=== PATIENT | male | born 1940 | race Caucasian/White ===

== ENCOUNTER → 2016-03-25 | Outpatient (CLI) | payer MEDICARE, OTHER ==
[~2016-03-25] MED LIST: APIX5TAB PO; ASPI-586 PO; ASPI-84 PO; CEPH500C PO; CEPH500T PO; CHOL200018 PO; CLPD75T PO; FINA5TAB6 PO; FURO40TA4 PO; GLIM2TAB PO; JANUVIA; LISI-552 PO; METO25TA PO; MULT1CAP27 PO; NIA500ERT PO; OMG1KC PO; PANT40TA3 PO; PIOG1TAB10 PO; PIOG30TA26 PO; POTA10TA36 PO; QUIN10TA PO; RIVA20TA PO; SIMV40TA2 PO; SIMV40TA4 PO; SITA100T12 PO; TAMS0.4C2 PO
--- NOTE | 2016-03-25 11:42 | Diagnostic Imaging Report ---
PROCEDURE: CT abdomen and pelvis without contrast. TECHNIQUE: Multiple contiguous axial images were obtained through the abdomen and pelvis without the use of intravenous contrast. INDICATION: Gross hematuria with lower back pain x 2 weeks. COMPARISON STUDY: CT scan dated 11/07/2013. FINDINGS: There has been development of a 2.8 cm right pleural effusion. Coronary artery calcifications are present. A cardiac pacemaker is in place. The liver, gallbladder, spleen, pancreas, and adrenal glands appear normal. The left kidney appears normal. Some stranding around the left kidney is unchanged. A 4.6 cm cyst in the upper pole of the right kidney is unchanged. Some calcifications seen in the right kidney appear to be vascular. Some stranding of the adjacent fat was seen previously. A small fat-containing umbilical hernia is present. The urinary bladder is contracted. Its wall thickening is probably secondary to the bladder being contracted. There are a few colonic diverticuli without inflammation. The bowel loops are otherwise normal. No ascites, free air, or abnormal adenopathy. Arteriosclerosis is present. 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 There is probably a stenosis at the aortic bifurcation. Degenerative changes are present in the sacroiliac joints and lumbar spine. IMPRESSION: 1. The urinary bladder is contracted with bladder wall thickening. This could be due to the bladder being contracted. 2. No renal calculus or hydronephrosis is present. 3. There is chronic stranding of the perinephric fat. 4. Diverticulosis is again identified. 5. Arteriosclerosis. 6. There has been development of a right pleural effusion. Dictated by: Dictated on workstation # [id number]
== END ==
LOC: RAD 11:12
PROVIDERS: ATTEND Urology
DX: K57.90 Diverticulosis of intestine, part unspecified, without perforation or abscess without bleeding (principal); J90 Pleural effusion, not elsewhere classified; R31.0 Gross hematuria
CPT/HCPCS: 74176

== ENCOUNTER 2016-04-07 11:23 | Inpatient (IN) | payer MEDICARE, OTHER ==
[~2016-04-07] VITALS: Ht 162.6 cm; Wt 73.5 kg
[~2016-04-07 11:23] MED LIST changes: -APIX5TAB PO; -ASPI-586 PO; -CEPH500C PO; -CEPH500T PO; -FINA5TAB6 PO; -FURO40TA4 PO; -GLIM2TAB PO; -LISI-552 PO; -PANT40TA3 PO; -PIOG30TA26 PO; -POTA10TA36 PO; -RIVA20TA PO; -SIMV40TA4 PO; -SITA100T12 PO; -TAMS0.4C2 PO
--- NOTE | 2016-04-07 11:40 | ED General ---
General Stated Complaint: FALL Source of Information: Patient Exam Limitations: No Limitations History of Present Illness Time Seen by Provider: 11:38 Initial Comments To ER per EMS from home with reports of a fall. Full occurred secondary to dizziness and it occurred 7-8 days ago he believes, however he reports that it was on Thursday that he fell and he was unaware that yesterday was Thursday.. He denies striking his head that he recalls but is not sure. He states that he's been laying on the floor for the past 7-8 days unable to obtain food or water. Today he finally was able to crawl to a telephone call his brother found him and summoned EMS. Timing/Duration: 1-2 Days Severity: Moderate Allergies and Home Medications Allergies Coded Allergies: No Known Drug Allergies (Unverified , 06/02/10) Home Medications ?MG DAILY (Reported) Aspirin 81 Mg Tablet.dr 81 MG PO DAILY (Reported) Cholecalciferol (Vitamin D3) 2,000 Unit Capsule 1,000 UNIT PO DAILY (Reported) Clopidogrel 75 Mg Tablet 1 EACH PO DAILY (Reported) Metoprolol Succinate 25 Mg Tab.sr.24h 25 MG PO DAILY (Reported) Multivitamins 1 Each Capsule 1 EACH PO DAILY (Reported) Niacin 500 Mg Tablet.sa 500 MG PO DAILY (Reported) Hemphill 3 Polyunsat Fatty Acids 1,000 Mg Cap 1,000 MG PO DAILY (Reported) Pioglitazone/Glimepiride 1 Each Tablet 1 EACH PO DAILY (Reported) Quinapril Hcl 10 Mg Tablet 10 MG PO DAILY (Reported) Simvastatin 40 Mg Tablet 40 MG PO DAILY (Reported) Constitutional: see HPI EENTM: see HPI Respiratory: no symptoms reported Cardiovascular: no symptoms reported Genitourinary: no symptoms reported Musculoskeletal: no symptoms reported Skin: no symptoms reported Psychiatric/Neurological: See HPI Other (his only complaint is of dizziness which precipitated the fall. He denies any focal) Hematologic/Lymphatic: No Symptoms Reported Immunological/Allergic: no symptoms reported Physical Exam Vital Signs Vital Sign - Last 12Hours 04/07/16 11:28 Temp 96.8 Pulse 60 Resp 20 B/P 178/77 Pulse Ox 95 O2 Delivery Room Air Capillary Refill : General Appearance: No Apparent Distress WD/WN Other (mentation is intact, he is laughing and joking with staff. GCS 15. Saturated in urine but not feces. Would question whether or not he was truly on the floor for 8 days as he states. ) Eyes: Bilateral Eye EOMI, Bilateral Eye Normal Inspection, Bilateral Eye PERRL HEENT: PERRL/EOMI TMs Normal Normal ENT Inspection Neck: Full Range of Motion Normal Inspection Respiratory: No Accessory Muscle Use No Respiratory Distress Decreased Breath Sounds Cardiovascular: Regular Rate, Rhythm Normal Peripheral Pulses Gastrointestinal: Normal Bowel Sounds Non Tender Soft Extremity: Normal Capillary Refill Normal Inspection Neurologic/Psychiatric: Alert Oriented x3 No Motor/Sensory Deficits Other ( moves all extremities) Skin: Normal Color Warm/Dry Other (small quarter sized ecchymosis to the anterior right chest, skin breakdown buttocks) Progress/Results/Core Measures Results/Orders Lab Results Laboratory Tests Test 04/07/16 11:37 04/07/16 13:24 Range/Units Alanine Aminotransferase (ALT/SGPT) 51 0-55 U/L Albumin 3.8 3.2-4.5 G/DL Alkaline Phosphatase 82 40-136 U/L Anion Gap 15 H 5-14 MMOL/L Aspartate Amino Transf (AST/SGOT) 44 H 5-34 U/L B-Type Natriuretic Peptide 761.0 H <100.0 PG/ML BUN/Creatinine Ratio 38 Band Neutrophils 1 % Basophils # (Auto) 0.0 0.0-0.1 10^3/uL Basophils % (Manual) 0 % Basophils (%) (Auto) 0 0-10 % Blood Urea Nitrogen 42 H 7-18 MG/DL Calcium Level 9.1 8.5-10.1 MG/DL Carbon Dioxide Level 19 L 21-32 MMOL/L Chloride Level 111 H 98-107 MMOL/L Creatinine 1.11 0.60-1.30 MG/DL Eosinophils # (Auto) 0.0 0.0-0.3 10^3/uL Eosinophils % (Manual) 0 % Eosinophils (%) (Auto) 0 0-10 % Estimat Glomerular Filtration Rate > 60 Glucose Level 181 H 70-105 MG/DL Hematocrit 38 L 40-54 % Hemoglobin 11.9 L 13.3-17.7 G/DL INR Comment 1.4 0.8-1.4 Lactic Acid Level 1.2 0.5-2.0 MMOL/L Lymphocytes # (Auto) 0.6 L 1.0-4.0 X 10^3 Lymphocytes % (Manual) 3 % Lymphocytes (%) (Auto) 5 L 12-44 % Mean Corpuscular Hemoglobin 28 25-34 PG Mean Corpuscular Hemoglobin Concent 32 32-36 G/DL Mean Corpuscular Volume 89 80-99 FL Mean Platelet Volume 10.0 7.4-10.4 FL Monocytes # (Auto) 0.8 0.0-1.0 X 10^3 Monocytes % (Manual) 3 % Monocytes (%) (Auto) 6 0-12 % Myoglobin 529.3 H 10.0-92.0 NG/ML Neutrophils # (Auto) 10.8 H 1.8-7.8 X 10^3 Neutrophils % (Manual) 93 % Neutrophils (%) (Auto) 89 H 42-75 % Platelet Count 248 130-400 10^3/uL Potassium Level 4.0 3.6-5.0 MMOL/L Prothrombin Time 16.6 H 12.2-14.7 SEC Red Blood Count 4.23 L 4.35-5.85 10^6/uL Red Cell Distribution Width 15.7 H 10.0-14.5 % Sodium Level 145 135-145 MMOL/L Total Bilirubin 1.7 H 0.1-1.0 MG/DL Total Creatine Kinase 361 H 30-200 U/L Total Protein 6.2 L 6.4-8.2 G/DL Troponin I < 0.30 <0.30 NG/ML White Blood Count 12.1 H 4.3-11.0 10^3/uL Urine Amorphous Sediment FEW EUGENE URATES H /LPF Urine Bacteria FEW H /HPF Urine Bilirubin NEGATIVE NEGATIVE Urine Casts NONE /LPF Urine Clarity CLEAR Urine Color YELLOW Urine Crystals PRESENT H /LPF Urine Culture Indicated YES Urine Glucose (UA) NEGATIVE NEGATIVE Urine Ketones 4+ H NEGATIVE Urine Leukocyte Esterase 1+ H NEGATIVE Urine Mucus NEGATIVE /LPF Urine Nitrite NEGATIVE NEGATIVE Urine Other FEW SPERM H /HPF Urine Protein 3+ H NEGATIVE Urine RBC 50-100 H /HPF Urine RBC (Auto) 5+ H NEGATIVE Urine Specific [place] 1.020 1.016-1.022 Urine Urobilinogen 4 H NORMAL MG/DL Urine WBC 10-25 H /HPF Urine pH 6 5-9 My Orders Orders-ARIANNA SAUER APRN Cbc With Automated Diff (04/07/16 11:36) Saline Lock/Iv-Start (04/07/16 11:36) Ekg Tracing (04/07/16 11:36) Troponin I (04/07/16 11:36) Comprehensive Metabolic Panel (04/07/16 11:36) Creatine Kinase (04/07/16 11:36) Myoglobin Serum (04/07/16 11:36) Protime With Inr (04/07/16 11:36) Blood Culture (04/07/16 11:36) Lactic Acid Analyzer (04/07/16 11:36) Ct Head/Cervical Spine Wo (04/07/16 11:36) Chest 1 View, Ap/Pa Only (04/07/16 11:36) Pelvis (04/07/16 11:36) Ns Iv 1000 Ml (Sodium Chloride 0.9%) (04/07/16 11:45) Manual Differential (04/07/16 11:37) Ua Culture If Indicated (04/07/16 12:19) Albuterol/Ipra Inhalation Soln (Duoneb I (04/07/16 13:30) Svn Sm Volume Nebulizer Rt-Rfs (04/07/16 13:27) BNP (04/07/16 13:27) Chest 1 View, Ap/Pa Only (04/07/16 13:27) Albuterol/Ipra Inhalation Soln (Duoneb I (04/07/16 13:21) Urine Culture (04/07/16 13:24) Furosemide Injection (Lasix Injection) (04/07/16 14:15) Medications Given in ED Current Medications Medications Dose Ordered Sig/Logan Route Start Time Stop Time Status Last Admin Dose Admin Albuterol/ Ipratropium 3 ml STK-MED ONCE .ROUTE 04/07/16 13:21 04/07/16 13:30 DC 04/07/16 13:34 3 ML Furosemide 40 mg ONCE ONCE IVP 04/07/16 14:15 04/07/16 14:17 DC 04/07/16 14:27 40 MG Vital Signs/I&O Vital Sign - Last 12Hours 04/07/16 04/07/16 11:28 13:36 Temp 96.8 Pulse 60 Resp 20 B/P 178/77 Pulse Ox 95 95 O2 Delivery Room Air Room Air Progress Note : Progress Note 1252-she now reports that he fell yesterday. Diagnostic Imaging Diagonstic Imaging: Xray, CT Comments NAME: KIRSTIN LEE [facility] REC#: [id number] PT STATUS: REG ER : 1940 PHYSICIAN: ARIANNA SAUER APRN ADMIT DATE: 04/07/16/ER Draft Date of Exam:04/07/16 CT HEAD/CERVICAL SPINE WO CLINICAL INDICATION: Patient woke up this morning and could not move left side of body. EXAM: Head CT without IV contrast. Axial CT scan of the cervical spine with sagittal and coronal reformations. COMPARISON: Head CT without IV contrast dated 06/02/2010. FINDINGS: Head CT: There is no evidence of acute cerebral infarct, intracranial hemorrhage, or gross mass effect. There are focal and patchy areas of low-attenuation white matter changes throughout both cerebral hemispheres, likely representing chronic small vessel ischemic disease. There is normal plata-white matter distinction. The brain parenchymal volume appears appropriate for patient's age. There is no significant midline shift or herniation. There is no evidence of hydrocephalus. The basal cisterns are unremarkable. The skull, extracranial soft tissue, and orbits are unremarkable. There is a small air-fluid level in the right maxillary sinus and sphenoid sinus. There is mild mucosal thickening involving the ethmoid sinus, right maxillary sinus, and sphenoid sinus region. Cervical spine: There is no evidence of acute cervical spine fracture or dislocation. There are mild to moderately hypertrophic disc spurs seen throughout the cervical spine. There is qpwfggbb-lq-zobfux loss of intervertebral disc height at the C3-C4 level with small uncinate spurs. There is associated bvqwjtqu-qx-qjvmoh C3-C4 bilateral neuroforamen narrowing (right side more than the left). There is mild C3-C4 bilateral facet arthropathy. There is suggestion of C2-C3 posterior disc herniation with ligamentum flavum buckling which cause at least moderate central canal narrowing. There is at least moderate central canal narrowing at the C3-C4, C4-C5 levels due to posterior disc osteophyte complexes and facet arthropathy. IMPRESSION: 1: Age-related brain parenchymal changes with no evidence of acute intracranial process. If there is continued concern for acute cerebral infarct, then MRI of the brain would better evaluate. 2: There is multilevel cervical spine degenerative disc disease with no evidence of acute fracture or dislocation. Dictated on workstation # [id number] Dict: 04/07/16 1209 Trans: 04/07/16 1228 [id number] [id number] Interpreted by: REGIS ROSALES MD Electronically signed by: NAME: KIRSTIN LEE [facility] REC#: [id number] PT STATUS: REG ER : 1940 PHYSICIAN: ARIANNA SAUER APRN ADMIT DATE: 04/07/16/ER Draft Date of Exam:04/07/16 CHEST 1 VIEW, AP/PA ONLY CLINICAL INDICATION: Patient status post fall and has been on wood floor at home for 7-10 days. Portable chest x-ray exam. COMPARISON: Chest x-ray dated 07/11/2010. FINDINGS: Patient is slightly rotated on this exam. There is interval elevation of the right hemidiaphragm. There is mild diffuse bilateral lung opacities which may represent atelectasis, but infiltrates cannot be completely excluded. There is no pleural effusion or pneumothorax. There is cardiomegaly with no significant pulmonary vascular congestion. Again seen cardiac pacemaker with two leads projecting over the heart which appear intact. There are degenerative spurs seen throughout the spine. IMPRESSION: 1: Patient is rotated on exam. 2: There is mild diffuse bilateral lung atelectasis or infiltrates. 3: Cardiomegaly with no significant pulmonary vascular congestion. 4: Interval elevation of the right hemidiaphragm. Dictated on workstation # [id number] Dict: 04/07/16 1247 Trans: 04/07/16 1255 SARA [id number] Interpreted by: REGIS ROSALES MD Electronically signed by: Departure Communication Time/Spoke to Admitting Phy: 14:21 Communication I discussed with Dr. Clemente. We will admit the patient, cardiology consult, IV antibiotics for urinary tract infection Time/Spoke to Consulting Physi: 14:30 Communication/Consulting I did notify Dr. Ruiz of the cardiology consult. Dr. Barrientos will be back in town tomorrow morning and will see the patient then. Dr. Ruiz will be available for any emergencies in the meantime Progress Notes Due to the increasing wet sounding cough throughout his ER stay after 1 L of fluids a chest x-ray was repeated while in the emergency room. BNP is elevated at 781. 1 single dose of Lasix 40 mg IV was given. Impression Impression: Primary Impression: Fall at home Qualified Code: W19.XXXA - Unspecified fall, initial encounter Additional Impressions: Urinary tract infection Qualified Code: N30.01 - Acute cystitis with hematuria General weakness Disposition: ADMITTED INPATIENT Condition: Stable Decision to Admit Reason: Admit from ER (General) Decision to Admit/Date: Apr 07, 2016 Time/Decision to Admit Time: 13:46 Departure-Patient Inst. Referrals: GLADYS CLEMENTE DO (PCP/Family) Primary Care Physician ARIANNA SAUER APRN Apr 07, 2016 11:40
[2016-04-07] MEDS ORDERED: NS IV 1000 ML 1,000 ML IV SCH (11:45)
[2016-04-07 11:48] LABS: BASOPHILS % (AUTO) 0 % (0-10); EOSINOPHILS % (AUTO) 0 % (0-10); LYMPHOCYTES # (AUTO) 0.6 X 10^3 (1.0-4.0); LYMPHOCYTES % (AUTO) 5 % (12-44); MEAN CORPUSCULAR HEMOGLOBIN 28 PG (25-34); MEAN CORPUSCULAR HGB CONC 32 G/DL (32-36); MEAN CORPUSCULAR VOLUME 89 FL (80-99); MONOCYTES # (AUTO) 0.8 X 10^3 (0.0-1.0); MONOCYTES % (AUTO) 6 % (0-12); NEUTROPHILS # (AUTO) 10.8 X 10^3 (1.8-7.8); NEUTROPHILS % (AUTO) 89 % (42-75); PLATELET COUNT 248 10^3/uL (130-400); RED BLOOD COUNT 4.23 10^6/uL (4.35-5.85); RED CELL DISTRIBUTION WIDTH 15.7 % (10.0-14.5); WHITE BLOOD COUNT 12.1 10^3/uL (4.3-11.0)
[2016-04-07 12:00] LABS: INR 1.4 (0.8-1.4); PROTHROMBIN TIME PATIENT 16.6 SEC (12.2-14.7)
[2016-04-07 12:11] LABS: ALANINE AMINOTRANSFERASE 51 U/L (0-55); ALBUMIN 3.8 G/DL (3.2-4.5); ANION GAP 15 MMOL/L (5-14); ASPARTATE AMINO TRANSFERASE 44 U/L (5-34); BILIRUBIN,TOTAL 1.7 MG/DL (0.1-1.0); BLOOD UREA NITROGEN 42 MG/DL (7-18); BUN/CREATININE RATIO 38; CALCIUM 9.1 MG/DL (8.5-10.1); CARBON DIOXIDE 19 MMOL/L (21-32); CHLORIDE 111 MMOL/L (98-107); CREATINE KINASE 361 U/L (30-200); CREATININE SERUM 1.11 MG/DL (0.60-1.30); GFR ESTIMATED > 60; GLUCOSE 181 MG/DL (70-105); SODIUM 145 MMOL/L (135-145); TOTAL PROTEIN 6.2 G/DL (6.4-8.2)
[2016-04-07 12:18] LABS: MYOGLOBIN SERUM 529.3 NG/ML (10.0-92.0); TROPONIN I < 0.30 NG/ML (<0.30)
--- NOTE | 2016-04-07 12:28 | Diagnostic Imaging Report ---
CLINICAL INDICATION: Patient woke up this morning and could not move left side of body. EXAM: Head CT without IV contrast. Axial CT scan of the cervical spine with sagittal and coronal reformations. COMPARISON: Head CT without IV contrast dated 06/02/2010. FINDINGS: Head CT: There is no evidence of acute cerebral infarct, intracranial hemorrhage, or gross mass effect. There are focal and patchy areas of low-attenuation white matter changes throughout both cerebral hemispheres, likely representing chronic small vessel ischemic disease. There is normal plata-white matter distinction. The brain parenchymal volume appears appropriate for patient's age. There is no significant midline shift or herniation. There is no evidence of hydrocephalus. The basal cisterns are unremarkable. The skull, extracranial soft tissue, and orbits are unremarkable. There is a small air-fluid level in the right maxillary sinus and sphenoid sinus. There is mild mucosal thickening involving the ethmoid sinus, right maxillary sinus, and sphenoid sinus region. Cervical spine: There is no evidence of acute cervical spine fracture or dislocation. There are mild to moderately hypertrophic disc spurs seen throughout the cervical spine. There is zwbrwnok-xw-lycifo loss of intervertebral disc height at the C3-C4 level with small uncinate spurs. There is associated kraackwy-da-gnoehl C3-C4 bilateral neuroforamen narrowing (right side more than the left). There is mild C3-C4 bilateral facet arthropathy. There is suggestion of C2-C3 posterior disc herniation with ligamentum flavum buckling which cause at least moderate central canal narrowing. There is at least moderate central canal narrowing at the C3-C4, C4-C5 levels due to posterior disc osteophyte complexes and facet arthropathy. IMPRESSION: 1: Age-related brain parenchymal changes with no evidence of acute intracranial process. If there is continued concern for acute cerebral infarct, then MRI of the brain would better evaluate. 2: There is multilevel cervical spine degenerative disc disease with no evidence of acute fracture or dislocation. Dictated by: Dictated on workstation # [id number]
[2016-04-07 12:31] LABS: BAND NEUTROPHILS 1 %; BASOPHILS % (MANUAL) 0 %; EOSINOPHILS % (MANUAL) 0 %; LYMPHOCYTES % (MANUAL) 3 %; NEUTROPHILS % (MANUAL) 93 %
--- NOTE | 2016-04-07 12:55 | Diagnostic Imaging Report ---
CLINICAL INDICATION: Patient status post fall and has been on wood floor at home for 7-10 days. Portable chest x-ray exam. COMPARISON: Chest x-ray dated 07/11/2010. FINDINGS: Patient is slightly rotated on this exam. There is interval elevation of the right hemidiaphragm. There is mild diffuse bilateral lung opacities which may represent atelectasis, but infiltrates cannot be completely excluded. There is no pleural effusion or pneumothorax. There is cardiomegaly with no significant pulmonary vascular congestion. Again seen cardiac pacemaker with two leads projecting over the heart which appear intact. There are degenerative spurs seen throughout the spine. IMPRESSION: 1: Patient is rotated on exam. 2: There is mild diffuse bilateral lung atelectasis or infiltrates. 3: Cardiomegaly with no significant pulmonary vascular congestion. 4: Interval elevation of the right hemidiaphragm. Dictated by: Dictated on workstation # [id number]
--- NOTE | 2016-04-07 13:00 | Diagnostic Imaging Report ---
Pelvis at 12:38 p.m. INDICATION: Fell. Single AP view of the pelvis is obtained. FINDINGS: There is no fracture, dislocation, or acute bony abnormality evident. There is at least moderate degenerative disease involving the hip joints. There is also moderate degenerative disease of the sacroiliac joints. The degenerative changes are no different than noted on the recent CT abdomen/pelvis exam of 03/25/2016. The soft tissues are unremarkable. IMPRESSION: There is no evidence for an acute bony abnormality. Dictated by: Dictated on workstation # [id number]
[2016-04-07] MEDS ORDERED: RT-ALBUTEROL/IPRATROPIUM 3 ML (DUONEB) VIAL ONE (13:21)
[2016-04-07] MEDS ORDERED: RT-ALBUTEROL/IPRATROPIUM 3 ML (DUONEB) VIAL INH ONE (13:30)
[2016-04-07 13:31] LABS: BILIRUBIN,URINE NEGATIVE (NEGATIVE); KETONES,URINE 4+ (NEGATIVE); LEUKOCYTE ESTERASE ,URINE 1+ (NEGATIVE); NITRITE,URINE NEGATIVE (NEGATIVE); PH,URINE 6 (5-9); PROTEIN,URINE 3+ (NEGATIVE); UROBILINOGEN,URINE 4 MG/DL (NORMAL)
[2016-04-07] MEDS ORDERED: FUROSEMIDE 40 MG/4 ML INJ (LASIX) IVP ONE (14:15)
--- NOTE | 2016-04-07 14:42 | Diagnostic Imaging Report ---
Portable erect AP chest at 1:30 PM. INDICATION: Respiratory distress. The cardiomegaly and left-sided pacemaker seen on the exam performed earlier today are again evident and no different. In the interval since the previous study, however, a vague area of increased density has developed in the right lung base; and the right hemidiaphragm is now obscured. Most likely this finding due to atelectasis/infiltrate. There could be some fluid in this area as well. The right upper lung and left lung remain generally clear. The central pulmonary vascularity is somewhat prominent but not significantly changed when compared to the prior study. The mediastinum is not widened. The osseous structures are intact. IMPRESSION: The appearance of the chest has worsened since the prior study as an area of abnormal density has developed in the right lower lobe and the right hemidiaphragm is now obscured. Most likely these findings are secondary to atelectasis/pneumonia and fluid. A followup exam should be considered for further study. Dictated by: Dictated on workstation # [id number]
[2016-04-07] MEDS ORDERED: CEFEPIME INJECTION 2,000 MG in NORMAL SALINE (BAXTER MINI) 50 ML IV ONE (16:00)
--- NOTE | 2016-04-07 17:06 | History & Physicial ---
History of Present Illness History of Present Illness Reason for visit/HPI This is a 76 year old male who was brought to the emergency room after a fall. According to the patient he has not been feeling well the past week and fell yesterday at some point. He was finally able to make it to a phone today to call his brother. He was brought to the emergency room by EMS where he was found to have an acute UTI with pulmonary edema. He was very weak with some confusion as well. CT scan of the head showed no evidence of acute stroke. He will be admitted and started on rocephin and urine cultured. He was given lasix in the emergency room. Date of Admission Apr 07, 2016 at 15:13 I consulted on this patient on 04/07/16 16:59 Attending Physician Pricila Clemente DO Admitting Physician Pricila Clemente DO Consult Allergies and Home Medications Allergies Coded Allergies: No Known Drug Allergies (Unverified , 06/02/10) Home Medications ?MG DAILY (Reported) Aspirin 81 Mg Tablet.dr 81 MG PO DAILY (Reported) Cholecalciferol (Vitamin D3) 2,000 Unit Capsule 1,000 UNIT PO DAILY (Reported) Clopidogrel 75 Mg Tablet 1 EACH PO DAILY (Reported) Metoprolol Succinate 25 Mg Tab.sr.24h 25 MG PO DAILY (Reported) Multivitamins 1 Each Capsule 1 EACH PO DAILY (Reported) Niacin 500 Mg Tablet.sa 500 MG PO DAILY (Reported) [place] 3 Polyunsat Fatty Acids 1,000 Mg Cap 1,000 MG PO DAILY (Reported) Pioglitazone/Glimepiride 1 Each Tablet 1 EACH PO DAILY (Reported) Quinapril Hcl 10 Mg Tablet 10 MG PO DAILY (Reported) Simvastatin 40 Mg Tablet 40 MG PO DAILY (Reported) Past Qtvmfpe-Dslkrb-Tevigk Hx Patient Social History Alcohol Use: Denies Use Recreational Drug Use: No Smoking Status: Current Everyday Smoker Type Used: Cigarettes Physical Abuse Screen: No Sexual Abuse: No Recent Foreign Travel: No Contact w/other who traveled: No Recent Hopitalizations: No Recent Infectious Disease Expo: No Surgeries HX Surgeries: No Cardiovascular Hx Cardiovascular Disorders: Yes (PACEMAKER) Cardiac Disorders: Atrial Fibrillation Neurological Hx Neurological Disorders: No Genitourinary Hx Genitourinary Disorders: No Gastrointestinal Hx Gastrointestinal Disorders: No Musculoskeletal Hx Musculoskeletal Disorders: No Endocrine Hx Endocrine Disorders: No HEENT HX ENT Disorders: No Cancer Hx Cancer: No Psychosocial Hx Psychiatric Problems: No Blood Transfusions Hx Blood Disorders: No Constitutional: weakness EENTM: No blurred vision, No dental problems, No double vision, No ear discharge, No ear pain, No epistaxis, No eye pain, No hearing loss, No hoarseness, No mouth pain, No mouth swelling, No no symptoms reported, No nose congestion, No nose pain, No other, No see HPI, No tearing, No throat pain, No throat swelling, No vision loss Respiratory: short of breath Cardiovascular: No no symptoms reported, No see HPI, No chest pain, No edema, No Hx of Intervention, No palpitations, No syncope, No vascular heart diseas, No other Gastrointestinal: No RUQ, No LUQ, No RLQ, No LLQ, No no symptoms reported, No see HPI, No abdominal pain, No constipation, No diarrhea, No dysphagia, No hematemesis, No heartburn, No jaundice, No loss of appetite, No melena, No nausea, No vomiting, No other Genitourinary: incontinence Musculoskeletal: muscle weakness Skin: No no symptoms reported, No see HPI, No change in color, No change in hair/nails, No dryness, No hx of skin cancer, No lesions, No lumps, No pruritus , No rash, No other Psychiatric/Neurological: Numbness Weakness Physical Exam Vital Signs Vital Sign - Last 12Hours 04/07/16 11:28 Temp 96.8 Pulse 60 Resp 20 B/P 178/77 Pulse Ox 95 O2 Delivery Room Air Capillary Refill : Less Than 3 Seconds General Appearance: Mild Distress HEENT: Normal ENT Inspection Neck: Supple Respiratory: Crackles Decreased Breath Sounds Cardiovascular: Regular Rate, Rhythm Systolic Murmur Gallop/S3 Gastrointestinal: Normal Bowel Sounds Soft Tenderness (suprapubic) Rectal: Deferred Back: No CVA Tenderness Extremity: Non Tender No Calf Tenderness No Pedal Edema Neurologic/Psychiatric: Alert Motor Weakness (generalized) Comments Laboratory Tests 04/07/16 11:37: Alanine Aminotransferase (ALT/SGPT) 51, Albumin 3.8, Alkaline Phosphatase 82, Anion Gap 15H, Aspartate Amino Transf (AST/SGOT) 44H, B-Type Natriuretic Peptide 761.0H, BUN/Creatinine Ratio 38, Band Neutrophils 1, Basophils # (Auto) 0.0, Basophils % (Manual) 0, Basophils (%) (Auto) 0, Blood Urea Nitrogen 42H, Calcium Level 9.1, Carbon Dioxide Level 19L, Chloride Level 111H, Creatinine 1.11, Eosinophils # (Auto) 0.0, Eosinophils % (Manual) 0, Eosinophils (%) (Auto ) 0, Estimat Glomerular Filtration Rate > 60, Glucose Level 181H, Hematocrit 38L , Hemoglobin 11.9L, INR Comment 1.4, Lactic Acid Level 1.2, Lymphocytes # (Auto ) 0.6L, Lymphocytes % (Manual) 3, Lymphocytes (%) (Auto) 5L, Mean Corpuscular Hemoglobin 28, Mean Corpuscular Hemoglobin Concent 32, Mean Corpuscular Volume 89, Mean Platelet Volume 10.0, Monocytes # (Auto) 0.8, Monocytes % (Manual) 3, Monocytes (%) (Auto) 6, Myoglobin 529.3H, Neutrophils # (Auto) 10.8H, Neutrophils % (Manual) 93, Neutrophils (%) (Auto) 89H, Platelet Count 248, Potassium Level 4.0, Prothrombin Time 16.6H, Red Blood Count 4.23L, Red Cell Distribution Width 15.7H, Sodium Level 145, Total Bilirubin 1.7H, Total Creatine Kinase 361H, Total Protein 6.2L, Troponin I < 0.30, White Blood Count 12.1H 04/07/16 13:24: Urine Amorphous Sediment FEW EUGENE URATESH, Urine Bacteria FEWH, Urine Bilirubin NEGATIVE, Urine Casts NONE, Urine Clarity CLEAR, Urine Color YELLOW, Urine Crystals PRESENTH, Urine Culture Indicated YES, Urine Glucose (UA) NEGATIVE, Urine Ketones 4+H, Urine Leukocyte Esterase 1+H, Urine Mucus NEGATIVE, Urine Nitrite NEGATIVE, Urine Other FEW SPERMH, Urine Protein 3+H, Urine RBC 50-100H, Urine RBC (Auto) 5+H, Urine Specific [place] 1.020, Urine Urobilinogen 4H, Urine WBC 10-25H, Urine pH 6 Assessment/Plan Assessment and Plan 1. Acute UTI--admit and start Rocephin 2. Fall--likely due to UTI 3. Weakness--treat UTI and restart home meds 4. Pulmonary Edema--Acute Combined Diastolic and Systolic CHF--lasix and update ECHO 5. Diabetes mellitus II--start SSI 6. Hypertension--resume home medications 7. History of CAD and PAD--consult cardiology PRICILA CLEMENTE DO Apr 07, 2016 17:06
[2016-04-07] MEDS ORDERED: CATHETER FLUSH 10 ML SYR IV PRN (17:15)
[2016-04-07] MEDS ORDERED: FLU TRIvalent (5 YOA+) 2016-17 (AFLURIA) 0.5 ML IM ONE (18:15)
[2016-04-07] MEDS: LEVOFLOXACIN 750 MG/D5W 150 ML PRE-MIX IV SCH (19:27)
[2016-04-07 20:00] VITALS: BP 162/63
[2016-04-07] MEDS ORDERED: CEFEPIME 2 GM/NS 50 ML IVPB IV SCH ×2 (20:00)
[2016-04-07] MEDS ORDERED: RT-ALBUTEROL/IPRATROPIUM 3 ML (DUONEB) VIAL INH PRN (21:45)
[2016-04-07] MEDS: CATHETER FLUSH 10 ML SYR IV SCH (22:18)
[2016-04-07] MEDS: inSUlin (REGULAR) HUMAN 1 UNIT/0.01 ML (CHARGE PER UNIT) SC SCH (22:19)
[2016-04-08] VITALS (7 sets, daily range): BP systolic 118–168; BP diastolic 56–72
[2016-04-08] MEDS: inSUlin (REGULAR) HUMAN 1 UNIT/0.01 ML (CHARGE PER UNIT) SC SCH ×4 (06:00→21:00)
[2016-04-08] MEDS: CATHETER FLUSH 10 ML SYR IV SCH ×3 (06:55→22:06)
--- NOTE | 2016-04-08 08:43 | Consultation-Cardiology ---
HPI-Cardiology Cardiology Consultation: Date of Consultation 04/08/16 Date of Admission 04-07-16 Attending Physician Pricila Clemente DO Admitting Physician Pricila Clemente DO Consulting Physician Ni Barrientos MD HPI: Chief Complaint: Non-syncopal fall Mr. Lee is a 76 year old male admitted to [facility] from the ED with a non-syncopal fall. He states he was becoming increasingly weak at home. He states he had a non-syncopal fall approx 7 days prior to his admission. He states he believes he was on the floor at home for 7 days. He states he was too weak to get up. He states he finally called his brother and then his brother called EMS. He states he did not eat or drink anything that he can recall or take his medications for 7 days either. He does not report any loss of consciousness. No loss of bowel or bladder control. He does not report any chest pain, palpitations, shortness of breath or LE edema. He states he feels better today. He reports he has been having blood in his urine for which he is following with Dr. Daniel. Review of Systems-Cardiology Review of Systems Constitutional: As described under HPI Eyes: No blurred vision, No drainage, No pain, No vision change Ears/Nose/Throat: No ear discharge, No ear pain, No nasal drainage, No ulcerations Respiratory: As described under HPI Cardiovascular: As described under HPI Gastrointestinal: No constipation, No diarrhea, No nausea, No vomiting, No stool coloration changes Genitourinary: No dysuria, No discharge, No frequency, hematuriaNo urgency Skin: No rash, No skin related problems, No ulcerations Psychiatric/Neurological: No anxiety, No depression, No focal weakness, No seizure, No syncope Hematologic: No bleeding abnormalities JKB-Grceem-Xjgqxg Hx Patient Social History Alcohol Use: Occasionally Uses Recreational Drug Use: No Smoking Status: Current Everyday Smoker Type Used: Cigarettes Recent Foreign Travel: No Recent Infectious Disease Expo: No Hospitalization with Isolation: Denies Physical Abuse Screen: No Sexual Abuse: No Past Medical History PMH As described under Assessment. Family Medical History Family Medical History: He reports his mother had hypertension and a stroke. He also reports his sister had a stroke. Allergies and Home Medications Allergies Coded Allergies: No Known Drug Allergies (Unverified , 06/02/10) Home Medications Apixaban 5 Mg Tablet 5 MG PO BID (Reported) Aspirin 81 Mg Tablet.dr 81 MG PO DAILY (Reported) Finasteride 5 Mg Tablet 5 MG PO DAILY (Reported) Furosemide 40 Mg Tablet 40 MG PO Q48H PRN PRN SWELLING (Reported) Glimepiride 2 Mg Tablet 4 MG PO DAILY (Reported) TAKES 2 (2MG) TABLETS Glimepiride 2 Mg Tablet 2 MG PO HS (Reported) Lisinopril 20 Mg Tablet 20 MG PO HS (Reported) Metoprolol Succinate 25 Mg Tab.sr.24h 25 MG PO HS (Reported) LAST FILLED #30 02-18-16 Pioglitazone HCl 30 Mg Tablet 30 MG PO DAILY (Reported) Potassium Chloride 10 Meq Tab.er.prt 10 MEQ PO Q48H PRN PRN WHEN TAKING FUROSEMIDE (Reported) Simvastatin 40 Mg Tablet 40 MG PO HS (Reported) Sitagliptin Phosphate 100 Mg Tablet 100 MG PO DAILY (Reported) Tamsulosin HCl 0.4 Mg Cap.er.24h 0.4 MG PO HS (Reported) Physical Exam-Cardiology Physical Exam Vital Signs/I&O Vital Sign - Last 12Hours 04/08/16 04/08/16 04/08/16 04/08/16 03:45 07:00 07:29 08:00 Temp 98.3 96.9 Pulse 60 60 60 Resp 18 20 B/P 167/72 168/61 Pulse Ox 93 91 93 O2 Delivery Room Air Room Air 04/08/16 04/08/16 04/08/16 09:00 12:00 13:09 Temp 98.9 Pulse 60 Resp 20 B/P 152/62 Pulse Ox 93 91 90 O2 Delivery Room Air Room Air Intake and Output 04/08/16 00:00 Intake Total 370 ml Output Total 235 ml Balance 135 ml Capillary Refill : Less Than 3 Seconds Constitutional: appears stated ageNo apparent distress, well-developed well- nourished HEENT: PERRLNo discharge, hearing is well preserved oral hygience is goodNo ulceration, No xanthelasmas are seen Neck: No carotid bruit, carotid pulses are 2 + bilaterally Gastrointestinal: No spleenomegaly Extremities: No clubbing, No cyanosis, No significant edema Neurologic/Psychiatric: alert oriented x 3 power is 5/5 both on sides Skin: No rash, No ulcerations Data Review Labs Laboratory Tests 04/07/16 17:13: Glucometer 165H 04/07/16 20:43: Glucometer 258H 04/08/16 05:52: Glucometer 136H 04/08/16 11:05: Anion Gap 10, BUN/Creatinine Ratio 30, Blood Urea Nitrogen 37H, Calcium Level 8.4L, Carbon Dioxide Level 22, Chloride Level 108H, Creatinine 1.22, Estimat Glomerular Filtration Rate 58, Glucose Level 301H, Potassium Level 3.8, Sodium Level 140 04/08/16 11:11: Glucometer 290H Microbiology 04/07/16 Urine Culture - Preliminary, Resulted NO GROWTH Radiology NAME: [facility]IRSTIN [facility] REC#: [id number] PT STATUS: ADM IN : 1940 PHYSICIAN: ARIANNA SAUER APRN ADMIT DATE: 04/07/16 Signed Date of Exam: 04/07/16 CT HEAD/CERVICAL SPINE WO CLINICAL INDICATION: Patient woke up this morning and could not move left side of body. EXAM: Head CT without IV contrast. Axial CT scan of the cervical spine with sagittal and coronal reformations. COMPARISON: Head CT without IV contrast dated 06/02/2010. FINDINGS: Head CT: There is no evidence of acute cerebral infarct, intracranial hemorrhage, or gross mass effect. There are focal and patchy areas of low-attenuation white matter changes throughout both cerebral hemispheres, likely representing chronic small vessel ischemic disease. There is normal plata-white matter distinction. The brain parenchymal volume appears appropriate for patient's age. There is no significant midline shift or herniation. There is no evidence of hydrocephalus. The basal cisterns are unremarkable. The skull, extracranial soft tissue, and orbits are unremarkable. There is a small air-fluid level in the right maxillary sinus and sphenoid sinus. There is mild mucosal thickening involving the ethmoid sinus, right maxillary sinus, and sphenoid sinus region. Cervical spine: There is no evidence of acute cervical spine fracture or dislocation. There are mild to moderately hypertrophic disc spurs seen throughout the cervical spine. There is yeemwgjl-rt-pjeorh loss of intervertebral disc height at the C3-C4 level with small uncinate spurs. There is associated ecgjajit-aa-paglit C3-C4 bilateral neuroforamen narrowing (right side more than the left). There is mild C3-C4 bilateral facet arthropathy. There is suggestion of C2-C3 posterior disc herniation with ligamentum flavum buckling which cause at least moderate central canal narrowing. There is at least moderate central canal narrowing at the C3-C4, C4-C5 levels due to posterior disc osteophyte complexes and facet arthropathy. IMPRESSION: 1: Age-related brain parenchymal changes with no evidence of acute intracranial process. If there is continued concern for acute cerebral infarct, then MRI of the brain would better evaluate. 2: There is multilevel cervical spine degenerative disc disease with no evidence of acute fracture or dislocation. Dictated by: Dictated on workstation # [id number] Dict: 04/07/16 1209 Trans: 04/07/16 1733 [id number] Interpreted by: REGIS ROSALES MD Electronically signed by:REGIS ROSALES MD 04/07/16 1735 NAME: KIRSTIN LEE [facility] REC#: [id number] PT STATUS: ADM IN : 1940 PHYSICIAN: ARIANNA SAUER APRN ADMIT DATE: 04/07/16 Signed Date of Exam: 04/07/16 CHEST 1 VIEW, AP/PA ONLY Portable erect AP chest at 1:30 PM. INDICATION: Respiratory distress. The cardiomegaly and left-sided pacemaker seen on the exam performed earlier today are again evident and no different. In the interval since the previous study, however, a vague area of increased density has developed in the right lung base; and the right hemidiaphragm is now obscured. Most likely this finding due to atelectasis/infiltrate. There could be some fluid in this area as well. The right upper lung and left lung remain generally clear. The central pulmonary vascularity is somewhat prominent but not significantly changed when compared to the prior study. The mediastinum is not widened. The osseous structures are intact. IMPRESSION: The appearance of the chest has worsened since the prior study as an area of abnormal density has developed in the right lower lobe and the right hemidiaphragm is now obscured. Most likely these findings are secondary to atelectasis/pneumonia and fluid. A followup exam should be considered for further study. Dictated by: Dictated on workstation # [id number] Dict: 04/07/16 1435 Trans: 04/07/162034 [id number] Interpreted by: PAT CARBONE MD Electronically signed by:PAT CARBONE MD 04/07/162037 ECG Impression ECG Initial ECG Impression: Atrial Fibrillation A/P-Cardiology Assessment/Admission Diagnosis UTI - medical services managing Non-syncopal fall with generalized weakness PAF, as documented on pacemaker interrogation of 02/27/16, currently in a-fib per EKG/tele- rate controlled H/O Syncope due to intermittent advanced AV block, corrected with dual-chamber pacemaker implantation on 06/02/2010. The pacemaker is working normally per interrogation carried out on 02/27/16 Vertebrobasilar insufficiency, which has been followed by his Neurologist, Dr. Aguirre. H/O possible postural hypotension due to the patient's medication. This seemed to have resolved following adjustment of beta kvng and NADEGE inhibitor therapy. Coronary artery disease primary consisting of a chronically occluded and collateralized right coronary artery and moderate mid-vessel disease of the left anterior descending artery, unchanged on his most recent cardiac catheterization of 09/20/2008. MPI of January 2015 showed no evidence of significant myocardial ischemia or infarction. Inferior/diaphragmatic wall perfusion is fixed and appears to be due diaphragmatic attenuation. Normal regional wall motion. LVEF 73% Aorta u/s showed no aneurysm involving the mid or distal abdominal aorta on ([facility], [place], [place]) Symptoms of intermittent hematuria. This has been diagnosed to be prostate hypertrophy and is being followed by his urologist, Dr Daniel Hypertension, controlled. Hyperlipidemia being treated with simvastatin, being followed by Dr Clemente. Maturity onset diabetes mellitus. Tobaccoism from which he has been advised to refrain. Moderate right internal carotid arterial disease with a diameter stenosis of approximately 40%. Moderate disease of the left common carotid with a diameter stenosis of approximately 49%. Mild left internal carotid artery disease with a diameter stenosis of 1-40% per carotid ultrasound of 07-30-2012. U/S from 08-11 showed mild to mod mixed bilat plaque involving both common and internal carotid arteries, without evidence of hemodynamic significance Chronic right bundle branch block. History of pulmonary nodule, which has previously been followed by Dr. Giang at [facility], we have referred him to Dr. Mulligan. This has been followed by Dr Mulligan and Dr Orender Chronic exertional dyspnea, clinically stable. Bilateral leg claudication which currently appears well controlled. History of right common angioplasty and right common iliac artery stenting with a 9 x 25 mm iliac artery stent followed by femoral-femoral crossover bypass grafting with a 7 mm straight EPTFE graft by Dr. Giang in March 2006. A Doppler study of February 2011 indicated bilateral aorto-femoral bypass grafting with patency of the visualized distal aspect of the graft at femoral anastomosis. There was considerable distal disease reported. He does report chronic 1-2 block leg claudication symptoms, but this unchanged Discussion and Recomendations Non-syncopal fall with increasing generalized weakness. UTI being managed by medical services. He is unclear on his medications. We are awaiting pharmacy to clarify. Blood pressure is not well controlled. Restart BB and NADEGE for BP control. Restart OAC for stroke prophylaxis. Ortho v/s. Echocardiogram to evaluate cardiac and valvular status. Monitor lab. Advise PT eval for strengthening. Further recommendations will be based on his hospital course. We would like to thank Dr. Clemente for this consult. This consult is being scribed by Tianna Joshi APRN on behalf of Dr. Barrientos after discussion regarding plan of care. Clinical Quality Measures DVT/VTE Risk/Contraindication: Risk Factor Score Per Nursin RFS Level Per Nursing on Admit: 4+=Very High Physician Assessment Physician Assessment Lungs: good bilat air entry Cor: irreg A&R * As documented in our note above * Management complex due to multiple comorbidities * Suspect septicemia from systemic infection (pneumonia and UTI) as the cause of confusion and weakness * I spoke with him in detail and answered questions CRIS JOSHI Apr 08, 2016 08:43 NI BARRIENTOS MD FACP [facility] Apr 08, 2016 15:07
[2016-04-08] MEDS ORDERED: APIXABAN 5 MG (ELIQUIS) TABLET PO NR (10:00)
[2016-04-08] MEDS ORDERED: lisINopril 10 MG (PRINIVIL) TAB PO NR (10:00)
[2016-04-08] MEDS ORDERED: SIMV40TA4 PO (11:19)
[2016-04-08] MEDS ORDERED: FINA5TAB6 PO (11:19)
[2016-04-08] MEDS ORDERED: PIOG30TA26 PO (11:19)
[2016-04-08] MEDS ORDERED: RIVA20TA PO (11:19)
[2016-04-08] MEDS ORDERED: TAMS0.4C2 PO (11:19)
[2016-04-08] MEDS ORDERED: FURO40TA4 PO (11:35)
[2016-04-08] MEDS ORDERED: POTA10TA36 PO (11:35)
[2016-04-08] MEDS ORDERED: LISI-552 PO (11:35)
[2016-04-08] MEDS ORDERED: APIX5TAB PO (11:35)
[2016-04-08] MEDS ORDERED: SITA100T12 PO (11:35)
[2016-04-08] MEDS ORDERED: GLIM2TAB PO ×2 (11:35)
[2016-04-08] MEDS ORDERED: FUROSEMIDE 40 MG (LASIX) TAB PO NR (12:30)
[2016-04-08] MEDS ORDERED: KCL 20 MEQ TAB (K-DUR) PO NR (12:30)
[2016-04-08 12:41] LABS: CALCIUM 8.4 MG/DL (8.5-10.1); CREATININE SERUM 1.22 MG/DL (0.60-1.30); POTASSIUM 3.8 MMOL/L (3.6-5.0)
--- NOTE | 2016-04-08 12:51 | Progress Note (SOAP) ---
Subjective Subjective/Events-last exam Fwup UTI, pneumonia, Acute Combined Systolic/Diastolic CHF, weakness with fall , Diabetes mellitus II, Hypertension. Very weak. Objective Exam Vital Signs Date Time Temp Pulse Resp B/P Pulse Ox O2 Delivery O2 Flow Rate FiO2 04/08/16 12:00 98.9 60 20 152/62 91 Room Air 04/08/16 08:00 96.9 60 20 168/61 93 Room Air 04/08/16 07:29 91 04/08/16 03:45 98.3 60 18 167/72 93 Room Air 04/08/16 01:00 59 04/08/16 00:30 99.0 60 18 144/65 92 Room Air 04/07/16 21:50 96 04/07/16 21:18 95 04/07/16 20:00 97.1 58 20 162/63 96 Room Air 04/07/16 19:00 59 04/07/16 18:00 Room Air 04/07/16 17:41 60 04/07/16 16:30 60 18 95 Room Air 04/07/16 13:36 95 Room Air I & O 04/08/16 07:00 Intake Total 570 ml Output Total 435 ml Balance 135 ml Capillary Refill : Less Than 3 Seconds General Appearance: No Apparent Distress Neck: Supple Respiratory: Crackles (bibasilar) Decreased Breath Sounds Cardiovascular: Regular Rate, Rhythm Systolic Murmur Gallop/S3 Gastrointestinal: normal bowel sounds non tender soft Extremity: Non Tender No Calf Tenderness No Pedal Edema Neurologic/Psychiatric: Alert Oriented x3 Results Lab Laboratory Tests 04/07/16 13:24: Urine Amorphous Sediment FEW EUGENE URATESH, Urine Bacteria FEWH, Urine Bilirubin NEGATIVE, Urine Casts NONE, Urine Clarity CLEAR, Urine Color YELLOW, Urine Crystals PRESENTH, Urine Culture Indicated YES, Urine Glucose (UA) NEGATIVE, Urine Ketones 4+H, Urine Leukocyte Esterase 1+H, Urine Mucus NEGATIVE, Urine Nitrite NEGATIVE, Urine Other FEW SPERMH, Urine Protein 3+H, Urine RBC 50-100H, Urine RBC (Auto) 5+H, Urine Specific [place] 1.020, Urine Urobilinogen 4H, Urine WBC 10-25H, Urine pH 6 04/07/16 17:13: Glucometer 165H 04/07/16 20:43: Glucometer 258H 04/08/16 05:52: Glucometer 136H 04/08/16 11:05: Anion Gap 10, BUN/Creatinine Ratio 30, Blood Urea Nitrogen 37H, Calcium Level 8.4L, Carbon Dioxide Level 22, Chloride Level 108H, Creatinine 1.22, Estimat Glomerular Filtration Rate 58, Glucose Level 301H, Potassium Level 3.8, Sodium Level 140 04/08/16 11:11: Glucometer 290H Microbiology 04/07/16 Urine Culture - Preliminary, Resulted NO GROWTH Assessment/Plan Assessment/Plan Assess & Plan/Chief Complaint 1. Acute Pneumonia--on cefepime and Levaquin, start IS and SVN with duoneb 2. UTI--on Levaquin 3. Acute Combined Systolic and Diastolic CHF--start oral lasix 4. Weakness with falls--start PT 5. Diabetes mellitus II--home meds restarted and on accuchecks with SSI 6. Hypertension--resume home meds Diagnosis/Problems: Clinical Quality Measures DVT/VTE Risk/Contraindication: Risk Factor Score Per Nursin RFS Level Per Nursing on Admit: 4+=Very High GLADYS ORONA DO Apr 08, 2016 12:51
[2016-04-08] MEDS: sitaGLIPtin 50 MG (JANUVIA) TAB PO SCH (12:57)
[2016-04-08] MEDS ORDERED: RT-ALBUTEROL/IPRATROPIUM 3 ML (DUONEB) VIAL INH SCH (14:00)
--- NOTE | 2016-04-08 15:02 | ECHOCARDIOGRAPHY REPORT ---
PROCEDURE PHYSICIAN: BENITA ZUÑIGA DATE OF PROCEDURE: 04/08/2016 TWO DIMENSIONAL ECHOCARDIOGRAM REPORT PRIMARY PHYSICIAN: OTHER PHYSICIAN: Dr. Barrientos, Dr. Clemente REFERRING PHYSICIAN: ORDERING PHYSICIAN: INDICATION FOR THE PROCEDURE: Shortness of breath, urosepsis MEASUREMENTS DERIVED VALUES LV DIAMETER (LAX) NORMALS NORMALS Diastolic 4.3 (3.6-5.2) Eject. Fract. 0.65 60%+/-6%) Systolic 2.7 (2.3-3.9) Diastolic Vol. % Shortening (0.22-0.42) Systolic Vol. Aortic Root IVS THICKNESS Diastolic 1.1 (0.6-1.1) LVPW THICKNESS Diastolic 1.1 (0.6-1.1) LA DIAMETER Systolic 4.2 (2.1-3.7) COMMENTS AND RECOMMENDATIONS: 1. Technically difficult study. 2. Biventricular systolic function appears to be within normal limits with an estimated left ventricular ejection fraction of 65%. No segmental wall motion abnormalities were identified. 3. Moderate mitral annular calcification is present, without evidence for mitral stenosis. Mild mitral insufficiency is present. 4. Mild aortic sclerosis is present, without evidence for aortic stenosis. Neither pulmonic valve or tricuspid valves were well visualized. Tricuspid insufficiency is identified on continuous wave Doppler interrogation. RV systolic pressure is moderately elevated, estimated at 45 to 50 mmHg. The inferior vena cava is dilated and collapses less than 50% on inspiration, indicative of increased right atrial pressure. 5. Mild biatrial chamber dilatation is present. LV and RV chamber dimensions are within normal limits. 6. 2-D viewing does suggest significant diastolic dysfunction. The patient was in ventricularly paced rhythm with no evidence for P wave activity. There is a questionable small posterior pericardial effusion. There is no evidence for intracardiac shunting on suboptimal viewing. ASSESSMENT: Biventricular systolic function is normal with an estimated left ventricular ejection fraction 65%. 2-D viewing does suggest underlying significant diastolic left ventricular dysfunction. Mild biatrial chamber dilatation is present. Tricuspid insufficiency is present. On this technically difficult study severity is difficult to surmise. RV systolic pressure is moderately elevated, estimated at 45 to 50 mmHg. The inferior vena cava was dilated and collapsed less than 50% on inspiration, indicative of increased right atrial pressure. Job ID: [id number] Dictated Date: 04/08/2016 12:24:00 Manager Heart Date: 04/08/2016 13:53:58 / usha MTDD
[2016-04-08] MEDS: CEFEPIME 2 GM/NS 50 ML IVPB IV SCH ×2 (16:59)
[2016-04-08] MEDS: LEVOFLOXACIN 750 MG/D5W 150 ML PRE-MIX IV SCH (17:39)
[2016-04-08] MEDS: SIMvastatin 40 MG (ZOCOR) TAB PO SCH (20:37)
[2016-04-08] MEDS: APIXABAN 5 MG (ELIQUIS) TABLET PO SCH (20:38)
[2016-04-08] MEDS: ALFUZOSIN HCL 10 MG TAB (UROXATRAL) PO SCH (20:38)
[2016-04-08] MEDS: lisINopril 20 MG (ZESTRIL) TAB PO SCH (20:38)
[2016-04-08] MEDS ORDERED: APIXABAN 5 MG (ELIQUIS) TABLET PO SCH (21:00)
[2016-04-08] MEDS: RT-ALBUTEROL/IPRATROPIUM 3 ML (DUONEB) VIAL INH SCH (23:45)
[2016-04-09 03:56] VITALS: BP 132/63
[2016-04-09 05:21] LABS: BASOPHILS % (AUTO) 0 % (0-10); EOSINOPHILS # (AUTO) 0.1 10^3/uL (0.0-0.3); EOSINOPHILS % (AUTO) 2 % (0-10); LYMPHOCYTES # (AUTO) 0.8 X 10^3 (1.0-4.0); LYMPHOCYTES % (AUTO) 11 % (12-44); MEAN CORPUSCULAR HEMOGLOBIN 28 PG (25-34); MEAN CORPUSCULAR HGB CONC 32 G/DL (32-36); MEAN CORPUSCULAR VOLUME 87 FL (80-99); MEAN PLATELET VOLUME 10.2 FL (7.4-10.4); MONOCYTES # (AUTO) 0.8 X 10^3 (0.0-1.0); MONOCYTES % (AUTO) 10 % (0-12); NEUTROPHILS % (AUTO) 78 % (42-75); PLATELET COUNT 210 10^3/uL (130-400); RED BLOOD COUNT 3.83 10^6/uL (4.35-5.85); RED CELL DISTRIBUTION WIDTH 15.6 % (10.0-14.5); WHITE BLOOD COUNT 7.8 10^3/uL (4.3-11.0)
[2016-04-09 05:48] LABS: ALANINE AMINOTRANSFERASE 39 U/L (0-55); ANION GAP 9 MMOL/L (5-14); ASPARTATE AMINO TRANSFERASE 24 U/L (5-34); BLOOD UREA NITROGEN 38 MG/DL (7-18); BUN/CREATININE RATIO 37; CALCIUM 8.3 MG/DL (8.5-10.1); CARBON DIOXIDE 23 MMOL/L (21-32); CHLORIDE 108 MMOL/L (98-107); CREATININE SERUM 1.03 MG/DL (0.60-1.30); GFR ESTIMATED > 60; GLUCOSE 190 MG/DL (70-105); MAGNESIUM 1.6 MG/DL (1.8-2.4); POTASSIUM 3.7 MMOL/L (3.6-5.0); SODIUM 140 MMOL/L (135-145); TOTAL PROTEIN 4.8 G/DL (6.4-8.2)
[2016-04-09] MEDS: inSUlin (REGULAR) HUMAN 1 UNIT/0.01 ML (CHARGE PER UNIT) SC SCH ×4 (05:58→21:18)
[2016-04-09] MEDS: CATHETER FLUSH 10 ML SYR IV SCH ×3 (06:02→21:27)
[2016-04-09] MEDS: KCL 20 MEQ TAB (K-DUR) PO SCH (06:02)
[2016-04-09] MEDS: RT-ALBUTEROL/IPRATROPIUM 3 ML (DUONEB) VIAL INH SCH ×3 (06:45→22:01)
[2016-04-09 08:00] VITALS: BP 117/41
[2016-04-09] MEDS: FINASTERIDE (PROSCAR) 5 MG TAB PO SCH (08:43)
[2016-04-09] MEDS: PIOGLITAZONE 30MG (ACTOS) TAB PO SCH (08:43)
[2016-04-09] MEDS: FUROSEMIDE 40 MG (LASIX) TAB PO SCH (08:43)
[2016-04-09] MEDS: sitaGLIPtin 50 MG (JANUVIA) TAB PO SCH (08:43)
[2016-04-09] MEDS: APIXABAN 5 MG (ELIQUIS) TABLET PO SCH ×2 (08:44→20:33)
[2016-04-09] MEDS: ACETAMINOPHEN 325 MG TABLET/CAPLET (TYLENOL) PO PRN ×2 (08:44→16:39)
[2016-04-09] MEDS: ASPIRIN E.C. 81 MG (ECOTRIN) TAB PO SCH (08:44)
[2016-04-09] MEDS ORDERED: lisINopril 10 MG (PRINIVIL) TAB PO SCH (09:00)
[2016-04-09] MEDS: MENTHOL/ZINC OXIDE (CALMOSEPTINE) 113 GM TUBE TOP SCH ×2 (09:00→20:34)
--- NOTE | 2016-04-09 09:08 | Diagnostic Imaging Report ---
INDICATION: Pneumonia and bladder infection PA and lateral views of the chest are obtained. Comparison is made to study of 04/07/2016. There is slight improvement in aeration of right lung base, however, there is residual infiltrate and probable small amount of right pleural fluid. Pulmonary vascularity is at the upper limits of normal. There is no pneumothorax. Left anterior chest wall dual-chamber cardiac pacemaker is in stable position. IMPRESSION: Mild residual infiltrate in the right base with probable associated pleural fluid has shown some improvement when compared to previous exam. Dictated by: Dictated on workstation # [id number]
--- NOTE | 2016-04-09 09:41 | Progress Note-Cardiology ---
Cardiology SOAP Progress Note Subjective: Sitting up in bed. States he feels better today. No c/o CP, palpitations, dyspnea, syncope or near syncope. Objective: I&O/Vital Signs Vital Sign - Last 12Hours 04/09/16 04/09/16 04/09/16 04/09/16 06:46 07:05 08:00 09:00 Temp 96.2 Pulse 59 60 Resp 20 B/P 117/41 Pulse Ox 92 97 93 O2 Delivery Room Air Room Air 04/09/16 04/09/16 04/09/16 11:40 14:55 16:05 Temp 97.5 97.7 Pulse 60 60 Resp 18 18 B/P 109/49 112/53 Pulse Ox 96 96 94 O2 Delivery Room Air Room Air Intake and Output 04/09/16 00:00 Intake Total 1090 ml Output Total 625 ml Balance 465 ml Weight (Pounds): 162 Weight (Ounces): 0.0 Weight (Calculated Kilograms): 73.099883 Constitutional: appears stated ageNo apparent distress, well-developed well- nourished Respiratory: No accessory muscle use, No respiratory distress, lungs clear to auscultation Cardiovascular: irregularly irregularNo JVD, S1 and S2 Gastrointestional: No tender, soft roundNo spleenomegaly Extremities: No clubbing, No cyanosis, No significant edema Neurologic/Psychiatric: alert oriented x 3 power is 5/5 both on sides Skin: No rash, No ulcerations Results/Procedures: Labs Laboratory Tests 04/08/16 21:03: Glucometer 200H 04/09/16 05:00: Alanine Aminotransferase (ALT/SGPT) 39, Albumin 3.0L, Alkaline Phosphatase 67, Anion Gap 9, Aspartate Amino Transf (AST/SGOT) 24, BUN/Creatinine Ratio 37, Basophils # (Auto) 0.0, Basophils (%) (Auto) 0, Blood Urea Nitrogen 38H, Calcium Level 8.3L, Carbon Dioxide Level 23, Chloride Level 108H, Creatinine 1.03, Eosinophils # (Auto) 0.1, Eosinophils (%) (Auto) 2, Estimat Glomerular Filtration Rate > 60, Glucose Level 190H, Hematocrit 33L, Hemoglobin 10.6L, Lymphocytes # (Auto) 0.8L, Lymphocytes (%) (Auto) 11L, Magnesium Level 1.6L, Mean Corpuscular Hemoglobin 28, Mean Corpuscular Hemoglobin Concent 32, Mean Corpuscular Volume 87, Mean Platelet Volume 10.2, Monocytes # (Auto) 0.8, Monocytes (%) (Auto) 10, Neutrophils # (Auto) 6.0, Neutrophils (%) (Auto) 78H, Platelet Count 210, Potassium Level 3.7, Red Blood Count 3.83L, Red Cell Distribution Width 15.6H, Sodium Level 140, Total Bilirubin 1.0, Total Protein 4.8L, White Blood Count 7.8 04/09/16 10:57: Glucometer 284H 04/09/16 16:09: Glucometer 231H Microbiology 04/07/16 Blood Culture - Preliminary, Resulted No growth 04/07/16 Urine Culture - Final, Complete NO GROWTH A/P: Assessment: UTI - medical services managing Pneumonia - medical services managing Non-syncopal fall with generalized weakness PAF, as documented on pacemaker interrogation of 02/27/16, currently in a-fib per EKG/tele- rate controlled H/O Syncope due to intermittent advanced AV block, corrected with dual-chamber pacemaker implantation on 06/02/2010. The pacemaker is working normally per interrogation carried out on 02/27/16 Vertebrobasilar insufficiency, which has been followed by his Neurologist, Dr. Aguirre. H/O possible postural hypotension due to the patient's medication. This seemed to have resolved following adjustment of beta kvng and NADEGE inhibitor therapy. Biventricular systolic function is normal with an estimated left ventricular ejection fraction 65%. 2-D viewing does suggest underlying significant diastolic left ventricular dysfunction. Mild biatrial chamber dilatation is present. Tricuspid insufficiency is present. On this technically difficult study severity is difficult to surmise. RV systolic pressure is moderately elevated, estimated at 45 to 50 mmHg. The inferior vena cava was dilated and collapsed less than 50% on inspiration, indicative of increased right atrial pressure. Per echocardiogram of 04-08-[address] Blue Coronary artery disease primary consisting of a chronically occluded and collateralized right coronary artery and moderate mid-vessel disease of the left anterior descending artery, unchanged on his most recent cardiac catheterization of 09/20/2008. MPI of January 2015 showed no evidence of significant myocardial ischemia or infarction. Inferior/diaphragmatic wall perfusion is fixed and appears to be due diaphragmatic attenuation. Normal regional wall motion. LVEF 73% Aorta u/s showed no aneurysm involving the mid or distal abdominal aorta on ([facility], [place], [place]) Symptoms of intermittent hematuria. This has been diagnosed to be prostate hypertrophy and is being followed by his urologist, Dr Daniel Hypertension, controlled. Hyperlipidemia being treated with simvastatin, being followed by Dr Clemente. Maturity onset diabetes mellitus. Tobaccoism from which he has been advised to refrain. Moderate right internal carotid arterial disease with a diameter stenosis of approximately 40%. Moderate disease of the left common carotid with a diameter stenosis of approximately 49%. Mild left internal carotid artery disease with a diameter stenosis of 1-40% per carotid ultrasound of 07-30-2012. U/S from 08-11 showed mild to mod mixed bilat plaque involving both common and internal carotid arteries, without evidence of hemodynamic significance Chronic right bundle branch block. History of pulmonary nodule, which has previously been followed by Dr. Giang at [facility], we have referred him to Dr. Mulligan. This has been followed by Dr Mulligan and Dr Clemente Chronic exertional dyspnea, clinically stable. Bilateral leg claudication which currently appears well controlled. History of right common angioplasty and right common iliac artery stenting with a 9 x 25 mm iliac artery stent followed by femoral-femoral crossover bypass grafting with a 7 mm straight EPTFE graft by Dr. Giang in March 2006. A Doppler study of February 2011 indicated bilateral aorto-femoral bypass grafting with patency of the visualized distal aspect of the graft at femoral anastomosis. There was considerable distal disease reported. He does report chronic 1-2 block leg claudication symptoms, but this unchanged Plan: Non-syncopal fall with increasing generalized weakness - improving UTI being managed by medical services. Pneumonia being managed by medical services Blood pressure improved PT to evaluate today Continue current regimen Monitor lab Physician Assessment Physician Assessment Lungs: good bilat air entry, but diminished at the bases Cor: reg A&R * As documented in our note above CRIS MCKEON Apr 09, 2016 09:41 VELASQUEZ HANNON MD FACP FAC CCDS Apr 09, 2016 18:19 Monitor lab CRIS MCKEON Apr 09, 2016 09:41
--- NOTE | 2016-04-09 10:09 | Physical Therapy Evaluation ---
PT Evaluation-General Medical Diagnosis Admission Date Apr 07, 2016 at 15:13 Medical Diagnosis: fall and weakness Onset Date: Apr 07, 2016 Therapy Diagnosis Therapy Diagnosis: impaired mobility, endurance, balance Height/Weight Height (Feet): 5 Height (Inches): 4.00 Weight (Pounds): 162 Weight (Ounces): 0.0 Precautions Precautions/Isolations: Standard Precautions Referral Physician: Cristiane Clemente DO Reason for Referral: Evaluation/Treatment Medical History Pertinent Medical History: Atrial Fib, CAD, DM, HTN, Smoking Additional Medical History pacemaker, PAD Current History fell at home, was able to get to phone to call his brother, brought to ER by ambulance Reviewed History: Yes Social History Home: Single Level Current Living Status: Alone Entry Into Home: Stairs With Railing Prior/Core FIM Prior Level of Function Functional [place] Measure 0=Not Assessed/NA 4=Minimal Assistance 1=Total Assistance 5=Supervision or Setup 2=Maximal Assistance 6=Modified [place] 3=Moderate Assistance 7=Complete [place] Bed Mobility: 7 Transfers (B,C,W/C) (FIM): 7 Gait: 7 Patient states he did not use an assistive device and would walk his dog at least a block. PT Evaluation-Current Subjective Patient in bed pre tx, agrees to PT, pleasant and cooperative. States he has some pain in his left hip and low back but will not rate pain, says it is "some " pain. Pt/Family Goals "to go home" Objective Patient Orientation: Person, Place, Situation ROM/Strength ROM Lower Extremities WNL Strenght Lower Extremities gross strength 4+/5 right leg, 5/5 left leg Integumentary/Posture Bowel Incontinence: No Bladder Incontinence: No Neuromuscular (Tone, Coordination, Reflexes) Patient has intact light touch sensation in both lower extremities, no tongue deviation, even smile, no facial numbness, good tracking and peripheral vision Sensory Hearing: Impaired Sensation Right Lower Extremit: Intact Sensation Left Lower Extremity: Intact Transfers Functional [place] Measure 0=Not Assessed/NA 4=Minimal Assistance 1=Total Assistance 5=Supervision or Setup 2=Maximal Assistance 6=Modified [place] 3=Moderate Assistance 7=Complete [place] Transfers (B, C, W/C) (FIM): 4 Scootin Rollin Supine to/from Sit: 4 Sit to/from Stand: 4 patient needs assist with his legs getting into and out of bed, min assist to stand and is unsteady upon standing Gait Mode of Locomotion: Walk Anticipated Mode of Locomotion: Walk Gait (FIM): 4 Distance: 150' Gait Level of Assist: 4 Gait Persons Needed: 1 Gait Assistive Device: FWW Comments/Gait Description patient is fairly unsteady with walking, needs min assist to maintain balance even with using a walker Balance Sitting Static: Fair Sitting Dynamic: Fair Standing Static: Poor Standing Dynamic: Poor Assessment/Needs Patient has general impaired mobility and poor balance, he even needs assist with balance when using a rolling walker. Slightly weak in the right leg. Rehab Potential: Fair PT Clinical Services Professional Goals Clinical Services Professional Goals PT [facility] Goals Time Frame: Apr 16, 2016 Transfers (B,C,W/C) (FIM): 5 Gait (FIM): 4 Distance: 200' Gait Level of Assist: 4 (CGA) Gait Assistive Device: FWW PT Plan Problem List Problem List: Activity Tolerance, Functional Strength, Safety, Balance, Gait, Transfer, Bed Mobility Treatment/Plan Treatment Plan: Continue Plan of Care Treatment Plan: Bed Mobility, Education, Functional Activity Kevan, Functional Strength, Gait, Safety, Therapeutic Exercise, Transfers Treatment Duration: Apr 16, 2016 # of days/week 5-6 Visits Per Week: 5-6 Minutes/Day (M-F): 15-30 Minutes/Day (Sat/Siddiqui): 15-30 Pt/Family Agrees w/Plan: Yes Safety Risks/Education Patient Education: Gait Training, Transfer Techniques, Safety Issues Teaching Recipient: Patient Teaching Methods: Demonstration, Discussion Response to Teaching: Reinforcement Needed Discharge Recommendations Plan Patient will perform bed mobility and transfer training, balance and endurance training, functional strengthening, stair training, gait training, education, to improve functional mobility and independence at home. Time/GCodes Time In: 945 Time Out: 1005 Total Billed Treatment Time: 20 Total Billed Treatment 1 visit EVL 20 min ROSA M HORN PT Apr 09, 2016 10:09
[2016-04-09 11:40] VITALS: BP 109/49
--- NOTE | 2016-04-09 12:54 | Progress Note (SOAP) ---
Subjective Subjective/Events-last exam Fwup UTI, pneumonia, Acute Combined Systolic/Diastolic CHF, weakness with fall , Diabetes mellitus II, Hypertension. Still very weak. Objective Exam Vital Signs Date Time Temp Pulse Resp B/P Pulse Ox O2 Delivery O2 Flow Rate FiO2 04/09/16 11:40 97.5 60 18 109/49 96 Room Air 04/09/16 09:00 93 Room Air 04/09/16 08:00 96.2 60 20 117/41 97 Room Air 04/09/16 07:05 59 04/09/16 06:46 92 04/09/16 03:56 97.4 60 20 132/63 93 Room Air 04/09/16 01:00 59 04/08/16 23:45 92 04/08/16 23:39 97.6 60 20 118/57 92 Room Air 04/08/16 20:45 Room Air 04/08/16 20:04 98.8 60 20 148/67 96 Room Air 04/08/16 19:00 59 04/08/16 15:35 96.4 60 20 122/56 95 Room Air 04/08/16 13:09 90 04/08/16 13:00 59 I & O 04/09/16 06:59 Intake Total 1390 ml Output Total 625 ml Balance 765 ml Capillary Refill : Less Than 3 Seconds General Appearance: Mild Distress Neck: Supple Respiratory: Lungs Clear Cardiovascular: Regular Rate, Rhythm Systolic Murmur Gallop/S3 Gastrointestinal: normal bowel sounds non tender soft Extremity: Non Tender No Calf Tenderness No Pedal Edema Neurologic/Psychiatric: Alert Oriented x3 Results Lab Laboratory Tests 04/08/16 16:14: Glucometer 209H 04/08/16 21:03: Glucometer 200H 04/09/16 05:00: Alanine Aminotransferase (ALT/SGPT) 39, Albumin 3.0L, Alkaline Phosphatase 67, Anion Gap 9, Aspartate Amino Transf (AST/SGOT) 24, BUN/Creatinine Ratio 37, Basophils # (Auto) 0.0, Basophils (%) (Auto) 0, Blood Urea Nitrogen 38H, Calcium Level 8.3L, Carbon Dioxide Level 23, Chloride Level 108H, Creatinine 1.03, Eosinophils # (Auto) 0.1, Eosinophils (%) (Auto) 2, Estimat Glomerular Filtration Rate > 60, Glucose Level 190H, Hematocrit 33L, Hemoglobin 10.6L, Lymphocytes # (Auto) 0.8L, Lymphocytes (%) (Auto) 11L, Magnesium Level 1.6L, Mean Corpuscular Hemoglobin 28, Mean Corpuscular Hemoglobin Concent 32, Mean Corpuscular Volume 87, Mean Platelet Volume 10.2, Monocytes # (Auto) 0.8, Monocytes (%) (Auto) 10, Neutrophils # (Auto) 6.0, Neutrophils (%) (Auto) 78H, Platelet Count 210, Potassium Level 3.7, Red Blood Count 3.83L, Red Cell Distribution Width 15.6H, Sodium Level 140, Total Bilirubin 1.0, Total Protein 4.8L, White Blood Count 7.8 04/09/16 10:57: Glucometer 284H Microbiology 04/07/16 Urine Culture - Final, Complete NO GROWTH Assessment/Plan Assessment/Plan Assess & Plan/Chief Complaint 1. Acute Pneumonia--on cefepime and Levaquin, repeat CXR 2. UTI--on Levaquin but culture negative 3. Acute Combined Systolic and Diastolic CHF--on oral lasix 4. Weakness with falls--start PT, will likely need SWING 5. Diabetes mellitus II--home meds restarted and on accuchecks with SSI 6. Hypertension--back on home meds but BP low this AM so will hold lisinopril Diagnosis/Problems: Clinical Quality Measures DVT/VTE Risk/Contraindication: Risk Factor Score Per Nursin RFS Level Per Nursing on Admit: 4+=Very High GLADYS ORONA DO Apr 09, 2016 12:54 pm
[2016-04-09 16:05] VITALS: BP 112/53
[2016-04-09] MEDS: CEFEPIME 2 GM/NS 50 ML IVPB IV SCH ×2 (16:39)
[2016-04-09] MEDS: LEVOFLOXACIN 750 MG/D5W 150 ML PRE-MIX IV SCH (18:13)
[2016-04-09 19:40] VITALS: BP 115/47
[2016-04-09] MEDS: ALFUZOSIN HCL 10 MG TAB (UROXATRAL) PO SCH (20:33)
[2016-04-09] MEDS: SIMvastatin 40 MG (ZOCOR) TAB PO SCH (20:33)
[2016-04-09] MEDS: lisINopril 20 MG (ZESTRIL) TAB PO SCH (20:33)
[2016-04-10] VITALS (7 sets, daily range): BP systolic 110–163; BP diastolic 54–62
[2016-04-10] MEDS: inSUlin (REGULAR) HUMAN 1 UNIT/0.01 ML (CHARGE PER UNIT) SC SCH ×4 (06:00→20:14)
[2016-04-10] MEDS: CATHETER FLUSH 10 ML SYR IV SCH ×3 (06:11→21:41)
[2016-04-10] MEDS: KCL 20 MEQ TAB (K-DUR) PO SCH (06:11)
[2016-04-10] MEDS: RT-ALBUTEROL/IPRATROPIUM 3 ML (DUONEB) VIAL INH SCH ×3 (07:02→22:35)
[2016-04-10] MEDS: PIOGLITAZONE 30MG (ACTOS) TAB PO SCH (09:00)
[2016-04-10] MEDS: FUROSEMIDE 40 MG (LASIX) TAB PO SCH (09:00)
[2016-04-10] MEDS: sitaGLIPtin 50 MG (JANUVIA) TAB PO SCH (09:00)
[2016-04-10] MEDS: ASPIRIN E.C. 81 MG (ECOTRIN) TAB PO SCH (09:00)
[2016-04-10] MEDS: APIXABAN 5 MG (ELIQUIS) TABLET PO SCH ×2 (09:00→20:14)
[2016-04-10] MEDS: FINASTERIDE (PROSCAR) 5 MG TAB PO SCH (09:00)
[2016-04-10] MEDS: MENTHOL/ZINC OXIDE (CALMOSEPTINE) 113 GM TUBE TOP SCH ×2 (09:03→20:14)
--- NOTE | 2016-04-10 10:08 | Progress Note-Cardiology ---
Cardiology SOAP Progress Note Subjective: No new c/o. Continues to feel weak. No c/o CP, palpitations, syncope or near syncope. Objective: I&O/Vital Signs Vital Sign - Last 12Hours 04/10/16 04/10/16 04/10/16 04/10/16 01:00 04:00 07:00 07:03 Temp 98.3 Pulse 60 60 59 Resp 18 B/P 152/62 Pulse Ox 95 94 O2 Delivery Room Air 04/10/16 08:00 Temp 97.0 Pulse 59 Resp 18 B/P 130/58 Pulse Ox 97 O2 Delivery Room Air Intake and Output 04/10/16 00:00 Intake Total 1380 ml Output Total 300 ml Balance 1080 ml Weight (Pounds): 162 Weight (Ounces): 0.0 Weight (Calculated Kilograms): 73.588955 Constitutional: appears stated ageNo apparent distress, well-developed well- nourished Respiratory: No accessory muscle use, No respiratory distress, lungs clear to auscultation Cardiovascular: irregularly irregularNo JVD, S1 and S2 Gastrointestional: No tender, soft roundNo spleenomegaly Extremities: No clubbing, No cyanosis, No significant edema Neurologic/Psychiatric: alert oriented x 3 power is 5/5 both on sides Skin: No rash, No ulcerations Results/Procedures: Labs Laboratory Tests 04/09/16 16:09: Glucometer 231H 04/09/16 20:42: Glucometer 241H 04/10/16 05:50: Glucometer 188H 04/10/16 11:16: Glucometer 349H Microbiology 04/07/16 Blood Culture - Preliminary, Resulted No growth 04/07/16 Urine Culture - Final, Complete NO GROWTH A/P: Assessment: UTI - medical services managing Pneumonia - medical services managing Non-syncopal fall with generalized weakness PAF, as documented on pacemaker interrogation of 02/27/16, currently in a-fib per EKG/tele- rate controlled H/O Syncope due to intermittent advanced AV block, corrected with dual-chamber pacemaker implantation on 06/02/2010. The pacemaker is working normally per interrogation carried out on 02/27/16 Vertebrobasilar insufficiency, which has been followed by his Neurologist, Dr. Aguirre. H/O possible postural hypotension due to the patient's medication. This seemed to have resolved following adjustment of beta kvng and NADEGE inhibitor therapy. Biventricular systolic function is normal with an estimated left ventricular ejection fraction 65%. 2-D viewing does suggest underlying significant diastolic left ventricular dysfunction. Mild biatrial chamber dilatation is present. Tricuspid insufficiency is present. On this technically difficult study severity is difficult to surmise. RV systolic pressure is moderately elevated, estimated at 45 to 50 mmHg. The inferior vena cava was dilated and collapsed less than 50% on inspiration, indicative of increased right atrial pressure. Per echocardiogram of 04-08-[address] Blue Coronary artery disease primary consisting of a chronically occluded and collateralized right coronary artery and moderate mid-vessel disease of the left anterior descending artery, unchanged on his most recent cardiac catheterization of 09/20/2008. MPI of January 2015 showed no evidence of significant myocardial ischemia or infarction. Inferior/diaphragmatic wall perfusion is fixed and appears to be due diaphragmatic attenuation. Normal regional wall motion. LVEF 73% Aorta u/s showed no aneurysm involving the mid or distal abdominal aorta on ([facility], [place], [place]) Symptoms of intermittent hematuria. This has been diagnosed to be prostate hypertrophy and is being followed by his urologist, Dr Daniel Hypertension, controlled. Hyperlipidemia being treated with simvastatin, being followed by Dr Clemente. Maturity onset diabetes mellitus. Tobaccoism from which he has been advised to refrain. Moderate right internal carotid arterial disease with a diameter stenosis of approximately 40%. Moderate disease of the left common carotid with a diameter stenosis of approximately 49%. Mild left internal carotid artery disease with a diameter stenosis of 1-40% per carotid ultrasound of 07-30-2012. U/S from 08-11 showed mild to mod mixed bilat plaque involving both common and internal carotid arteries, without evidence of hemodynamic significance Chronic right bundle branch block. History of pulmonary nodule, which has previously been followed by Dr. Giang at [facility], we have referred him to Dr. Mulligan. This has been followed by Dr Mulligan and Dr Clemente Chronic exertional dyspnea, clinically stable. Bilateral leg claudication which currently appears well controlled. History of right common angioplasty and right common iliac artery stenting with a 9 x 25 mm iliac artery stent followed by femoral-femoral crossover bypass grafting with a 7 mm straight EPTFE graft by Dr. Giang in March 2006. A Doppler study of February 2011 indicated bilateral aorto-femoral bypass grafting with patency of the visualized distal aspect of the graft at femoral anastomosis. There was considerable distal disease reported. He does report chronic 1-2 block leg claudication symptoms, but this unchanged Plan: Non-syncopal fall with increasing generalized weakness - improving UTI being managed by medical services. Pneumonia being managed by medical services BP meds held last evening d/t BP of 110 systolic - we will reduce Lisinopril to 10mg daily Monitor v/s adjust medications as indicated Replace magnesium Monitor lab Physician Assessment Physician Assessment Lungs: good bilat air entry Cor: irreg (rate controlled) A&P * As documented in our note above CRIS MCKEON Apr 10, 2016 10:08 VELASQUEZ HANNON MD FACP FAC CCDS Apr 10, 2016 12:54
[2016-04-10] MEDS ORDERED: MAGNESIUM 1 GM/100 ML IVPB 100 ML IV NR (10:21)
--- NOTE | 2016-04-10 10:25 | Physical Therapy Daily Note ---
PT Daily Note-Current Subjective Patient is up in recliner and agrees to PT. Pain Location: No Pain Reported Mental Status Patient Orientation: Normal For Age Transfers Functional [place] Measure 0=Not Assessed/NA 4=Minimal Assistance 1=Total Assistance 5=Supervision or Setup 2=Maximal Assistance 6=Modified [place] 3=Moderate Assistance 7=Complete IndependenceIRFPAI Quality Coding Scale 6 Independent with activity with or without an assistive device 5 Patient requires set up or clean up by helper. Patient completes activity by themselves 4 Supervision or touching assist (CGA). [place] provide cues , steadying assist 3 The helper provides less than half the effort to complete the activity 2 The helper provides more than half the effort to complete the activity 1 Dependent. The helper does all the effort to complete an activity 7 Patient refused to complete or attempt activity 9 The patient did not perform the activity before the current illness or injury 88 Not attempted due to Medical conditions or safety concerns Transfers (B, C, W/C) (FIM): 4 Scootin Sit to/from Stand: 4 Patient is demonstrating right lean with all mobility. Gait Training Gait (FIM): 4 Distance (FIM): 3=150 ft Distance: 300' x 1; 150' x 1 Gait Level of Assist: 4 Gait Persons Needed: 1 Gait Assistive Device: FWW noted decrease proprioception with gait training with FWW. Patient has slight lean to right with self correction. Patient states he ambulates better with his walking shoes on. Exercises Seated Therapy Exercises: Ankle pumps, Long arc quads, Hip flexion Seated Reps: 15 Assessment Patient tolerated treatment and remains up in recliner with needs met. PT educated patient on safety concerns with balance, however, patient is adamant he will return to home from this hospital stay. PT Group Home Goals Sugar Sampler Goals PT Group Home Goals Time Frame: Apr 16, 2016 Transfers (B,C,W/C) (FIM): 5 Gait (FIM): 4 Distance: 200' Gait Level of Assist: 4 (CGA) Gait Assistive Device: FWW PT Plan Treatment/Plan Treatment Plan: Continue Plan of Care Treatment Plan: Bed Mobility, Education, Functional Activity Kevan, Functional Strength, Gait, Safety, Therapeutic Exercise, Transfers Treatment Duration: Apr 16, 2016 Visits Per Week: 5-6 Minutes/Day (M-F): 15-30 Minutes/Day (Sat/Siddiqui): 15-30 Safety Risks/Education Patient Education: Gait Training, Safety Issues Teaching Recipient: Patient Teaching Methods: Demonstration, Discussion Response to Teaching: Verbalize Understanding, Return Demonstration Discharge Recommendations Therapy D/C Recommendations: Physical Therapy Home Care, Jail (TCU/ NH) Time/GCodes Time In: 931 Time Out: 954 Total Billed Treatment Time: 23 Total Billed Treatment 1 visit GT 15 min EX 8 min SRI ABDI PT Apr 10, 2016 10:24
[2016-04-10] MEDS ORDERED: LEVOFLOXACIN 750 MG TAB (LEVAQUIN) PO SCH (11:00)
[2016-04-10] MEDS ORDERED: lisINopril 10 MG (PRINIVIL) TAB PO NR (11:26)
[2016-04-10] MEDS: CEFEPIME 2 GM/NS 50 ML IVPB IV SCH ×2 (16:51)
--- NOTE | 2016-04-10 19:56 | Progress Note (SOAP) ---
Subjective Subjective/Events-last exam Fwup UTI, pneumonia, Acute Combined Systolic/Diastolic CHF, weakness with fall , Diabetes mellitus II, Hypertension. Still weak. Objective Exam Vital Signs Date Time Temp Pulse Resp B/P Pulse Ox O2 Delivery O2 Flow Rate FiO2 04/10/16 17:00 97.0 60 20 163/62 97 Room Air 04/10/16 13:27 96 04/10/16 13:00 59 04/10/16 12:00 96.1 58 20 119/54 100 Room Air 04/10/16 09:00 Room Air 04/10/16 08:00 97.0 59 18 130/58 97 Room Air 04/10/16 07:03 94 04/10/16 07:00 59 04/10/16 04:00 98.3 60 18 152/62 95 Room Air 04/10/16 01:00 60 04/10/16 00:00 96.8 60 18 110/55 96 Room Air 04/09/16 22:01 92 04/09/16 20:34 Room Air I & O 04/10/16 07:00 Intake Total 1430 ml Output Total 750 ml Balance 680 ml Capillary Refill : Less Than 3 Seconds General Appearance: No Apparent Distress Neck: Supple Respiratory: Lungs Clear Cardiovascular: Regular Rate, Rhythm Systolic Murmur Gallop/S3 Gastrointestinal: normal bowel sounds non tender soft Extremity: Non Tender No Calf Tenderness No Pedal Edema Results Lab Laboratory Tests 04/09/16 20:42: Glucometer 241H 04/10/16 05:50: Glucometer 188H 04/10/16 11:16: Glucometer 349H 04/10/16 16:35: Glucometer 179H Microbiology 04/07/16 Blood Culture - Preliminary, Resulted No growth 04/07/16 Urine Culture - Final, Complete NO GROWTH Assessment/Plan Assessment/Plan Assess & Plan/Chief Complaint 1. Acute Pneumonia--on cefepime and Levaquin, repeat CXR shows improvement 2. UTI--on Levaquin but culture negative 3. Acute Combined Systolic and Diastolic CHF--on oral lasix 4. Weakness with falls--start PT, will likely need SWING or rehab 5. Diabetes mellitus II--home meds restarted and on accuchecks with SSI 6. Hypertension--back on home meds--had to be held last night due to low BP Diagnosis/Problems: Clinical Quality Measures DVT/VTE Risk/Contraindication: Risk Factor Score Per Nursin RFS Level Per Nursing on Admit: 4+=Very High GLADYS ORONA DO Apr 10, 2016 7:56 pm
[2016-04-10] MEDS: ALFUZOSIN HCL 10 MG TAB (UROXATRAL) PO SCH (20:14)
[2016-04-10] MEDS: SIMvastatin 40 MG (ZOCOR) TAB PO SCH (20:14)
[2016-04-10] MEDS: ACETAMINOPHEN 325 MG TABLET/CAPLET (TYLENOL) PO PRN (20:16)
[2016-04-11] VITALS: BP 107/65
[2016-04-11 04:00] VITALS: BP 110/64
[2016-04-11] MEDS: KCL 20 MEQ TAB (K-DUR) PO SCH (06:03)
[2016-04-11] MEDS: CATHETER FLUSH 10 ML SYR IV SCH (06:04)
[2016-04-11] MEDS: inSUlin (REGULAR) HUMAN 1 UNIT/0.01 ML (CHARGE PER UNIT) SC SCH ×2 (06:26→11:50)
[2016-04-11] MEDS: RT-ALBUTEROL/IPRATROPIUM 3 ML (DUONEB) VIAL INH SCH (06:52)
[2016-04-11 07:14] LABS: CALCIUM 8.8 MG/DL (8.5-10.1); CREATININE SERUM 1.23 MG/DL (0.60-1.30); MAGNESIUM 1.9 MG/DL (1.8-2.4); POTASSIUM 4.6 MMOL/L (3.6-5.0)
[2016-04-11 08:15] VITALS: BP 121/69
[2016-04-11] MEDS: ASPIRIN E.C. 81 MG (ECOTRIN) TAB PO SCH (08:45)
[2016-04-11] MEDS: sitaGLIPtin 50 MG (JANUVIA) TAB PO SCH (08:45)
[2016-04-11] MEDS: FINASTERIDE (PROSCAR) 5 MG TAB PO SCH (08:45)
[2016-04-11] MEDS: PIOGLITAZONE 30MG (ACTOS) TAB PO SCH (08:45)
[2016-04-11] MEDS: APIXABAN 5 MG (ELIQUIS) TABLET PO SCH (08:45)
[2016-04-11] MEDS: FUROSEMIDE 40 MG (LASIX) TAB PO SCH (08:45)
[2016-04-11] MEDS: ACETAMINOPHEN 325 MG TABLET/CAPLET (TYLENOL) PO PRN (08:46)
[2016-04-11] MEDS ORDERED: lisINopril 10 MG (PRINIVIL) TAB PO SCH (09:00)
[2016-04-11] MEDS: MENTHOL/ZINC OXIDE (CALMOSEPTINE) 113 GM TUBE TOP SCH (10:02)
[2016-04-11] MEDS ORDERED: LEVOFLOXACIN 750 MG TAB (LEVAQUIN) PO SCH (11:00)
--- NOTE | 2016-04-11 12:37 | Progress Note-Cardiology ---
Cardiology SOAP Progress Note Subjective: Notes a little better strength level Denies cp or palp or syncope Objective: I&O/Vital Signs Vital Sign - Last 12Hours 04/11/16 04/11/16 04/11/16 04/11/16 01:03 04:00 06:52 07:10 Temp 97.8 Pulse 59 60 60 Resp 20 B/P 110/64 Pulse Ox 94 94 O2 Delivery Room Air 04/11/16 08:15 Temp 96.0 Pulse 60 Resp 24 B/P 121/69 Pulse Ox 96 O2 Delivery Room Air Intake and Output 04/11/16 00:00 Intake Total 950 ml Output Total 600 ml Balance 350 ml Weight (Pounds): 162 Weight (Ounces): 0.0 Weight (Calculated Kilograms): 73.039759 Constitutional: appears stated ageNo apparent distress, well-developed well- nourished Respiratory: No accessory muscle use, No respiratory distress, other ( diminished bs at bases, more on the R) Cardiovascular: irregularly irregularNo JVD, S1 and S2 Gastrointestional: No tender, soft roundNo spleenomegaly Extremities: No clubbing, No cyanosis, No significant edema Neurologic/Psychiatric: alert oriented x 3 power is 5/5 both on sides Skin: No rash, No ulcerations Results/Procedures: Labs Laboratory Tests 04/10/16 16:35: Glucometer 179H 04/10/16 20:07: Glucometer 218H 04/11/16 06:20: Glucometer 205H 04/11/16 06:21: Anion Gap 9, BUN/Creatinine Ratio 36, Blood Urea Nitrogen 44H, Calcium Level 8.8 , Carbon Dioxide Level 23, Chloride Level 103, Creatinine 1.23, Estimat Glomerular Filtration Rate 57, Glucose Level 220H, Magnesium Level 1.9, Potassium Level 4.6, Sodium Level 135 04/11/16 11:39: Glucometer 207H Microbiology 04/07/16 Blood Culture - Preliminary, Resulted No growth 04/07/16 Urine Culture - Final, Complete NO GROWTH Laboratory Tests 04/11/16 06:21 A/P: Assessment: UTI - medical services managing Pneumonia - medical services managing Non-syncopal fall with generalized weakness PAF, as documented on pacemaker interrogation of 02/27/16, currently in a-fib per EKG/tele- rate controlled 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 The pacemaker is working normally per interrogation carried out on 02/27/16 Vertebrobasilar insufficiency, which has been followed by his Neurologist, Dr. Aguirre. H/O possible postural hypotension due to the patient's medication. This seemed to have resolved following adjustment of beta kvng and NADEGE inhibitor therapy. Echo of 04/08/[address] Blue: Biventricular systolic function is normal with an estimated left ventricular ejection fraction 65%. 2-D viewing does suggest underlying significant diastolic left ventricular dysfunction. Mild biatrial chamber dilatation is present. Tricuspid insufficiency is present. On this technically difficult study severity is difficult to surmise. RV systolic pressure is moderately elevated, estimated at 45 to 50 mmHg. The inferior vena cava was dilated and collapsed less than 50% on inspiration, indicative of increased right atrial pressure. Coronary artery disease primary consisting of a chronically occluded and collateralized right coronary artery and moderate mid-vessel disease of the left anterior descending artery, unchanged on his most recent cardiac catheterization of 09/20/2008. MPI of January 2015 showed no evidence of significant myocardial ischemia or infarction. Inferior/diaphragmatic wall perfusion is fixed and appears to be due diaphragmatic attenuation. Normal regional wall motion. LVEF 73% Aorta u/s showed no aneurysm involving the mid or distal abdominal aorta on ([facility], [place], [place]) Symptoms of intermittent hematuria. This has been diagnosed to be prostate hypertrophy and is being followed by his urologist, Dr Daniel Hypertension, controlled. Hyperlipidemia being treated with simvastatin, being followed by Dr Clemente. Maturity onset diabetes mellitus. Tobaccoism from which he has been advised to refrain. Moderate right internal carotid arterial disease with a diameter stenosis of approximately 40%. Moderate disease of the left common carotid with a diameter stenosis of approximately 49%. Mild left internal carotid artery disease with a diameter stenosis of 1-40% per carotid ultrasound of 07-30-2012. U/S from 08-11 showed mild to mod mixed bilat plaque involving both common and internal carotid arteries, without evidence of hemodynamic significance Chronic right bundle branch block. History of pulmonary nodule, which has previously been followed by Dr. Giang at [facility], we have referred him to Dr. Mulligan. This has been followed by Dr Mulligan and Dr Clemente Chronic exertional dyspnea, clinically stable. Bilateral leg claudication which currently appears well controlled. History of right common angioplasty and right common iliac artery stenting with a 9 x 25 mm iliac artery stent followed by femoral-femoral crossover bypass grafting with a 7 mm straight EPTFE graft by Dr. Giang in March 2006. A Doppler study of February 2011 indicated bilateral aorto-femoral bypass grafting with patency of the visualized distal aspect of the graft at femoral anastomosis. There was considerable distal disease reported. He does report chronic 1-2 block leg claudication symptoms, but this unchanged Plan: Slow clinical improvement Monitor labs VELASQUEZ HANNON MD [facility] Apr 11, 2016 12:37 Replace magnesium Monitor lab VELASQUEZ HANNON MD [facility] Apr 11, 2016 12:37
--- NOTE | 2016-04-30 13:07 | Discharge Summary ---
Diagnosis/Chief Complaint Date of Admission Apr 07, 2016 at 15:13 Date of Discharge Apr 11, 2016 at 12:49 Discharge Date: Apr 11, 2016 Admission Diagnosis Admission Diagnosis 1. Acute UTI--admit and start Rocephin 2. Fall--likely due to UTI 3. Weakness--treat UTI and restart home meds 4. Pulmonary Edema--Acute Combined Diastolic and Systolic CHF--lasix and update ECHO 5. Diabetes mellitus II--start SSI 6. Hypertension--resume home medications 7. History of CAD and PAD--consult cardiology Discharge Diagnosis 1. Acute UTI--improved 2. Fall--due to weakness 3. Weakness--improved 4. Pulmonary Edema--Acute Combined Diastolic and Systolic CHF 5. Diabetes mellitus II 6. Hypertension 7. History of CAD and PAD 8. Pneumonia--improved, atelectesis in right lower lobe 9. COPD--stable 10. Chronic Atrial Fibrillation 11. BPH with urinary retention Reason Hospital Visit This is a 76 year old male who was brought to the emergency room after a fall. According to the patient he has not been feeling well the past week and fell yesterday at some point. He was finally able to make it to a phone today to call his brother. He was brought to the emergency room by EMS where he was found to have an acute UTI with pulmonary edema. He was very weak with some confusion as well. CT scan of the head showed no evidence of acute stroke. He will be admitted and started on rocephin and urine cultured. He was given lasix in the emergency room. Discharge Summary Hospital Course Hospital Course This is a 76 year old male who was brought to the emergency room after a fall. According to the patient he had not been feeling well the week prior to his admission and fell the day prior to his admission at some point. He was finally able to make it to a phone on the day of admission to call his brother. He was brought to the emergency room by EMS where he was found to have an acute UTI with pulmonary edema. He was very weak with some confusion as well. CT scan of the head showed no evidence of acute stroke. He was admitted and started on rocephin and urine cultured. He was given lasix in the emergency room. After further review of his CXR, he was treated for a right lower lobe pneumonia as well. His urine culture was negative but he was having ongoing urinary frequency and incontinence so Dr. Daniel was consulted and felt he was having urinary retention due to his BPH. He did discuss possible prostate procedures with the patient but at this time the patient does not wish to pursue any of these options. He was started on PT and OT and his strength improved. He was continued on lasix and his pulmonary edema improved. Cardiology was consulted and they did adjust some of his medications during his hospital stay. It was decided her would need longer time for antibiotics and strengthening so he was transferred to SWING bed. Procedures None. Consultations Dr. Floyd Daniel Discharge Physical Examination Allergies: Coded Allergies: No Known Drug Allergies (Unverified , 06/02/10) General Appearance: Alert, Oriented X3, Cooperative, No Acute Distress Respiratory: Clear to Auscultation Cardiovascular: Other (irregular) Abdominal: Normal Bowel Sounds, Soft, No Tenderness Extremities: No Clubbing, No Cyanosis, No Edema Neuro: Other (using walker) Psych/Mental Status: Mental Status NL, Mood NL Discharge Home Medications Reviewed and agree with Discharge Medication list on patient's Discharge Instruction sheet Instructions to Patient/Family Please see electonic discharge instructions given to patient. Clinical Quality Measures DVT/VTE Risk/Contraindication: Risk Factor Score Per Nursin RFS Level Per Nursing on Admit: 4+=Very High GLADYS ORONA DO Apr 30, 2016 13:07
== END 2016-04-11 12:49 | disposition swing bed (61) | DRG 193 ==
LOC: EDUNIT# 11:23 → ER 11:25 → 4TH 15:13
PROVIDERS: ADMIT Family Medicine; ATTEND Family Medicine
DX: J18.9 Pneumonia, unspecified organism (principal); N39.0 Urinary tract infection, site not specified; I11.0 Hypertensive heart disease with heart failure; I50.41 Acute combined systolic (congestive) and diastolic (congestive) heart failure; I48.0 Paroxysmal atrial fibrillation; E11.51 Type 2 diabetes mellitus with diabetic peripheral angiopathy without gangrene; I25.10 Atherosclerotic heart disease of native coronary artery without angina pectoris; N40.1 Benign prostatic hyperplasia with lower urinary tract symptoms; R31.9 Hematuria, unspecified; E78.5 Hyperlipidemia, unspecified; F17.210 Nicotine dependence, cigarettes, uncomplicated; I70.213 Atherosclerosis of native arteries of extremities with intermittent claudication, bilateral legs; R53.1 Weakness; Z95.0 Presence of cardiac pacemaker; Z95.820 Peripheral vascular angioplasty status with implants and grafts; Z91.81 History of falling
CPT/HCPCS: 36415; 70450; 71010; 71020; 72125; 72170; 80048; 80053; 81000; 82550; 82962; 83605; 83735; 83874; 83880; 84484; 85007; 85025; 85027; 85610; 87040; 87088; 93005; 93306; 94640; 94664; 94760; 96365; 96367

== ENCOUNTER 2016-04-11 12:49 | Inpatient (IN) | payer MEDICARE, OTHER ==
[~2016-04-11] VITALS: Ht 162.6 cm; Wt 74.8 kg
[~2016-04-11 12:49] MED LIST changes: +APIX5TAB PO; +FINA5TAB6 PO; +FURO40TA4 PO; +GLIM2TAB PO; +LISI-552 PO; +PIOG30TA26 PO; +POTA10TA36 PO; +RIVA20TA PO; +SIMV40TA4 PO; +SITA100T12 PO; +TAMS0.4C2 PO
[2016-04-11] MEDS ORDERED: CEFEPIME INJECTION 2,000 MG in NORMAL SALINE (BAXTER MINI) 50 ML IV SCH (13:00)
[2016-04-11] MEDS ORDERED: LEVOFLOXACIN 750 MG TAB (LEVAQUIN) PO SCH (13:00)
--- OUTSIDE RECORDS SUMMARY | 2016-04-11 13:08 | XMS REPORT | Continuity of Care Document ---
Author Author [facility] Organization [facility] Address Unknown Phone Unavailable Care Team Providers Care Service Line Bus Cleaner Name Role Phone GLADYS ORONA DO PCP Insurance Providers Payer Name Policy Number Subscriber Name Relationship s Medicare [id number] Jn Lee 18 Self / Same As Patient Advance Directives Directive Response Recorded Date/Time Advance Directives No 04/07/16 5:31pm Organ Donor No 04/07/16 5:31pm Resuscitation Status Full Code 04/07/16 5:31pm Chief Complaint and Reason for Visit Chief Complaint URINARY TRACT INFECTION,GENERALIZED WEAKNESS,CHF Reason for Visit Fall at home General weakness Urinary tract infection Problems Active Problems Medical Problem Onset Date Status Fall at home Unknown Acute General weakness Unknown Acute Urinary tract infection Unknown Acute Medications Current Home Medications Medication Dose Units Route Directions Days/Qty Instructions Start Date Metoprolol Succinate 25 Mg 25 Mg Oral Bedtime LAST FILLED #30 12-5-16 06/02/10 Aspirin 81 Mg 81 Mg Oral Daily 06/02/10 Pioglitazone Hcl 30 Mg 30 Mg Oral Daily 04/08/16 Simvastatin 40 Mg 40 Mg Oral Bedtime 04/08/16 Finasteride 5 Mg 5 Mg Oral Daily 04/08/16 Tamsulosin Hcl 0.4 Mg 0.4 Mg Oral Bedtime 04/08/16 Sitagliptin Phosphate 100 Mg 100 Mg Oral Daily 04/08/16 Apixaban 5 Mg 5 Mg Oral Twice A Day 04/08/16 Glimepiride 2 Mg 4 Mg Oral Daily TAKES 2 (2MG) TABLETS 04/08/16 Glimepiride 2 Mg 2 Mg Oral Bedtime 04/08/16 Furosemide 40 Mg 40 Mg Oral Every 48 Hours as needed for Swelling Potassium Chloride 10 Meq 10 Meq Oral Every 48 Hours as needed for When Taking Furosemide 04/08/16 Lisinopril 20 Mg 20 Mg Oral Bedtime 04/08/16 Past Home Medications Medication Directions Ordered Status [Collin] , ?Mg Daily 06/02/10 Discontinued Quinapril Hcl 10 Mg Tablet, 10 Mg Oral Daily 06/02/10 Discontinued Clopidogrel Bisulfate 75 Mg Tablet, 1 Each Oral Daily 06/02/10 Discontinued Simvastatin 40 Mg Tablet, 40 Mg Oral Daily 06/02/10 Discontinued Fish Oil 1,000 Mg Cap, 1000 Mg Oral Daily 06/02/10 Discontinued Niacin 500 Mg Tablet.sa, 500 Mg Oral Daily 06/02/10 Discontinued Multivitamins 1 Each Capsule, 1 Each Oral Daily 04/30/11 Discontinued Cholecalciferol (Vitamin D3) 2,000 Unit Capsule, 1000 Unit Oral Daily Discontinued Pioglitazone/Glimepiride 1 Each Tablet, 1 Each Oral Daily 05/01/11 Discontinued Rivaroxaban 20 Mg Tablet, 20 Mg Oral Daily 04/08/16 Discontinued Social History Social History Problem Response Recorded Date/Time Alcohol Use Occasionally Uses 04/07/2016 5:33pm Recreational Drug Use No 04/07/2016 5:33pm Recent Foreign Travel No 04/07/2016 5:40pm Recent Infectious Disease Exposure No 04/07/2016 5:40pm Hospitalization with Isolation Denies 04/11/2016 12:49pm Smoking Status Current Everyday Smoker 04/07/2016 5:37pm Type Used Cigarettes 04/07/2016 5:37pm Recent Hopitalizations No 04/07/2016 5:33pm Hospitalization with Isolation Denies 04/11/2016 12:49pm Query Response Start Date Stop Date Smoking Status Current Everyday Smoker Hospital Discharge Instructions No hospital discharge instructions. Plan of Care Discharge Date 04/11/16 12:49pm Disposition 61 MEDICARE SWING BED Instructions/Education Provided Community-Acquired Pneumonia, Adult (DC) Prescriptions See Medication Section Functional Status Query Response Date Recorded Patient Orientation Normal For Age April 10, 2016 10:24am Patient Orientation Person Place Time Situation April 11, 2016 12:49pm Comprehension Ability Understands Concepts April 10, 2016 9:00pm Allergies, Adverse Reactions, Alerts No known allergies. Immunizations Name Given Type FLU TRIvalent 5 years - Adult 04/07/16 Administered Vital Signs Acute Vital Signs Vital Response Date/Time Temperature (Fahrenheit) 96.0 degrees F (97.6 - 99.5) 04/11/2016 8:15am Temperature (Calculated Celsius) 35.22316 degrees C (36.4 - 37.5) 04/11/2016 8:15am Temperature Source Tympanic 04/11/2016 8:15am Pulse Rate (adult) 60 bpm (60 - 90) 04/11/2016 8:15am Respiratory Rate 24 bpm (12 - 24) 04/11/2016 8:15am O2 Sat by Pulse Oximetry 96 % (88 - 100) 04/11/2016 8:15am Blood Pressure 121/69 mm Hg 04/11/2016 8:15am Blood Pressure Mean 86 mm Hg 04/11/2016 8:15am Pain Numeric Pain Scale 4 04/11/2016 9:30am Height (Feet) 5 feet 04/07/2016 5:40pm Height (Inches) 4.00 inches 04/07/2016 5:40pm Height (Calculated Centimeters) 162.500103 cm 04/07/2016 5:40pm Weight (Pounds) 162 pounds 04/07/2016 5:40pm Weight (Ounces) 0.0 oz 04/07/2016 5:40pm Weight (Calculated Grams) 53616.97 gm 04/07/2016 5:40pm Weight (Calculated Kilograms) 73.870500 kilograms 04/07/2016 5:40pm Calculated BMI 27.8 04/07/2016 5:40pm Capillary Refill Capillary Refill Less Than 3 Seconds 04/11/2016 9:00am Results Pending Laboratory Results Test Name Collection Date/Time Pending Microbiology Results Procedure Source Collection Date/Time Procedures Procedure Status Date Provider(s) Tracing only of electrocardiogram Completed 04/07/16 ARIANNA SAUER APRN Color Doppler echocardiography Active 04/08/16 CRIS MCKEON Encounters Encounter Location Arrival/Admit Date Discharge/Depart Date Attending Provider Discharged Inpatient [facility] 04/07/16 3:13pm 12:49pm GLADYS ORONA DO Registered Clinic [facility] 03/25/16 11:12am JESSIE SY MD Recent Diagnosis Fall at home General weakness Urinary tract infection
[2016-04-11] MEDS ORDERED: RT-ALBUTEROL/IPRATROPIUM 3 ML (DUONEB) VIAL INH PRN (13:15)
[2016-04-11] MEDS ORDERED: CATHETER FLUSH 10 ML SYR IV PRN (13:15)
[2016-04-11] MEDS ORDERED: FLU TRIvalent (5 YOA+) 2016-17 (AFLURIA) 0.5 ML IM ONE (13:15)
--- NOTE | 2016-04-11 14:09 | Physical Therapy Evaluation ---
PT Evaluation-General Medical Diagnosis Admission Date Apr 11, 2016 at 12:49 Medical Diagnosis: fall, weakness Onset Date: Apr 07, 2016 Therapy Diagnosis Therapy Diagnosis: impaired mobility, endurance, balance Height/Weight Height (Feet): 5 Height (Inches): 4.00 Weight (Pounds): 162 Weight (Ounces): 0.0 Referral Physician: Cristiane Clemente DO Reason for Referral: Evaluation/Treatment Medical History Pertinent Medical History: Atrial Fib, CAD, DM, HTN, Smoking Additional Medical History pacemaker, PAD Current History fell at home, was able to get to phone to call his brother, brought to ER by ambulance Reviewed History: Yes Social History Home: Single Level Current Living Status: Alone Entry Into Home: Stairs With Railing Prior/Core FIM Prior Level of Function Functional [place] Measure 0=Not Assessed/NA 4=Minimal Assistance 1=Total Assistance 5=Supervision or Setup 2=Maximal Assistance 6=Modified [place] 3=Moderate Assistance 7=Complete [place] Bed Mobility: 7 Transfers (B,C,W/C) (FIM): 7 Gait: 7 PT Evaluation-Current Subjective Patient in bed pre tx, agrees to PT, pleasant and cooperative, no complaints. Pain Numeric Pain Scale: 6 Location: Left Location Body Site: Hip Pt/Family Goals "to get better and go home" Objective Patient Orientation: Person, Place, Situation ROM/Strength ROM Lower Extremities WNL Strenght Lower Extremities gross strength 4+/5 right leg, 5/5 left leg Integumentary/Posture Bowel Incontinence: No Bladder Incontinence: No Neuromuscular (Tone, Coordination, Reflexes) decreased coordination bilateral lower extremities tested with orr slide Sensory Vision: Functional Hearing: Impaired Sensation Right Lower Extremit: Intact Sensation Left Lower Extremity: Intact Transfers Functional [place] Measure 0=Not Assessed/NA 4=Minimal Assistance 1=Total Assistance 5=Supervision or Setup 2=Maximal Assistance 6=Modified [place] 3=Moderate Assistance 7=Complete [place] Transfers (B, C, W/C) (FIM): 4 Scootin Rollin Supine to/from Sit: 5 Sit to/from Stand: 4 Sit to Lying (QC): 4 Lying to Sitting/Side of Bed(Q: 4 Sit to Stand (QC): 4 Patient performs bed mobility with SBA, he just needs extra time. CGA/min assist for transfers, cues for safety and hand placement. Gait Does the Patient Walk?: Yes Mode of Locomotion: Walk Anticipated Mode of Locomotion: Walk Gait (FIM): 4 Distance: 300'x2 Walk 50 ft with 2 Turns(QC): 3 Walk 150 ft (QC): 3 Gait Level of Assist: 4 Gait Persons Needed: 1 Gait Assistive Device: FWW Comments/Gait Description Patient needs min assist to ambulate due to occasional balance assist, can go 10 ' over an uneven surface with min assist and can go at least 50' with at least 2 turns of 90 degrees. Wheelchair Training Does the Pt Use a Wheelchair?: No Balance Sitting Static: Normal Sitting Dynamic: Normal Standing Static: Poor Standing Dynamic: Poor Treatment Exercises in parallel bars x 20 (heel raises, mini-squats, marching) Assessment/Needs Patient has impaired general mobility, decreased endurance, and poor balance. Rehab Potential: Fair PT Intermediate Goals Aromatherapist Goals PT Aromatherapist Goals Time Frame: Apr 18, 2016 Transfers (B,C,W/C) (FIM): 5 Sit to Lying (QC): 6 Lying-Sitting on Side/Bed(QC): 6 Sit to Stand (QC): 4 Rollin Gait (FIM): 4 Distance: 300' Walk 50ft with 2 Turns (QC): 4 Walk 150 ft (QC): 4 Gait Level of Assist: 4 (CGA) Gait Assistive Device: FWW PT Plan Problem List Problem List: Activity Tolerance, Functional Strength, Safety, Balance, Gait, Transfer, Bed Mobility Treatment/Plan Treatment Plan: Continue Plan of Care Treatment Plan: Bed Mobility, Education, Functional Activity Kevan, Functional Strength, Gait, Safety, Therapeutic Exercise, Transfers Treatment Duration: Apr 18, 2016 # of days/week 5-6 Visits Per Week: 5-6 Minutes/Day (M-F): 15-30 Minutes/Day (Sat/Siddiqui): 15-30 Pt/Family Agrees w/Plan: Yes Safety Risks/Education Patient Education: Gait Training, Transfer Techniques, Correct Positioning, Safety Issues Teaching Recipient: Patient Teaching Methods: Demonstration, Discussion Response to Teaching: Reinforcement Needed Discharge Recommendations Plan Patient will perform bed mobility and transfer training, balance and endurance training, functional strengthening, stair training, gait training, education, to improve functional mobility and independence at home. Time/GCodes Time In: 1335 Time Out: 1405 Total Billed Treatment Time: 30 Total Billed Treatment 1 visit EVL15 min GT 15 min ROSA M HORN PT Apr 11, 2016 14:09
[2016-04-11] MEDS: RT-ALBUTEROL/IPRATROPIUM 3 ML (DUONEB) VIAL INH SCH ×3 (15:10→21:49)
--- NOTE | 2016-04-11 15:20 | Occupational Therapy Eval ---
OT Evaluation-General/PLF Medical Diagnosis Admission Date Apr 11, 2016 at 12:49 Medical Diagnosis: fall, weakness Onset Date: Apr 07, 2016 Therapy Diagnosis Therapy Diagnosis: decreased self care skills Height/Weight Height (Feet): 5 Height (Inches): 4.00 Weight (Pounds): 162 Weight (Ounces): 0.0 Referral Physician: Cristiane Clemente DO Medical History Pertinent Medical History: Atrial Fib, CAD, DM, HTN, Smoking Reviewed History: Yes Social History Home: Single Level Current Living Status: Alone Entry Into Home: Stairs With Railing Steps Into Home: 2 ADL-Prior Level of Function ADL PLOF Comments Pt reports being independent with self care and mobility prior to admission. DME/Equipment: Grab Bars, Tub/Shower Drive Self: No OT Current Status Subjective Pt in bed, agrees to therapy. Pt has 4/10 low back and left hip pain. Mental Status/Objective Patient Orientation: Person, Place Current Glasses/Contacts: Yes Hearing Aids: No Dentures/Partials: Yes Hand Dominance: Right Upper Extremity ROM Grossly WFL Upper Extremity Strength Grossly 4/5 ADL-Treatment ADL-Current Pt supine to sit with SBA. Pt participated in UE assessment while seated EOB. Pt demonstrated ability to doff/don socks with increased time. Pt requires CGA for balance during task. Sit to stand with CGA. Gait to restroom with FWW. Pt demonstrated ability to perform toilet transfer with minimal assistance. Return to bed with FWW. Sit to supine with supervision and increased time. Pt in bed with needs met after session. Functional [place] Measure 0=Not Assessed/NA 4=Minimal Assistance 1=Total Assistance 5=Supervision or Setup 2=Maximal Assistance 6=Modified [place] 3=Moderate Assistance 7=Complete IndependenceIRFPAI Quality Coding Scale 6 Independent with activity with or without an assistive device 5 Patient requires set up or clean up by helper. Patient completes activity by themselves 4 Supervision or touching assist (CGA). [place] provide cues , steadying assist 3 The helper provides less than half the effort to complete the activity 2 The helper provides more than half the effort to complete the activity 1 Dependent. The helper does all the effort to complete an activity 7 Patient refused to complete or attempt activity 9 The patient did not perform the activity before the current illness or injury 88 Not attempted due to Medical conditions or safety concerns Eating (FIM): 5 (pt reports assist to open) Lower Body Dressing (FIM): 4 (CGA to doff/don socks) Toilet/Commode Transfer (FIM): 4 Toilet Transfer (QC): 4 Education OT Patient Education: Rehab process Teaching Recipient: Patient Teaching Methods: Discussion Response to Teaching: Verbalize Understanding OT Short Term Goals Short Term Goals 1=Demonstrate adherence to instructed precautions during ADL tasks. 2=Patient will verbalize/demonstrate understanding of assistive devices/ modifications for ADL. 3=Patient will improve strength/tolerance for activity to enable patient to perform ADL's. OT Health Care Law Specialist Goals [facility] Goals Time Frame: Apr 25, 2016 Eating (FIM): 6 Eating (QC): 6 Oral Hygiene (QC): 6 Grooming(FIM): 6 Toileting Hygiene (QC): 5 Bathing(FIM): 5 Upper Body Dressing(FIM): 5 Lower Body Dressing(FIM): 5 Toileting(FIM): 5 Toilet/Commode Transfer(FIM): 5 Toilet/Commode Transfer (QC): 5 Additional Goals: 1-Demonstrate ADL Tasks, 2-Verbalize Understanding, 3- ImproveStrength/[place]ev[place] 1=Demonstrate adherence to instructed precautions during ADL tasks. 2=Patient will verbalize/demonstrate understanding of assistive devices/ modifications for ADL. 3=Patient will improve strength/tolerance for activity to enable patient to perform ADL's. OT Education/Plan Problem List/Assessment Assessment: Decreased Activ Tolerance, Decreased UE Strength, Dependent Transfers, Impaired Self-Care Skills Pt to benefit from skilled OT intervention for ADL training, transfers, strengthening, and home safety education to maximize level of function and allow safe discharge. Discharge Recommendations Plan/Recommendations: Continue POC Treatment Plan/Plan of Care Treatment,Training & Education: Yes Patient would benefit from OT for education, treatment and training to promote independence in ADL's, mobility, safety and/or upper extremity function for ADL' s. Plan of Care: ADL Retraining, Functional Mobility, UE Funct Exercise/Act Treatment Duration: Apr 25, 2016 # of days/week 5 Visits Per Week: 5 Agreement: Yes Rehab Potential: Fair Time/GCodes Start Time: 14:23 Stop Time: 14:46 Total Time Billed (hr/min): 23 Billed Treatment Time 1 visit, EVL(8minutes), ADL(15minutes) JUNG,BETHANY L OT Apr 11, 2016 15:20
[2016-04-11] MEDS: CEFEPIME INJECTION 2,000 MG in NORMAL SALINE (BAXTER MINI) 50 ML IV SCH (15:38)
[2016-04-11] MEDS: CATHETER FLUSH 10 ML SYR IV SCH ×2 (15:39→20:38)
[2016-04-11] MEDS: ACETAMINOPHEN 325 MG TABLET/CAPLET (TYLENOL) PO PRN (15:39)
[2016-04-11] MEDS: inSUlin (REGULAR) HUMAN 1 UNIT/0.01 ML (CHARGE PER UNIT) SC SCH ×2 (16:00→20:37)
[2016-04-11 17:14] VITALS: BP 122/81
[2016-04-11 19:00] VITALS: BP 130/60
[2016-04-11] MEDS: SIMvastatin 40 MG (ZOCOR) TAB PO SCH (20:37)
[2016-04-11] MEDS: ALFUZOSIN HCL 10 MG TAB (UROXATRAL) PO SCH (20:37)
[2016-04-11] MEDS: APIXABAN 5 MG (ELIQUIS) TABLET PO SCH (20:37)
[2016-04-12] VITALS: BP 110/46
[2016-04-12 04:00] VITALS: BP 137/68
[2016-04-12] MEDS: inSUlin (REGULAR) HUMAN 1 UNIT/0.01 ML (CHARGE PER UNIT) SC SCH ×4 (06:00→21:10)
[2016-04-12] MEDS: KCL 20 MEQ TAB (K-DUR) PO SCH (06:08)
[2016-04-12] MEDS: CATHETER FLUSH 10 ML SYR IV SCH ×3 (06:09→21:10)
[2016-04-12] MEDS: RT-ALBUTEROL/IPRATROPIUM 3 ML (DUONEB) VIAL INH SCH ×3 (07:39→21:23)
--- NOTE | 2016-04-12 07:53 | Progress Note (SOAP) ---
Subjective Subjective/Events-last exam patient feeling better today. Patient not in any pain. Objective Exam Vital Signs Date Time Temp Pulse Resp B/P Pulse Ox O2 Delivery O2 Flow Rate FiO2 04/12/16 07:39 93 04/12/16 04:00 98.8 59 20 137/68 98 04/12/16 01:00 59 04/12/16 00:00 96.5 60 18 110/46 96 04/11/16 21:49 94 04/11/16 21:05 95 Room Air 04/11/16 19:00 59 04/11/16 19:00 61 130/60 04/11/16 17:14 96.7 60 19 122/81 99 04/11/16 17:14 96.7 60 19 122/81 99 04/11/16 13:00 60 I & O 04/12/16 07:00 Intake Total 1292 ml Output Total 1000 ml Balance 292 ml Capillary Refill : General Appearance: No Apparent Distress WD/WN HEENT: Normal ENT Inspection Neck: Normal Inspection Respiratory: No Accessory Muscle Use No Respiratory Distress Cardiovascular: Regular Rate, Rhythm Results Lab Laboratory Tests 04/11/16 16:55: Glucometer 150H 04/11/16 20:18: Glucometer 168H 04/12/16 05:36: Glucometer 189H Assessment/Plan Assessment/Plan Assess & Plan/Chief Complaint UTI. Generalized weakness. Congestive heart failure Diagnosis/Problems: VERONICA ESPINAL DO Apr 12, 2016 07:53
[2016-04-12 08:38] VITALS: BP 121/65
[2016-04-12] MEDS: ASPIRIN E.C. 81 MG (ECOTRIN) TAB PO SCH (08:49)
[2016-04-12] MEDS: PIOGLITAZONE 30MG (ACTOS) TAB PO SCH (08:49)
[2016-04-12] MEDS: FUROSEMIDE 40 MG (LASIX) TAB PO SCH (08:49)
[2016-04-12] MEDS: APIXABAN 5 MG (ELIQUIS) TABLET PO SCH ×2 (08:49→21:10)
[2016-04-12] MEDS: FINASTERIDE (PROSCAR) 5 MG TAB PO SCH (08:49)
[2016-04-12] MEDS: sitaGLIPtin 50 MG (JANUVIA) TAB PO SCH (08:50)
[2016-04-12] MEDS: lisINopril 10 MG (PRINIVIL) TAB PO SCH (08:50)
[2016-04-12] MEDS: ACETAMINOPHEN 325 MG TABLET/CAPLET (TYLENOL) PO PRN (08:50)
--- NOTE | 2016-04-12 11:00 | Physical Therapy Daily Note ---
PT Daily Note-Current Subjective Pt agreeable. Pt sitting in chair and requests to wear tennis shoes. Pt denies pain. Mental Status Patient Orientation: Person, Place, Situation Transfers Functional [place] Measure 0=Not Assessed/NA 4=Minimal Assistance 1=Total Assistance 5=Supervision or Setup 2=Maximal Assistance 6=Modified [place] 3=Moderate Assistance 7=Complete IndependenceIRFPAI Quality Coding Scale 6 Independent with activity with or without an assistive device 5 Patient requires set up or clean up by helper. Patient completes activity by themselves 4 Supervision or touching assist (CGA). [place] provide cues , steadying assist 3 The helper provides less than half the effort to complete the activity 2 The helper provides more than half the effort to complete the activity 1 Dependent. The helper does all the effort to complete an activity 7 Patient refused to complete or attempt activity 9 The patient did not perform the activity before the current illness or injury 88 Not attempted due to Medical conditions or safety concerns Sit to stand mod (I). Gait Training Gait Assistive Device: FWW PT amb with FWW and CGA x 300ft. Pt wearing tennis shoes. Good speed, some unsteadiness at times but all self righted. Treatments Pt seen for gait training in hallway and standing therex/balance exercises. Pt performed standing heel/toe raise x 10, standing march with light touch for support on FWW x 10, alternating hip ext x 10, ham curl x 10, minin squat x 10. Pt resting between bouts as needed. Practiced single leg stance 10x each leg using FWW for support as needed. Assessment Current Status: Good Progress Pt in chair with call light and all needs met post therapy. Nurse present. Pt rubi well with good performance. Balance unsteady at times but overall improved per pt. Recommend FWW for home use as needed. Pt reports he does not have FWW. PT Halfway Goals Oil Recovery Operator Goals PT Halfway Goals Time Frame: Apr 18, 2016 Transfers (B,C,W/C) (FIM): 5 Sit to Lying (QC): 6 Lying-Sitting on Side/Bed(QC): 6 Sit to Stand (QC): 4 Rollin Gait (FIM): 4 Distance: 300' Walk 50ft with 2 Turns (QC): 4 Walk 150 ft (QC): 4 Gait Level of Assist: 4 (CGA) Gait Assistive Device: FWW PT Plan Treatment/Plan Treatment Plan: Continue Plan of Care Treatment Plan: Bed Mobility, Education, Functional Activity [place]ev[place], Functional Strength, Gait, Safety, Therapeutic Exercise, Transfers Treatment Duration: Apr 18, 2016 Visits Per Week: 5-6 Minutes/Day (M-F): 15-30 Minutes/Day (Sat/Siddiqui): 15-30 Time/GCodes Time In: 825 Time Out: 850 Total Billed Treatment Time: 25 Total Billed Treatment 1, gait 10min, ther ex 15min MARIO SOTO CPTA Apr 12, 2016 11:00
[2016-04-12 12:00] VITALS: BP 105/60
--- NOTE | 2016-04-12 13:54 | Progress Note-Cardiology ---
Cardiology SOAP Progress Note Subjective: Notes slow improvement of gen malaise and weakness. Denies cp or palp or syncope Objective: I&O/Vital Signs Vital Sign - Last 12Hours 04/12/16 04/12/16 04/12/16 04/12/16 04:00 07:05 07:39 08:38 Temp 98.8 96.3 Pulse 59 59 60 Resp 20 24 B/P 137/68 121/65 Pulse Ox 98 93 97 O2 Delivery Room Air 04/12/16 04/12/16 09:00 12:00 Temp 96.0 Pulse 60 Resp 20 B/P 105/60 Pulse Ox 95 95 O2 Delivery Room Air Room Air Intake and Output 04/12/16 00:00 Intake Total 1292 ml Output Total 450 ml Balance 842 ml Weight (Pounds): 162 Weight (Ounces): 0.0 Weight (Calculated Kilograms): 73.644312 Constitutional: AAO x 3 well-developed well-nourished Respiratory: No accessory muscle use, other (good bilat air entry, diminshed at the bases) Gastrointestional: No tender, softNo guarding, No rebound, audible bowel sounds Extremities: No clubbing, No cyanosis, No significant edema Neurologic/Psychiatric: oriented x 3 grossly intact power is 5/5 both on sides Skin: No rash on exposed areas, No ulcerations on exposed areas Results/Procedures: Labs Laboratory Tests 04/11/16 16:55: Glucometer 150H 04/11/16 20:18: Glucometer 168H 04/12/16 05:36: Glucometer 189H 04/12/16 10:33: Glucometer 279H A/P: Assessment: UTI - medical services managing Pneumonia - medical services managing Non-syncopal fall with generalized weakness PAF, as documented on pacemaker interrogation of 02/27/16, currently in a-fib per EKG/tele- rate controlled 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 The pacemaker is working normally per interrogation carried out on 02/27/16 Vertebrobasilar insufficiency, which has been followed by his Neurologist, Dr. Aguirre. H/O possible postural hypotension due to the patient's medication. This seemed to have resolved following adjustment of beta kvgn and NADEGE inhibitor therapy. Echo of 04/08/[address] Blue: Biventricular systolic function is normal with an estimated left ventricular ejection fraction 65%. 2-D viewing does suggest underlying significant diastolic left ventricular dysfunction. Mild biatrial chamber dilatation is present. Tricuspid insufficiency is present. On this technically difficult study severity is difficult to surmise. RV systolic pressure is moderately elevated, estimated at 45 to 50 mmHg. The inferior vena cava was dilated and collapsed less than 50% on inspiration, indicative of increased right atrial pressure. Coronary artery disease primary consisting of a chronically occluded and collateralized right coronary artery and moderate mid-vessel disease of the left anterior descending artery, unchanged on his most recent cardiac catheterization of 09/20/2008. MPI of January 2015 showed no evidence of significant myocardial ischemia or infarction. Inferior/diaphragmatic wall perfusion is fixed and appears to be due diaphragmatic attenuation. Normal regional wall motion. LVEF 73% Aorta u/s showed no aneurysm involving the mid or distal abdominal aorta on ([place], [place]) Symptoms of intermittent hematuria. This has been diagnosed to be prostate hypertrophy and is being followed by his urologist, Dr Daniel Hypertension, controlled. Hyperlipidemia being treated with simvastatin, being followed by Dr Clemente. Maturity onset diabetes mellitus. Tobaccoism from which he has been advised to refrain. Moderate right internal carotid arterial disease with a diameter stenosis of approximately 40%. Moderate disease of the left common carotid with a diameter stenosis of approximately 49%. Mild left internal carotid artery disease with a diameter stenosis of 1-40% per carotid ultrasound of 07-30-2012. U/S from 08-11 showed mild to mod mixed bilat plaque involving both common and internal carotid arteries, without evidence of hemodynamic significance Chronic right bundle branch block. History of pulmonary nodule, which has previously been followed by Dr. Giang at [facility], we have referred him to Dr. Mulligan. This has been followed by Dr Mulligan and Dr Clemente Chronic exertional dyspnea, clinically stable. Bilateral leg claudication which currently appears well controlled. History of right common angioplasty and right common iliac artery stenting with a 9 x 25 mm iliac artery stent followed by femoral-femoral crossover bypass grafting with a 7 mm straight EPTFE graft by Dr. Giang in March 2006. A Doppler study of February 2011 indicated bilateral aorto-femoral bypass grafting with patency of the visualized distal aspect of the graft at femoral anastomosis. There was considerable distal disease reported. He does report chronic 1-2 block leg claudication symptoms, but this unchanged Plan: Plan: * Continue current regiment * Repeat labs and EKG VELASQUEZ HANNON MD FACP [facility] CCDS Apr 12, 2016 13:54
[2016-04-12] MEDS: CEFEPIME INJECTION 2,000 MG in NORMAL SALINE (BAXTER MINI) 50 ML IV SCH (16:22)
[2016-04-12 16:28] VITALS: BP 120/55
[2016-04-12 19:35] VITALS: BP 106/49
[2016-04-12] MEDS: ALFUZOSIN HCL 10 MG TAB (UROXATRAL) PO SCH (21:10)
[2016-04-12] MEDS: SIMvastatin 40 MG (ZOCOR) TAB PO SCH (21:10)
[2016-04-13] VITALS: BP 95/59
[2016-04-13 04:00] VITALS: BP 127/55
[2016-04-13 05:05] LABS: BASOPHILS % (AUTO) 0 % (0-10); EOSINOPHILS # (AUTO) 0.2 10^3/uL (0.0-0.3); EOSINOPHILS % (AUTO) 3 % (0-10); LYMPHOCYTES # (AUTO) 0.9 X 10^3 (1.0-4.0); LYMPHOCYTES % (AUTO) 14 % (12-44); MEAN CORPUSCULAR HEMOGLOBIN 28 PG (25-34); MEAN CORPUSCULAR HGB CONC 32 G/DL (32-36); MEAN CORPUSCULAR VOLUME 87 FL (80-99); MEAN PLATELET VOLUME 10.9 FL (7.4-10.4); MONOCYTES # (AUTO) 0.7 X 10^3 (0.0-1.0); MONOCYTES % (AUTO) 10 % (0-12); NEUTROPHILS # (AUTO) 4.9 X 10^3 (1.8-7.8); NEUTROPHILS % (AUTO) 74 % (42-75); PLATELET COUNT 185 10^3/uL (130-400); RED BLOOD COUNT 3.48 10^6/uL (4.35-5.85); RED CELL DISTRIBUTION WIDTH 16.3 % (10.0-14.5); WHITE BLOOD COUNT 6.7 10^3/uL (4.3-11.0)
[2016-04-13 05:28] LABS: CALCIUM 8.8 MG/DL (8.5-10.1); CREATININE SERUM 1.63 MG/DL (0.60-1.30); MAGNESIUM 1.9 MG/DL (1.8-2.4); POTASSIUM 4.8 MMOL/L (3.6-5.0)
[2016-04-13] MEDS: inSUlin (REGULAR) HUMAN 1 UNIT/0.01 ML (CHARGE PER UNIT) SC SCH ×4 (06:00→20:43)
[2016-04-13] MEDS: KCL 20 MEQ TAB (K-DUR) PO SCH (06:15)
[2016-04-13] MEDS: CATHETER FLUSH 10 ML SYR IV SCH ×3 (06:15→20:52)
[2016-04-13] MEDS: RT-ALBUTEROL/IPRATROPIUM 3 ML (DUONEB) VIAL INH SCH ×3 (07:06→21:42)
[2016-04-13] MEDS: sitaGLIPtin 50 MG (JANUVIA) TAB PO SCH (07:49)
[2016-04-13] MEDS: FUROSEMIDE 40 MG (LASIX) TAB PO SCH (07:49)
[2016-04-13] MEDS: FINASTERIDE (PROSCAR) 5 MG TAB PO SCH (07:49)
[2016-04-13] MEDS: APIXABAN 5 MG (ELIQUIS) TABLET PO SCH ×2 (07:49→20:52)
[2016-04-13] MEDS: lisINopril 10 MG (PRINIVIL) TAB PO SCH (07:49)
[2016-04-13] MEDS: PIOGLITAZONE 30MG (ACTOS) TAB PO SCH (07:50)
[2016-04-13] MEDS: ASPIRIN E.C. 81 MG (ECOTRIN) TAB PO SCH (07:50)
--- NOTE | 2016-04-13 08:07 | Progress Note (SOAP) ---
Subjective Subjective/Events-last exam patient feels solid 70 percent better than when first came in. Patient has no chest pain. Patient able to walk around with a walker and doing much better. Patient had pneumonia and UTI Objective Exam Vital Signs Date Time Temp Pulse Resp B/P Pulse Ox O2 Delivery O2 Flow Rate FiO2 04/13/16 07:09 95 04/13/16 04:00 96.1 73 20 127/55 95 Room Air 04/13/16 01:00 60 04/13/16 00:00 98.1 59 18 95/59 96 Room Air 04/12/16 21:23 94 04/12/16 20:00 Room Air 04/12/16 19:35 96.8 61 16 106/49 96 Room Air 04/12/16 19:00 60 04/12/16 16:28 96.0 60 20 120/55 98 Room Air 04/12/16 15:44 96 04/12/16 12:00 96.0 60 20 105/60 95 Room Air 04/12/16 09:00 95 Room Air 04/12/16 08:38 96.3 60 24 121/65 97 Room Air I & O 04/13/16 07:00 Intake Total 1650 ml Output Total 300 ml Balance 1350 ml Capillary Refill : General Appearance: No Apparent Distress WD/WN Results Lab Laboratory Tests 04/13/16 04:35 Laboratory Tests 04/12/16 10:33: Glucometer 279H 04/12/16 15:55: Glucometer 118H 04/12/16 20:43: Glucometer 258H 04/13/16 04:35: Anion Gap 8, BUN/Creatinine Ratio 37, Basophils # (Auto) 0.0, Basophils (%) ( Auto) 0, Blood Urea Nitrogen 60H, Calcium Level 8.8, Carbon Dioxide Level 22, Chloride Level 104, Creatinine 1.63H, Eosinophils # (Auto) 0.2, Eosinophils (%) (Auto) 3, Estimat Glomerular Filtration Rate 41, Glucose Level 140H, Hematocrit 30L, Hemoglobin 9.7L, Lymphocytes # (Auto) 0.9L, Lymphocytes (%) (Auto) 14, Magnesium Level 1.9, Mean Corpuscular Hemoglobin 28, Mean Corpuscular Hemoglobin Concent 32, Mean Corpuscular Volume 87, Mean Platelet Volume 10.9H, Monocytes # (Auto) 0.7, Monocytes (%) (Auto) 10, Neutrophils # (Auto) 4.9, Neutrophils (%) (Auto) 74, Platelet Count 185, Potassium Level 4.8, Red Blood Count 3.48L, Red Cell Distribution Width 16.3H, Sodium Level 134L, White Blood Count 6.7 04/13/16 05:15: Glucometer 146H Assessment/Plan Assessment/Plan Assess & Plan/Chief Complaint UTI. Generalized weakness. Congestive heart failure. . 04/13/16. UTI. Generalized weakness. Pneumonia. Congestive heart failure. Patient feels he is improving Diagnosis/Problems: VERONICA ESPINAL DO Apr 13, 2016 08:07
[2016-04-13 08:15] VITALS: BP 109/52
[2016-04-13 09:46] LABS: BILIRUBIN,URINE NEGATIVE (NEGATIVE); KETONES,URINE NEGATIVE (NEGATIVE); LEUKOCYTE ESTERASE ,URINE 1+ (NEGATIVE); NITRITE,URINE NEGATIVE (NEGATIVE); PH,URINE 5 (5-9); PROTEIN,URINE 1+ (NEGATIVE); UROBILINOGEN,URINE NORMAL (NORMAL)
--- NOTE | 2016-04-13 09:47 | Diagnostic Imaging Report ---
INDICATION: Urinary tract infections. FINDINGS: There is a right pleural effusion and subjacent lower lobe infiltrate unchanged from prior. Left lung is clear. There is no pneumothorax. Pacemaker device is stable. IMPRESSION: Right basilar pleural parenchymal opacity unchanged. Dictated by: Dictated on workstation # [id number]
[2016-04-13] MEDS ORDERED: LEVOFLOXACIN 750 MG TAB (LEVAQUIN) PO SCH (11:00)
[2016-04-13 12:00] VITALS: BP 101/49
[2016-04-13] MEDS: ACETAMINOPHEN 325 MG TABLET/CAPLET (TYLENOL) PO PRN (13:37)
--- NOTE | 2016-04-13 14:56 | Progress Note-Cardiology ---
Cardiology SOAP Progress Note Subjective: He does not report cp or palp or syncope Notes more ankle swelling Has been spending most part of the day sitting in recliner with legs down Objective: I&O/Vital Signs Vital Sign - Last 12Hours 04/13/16 04/13/16 04/13/16 04/13/16 04:00 07:00 07:09 08:00 Temp 96.1 Pulse 73 60 Resp 20 B/P 127/55 Pulse Ox 95 95 O2 Delivery Room Air Room Air 04/13/16 04/13/16 04/13/16 08:15 12:00 14:20 Temp 96.6 95.0 Pulse 60 60 Resp 20 22 B/P 109/52 101/49 Pulse Ox 99 96 96 O2 Delivery Room Air Room Air Intake and Output 04/13/16 00:00 Intake Total 1350 ml Output Total 300 ml Balance 1050 ml Weight (Pounds): 162 Weight (Ounces): 0.0 Weight (Calculated Kilograms): 73.856986 Constitutional: AAO x 3 well-developed well-nourished Respiratory: No accessory muscle use, other (good bilat air entry, diminshed at the bases) Gastrointestional: No tender, softNo guarding, No rebound, audible bowel sounds Extremities: No clubbing, No cyanosis, significant edema (2-3+ bilateral leg edema) Neurologic/Psychiatric: oriented x 3 grossly intact power is 5/5 both on sides Skin: No rash on exposed areas, No ulcerations on exposed areas Results/Procedures: Labs Laboratory Tests 04/12/16 15:55: Glucometer 118H 04/12/16 20:43: Glucometer 258H 04/13/16 04:35: Anion Gap 8, BUN/Creatinine Ratio 37, Basophils # (Auto) 0.0, Basophils (%) ( Auto) 0, Blood Urea Nitrogen 60H, Calcium Level 8.8, Carbon Dioxide Level 22, Chloride Level 104, Creatinine 1.63H, Eosinophils # (Auto) 0.2, Eosinophils (%) (Auto) 3, Estimat Glomerular Filtration Rate 41, Glucose Level 140H, Hematocrit 30L, Hemoglobin 9.7L, Lymphocytes # (Auto) 0.9L, Lymphocytes (%) (Auto) 14, Magnesium Level 1.9, Mean Corpuscular Hemoglobin 28, Mean Corpuscular Hemoglobin Concent 32, Mean Corpuscular Volume 87, Mean Platelet Volume 10.9H, Monocytes # (Auto) 0.7, Monocytes (%) (Auto) 10, Neutrophils # (Auto) 4.9, Neutrophils (%) (Auto) 74, Platelet Count 185, Potassium Level 4.8, Red Blood Count 3.48L, Red Cell Distribution Width 16.3H, Sodium Level 134L, White Blood Count 6.7 04/13/16 05:15: Glucometer 146H 04/13/16 09:40: Urine Bacteria NEGATIVE, Urine Bilirubin NEGATIVE, Urine Casts NONE, Urine Clarity CLEAR, Urine Color YELLOW, Urine Crystals NONE, Urine Culture Indicated NO, Urine Glucose (UA) NEGATIVE, Urine Ketones NEGATIVE, Urine Leukocyte Esterase 1+H, Urine Mucus NEGATIVE, Urine Nitrite NEGATIVE, Urine Protein 1+H, Urine RBC 25-50H, Urine RBC (Auto) 5+H, Urine Specific [place] 1.020, Urine Squamous Epithelial Cells 2-5, Urine Urobilinogen NORMAL, Urine WBC 2-5, Urine pH 5 04/13/16 11:07: Glucometer 239H A/P: Assessment: Leg edema due to venous insufficiency UTI - medical services managing Pneumonia - medical services managing Non-syncopal fall with generalized weakness PAF, as documented on pacemaker interrogation of 02/27/16, currently in a-fib with a paced ventricular rhythm 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 The pacemaker is working normally per interrogation carried out on 02/27/16 Vertebrobasilar insufficiency, which has been followed by his Neurologist, Dr. Aguirre. H/o possible postural hypotension due to the patient's medication. This seemed to have resolved following adjustment of beta kvng and NADEGE inhibitor therapy. H/o chronic diastolic CHF Echo of 04/08/[address] Blue: Biventricular systolic function is normal with an estimated left ventricular ejection fraction 65%. 2-D viewing does suggest underlying significant diastolic left ventricular dysfunction. Mild biatrial chamber dilatation is present. Tricuspid insufficiency is present. On this technically difficult study severity is difficult to surmise. RV systolic pressure is moderately elevated, estimated at 45 to 50 mmHg. The inferior vena cava was dilated and collapsed less than 50% on inspiration, indicative of increased right atrial pressure. Coronary artery disease primary consisting of a chronically occluded and collateralized right coronary artery and moderate mid-vessel disease of the left anterior descending artery, unchanged on his most recent cardiac catheterization of 09/20/2008. MPI of January 2015 showed no evidence of significant myocardial ischemia or infarction. Inferior/diaphragmatic wall perfusion is fixed and appears to be due diaphragmatic attenuation. Normal regional wall motion. LVEF 73% Aorta u/s showed no aneurysm involving the mid or distal abdominal aorta on ([facility], [place], [place]) Symptoms of intermittent hematuria. This has been diagnosed to be prostate hypertrophy and is being followed by his urologist, Dr Daniel Hypertension, controlled. Hyperlipidemia being treated with simvastatin, being followed by Dr Clemente. Maturity onset diabetes mellitus. Tobaccoism from which he has been advised to refrain. Moderate right internal carotid arterial disease with a diameter stenosis of approximately 40%. Moderate disease of the left common carotid with a diameter stenosis of approximately 49%. Mild left internal carotid artery disease with a diameter stenosis of 1-40% per carotid ultrasound of 07-30-2012. U/S from 08-11 showed mild to mod mixed bilat plaque involving both common and internal carotid arteries, without evidence of hemodynamic significance Chronic right bundle branch block. History of pulmonary nodule, which has previously been followed by Dr. Giang at [facility], we have referred him to Dr. Mulligan. This has been followed by Dr Mulligan and Dr Clemente Chronic exertional dyspnea, clinically stable. Bilateral leg claudication which currently appears well controlled. History of right common angioplasty and right common iliac artery stenting with a 9 x 25 mm iliac artery stent followed by femoral-femoral crossover bypass grafting with a 7 mm straight EPTFE graft by Dr. Giang in March 2006. A Doppler study of February 2011 indicated bilateral aorto-femoral bypass grafting with patency of the visualized distal aspect of the graft at femoral anastomosis. There was considerable distal disease reported. He does report chronic 1-2 block leg claudication symptoms, but this unchanged Plan: * Keep legs elevated when seated * iv furosemide today to relieve leg swelling * Monitor labs VELASQUEZ HANNON MD FACP [facility] CCDS Apr 13, 2016 14:56
[2016-04-13] MEDS ORDERED: FUROSEMIDE 40 MG/4 ML INJ (LASIX) IVP NR (15:00)
[2016-04-13 16:00] VITALS: BP 102/62
[2016-04-13] MEDS: CEFEPIME INJECTION 2,000 MG in NORMAL SALINE (BAXTER MINI) 50 ML IV SCH (16:32)
[2016-04-13 20:00] VITALS: BP 96/52
[2016-04-13] MEDS: ALFUZOSIN HCL 10 MG TAB (UROXATRAL) PO SCH (20:52)
[2016-04-13] MEDS: SIMvastatin 40 MG (ZOCOR) TAB PO SCH (20:52)
[2016-04-14] VITALS: BP 100/53
[2016-04-14] MEDS: inSUlin (REGULAR) HUMAN 1 UNIT/0.01 ML (CHARGE PER UNIT) SC SCH ×4 (05:09→21:00)
[2016-04-14 05:38] LABS: BASOPHILS % (AUTO) 0 % (0-10); EOSINOPHILS # (AUTO) 0.2 10^3/uL (0.0-0.3); EOSINOPHILS % (AUTO) 2 % (0-10); LYMPHOCYTES # (AUTO) 0.9 X 10^3 (1.0-4.0); LYMPHOCYTES % (AUTO) 13 % (12-44); MEAN CORPUSCULAR HEMOGLOBIN 28 PG (25-34); MEAN CORPUSCULAR HGB CONC 32 G/DL (32-36); MEAN CORPUSCULAR VOLUME 86 FL (80-99); MEAN PLATELET VOLUME 11.3 FL (7.4-10.4); MONOCYTES # (AUTO) 0.7 X 10^3 (0.0-1.0); MONOCYTES % (AUTO) 10 % (0-12); NEUTROPHILS # (AUTO) 5.3 X 10^3 (1.8-7.8); NEUTROPHILS % (AUTO) 75 % (42-75); PLATELET COUNT 172 10^3/uL (130-400); RED BLOOD COUNT 3.39 10^6/uL (4.35-5.85); RED CELL DISTRIBUTION WIDTH 16.4 % (10.0-14.5); WHITE BLOOD COUNT 7.1 10^3/uL (4.3-11.0)
[2016-04-14] MEDS: KCL 20 MEQ TAB (K-DUR) PO SCH (05:58)
[2016-04-14] MEDS: CATHETER FLUSH 10 ML SYR IV SCH ×3 (05:58→22:00)
[2016-04-14 06:01] LABS: CALCIUM 8.7 MG/DL (8.5-10.1); CREATININE SERUM 1.86 MG/DL (0.60-1.30); MAGNESIUM 1.9 MG/DL (1.8-2.4); POTASSIUM 4.8 MMOL/L (3.6-5.0)
[2016-04-14] MEDS: RT-ALBUTEROL/IPRATROPIUM 3 ML (DUONEB) VIAL INH SCH ×3 (07:25→23:50)
[2016-04-14] MEDS: ASPIRIN E.C. 81 MG (ECOTRIN) TAB PO SCH (08:04)
[2016-04-14] MEDS: PIOGLITAZONE 30MG (ACTOS) TAB PO SCH (08:04)
[2016-04-14] MEDS: sitaGLIPtin 50 MG (JANUVIA) TAB PO SCH (08:04)
[2016-04-14] MEDS: FINASTERIDE (PROSCAR) 5 MG TAB PO SCH (08:04)
[2016-04-14] MEDS: APIXABAN 5 MG (ELIQUIS) TABLET PO SCH ×2 (08:04→20:02)
[2016-04-14] MEDS: FUROSEMIDE 40 MG (LASIX) TAB PO SCH (08:04)
[2016-04-14] MEDS: lisINopril 10 MG (PRINIVIL) TAB PO SCH (08:04)
[2016-04-14 08:10] VITALS: BP 99/46
--- NOTE | 2016-04-14 08:50 | Progress Note-Cardiology ---
Cardiology SOAP Progress Note Subjective: Sitting up in a chair at the bedside. C/O LE edema. No c/o CP or dyspnea. No c/o palpitations. Objective: I&O/Vital Signs Vital Sign - Last 12Hours 04/13/16 04/14/16 04/14/16 04/14/16 21:42 00:00 01:00 04:00 Temp 98.7 Pulse 60 59 Resp 18 18 B/P 100/53 Pulse Ox 98 96 O2 Delivery Room Air 04/14/16 04/14/16 07:00 07:25 Pulse 60 Pulse Ox 98 Intake and Output 04/14/16 00:00 Intake Total 1560 ml Output Total 1000 ml Balance 560 ml Weight (Pounds): 162 Weight (Ounces): 0.0 Weight (Calculated Kilograms): 73.559001 Constitutional: AAO x 3 well-developed well-nourished Respiratory: No accessory muscle use, other (good bilat air entry, diminshed at the bases) Gastrointestional: No tender, softNo guarding, No rebound, audible bowel sounds Extremities: No clubbing, No cyanosis, significant edema (2-3+ bilateral leg edema) Neurologic/Psychiatric: oriented x 3 grossly intact power is 5/5 both on sides Skin: No rash on exposed areas, No ulcerations on exposed areas Results/Procedures: Labs Laboratory Tests 04/13/16 09:40: Urine Bacteria NEGATIVE, Urine Bilirubin NEGATIVE, Urine Casts NONE, Urine Clarity CLEAR, Urine Color YELLOW, Urine Crystals NONE, Urine Culture Indicated NO, Urine Glucose (UA) NEGATIVE, Urine Ketones NEGATIVE, Urine Leukocyte Esterase 1+H, Urine Mucus NEGATIVE, Urine Nitrite NEGATIVE, Urine Protein 1+H, Urine RBC 25-50H, Urine RBC (Auto) 5+H, Urine Specific [place] 1.020, Urine Squamous Epithelial Cells 2-5, Urine Urobilinogen NORMAL, Urine WBC 2-5, Urine pH 5 04/13/16 11:07: Glucometer 239H 04/13/16 15:52: Glucometer 205H 04/13/16 20:42: Glucometer 143H 04/14/16 04:47: Glucometer 168H 04/14/16 04:55: Anion Gap 9, BUN/Creatinine Ratio 38, Basophils # (Auto) 0.0, Basophils (%) ( Auto) 0, Blood Urea Nitrogen 71H, Calcium Level 8.7, Carbon Dioxide Level 22, Chloride Level 102, Creatinine 1.86H, Eosinophils # (Auto) 0.2, Eosinophils (%) (Auto) 2, Estimat Glomerular Filtration Rate 36, Glucose Level 163H, Hematocrit 29L, Hemoglobin 9.4L, Lymphocytes # (Auto) 0.9L, Lymphocytes (%) (Auto) 13, Magnesium Level 1.9, Mean Corpuscular Hemoglobin 28, Mean Corpuscular Hemoglobin Concent 32, Mean Corpuscular Volume 86, Mean Platelet Volume 11.3H, Monocytes # (Auto) 0.7, Monocytes (%) (Auto) 10, Neutrophils # (Auto) 5.3, Neutrophils (%) (Auto) 75, Platelet Count 172, Potassium Level 4.8, Red Blood Count 3.39L, Red Cell Distribution Width 16.4H, Sodium Level 133L, White Blood Count 7.1 A/P: Assessment: Acute on chronic diastolic CHF Leg edema in part due to venous insufficiency UTI - medical services managing Pneumonia - medical services managing Non-syncopal fall with generalized weakness PAF, as documented on pacemaker interrogation of 02/27/16, currently in a-fib with a paced ventricular rhythm 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 The pacemaker is working normally per interrogation carried out on 02/27/16 Vertebrobasilar insufficiency, which has been followed by his Neurologist, Dr. Aguirre. H/o possible postural hypotension due to the patient's medication Echo of 04/08/[address] Blue: Biventricular systolic function is normal with an estimated left ventricular ejection fraction 65%. 2-D viewing does suggest underlying significant diastolic left ventricular dysfunction. Mild biatrial chamber dilatation is present. Tricuspid insufficiency is present. On this technically difficult study severity is difficult to surmise. RV systolic pressure is moderately elevated, estimated at 45 to 50 mmHg. The inferior vena cava was dilated and collapsed less than 50% on inspiration, indicative of increased right atrial pressure. Coronary artery disease primary consisting of a chronically occluded and collateralized right coronary artery and moderate mid-vessel disease of the left anterior descending artery, unchanged on his most recent cardiac catheterization of 09/20/2008. MPI of January 2015 showed no evidence of significant myocardial ischemia or infarction. Inferior/diaphragmatic wall perfusion is fixed and appears to be due diaphragmatic attenuation. Normal regional wall motion. LVEF 73% Aorta u/s showed no aneurysm involving the mid or distal abdominal aorta on ([facility], [place], [place]) Symptoms of intermittent hematuria. This has been diagnosed to be prostate hypertrophy and is being followed by his urologist, Dr Daniel Hypertension, controlled. Hyperlipidemia being treated with simvastatin, being followed by Dr Clemente. Maturity onset diabetes mellitus. Tobaccoism from which he has been advised to refrain. Moderate right internal carotid arterial disease with a diameter stenosis of approximately 40%. Moderate disease of the left common carotid with a diameter stenosis of approximately 49%. Mild left internal carotid artery disease with a diameter stenosis of 1-40% per carotid ultrasound of 07-30-2012. U/S from 08-11 showed mild to mod mixed bilat plaque involving both common and internal carotid arteries, without evidence of hemodynamic significance Chronic right bundle branch block. History of pulmonary nodule, which has previously been followed by Dr. Giang at [facility], we have referred him to Dr. Mulligan. This has been followed by Dr Mulligan and Dr Clemente Chronic exertional dyspnea, clinically stable. Bilateral leg claudication which currently appears well controlled. History of right common angioplasty and right common iliac artery stenting with a 9 x 25 mm iliac artery stent followed by femoral-femoral crossover bypass grafting with a 7 mm straight EPTFE graft by Dr. Giang in March 2006. A Doppler study of February 2011 indicated bilateral aorto-femoral bypass grafting with patency of the visualized distal aspect of the graft at femoral anastomosis. There was considerable distal disease reported. He does report chronic 1-2 block leg claudication symptoms, but this unchanged Plan: * Give additional lasix iv today d/t acute on chronic diastolic CHF * Give additional potassium today * D/t somewhat low BP with normal LVEF and increasing Cr will stop NADEGE (-) * Monitor labs Physician Assessment Physician Assessment Lungs: good air entry, but diminished at the bases Cor: reg A&R * As documented in our note above * Complex management due to multiple comorbidities * Additional iv furosemide today * Follow labs closely because of considerably impaired renal function * I spoke with him in detail and answered questions CRIS MCKEON Apr 14, 2016 08:50 VELASQUEZ HANNON MD [facility] Apr 14, 2016 09:09
[2016-04-14] MEDS ORDERED: FUROSEMIDE 40 MG/4 ML INJ (LASIX) IVP NR (09:00)
[2016-04-14] MEDS ORDERED: KCL 20 MEQ TAB (K-DUR) PO NR (09:00)
--- NOTE | 2016-04-14 09:19 | Physical Therapy Daily Note ---
PT Daily Note-Current Subjective Patient is agreeable to participate with PT. Patient voices concern with bilateral LE edema. RN notified. Pain Numeric Pain Scale: 5-Moderate Pain Location: Lower Location Body Site: Back Pain Description: Ache Mental Status Patient Orientation: Normal For Age Transfers Functional [place] Measure 0=Not Assessed/NA 4=Minimal Assistance 1=Total Assistance 5=Supervision or Setup 2=Maximal Assistance 6=Modified [place] 3=Moderate Assistance 7=Complete IndependenceIRFPAI Quality Coding Scale 6 Independent with activity with or without an assistive device 5 Patient requires set up or clean up by helper. Patient completes activity by themselves 4 Supervision or touching assist (CGA). [place] provide cues , steadying assist 3 The helper provides less than half the effort to complete the activity 2 The helper provides more than half the effort to complete the activity 1 Dependent. The helper does all the effort to complete an activity 7 Patient refused to complete or attempt activity 9 The patient did not perform the activity before the current illness or injury 88 Not attempted due to Medical conditions or safety concerns Transfers (B, C, W/C) (FIM): 5 Scootin Sit to/from Stand: 5 Sit to Stand (QC): 5 SBA with all mobility Gait Training Does the Patient Walk?: Yes Gait (FIM): 5 Distance (FIM): 3=150 ft Distance: 400' Gait Level of Assist: 5 Gait Assistive Device: FWW noted diminished coordination and proprioception with ambulation with left LE displaying uncoordinated gait sequence Exercises Supine Ex: Ankle pumps, Quad Set Supine Reps: 15 (in recliner) Seated Therapy Exercises: Ankle pumps, Long arc quads Seated Reps: 15 Standing: Heel/toe raises, 3 way Ex=Flex, Abd, Ext Standing Reps: 15 exercises to improve functional strength to improve functional mobility Assessment Patient presents with diminished coordination with all mobility. Patient does fatigue quickly with minimal activity. PT Chcf Goals Clin Nurse Goals PT Clin Nurse Goals Time Frame: Apr 18, 2016 Transfers (B,C,W/C) (FIM): 5 Sit to Lying (QC): 6 Lying-Sitting on Side/Bed(QC): 6 Sit to Stand (QC): 4 Rollin Gait (FIM): 4 Distance: 300' Walk 50ft with 2 Turns (QC): 4 Walk 150 ft (QC): 4 Gait Level of Assist: 4 (CGA) Gait Assistive Device: FWW PT Plan Treatment/Plan Treatment Plan: Continue Plan of Care Treatment Plan: Bed Mobility, Education, Functional Activity Kevan, Functional Strength, Gait, Safety, Therapeutic Exercise, Transfers Treatment Duration: Apr 18, 2016 Visits Per Week: 5-6 Minutes/Day (M-F): 15-30 Minutes/Day (Sat/Siddiqui): 15-30 Time/GCodes Time In: 845 Time Out: 915 Total Billed Treatment Time: 30 Total Billed Treatment 1 visit GT 15 min EX 15 min SRI ABDI PT Apr 14, 2016 09:19
[2016-04-14] MEDS: LACTATED RINGERS 1,000 ML IV SCH ×3 (10:08→23:06)
[2016-04-14] MEDS: MENTHOL/ZINC OXIDE (CALMOSEPTINE) 113 GM TUBE TOP SCH ×3 (10:32→10:35)
[2016-04-14 12:00] VITALS: BP 131/64
--- NOTE | 2016-04-14 12:00 | Occupational Ther Daily Note ---
OT Current Status-Daily Note Subjective Pt sitting in chair, agrees to treatment. Pt reports no pain at rest, but 7/10 pain in left hip and back with movement. Mental Status/Objective Functional [place] Measure 0=Not Assessed/NA 4=Minimal Assistance 1=Total Assistance 5=Supervision or Setup 2=Maximal Assistance 6=Modified [place] 3=Moderate Assistance 7=Complete [place] ADL-Treatment Functional [place] Measure 0=Not Assessed/NA 4=Minimal Assistance 1=Total Assistance 5=Supervision or Setup 2=Maximal Assistance 6=Modified [place] 3=Moderate Assistance 7=Complete IndependenceIRFPAI Quality Coding Scale 6 Independent with activity with or without an assistive device 5 Patient requires set up or clean up by helper. Patient completes activity by themselves 4 Supervision or touching assist (CGA). [place] provide cues , steadying assist 3 The helper provides less than half the effort to complete the activity 2 The helper provides more than half the effort to complete the activity 1 Dependent. The helper does all the effort to complete an activity 7 Patient refused to complete or attempt activity 9 The patient did not perform the activity before the current illness or injury 88 Not attempted due to Medical conditions or safety concerns Other Treatment Pt has just finished showering with assist from nursing. Pt agrees to UE exercises while seated. Pt performed bilateral UE exercises to promote increased strength needed for ADLs and transfers. Pt completed shoulder flexion , abduction, biceps curls, and triceps extension exercises x15 reps with mild resistance (yellow) theraband. Pt unable to complete all elbow exercises on left secondary to placement of IV. Pt has good participation in exercises. Sitting in chair with needs met after session. Education OT Patient Education: Exercise program Teaching Recipient: Patient Teaching Methods: Demonstration Response to Teaching: Return Demonstration OT Short Term Goals Short Term Goals 1=Demonstrate adherence to instructed precautions during ADL tasks. 2=Patient will verbalize/demonstrate understanding of assistive devices/ modifications for ADL. 3=Patient will improve strength/tolerance for activity to enable patient to perform ADL's. OT Group Home Goals Supervisor Beater Room Goals Time Frame: Apr 25, 2016 Eating (FIM): 6 Eating (QC): 6 Oral Hygiene (QC): 6 Grooming(FIM): 6 Toileting Hygiene (QC): 5 Bathing(FIM): 5 Upper Body Dressing(FIM): 5 Lower Body Dressing(FIM): 5 Toileting(FIM): 5 Toilet/Commode Transfer(FIM): 5 Toilet/Commode Transfer (QC): 5 Additional Goals: 1-Demonstrate ADL Tasks, 2-Verbalize Understanding, 3- ImproveStrength/Kevan 1=Demonstrate adherence to instructed precautions during ADL tasks. 2=Patient will verbalize/demonstrate understanding of assistive devices/ modifications for ADL. 3=Patient will improve strength/tolerance for activity to enable patient to perform ADL's. OT Education/Plan Problem List/Assessment Pt to benefit from skilled OT intervention for ADL training, transfers, strengthening, and home safety education to maximize level of function and allow safe discharge. Discharge Recommendations Plan/Recommendations: Continue POC Treatment Plan/Plan of Care Patient would benefit from OT for education, treatment and training to promote independence in ADL's, mobility, safety and/or upper extremity function for ADL' s. Plan of Care: ADL Retraining, Functional Mobility, UE Funct Exercise/Act Treatment Duration: Apr 25, 2016 Visits Per Week: 5 Agreement: Yes Rehab Potential: Fair Time/GCodes Start Time: 11:07 Stop Time: 11:23 Total Time Billed (hr/min): 16 Billed Treatment Time 1 visit, EX(16minutes) BETHANY FENG OT Apr 14, 2016 12:00
--- NOTE | 2016-04-14 13:48 | Physical Therapy Daily Note ---
PT Daily Note-Current Subjective Patient is very agreeable to participate with PT. No c/o at this time. Pain Numeric Pain Scale: 0-No Pain Location: No Pain Reported Mental Status Patient Orientation: Normal For Age Attachments: IV Transfers Functional [place] Measure 0=Not Assessed/NA 4=Minimal Assistance 1=Total Assistance 5=Supervision or Setup 2=Maximal Assistance 6=Modified [place] 3=Moderate Assistance 7=Complete IndependenceIRFPAI Quality Coding Scale 6 Independent with activity with or without an assistive device 5 Patient requires set up or clean up by helper. Patient completes activity by themselves 4 Supervision or touching assist (CGA). [place] provide cues , steadying assist 3 The helper provides less than half the effort to complete the activity 2 The helper provides more than half the effort to complete the activity 1 Dependent. The helper does all the effort to complete an activity 7 Patient refused to complete or attempt activity 9 The patient did not perform the activity before the current illness or injury 88 Not attempted due to Medical conditions or safety concerns Transfers (B, C, W/C) (FIM): 5 Scootin Sit to/from Stand: 5 Sit to Stand (QC): 5 Gait Training Does the Patient Walk?: Yes Gait (FIM): 5 Distance (FIM): 3=150 ft Distance: 225' x 1; 125' x 1 Walk 50 ft with 2 Turns(QC): 5 Walk 150 ft (QC): 5 Gait Level of Assist: 5 Gait Assistive Device: FWW safe and functional Exercises Seated Therapy Exercises: Ankle pumps, Long arc quads, Hip flexion Seated Reps: 25 Assessment Patient tolerated treatment well and was educated on importance of using his FWW at home and community to prevent injury due to possibility of LOB. Patient is improving with treatment and will require a FWW upon dismissal from hospital for home use. PT Pest Management Supervisor Goals Longterm Goals PT Pest Management Supervisor Goals Time Frame: Apr 18, 2016 Transfers (B,C,W/C) (FIM): 5 Sit to Lying (QC): 6 Lying-Sitting on Side/Bed(QC): 6 Sit to Stand (QC): 4 Rollin Gait (FIM): 4 Distance: 300' Walk 50ft with 2 Turns (QC): 4 Walk 150 ft (QC): 4 Gait Level of Assist: 4 (CGA) Gait Assistive Device: FWW PT Plan Treatment/Plan Treatment Plan: Continue Plan of Care Treatment Plan: Bed Mobility, Education, Functional Activity Kevan, Functional Strength, Gait, Safety, Therapeutic Exercise, Transfers Treatment Duration: Apr 18, 2016 Visits Per Week: 5-6 Minutes/Day (M-F): 15-30 Minutes/Day (Sat/Siddiqui): 15-30 Safety Risks/Education Patient Education: Safety Issues Teaching Recipient: Patient Teaching Methods: Discussion Response to Teaching: Verbalize Understanding Time/GCodes Time In: 1320 Time Out: 1343 Total Billed Treatment Time: 23 Total Billed Treatment 1 visit EX 10 min GT 13 min SRI ABDI PT Apr 14, 2016 13:48
[2016-04-14 16:15] VITALS: BP 106/45
--- NOTE | 2016-04-14 19:20 | Progress Note (SOAP) ---
Subjective Subjective/Events-last exam Fwup Pneumonia, UTI, weakness with falls, urinary retention, Hypertension, DM II. Getting stronger. Wants to know when gets to go home. Got extra lasix last night due to edema in his legs. Objective Exam Vital Signs Date Time Temp Pulse Resp B/P Pulse Ox O2 Delivery O2 Flow Rate FiO2 04/14/16 19:00 60 04/14/16 16:15 97.8 60 20 106/45 90 Room Air 04/14/16 15:26 98 04/14/16 13:00 59 04/14/16 12:00 94.9 60 20 131/64 95 Room Air 04/14/16 08:10 96.0 57 20 99/46 98 Room Air 04/14/16 08:00 Room Air 04/14/16 07:25 98 04/14/16 07:00 60 04/14/16 04:00 18 04/14/16 01:00 59 04/14/16 00:00 98.7 60 18 100/53 96 Room Air 04/13/16 21:42 98 04/13/16 20:00 96.2 59 18 96/52 98 Room Air 04/13/16 20:00 Room Air I & O 04/14/16 07:00 Intake Total 1710 ml Output Total 1300 ml Balance 410 ml Capillary Refill : General Appearance: No Apparent Distress Neck: Supple Respiratory: Lungs Clear Cardiovascular: Systolic Murmur Gallop/S3 Irregularly Irregular Gastrointestinal: normal bowel sounds non tender soft Extremity: Non Tender No Calf Tenderness Pedal Edema (2 plus) Neurologic/Psychiatric: Alert Oriented x3 Results Lab Laboratory Tests 04/13/16 20:42: Glucometer 143H 04/14/16 04:47: Glucometer 168H 04/14/16 04:55: Anion Gap 9, BUN/Creatinine Ratio 38, Basophils # (Auto) 0.0, Basophils (%) ( Auto) 0, Blood Urea Nitrogen 71H, Calcium Level 8.7, Carbon Dioxide Level 22, Chloride Level 102, Creatinine 1.86H, Eosinophils # (Auto) 0.2, Eosinophils (%) (Auto) 2, Estimat Glomerular Filtration Rate 36, Glucose Level 163H, Hematocrit 29L, Hemoglobin 9.4L, Lymphocytes # (Auto) 0.9L, Lymphocytes (%) (Auto) 13, Magnesium Level 1.9, Mean Corpuscular Hemoglobin 28, Mean Corpuscular Hemoglobin Concent 32, Mean Corpuscular Volume 86, Mean Platelet Volume 11.3H, Monocytes # (Auto) 0.7, Monocytes (%) (Auto) 10, Neutrophils # (Auto) 5.3, Neutrophils (%) (Auto) 75, Platelet Count 172, Potassium Level 4.8, Red Blood Count 3.39L, Red Cell Distribution Width 16.4H, Sodium Level 133L, White Blood Count 7.1 04/14/16 11:03: Glucometer 256H 04/14/16 16:16: Glucometer 226H Assessment/Plan Assessment/Plan Assess & Plan/Chief Complaint 1. Pneumonia--improved, DC abx 2. UTI--resolved 3. Edema--appears dependant so will add GEOVANNI hose and elevate LEs 4. Acute Renal Insufficiency--likely dehydration so will give gentle IV rehydration and repeat Chem 7 in AM 5. Hypertension--stable 6. DMII--continue SSI 7. Weakness--improving 8. BPH/Urinary Retention--discussed TURP at later date Diagnosis/Problems: GLADYS ORONA DO Apr 14, 2016 7:20 pm
[2016-04-14 19:45] VITALS: BP 127/69
[2016-04-14] MEDS: ALFUZOSIN HCL 10 MG TAB (UROXATRAL) PO SCH (20:02)
[2016-04-14] MEDS: SIMvastatin 40 MG (ZOCOR) TAB PO SCH (20:02)
[2016-04-15] VITALS: BP 105/65
[2016-04-15 04:00] VITALS: BP 123/53
[2016-04-15 05:26] LABS: BASOPHILS % (AUTO) 0 % (0-10); EOSINOPHILS % (AUTO) 1 % (0-10); LYMPHOCYTES # (AUTO) 0.6 X 10^3 (1.0-4.0); LYMPHOCYTES % (AUTO) 13 % (12-44); MEAN CORPUSCULAR HEMOGLOBIN 28 PG (25-34); MEAN CORPUSCULAR HGB CONC 32 G/DL (32-36); MEAN CORPUSCULAR VOLUME 86 FL (80-99); MEAN PLATELET VOLUME 11.5 FL (7.4-10.4); MONOCYTES # (AUTO) 0.7 X 10^3 (0.0-1.0); MONOCYTES % (AUTO) 14 % (0-12); NEUTROPHILS # (AUTO) 3.2 X 10^3 (1.8-7.8); NEUTROPHILS % (AUTO) 71 % (42-75); PLATELET COUNT 162 10^3/uL (130-400); RED BLOOD COUNT 3.46 10^6/uL (4.35-5.85); RED CELL DISTRIBUTION WIDTH 16.5 % (10.0-14.5); WHITE BLOOD COUNT 4.5 10^3/uL (4.3-11.0)
[2016-04-15 05:44] LABS: CREATININE SERUM 1.7 MG/DL (0.60-1.30); MAGNESIUM 2.1 MG/DL (1.8-2.4); POTASSIUM 4.8 MMOL/L (3.6-5.0)
[2016-04-15] MEDS: CATHETER FLUSH 10 ML SYR IV SCH ×3 (06:00→22:00)
[2016-04-15] MEDS: inSUlin (REGULAR) HUMAN 1 UNIT/0.01 ML (CHARGE PER UNIT) SC SCH ×4 (06:00→21:00)
[2016-04-15] MEDS: KCL 20 MEQ TAB (K-DUR) PO SCH (06:42)
[2016-04-15] MEDS: RT-ALBUTEROL/IPRATROPIUM 3 ML (DUONEB) VIAL INH SCH ×3 (07:32→22:20)
[2016-04-15 08:00] VITALS: BP 109/62
--- NOTE | 2016-04-15 08:54 | Progress Note-Cardiology ---
Cardiology SOAP Progress Note Subjective: Sitting up in a chair at the bedside. No c/o CP, SOB, palpitations, syncope or near syncope. Feels LE edema has improved. Objective: I&O/Vital Signs Vital Sign - Last 12Hours 04/15/16 04/15/16 04/15/16 04/15/16 00:59 04:00 07:00 07:32 Temp 97.0 Pulse 59 60 59 Resp 18 B/P 123/53 Pulse Ox 95 95 O2 Delivery Room Air 04/15/16 08:00 Temp 97.4 Pulse 60 Resp 20 B/P 109/62 Pulse Ox 99 O2 Delivery Room Air Intake and Output 04/15/16 00:00 Intake Total 2280 ml Output Total 725 ml Balance 1555 ml Weight (Pounds): 162 Weight (Ounces): 0.0 Weight (Calculated Kilograms): 73.417103 Constitutional: AAO x 3 well-developed well-nourished Respiratory: No accessory muscle use, other (good bilat air entry, diminshed at the bases) Cardiovascular: regular rate-rhythmNo JVD, S1 and S2 Gastrointestional: No tender, softNo guarding, No rebound, audible bowel sounds Extremities: No clubbing, No cyanosis, significant edema (2+ bilateral leg edema) Neurologic/Psychiatric: oriented x 3 grossly intact power is 5/5 both on sides Skin: No rash on exposed areas, No ulcerations on exposed areas Results/Procedures: Labs Laboratory Tests 04/14/16 16:16: Glucometer 226H 04/14/16 21:02: Glucometer 177H 04/15/16 04:47: Anion Gap 11, BUN/Creatinine Ratio 36, Basophils # (Auto) 0.0, Basophils (%) ( Auto) 0, Blood Urea Nitrogen 61H, Calcium Level 9.0, Carbon Dioxide Level 21, Chloride Level 103, Creatinine 1.70H, Eosinophils # (Auto) 0.0, Eosinophils (%) (Auto) 1, Estimat Glomerular Filtration Rate 39, Glucose Level 129H, Hematocrit 30L, Hemoglobin 9.6L, Lymphocytes # (Auto) 0.6L, Lymphocytes (%) (Auto) 13, Magnesium Level 2.1, Mean Corpuscular Hemoglobin 28, Mean Corpuscular Hemoglobin Concent 32, Mean Corpuscular Volume 86, Mean Platelet Volume 11.5H, Monocytes # (Auto) 0.7, Monocytes (%) (Auto) 14H, Neutrophils # (Auto) 3.2, Neutrophils (%) (Auto) 71, Platelet Count 162, Potassium Level 4.8, Red Blood Count 3.46L, Red Cell Distribution Width 16.5H, Sodium Level 135, White Blood Count 4.5 A/P: Assessment: Acute on chronic diastolic CHF - clinically improving Leg edema in part due to venous insufficiency UTI - medical services managing Pneumonia - medical services managing Non-syncopal fall with generalized weakness PAF, as documented on pacemaker interrogation of 02/27/16, currently in a-fib with a paced ventricular rhythm 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 The pacemaker is working normally per interrogation carried out on 02/27/16 Vertebrobasilar insufficiency, which has been followed by his Neurologist, Dr. Aguirre. H/o possible postural hypotension due to the patient's medication Echo of 04/08/[address] Blue: Biventricular systolic function is normal with an estimated left ventricular ejection fraction 65%. 2-D viewing does suggest underlying significant diastolic left ventricular dysfunction. Mild biatrial chamber dilatation is present. Tricuspid insufficiency is present. On this technically difficult study severity is difficult to surmise. RV systolic pressure is moderately elevated, estimated at 45 to 50 mmHg. The inferior vena cava was dilated and collapsed less than 50% on inspiration, indicative of increased right atrial pressure. Coronary artery disease primary consisting of a chronically occluded and collateralized right coronary artery and moderate mid-vessel disease of the left anterior descending artery, unchanged on his most recent cardiac catheterization of 09/20/2008. MPI of January 2015 showed no evidence of significant myocardial ischemia or infarction. Inferior/diaphragmatic wall perfusion is fixed and appears to be due diaphragmatic attenuation. Normal regional wall motion. LVEF 73% Aorta u/s showed no aneurysm involving the mid or distal abdominal aorta on ([facility], [place], [place]) Symptoms of intermittent hematuria. This has been diagnosed to be prostate hypertrophy and is being followed by his urologist, Dr Daniel Hypertension, controlled. Hyperlipidemia being treated with simvastatin, being followed by Dr Clemente. Maturity onset diabetes mellitus. Tobaccoism from which he has been advised to refrain. Moderate right internal carotid arterial disease with a diameter stenosis of approximately 40%. Moderate disease of the left common carotid with a diameter stenosis of approximately 49%. Mild left internal carotid artery disease with a diameter stenosis of 1-40% per carotid ultrasound of 07-30-2012. U/S from 08-11 showed mild to mod mixed bilat plaque involving both common and internal carotid arteries, without evidence of hemodynamic significance Chronic right bundle branch block. History of pulmonary nodule, which has previously been followed by Dr. Giang at [facility], we have referred him to Dr. Mulligan. This has been followed by Dr Mulligan and Dr Clemente Chronic exertional dyspnea, clinically stable. Bilateral leg claudication which currently appears well controlled. History of right common angioplasty and right common iliac artery stenting with a 9 x 25 mm iliac artery stent followed by femoral-femoral crossover bypass grafting with a 7 mm straight EPTFE graft by Dr. Giang in March 2006. A Doppler study of February 2011 indicated bilateral aorto-femoral bypass grafting with patency of the visualized distal aspect of the graft at femoral anastomosis. There was considerable distal disease reported. He does report chronic 1-2 block leg claudication symptoms, but this unchanged Plan: * Give additional Lasix iv today d/t acute on chronic diastolic CHF * Cr improving * Blood pressure improved * Monitor labs Physician Assessment Physician Assessment Lungs: diminished air entry at the bases Cor: reg A&R * As documented in our note above CRIS MCKEON Apr 15, 2016 08:54 VELASQUEZ HANNON MD FACP FAC CCDS Apr 15, 2016 12:33
[2016-04-15] MEDS ORDERED: KCL 20 MEQ TAB (K-DUR) PO NR (09:00)
[2016-04-15] MEDS ORDERED: FUROSEMIDE 40 MG/4 ML INJ (LASIX) IVP NR (09:00)
--- NOTE | 2016-04-15 09:31 | Physical Therapy Daily Note ---
PT Daily Note-Current Subjective Patient is very agreeable to participate with PT. Pain Numeric Pain Scale: 0-No Pain Location: No Pain Reported Mental Status Patient Orientation: Normal For Age Attachments: IV Transfers Functional [place] Measure 0=Not Assessed/NA 4=Minimal Assistance 1=Total Assistance 5=Supervision or Setup 2=Maximal Assistance 6=Modified [place] 3=Moderate Assistance 7=Complete IndependenceIRFPAI Quality Coding Scale 6 Independent with activity with or without an assistive device 5 Patient requires set up or clean up by helper. Patient completes activity by themselves 4 Supervision or touching assist (CGA). [place] provide cues , steadying assist 3 The helper provides less than half the effort to complete the activity 2 The helper provides more than half the effort to complete the activity 1 Dependent. The helper does all the effort to complete an activity 7 Patient refused to complete or attempt activity 9 The patient did not perform the activity before the current illness or injury 88 Not attempted due to Medical conditions or safety concerns Transfers (B, C, W/C) (FIM): 6 Sit to/from Stand: 6 Sit to Stand (QC): 5 Patient is much improved with gross motor skills Gait Training Does the Patient Walk?: Yes Gait (FIM): 5 Distance (FIM): 3=150 ft Distance: 250' x 2 Walk 50 ft with 2 Turns(QC): 5 Walk 150 ft (QC): 5 Gait Level of Assist: 5 Gait Assistive Device: FWW 10% skilled verbal instruction for body placement in FWW Exercises Seated Therapy Exercises: Ankle pumps, Long arc quads, Hip flexion Seated Reps: 15 Standing: Heel/toe raises, 3 way Ex=Flex, Abd, Ext Standing Reps: 15 bilateral LE exercises to improve functional strength to safely return to home at a modified independent [facility]. Assessment Patient tolerated treatment well and is up in recliner with needs met. Plan dismissal 04/16/16 to home with home health intervention. PT Fashion Supervisor Goals Fashion Supervisor Goals PT Senior Living Goals Time Frame: Apr 18, 2016 Transfers (B,C,W/C) (FIM): 5 Sit to Lying (QC): 6 Lying-Sitting on Side/Bed(QC): 6 Sit to Stand (QC): 4 Rollin Gait (FIM): 4 Distance: 300' Walk 50ft with 2 Turns (QC): 4 Walk 150 ft (QC): 4 Gait Level of Assist: 4 (CGA) Gait Assistive Device: FWW PT Plan Treatment/Plan Treatment Plan: Continue Plan of Care Treatment Plan: Bed Mobility, Education, Functional Activity Kevan, Functional Strength, Gait, Safety, Therapeutic Exercise, Transfers Treatment Duration: Apr 18, 2016 Visits Per Week: 5-6 Minutes/Day (M-F): 15-30 Minutes/Day (Sat/Siddiqui): 15-30 Safety Risks/Education Patient Education: Transfer Techniques, Safety Issues Teaching Recipient: Patient Teaching Methods: Discussion Response to Teaching: Verbalize Understanding Discharge Recommendations Therapy D/C Recommendations: Physical Therapy Home Care Time/GCodes Time In: 906 Time Out: 929 Total Billed Treatment Time: 23 Total Billed Treatment 1 visit GT 15 min EX 8 min SRI ABDI PT Apr 15, 2016 09:31
[2016-04-15] MEDS: sitaGLIPtin 50 MG (JANUVIA) TAB PO SCH (10:36)
[2016-04-15] MEDS: MENTHOL/ZINC OXIDE (CALMOSEPTINE) 113 GM TUBE TOP SCH ×2 (10:36→21:01)
[2016-04-15] MEDS: ASPIRIN E.C. 81 MG (ECOTRIN) TAB PO SCH (10:36)
[2016-04-15] MEDS: FINASTERIDE (PROSCAR) 5 MG TAB PO SCH (10:37)
[2016-04-15] MEDS: APIXABAN 5 MG (ELIQUIS) TABLET PO SCH ×2 (10:37→21:01)
[2016-04-15] MEDS: PIOGLITAZONE 30MG (ACTOS) TAB PO SCH (10:37)
[2016-04-15] MEDS: FUROSEMIDE 40 MG (LASIX) TAB PO SCH (10:37)
[2016-04-15] MEDS: LACTATED RINGERS 1,000 ML IV SCH (10:38)
[2016-04-15] MEDS: ACETAMINOPHEN 325 MG TABLET/CAPLET (TYLENOL) PO PRN (10:45)
[2016-04-15 12:00] VITALS: BP 136/70
--- NOTE | 2016-04-15 12:52 | Progress Note (SOAP) ---
Subjective Subjective/Events-last exam Fwup Pneumonia, UTI, weakness with falls, urinary retention, Hypertension, DM II. Getting stronger. GEOVANNI hose on with legs elevated in chair. Objective Exam Vital Signs Date Time Temp Pulse Resp B/P Pulse Ox O2 Delivery O2 Flow Rate FiO2 04/15/16 08:00 97.4 60 20 109/62 99 Room Air 04/15/16 07:32 95 04/15/16 07:00 59 04/15/16 04:00 97.0 60 18 123/53 95 Room Air 04/15/16 00:59 59 04/15/16 00:00 98.0 60 18 105/65 97 Room Air 04/14/16 20:00 Room Air 04/14/16 19:45 97.3 60 18 127/69 98 Room Air 04/14/16 19:00 60 04/14/16 16:15 97.8 60 20 106/45 90 Room Air 04/14/16 15:26 98 04/14/16 13:00 59 I & O 04/15/16 07:00 Intake Total 2380 ml Output Total 1550 ml Balance 830 ml Capillary Refill : General Appearance: No Apparent Distress Neck: Supple Respiratory: Lungs Clear Cardiovascular: Regular Rate, Rhythm Systolic Murmur Gallop/S3 Gastrointestinal: normal bowel sounds non tender soft Extremity: Non Tender No Calf Tenderness Pedal Edema (2 plus) Neurologic/Psychiatric: Alert Oriented x3 Results Lab Laboratory Tests 04/14/16 16:16: Glucometer 226H 04/14/16 21:02: Glucometer 177H 04/15/16 04:47: Anion Gap 11, BUN/Creatinine Ratio 36, Basophils # (Auto) 0.0, Basophils (%) ( Auto) 0, Blood Urea Nitrogen 61H, Calcium Level 9.0, Carbon Dioxide Level 21, Chloride Level 103, Creatinine 1.70H, Eosinophils # (Auto) 0.0, Eosinophils (%) (Auto) 1, Estimat Glomerular Filtration Rate 39, Glucose Level 129H, Hematocrit 30L, Hemoglobin 9.6L, Lymphocytes # (Auto) 0.6L, Lymphocytes (%) (Auto) 13, Magnesium Level 2.1, Mean Corpuscular Hemoglobin 28, Mean Corpuscular Hemoglobin Concent 32, Mean Corpuscular Volume 86, Mean Platelet Volume 11.5H, Monocytes # (Auto) 0.7, Monocytes (%) (Auto) 14H, Neutrophils # (Auto) 3.2, Neutrophils (%) (Auto) 71, Platelet Count 162, Potassium Level 4.8, Red Blood Count 3.46L, Red Cell Distribution Width 16.5H, Sodium Level 135, White Blood Count 4.5 Assessment/Plan Assessment/Plan Assess & Plan/Chief Complaint 1. Pneumonia--improved, Off abx 2. UTI--resolved 3. Edema--appears dependant so continue GEOVANNI hose and elevate LEs 4. Acute Renal Insufficiency--appears to be dehydration as gentle IV rehydration has improved Cr so will decrease IVF rate and recheck in AM 5. Hypertension--stable 6. DMII--continue SSI 7. Weakness--improving 8. BPH/Urinary Retention--discussed TURP at later date Diagnosis/Problems: GLADYS ORONA DO Apr 15, 2016 12:52 pm
--- NOTE | 2016-04-15 13:59 | Occupational Ther Daily Note ---
OT Current Status-Daily Note Subjective Pt seen in room, on BSC, BM everywhere. No pain reported. Appearance Alert, cooperative Mental Status/Objective Functional [place] Measure 0=Not Assessed/NA 4=Minimal Assistance 1=Total Assistance 5=Supervision or Setup 2=Maximal Assistance 6=Modified [place] 3=Moderate Assistance 7=Complete [place] ADL-Treatment Pt needed CGA to stand, balance on FWW, while he was cleaned up after BM which was on floor, BSC, and on pt. GEOVANNI hose and slipper socks removed due to being soiled. Pt walked SBA, FWW to bed and was incontinent of stool again. He reported that he doesn't need any help feeding himself or brushing his teeth ( setup). One person help with hygiene (he used urinal), CGA toilet transfer. Pt left up in bed, all needs met, to elevate his legs for reapplication of GEOVANNI hose by nursing. Functional [place] Measure 0=Not Assessed/NA 4=Minimal Assistance 1=Total Assistance 5=Supervision or Setup 2=Maximal Assistance 6=Modified [place] 3=Moderate Assistance 7=Complete IndependenceIRFPAI Quality Coding Scale 6 Independent with activity with or without an assistive device 5 Patient requires set up or clean up by helper. Patient completes activity by themselves 4 Supervision or touching assist (CGA). [place] provide cues , steadying assist 3 The helper provides less than half the effort to complete the activity 2 The helper provides more than half the effort to complete the activity 1 Dependent. The helper does all the effort to complete an activity 7 Patient refused to complete or attempt activity 9 The patient did not perform the activity before the current illness or injury 88 Not attempted due to Medical conditions or safety concerns Eating (FIM): 6 Eating (QC): 6 Grooming (FIM): 5 (setup) Oral Hygiene (QC): 5 Toileting Hygiene (QC): 3 Toileting (FIM): 3 (Hygiene) Toilet/Commode Transfer (FIM): 4 (CGA) Toilet Transfer (QC): 4 (CGA) Education OT Patient Education: Modified ADL techniques, Transfer techniques Teaching Recipient: Patient Teaching Methods: Demonstration Response to Teaching: Return Demonstration OT Short Term Goals Short Term Goals 1=Demonstrate adherence to instructed precautions during ADL tasks. 2=Patient will verbalize/demonstrate understanding of assistive devices/ modifications for ADL. 3=Patient will improve strength/tolerance for activity to enable patient to perform ADL's. OT Lace Burn Out Tender Goals Long-Term Goals Time Frame: Apr 25, 2016 Eating (FIM): 6 Eating (QC): 6 Oral Hygiene (QC): 6 Grooming(FIM): 6 Toileting Hygiene (QC): 5 Bathing(FIM): 5 Upper Body Dressing(FIM): 5 Lower Body Dressing(FIM): 5 Toileting(FIM): 5 Toilet/Commode Transfer(FIM): 5 Toilet/Commode Transfer (QC): 5 Additional Goals: 1-Demonstrate ADL Tasks, 2-Verbalize Understanding, 3- ImproveStrength/Kevan 1=Demonstrate adherence to instructed precautions during ADL tasks. 2=Patient will verbalize/demonstrate understanding of assistive devices/ modifications for ADL. 3=Patient will improve strength/tolerance for activity to enable patient to perform ADL's. OT Education/Plan Problem List/Assessment Pt to benefit from skilled OT intervention for ADL training, transfers, strengthening, and home safety education to maximize level of function and allow safe discharge. Discharge Recommendations Plan/Recommendations: Continue POC Treatment Plan/Plan of Care Patient would benefit from OT for education, treatment and training to promote independence in ADL's, mobility, safety and/or upper extremity function for ADL' s. Plan of Care: ADL Retraining, Functional Mobility, UE Funct Exercise/Act Treatment Duration: Apr 25, 2016 Visits Per Week: 5 Agreement: Yes Rehab Potential: Fair Time/GCodes Start Time: 13:30 Stop Time: 13:50 Total Time Billed (hr/min): 20 Billed Treatment Time visit, 20 minutes ADL CHUCK LENZ OT Apr 15, 2016 13:59
--- NOTE | 2016-04-15 14:31 | Physical Therapy Progress Note ---
Therapy Progress Note Patient declined p.m. treatment due to multiple incontinence of BM. PT to resume in a.m. 1 ref SRI ABDI PT Apr 15, 2016 14:31
[2016-04-15 16:06] VITALS: BP 114/53
[2016-04-15 20:00] VITALS: BP 108/56
[2016-04-15] MEDS: SIMvastatin 40 MG (ZOCOR) TAB PO SCH (21:00)
[2016-04-15] MEDS: ALFUZOSIN HCL 10 MG TAB (UROXATRAL) PO SCH (21:00)
[2016-04-16] VITALS: BP 142/63
[2016-04-16 04:00] VITALS: BP 107/66
[2016-04-16] MEDS: LACTATED RINGERS 1,000 ML IV SCH (05:21)
[2016-04-16] MEDS: CATHETER FLUSH 10 ML SYR IV SCH (05:22)
[2016-04-16] MEDS: KCL 20 MEQ TAB (K-DUR) PO SCH (05:22)
[2016-04-16 05:27] LABS: CALCIUM 8.6 MG/DL (8.5-10.1); CREATININE SERUM 1.72 MG/DL (0.60-1.30); MAGNESIUM 1.9 MG/DL (1.8-2.4); POTASSIUM 4.8 MMOL/L (3.6-5.0)
[2016-04-16] MEDS: inSUlin (REGULAR) HUMAN 1 UNIT/0.01 ML (CHARGE PER UNIT) SC SCH (05:41)
[2016-04-16] MEDS: PIOGLITAZONE 30MG (ACTOS) TAB PO SCH (07:23)
[2016-04-16] MEDS: FINASTERIDE (PROSCAR) 5 MG TAB PO SCH (07:23)
[2016-04-16] MEDS: sitaGLIPtin 50 MG (JANUVIA) TAB PO SCH (07:23)
[2016-04-16] MEDS: APIXABAN 5 MG (ELIQUIS) TABLET PO SCH (07:23)
[2016-04-16] MEDS: ASPIRIN E.C. 81 MG (ECOTRIN) TAB PO SCH (07:23)
[2016-04-16] MEDS: MENTHOL/ZINC OXIDE (CALMOSEPTINE) 113 GM TUBE TOP SCH (07:24)
[2016-04-16] MEDS: FUROSEMIDE 40 MG (LASIX) TAB PO SCH (07:24)
[2016-04-16] MEDS: RT-ALBUTEROL/IPRATROPIUM 3 ML (DUONEB) VIAL INH SCH (07:33)
--- NOTE | 2016-04-16 09:14 | Progress Note-Cardiology ---
Cardiology SOAP Progress Note Subjective: Sitting up in a chair at the bedside. States he feels better today. Wants to go home. No c/o CP, palpitations, syncope, dyspnea or near syncope. Feels swelling in legs is resolved. Objective: I&O/Vital Signs Vital Sign - Last 12Hours 04/16/16 04:00 Temp 98.0 Pulse 63 Resp 18 B/P 107/66 Pulse Ox 96 O2 Delivery Room Air Intake and Output 04/16/16 00:00 Intake Total 1580 ml Output Total 2250 ml Balance -670 ml Weight (Pounds): 166 Weight (Ounces): 0.0 Weight (Calculated Kilograms): 75.379236 Constitutional: AAO x 3 well-developed well-nourished Respiratory: No accessory muscle use, other (good bilat air entry, diminished RLL) Cardiovascular: regular rate-rhythmNo JVD, S1 and S2 Gastrointestional: No tender, softNo guarding, No rebound, audible bowel sounds Extremities: No clubbing, No cyanosis, No significant edema Neurologic/Psychiatric: oriented x 3 grossly intact power is 5/5 both on sides Skin: No rash on exposed areas, No ulcerations on exposed areas Results/Procedures: Labs Laboratory Tests 04/15/16 15:51: Glucometer 218H 04/15/16 20:43: Glucometer 183H 04/16/16 04:45: Anion Gap 9, BUN/Creatinine Ratio 32, Blood Urea Nitrogen 55H, Calcium Level 8.6 , Carbon Dioxide Level 23, Chloride Level 103, Creatinine 1.72H, Estimat Glomerular Filtration Rate 39, Glucose Level 195H, Magnesium Level 1.9, Potassium Level 4.8, Sodium Level 135 04/16/16 11:17: Glucometer 230H A/P: Assessment: Acute on chronic diastolic CHF - clinically improving Leg edema in part due to venous insufficiency UTI - medical services managing Pneumonia - medical services managing Non-syncopal fall with generalized weakness PAF, as documented on pacemaker interrogation of 02/27/16, currently in a-fib with a paced ventricular rhythm 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 The pacemaker is working normally per interrogation carried out on 02/27/16 Vertebrobasilar insufficiency, which has been followed by his Neurologist, Dr. Aguirre. H/o possible postural hypotension due to the patient's medication Echo of 04/08/[address] Blue: Biventricular systolic function is normal with an estimated left ventricular ejection fraction 65%. 2-D viewing does suggest underlying significant diastolic left ventricular dysfunction. Mild biatrial chamber dilatation is present. Tricuspid insufficiency is present. On this technically difficult study severity is difficult to surmise. RV systolic pressure is moderately elevated, estimated at 45 to 50 mmHg. The inferior vena cava was dilated and collapsed less than 50% on inspiration, indicative of increased right atrial pressure. Coronary artery disease primary consisting of a chronically occluded and collateralized right coronary artery and moderate mid-vessel disease of the left anterior descending artery, unchanged on his most recent cardiac catheterization of 09/20/2008. MPI of January 2015 showed no evidence of significant myocardial ischemia or infarction. Inferior/diaphragmatic wall perfusion is fixed and appears to be due diaphragmatic attenuation. Normal regional wall motion. LVEF 73% Aorta u/s showed no aneurysm involving the mid or distal abdominal aorta on ([place], [place]) Symptoms of intermittent hematuria. This has been diagnosed to be prostate hypertrophy and is being followed by his urologist, Dr Daniel Hypertension, controlled. Hyperlipidemia being treated with simvastatin, being followed by Dr Clemente. Maturity onset diabetes mellitus. Tobaccoism from which he has been advised to refrain. Moderate right internal carotid arterial disease with a diameter stenosis of approximately 40%. Moderate disease of the left common carotid with a diameter stenosis of approximately 49%. Mild left internal carotid artery disease with a diameter stenosis of 1-40% per carotid ultrasound of 07-30-2012. U/S from 08-11 showed mild to mod mixed bilat plaque involving both common and internal carotid arteries, without evidence of hemodynamic significance Chronic right bundle branch block. History of pulmonary nodule, which has previously been followed by Dr. Giang at [facility], we have referred him to Dr. Mulligan. This has been followed by Dr Mulligan and Dr Clemente. CT of showed 4mm RML nodule Chronic exertional dyspnea, clinically stable. Bilateral leg claudication which currently appears well controlled. History of right common angioplasty and right common iliac artery stenting with a 9 x 25 mm iliac artery stent followed by femoral-femoral crossover bypass grafting with a 7 mm straight EPTFE graft by Dr. Giang in March 2006. A Doppler study of February 2011 indicated bilateral aorto-femoral bypass grafting with patency of the visualized distal aspect of the graft at femoral anastomosis. There was considerable distal disease reported. He does report chronic 1-2 block leg claudication symptoms, but this unchanged Plan: * LE edema resolved * Blood pressure improved * Monitor labs as outpatient * Continue current medication regimen * Out pt f/u in 2 weeks * OK to discharge home from cardiac stand point * RLL decreased air entry with h/o RML pulmonary nodule seen on CT of the chest in 2012. Dr. Barrientos has spoken with Dr. Clemente. Physician Assessment Physician Assessment Lungs: dec bs at R base, and dullness to percussion Cor: reg A&R * As documented in our note above * I called Dr Clemente and discussed with her Mr aBr's R pulm lesion CRIS MCKEON NAIL MAKING MACHINE SETTER Apr 16, 2016 09:14 VELASQUEZ BARRIENTOS MD FACP FAC CCDS Apr 16, 2016 14:34
--- NOTE | 2016-04-16 10:23 | Diagnostic Imaging Report ---
PROCEDURE: CT chest without contrast. TECHNIQUE: Multiple contiguous axial images were obtained through the chest without the use of intravenous contrast. INDICATION: Cough. Right-sided chest pain. Suspect pneumonia. History of pulmonary nodule. COMPARISON: 11/16/2012 FINDINGS: Evaluation of lung watkins demonstrates small bilateral effusions, right larger than left. There is associated consolidative airspace disease within the lower margins of the right lower lobe and base of the right middle lobe. There is also asymmetric elevation of the right hemidiaphragm. Left lung is otherwise relatively clear. There is however, subpleural micronodule within the anterolateral margins of the left upper lobe measuring approximately 4 mm (image 22, series 2). This is stable compared to 11/16/2012. 4 mm subpleural micronodule is also noted within the lateral margins of the right midlung adjacent to the minor fissure (image 30, series 2). This too is stable. Evaluation of lung watkins is suboptimal secondary to motion artifact, but no other new pulmonary nodules or masses are seen. Cardiomediastinal structures show normal heart size. There is a small pericardial effusion. There is calcified aortic and coronary atherosclerosis. No pathologically enlarged or morphologically abnormal adenopathy is seen within the mediastinum, vivi, nor axilla. Left-sided pacemaker is noted. Bony structures show age-related degenerative changes. No acute abnormalities are seen. Included portions of the upper abdomen are unremarkable. IMPRESSION: 1. Small bilateral effusions, right greater than left. 2. Asymmetric airspace disease within the right middle and lower lobes. Findings are felt to most likely represent atelectasis given the asymmetry of effusion and asymmetric elevation of the right hemidiaphragm. Some underlying infiltrate, however, is not entirely excluded. Patient may be a candidate for thoracentesis. 3. Bilateral small pulmonary micronodules as described above. Again, these are stable compared to 11/16/2012. Dictated by: Dictated on workstation # [id number]
--- NOTE | 2016-04-16 11:55 | Physical Therapy Daily Note ---
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 Pt reports feeling good and ready to go home. PT helps pt with a couple of questions with Financial application. Pt also given pt education on discharge and knowing limits as well as staying healthy with regular Dr visits, eating healthy and Ex. Pain Numeric Pain Scale: 0-No Pain Location: No Pain Reported Mental Status Patient Orientation: Person, Place, Time, Situation Transfers Functional [place] Measure 0=Not Assessed/NA 4=Minimal Assistance 1=Total Assistance 5=Supervision or Setup 2=Maximal Assistance 6=Modified [place] 3=Moderate Assistance 7=Complete IndependenceIRFPAI Quality Coding Scale 6 Independent with activity with or without an assistive device 5 Patient requires set up or clean up by helper. Patient completes activity by themselves 4 Supervision or touching assist (CGA). [place] provide cues , steadying assist 3 The helper provides less than half the effort to complete the activity 2 The helper provides more than half the effort to complete the activity 1 Dependent. The helper does all the effort to complete an activity 7 Patient refused to complete or attempt activity 9 The patient did not perform the activity before the current illness or injury 88 Not attempted due to Medical conditions or safety concerns Weight Bearing Weight Bearing Restriction: Full Weight Bearing Location Restriction: LE Bilateral Treatments Pt receives pt education as stated above about getting self healthy and injury free. Pt was left with all needs met at end of tx. Assessment Current Status: Good Progress Pt is ready to return home and get back to living normal. PT Care Home Goals Tag Clerk Goals PT Tag Clerk Goals Time Frame: Apr 18, 2016 Transfers (B,C,W/C) (FIM): 5 Sit to Lying (QC): 6 Lying-Sitting on Side/Bed(QC): 6 Sit to Stand (QC): 4 Rollin Gait (FIM): 4 Distance: 300' Walk 50ft with 2 Turns (QC): 4 Walk 150 ft (QC): 4 Gait Level of Assist: 4 (CGA) Gait Assistive Device: FWW PT Plan Treatment/Plan Treatment Plan: Continue Plan of Care Treatment Plan: Bed Mobility, Education, Functional Activity Kevan, Functional Strength, Gait, Safety, Therapeutic Exercise, Transfers Treatment Duration: Apr 18, 2016 Visits Per Week: 5-6 Minutes/Day (M-F): 15-30 Minutes/Day (Sat/Siddiqui): 15-30 Safety Risks/Education Patient Education: Gait Training, Transfer Techniques, Correct Positioning, Disease Process, Safety Issues Teaching Recipient: Patient Teaching Methods: Discussion Response to Teaching: Verbalize Understanding Time/GCodes Time In: 830 Time Out: 838 Total Billed Treatment Time: 8 Total Billed Treatment visit, FA (8m) BRANDON BLACK PTA Apr 16, 2016 11:55
--- NOTE | 2016-04-16 11:56 | Discharge Inst-Simple/Standard ---
Discharge Inst-Standard Discharge Medications New, Converted or Re-Newed RX: Other Patient Instructions/Follow Up Plan of Care/Instructions/FU: Fwup with me in 1 week Activity as Tolerated: Yes Discharge Diet: ADA Diet, Cardiac Diet GLADYS ORONA DO Apr 16, 2016 11:56
[2016-04-16 13:00] VITALS: BP 108/66
--- NOTE | 2016-04-16 15:20 | Therapy Team Discharge Summary ---
Therapy Discharge Summary Discharge Recommendations Date of Discharge Therapy D/C Recommendations: Physical Therapy Home Care Occupational Therapy Pt admitted to [facility] following acute hospitalization for fall and weakness. On admission pt required minimal assistance for lower body dressing and transfers. Skilled OT treatment focused on ADL training, transfers, and strengthening. At discharge pt is completing transfers with CGA, toileting with moderate assistance, feeding with modified independence, and grooming with set up. Pt met goals for feeding, but did not meet other goals. Pt discharged home. Will D/C SWB OT at this time. PT Residential Goals Convenience Store Manager Goals PT Residential Goals Time Frame: Apr 18, 2016 Transfers (B,C,W/C) (FIM): 5 Sit to Lying (QC): 6 Lying-Sitting on Side/Bed(QC): 6 Sit to Stand (QC): 4 Rollin Gait (FIM): 4 Distance: 300' Walk 50ft with 2 Turns (QC): 4 Walk 150 ft (QC): 4 Gait Level of Assist: 4 (CGA) Gait Assistive Device: FWW OT Residential Goals Residential Goals Time Frame: Apr 25, 2016 Eating (FIM): 6 Eating (QC): 6 Oral Hygiene (QC): 6 Grooming(FIM): 6 Toileting Hygiene (QC): 5 Bathing(FIM): 5 Upper Body Dressing(FIM): 5 Lower Body Dressing(FIM): 5 Toileting(FIM): 5 Toilet/Commode Transfer(FIM): 5 Toilet/Commode Transfer (QC): 5 Additional Goals: 1-Demonstrate ADL Tasks, 2-Verbalize Understanding, 3- ImproveStrength/Kevan 1=Demonstrate adherence to instructed precautions during ADL tasks. 2=Patient will verbalize/demonstrate understanding of assistive devices/ modifications for ADL. 3=Patient will improve strength/tolerance for activity to enable patient to perform ADL's. BETHANY FENG OT Apr 16, 2016 15:20
--- NOTE | 2016-04-21 09:17 | Therapy Team Discharge Summary ---
Therapy Discharge Summary Discharge Recommendations Date of Discharge Apr 16, 2016 at 13:00 Therapy D/C Recommendations: Physical Therapy Home Care Physical Therapy This patient has been seen by skilled PT services post fall at home to work on functional strength and mobility. Upon admit, he required assist with gait and transfers and at discharge, he was mod indep with transfers and SBA with gait for 250ft with FWW. He has made significant gains and met goals set at evaluation. Treatment consisted of functional strength, gait, transfers and safety education. Will dc at this time with plan to discharge home. PT [facility] Goals Systems Consultant Goals PT [facility] Goals Time Frame: Apr 18, 2016 Transfers (B,C,W/C) (FIM): 5 (exceeded; scored 6) Sit to Lying (QC): 6 (met scored 6) Lying-Sitting on Side/Bed(QC): 6 (met scored 6) Sit to Stand (QC): 4 (met, scored 6) Rollin (met, scored 6) Gait (FIM): 4 (met, scored 5) Distance: 300' Walk 50ft with 2 Turns (QC): 4 (met, scored 5) Walk 150 ft (QC): 4 (met, scored 5) Gait Level of Assist: 4 (CGA) Gait Assistive Device: FWW OT [facility] Goals Systems Consultant Goals Time Frame: Apr 25, 2016 Eating (FIM): 6 Eating (QC): 6 Oral Hygiene (QC): 6 Grooming(FIM): 6 Toileting Hygiene (QC): 5 Bathing(FIM): 5 Upper Body Dressing(FIM): 5 Lower Body Dressing(FIM): 5 Toileting(FIM): 5 Toilet/Commode Transfer(FIM): 5 Toilet/Commode Transfer (QC): 5 Additional Goals: 1-Demonstrate ADL Tasks, 2-Verbalize Understanding, 3- ImproveStrength/Kevan 1=Demonstrate adherence to instructed precautions during ADL tasks. 2=Patient will verbalize/demonstrate understanding of assistive devices/ modifications for ADL. 3=Patient will improve strength/tolerance for activity to enable patient to perform ADL's. HANNAH DUARTE PT Apr 21, 2016 09:17
--- NOTE | 2016-04-30 17:57 | Discharge Summary ---
Diagnosis/Chief Complaint Date of Admission Apr 11, 2016 at 12:49 Date of Discharge Apr 16, 2016 at 13:00 Discharge Date: Apr 16, 2016 Admission Diagnosis Admission Diagnosis 1. Acute UTI--improved 2. Fall--due to weakness 3. Weakness--improved 4. Pulmonary Edema--Acute Combined Diastolic and Systolic CHF 5. Diabetes mellitus II 6. Hypertension 7. History of CAD and PAD 8. Pneumonia--improved, atelectesis in right lower lobe 9. COPD--stable 10. Chronic Atrial Fibrillation 11. BPH with urinary retention Discharge Diagnosis 1. Acute UTI--improved 2. Fall--due to weakness 3. Weakness--improved 4. Pulmonary Edema--Acute Combined Diastolic and Systolic CHF 5. Diabetes mellitus II 6. Hypertension 7. History of CAD and PAD 8. Pneumonia--improved, atelectesis in right lower lobe 9. COPD--stable 10. Chronic Atrial Fibrillation 11. BPH with urinary retention Discharge Summary Hospital Course Hospital Course This is a 76 year old male who was initially admitted to acute care after a fall. He was treated for a UTI as well as pneumonia. He was transferred to SWING bed to continue IV antibiotics for his UTI and pneumonia and for further strengthening with PT and OT. He was continued on Levaquin and cefepime. His urine culture came back negative. His CXR continued to show RLL infiltrate vs atelectesis so a CT scan of the chest was performed which verified atelectesis. He had been started on incentive spirometry during his acute care stay and this was continued on SWING bed. He worked with PT and OT and was up ambulating with a walker prior to discharge and felt much stronger. It was decided he could be discharged home with home health for nursing and PT. Procedures None. Consultations Dr. Barrientos Discharge Physical Examination Allergies: Coded Allergies: No Known Drug Allergies (Unverified , 06/02/10) General Appearance: Alert, Oriented X3, Cooperative, No Acute Distress Respiratory: Clear to Auscultation Cardiovascular: Other (irregular) Abdominal: Normal Bowel Sounds, Soft, No Tenderness Extremities: No Clubbing, No Cyanosis, No Edema Neuro: Other (using walker) Psych/Mental Status: Mental Status NL, Mood NL Discharge Home Medications Reviewed and agree with Discharge Medication list on patient's Discharge Instruction sheet Instructions to Patient/Family Please see electonic discharge instructions given to patient. GLADYS ORONA DO Apr 30, 2016 17:57
== END 2016-04-16 13:00 | disposition home or self-care (01) | DRG 193 ==
LOC: 4TH 12:49
PROVIDERS: ADMIT Family Medicine; ATTEND Family Medicine
DX: J18.9 Pneumonia, unspecified organism (principal); N39.0 Urinary tract infection, site not specified; I11.0 Hypertensive heart disease with heart failure; I50.41 Acute combined systolic (congestive) and diastolic (congestive) heart failure; I48.0 Paroxysmal atrial fibrillation; E11.51 Type 2 diabetes mellitus with diabetic peripheral angiopathy without gangrene; I25.10 Atherosclerotic heart disease of native coronary artery without angina pectoris; N40.1 Benign prostatic hyperplasia with lower urinary tract symptoms; R33.8 Other retention of urine; R31.9 Hematuria, unspecified; E78.5 Hyperlipidemia, unspecified; F17.210 Nicotine dependence, cigarettes, uncomplicated; I70.213 Atherosclerosis of native arteries of extremities with intermittent claudication, bilateral legs; R53.1 Weakness; E86.0 Dehydration; R60.0 Localized edema; Z95.0 Presence of cardiac pacemaker; Z95.820 Peripheral vascular angioplasty status with implants and grafts; Z91.81 History of falling
CPT/HCPCS: 36415; 71020; 71250; 80048; 81000; 82962; 83735; 85025; 93005; 94640; 94664; 94760

== ENCOUNTER 2016-04-19 17:14 | Emergency (ER) | payer MEDICARE ==
[~2016-04-19] VITALS: Ht 162.6 cm; Wt 72.6 kg
[~2016-04-19 17:14] MED LIST changes: +DEXTROSE 50% 50 ML (IMS) SYR ONE
--- OUTSIDE RECORDS SUMMARY | 2016-04-19 17:18 | XMS REPORT | Continuity of Care Document ---
Author Author [facility] Organization [facility] Address Unknown Phone Unavailable Care Team Providers Care Sausage Linker Name Role Phone GLADYS ROONA DO PCP Insurance Providers Payer Name Policy Number Subscriber Name Relationship s Medicare [id number] Jn Lee 19 Self / Same As [...] - 99.5) 04/11/2016 8:15am Temperature (Calculated Celsius) 35.75397 degrees C (36.4 - 37.5) 04/11/2016 8:15am [...] 4.00 inches 04/07/2016 5:40pm Height (Calculated Centimeters) 162.125778 cm 04/07/2016 5:40pm Weight (Pounds) 162 pounds 04/07/2016 5:40pm Weight (Ounces) 0.0 oz 04/07/2016 5:40pm Weight (Calculated Grams) 96225.97 gm 04/07/2016 5:40pm Weight (Calculated Kilograms) 73.855864 kilograms 04/07/2016 5:40pm Calculated BMI 27.8 04/07/2016 [...] Discharge/Depart Date Attending Provider Discharged Inpatient [facility] 04/07/16 3:13pm 12:49pm GLADYS ORONA DO Registered Clinic [facility] 03/25/16 11:12am JESSIE SY MD Recent Diagnosis Fall at home General weakness Urinary tract infection
--- NOTE | 2016-04-19 17:46 | ED General ---
General Chief Complaint: Glucose Problems Stated Complaint: UNRESPONSIVE Source of Information: Patient, EMS Exam Limitations: No Limitations (BENITA MAJANO MD) History of Present Illness Time Seen by Provider: 17:44 Initial Comments This 76-year-old white male presents after having been found unresponsive by EMS shortly prior to presentation to the emergency department. The patient's glucose was low enough that it did not register on the glucometer. The patient roused with D50 in route and is now awake and alert. The patient relates that the reason he had his episode is that he has not eaten today. The patient's diabetes is controlled with oral agents. He is under the care of Dr. Clemente. The patient denies associated fever, chills, headache, stiff neck, cough, vomiting, or diarrhea. Upon arrival in the emergency department patient's glucose was 130. (BENITA MAJANO MD) Allergies and Home Medications Allergies Coded Allergies: No Known Drug Allergies (Unverified , 06/02/10) Home Medications Apixaban 5 Mg Tablet 5 MG PO BID (Reported) Aspirin 81 Mg Tablet.dr 81 MG PO DAILY (Reported) Cephalexin 500 Mg Tablet #14 500 MG PO BID Prescribed by: DEBI VELEZ on 04/19/161999 Finasteride 5 Mg Tablet 5 MG PO DAILY (Reported) Furosemide 40 Mg Tablet 40 MG PO Q48H PRN PRN SWELLING (Reported) Glimepiride 2 Mg Tablet 4 MG PO DAILY (Reported) TAKES 2 (2MG) TABLETS Glimepiride 2 Mg Tablet 2 MG PO HS (Reported) Metoprolol Succinate 25 Mg Tab.sr.24h 25 MG PO HS (Reported) LAST FILLED #30 12-5-16 Pioglitazone HCl 30 Mg Tablet 30 MG PO DAILY (Reported) Potassium Chloride 10 Meq Tab.er.prt 10 MEQ PO Q48H PRN PRN WHEN TAKING FUROSEMIDE (Reported) Simvastatin 40 Mg Tablet 40 MG PO HS (Reported) Sitagliptin Phosphate 100 Mg Tablet 100 MG PO DAILY (Reported) Tamsulosin HCl 0.4 Mg Cap.er.24h 0.4 MG PO HS (Reported) Constitutional: No chills, No fever EENTM: No ear pain Respiratory: No cough Cardiovascular: No chest pain Gastrointestinal: No abdominal pain, No diarrhea, No nausea, No vomiting Genitourinary: No dysuria, No frequency Musculoskeletal: No back pain Skin: No rash Psychiatric/Neurological: No Symptoms Reported Hematologic/Lymphatic: No Symptoms Reported (BENITA MAJANO MD) Past Qjnilrt-Rhshgd-Mzxcmb Hx Patient Social History Type Used: Cigarettes Recent Hopitalizations: No (BENITA MAJANO MD) Seasonal Allergies Seasonal Allergies: No (BENITA MAJANO MD) Surgeries HX Surgeries: No (BENITA MAJANO MD) Cardiovascular Hx Cardiac Disorders: Yes (PACEMAKER) Cardiac Disorders: Atrial Fibrillation (BENITA MAJANO MD) Neurological Hx Neurological Disorders: No (BENITA MAJANO MD) Genitourinary Hx Genitourinary Disorders: No Genitourinary Disorders: Prostate Problems (BENITA MAJANO MD) Gastrointestinal Hx Gastrointestinal Disorders: No (BENITA MAJANO MD) Musculoskeletal Hx Musculoskeletal Disorders: No Musculoskeletal Disorders: Degenerate Disk Disease (BENITA MAJANO MD) Endocrine Hx Endocrine Disorders: No (BENITA MAJANO MD) HEENT HX ENT Disorders: No Hearing Impairment: Hard of Hearing (BENITA MAJANO MD) Cancer Hx Cancer: No (BENITA MAJANO MD) Psychosocial Hx Psychiatric Problems: No (BENITA MAJANO MD) Blood Transfusions Hx Blood Disorders: No (BENITA MAJANO MD) Reviewed Nursing Assessment Reviewed/Agree w Nursing PMH: Yes (BENITA MAJANO MD) Physical Exam Vital Signs Vital Sign - Last 12Hours 04/19/16 17:51 Temp 98.1 Pulse 68 Resp 18 B/P 149/63 Pulse Ox 97 (DEBI VELEZ MD) Vital Signs Capillary Refill : (BENITA MAJANO MD) General Appearance: No Apparent Distress Chronically ill Eyes: Bilateral Eye Normal Inspection, Bilateral Eye PERRL HEENT: Normal ENT Inspection Neck: Normal Inspection Respiratory: Lungs Clear Cardiovascular: Regular Rate, Rhythm Gastrointestinal: Normal Bowel Sounds No Organomegaly No Pulsatile Mass Back: Normal Inspection Extremity: Normal Capillary Refill Normal Inspection Normal Range of Motion Non Tender Neurologic/Psychiatric: Alert Oriented x3 No Motor/Sensory Deficits Normal Mood/Affect (BENITA MAJANO MD) Progress/Results/Core Measures Results/Orders Lab Results Laboratory Tests Test 04/19/16 17:23 04/19/16 18:16 04/19/16 18:30 04/19/16 19:01 Range/Units Glucometer 129 H 83 70-110 MG/DL Alanine Aminotransferase (ALT/SGPT) 35 0-55 U/L Albumin 3.7 3.2-4.5 G/DL Alkaline Phosphatase 114 40-136 U/L Anion Gap 12 5-14 MMOL/L Aspartate Amino Transf (AST/SGOT) 30 5-34 U/L BUN/Creatinine Ratio 35 Basophils # (Auto) 0.0 0.0-0.1 10^3/uL Basophils (%) (Auto) 0 0-10 % Blood Urea Nitrogen 37 H 7-18 MG/DL Calcium Level 8.7 8.5-10.1 MG/DL Carbon Dioxide Level 23 21-32 MMOL/L Chloride Level 101 98-107 MMOL/L Creatinine 1.07 0.60-1.30 MG/DL Eosinophils # (Auto) 0.0 0.0-0.3 10^3/uL Eosinophils (%) (Auto) 0 0-10 % Estimat Glomerular Filtration Rate > 60 Glucose Level 70 70-105 MG/DL Hematocrit 28 L 40-54 % Hemoglobin 8.8 L 13.3-17.7 G/DL Hemoglobin A1c 6.0 4.5-6.2 % Lymphocytes # (Auto) 0.7 L 1.0-4.0 X 10^3 Lymphocytes (%) (Auto) 12 12-44 % Mean Corpuscular Hemoglobin 28 25-34 PG Mean Corpuscular Hemoglobin Concent 32 32-36 G/DL Mean Corpuscular Volume 87 80-99 FL Mean Platelet Volume 10.9 H 7.4-10.4 FL Monocytes # (Auto) 0.6 0.0-1.0 X 10^3 Monocytes (%) (Auto) 10 0-12 % Neutrophils # (Auto) 4.6 1.8-7.8 X 10^3 Neutrophils (%) (Auto) 77 H 42-75 % Platelet Count 182 130-400 10^3/uL Potassium Level 3.5 L 3.6-5.0 MMOL/L Red Blood Count 3.17 L 4.35-5.85 10^6/uL Red Cell Distribution Width 17.5 H 10.0-14.5 % Sodium Level 136 135-145 MMOL/L Total Bilirubin 0.9 0.1-1.0 MG/DL Total Protein 6.2 L 6.4-8.2 G/DL White Blood Count 6.0 4.3-11.0 10^3/uL Urine Bacteria TRACE /HPF Urine Bilirubin NEGATIVE NEGATIVE Urine Casts NONE /LPF Urine Clarity CLEAR Urine Color YELLOW Urine Crystals NONE /LPF Urine Culture Indicated YES Urine Glucose (UA) 2+ H NEGATIVE Urine Ketones 1+ H NEGATIVE Urine Leukocyte Esterase 1+ H NEGATIVE Urine Mucus NEGATIVE /LPF Urine Nitrite NEGATIVE NEGATIVE Urine Protein 3+ H NEGATIVE Urine RBC 50-100 H /HPF Urine RBC (Auto) 5+ H NEGATIVE Urine Specific [place] 1.015 L 1.016-1.022 Urine Squamous Epithelial Cells 2-5 /HPF Urine Urobilinogen NORMAL NORMAL MG/DL Urine WBC 10-25 H /HPF Urine pH 5 5-9 (DEBI VELEZ MD) Micro Results Microbiology 04/19/16 Urine Culture - Preliminary, Resulted (BENITA MAJANO MD) My Orders Orders-DEBI VELEZ MD Cephalexin Capsule (Keflex Capsule) (04/19/16 19:29) (DEBI VELEZ MD) Vital Signs/I&O Vital Sign - Last 12Hours 04/19/16 17:51 Temp 98.1 Pulse 68 Resp 18 B/P 149/63 Pulse Ox 97 (DEBI VELEZ MD) Progress Note : Time: 17:47 Progress Note Patient was awake and alert upon arrival in emergency department. Appropriate laboratory evaluation is undertaken. The patient had a meal ordered. (BENITA MAJANO MD) Progress Note : Progress Note 1800: The same care of the patient from Dr. Majano pending labs and UA. Patient did have medial ordered and is overall doing much better now. 1945: UTI noted. He did have this on previous hospitalization but culture was negative. With symptoms today, I believe it is reasonable to treat this as urinary tract infection. Keflex 500 mg by mouth given. We will continue his outpatient. Discharged home with return precautions. Patient verbalize understanding instructions and agreement with plan. Blood sugars are improved and are 85 currently. He tolerated meal well. Brother at bedside and he agrees with plan as well. (DEBI VELEZ MD) Departure Impression Impression: Primary Impression: Hypoglycemia associated with diabetes Additional Impression: Urinary tract infection Qualified Code: N30.00 - Acute cystitis without hematuria Disposition: HOME, SELF-CARE Condition: Improved Departure-Patient Inst. Decision time for Depature: 19:57 (DEBI VELEZ MD) Referrals: GLADYS CLEMENTE DO (PCP/Family) Primary Care Physician Patient Instructions: HYPOGLYCEMIA, Urinary Tract Infection, Adult (DC) Add. Discharge Instructions: All discharge instructions reviewed with patient and/or family. Voiced understanding. Eat regular diet and take a snack prior to bedtime. Take medications as directed. Follow-up with Dr. Clemente on Thursday. Drink plenty of fluids. Return for worse pain, fever, breathing problems, weakness or other concerns as needed. Scripts Cephalexin 500 Mg [id number] Mg PO BID #14 TAB Ref 0 Prov:DEBI VELEZ MD 04/19/16 Copy Copies To 1: GLADYS CLEMENTE MARK S MD Apr 19, 2016 17:46 DEBI VELEZ MD Apr 19, 2016 20:00
[2016-04-19 18:24] LABS: BASOPHILS % (AUTO) 0 % (0-10); EOSINOPHILS % (AUTO) 0 % (0-10); LYMPHOCYTES # (AUTO) 0.7 X 10^3 (1.0-4.0); LYMPHOCYTES % (AUTO) 12 % (12-44); MEAN CORPUSCULAR HEMOGLOBIN 28 PG (25-34); MEAN CORPUSCULAR HGB CONC 32 G/DL (32-36); MEAN CORPUSCULAR VOLUME 87 FL (80-99); MEAN PLATELET VOLUME 10.9 FL (7.4-10.4); MONOCYTES # (AUTO) 0.6 X 10^3 (0.0-1.0); MONOCYTES % (AUTO) 10 % (0-12); NEUTROPHILS # (AUTO) 4.6 X 10^3 (1.8-7.8); NEUTROPHILS % (AUTO) 77 % (42-75); PLATELET COUNT 182 10^3/uL (130-400); RED BLOOD COUNT 3.17 10^6/uL (4.35-5.85); RED CELL DISTRIBUTION WIDTH 17.5 % (10.0-14.5)
[2016-04-19 18:42] LABS: ALANINE AMINOTRANSFERASE 35 U/L (0-55); ALBUMIN 3.7 G/DL (3.2-4.5); ANION GAP 12 MMOL/L (5-14); ASPARTATE AMINO TRANSFERASE 30 U/L (5-34); BILIRUBIN,TOTAL 0.9 MG/DL (0.1-1.0); BLOOD UREA NITROGEN 37 MG/DL (7-18); BUN/CREATININE RATIO 35; CALCIUM 8.7 MG/DL (8.5-10.1); CARBON DIOXIDE 23 MMOL/L (21-32); CHLORIDE 101 MMOL/L (98-107); CREATININE SERUM 1.07 MG/DL (0.60-1.30); GFR ESTIMATED > 60; GLUCOSE 70 MG/DL (70-105); POTASSIUM 3.5 MMOL/L (3.6-5.0); SODIUM 136 MMOL/L (135-145); TOTAL PROTEIN 6.2 G/DL (6.4-8.2)
[2016-04-19 18:43] LABS: BILIRUBIN,URINE NEGATIVE (NEGATIVE); KETONES,URINE 1+ (NEGATIVE); LEUKOCYTE ESTERASE ,URINE 1+ (NEGATIVE); NITRITE,URINE NEGATIVE (NEGATIVE); PH,URINE 5 (5-9); PROTEIN,URINE 3+ (NEGATIVE); UROBILINOGEN,URINE NORMAL (NORMAL)
[2016-04-19] MEDS ORDERED: CEPHALEXIN 250 MG (KEFLEX) CAP PO STA (19:29)
[2016-04-19] MEDS ORDERED: CEPH500T PO (20:00)
[2016-04-19 20:13] VITALS: BP 131/48
[2016-04-28] MEDS ORDERED: FURO40TA4 PO (21:41)
[2016-04-28] MEDS ORDERED: POTA10TA36 PO (21:41)
[2016-04-28] MEDS ORDERED: PANT40TA3 PO (21:41)
== END 2016-04-19 20:13 | disposition home or self-care (01) ==
LOC: EDUNIT# 17:14 → ER 17:15
DX: E11.649 Type 2 diabetes mellitus with hypoglycemia without coma (principal); N39.0 Urinary tract infection, site not specified; I48.2 Chronic atrial fibrillation; Z79.84 Long term (current) use of oral hypoglycemic drugs; Z79.82 Long term (current) use of aspirin; Z79.899 Other long term (current) drug therapy; Z95.0 Presence of cardiac pacemaker
CPT/HCPCS: 36415; 80053; 81000; 82962; 83036; 85025; 87088

== ENCOUNTER 2016-04-21 10:37 | Inpatient (IN) | payer MEDICARE ==
[~2016-04-21] VITALS: Ht 162.6 cm; Wt 77.6 kg
[2016-04-21] VITALS (7 sets, daily range): BP systolic 126–171; BP diastolic 43–74
[~2016-04-21 10:37] MED LIST changes: +CEPH500T PO; -DEXTROSE 50% 50 ML (IMS) SYR ONE
--- OUTSIDE RECORDS SUMMARY | 2016-04-21 10:42 | XMS REPORT | Continuity of Care Document ---
Author Author [facility] Organization [facility] Address Unknown Phone Unavailable Care Team Providers Care Associate Professor Of Library Media Name Role Phone GLADYS ORONA DO PCP Insurance Providers Payer Name Policy Number Subscriber Name Relationship s Medicare [id number] Jn Lee 18 Self / Same As [...] - 99.5) 04/11/2016 8:15am Temperature (Calculated Celsius) 35.76289 degrees C (36.4 - 37.5) 04/11/2016 8:15am [...] 4.00 inches 04/07/2016 5:40pm Height (Calculated Centimeters) 162.042677 cm 04/07/2016 5:40pm Weight (Pounds) 162 pounds 04/07/2016 5:40pm Weight (Ounces) 0.0 oz 04/07/2016 5:40pm Weight (Calculated Grams) 73711.97 gm 04/07/2016 5:40pm Weight (Calculated Kilograms) 73.977377 kilograms 04/07/2016 5:40pm Calculated BMI 27.8 04/07/2016 [...] Discharge/Depart Date Attending Provider Discharged Inpatient [facility] 04/07/16 3:13pm 12:49pm GLADYS ORONA DO Registered Clinic [facility] 03/25/16 11:12am JESSIE SY MD Recent Diagnosis Fall at home General weakness Urinary tract infection
--- NOTE | 2016-04-21 10:55 | Diagnostic Imaging Report ---
Indication: Weakness, fall CT head without contrast The ventricles are normal in size, shape and position. There are no masses or hemorrhages. There are no extra-axial fluid collections. There is mild atrophy. There is some decreased density in the periventricular white matter both cerebral hemispheres. 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 There is no CT evidence for an acute infarct. Dictated by: Dictated on workstation # [id number]
--- NOTE | 2016-04-21 10:57 | Diagnostic Imaging Report ---
INDICATION: Fall. Possible stroke. Portable chest 10:48 AM. There is a dual-chamber pacemaker. There is a small right pleural effusion. There may be some right basilar infiltrate and/or atelectasis. IMPRESSION: Right basilar infiltrate and/or atelectasis with small right pleural effusion. This appears similar to exam dated 04/13/2016. Dictated by: Dictated on workstation # [id number]
[2016-04-21 11:04] LABS: BASOPHILS % (AUTO) 0 % (0-10); EOSINOPHILS % (AUTO) 0 % (0-10); LYMPHOCYTES # (AUTO) 0.8 X 10^3 (1.0-4.0); LYMPHOCYTES % (AUTO) 6 % (12-44); MEAN CORPUSCULAR HEMOGLOBIN 28 PG (25-34); MEAN CORPUSCULAR HGB CONC 32 G/DL (32-36); MEAN CORPUSCULAR VOLUME 89 FL (80-99); MEAN PLATELET VOLUME 10.4 FL (7.4-10.4); MONOCYTES # (AUTO) 0.5 X 10^3 (0.0-1.0); MONOCYTES % (AUTO) 4 % (0-12); NEUTROPHILS # (AUTO) 11.3 X 10^3 (1.8-7.8); NEUTROPHILS % (AUTO) 90 % (42-75); PLATELET COUNT 234 10^3/uL (130-400); RED BLOOD COUNT 2.85 10^6/uL (4.35-5.85); WHITE BLOOD COUNT 12.6 10^3/uL (4.3-11.0)
[2016-04-21] MEDS ORDERED: RT-ALBUTEROL/IPRATROPIUM 3 ML (DUONEB) VIAL INH ONE (11:15)
[2016-04-21 11:17] LABS: INR 1.4 (0.8-1.4); PROTHROMBIN TIME PATIENT 16.6 SEC (12.2-14.7)
[2016-04-21 11:20] LABS: ANISOCYTOSIS MARKED; BAND NEUTROPHILS 0 %; BASOPHILS % (MANUAL) 0 %; EOSINOPHILS % (MANUAL) 0 %; HYPOCHROMASIA SLIGHT; LYMPHOCYTES % (MANUAL) 10 %; NEUTROPHILS % (MANUAL) 89 %
[2016-04-21 11:26] LABS: ALANINE AMINOTRANSFERASE 32 U/L (0-55); ALBUMIN 3.5 G/DL (3.2-4.5); ANION GAP 15 MMOL/L (5-14); ASPARTATE AMINO TRANSFERASE 30 U/L (5-34); BILIRUBIN,TOTAL 1.1 MG/DL (0.1-1.0); BLOOD UREA NITROGEN 35 MG/DL (7-18); BUN/CREATININE RATIO 34; CALCIUM 8.4 MG/DL (8.5-10.1); CARBON DIOXIDE 18 MMOL/L (21-32); CHLORIDE 104 MMOL/L (98-107); CREATININE SERUM 1.02 MG/DL (0.60-1.30); GFR ESTIMATED > 60; GLUCOSE 74 MG/DL (70-105); POTASSIUM 3.9 MMOL/L (3.6-5.0); SODIUM 137 MMOL/L (135-145); TOTAL PROTEIN 5.9 G/DL (6.4-8.2)
[2016-04-21 11:36] LABS: TROPONIN I < 0.30 NG/ML (<0.30)
--- NOTE | 2016-04-21 11:50 | ED Neurological Problem ---
General Chief Complaint: Neuro-Stroke Like Symptoms Stated Complaint: FALL Nursing Triage Note: TO ROOM PER W/C ACCOMPIED BY FRIEND. WAS FOUND ON FLOOR THIS AM [facility]. MICHELLE REPORTS SLID OUT OF CHAIR. Nursing Sepsis Screen: No Definite Risk Source: patient, EMS, old records, caregiver Exam Limitations: no limitations History of Present Illness Time seen by provider: 10:38 Initial Comments This 76-year-old gentleman presents to the emergency room from home via EMS after being found on the floor in his home by a home physical therapist. He reportedly was incontinent of urine, had slurred speech, and was leaning to the right. Last known well time was sometime yesterday. He was seen in the emergency room on Thursday for hypoglycemia. He was felt to have urinary tract infection at that time as well and was started on Keflex. Report initially came from the nurse at [facility]. She reports his vital signs were stable. However his breathing seemed labored. The home health nurse stated he had recently been treated for pneumonia and urinary tract infection. Patient is fully alert and oriented on arrival with an NIH stroke score of zero. Stroke activation was paged because of concern for possible intracranial bleed and description of neurologic deficits by the home health nurse. Patient is on anticoagulation but states he has held the last 2 doses due to concern for possible GI bleed as he observed dark stools. Fingerstick blood sugar was 81. He has had frequent falls recently. Allergies and Home Medications Allergies Coded Allergies: No Known Drug Allergies (Unverified , 06/02/10) Home Medications Apixaban 5 Mg Tablet 5 MG PO BID (Reported) Aspirin 81 Mg Tablet.dr 81 MG PO DAILY (Reported) Cephalexin 500 Mg Capsule 7Days 500 MG PO BID (Reported) FILLED 04/19/16 #14 FOR A 7 DAY THERAPY Finasteride 5 Mg Tablet 5 MG PO DAILY (Reported) Furosemide 40 Mg Tablet 40 MG PO Q48H PRN PRN SWELLING (Reported) Glimepiride 2 Mg Tablet 4 MG PO DAILY (Reported) TAKES 2 (2MG) TABLETS Glimepiride 2 Mg Tablet 2 MG PO HS (Reported) Metoprolol Succinate 25 Mg Tab.sr.24h 25 MG PO HS (Reported) LAST FILLED #30 02-18-16 Pioglitazone HCl 30 Mg Tablet 30 MG PO DAILY (Reported) Potassium Chloride 10 Meq Tab.er.prt 10 MEQ PO Q48H PRN PRN WHEN TAKING FUROSEMIDE (Reported) Simvastatin 40 Mg Tablet 40 MG PO HS (Reported) Sitagliptin Phosphate 100 Mg Tablet 100 MG PO DAILY (Reported) Tamsulosin HCl 0.4 Mg Cap.er.24h 0.4 MG PO HS (Reported) Constitutional: see HPI weakness Eyes: No Symptoms Reported Ears, Nose, Mouth, Throat: no symptoms reported Respiratory: see HPI Cardiovascular: no symptoms reported Gastrointestinal: no symptoms reported Genitourinary: see HPI Musculoskeletal: no symptoms reported Skin: no symptoms reported Psychiatric/Neurological: See HPI Endocrine: No Symptoms Reported Hematologic/Lymphatic: No Symptoms Reported Past Xdyyqcr-Rwugno-Brwfad Hx Patient Social History Alcohol Use: Denies Use Recreational Drug Use: No Smoking Status: Former Smoker Type Used: Cigarettes Recent Foreign Travel: No Contact w/Someone Who Travel: No Recent Infectious Disease Expo: No Recent Hopitalizations: Yes Seasonal Allergies Seasonal Allergies: No Surgeries HX Surgeries: Yes Surgeries: Pacemaker Respiratory Hx Respiratory Disorders: Yes Respiratory Disorders: Pneumonia Cardiovascular Hx Cardiac Disorders: Yes (PACEMAKER, congestive heart failure) Cardiac Disorders: Atrial Fibrillation, Coronary Artery Disease, High Cholesterol, Hypertension Neurological Hx Neurological Disorders: No Reproductive System Hx Reproductive Disorders: No Genitourinary Hx Genitourinary Disorders: Yes Genitourinary Disorders: Prostate Problems Gastrointestinal Hx Gastrointestinal Disorders: No Musculoskeletal Hx Musculoskeletal Disorders: Yes Musculoskeletal Disorders: Degenerate Disk Disease Endocrine Hx Endocrine Disorders: Yes Endocrine Disorders: Diabetes, Non-Insulin dep HEENT HX ENT Disorders: Yes Hearing Impairment: Hard of Hearing Cancer Hx Cancer: No Psychosocial Hx Psychiatric Problems: No Integumentary HX Skin/Integumentary Disorder: No Blood Transfusions Hx Blood Disorders: Yes (anticoagulated for A. fib) Physical Exam Vital Signs Vital Sign - Last 12Hours 04/21/16 10:41 Temp 96.8 Pulse 60 Resp 18 B/P 126/47 Pulse Ox 97 O2 Delivery Room Air Capillary Refill : Less Than 3 Seconds General Appearance: WD/WN no apparent distress HEENT: PERRL/EOMI pharynx normal other (no teeth. Swelling of the eyelids) Neck: normal inspection Respiratory: lungs clear normal breath sounds accessory muscle use other ( forced expiration with accessory muscle use) Cardiovascular: no edema no murmur irregularly irregular Gastrointestinal: normal bowel sounds non tender soft Extremities: normal inspection no pedal edema Neurologic/Psychiatric: clinical fellow II-XII nml as tested no motor/sensory deficits alert normal mood/affect oriented x 3 Crainal Nerves: normal hearing normal speech PERRL Coordination/Gait: normal finger to nose Motor/Sensory: no motor deficit no sensory deficit no pronator drift Skin: normal color warm/dry ecchymosis (right lower chest reportedly from a fall 2 weeks ago) Stroke NIH Stroke Scale Assessment Level of Consciousness: 0=Alert Level of Consciousness-Questio: 0=Answers both month/age LOC Commands: 0=Performs both tasks Gaze: 0=Normal Visual Zamora: 0=No visual loss Facial Movement (Facial Paresi: 0=Normal symmetrical mnt Motor Function-Arms Right: 0=No drift Motor Function-Arms Left: 0=No drift Motor Function-Legs Right: 0=No drift Motor Function-Legs Left: 0=No drift Limb Ataxia: 0=Absent Sensory: 0=Normal:no loss Best Language: 0=No aphasia Dysarthria: 0=Normal Extinction & Inattention: 0=No abnormality NIH Stroke Scale Score: 0 Progress/Results/Core Measures Results/Orders Lab Results Laboratory Tests Test 04/21/16 10:44 04/21/16 10:58 04/21/16 12:03 04/21/16 13:14 Range/Units Glucometer 81 70-110 MG/DL Activated Partial Thromboplast Time 31 24-35 SEC Alanine Aminotransferase (ALT/SGPT) 32 0-55 U/L Albumin 3.5 3.2-4.5 G/DL Alkaline Phosphatase 106 40-136 U/L Anion Gap 15 H 5-14 MMOL/L Anisocytosis MARKED Aspartate Amino Transf (AST/SGOT) 30 5-34 U/L BUN/Creatinine Ratio 34 Band Neutrophils 0 % Basophils # (Auto) 0.0 0.0-0.1 10^3/uL Basophils % (Manual) 0 % Basophils (%) (Auto) 0 0-10 % Blood Urea Nitrogen 35 H 7-18 MG/DL Calcium Level 8.4 L 8.5-10.1 MG/DL Carbon Dioxide Level 18 L 21-32 MMOL/L Chloride Level 104 98-107 MMOL/L Creatinine 1.02 0.60-1.30 MG/DL D-Dimer 0.79 H 0.00-0.49 UG/ML Eosinophils # (Auto) 0.0 0.0-0.3 10^3/uL Eosinophils % (Manual) 0 % Eosinophils (%) (Auto) 0 0-10 % Estimat Glomerular Filtration Rate > 60 Glucose Level 74 70-105 MG/DL Hematocrit 25 L 40-54 % Hemoglobin 8.0 L 13.3-17.7 G/DL Hypochromasia SLIGHT INR Comment 1.4 0.8-1.4 Lymphocytes # (Auto) 0.8 L 1.0-4.0 X 10^3 Lymphocytes % (Manual) 10 % Lymphocytes (%) (Auto) 6 L 12-44 % Mean Corpuscular Hemoglobin 28 25-34 PG Mean Corpuscular Hemoglobin Concent 32 32-36 G/DL Mean Corpuscular Volume 89 80-99 FL Mean Platelet Volume 10.4 7.4-10.4 FL Monocytes # (Auto) 0.5 0.0-1.0 X 10^3 Monocytes % (Manual) 1 % Monocytes (%) (Auto) 4 0-12 % Neutrophils # (Auto) 11.3 H 1.8-7.8 X 10^3 Neutrophils % (Manual) 89 % Neutrophils (%) (Auto) 90 H 42-75 % Platelet Count 234 130-400 10^3/uL Potassium Level 3.9 3.6-5.0 MMOL/L Prothrombin Time 16.6 H 12.2-14.7 SEC Red Blood Count 2.85 L 4.35-5.85 10^6/uL Red Cell Distribution Width 18.0 H 10.0-14.5 % Sodium Level 137 135-145 MMOL/L Total Bilirubin 1.1 H 0.1-1.0 MG/DL Total Protein 5.9 L 6.4-8.2 G/DL Troponin I < 0.30 <0.30 NG/ML White Blood Count 12.6 H 4.3-11.0 10^3/uL B-Type Natriuretic Peptide 363.6 H <100.0 PG/ML C-Reactive Protein High Sensitivity 0.42 0.00-0.50 MG/DL Lactic Acid Level 3.5 *H 0.5-2.0 MMOL/L Total Creatine Kinase 198 30-200 U/L Urine Bacteria NEGATIVE /HPF Urine Bilirubin NEGATIVE NEGATIVE Urine Casts PRESENT /LPF Urine Clarity SLIGHTLY CLOUDY Urine Color YELLOW Urine Crystals NONE /LPF Urine Culture Indicated YES Urine Glucose (UA) NEGATIVE NEGATIVE Urine Hyaline Casts 5-10 H /LPF Urine Ketones NEGATIVE NEGATIVE Urine Leukocyte Esterase 2+ H NEGATIVE Urine Mucus NEGATIVE /LPF Urine Nitrite NEGATIVE NEGATIVE Urine Protein 3+ H NEGATIVE Urine RBC 5-10 H /HPF Urine RBC (Auto) 3+ H NEGATIVE Urine Specific [place] 1.020 1.016-1.022 Urine Squamous Epithelial Cells 2-5 /HPF Urine Urobilinogen NORMAL NORMAL MG/DL Urine WBC 10-25 H /HPF Urine pH 5 5-9 Test 04/21/16 13:52 Range/Units Lactic Acid Level 2.0 0.5-2.0 MMOL/L My Orders Orders-ZENOBIA MOORE MD Cbc With Automated Diff (04/21/16 10:38) Protime With Inr (04/21/16 10:38) Partial Thromboplastin Time (04/21/16 10:38) Comprehensive Metabolic Panel (04/21/16 10:38) Fibrin Degradation Products (04/21/16 10:38) Troponin I (04/21/16 10:38) Ua Culture If Indicated (04/21/16 10:38) Chest 1 View, Ap/Pa Only (04/21/16 10:38) Ekg Tracing (04/21/16 10:38) Nothing By Mouth (04/21/16 Dinner) Accucheck Stat ONCE (04/21/16 10:38) Saline Lock/Iv-Start (04/21/16 10:38) Saline Lock/Iv-Start (04/21/16 10:38) Vital Signs-Stroke Q1H (04/21/16 10:38) Ct Head Wo-R/O Stroke (04/21/16 10:38) O2 (04/21/16 10:38) Intake & Output 06,14,22 (04/21/16 10:38) Monitor-Rhythm Ecg Trace Only (04/21/16 10:38) Dysphagia Screening Tool (04/21/16 10:38) Manual Differential (04/21/16 10:58) Hs C Reactive Protein (04/21/16 11:07) Lactic Acid Analyzer (04/21/16 11:07) Blood Culture (04/21/16 11:07) Albuterol/Ipra Inhalation Soln (Duoneb I (04/21/16 11:15) Svn Sm Volume Nebulizer Rt-Rfs (04/21/16 11:07) BNP (04/21/16 11:18) Creatine Kinase (04/21/16 11:18) Red Cells Leukocytes Reduced (04/21/16 12:07) Type And Screen (04/21/16 12:07) Ns Iv 500 Ml (Sodium Chloride 0.9%) (04/21/16 12:16) Cefepime Injection (Maxipime Injection) (04/21/16 12:45) Urine Culture (04/21/16 13:14) Medications Given in ED Vital Signs/I&O Vital Sign - Last 12Hours 04/21/16 04/21/16 04/21/16 04/21/16 10:41 11:33 11:54 14:10 Temp 96.8 Pulse 60 62 60 Resp 18 18 18 B/P 126/47 129/43 126/47 Pulse Ox 97 95 94 95 O2 Delivery Room Air Intake and Output 04/22/16 00:00 Intake Total 500 ml Balance 500 ml Blood Pressure Mean: 73 Point of Care Testing Finger Stick Blood Glucose: 81 Blood Glucose Action Taken: dr notified Progress Note #1: Time: 12:39 Progress Note When lab trends were reviewed, patient demonstrates a steadily declining hemoglobin. A type and cross of 2 units packed red blood cells was ordered. There was questionable infiltrate on the chest x-ray, although it seems stable from prior. This could represent pneumonia. Lactic acid returned elevated. Cefepime was ordered as initial treatment. Patient has still to produce a satisfactory urine sample. 500 mL of normal saline is infusing. Patient was not a TPA candidate due to no evidence of stroke, greater than 3 hours from onset of symptoms, NIH score of zero, and recent use of anticoagulation. Progress Note #2: Time: 14:16 Progress Note Case was reviewed with Dr. CLEMENTE. She is not convinced the patient has urinary tract infection or pneumonia, especially since there is no fever and no elevation in CRP. She is aware that an empiric dose of cefepime was given in the ER but requests that no further antibiotics be administered until she can assess the patient. 2 units of blood have been crossmatched to hold for possible transfusion. Serial H&H measurements will be obtained every [address] Clemnete requests Protonix be administered. 40 mg twice a day was ordered on the bridging orders. Patient will be kept nothing by mouth for the time being until a trend on hemoglobin is noted and a determination on necessity of endoscopy is made. Home medications will be held until assessment by Dr. CLEMENTE. ECG Initial ECG Impression Date: Apr 21, 2016 Initial ECG Impression Time: 11:02 Initial ECG Rate: 60 Initial ECG Rhythm: A Fib/Flutter Comment Atrial fibrillation without ST elevation or depression. Pacer spikes noted. Diagnostic Imaging Diagonstic Imaging: CT Plain Films/CT/US/NM/MRI: head Comments CT head viewed by me and report reviewed. No acute abnormalities appreciated. See report below: NAME: KIRSTIN LEE [facility] REC#: [id number] PT STATUS: REG ER : 1940 PHYSICIAN: ZENOBIA MOORE MD ADMIT DATE: 04/21/16/ER Signed Date of Exam: 04/21/16 CT HEAD WO-R/O STROKE Indication: Weakness, fall CT head without contrast The ventricles are normal in size, shape and position. There are no masses or hemorrhages. There are no extra-axial fluid collections. There is mild atrophy. There is some decreased density in the periventricular white matter both cerebral hemispheres. 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 There is no CT evidence for an acute infarct. Dictated by: Dictated on workstation # [id number] Dict: 04/21/16 1051 Trans: 04/21/16 1052 [id number] Interpreted by: DEBI AMBROSE Electronically signed by:DEBI AMBROSE 04/21/16 1055 Diagonstic Imaging: Xray Plain Films/CT/US/NM/MRI: chest Comments Chest x-ray viewed by me and report reviewed. See report below: NAME: KIRSTIN LEE [facility] REC#: [id number] PT STATUS: REG ER : 1940 PHYSICIAN: ZENOBIA MOORE MD ADMIT DATE: 04/21/16/ER Signed Date of Exam: 04/21/16 CHEST 1 VIEW, AP/PA ONLY INDICATION: Fall. Possible stroke. Portable chest 10:48 AM. There is a dual-chamber pacemaker. There is a small right pleural effusion. There may be some right basilar infiltrate and/or atelectasis. IMPRESSION: Right basilar infiltrate and/or atelectasis with small right pleural effusion. This appears similar to exam dated 04/13/2016. Dictated by: Dictated on workstation # [id number] Dict: 04/21/16 1054 Trans: 04/21/16 1207 SARA [id number] Interpreted by: DEBI AMBROSE Electronically signed by:DEBI AMBROSE 04/21/16 1209 Departure Impression Impression: Primary Impression: GI bleed Qualified Code: K92.1 - Melena Additional Impressions: Generalized weakness Anemia Qualified Code: D64.9 - Anemia, unspecified Debility Disposition: 09 ADMITTED INPATIENT Condition: Stable Decision to Admit/Date: Apr 21, 2016 Time/Decision to Admit Time: 14:00 Departure-Patient Inst. Referrals: GLADYS CLEMENTE DO (PCP/Family) Primary Care Physician ZENOBIA MOORE MD Apr 21, 2016 11:50 Debility Disposition: 09 ADMITTED INPATIENT Condition: Stable Decision to Admit/Date: Apr 21, 2016 Time/Decision to Admit Time: 14:00 Departure-Patient Inst. Referrals: GLADYS CLEMENTE DO (PCP/Family) Primary Care Physician ZENOBIA MOORE MD Apr 21, 2016 11:50
[2016-04-21] MEDS ORDERED: NS IV 500 ML 500 ML IV ONE (12:16)
[2016-04-21 12:34] LABS: hs C REACTIVE PROTEIN 0.42 MG/DL (0.00-0.50)
[2016-04-21] MEDS ORDERED: CEFEPIME INJECTION 2,000 MG in NS (IVPB) 50 ML IV ONE (12:45)
[2016-04-21 13:22] LABS: BILIRUBIN,URINE NEGATIVE (NEGATIVE); KETONES,URINE NEGATIVE (NEGATIVE); LEUKOCYTE ESTERASE ,URINE 2+ (NEGATIVE); NITRITE,URINE NEGATIVE (NEGATIVE); PH,URINE 5 (5-9); PROTEIN,URINE 3+ (NEGATIVE); UROBILINOGEN,URINE NORMAL (NORMAL)
[2016-04-21] MEDS ORDERED: CEPH500C PO (16:40)
[2016-04-21] MEDS ORDERED: FLU TRIvalent (5 YOA+) 2016-17 (AFLURIA) 0.5 ML IM ONE (20:00)
[2016-04-21] MEDS ORDERED: 1/2 NS IV SOLUTION 1,000 ML IV SCH (20:15)
[2016-04-21] MEDS ORDERED: CATHETER FLUSH 10 ML SYR IV PRN (20:30)
--- NOTE | 2016-04-21 20:34 | History & Physicial ---
History of Present Illness History of Present Illness Reason for visit/HPI This is a 76 year old male who was just discharged from the hospital after being treated for weakness with falls and for pneumonia and a UTI. He was doing much better prior to discharge and had been doing well until this weekend when he stated his appetite decreased and he started feeling weak again. He noticed that his stools were looking black so he was afraid he may be having bleeding from his blood thinners. He held his blood thinners for 2 days but then was so weak that he slid out of a chair and was found by home health. He was brought to the emergency room and his hemoglobin was found to be 8.0. It was decided to admit him for acute gastrointestinal hemorrhage with acute anemia , monitor serial hemoglobin and hematocrits and transfuse as needed, and consult surgery for endoscopies. Date of Admission Apr 21, 2016 at 2:30 pm I consulted on this patient on 04/21/16 20:16 Attending Physician Pricila Clemente DO Admitting Physician Pricila Clemente DO Consult Allergies and Home Medications Allergies Coded Allergies: No Known Drug Allergies (Unverified , 06/02/10) Home Medications Apixaban 5 Mg Tablet 5 MG PO BID (Reported) Aspirin 81 Mg Tablet.dr 81 MG PO DAILY (Reported) Cephalexin 500 Mg Capsule 7Days 500 MG PO BID (Reported) FILLED 04/19/16 #14 FOR A 7 DAY THERAPY Finasteride 5 Mg Tablet 5 MG PO DAILY (Reported) Furosemide 40 Mg Tablet 40 MG PO Q48H PRN PRN SWELLING (Reported) Glimepiride 2 Mg Tablet 4 MG PO DAILY (Reported) TAKES 2 (2MG) TABLETS Glimepiride 2 Mg Tablet 2 MG PO HS (Reported) Metoprolol Succinate 25 Mg Tab.sr.24h 25 MG PO HS (Reported) LAST FILLED #30 02-18-16 Pioglitazone HCl 30 Mg Tablet 30 MG PO DAILY (Reported) Potassium Chloride 10 Meq Tab.er.prt 10 MEQ PO Q48H PRN PRN WHEN TAKING FUROSEMIDE (Reported) Simvastatin 40 Mg Tablet 40 MG PO HS (Reported) Sitagliptin Phosphate 100 Mg Tablet 100 MG PO DAILY (Reported) Tamsulosin HCl 0.4 Mg Cap.er.24h 0.4 MG PO HS (Reported) Past Rqcuqjv-Kxfcki-Dlxpxw Hx Patient Social History Alcohol Use: Denies Use Recreational Drug Use: No Smoking Status: Current Everyday Smoker Type Used: Cigarettes Physical Abuse Screen: No Sexual Abuse: No Recent Foreign Travel: No Contact w/other who traveled: No Recent Hopitalizations: Yes Recent Infectious Disease Expo: No Seasonal Allergies Seasonal Allergies: No Surgeries HX Surgeries: Yes Surgeries: Pacemaker Respiratory Hx Respiratory Disorders: Yes Cardiovascular Hx Cardiovascular Disorders: Yes (PACEMAKER, congestive heart failure) Cardiac Disorders: Atrial Fibrillation, Coronary Artery Disease, High Cholesterol, Hypertension Neurological Hx Neurological Disorders: No Reproductive System Hx Reproductive Disorders: No Genitourinary Hx Genitourinary Disorders: Yes Genitourinary Disorders: Prostate Problems, UTI-Chronic Gastrointestinal Hx Gastrointestinal Disorders: No Gastrointestinal Disorders: Gastroesophageal Reflux Musculoskeletal Hx Musculoskeletal Disorders: Yes Musculoskeletal Disorders: Degenerate Disk Disease, Arthritis, Back Injury Endocrine Hx Endocrine Disorders: Yes Endocrine Disorders: Diabetes, Non-Insulin dep HEENT HX ENT Disorders: Yes HEENT Disorders: Cataract Hearing Impairment: Hard of Hearing Cancer Hx Cancer: No Psychosocial Hx Psychiatric Problems: No Integumentary HX Skin/Integumentary Disorder: No Blood Transfusions Hx Blood Disorders: Yes (anticoagulated for A. fib) Constitutional: weakness EENTM: No blurred vision, No dental problems, No double vision, No ear discharge, No ear pain, No epistaxis, No eye pain, No hearing loss, No hoarseness, No mouth pain, No mouth swelling, No no symptoms reported, No nose congestion, No nose pain, No other, No see HPI, No tearing, No throat pain, No throat swelling, No vision loss Respiratory: No no symptoms reported, No see HPI, No cough, No dyspnea on exertion, No hemoptysis, No orthopnea, No phlegm, No short of breath, No stridor , No wheezing, No other Cardiovascular: No no symptoms reported, No see HPI, No chest pain, No edema, No Hx of Intervention, No palpitations, No syncope, No vascular heart diseas, No other Gastrointestinal: loss of appetite melena Genitourinary: frequency hesitancy incontinence Musculoskeletal: No no symptoms reported, No see HPI, No back pain, No gout, No joint pain, No joint swelling, No muscle pain, No muscle stiffness, No muscle cramps, No muscle twitching, No muscle weakness, No neck pain, No other Skin: No no symptoms reported, No see HPI, No change in color, No change in hair/nails, No dryness, No hx of skin cancer, No lesions, No lumps, No pruritus , No rash, No other Psychiatric/Neurological: Numbness (of feet) Weakness Physical Exam Vital Signs Vital Sign - Last 12Hours 04/21/16 10:41 Temp 96.8 Pulse 60 Resp 18 B/P 126/47 Pulse Ox 97 O2 Delivery Room Air Capillary Refill : Less Than 3 Seconds General Appearance: No Apparent Distress HEENT: Normal ENT Inspection Neck: Supple Respiratory: Lungs Clear Cardiovascular: Systolic Murmur Gallop/S3 Irregularly Irregular Gastrointestinal: Normal Bowel Sounds Non Tender Soft Rectal: Deferred Back: No CVA Tenderness Extremity: Non Tender No Calf Tenderness No Pedal Edema Neurologic/Psychiatric: Alert Oriented x3 Motor Weakness (diffuse) Skin: Ecchymosis (left lower lip) Other (abrasion right forehead) Comments Laboratory Tests 04/21/16 10:44: Glucometer 81 04/21/16 10:58: Activated Partial Thromboplast Time 31, Alanine Aminotransferase (ALT/SGPT) 32, Albumin 3.5, Alkaline Phosphatase 106, Anion Gap 15H, Anisocytosis MARKED, Aspartate Amino Transf (AST/SGOT) 30, BUN/Creatinine Ratio 34, Band Neutrophils 0, Basophils # (Auto) 0.0, Basophils % (Manual) 0, Basophils (%) (Auto) 0, Blood Urea Nitrogen 35H, Calcium Level 8.4L, Carbon Dioxide Level 18L, Chloride Level 104, Creatinine 1.02, D-Dimer 0.79H, Eosinophils # (Auto) 0.0, Eosinophils % (Manual) 0, Eosinophils (%) (Auto) 0, Estimat Glomerular Filtration Rate > 60, Glucose Level 74, Hematocrit 25L, Hemoglobin 8.0L, Hypochromasia SLIGHT, INR Comment 1.4, Lymphocytes # (Auto) 0.8L, Lymphocytes % (Manual) 10, Lymphocytes (%) (Auto) 6L, Mean Corpuscular Hemoglobin 28, Mean Corpuscular Hemoglobin Concent 32, Mean Corpuscular Volume 89, Mean Platelet Volume 10.4, Monocytes # (Auto) 0.5, Monocytes % (Manual) 1, Monocytes (%) (Auto ) 4, Neutrophils # (Auto) 11.3H, Neutrophils % (Manual) 89, Neutrophils (%) ( Auto) 90H, Platelet Count 234, Potassium Level 3.9, Prothrombin Time 16.6H, Red Blood Count 2.85L, Red Cell Distribution Width 18.0H, Sodium Level 137, Total Bilirubin 1.1H, Total Protein 5.9L, Troponin I < 0.30, White Blood Count 12.6H 04/21/16 12:03: B-Type Natriuretic Peptide 363.6H, C-Reactive Protein High Sensitivity 0.42, Lactic Acid Level 3.5*H, Total Creatine Kinase 198 04/21/16 13:14: Urine Bacteria NEGATIVE, Urine Bilirubin NEGATIVE, Urine Casts PRESENT, Urine Clarity SLIGHTLY CLOUDY, Urine Color YELLOW, Urine Crystals NONE, Urine Culture Indicated YES, Urine Glucose (UA) NEGATIVE, Urine Hyaline Casts 5-10H, Urine Ketones NEGATIVE, Urine Leukocyte Esterase 2+H, Urine Mucus NEGATIVE, Urine Nitrite NEGATIVE, Urine Protein 3+H, Urine RBC 5-10H, Urine RBC (Auto) 3+H, Urine Specific [place] 1.020, Urine Squamous Epithelial Cells 2-5, Urine Urobilinogen NORMAL, Urine WBC 10-25H, Urine pH 5 04/21/16 13:52: Lactic Acid Level 2.0 Assessment/Plan Assessment and Plan 1. Acute GI Hemorrhage--admit and hold eliquis, start IV protonix, monitor H and H and transfuse as needed, consult surgery for endoscopy 2. Weakness with Fall due to #1 3. Chronic Atrial Fibrillation--rate currently controlled 4. Diabetes mellitus II--start accuchecks with SSI 5. BPH with urinary retention--resume medications Clinical Quality Measures DVT/VTE Risk/Contraindication: Risk Factor Score Per Nursin RFS Level Per Nursing on Admit: 2=Moderate Stroke: Date of last known well: Apr 20, 2016 PRICILA CLEMENTE DO Apr 21, 2016 8:34 pm
[2016-04-21] MEDS ORDERED: TAMSULOSIN 0.4 MG (FLOMAX) CAP PO SCH (21:00)
[2016-04-21] MEDS: PANTOPRAZOLE 40 MG/10 ML (PROTONIX) VIAL IV SCH (21:46)
[2016-04-21] MEDS ORDERED: DEXTROSE 50% 50 ML (IMS) SYR ONE (22:14)
[2016-04-21] MEDS ORDERED: DEXTROSE 50% 50 ML (IMS) SYR IV ONE (22:30)
[2016-04-22] VITALS (12 sets, daily range): BP systolic 126–180; BP diastolic 58–77
[2016-04-22] MEDS ORDERED: FUROSEMIDE 40 MG/4 ML INJ (LASIX) IVP ONE ×2 (00:45→05:45)
[2016-04-22] MEDS ORDERED: [UNRECOGNIZED DRUG - OTHER] IV ONE (00:46)
[2016-04-22] MEDS ORDERED: POTASSIUM CHLORIDE IV ONE (00:46)
[2016-04-22] MEDS ORDERED: DEXTROSE IV ONE (00:46)
[2016-04-22] MEDS: D5 1/2 NS 1000 ML IV SOLUTION 1,000 ML IV SCH ×2 (00:52→21:08)
[2016-04-22] MEDS ORDERED: FUROSEMIDE 40 MG/4 ML INJ (LASIX) ONE (08:26)
[2016-04-22] MEDS: PANTOPRAZOLE 40 MG/10 ML (PROTONIX) VIAL IV SCH ×2 (08:31→21:07)
[2016-04-22] MEDS: FINASTERIDE (PROSCAR) 5 MG TAB PO SCH (08:31)
[2016-04-22] MEDS ORDERED: NON-FORMULARY MEDICATION 1 EA EA (Finasteride 5 MG) PO SCH (09:00)
--- NOTE | 2016-04-22 09:42 | Consultation ---
History of Present Illness History of Present Illness Patient Consulted On(danielle/time) 04/22/16 09:37 Date of Admission History of Present Illness Surgery asked to consult regarding melena and weakness. This is a 76 year old male who was just discharged from the hospital after being treated for weakness with falls and for pneumonia and a UTI. He was doing much better prior to discharge and had been doing well until this weekend when he stated his appetite decreased and he started feeling weak again. He noticed that his stools were looking black (whicha according to him started 5 days after he started Eliquis) so he was afraid he may be having bleeding from his blood thinners. He held his blood thinners for 2 days but then was so weak that he slid out of a chair and was found by home health. He was brought to the emergency room and his hemoglobin was found to be 8.0. Dr. Clemente decided to admit him for acute gastrointestinal hemorrhage with acute anemia, monitor serial hemoglobin and hematocrits and transfuse as needed , and consult surgery for endoscopies. Allergies and Home Medications Allergies Coded Allergies: No Known Drug Allergies (Unverified , 06/02/10) Home Medications Apixaban 5 Mg Tablet 5 MG PO BID (Reported) Aspirin 81 Mg Tablet.dr 81 MG PO DAILY (Reported) Cephalexin 500 Mg Capsule 7Days 500 MG PO BID (Reported) FILLED 04/19/16 #14 FOR A 7 DAY THERAPY Finasteride 5 Mg Tablet 5 MG PO DAILY (Reported) Furosemide 40 Mg Tablet 40 MG PO Q48H PRN PRN SWELLING (Reported) Glimepiride 2 Mg Tablet 4 MG PO DAILY (Reported) TAKES 2 (2MG) TABLETS Glimepiride 2 Mg Tablet 2 MG PO HS (Reported) Metoprolol Succinate 25 Mg Tab.sr.24h 25 MG PO HS (Reported) LAST FILLED #30 --16 Pioglitazone HCl 30 Mg Tablet 30 MG PO DAILY (Reported) Potassium Chloride 10 Meq Tab.er.prt 10 MEQ PO Q48H PRN PRN WHEN TAKING FUROSEMIDE (Reported) Simvastatin 40 Mg Tablet 40 MG PO HS (Reported) Sitagliptin Phosphate 100 Mg Tablet 100 MG PO DAILY (Reported) Tamsulosin HCl 0.4 Mg Cap.er.24h 0.4 MG PO HS (Reported) Past Hliwhyw-Jbiamq-Ffopdc Hx Patient Social History Alcohol Use: Denies Use Recreational Drug Use: No Smoking Status: Current Everyday Smoker Type Used: Cigarettes Recent Foreign Travel: No Contact w/Someone Who Travel: No Recent Infectious Disease Expo: No Recent Hopitalizations: Yes Physical Abuse Screen: No Sexual Abuse: No Seasonal Allergies Seasonal Allergies: No Surgeries HX Surgeries: Yes Surgeries: Pacemaker Respiratory Hx Respiratory Disorders: Yes Respiratory Disorders: Pneumonia, COPD Cardiovascular Hx Cardiac Disorders: Yes (PACEMAKER, congestive heart failure) Cardiac Disorders: Atrial Fibrillation, Coronary Artery Disease, High Cholesterol, Hypertension Neurological Hx Neurological Disorders: No Reproductive System Hx Reproductive Disorders: No Genitourinary Hx Genitourinary Disorders: Yes Genitourinary Disorders: Prostate Problems, UTI-Chronic Gastrointestinal Hx Gastrointestinal Disorders: No Gastrointestinal Disorders: Gastroesophageal Reflux Musculoskeletal Hx Musculoskeletal Disorders: Yes Musculoskeletal Disorders: Degenerate Disk Disease, Arthritis, Back Injury Endocrine Hx Endocrine Disorders: Yes Endocrine Disorders: Diabetes, Non-Insulin dep HEENT HX ENT Disorders: Yes HEENT Disorders: Cataract Hearing Impairment: Hard of Hearing Cancer Hx Cancer: No Psychosocial Hx Psychiatric Problems: No Integumentary HX Skin/Integumentary Disorder: No Blood Transfusions Hx Blood Disorders: Yes (anticoagulated for A. fib) Family Medical History Significant Family History: Cancer (Father had bladder cancer), Hypertension, Stroke (Mother) Review of Systems-General Constitutional: No chills, No diaphoresis, malaise weakness EENTM: blurred vision hearing loss vision lossNo epistaxis, No mouth pain, No throat swelling Respiratory: cough dyspnea on exertionNo hemoptysis Cardiovascular: No chest pain, No edema, vascular heart diseas Gastrointestinal: No abdominal pain, No constipation, melena Genitourinary: frequency hematuria (saw some blood after started "blood thinners" and consulted with Dr. Daniel) hesitancy Musculoskeletal: joint pain muscle stiffness Skin: drynessNo rash Psychiatric/Neurological: Denies Anxiety, Denies Depressed, Denies Headache, Denies Seizure Physical Exam-General Problems Physical Exam Vital Signs Vital Sign - Last 12Hours 04/21/16 10:41 Temp 96.8 Pulse 60 Resp 18 B/P 126/47 Pulse Ox 97 O2 Delivery Room Air Capillary Refill : Less Than 3 SecondsLess Than 3 Seconds General Appearance: WD/WN no apparent distress Eyes: Bilateral Eye EOMI, Bilateral Eye PERRL HEENT: pharynx normalNo scleral icterus (R), No scleral icterus (L), other ( mouth is dry) Neck: supple normal inspection Respiratory: lungs clear no respiratory distress no accessory muscle use Cardiovascular: regular rate, rhythm no murmur Gastrointestinal: normal bowel sounds non tender soft no organomegaly Rectal: deferred Back: no CVA tenderness no vertebral tenderness Extremities: non-tender no pedal edema no calf tenderness 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 nml as tested no motor/sensory deficits alert normal mood/affect oriented x 3 Skin: normal color warm/dry Lymphatic: no adenopathy (cervical or supraclavicular) Data Review Labs Laboratory Tests 04/21/16 10:44: Glucometer 81 04/21/16 10:58: Activated Partial Thromboplast Time 31, Alanine Aminotransferase (ALT/SGPT) 32, Albumin 3.5, Alkaline Phosphatase 106, Anion Gap 15H, Anisocytosis MARKED, Aspartate Amino Transf (AST/SGOT) 30, BUN/Creatinine Ratio 34, Band Neutrophils 0, Basophils # (Auto) 0.0, Basophils % (Manual) 0, Basophils (%) (Auto) 0, Blood Urea Nitrogen 35H, Calcium Level 8.4L, Carbon Dioxide Level 18L, Chloride Level 104, Creatinine 1.02, D-Dimer 0.79H, Eosinophils # (Auto) 0.0, Eosinophils % (Manual) 0, Eosinophils (%) (Auto) 0, Estimat Glomerular Filtration Rate > 60, Glucose Level 74, Hematocrit 25L, Hemoglobin 8.0L, Hypochromasia SLIGHT, INR Comment 1.4, Lymphocytes # (Auto) 0.8L, Lymphocytes % (Manual) 10, Lymphocytes (%) (Auto) 6L, Mean Corpuscular Hemoglobin 28, Mean Corpuscular Hemoglobin Concent 32, Mean Corpuscular Volume 89, Mean Platelet Volume 10.4, Monocytes # (Auto) 0.5, Monocytes % (Manual) 1, Monocytes (%) (Auto ) 4, Neutrophils # (Auto) 11.3H, Neutrophils % (Manual) 89, Neutrophils (%) ( Auto) 90H, Platelet Count 234, Potassium Level 3.9, Prothrombin Time 16.6H, Red Blood Count 2.85L, Red Cell Distribution Width 18.0H, Sodium Level 137, Total Bilirubin 1.1H, Total Protein 5.9L, Troponin I < 0.30, White Blood Count 12.6H 04/21/16 12:03: B-Type Natriuretic Peptide 363.6H, C-Reactive Protein High Sensitivity 0.42, Lactic Acid Level 3.5*H, Total Creatine Kinase 198 04/21/16 13:14: Urine Bacteria NEGATIVE, Urine Bilirubin NEGATIVE, Urine Casts PRESENT, Urine Clarity SLIGHTLY CLOUDY, Urine Color YELLOW, Urine Crystals NONE, Urine Culture Indicated YES, Urine Glucose (UA) NEGATIVE, Urine Hyaline Casts 5-10H, Urine Ketones NEGATIVE, Urine Leukocyte Esterase 2+H, Urine Mucus NEGATIVE, Urine Nitrite NEGATIVE, Urine Protein 3+H, Urine RBC 5-10H, Urine RBC (Auto) 3+H, Urine Specific [place] 1.020, Urine Squamous Epithelial Cells 2-5, Urine Urobilinogen NORMAL, Urine WBC 10-25H, Urine pH 5 04/21/16 13:52: Lactic Acid Level 2.0 04/21/16 21:44: Hematocrit 22L, Hemoglobin 7.0L 04/21/16 22:28: Glucometer 100 04/21/16 23:03: Glucometer 70 04/21/16 23:38: Glucometer 62L 04/22/16 00:16: Glucometer 103 04/22/16 01:31: Glucometer 72 04/22/16 05:15: Stool Occult Blood Immunoassay POSITIVEH 04/22/16 05:20: Hematocrit 26L, Hemoglobin 8.3L 04/22/16 05:48: Glucometer 73 Microbiology 04/21/16 Urine Culture - Preliminary, Resulted NO GROWTH Assessment/Plan Assessment/Plan Assessment/Plan Melena - unknown source, will do EGD today and if nothing is found will plan for colonoscopy tomorrow. Discussed risks and complications with pt of EGD; including but not limited to pain, bleeding, possible esophageal rupture. All questions answered to his satisfaction. He was told he could have some clear liquids now and then ice chips. EGD planned for 2pm. Anemia - unknown source HX of COPD, Pneumonia, possible UTI maximum medical management. Hx of Afib and pacemaker implantation Clinical Quality Measures DVT/VTE Risk/Contraindication: Risk Factor Score Per Nursin RFS Level Per Nursing on Admit: 2=Moderate Stroke: Date of last known well: Apr 20, 2016 CHRISTEL GARCIA DO Apr 22, 2016 09:42
--- NOTE | 2016-04-22 12:54 | Progress Note (SOAP) ---
Subjective Subjective/Events-last exam Fwup acute GI Hemorrhage, acute anemia due to blood loss, chronic atrial fibrillation, HTN, diabetes mellitus. Required transfusion last night as hemoglobin dropped to 7. Also had hypoglycemia last night. Objective Exam Vital Signs Date Time Temp Pulse Resp B/P Pulse Ox O2 Delivery O2 Flow Rate FiO2 04/22/16 08:19 98.0 60 20 164/72 94 Room Air 04/22/16 07:00 59 04/22/16 05:54 98.2 60 20 159/68 04/22/16 05:39 98.8 60 20 167/67 96 04/22/16 05:15 98.3 60 20 171/76 95 04/22/16 03:30 98.7 60 20 159/67 94 Room Air 04/22/16 02:15 99.2 60 20 140/62 95 04/22/16 02:02 99.3 60 20 150/63 95 04/22/16 01:00 60 04/22/16 00:20 99.4 60 20 126/58 95 Room Air 04/21/16 22:06 99.1 60 18 158/71 94 Room Air 04/21/16 20:00 99.1 60 18 158/71 94 Room Air 04/21/16 19:00 62 04/21/16 17:39 60 18 156/68 95 04/21/16 16:49 60 04/21/16 16:40 96 Room Air 04/21/16 16:39 60 18 158/66 95 04/21/16 15:30 60 18 96 04/21/16 14:39 61 18 171/74 98 04/21/16 14:10 60 18 126/47 95 I & O 04/22/16 07:00 Intake Total 530 ml Output Total 50 ml Balance 480 ml Capillary Refill : Less Than 3 SecondsLess Than 3 Seconds General Appearance: No Apparent Distress Neck: Supple Respiratory: Lungs Clear Cardiovascular: Systolic Murmur Gallop/S3 Irregularly Irregular Gastrointestinal: normal bowel sounds non tender soft Extremity: Non Tender No Calf Tenderness No Pedal Edema Neurologic/Psychiatric: Alert Oriented x3 Results Lab Laboratory Tests 04/21/16 13:14: Urine Bacteria NEGATIVE, Urine Bilirubin NEGATIVE, Urine Casts PRESENT, Urine Clarity SLIGHTLY CLOUDY, Urine Color YELLOW, Urine Crystals NONE, Urine Culture Indicated YES, Urine Glucose (UA) NEGATIVE, Urine Hyaline Casts 5-10H, Urine Ketones NEGATIVE, Urine Leukocyte Esterase 2+H, Urine Mucus NEGATIVE, Urine Nitrite NEGATIVE, Urine Protein 3+H, Urine RBC 5-10H, Urine RBC (Auto) 3+H, Urine Specific [place] 1.020, Urine Squamous Epithelial Cells 2-5, Urine Urobilinogen NORMAL, Urine WBC 10-25H, Urine pH 5 04/21/16 13:52: Lactic Acid Level 2.0 04/21/16 21:44: Hematocrit 22L, Hemoglobin 7.0L 04/21/16 22:28: Glucometer 100 04/21/16 23:03: Glucometer 70 04/21/16 23:38: Glucometer 62L 04/22/16 00:16: Glucometer 103 04/22/16 01:31: Glucometer 72 04/22/16 05:15: Stool Occult Blood Immunoassay POSITIVEH 04/22/16 05:20: Hematocrit 26L, Hemoglobin 8.3L 04/22/16 05:48: Glucometer 73 04/22/16 10:47: Glucometer 121H Microbiology 04/21/16 Urine Culture - Preliminary, Resulted NO GROWTH Assessment/Plan Assessment/Plan Assess & Plan/Chief Complaint 1. Acute GI Hemorrhage--continue protonix, EGD today 2. Acute Anemia due to Acute Blood Loss--S/P transfusion, monitor H/H 3. Hypertension--resume metoprolol 4. Diabetes mellitus II with hypoglycemia--on accuchecks with SSI and changed to D51/2NS last night 5. Weakness--resume PT once endoscopies complete and H/H stable Diagnosis/Problems: Clinical Quality Measures DVT/VTE Risk/Contraindication: Risk Factor Score Per Nursin RFS Level Per Nursing on Admit: 2=Moderate Stroke: Date of last known well: Apr 20, 2016 GLADYS ORONA DO Apr 22, 2016 12:54 pm
[2016-04-22] MEDS ORDERED: NS IV 500 ML 500 ML IV PRN ×2 (14:05→14:25)
[2016-04-22] MEDS ORDERED: proPOfol 200 MG/20 ML (DIPRIVAN) VIAL IV ONE (14:20)
[2016-04-22] MEDS: HURRICAINE EXT TUBE (BENZOCAINE) XX PRN ×2 (14:20→15:21)
[2016-04-22] MEDS ORDERED: NS IV 500 ML 500 ML ONE (14:21)
[2016-04-22] MEDS: ALFUZOSIN HCL 10 MG TAB (UROXATRAL) PO SCH (17:37)
[2016-04-22] MEDS ORDERED: POLYETHYLENE GLYCOL 17 GM (MIRALAX) PACK PO NR (19:30)
[2016-04-22] MEDS ORDERED: MAGNESIUM CITRATE 300 ML BTL PO NR (21:30)
[2016-04-23] VITALS: BP 135/65
[2016-04-23 04:00] VITALS: BP 144/66
[2016-04-23] MEDS ORDERED: POLYETHYLENE GLYCOL 17 GM (MIRALAX) PACK PO NR (06:00)
[2016-04-23 08:00] VITALS: BP 134/51
[2016-04-23] MEDS: FINASTERIDE (PROSCAR) 5 MG TAB PO SCH (09:00)
[2016-04-23] MEDS: PANTOPRAZOLE 40 MG/10 ML (PROTONIX) VIAL IV SCH ×2 (09:51→21:39)
[2016-04-23] MEDS ORDERED: NS IV 500 ML 500 ML ONE (12:01)
--- NOTE | 2016-04-23 12:24 | Progress Note-Post Operative ---
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
[2016-04-23] MEDS ORDERED: proPOfol 200 MG/20 ML (DIPRIVAN) VIAL IV ONE (12:35)
--- NOTE | 2016-04-23 14:11 | Progress Note-Post Operative ---
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
--- NOTE | 2016-04-23 14:18 | Progress Note ---
Subjective Subjective/Events-last exam Pt was seen and examined just prior to his Colonoscopy at 11:59, this is a late entry note. He had no abominal pain, still complained of being a little weak. He took all of his prep and thought it was coming out "light brown". Denied SOB and no fever or chills. Stated he was hungry. Review of Systems General: No Chills, No Night Sweats, Fatigue Pulmonary: No Dyspnea, No Cough Cardiovascular: No: Chest Pain, Palpitations Gastrointestinal: No: Abdominal Pain, Nausea, Vomiting Genitourinary: No Dysuria, No Hematuria Objective Exam Vital Signs Date Time Temp Pulse Resp B/P Pulse Ox O2 Delivery O2 Flow Rate FiO2 04/23/16 08:00 98.4 80 20 134/51 99 Room Air 04/23/16 04:00 98.3 59 18 144/66 99 Room Air 04/23/16 01:00 64 04/23/16 00:00 98.5 62 18 135/65 98 Room Air 04/22/16 21:00 95 Room Air 04/22/16 20:44 98.6 63 18 133/64 96 Room Air 04/22/16 19:00 59 04/22/16 16:59 98.4 62 18 180/74 95 Room Air I & O 04/23/16 07:00 Intake Total 3080 ml Output Total 300 ml Balance 2780 ml Capillary Refill : Less Than 3 SecondsLess Than 3 Seconds General Appearance: No Apparent Distress Anxious HEENT: Pharynx NormalNo Pale Conjunctivae (L), No Pale Conjunctivae (R) Neck: Non Tender Supple Respiratory: Lungs Clear No Accessory Muscle Use No Respiratory Distress Cardiovascular: Systolic Murmur Gallop/S3 Irregularly Irregular Gastrointestinal: normal bowel sounds non tender soft Extremity: Non Tender No Calf Tenderness No Pedal Edema Neurologic/Psychiatric: Alert Oriented x3 Skin: Ecchymosis (left lower lip) Other (abrasion right forehead) Results Lab Laboratory Tests 04/22/16 15:55: Glucometer 122H 04/22/16 20:48: Glucometer 289H 04/22/16 22:38: Hematocrit 30L, Hemoglobin 10.1L 04/23/16 05:15: Glucometer 200H 04/23/16 05:40: Hematocrit 29L, Hemoglobin 9.6L Microbiology 04/21/16 Blood Culture - Preliminary, Resulted No growth 04/21/16 Urine Culture - Preliminary, Resulted NO GROWTH Assessment/Plan Assessment/Plan Assessment/Plan 1. Acute GI Hemorrhage--continue protonix, EGD showed very mild duodenitis and Hiatal Hernia 2. Acute Anemia due to Acute Blood Loss--S/P transfusion, monitor H/H 3. Hypertension--resume metoprolol 4. Diabetes mellitus II with hypoglycemia--on accuchecks with SSI and changed to D51/2NS last night 5. Weakness--resume PT once H/H stable Colonoscopy with possible biopsy, possible injection planned. Discussed risks and complications with pt; including but not limited to pain, bleeding, infection and worst case scenario intestinal perforation. All questions answered to pt's satisfaction. Clinical Quality Measures DVT/VTE Risk/Contraindication: Risk Factor Score Per Nursin RFS Level Per Nursing on Admit: 2=Moderate Stroke: Date of last known well: Apr 20, 2016 CHRISTEL GARCIA DO Apr 23, 2016 14:17
[2016-04-23 16:00] VITALS: BP 137/62
--- NOTE | 2016-04-23 18:07 | Progress Note (SOAP) ---
Subjective Subjective/Events-last exam Fwup acute GI Hemorrhage, acute anemia due to blood loss, chronic atrial fibrillation, HTN, diabetes mellitus. EGD showed no active bleeding. Colonoscopy showed polyps, diverticulosis and internal hemorrhoids. Objective Exam Vital Signs Date Time Temp Pulse Resp B/P Pulse Ox O2 Delivery O2 Flow Rate FiO2 04/23/16 16:00 98.1 61 20 137/62 99 Room Air 04/23/16 08:00 98.4 80 20 134/51 99 Room Air 04/23/16 04:00 98.3 59 18 144/66 99 Room Air 04/23/16 01:00 64 04/23/16 00:00 98.5 62 18 135/65 98 Room Air 04/22/16 21:00 95 Room Air 04/22/16 20:44 98.6 63 18 133/64 96 Room Air 04/22/16 19:00 59 I & O 04/23/16 07:00 Intake Total 3080 ml Output Total 300 ml Balance 2780 ml Capillary Refill : Less Than 3 SecondsLess Than 3 Seconds General Appearance: No Apparent Distress Neck: Supple Respiratory: Lungs Clear Cardiovascular: Systolic Murmur Gallop/S3 Irregularly Irregular Gastrointestinal: normal bowel sounds non tender soft Extremity: Non Tender No Calf Tenderness No Pedal Edema Neurologic/Psychiatric: Alert Oriented x3 Results Lab Laboratory Tests 04/22/16 20:48: Glucometer 289H 04/22/16 22:38: Hematocrit 30L, Hemoglobin 10.1L 04/23/16 05:15: Glucometer 200H 04/23/16 05:40: Hematocrit 29L, Hemoglobin 9.6L 04/23/16 14:10: Hematocrit 32L, Hemoglobin 10.5L 04/23/16 14:32: Lab Scanned Report Transfusion Reaction Form 04/23/16 16:26: Glucometer 260H Microbiology 04/21/16 Blood Culture - Preliminary, Resulted No growth 04/21/16 Urine Culture - Final, Complete NO GROWTH Assessment/Plan Assessment/Plan Assess & Plan/Chief Complaint 1. Acute GI Hemorrhage--continue protonix, EGD showed no active bleeding, colonoscopy showed polyps/diverticulosis/internal hemorrhoids 2. Acute Anemia due to Acute Blood Loss--S/P transfusion, H/H stable 3. Hypertension--back on metoprolol 4. Diabetes mellitus II with hypoglycemia--on accuchecks with SSI 5. Weakness--resume PT in AM 6. Atrial Fibrillation--rate controlled, blood thinners on hold due to GI Bleed Diagnosis/Problems: Clinical Quality Measures DVT/VTE Risk/Contraindication: Risk Factor Score Per Nursin RFS Level Per Nursing on Admit: 2=Moderate Stroke: Date of last known well: Apr 20, 2016 GLADYS ORONA DO Apr 23, 2016 6:07 pm
[2016-04-23] MEDS: ALFUZOSIN HCL 10 MG TAB (UROXATRAL) PO SCH (19:04)
[2016-04-23 20:00] VITALS: BP 128/67
[2016-04-23] MEDS: inSUlin (REGULAR) HUMAN 1 UNIT/0.01 ML (CHARGE PER UNIT) SC SCH (21:39)
[2016-04-24] VITALS (7 sets, daily range): BP systolic 124–150; BP diastolic 55–69
[2016-04-24] MEDS: inSUlin (REGULAR) HUMAN 1 UNIT/0.01 ML (CHARGE PER UNIT) SC SCH ×4 (05:31→21:00)
[2016-04-24 07:17] LABS: BASOPHILS % (AUTO) 0 % (0-10); EOSINOPHILS # (AUTO) 0.1 10^3/uL (0.0-0.3); EOSINOPHILS % (AUTO) 2 % (0-10); LYMPHOCYTES # (AUTO) 0.9 X 10^3 (1.0-4.0); LYMPHOCYTES % (AUTO) 15 % (12-44); MEAN CORPUSCULAR HEMOGLOBIN 28 PG (25-34); MEAN CORPUSCULAR HGB CONC 32 G/DL (32-36); MEAN CORPUSCULAR VOLUME 88 FL (80-99); MEAN PLATELET VOLUME 10.8 FL (7.4-10.4); MONOCYTES # (AUTO) 0.4 X 10^3 (0.0-1.0); MONOCYTES % (AUTO) 6 % (0-12); NEUTROPHILS # (AUTO) 4.8 X 10^3 (1.8-7.8); NEUTROPHILS % (AUTO) 77 % (42-75); PLATELET COUNT 206 10^3/uL (130-400); RED BLOOD COUNT 3.34 10^6/uL (4.35-5.85); RED CELL DISTRIBUTION WIDTH 17.9 % (10.0-14.5); WHITE BLOOD COUNT 6.3 10^3/uL (4.3-11.0)
[2016-04-24 07:42] LABS: ALANINE AMINOTRANSFERASE 25 U/L (0-55); ALBUMIN 3.1 G/DL (3.2-4.5); ANION GAP 7 MMOL/L (5-14); ASPARTATE AMINO TRANSFERASE 17 U/L (5-34); BILIRUBIN,TOTAL 1.1 MG/DL (0.1-1.0); BLOOD UREA NITROGEN 18 MG/DL (7-18); BUN/CREATININE RATIO 21; CARBON DIOXIDE 23 MMOL/L (21-32); CHLORIDE 108 MMOL/L (98-107); CREATININE SERUM 0.87 MG/DL (0.60-1.30); GFR ESTIMATED > 60; GLUCOSE 100 MG/DL (70-105); POTASSIUM 3.6 MMOL/L (3.6-5.0); SODIUM 138 MMOL/L (135-145); TOTAL PROTEIN 5.2 G/DL (6.4-8.2)
[2016-04-24] MEDS: ASPIRIN E.C. 81 MG (ECOTRIN) TAB PO SCH (09:55)
[2016-04-24] MEDS: PANTOPRAZOLE 40 MG/10 ML (PROTONIX) VIAL IV SCH ×2 (09:55→20:15)
[2016-04-24] MEDS: FINASTERIDE (PROSCAR) 5 MG TAB PO SCH (09:55)
--- NOTE | 2016-04-24 10:52 | Progress Note ---
Subjective Subjective/Events-last exam Pt seen and examined, denies any abdominal pain. States he feels about the same ; slightly weak. Denies fever or chills. States this is the first day his stool was brown. He is tolerating diet. Review of Systems General: No Chills, No Night Sweats HEENT: No Head Aches, No Dysphasia Pulmonary: No Dyspnea, No Cough Cardiovascular: No: Chest Pain, Palpitations Gastrointestinal: No: Abdominal Pain, Nausea, Vomiting Genitourinary: No Dysuria, No Hematuria Neurological: : WeaknessNo: Confusion Objective Exam Vital Signs Date Time Temp Pulse Resp B/P Pulse Ox O2 Delivery O2 Flow Rate FiO2 04/24/16 08:00 98.9 67 28 149/67 94 Room Air 04/24/16 07:00 60 04/24/16 04:00 99.1 60 18 132/63 96 Room Air 04/24/16 01:00 59 04/24/16 00:00 98.7 60 18 124/55 97 Room Air 04/23/16 21:00 Room Air 04/23/16 20:00 98.2 61 20 128/67 96 Room Air 04/23/16 19:00 60 04/23/16 16:00 98.1 61 20 137/62 99 Room Air 04/23/16 13:36 59 I & O 04/24/16 07:00 Intake Total 2730 ml Output Total 800 ml Balance 1930 ml Capillary Refill : Less Than 3 SecondsLess Than 3 Seconds General Appearance: No Apparent Distress WD/WN HEENT: PERRL/EOMI Pharynx NormalNo Pale Conjunctivae (L), No Pale Conjunctivae (R) Neck: Supple Respiratory: Lungs Clear No Accessory Muscle Use Cardiovascular: Systolic Murmur Gallop/S3 Irregularly Irregular Gastrointestinal: normal bowel sounds non tender soft Extremity: Non Tender No Calf Tenderness No Pedal Edema Neurologic/Psychiatric: Alert Oriented x3 Skin: Ecchymosis (left lower lip) Other (abrasion right forehead) Results Lab Laboratory Tests 04/23/16 14:10: Hematocrit 32L, Hemoglobin 10.5L 04/23/16 14:32: Lab Scanned Report Transfusion Reaction Form 04/23/16 16:26: Glucometer 260H 04/23/16 21:22: Glucometer 283H 04/24/16 05:30: Glucometer 113H 04/24/16 06:12: Alanine Aminotransferase (ALT/SGPT) 25, Albumin 3.1L, Alkaline Phosphatase 88, Anion Gap 7, Aspartate Amino Transf (AST/SGOT) 17, BUN/Creatinine Ratio 21, Basophils # (Auto) 0.0, Basophils (%) (Auto) 0, Blood Urea Nitrogen 18, Calcium Level 8.0L, Carbon Dioxide Level 23, Chloride Level 108H, Creatinine 0.87, Eosinophils # (Auto) 0.1, Eosinophils (%) (Auto) 2, Estimat Glomerular Filtration Rate > 60, Glucose Level 100, Hematocrit 29L, Hemoglobin 9.4L, Lymphocytes # (Auto) 0.9L, Lymphocytes (%) (Auto) 15, Mean Corpuscular Hemoglobin 28, Mean Corpuscular Hemoglobin Concent 32, Mean Corpuscular Volume 88, Mean Platelet Volume 10.8H, Monocytes # (Auto) 0.4, Monocytes (%) (Auto) 6, Neutrophils # (Auto) 4.8, Neutrophils (%) (Auto) 77H, Platelet Count 206, Potassium Level 3.6, Red Blood Count 3.34L, Red Cell Distribution Width 17.9H, Sodium Level 138, Total Bilirubin 1.1H, Total Protein 5.2L, White Blood Count 6.3 Microbiology 04/21/16 Blood Culture - Preliminary, Resulted No growth 04/21/16 Urine Culture - Final, Complete NO GROWTH Assessment/Plan Assessment/Plan Assessment/Plan 1. GI Hemorrhage--H/H stable now. Continue protonix, EGD showed no active bleeding, colonoscopy showed polyps/diverticulosis/internal hemorrhoids 2. Acute Anemia due to Acute Blood Loss--S/P transfusion, H/H stable 3. Hypertension--back on metoprolol 4. Diabetes mellitus II with hypoglycemia--on accuchecks with SSI 5. Weakness--resume PT in AM 6. Atrial Fibrillation--rate controlled, blood thinners on hold due to GI Bleed I discussed with the pt and Dr Clemente, possible next steps. A capsule endoscopy could be done, however waiting to see if he drops hemoglobin again and sending pt home is also a reasonable course of action. Pt wants to stop his blood thinners (he will have to talk to his Drum Stenciler about this) and this may stop his slow blood loss. If he drops again, he can always get a capsule endoscopy as an outpt. Thank you for this consult; I would be happy to see pt in my office as needed. Clinical Quality Measures DVT/VTE Risk/Contraindication: Risk Factor Score Per Nursin RFS Level Per Nursing on Admit: 2=Moderate Stroke: Date of last known well: Apr 20, 2016 CHRISTEL GARCIA DO Apr 24, 2016 10:52
--- NOTE | 2016-04-24 11:12 | Physical Therapy Evaluation ---
PT Evaluation-General Medical Diagnosis Admission Date Apr 21, 2016 at 14:30 Medical Diagnosis: GI bleed Onset Date: Apr 21, 2016 Therapy Diagnosis Therapy Diagnosis: debility Height/Weight Height (Feet): 5 Height (Inches): 4.00 Weight (Pounds): 164 Weight (Ounces): 0.3 Precautions Precautions/Isolations: Fall Prevention, Standard Precautions Referral Physician: Chyna Reason for Referral: Evaluation/Treatment Medical History Pertinent Medical History: Atrial Fib, CAD, DM, GERD, HTN, Smoking Additional Medical History weakness/falls/UTI Current History acute GI Hemorrhage Reviewed History: Yes Social History Home: Single Level Current Living Status: Alone Prior/Core FIM Prior Level of Function Functional Tiller Measure 0=Not Assessed/NA 4=Minimal Assistance 1=Total Assistance 5=Supervision or Setup 2=Maximal Assistance 6=Modified Tiller 3=Moderate Assistance 7=Complete Tiller Bed Mobility: 6 Transfers (B,C,W/C) (FIM): 6 Gait: 6 had been receiving home health prior to admit PT Evaluation-Current Subjective Patient is very agreeable to participate with PT. Pain Numeric Pain Scale: 0-No Pain Location: No Pain Reported Objective Patient Orientation: Normal For Age Problem Solving: Good ROM/Strength ROM Lower Extremities bilateral LE WFL Strenght Lower Extremities bilateral LE WFL Integumentary/Posture Integumentary refer to nursing notes Bowel Incontinence: No Bladder Incontinence: No Posture WNL Neuromuscular (Tone, Coordination, Reflexes) grossly intact Sensory Vision: Functional Sensation Right Lower Extremit: Impaired Sensation Left Lower Extremity: Impaired Transfers Functional Tiller Measure 0=Not Assessed/NA 4=Minimal Assistance 1=Total Assistance 5=Supervision or Setup 2=Maximal Assistance 6=Modified [place] 3=Moderate Assistance 7=Complete [place] Transfers (B, C, W/C) (FIM): 6 Scootin Rollin Supine to/from Sit: 6 Sit to/from Stand: 6 Gait Mode of Locomotion: Walk Anticipated Mode of Locomotion: Walk Gait (FIM): 5 Distance (FIM): 3=150 ft Distance: 400' Gait Level of Assist: 5 Gait Assistive Device: FWW Comments/Gait Description safe and functional with FWW Balance Sitting Static: Normal Sitting Dynamic: Normal Standing Static: Normal Standing Dynamic: Normal Assessment/Needs 76 y.o. male, will benefit from short term skilled PT to address functional strength and mobility to safely return to home with home health intervention. Rehab Potential: Good PT Short Term Goals Short Term Goals Time Frame: Apr 29, 2016 Transfers (B,C,W/C) (FIM): 6 Gait (FIM): 6 Distance (FIM): 3=150 ft Gait Distance Comment: 400' Gait Level of Assist: 6 Gait Assistive Device: FWW PT Plan Problem List Problem List: Activity Tolerance, Functional Strength Treatment/Plan Treatment Plan: Continue Plan of Care Treatment Plan: Education, Functional Activity Kevan, Functional Strength, Gait , Safety, Therapeutic Exercise, Transfers Treatment Duration: Apr 29, 2016 # of days/week 5-6 Visits Per Week: 5-6 Pt/Family Agrees w/Plan: Yes Safety Risks/Education Patient Education: Safety Issues Teaching Recipient: Patient Teaching Methods: Discussion Response to Teaching: Verbalize Understanding Discharge Recommendations Therapy D/C Recommendations: Physical Therapy Home Care Time/GCodes Time In: 920 Time Out: 940 Total Billed Treatment Time: 20 Total Billed Treatment 1 visit EVLowC 20 min SRI ABDI PT Apr 24, 2016 11:12
[2016-04-24] MEDS: ALFUZOSIN HCL 10 MG TAB (UROXATRAL) PO SCH (17:40)
--- NOTE | 2016-04-24 19:13 | Progress Note (SOAP) ---
Subjective Subjective/Events-last exam Fwup acute GI Hemorrhage, acute anemia due to blood loss, chronic atrial fibrillation, HTN, diabetes mellitus. Patient complains of weak. Does not want to go back on eliquis due to the bleeding. Does agree to retry aspirin. Objective Exam Vital Signs Date Time Temp Pulse Resp B/P Pulse Ox O2 Delivery O2 Flow Rate FiO2 04/24/16 16:00 96.6 59 20 150/69 98 Room Air 04/24/16 13:00 59 04/24/16 12:36 59 04/24/16 12:00 97.6 60 20 149/64 98 Room Air 04/24/16 08:00 98.9 67 28 149/67 94 Room Air 04/24/16 07:00 60 04/24/16 04:00 99.1 60 18 132/63 96 Room Air 04/24/16 01:00 59 04/24/16 00:00 98.7 60 18 124/55 97 Room Air 04/23/16 21:00 Room Air 04/23/16 20:00 98.2 61 20 128/67 96 Room Air I & O 04/24/16 07:00 Intake Total 2730 ml Output Total 800 ml Balance 1930 ml Capillary Refill : Less Than 3 SecondsLess Than 3 Seconds General Appearance: No Apparent Distress Neck: Supple Respiratory: Lungs Clear Cardiovascular: Regular Rate, Rhythm Systolic Murmur Gallop/S3 Irregularly Irregular Gastrointestinal: normal bowel sounds non tender soft Extremity: Non Tender No Calf Tenderness No Pedal Edema Neurologic/Psychiatric: Alert Oriented x3 Results Lab Laboratory Tests 04/23/16 21:22: Glucometer 283H 04/24/16 05:30: Glucometer 113H 04/24/16 06:12: Alanine Aminotransferase (ALT/SGPT) 25, Albumin 3.1L, Alkaline Phosphatase 88, Anion Gap 7, Aspartate Amino Transf (AST/SGOT) 17, BUN/Creatinine Ratio 21, Basophils # (Auto) 0.0, Basophils (%) (Auto) 0, Blood Urea Nitrogen 18, Calcium Level 8.0L, Carbon Dioxide Level 23, Chloride Level 108H, Creatinine 0.87, Eosinophils # (Auto) 0.1, Eosinophils (%) (Auto) 2, Estimat Glomerular Filtration Rate > 60, Glucose Level 100, Hematocrit 29L, Hemoglobin 9.4L, Lymphocytes # (Auto) 0.9L, Lymphocytes (%) (Auto) 15, Mean Corpuscular Hemoglobin 28, Mean Corpuscular Hemoglobin Concent 32, Mean Corpuscular Volume 88, Mean Platelet Volume 10.8H, Monocytes # (Auto) 0.4, Monocytes (%) (Auto) 6, Neutrophils # (Auto) 4.8, Neutrophils (%) (Auto) 77H, Platelet Count 206, Potassium Level 3.6, Red Blood Count 3.34L, Red Cell Distribution Width 17.9H, Sodium Level 138, Total Bilirubin 1.1H, Total Protein 5.2L, White Blood Count 6.3 04/24/16 11:23: Glucometer 221H 04/24/16 16:06: Glucometer 119H Microbiology 04/21/16 Blood Culture - Preliminary, Resulted No growth 04/21/16 Urine Culture - Final, Complete NO GROWTH Assessment/Plan Assessment/Plan Assess & Plan/Chief Complaint 1. Acute GI Hemorrhage--continue protonix, EGD showed no active bleeding, colonoscopy showed polyps/diverticulosis/internal hemorrhoids, H/H is stable so will restart low dose aspirin and see how does--if H/H drop or return of melena then will need to consider capsule endoscopy 2. Acute Anemia due to Acute Blood Loss--S/P transfusion, H/H stable 3. Hypertension--back on metoprolol 4. Diabetes mellitus II--continue accuchecks with SSI 5. Weakness--resume PT 6. Atrial Fibrillation--rate controlled, blood thinners on hold due to GI Bleed and patient refuses to restart eliquis despite being told of his stroke risk Diagnosis/Problems: Clinical Quality Measures DVT/VTE Risk/Contraindication: Risk Factor Score Per Nursin RFS Level Per Nursing on Admit: 2=Moderate Stroke: Date of last known well: Apr 20, 2016 GLADYS ORONA DO Apr 24, 2016 7:13 pm
[2016-04-25 04:00] VITALS: BP 145/62
[2016-04-25] MEDS: inSUlin (REGULAR) HUMAN 1 UNIT/0.01 ML (CHARGE PER UNIT) SC SCH ×4 (05:15→21:00)
--- NOTE | 2016-04-25 05:43 | Progress Note (SOAP) ---
Subjective Subjective/Events-last exam Fwup acute GI Hemorrhage, acute anemia due to blood loss, chronic atrial fibrillation, HTN, diabetes mellitus. Appetite good. States stools are back to brown and not black anymore. Objective Exam Vital Signs Date Time Temp Pulse Resp B/P Pulse Ox O2 Delivery O2 Flow Rate FiO2 04/25/16 04:00 97.6 60 18 145/62 95 Room Air 04/25/16 01:00 59 04/24/16 23:55 97.6 61 16 150/67 96 Room Air 04/24/16 20:40 97.3 55 18 141/56 95 Room Air 04/24/16 19:00 59 04/24/16 16:00 96.6 59 20 150/69 98 Room Air 04/24/16 13:00 59 04/24/16 12:36 59 04/24/16 12:00 97.6 60 20 149/64 98 Room Air 04/24/16 08:00 98.9 67 28 149/67 94 Room Air 04/24/16 07:00 60 I & O 04/25/16 07:00 Intake Total 2285 ml Output Total 875 ml Balance 1410 ml Capillary Refill : Less Than 3 SecondsLess Than 3 Seconds General Appearance: No Apparent Distress Neck: Supple Respiratory: Lungs Clear Cardiovascular: Systolic Murmur Gallop/S3 Irregularly Irregular Gastrointestinal: normal bowel sounds non tender soft Extremity: Non Tender No Calf Tenderness No Pedal Edema Neurologic/Psychiatric: Alert Oriented x3 Results Lab Laboratory Tests 04/24/16 06:12: Alanine Aminotransferase (ALT/SGPT) 25, Albumin 3.1L, Alkaline Phosphatase 88, Anion Gap 7, Aspartate Amino Transf (AST/SGOT) 17, BUN/Creatinine Ratio 21, Basophils # (Auto) 0.0, Basophils (%) (Auto) 0, Blood Urea Nitrogen 18, Calcium Level 8.0L, Carbon Dioxide Level 23, Chloride Level 108H, Creatinine 0.87, Eosinophils # (Auto) 0.1, Eosinophils (%) (Auto) 2, Estimat Glomerular Filtration Rate > 60, Glucose Level 100, Hematocrit 29L, Hemoglobin 9.4L, Lymphocytes # (Auto) 0.9L, Lymphocytes (%) (Auto) 15, Mean Corpuscular Hemoglobin 28, Mean Corpuscular Hemoglobin Concent 32, Mean Corpuscular Volume 88, Mean Platelet Volume 10.8H, Monocytes # (Auto) 0.4, Monocytes (%) (Auto) 6, Neutrophils # (Auto) 4.8, Neutrophils (%) (Auto) 77H, Platelet Count 206, Potassium Level 3.6, Red Blood Count 3.34L, Red Cell Distribution Width 17.9H, Sodium Level 138, Total Bilirubin 1.1H, Total Protein 5.2L, White Blood Count 6.3 04/24/16 11:23: Glucometer 221H 04/24/16 16:06: Glucometer 119H 04/24/16 20:51: Glucometer 177H 04/25/16 05:13: Glucometer 139H Microbiology 04/21/16 Blood Culture - Preliminary, Resulted No growth 04/21/16 Urine Culture - Final, Complete NO GROWTH Assessment/Plan Assessment/Plan Assess & Plan/Chief Complaint 1. Acute GI Hemorrhage--continue protonix, EGD showed no active bleeding, colonoscopy showed polyps/diverticulosis/internal hemorrhoids, H/H is stable so will restart low dose aspirin and see how does--if H/H drop or return of melena then will need to consider capsule endoscopy 2. Acute Anemia due to Acute Blood Loss--S/P transfusion, H/H stable 3. Hypertension--back on metoprolol 4. Diabetes mellitus II--continue accuchecks with SSI 5. Weakness--resume PT, Rehab evaluation 6. Atrial Fibrillation--rate controlled, blood thinners on hold due to GI Bleed and patient refuses to restart eliquis or any other blood thinners despite being told of his stroke risk Diagnosis/Problems: Clinical Quality Measures DVT/VTE Risk/Contraindication: Risk Factor Score Per Nursin RFS Level Per Nursing on Admit: 2=Moderate Stroke: Date of last known well: Apr 20, 2016 GLADYS ORONA DO Apr 25, 2016 5:43 am
[2016-04-25] MEDS: ASPIRIN E.C. 81 MG (ECOTRIN) TAB PO SCH (08:43)
[2016-04-25] MEDS: PANTOPRAZOLE 40 MG/10 ML (PROTONIX) VIAL IV SCH ×2 (08:43→22:31)
[2016-04-25] MEDS: FINASTERIDE (PROSCAR) 5 MG TAB PO SCH (08:43)
[2016-04-25 08:57] VITALS: BP 135/63
--- NOTE | 2016-04-25 09:29 | Physical Therapy Daily Note ---
PT Daily Note-Current Subjective Patient is in bed and agrees to PT. Patient states he is feeling much better today. Pain Numeric Pain Scale: 0-No Pain Location: No Pain Reported Mental Status Patient Orientation: Normal For Age Transfers Functional Bent Measure 0=Not Assessed/NA 4=Minimal Assistance 1=Total Assistance 5=Supervision or Setup 2=Maximal Assistance 6=Modified Bent 3=Moderate Assistance 7=Complete IndependenceIRFPAI Quality Coding Scale 6 Independent with activity with or without an assistive device 5 Patient requires set up or clean up by helper. Patient completes activity by themselves 4 Supervision or touching assist (CGA). [place] provide cues , steadying assist 3 The helper provides less than half the effort to complete the activity 2 The helper provides more than half the effort to complete the activity 1 Dependent. The helper does all the effort to complete an activity 7 Patient refused to complete or attempt activity 9 The patient did not perform the activity before the current illness or injury 88 Not attempted due to Medical conditions or safety concerns Transfers (B, C, W/C) (FIM): 6 Scootin Rollin Supine to/from Sit: 6 Sit to/from Stand: 6 Gait Training Gait (FIM): 6 Distance (FIM): 3=150 ft Distance: 550' Gait Level of Assist: 6 Gait Assistive Device: FWW safe and functional with FWW Exercises Supine Ex: Ankle pumps, Quad Set, Heel Slides, Straight leg raise Supine Reps: 25 Seated Therapy Exercises: Ankle pumps, Long arc quads Seated Reps: 25 Assessment Patient feeling better and performing gross motor skills increasing better. Patient is currently at [facility] with gross motor skills. PT will continue to ensure safe return to home with home health intervention. PT Short Term Goals Short Term Goals Time Frame: Apr 29, 2016 Transfers (B,C,W/C) (FIM): 6 (met 04/25/16) Gait (FIM): 6 (met 04/25/16) Distance (FIM): 3=150 ft Gait Distance Comment: 400' Gait Level of Assist: 6 (met 04/25/16) Gait Assistive Device: FWW PT Plan Treatment/Plan Treatment Plan: Continue Plan of Care Treatment Plan: Education, Functional Activity Kevan, Functional Strength, Gait , Safety, Therapeutic Exercise, Transfers Treatment Duration: Apr 29, 2016 Visits Per Week: 5-6 Discharge Recommendations Therapy D/C Recommendations: Physical Therapy Home Care Time/GCodes Time In: 902 Time Out: 925 Total Billed Treatment Time: 23 Total Billed Treatment 1 visit FA 13 min EX 10 min SRI ABDI PT Apr 25, 2016 09:28
[2016-04-25 12:50] VITALS: BP 143/66
[2016-04-25 16:00] VITALS: BP 158/65
[2016-04-25] MEDS: ALFUZOSIN HCL 10 MG TAB (UROXATRAL) PO SCH (17:10)
[2016-04-25 20:00] VITALS: BP 141/66
[2016-04-26] VITALS: BP 139/63
[2016-04-26 04:00] VITALS: BP 140/62
[2016-04-26 05:23] LABS: BASOPHILS % (AUTO) 0 % (0-10); EOSINOPHILS # (AUTO) 0.1 10^3/uL (0.0-0.3); EOSINOPHILS % (AUTO) 3 % (0-10); LYMPHOCYTES # (AUTO) 0.9 X 10^3 (1.0-4.0); LYMPHOCYTES % (AUTO) 21 % (12-44); MEAN CORPUSCULAR HEMOGLOBIN 28 PG (25-34); MEAN CORPUSCULAR HGB CONC 32 G/DL (32-36); MEAN CORPUSCULAR VOLUME 88 FL (80-99); MEAN PLATELET VOLUME 10.1 FL (7.4-10.4); MONOCYTES # (AUTO) 0.4 X 10^3 (0.0-1.0); MONOCYTES % (AUTO) 10 % (0-12); NEUTROPHILS # (AUTO) 2.9 X 10^3 (1.8-7.8); NEUTROPHILS % (AUTO) 66 % (42-75); PLATELET COUNT 205 10^3/uL (130-400); RED BLOOD COUNT 3.29 10^6/uL (4.35-5.85); RED CELL DISTRIBUTION WIDTH 17.3 % (10.0-14.5); WHITE BLOOD COUNT 4.4 10^3/uL (4.3-11.0)
[2016-04-26] MEDS: inSUlin (REGULAR) HUMAN 1 UNIT/0.01 ML (CHARGE PER UNIT) SC SCH ×4 (06:00→21:00)
[2016-04-26 08:00] VITALS: BP 132/66
--- NOTE | 2016-04-26 09:55 | Progress Note (SOAP) ---
Subjective Subjective/Events-last exam 76 yo M with gi bleed- no new bleeding episodes. FOBT was positive. Pt family wants him to go to rehab- Rehab assessment reports pt does not qualify because he is at his previous functioning level. Pt reports he is not ready to go home and keeps getting send home too early. Pt not interested in SNF as he need care for his pets. Denies emesis, chest pain. Review of Systems General: No Night Sweats HEENT: No Head Aches, No Visual Changes Pulmonary: No Dyspnea, Cough Cardiovascular: No: Chest Pain, Palpitations Gastrointestinal: : Abdominal PainNo: Nausea, Vomiting Genitourinary: No Dysuria, No Frequency Musculoskeletal: No: shoulder pain Neurological: : Weakness Objective Exam Vital Signs Date Time Temp Pulse Resp B/P Pulse Ox O2 Delivery O2 Flow Rate FiO2 04/26/16 08:00 98.6 66 18 132/66 96 Room Air 04/26/16 04:00 98.4 62 18 140/62 98 Room Air 04/26/16 01:16 59 04/26/16 00:00 98.7 60 18 139/63 95 Room Air 04/25/16 20:00 96.1 60 18 141/66 97 Room Air 04/25/16 19:00 60 04/25/16 16:00 97.5 60 16 158/65 100 Room Air 04/25/16 13:12 59 04/25/16 12:50 97.4 54 18 143/66 97 Room Air I & O 04/26/16 07:00 Intake Total 1400 ml Output Total 525 ml Balance 875 ml Capillary Refill : Less Than 3 SecondsLess Than 3 Seconds General Appearance: No Apparent Distress WD/WN HEENT: PERRL/EOMI Neck: Non Tender Supple Respiratory: Chest Non Tender No Accessory Muscle Use No Respiratory Distress Cardiovascular: Regular Rate, Rhythm Gastrointestinal: non tender soft Extremity: Pedal Edema Neurologic/Psychiatric: Alert Oriented x3 Skin: Warm/Dry Results Lab Laboratory Tests 04/25/16 10:50: Glucometer 205H 04/25/16 16:07: Glucometer 125H 04/25/16 18:30: Stool Occult Blood Immunoassay POSITIVEH 04/25/16 21:45: Glucometer 165H 04/26/16 04:40: Basophils # (Auto) 0.0, Basophils (%) (Auto) 0, Eosinophils # (Auto) 0.1, Eosinophils (%) (Auto) 3, Hematocrit 29L, Hemoglobin 9.3L, Lymphocytes # (Auto) 0.9L, Lymphocytes (%) (Auto) 21, Mean Corpuscular Hemoglobin 28, Mean Corpuscular Hemoglobin Concent 32, Mean Corpuscular Volume 88, Mean Platelet Volume 10.1, Monocytes # (Auto) 0.4, Monocytes (%) (Auto) 10, Neutrophils # ( Auto) 2.9, Neutrophils (%) (Auto) 66, Platelet Count 205, Red Blood Count 3.29L , Red Cell Distribution Width 17.3H, White Blood Count 4.4 04/26/16 05:54: Glucometer 137H Microbiology 04/21/16 Blood Culture - Preliminary, Resulted No growth 04/21/16 Urine Culture - Final, Complete NO GROWTH Assessment/Plan Assessment/Plan Assess & Plan/Chief Complaint 76 yo M acute GI bleed- continue protonix PO BID, EGD no active bleed, colonoscopy with polyps/diverticula/hemorrhoids. H/H stable. Dr. Low was consulted at admission. Capsule endoscopy? acute blood loss anemia- hgb stable s/p 2units pRBC transfusion 04/22/16 HTN- metoprolol atrial fibrillation- asa, was on eliquis- currently held- pt does not want to restart it debility/weakness- PT, rehab to evaluate pt did not qualify- [facility] is ready to resume care when he is discharged. Diabetes mellitus II- SSI Dispo: will recheck H/H in AM- Dr. Moon to see pt as outpt- will determine at that time to do a capsule endoscopy study. Pt to resume [facility] PT on discharge. [facility] is aware. Diagnosis/Problems: Clinical Quality Measures DVT/VTE Risk/Contraindication: Risk Factor Score Per Nursin RFS Level Per Nursing on Admit: 2=Moderate Stroke: Date of last known well: Apr 20, 2016 BELIA ZHANG MD Apr 26, 2016 09:55
--- NOTE | 2016-04-26 10:06 | Physical Therapy Daily Note ---
PT Daily Note-Current Subjective Pt sitting up in bed upon arrival. Pt reports feeling pretty good. Pt agreed to walk for PT. Pain Numeric Pain Scale: 0-No Pain Location: No Pain Reported Mental Status Patient Orientation: Person, Place, Time, Situation Transfers Functional [place] Measure 0=Not Assessed/NA 4=Minimal Assistance 1=Total Assistance 5=Supervision or Setup 2=Maximal Assistance 6=Modified [place] 3=Moderate Assistance 7=Complete IndependenceIRFPAI Quality Coding Scale 6 Independent with activity with or without an assistive device 5 Patient requires set up or clean up by helper. Patient completes activity by themselves 4 Supervision or touching assist (CGA). [place] provide cues , steadying assist 3 The helper provides less than half the effort to complete the activity 2 The helper provides more than half the effort to complete the activity 1 Dependent. The helper does all the effort to complete an activity 7 Patient refused to complete or attempt activity 9 The patient did not perform the activity before the current illness or injury 88 Not attempted due to Medical conditions or safety concerns Transfers (B, C, W/C) (FIM): 6 Scootin Rollin Supine to/from Sit: 6 Sit to/from Stand: 6 Weight Bearing Weight Bearing Restriction: Full Weight Bearing Location Restriction: LE Bilateral Gait Training Distance (FIM): 3=150 ft Distance: 250' Gait Level of Assist: 6 Gait Persons Needed: 1 Gait Assistive Device: FWW Pt walks with normalized gait pattern but becomes fatigued and returns to room to rest. Treatments Pt transferred from bed to standing at Mod I using FWW. Pt ambulates in hallway using FWW at Mod I until fatigues. Pt returns to room at EOB at Mod I Pt then decides he needs to use restroom. Pt returns to supine in bed after using restroom. Pt is left with all needs met at end of tx. Assessment Current Status: Good Progress Pt performs transfers and gait safely and at Mod I. PT Short Term Goals Short Term Goals Time Frame: Apr 29, 2016 Transfers (B,C,W/C) (FIM): 6 Gait (FIM): 6 Distance (FIM): 3=150 ft Gait Distance Comment: 400' Gait Level of Assist: 6 Gait Assistive Device: FWW PT Plan Problem List Problem List: Activity Tolerance Treatment/Plan Treatment Plan: Continue Plan of Care Treatment Plan: Education, Functional Activity Kevan, Functional Strength, Gait , Safety, Therapeutic Exercise, Transfers Treatment Duration: Apr 29, 2016 Visits Per Week: 5-6 Safety Risks/Education Patient Education: Gait Training, Transfer Techniques, Correct Positioning, Safety Issues Teaching Recipient: Patient Teaching Methods: Discussion Response to Teaching: Verbalize Understanding Time/GCodes Time In: 915 Time Out: 940 Total Billed Treatment Time: 25 Total Billed Treatment visit, GT (15m) & FA (10m) BRANDON BLACK PTA Apr 26, 2016 10:06
[2016-04-26] MEDS: ASPIRIN E.C. 81 MG (ECOTRIN) TAB PO SCH (10:23)
[2016-04-26] MEDS: FINASTERIDE (PROSCAR) 5 MG TAB PO SCH (10:24)
[2016-04-26] MEDS: PANTOPRAZOLE 40 MG/10 ML (PROTONIX) VIAL IV SCH (10:24)
[2016-04-26 12:00] VITALS: BP 170/72
[2016-04-26 16:00] VITALS: BP 142/67
[2016-04-26] MEDS: ALFUZOSIN HCL 10 MG TAB (UROXATRAL) PO SCH (17:20)
[2016-04-26 19:55] VITALS: BP 137/66
[2016-04-26] MEDS: PANTOPRAZOLE 40 MG (PROTONIX) TAB PO SCH (21:40)
[2016-04-27] VITALS (7 sets, daily range): BP systolic 138–178; BP diastolic 60–73
[2016-04-27] MEDS: inSUlin (REGULAR) HUMAN 1 UNIT/0.01 ML (CHARGE PER UNIT) SC SCH ×4 (06:00→20:47)
[2016-04-27 06:22] LABS: BASOPHILS % (AUTO) 0 % (0-10); EOSINOPHILS # (AUTO) 0.1 10^3/uL (0.0-0.3); EOSINOPHILS % (AUTO) 3 % (0-10); LYMPHOCYTES # (AUTO) 0.9 X 10^3 (1.0-4.0); LYMPHOCYTES % (AUTO) 20 % (12-44); MEAN CORPUSCULAR HEMOGLOBIN 28 PG (25-34); MEAN CORPUSCULAR HGB CONC 32 G/DL (32-36); MEAN CORPUSCULAR VOLUME 89 FL (80-99); MEAN PLATELET VOLUME 10.5 FL (7.4-10.4); MONOCYTES # (AUTO) 0.5 X 10^3 (0.0-1.0); MONOCYTES % (AUTO) 11 % (0-12); NEUTROPHILS # (AUTO) 2.9 X 10^3 (1.8-7.8); NEUTROPHILS % (AUTO) 66 % (42-75); PLATELET COUNT 202 10^3/uL (130-400); RED BLOOD COUNT 3.33 10^6/uL (4.35-5.85); RED CELL DISTRIBUTION WIDTH 17.3 % (10.0-14.5); WHITE BLOOD COUNT 4.4 10^3/uL (4.3-11.0)
[2016-04-27] MEDS: ASPIRIN E.C. 81 MG (ECOTRIN) TAB PO SCH (08:13)
[2016-04-27] MEDS: FINASTERIDE (PROSCAR) 5 MG TAB PO SCH (08:13)
[2016-04-27] MEDS: PANTOPRAZOLE 40 MG (PROTONIX) TAB PO SCH ×2 (08:13→21:28)
--- NOTE | 2016-04-27 08:39 | OPERATIVE REPORT ---
PROCEDURE PHYSICIAN: CHRISTEL LOW DATE OF PROCEDURE: 04/22/2016 PREOPERATIVE DIAGNOSIS: GI bleed. POSTOPERATIVE DIAGNOSIS: Duodenitis, small hiatal hernia. PROCEDURE: Esophagogastroduodenoscopy with duodenal biopsy. SURGEON: Dr. Low STAMP REDEMPTION CLERK: None. ANESTHESIA: IV sedation by DRAW OPERATOR. BLOOD LOSS: Scant. SPECIMEN: Duodenal biopsy. FLUIDS: Per anesthesia. POSTOPERATIVE CONDITION: Stable. INDICATION FOR THE PROCEDURE: The patient is a 76-year-old male who came in with some anemia, melena and needed a work-up and elected to start with an EGD. FINDINGS: The patient had some mild inflammation in the duodenum and he had a small hiatal hernia. No other obvious pathology seen. PROCEDURE NOTE: After informed consent was obtained patient brought to the endoscopy suite, placed in the left lateral decubitus position. The scope was then inserted through the mouth down the oropharynx, into the esophagus and down into the stomach, past into the antrum, through into the small intestine. The first portion of the duodenum had a little bit of inflammation some mild redness. Biopsies were done, took pictures and then pulled back - took picture of the antrum. There was not really much redness in the stomach, distended it with air to look around. Did not see any obvious pathology. Retroflexed, saw small hiatal hernia and then slowly withdrew the scope through the stomach, through the GE junction. The Z-line looked fine and then up the esophagus and out. The patient tolerated the procedure and he was transferred to recovery room in stable condition. Job ID: [id number] Dictated Date: 04/25/2016 10:37:26 Hood Fitter Date: 04/27/2016 08:31:51 / usha
--- NOTE | 2016-04-27 08:49 | OPERATIVE REPORT ---
PROCEDURE PHYSICIAN: CHRISTEL LOW DATE OF PROCEDURE: 04/23/2016 PREOPERATIVE DIAGNOSIS: GI bleed, anemia. POSTOPERATIVE DIAGNOSIS: 1. Colon polyps in the transverse and rectum. 2. Diverticula. 3. Internal hemorrhoids. PROCEDURE: Colonoscopy snare polypectomy. SURGEON: Dr. Low PLASTERER ROUGH: None. ANESTHESIA: IV sedation by RAILROAD CAR CLEANER. BLOOD LOSS: Scant. SPECIMEN: One polyp from transverse colon and one rectal polyp. INDICATION FOR THE PROCEDURE: The patient is a 76-year-old male who is admitted to hospital with weakness, found to have melena and anemia. He needed a work-up. Had an EGD previously which did not show any obvious reasons for his anemia and melena. FINDINGS: The patient had 2 colon polyps, one in the transverse colon and one in the rectum. He also had diverticula, multiple small ones to the sigmoid and descending colon, but no large masses. Very small internal hemorrhoids, possibly grade 1 or 2 but not really reason for his anemia. PROCEDURE NOTE: After informed consent was obtained the patient was brought to the endoscopy suite, placed in the left lateral position. He was administered IV sedation. RAILROAD CAR CLEANER monitored his vitals. The scope was inserted. On the way in noted some diverticula. Took pictures of this. Pushed all the way to 150 centimeters, able to get to the cecum, took pictures of the appendiceal orifice and of the ileocecal valve and slowly withdrew the scope insufflating, looked at circumferential lopez and the cecum. Up the ascending colon to the hepatic flexure and then down the transverse colon. In the transverse colon saw a small, flat, sessile polyp. Elected to do a snare polypectomy of this. Able to get this and one piece and then continued down the colon to the splenic flexure and then down the descending colon into the sigmoid and finally into the rectum. In the rectum saw another polyp did a snare polypectomy of this as well. Retroflexed in the rectal vault saw some internal hemorrhoids. Took a picture and then removed the scope. The patient tolerated the procedure and transferred to recovery room in stable condition. Job ID: [id number] Dictated Date: 04/25/2016 10:40:06 Clinical Applications Manager Date: 04/27/2016 08:38:34 / usha
--- NOTE | 2016-04-27 13:33 | Progress Note (SOAP) ---
Subjective Subjective/Events-last exam GI bleed- no signs of blood- last few BM were normal color- Hgb stable, low 9. Pt family tell him he cant go home- he needs rehab. Rehab said he did not quality- Pt was refusing SNU but today he is willing to go to Rehab or SNU. Tolerating diet. He also unsure of if he wants to resume his anticoagulant. Review of Systems General: No Chills, No Night Sweats HEENT: No Head Aches Pulmonary: No Cough Cardiovascular: No: Chest Pain, Palpitations Gastrointestinal: No: Abdominal Pain, Constipation, Nausea, Vomiting Genitourinary: No Dysuria, No Frequency Musculoskeletal: No: shoulder pain Neurological: : Weakness Objective Exam Vital Signs Date Time Temp Pulse Resp B/P Pulse Ox O2 Delivery O2 Flow Rate FiO2 04/27/16 12:37 97.0 70 18 152/68 98 Room Air 04/27/16 08:10 97.9 72 20 168/72 98 Room Air 04/27/16 07:00 60 04/27/16 04:00 98.4 74 19 178/73 98 Room Air 04/27/16 01:00 60 04/27/16 00:00 97.2 60 16 150/69 91 Room Air 04/26/16 19:55 97.8 62 18 137/66 97 Room Air 04/26/16 19:00 60 04/26/16 16:00 97.6 60 18 142/67 96 Room Air I & O 04/27/16 07:00 Intake Total 2320 ml Output Total 490 ml Balance 1830 ml Capillary Refill : Less Than 3 SecondsLess Than 3 Seconds General Appearance: No Apparent Distress HEENT: PERRL/EOMI Neck: Non Tender Supple Respiratory: Chest Non Tender Lungs Clear Cardiovascular: Regular Rate, Rhythm Gastrointestinal: non tender soft Extremity: Non Tender Pedal Edema Neurologic/Psychiatric: Alert Oriented x3 Skin: Warm/Dry Results Lab Laboratory Tests 04/26/16 15:53: Glucometer 291H 04/26/16 21:39: Glucometer 97 04/27/16 05:50: Basophils # (Auto) 0.0, Basophils (%) (Auto) 0, Eosinophils # (Auto) 0.1, Eosinophils (%) (Auto) 3, Hematocrit 30L, Hemoglobin 9.3L, Lymphocytes # (Auto) 0.9L, Lymphocytes (%) (Auto) 20, Mean Corpuscular Hemoglobin 28, Mean Corpuscular Hemoglobin Concent 32, Mean Corpuscular Volume 89, Mean Platelet Volume 10.5H, Monocytes # (Auto) 0.5, Monocytes (%) (Auto) 11, Neutrophils # ( Auto) 2.9, Neutrophils (%) (Auto) 66, Platelet Count 202, Red Blood Count 3.33L , Red Cell Distribution Width 17.3H, White Blood Count 4.4 04/27/16 06:13: Glucometer 128H 04/27/16 11:30: Glucometer 197H Microbiology 04/21/16 Blood Culture - Final, Complete No growth 04/21/16 Urine Culture - Final, Complete NO GROWTH Assessment/Plan Assessment/Plan Assess & Plan/Chief Complaint 76 yo M acute GI bleed- continue protonix PO BID, EGD no active bleed, colonoscopy with polyps/diverticula/hemorrhoids. H/H stable. Dr. Low was consulted at admission. Capsule endoscopy? acute blood loss anemia- hgb stable s/p 2units pRBC transfusion 04/22/16 HTN- metoprolol atrial fibrillation- asa, was on eliquis- currently held- pt does not know what to do - he is back and forth in regards to restarting it. debility/weakness- PT, rehab - pt did not qualify- [facility] is ready to resume care when he is discharged. Diabetes mellitus II- SSI Dispo: Dr. Moon to see pt as outpt- will determine at that time to do a capsule endoscopy study. Pt now says he wants to go Rehab or SNU- previously he was refusing to go to SNU because of his dog at home but he will board it he said. Pt is flip flopping on issues. He plans to discuss it tomorrow with Dr. Clemente. Pt should be able to go to SNU for PT/OT. Diagnosis/Problems: Clinical Quality Measures DVT/VTE Risk/Contraindication: Risk Factor Score Per Nursin RFS Level Per Nursing on Admit: 2=Moderate Stroke: Date of last known well: Apr 20, 2016 BELIA ZHANG MD Apr 27, 2016 13:32
[2016-04-27] MEDS: ALFUZOSIN HCL 10 MG TAB (UROXATRAL) PO SCH (17:06)
[2016-04-28] VITALS (7 sets, daily range): BP systolic 116–152; BP diastolic 52–70
[2016-04-28] MEDS: inSUlin (REGULAR) HUMAN 1 UNIT/0.01 ML (CHARGE PER UNIT) SC SCH ×4 (06:00→21:00)
[2016-04-28] MEDS: PANTOPRAZOLE 40 MG (PROTONIX) TAB PO SCH ×2 (08:26→21:39)
[2016-04-28] MEDS: ASPIRIN E.C. 81 MG (ECOTRIN) TAB PO SCH (08:26)
[2016-04-28] MEDS: FINASTERIDE (PROSCAR) 5 MG TAB PO SCH (08:26)
--- NOTE | 2016-04-28 14:51 | Physical Therapy Daily Note ---
PT Daily Note-Current Subjective Pt supine in bed with head raised upon arrival. Pt agrees to walk with PT for tx. Pain Numeric Pain Scale: 0-No Pain Location: No Pain Reported Mental Status Patient Orientation: Person, Place, Time, Situation Transfers Functional [place] Measure 0=Not Assessed/NA 4=Minimal Assistance 1=Total Assistance 5=Supervision or Setup 2=Maximal Assistance 6=Modified [place] 3=Moderate Assistance 7=Complete IndependenceIRFPAI Quality Coding Scale 6 Independent with activity with or without an assistive device 5 Patient requires set up or clean up by helper. Patient completes activity by themselves 4 Supervision or touching assist (CGA). [place] provide cues , steadying assist 3 The helper provides less than half the effort to complete the activity 2 The helper provides more than half the effort to complete the activity 1 Dependent. The helper does all the effort to complete an activity 7 Patient refused to complete or attempt activity 9 The patient did not perform the activity before the current illness or injury 88 Not attempted due to Medical conditions or safety concerns Transfers (B, C, W/C) (FIM): 6 Scootin Rollin Supine to/from Sit: 6 Sit to/from Stand: 6 Weight Bearing Weight Bearing Restriction: Full Weight Bearing Location Restriction: LE Bilateral Gait Training Gait (FIM): 5 Distance (FIM): 3=150 ft Distance: 350' Gait Level of Assist: 6 Gait Persons Needed: 1 Gait Assistive Device: FWW Pt walks with normalized gait pattern and no LOB. Pt fatigues and needs to return to room. Treatments Pt transfers from supine to EOB to standing at Mod I using FWW. Pt ambulates to restroom before walking. After finished, pt ambulated in hallway using FWW at SBA. Pt returned to room to rest at EOB due to fatigue. Pt transferred back to supine at Mod I. Pt left with all needs met at end of tx. Assessment Current Status: Good Progress Pt is Mod I with all transfers and SBA with mobility. Pt reports discharging to [facility] tomorrow. PT Short Term Goals Short Term Goals Time Frame: Apr 29, 2016 Transfers (B,C,W/C) (FIM): 6 Gait (FIM): 6 Distance (FIM): 3=150 ft Gait Distance Comment: 400' Gait Level of Assist: 6 Gait Assistive Device: FWW PT Plan Problem List Problem List: Activity Tolerance, Functional Strength Treatment/Plan Treatment Plan: Continue Plan of Care Treatment Plan: Education, Functional Activity [place], Functional Strength, Gait , Safety, Therapeutic Exercise, Transfers Treatment Duration: Apr 29, 2016 Visits Per Week: 5-6 Safety Risks/Education Patient Education: Gait Training, Correct Positioning, Safety Issues Teaching Recipient: Patient Teaching Methods: Discussion Response to Teaching: Verbalize Understanding Time/GCodes Time In: 1425 Time Out: 1440 Total Billed Treatment Time: 15 Total Billed Treatment visit, GT (15m) BRANDON BLACK PTA Apr 28, 2016 14:51
[2016-04-28] MEDS: ALFUZOSIN HCL 10 MG TAB (UROXATRAL) PO SCH (17:22)
--- NOTE | 2016-04-28 21:34 | Progress Note (SOAP) ---
Subjective Subjective/Events-last exam Fwup acute GI Hemorrhage, acute anemia due to blood loss, chronic atrial fibrillation, HTN, diabetes mellitus. Patient agreeable to SNF for strengthening. Still does not want to go back on eliquis or xarelto. States would consider plavix as he never had issues with it. Objective Exam Vital Signs Date Time Temp Pulse Resp B/P Pulse Ox O2 Delivery O2 Flow Rate FiO2 04/28/16 20:00 97.6 77 20 116/56 98 Room Air 04/28/16 19:00 60 04/28/16 16:17 96.3 60 20 140/65 98 Room Air 04/28/16 13:00 60 04/28/16 12:02 96.1 04/28/16 11:00 97.0 60 18 152/70 97 Room Air 04/28/16 08:00 96.1 60 20 124/52 96 Room Air 04/28/16 07:00 66 04/28/16 04:20 98.8 60 18 148/60 92 Room Air 04/28/16 01:00 59 04/28/16 00:05 98.2 60 18 137/56 94 Room Air I & O 04/28/16 07:00 Intake Total 1080 ml Output Total 1300 ml Balance -220 ml Capillary Refill : Less Than 3 SecondsLess Than 3 Seconds General Appearance: No Apparent Distress Neck: Supple Respiratory: Lungs Clear Cardiovascular: Systolic Murmur Gallop/S3 Irregularly Irregular Extremity: Non Tender No Calf Tenderness No Pedal Edema Neurologic/Psychiatric: Alert Oriented x3 Results Lab Laboratory Tests 04/28/16 06:09: Glucometer 130H 04/28/16 11:39: Glucometer 227H 04/28/16 15:45: Glucometer 225H 04/28/16 21:08: Glucometer 145H Microbiology 04/21/16 Blood Culture - Final, Complete No growth 04/21/16 Urine Culture - Final, Complete NO GROWTH Assessment/Plan Assessment/Plan Assess & Plan/Chief Complaint 1. Acute GI Hemorrhage--continue protonix, EGD showed no active bleeding, colonoscopy showed polyps/diverticulosis/internal hemorrhoids, H/H is stable so with restart of low dose aspirin 2. Acute Anemia due to Acute Blood Loss--S/P transfusion, H/H stable 3. Hypertension--back on metoprolol 4. Diabetes mellitus II--continue accuchecks with SSI 5. Weakness--resume PT, agreeable to SNF 6. Atrial Fibrillation--rate controlled, blood thinners on hold due to GI Bleed and patient refuses to restart eliquis or any other blood thinners despite being told of his stroke risk, he states he never had problem with plavix but I explained to him that plavix does not have indication for A fib stroke prophylaxis Diagnosis/Problems: Clinical Quality Measures DVT/VTE Risk/Contraindication: Risk Factor Score Per Nursin RFS Level Per Nursing on Admit: 2=Moderate Stroke: Date of last known well: Apr 20, 2016 GLADYS ORONA DO Apr 28, 2016 9:33 pm
[2016-04-28] MEDS ORDERED: FURO40TA4 PO (21:41)
[2016-04-28] MEDS ORDERED: POTA10TA36 PO (21:41)
[2016-04-28] MEDS ORDERED: PANT40TA3 PO (21:41)
--- NOTE | 2016-04-28 21:43 | Discharge Inst-Skilled Nursing ---
Discharge Inst-Skilled NF Patient Instructions Goal: Return to home Consult/Follow Up/Orders Follow Up Appt.: 2 weeks Skilled NF Admit to: [facility] Certification (SNF) I certify that SNF services are required to be given on an inpatient basis because of the above named patient's need for assisted care on a continuing basis for the conditions(s) for which he/she was receiving inpatient hospital services prior to his/her transfer to the SNF. [facility] Facility Order: Mud Logger-Evaluate & Treat, Physical Therapy-Evaluate & Treat Discharge Diet: ADA Diet, Cardiac Diet Daily Activity as Tolerated: Yes New & Resume Previous Orders Other Instructions Accuchecks daily CBC in 1 week Pricila Clemente Apr 28, 2016 21:42 Pneu Vac Indicated: Yes PRICILA CLEMENTE DO Apr 28, 2016 9:43 pm
[2016-04-29] VITALS (7 sets, daily range): BP systolic 132–171; BP diastolic 62–67
[2016-04-29] MEDS: inSUlin (REGULAR) HUMAN 1 UNIT/0.01 ML (CHARGE PER UNIT) SC SCH ×4 (05:40→20:58)
[2016-04-29 07:15] LABS: MEAN PLATELET VOLUME 10.3 FL (7.4-10.4); RED BLOOD COUNT 3.45 10^6/uL (4.35-5.85); RED CELL DISTRIBUTION WIDTH 17.1 % (10.0-14.5); WHITE BLOOD COUNT 4.2 10^3/uL (4.3-11.0)
[2016-04-29] MEDS: PANTOPRAZOLE 40 MG (PROTONIX) TAB PO SCH ×2 (09:04→20:25)
[2016-04-29] MEDS: FINASTERIDE (PROSCAR) 5 MG TAB PO SCH (09:04)
[2016-04-29] MEDS: ASPIRIN E.C. 81 MG (ECOTRIN) TAB PO SCH (09:05)
--- NOTE | 2016-04-29 10:40 | Consultation-Cardiology ---
HPI-Cardiology Cardiology Consultation: Date of Consultation 04/29/16 Date of Admission 04-21-16 Attending Physician Gladys Clemente DO Admitting Physician Gladys Clemente DO Consulting Physician Ni Barrientos MD HPI: Chief Complaint: A-fib OAC GI bleed Mr. Lee is a 76 year old male admitted from home d/t GI bleed. He reports increasing weakness at home and dark, tarry bowel movements. He states he fell at home d/t considerable weakness he was unable to get himself up. He had home health and the home health staff found him on the floor at home. He reports no syncope or near syncope. He reports no c/o CP, palpitations. He reports no dyspnea that he can recall. No c/o LE edema. Review of Systems-Cardiology Review of Systems Constitutional: As described under HPI Eyes: No blurred vision, No drainage, No pain, No vision change Ears/Nose/Throat: No ear discharge, No ear pain, No nasal drainage, No ulcerations Respiratory: As described under HPI Cardiovascular: As described under HPI Gastrointestinal: No constipation, No diarrhea, No nausea, No vomiting, stool coloration changes (dark, tarry bowel movements) Genitourinary: No dysuria, No discharge, No frequency, No hematuria, No urgency Skin: No rash, No skin related problems, No ulcerations Psychiatric/Neurological: No anxiety, No depression, No focal weakness, No seizure, No syncope Hematologic: No bleeding abnormalities ULA-Pqtkle-Ngdfyq Hx Patient Social History Alcohol Use: Denies Use Recreational Drug Use: No Smoking Status: Current Everyday Smoker Type Used: Cigarettes Recent Foreign Travel: No Recent Infectious Disease Expo: No Hospitalization with Isolation: Denies Physical Abuse Screen: No Sexual Abuse: No Past Medical History PMH As described under Assessment. Family Medical History Family Medical History: He reports his mother had hypertension and a stroke. He also reports his sister had a stroke. Allergies and Home Medications Allergies Coded Allergies: No Known Drug Allergies (Unverified , 06/02/10) Home Medications Aspirin 81 Mg Tablet.dr #30 81 MG PO Q48H Prescribed by: CRIS JOSHI on 04/29/16 1056 Finasteride 5 Mg Tablet 5 MG PO DAILY (Reported) Furosemide 40 Mg Tablet #30 40 MG PO Q48H Prescribed by: GLADYS CLEMENTE on 04/28/162140 Glimepiride 2 Mg Tablet 4 MG PO DAILY (Reported) TAKES 2 (2MG) TABLETS Glimepiride 2 Mg Tablet 2 MG PO HS (Reported) Metoprolol Succinate 25 Mg Tab.sr.24h 25 MG PO HS (Reported) LAST FILLED #30 02-18-16 Pantoprazole Sodium 40 Mg Tablet. #60 40 MG PO BID Prescribed by: GLADYS CLEMENTE on 04/28/162140 Pioglitazone HCl 30 Mg Tablet 30 MG PO DAILY (Reported) Potassium Chloride 10 Meq Tab.er.prt #30 10 MEQ PO Q48H Prescribed by: GLADYS CLEMENTE on 04/28/162140 Simvastatin 40 Mg Tablet 40 MG PO HS (Reported) Sitagliptin Phosphate 100 Mg Tablet 100 MG PO DAILY (Reported) Tamsulosin HCl 0.4 Mg Cap.er.24h 0.4 MG PO HS (Reported) Physical Exam-Cardiology Physical Exam Vital Signs/I&O Vital Sign - Last 12Hours 04/29/16 04/29/16 04/29/16 04/29/16 07:00 08:12 12:10 13:00 Temp 98.6 97.0 Pulse 59 60 60 67 Resp 16 20 B/P 132/64 171/66 Pulse Ox 93 96 O2 Delivery Room Air Room Air Intake and Output 04/29/16 00:00 Intake Total 720 ml Output Total 1100 ml Balance -380 ml Capillary Refill : Less Than 3 SecondsLess Than 3 Seconds Constitutional: appears stated ageNo apparent distress, well-developed well- nourished HEENT: PERRLNo discharge, hearing is well preserved oral hygience is goodNo ulceration, No xanthelasmas are seen Neck: No carotid bruit, carotid pulses are 2 + bilaterally Cardiovascular: regular rate-rhythm (a-flutter with ventricular pacing)No JVD , S1 and S2 systolic murmur Gastrointestinal: No tender, soft roundNo spleenomegaly Rectal: deferred Extremities: No clubbing, No cyanosis, No significant edema Neurologic/Psychiatric: alert oriented x 3 power is 5/5 both on sides Skin: No rash, No ulcerations Lymphatic: no adenopathy (cervical or supraclavicular) Data Review Labs Laboratory Tests 04/28/16 21:08: Glucometer 145H 04/29/16 05:39: Glucometer 133H 04/29/16 06:45: Hematocrit 30L, Hemoglobin 9.4L, Mean Corpuscular Hemoglobin 27, Mean Corpuscular Hemoglobin Concent 31L, Mean Corpuscular Volume 88, Mean Platelet Volume 10.3, Platelet Count 208, Red Blood Count 3.45L, Red Cell Distribution Width 17.1H, White Blood Count 4.2L 04/29/16 10:35: Glucometer 226H 04/29/16 15:42: Glucometer 182H Microbiology 04/21/16 Blood Culture - Final, Complete No growth 04/21/16 Urine Culture - Final, Complete NO GROWTH Radiology NAME: KIRSTIN LEE [facility] REC#: [id number] PT STATUS: REG ER : 1940 PHYSICIAN: ZENOBIA MOORE MD ADMIT DATE: 04/21/16/ER Signed Date of Exam: 04/21/16 CT HEAD WO-R/O STROKE Indication: Weakness, fall CT head without contrast The ventricles are normal in size, shape and position. There are no masses or hemorrhages. There are no extra-axial fluid collections. There is mild atrophy. There is some decreased density in the periventricular white matter both cerebral hemispheres. 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 There is no CT evidence for an acute infarct. Dictated by: Dictated on workstation # [id number] Dict: 04/21/16 1051 Trans: 04/21/16 1052 [id number] Interpreted by: DEBI AMBROSE Electronically signed by:DEBI AMBROSE 04/21/16 1055 ECG Impression ECG Comment a-fib/flutter with ventricular pacing A/P-Cardiology Assessment/Admission Diagnosis Acute anemia of unknown source with melena likely d/t GI bleed, however upper and lower endoscopy did not show any active bleeding - being managed by medical/ surgical services (received 2 units PRBC) EGD by Dr. Low showed duodenitis with small hiatal hernia Colonoscopy of 04-23-[address] 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 The pacemaker is working normally per interrogation carried out on 02/27/16 Vertebrobasilar insufficiency, which has been followed by his Neurologist, Dr. Aguirre. H/o possible postural hypotension due to the patient's medication Echo of 04/08/[address] Blue: Biventricular systolic function is normal with an estimated left ventricular ejection fraction 65%. 2-D viewing does suggest underlying significant diastolic left ventricular dysfunction. Mild biatrial chamber dilatation is present. Tricuspid insufficiency is present. On this technically difficult study severity is difficult to surmise. RV systolic pressure is moderately elevated, estimated at 45 to 50 mmHg. The inferior vena cava was dilated and collapsed less than 50% on inspiration, indicative of increased right atrial pressure. Coronary artery disease primary consisting of a chronically occluded and collateralized right coronary artery and moderate mid-vessel disease of the left anterior descending artery, unchanged on his most recent cardiac catheterization of 09/20/2008. MPI of January 2015 showed no evidence of significant myocardial ischemia or infarction. Inferior/diaphragmatic wall perfusion is fixed and appears to be due diaphragmatic attenuation. Normal regional wall motion. LVEF 73% Aorta u/s showed no aneurysm involving the mid or distal abdominal aorta on ([facility], [place], [place]) Symptoms of intermittent hematuria. This has been diagnosed to be prostate hypertrophy and is being followed by his urologist, Dr Daniel Hypertension, controlled. Hyperlipidemia being treated with simvastatin, being followed by Dr Clemente. Maturity onset diabetes mellitus. Tobaccoism from which he has been advised to refrain. Moderate right internal carotid arterial disease with a diameter stenosis of approximately 40%. Moderate disease of the left common carotid with a diameter stenosis of approximately 49%. Mild left internal carotid artery disease with a diameter stenosis of 1-40% per carotid ultrasound of 07-30-2012. U/S from 08-11 showed mild to mod mixed bilat plaque involving both common and internal carotid arteries, without evidence of hemodynamic significance Chronic right bundle branch block. History of pulmonary nodule, which has previously been followed by Dr. Giang at [facility], we have referred him to Dr. Mulligan. This has been followed by Dr Mulligan and Dr Clemente. CT of showed 4mm RML nodule Chronic exertional dyspnea, clinically stable. Bilateral leg claudication which currently appears well controlled. History of right common angioplasty and right common iliac artery stenting with a 9 x 25 mm iliac artery stent followed by femoral-femoral crossover bypass grafting with a 7 mm straight EPTFE graft by Dr. Giang in March 2006. A Doppler study of February 2011 indicated bilateral aorto-femoral bypass grafting with patency of the visualized distal aspect of the graft at femoral anastomosis. There was considerable distal disease reported. He does report chronic 1-2 block leg claudication symptoms, but this unchanged Discussion and Recomendations Complex management issue. He has chronic a-fib which places him at risk for strokes. He was on OAC with Eliquis. However, he has now presented with acute bleeding of unknown source. He has undergone upper and lower endoscopy by Dr. Low, no obvious signs of bleeding were seen. He has received transfusions. H/H has improved he has had no further melena since OAC has been stopped. Consideration of capsule endoscopy is being considered per pt. At this time he is not a suitable candidate for OAC d/t GI bleed until source has been determined and treated. Patient does not wish to be on OAC at this time anyway. He is agreeable to ASA daily. This will not provide him as good coverage against stroke as other agents. We have discussed this with him in detail. We will cautiously start low dose ASA every other day. We advise close monitoring of blood counts as outpat. We will continue all other medications at this time. He is to transfer to SNF at [facility] later today. We will see him as an outpt. We would like to thank Dr. Clemente for this consult. This consult is being scribed by Tianna Joshi APRN on behalf of Dr. Barrientos after discussion regarding plan of care. Clinical Quality Measures DVT/VTE Risk/Contraindication: Risk Factor Score Per Nursin RFS Level Per Nursing on Admit: 2=Moderate Stroke: Date of last known well: Apr 20, 2016 Physician Assessment Physician Assessment Lungs: good air entry Cor: reg A&R * Complex management, as discussed in our note above * I spoke with him in detail and answered questions * ASA qod for now, monitor labs, then advance therapy if no bleeding and if approved by his other physicians CRIS JOSHI Apr 29, 2016 10:40 NI BARRIENTOS MD FACP FAC CCDS Apr 29, 2016 16:19 DVT/VTE Risk/Contraindication: Risk Factor Score Per Nursin RFS Level Per Nursing on Admit: 2=Moderate Stroke: Date of last known well: Apr 20, 2016 CRIS JOSHI Apr 29, 2016 10:40 CRIS JOSHI Apr 29, 2016 10:40
[2016-04-29] MEDS ORDERED: ASPI-586 PO (10:56)
[2016-04-29] MEDS: ALFUZOSIN HCL 10 MG TAB (UROXATRAL) PO SCH (17:35)
--- NOTE | 2016-04-29 19:25 | Progress Note (SOAP) ---
Subjective Subjective/Events-last exam Fwup acute GI Hemorrhage, acute anemia due to blood loss, chronic atrial fibrillation, HTN, diabetes mellitus. Plan is for [facility] SN[facility] today. Normal BMs. Objective Exam Vital Signs Date Time Temp Pulse Resp B/P Pulse Ox O2 Delivery O2 Flow Rate FiO2 04/29/16 16:00 96.8 60 16 153/65 96 Room Air 04/29/16 13:00 67 04/29/16 12:10 97.0 60 20 171/66 96 Room Air 04/29/16 08:12 98.6 60 16 132/64 93 Room Air 04/29/16 07:00 59 04/29/16 04:15 97.6 61 20 149/67 96 Room Air 04/29/16 01:00 59 04/29/16 00:00 97.9 64 18 135/63 95 Room Air 04/28/16 21:31 62 130/60 04/28/16 20:00 97.6 77 20 116/56 98 Room Air I & O 04/29/16 07:00 Intake Total 920 ml Output Total 1400 ml Balance -480 ml Capillary Refill : Less Than 3 SecondsLess Than 3 Seconds General Appearance: No Apparent Distress Neck: Supple Respiratory: Lungs Clear Cardiovascular: Systolic Murmur Gallop/S4 Irregularly Irregular Gastrointestinal: normal bowel sounds non tender soft Neurologic/Psychiatric: Alert Oriented x3 Results Lab Laboratory Tests 04/28/16 21:08: Glucometer 145H 04/29/16 05:39: Glucometer 133H 04/29/16 06:45: Hematocrit 30L, Hemoglobin 9.4L, Mean Corpuscular Hemoglobin 27, Mean Corpuscular Hemoglobin Concent 31L, Mean Corpuscular Volume 88, Mean Platelet Volume 10.3, Platelet Count 208, Red Blood Count 3.45L, Red Cell Distribution Width 17.1H, White Blood Count 4.2L 04/29/16 10:35: Glucometer 226H 04/29/16 15:42: Glucometer 182H Microbiology 04/21/16 Blood Culture - Final, Complete No growth 04/21/16 Urine Culture - Final, Complete NO GROWTH Assessment/Plan Assessment/Plan Assess & Plan/Chief Complaint 1. Acute GI Hemorrhage--continue protonix, EGD showed no active bleeding, colonoscopy showed polyps/diverticulosis/internal hemorrhoids, H/H is stable with restart of low dose aspirin 2. Acute Anemia due to Acute Blood Loss--S/P transfusion, H/H stable 3. Hypertension--back on metoprolol 4. Diabetes mellitus II--continue accuchecks with SSI 5. Weakness--resume PT, agreeable to SNF--transfer to [facility] today 6. Atrial Fibrillation--rate controlled, blood thinners on hold due to GI Bleed and patient refuses to restart eliquis or any other blood thinners despite being told of his stroke risk so will have cardiology discuss with patient Diagnosis/Problems: Clinical Quality Measures DVT/VTE Risk/Contraindication: Risk Factor Score Per Nursin RFS Level Per Nursing on Admit: 2=Moderate Stroke: Date of last known well: Apr 20, 2016 GLADYS ORONA DO Apr 29, 2016 7:25 pm
[2016-04-30] VITALS: BP 147/67
[2016-04-30 04:00] VITALS: BP 142/64
[2016-04-30] MEDS: inSUlin (REGULAR) HUMAN 1 UNIT/0.01 ML (CHARGE PER UNIT) SC SCH (05:25)
[2016-04-30 08:00] VITALS: BP 133/61
[2016-04-30] MEDS: FINASTERIDE (PROSCAR) 5 MG TAB PO SCH (08:03)
[2016-04-30] MEDS: PANTOPRAZOLE 40 MG (PROTONIX) TAB PO SCH (08:03)
[2016-04-30 09:35] VITALS: BP 133/61
--- NOTE | 2016-04-30 13:27 | Progress Note-Cardiology ---
Cardiology SOAP Progress Note Subjective: Does not report new symptoms. Denies cp or palp or syncope Objective: I&O/Vital Signs Vital Sign - Last 12Hours 04/30/16 04/30/16 04/30/16 04/30/16 04:00 06:53 08:00 09:35 Temp 97.7 97.9 Pulse 60 69 60 60 Resp 16 20 20 B/P 142/64 133/61 133/61 Pulse Ox 93 95 95 O2 Delivery Room Air Room Air Intake and Output 04/30/16 00:00 Intake Total 1890 ml Output Total 850 ml Balance 1040 ml Weight (Pounds): 171 Weight (Ounces): 0.0 Weight (Calculated Kilograms): 77.492401 Constitutional: appears stated ageNo apparent distress, well-developed well- nourished Cardiovascular: regular rate-rhythm (a-flutter with ventricular pacing)No JVD , S1 and S2 systolic murmur Gastrointestional: No tender, soft roundNo spleenomegaly Extremities: No clubbing, No cyanosis, No significant edema Neurologic/Psychiatric: alert oriented x 3 power is 5/5 both on sides Skin: No rash, No ulcerations Results/Procedures: Labs Laboratory Tests 04/29/16 15:42: Glucometer 182H 04/29/16 20:56: Glucometer 193H 04/30/16 05:22: Glucometer 157H Microbiology 04/21/16 Blood Culture - Final, Complete No growth 04/21/16 Urine Culture - Final, Complete NO GROWTH A/P: Assessment: Acute anemia of unknown source with melena likely d/t GI bleed, however upper and lower endoscopy did not show any active bleeding - being managed by medical/ surgical services (received 2 units PRBC) EGD by Dr. Low showed duodenitis with small hiatal hernia Colonoscopy of 04-23-[address] 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 The pacemaker is working normally per interrogation carried out on 02/27/16 Vertebrobasilar insufficiency, which has been followed by his Neurologist, Dr. Aguirre. H/o possible postural hypotension due to the patient's medication Echo of 04/08/[address] Blue: Biventricular systolic function is normal with an estimated left ventricular ejection fraction 65%. 2-D viewing does suggest underlying significant diastolic left ventricular dysfunction. Mild biatrial chamber dilatation is present. Tricuspid insufficiency is present. On this technically difficult study severity is difficult to surmise. RV systolic pressure is moderately elevated, estimated at 45 to 50 mmHg. The inferior vena cava was dilated and collapsed less than 50% on inspiration, indicative of increased right atrial pressure. Coronary artery disease primary consisting of a chronically occluded and collateralized right coronary artery and moderate mid-vessel disease of the left anterior descending artery, unchanged on his most recent cardiac catheterization of 09/20/2008. MPI of January 2015 showed no evidence of significant myocardial ischemia or infarction. Inferior/diaphragmatic wall perfusion is fixed and appears to be due diaphragmatic attenuation. Normal regional wall motion. LVEF 73% Aorta u/s showed no aneurysm involving the mid or distal abdominal aorta on ([facility], [place], [place]) Symptoms of intermittent hematuria. This has been diagnosed to be prostate hypertrophy and is being followed by his urologist, Dr Daniel Hypertension, controlled. Hyperlipidemia being treated with simvastatin, being followed by Dr Clemente. Maturity onset diabetes mellitus. Tobaccoism from which he has been advised to refrain. Moderate right internal carotid arterial disease with a diameter stenosis of approximately 40%. Moderate disease of the left common carotid with a diameter stenosis of approximately 49%. Mild left internal carotid artery disease with a diameter stenosis of 1-40% per carotid ultrasound of 07-30-2012. U/S from 08-11 showed mild to mod mixed bilat plaque involving both common and internal carotid arteries, without evidence of hemodynamic significance Chronic right bundle branch block. History of pulmonary nodule, which has previously been followed by Dr. Giang at [facility], we have referred him to Dr. Mulligan. This has been followed by Dr Mulligan and Dr Clemente. CT of showed 4mm RML nodule Chronic exertional dyspnea, clinically stable. Bilateral leg claudication which currently appears well controlled. History of right common angioplasty and right common iliac artery stenting with a 9 x 25 mm iliac artery stent followed by femoral-femoral crossover bypass grafting with a 7 mm straight EPTFE graft by Dr. Giang in March 2006. A Doppler study of February 2011 indicated bilateral aorto-femoral bypass grafting with patency of the visualized distal aspect of the graft at femoral anastomosis. There was considerable distal disease reported. He does report chronic 1-2 block leg claudication symptoms, but this unchanged Plan: * Complex management, as discussed in our note above * I spoke with him in detail and answered questions * ASA qod for now, monitor labs, then advance therapy if no bleeding and if approved by his other physicians * Close outpatient f/u advised Clinical Quality Measures Stroke: Date of last known well: Apr 20, 2016 VELASQUEZ HANNON MD FACP [facility] Apr 30, 2016 13:27
--- NOTE | 2016-04-30 18:03 | Discharge Summary ---
Diagnosis/Chief Complaint Date of Admission Apr 21, 2016 at 14:30 Date of Discharge Apr 30, 2016 at 09:35 Discharge Date: Apr 30, 2016 Admission Diagnosis Admission Diagnosis 1. Acute GI Hemorrhage--admit and hold eliquis, start IV protonix, monitor H and H and transfuse as needed, consult surgery for endoscopy 2. Weakness with Fall due to #1 3. Chronic Atrial Fibrillation--rate currently controlled 4. Diabetes mellitus II--start accuchecks with SSI 5. BPH with urinary retention--resume medications Discharge Diagnosis 1. Acute GI Hemorrhage--with no active bleeding on EGD or colonoscopy but H/H stable and no further melena with holding of blood thinners 2. Weakness with Fall due to #1 3. Chronic Atrial Fibrillation--rate currently controlled 4. Diabetes mellitus II--stable 5. BPH with urinary retention--stable 6. COPD--stable 7. Hypertension--stable 8. Chronic Diastolic/Systolic CHF--stable Reason Hospital Visit This is a 76 year old male who was just discharged from the hospital after being treated for weakness with falls and for pneumonia and a UTI. He was doing much better prior to discharge and had been doing well until this weekend when he stated his appetite decreased and he started feeling weak again. He noticed that his stools were looking black so he was afraid he may be having bleeding from his blood thinners. He held his blood thinners for 2 days but then was so weak that he slid out of a chair and was found by [facility]. He was brought to the emergency room and his hemoglobin was found to be 8.0. It was decided to admit him for acute gastrointestinal hemorrhage with acute anemia , monitor serial hemoglobin and hematocrits and transfuse as needed, and consult surgery for endoscopies. Discharge Summary Hospital Course Hospital Course This is a 76 year old male who was just discharged from the hospital after being treated for weakness with falls and for pneumonia and a UTI. He was doing much better prior to discharge and had been doing well until the weekend prior to admission when he stated his appetite decreased and he started feeling weak again. He noticed that his stools were looking black so he was afraid he may be having bleeding from his blood thinners. He held his blood thinners for 2 days but then was so weak that he slid out of a chair and was found by [facility]. He was brought to the emergency room and his hemoglobin was found to be 8.0. It was decided to admit him for acute gastrointestinal hemorrhage with acute anemia, monitor serial hemoglobin and hematocrits and transfuse as needed , and consult surgery for endoscopies. He did require 2 units of blood on after his hemoglobin dropped to 7.0, and following his transfusion his hemoglobin stabilized. His eliquis and aspirin were held and he was started on IV protonix. Dr. Low was consulted and the patient underwent EGD on 04/22/16 which showed no active bleeding and colonoscopy on 04/23/16 which showed polyps, diverticulosis and internal hemorrhoids but no active bleeding. Once his hemoglobin was stabilized, low dose aspirin was restarted but the patient refused to go back on eliquis or any other NOACs for his atrial fibrillation despite being told of his stroke risk. His stools returned to a normal brown color and he had a good appetite with no abdominal pain. He was started with PT and OT for strengthening and it was decided that he would need time in a SNF for further strengthening. Dr. Barrientos did see the patient prior to discharge to discuss his blood thinners as well and at this time the patient will just continue on low dose aspirin. He is discharged to [facility]. Labs Laboratory Tests 04/27/16 20:41: Glucometer 167H 04/28/16 06:09: Glucometer 130H 04/28/16 11:39: Glucometer 227H 04/28/16 15:45: Glucometer 225H 04/28/16 21:08: Glucometer 145H 04/29/16 05:39: Glucometer 133H 04/29/16 06:45: Hematocrit 30L, Hemoglobin 9.4L, Mean Corpuscular Hemoglobin Concent 31L, Red Blood Count 3.45L, Red Cell Distribution Width 17.1H, White Blood Count 4.2L 04/29/16 10:35: Glucometer 226H 04/29/16 15:42: Glucometer 182H 04/29/16 20:56: Glucometer 193H 04/30/16 05:22: Glucometer 157H Procedures EGD and Colonoscopy Consultations Dr. Devante Barrientos Discharge Physical Examination Allergies: Coded Allergies: No Known Drug Allergies (Unverified , 06/02/10) Vitals & I&Os Vital Signs Date Time Temp Pulse Resp B/P Pulse Ox O2 Delivery O2 Flow Rate FiO2 04/30/16 09:35 60 20 133/61 95 04/30/16 08:00 97.9 Room Air General Appearance: Alert, Oriented X3, Cooperative, No Acute Distress Respiratory: Clear to Auscultation Cardiovascular: Other (irregular) Abdominal: Normal Bowel Sounds, Soft, No Tenderness Extremities: No Clubbing, No Cyanosis, No Edema Psych/Mental Status: Mental Status NL, Mood NL Discharge Home Medications Reviewed and agree with Discharge Medication list on patient's Discharge Instruction sheet Instructions to Patient/Family Please see electonic discharge instructions given to patient. Clinical Quality Measures DVT/VTE Risk/Contraindication: Risk Factor Score Per Nursin RFS Level Per Nursing on Admit: 2=Moderate Stroke: Date of last known well: Apr 20, 2016 GLADYS ORONA DO Apr 30, 2016 18:03
[2016-05-01] MEDS ORDERED: ASPIRIN E.C. 81 MG (ECOTRIN) TAB PO SCH (09:00)
== END 2016-04-30 09:35 | DRG 378 ==
LOC: EDUNIT# 10:37 → ER 10:38 → 4TH 14:30
PROVIDERS: ADMIT Family Medicine; ATTEND Family Medicine
PROC: 0DB98ZZ Excision of Duodenum, Via Natural or Artificial Opening Endoscopic (ICD-10-PCS; principal; 2016-04-22 14:20)
PROC: 0DBL8ZZ Excision of Transverse Colon, Via Natural or Artificial Opening Endoscopic (ICD-10-PCS; 2016-04-23)
PROC: 0DBP8ZZ Excision of Rectum, Via Natural or Artificial Opening Endoscopic (ICD-10-PCS; 2016-04-23)
DX: K92.2 Gastrointestinal hemorrhage, unspecified (principal); D62 Acute posthemorrhagic anemia; I11.0 Hypertensive heart disease with heart failure; I50.42 Chronic combined systolic (congestive) and diastolic (congestive) heart failure; I48.2 Chronic atrial fibrillation; F17.210 Nicotine dependence, cigarettes, uncomplicated; I25.10 Atherosclerotic heart disease of native coronary artery without angina pectoris; E11.649 Type 2 diabetes mellitus with hypoglycemia without coma; J44.9 Chronic obstructive pulmonary disease, unspecified; E78.00 Pure hypercholesterolemia, unspecified; N40.1 Benign prostatic hyperplasia with lower urinary tract symptoms; R33.8 Other retention of urine; R39.11 Hesitancy of micturition; Z95.0 Presence of cardiac pacemaker; R35.0 Frequency of micturition; R31.9 Hematuria, unspecified; K21.9 Gastro-esophageal reflux disease without esophagitis; Z79.01 Long term (current) use of anticoagulants; Z91.81 History of falling; K29.80 Duodenitis without bleeding; K44.9 Diaphragmatic hernia without obstruction or gangrene; K63.5 Polyp of colon; K62.1 Rectal polyp; K64.8 Other hemorrhoids; K57.30 Diverticulosis of large intestine without perforation or abscess without bleeding
CPT/HCPCS: 36415; 70450; 71010; 80053; 81000; 82274; 82550; 82962; 83036; 83605; 83880; 84484; 85007; 85014; 85018; 85025; 85027; 85379; 85610; 85730; 86141; 86850; 86900; 86901; 86920; 87040; 87088; 88305; 93005; 93041; 94640; 94664; 96361; 96365

== ENCOUNTER → 2017-05-07 | Outpatient (CLI) | payer MEDICARE ==
[~2017-05-07] MED LIST changes: +ASPI-586 PO; +CEPH500C PO; +PANT40TA3 PO
--- NOTE | 2017-05-07 12:25 | Diagnostic Imaging Report ---
PROCEDURE: CT abdomen and pelvis without contrast. TECHNIQUE: Multiple contiguous axial images were obtained through the abdomen and pelvis without the use of intravenous contrast. INDICATION: Hematuria. COMPARISON: Comparison made with prior examination from 03/25/2016. FINDINGS: Heart size is normal. There is a pacemaker in place. The lung bases are clear. The liver is normal in size and without focal lesions. The gallbladder is unremarkable. There is no biliary ductal dilatation. The spleen is normal. The pancreas and adrenal glands are unremarkable. There is a 4.6 cm right renal cyst. There is atherosclerotic calcification of the right renal artery. There is some enlargement and inflammatory change about the left kidney. This is nonspecific, however possibility of polynephritis cannot be excluded. There is a curvilinear calcification in the base of the bladder which does not have the appearance of a stone. This may be calcification in the bladder wall. There is diverticular disease of the colon without evidence of diverticulitis. There is mild atherosclerotic calcification of the aorta which is nonaneurysmal. Bowel gas pattern is nonspecific. There is no free air. There is no ascites. There is a fem-fem bypass graft, however it is uncertain if this is left to right or right to left. There is some moderately severe degenerative disc disease at L4-L5 and L5-S1. Osseous structures are otherwise unremarkable. IMPRESSION: 1. Enlargement of the left kidney with surrounding inflammatory change. This may reflect recent stone passage or possibly pyelonephritis. Recommend clinical correlation. 2. Nonspecific curvilinear calcification in the base of the bladder on the right. This does not have the appearance of a stone. This may reflect some minimal calcification in the bladder wall. Recommend clinical correlation. 3. Right renal cyst. 4. Diverticular disease without evidence of diverticulitis. 5. Lower lumbar degenerative disc disease. Dictated by: Dictated on workstation # [id number]
== END ==
LOC: RAD 11:38
PROVIDERS: ATTEND Urology
DX: N28.81 Hypertrophy of kidney (principal); N32.89 Other specified disorders of bladder; K57.30 Diverticulosis of large intestine without perforation or abscess without bleeding; M51.36 Other intervertebral disc degeneration, lumbar region
CPT/HCPCS: 74176

== ENCOUNTER → 2017-08-05 | Outpatient (CLI) | payer MEDICARE, OTHER ==
--- NOTE | 2017-08-05 13:36 | Diagnostic Imaging Report ---
INDICATION: Hematuria. PROCEDURE: US Renal Bilateral. TECHNIQUE: Multiple real-time grayscale images were obtained over the kidneys in various projections bilaterally. The right kidney measures 11.3 x 6.2 x 5.3 cm, and the left kidney measures 10.6 x 6.0 x 5.6 cm. The cortical thickness and echogenicity is normal bilaterally. No calculi or hydronephrosis is seen. There is a simple appearing cyst upper pole right kidney measuring 4.3 x 3.4 x 4.5 cm. The bladder is decompressed. IMPRESSION: Right renal cyst. No other significant abnormality is detected. Dictated by: Dictated on workstation # [id number]
--- NOTE | 2017-08-05 16:18 | Diagnostic Imaging Report ---
INDICATION: Hematuria and back pain. TIME OF EXAM: 01:16 p.m. FINDINGS: Three views of the lumbar spine demonstrate normal curvature. Minimal anterolisthesis of L4 on L5 is seen. Vertebral body heights are maintained. No acute compression fracture is detected. Generalized lumbar spondylosis with variable disc space narrowing and marginal spurring is seen. There is multilevel facet arthropathy. Aorta is calcified. There appears to be a right iliac stent. IMPRESSION: Lumbar spondylosis. No acute bony abnormality is detected. Dictated by: Dictated on workstation # [id number]
== END ==
LOC: RAD 11:39
PROVIDERS: ATTEND Nurse Practitioner Family
DX: N28.1 Cyst of kidney, acquired (principal); M47.816 Spondylosis without myelopathy or radiculopathy, lumbar region
CPT/HCPCS: 72100; 76770

== ENCOUNTER → 2017-09-01 | Outpatient (CLI) | payer MEDICARE ==
[~2017-09-01] MED LIST changes: +CATHETER FLUSH 10 ML SYR IV PRN; +REGADENOSON 0.4 MG/5 ML SYR (LEXISCAN) IV ONE
[2017-09-01 12:32] VITALS: BP 162/71
[2017-09-01 12:36] VITALS: BP 147/57
--- NOTE | 2017-09-03 13:05 | STRESS TEST ---
DATE OF SERVICE: 09/01/2017 RESTING AND POST REGADENOSON TECHNETIUM 99M TETROFOSMIN SPECT CT IMAGING ORDERING PHYSICIAN: Dr. Barrientos. PRIMARY CARE PHYSICIAN: Dr. Clemente. CLINICAL DIAGNOSIS: Coronary artery disease. Baseline images were carried out after injection of 10.63 mCi technetium-99m tetrofosmin. This was followed by 0.4 mg regadenoson and 30.3 mCi of technetium-99m tetrofosmin for stress imaging. The electrocardiogram showed a paced rhythm throughout the study. The electrocardiogram did not change significantly with regadenoson infusion. The patient noted some shortness of breath following regadenoson infusion, which resolved in a few minutes. Review of images at rest and following stress indicates an inferior perfusion defect which is predominantly fixed. Gated images show well-preserved global left ventricular systolic function. There is basal inferior hypokinesis. Left ventricular ejection fraction is calculated to be 63%. Left ventricular end-diastolic volume is 38 mL. TID is absent (1). CONCLUSIONS: 1. This study is indicative of an inferior infarction with minimal amount of monica-infarct ischemia. 2. Basal inferior hypokinesis. 3. Well-preserved global left ventricular systolic function with a calculated ejection fraction of 63%. 4. Normal left ventricular cavity size. Job ID: [id number] DocumentID: [id number] Dictated Date: 09/03/2017 09:57:58 Mechanical Reliability Engineer Date: 09/03/2017 13:03:55 Dictated By: VELASQUEZ BARRIENTOS MD, MA, FACP, FACC,
== END ==
LOC: CARD 10:47
PROVIDERS: ATTEND Internal Medicine Cardiovascular Disease
DX: I25.10 Atherosclerotic heart disease of native coronary artery without angina pectoris (principal); I73.9 Peripheral vascular disease, unspecified; I10 Essential (primary) hypertension; E78.5 Hyperlipidemia, unspecified; I48.0 Paroxysmal atrial fibrillation; I08.1 Rheumatic disorders of both mitral and tricuspid valves; Z72.0 Tobacco use; Z95.0 Presence of cardiac pacemaker
CPT/HCPCS: 78452; 93017; 93306

== ENCOUNTER → 2018-06-03 | Outpatient (CLI) | payer MEDICARE ==
[~2018-06-03] MED LIST changes: -CATHETER FLUSH 10 ML SYR IV PRN; -PIOG30TA26 PO; +PIOG30TA71 PO; -REGADENOSON 0.4 MG/5 ML SYR (LEXISCAN) IV ONE
--- NOTE | 2018-06-03 13:10 | Diagnostic Imaging Report ---
PROCEDURE: CT abdomen and pelvis without contrast. TECHNIQUE: Multiple contiguous axial images were obtained through the abdomen and pelvis without the use of intravenous contrast. Auto Exposure Controls were utilized during the CT exam to meet ALARA standards for radiation dose reduction. INDICATION: Hematuria. COMPARISON: Comparison made with prior examination from 05/07/2017. FINDINGS: The heart size is normal. The lung bases are clear. The liver is normal in size and without focal lesions. The gallbladder is unremarkable. There is no biliary ductal dilatation. Spleen is normal. The pancreas and adrenal glands are unremarkable. There is a right renal cyst. There are some vascular calcifications in the right kidney. There is no hydronephrosis. There is no evidence of ureteral stone or obstructive uropathy. There is some atherosclerotic calcification of the aorta which is nonaneurysmal. Bowel gas pattern is nonspecific. There is a moderate amount of retained fecal material in the right colon, which may reflect some degree of constipation. There is no free air. There is no ascites. There are no focal inflammatory changes. There is some diverticular disease without evidence of diverticulitis. There is prominence of the prostate. Bladder is grossly unremarkable. There is no pelvic mass or adenopathy. There is a compression fracture of the L1 vertebral body. This appears somewhat sclerotic and is likely chronic. There are vacuum discs at L4-5 and L5-S1. IMPRESSION: 1. Right renal cyst and some vascular calcifications in the right kidney. There is, however, no evidence of nephrolithiasis or obstructive uropathy. 2. Diverticular disease without evidence of diverticulitis. 3. Prominence of the prostate. 4. Degenerative changes in the spine as well as an L1 compression fracture, likely chronic. Recommend clinical correlation. Dictated by: Dictated on workstation # [id number]
== END ==
LOC: RAD 12:16
PROVIDERS: ATTEND Urology
DX: N28.1 Cyst of kidney, acquired (principal); S32.010A Wedge compression fracture of first lumbar vertebra, initial encounter for closed fracture; N42.89 Other specified disorders of prostate; M47.816 Spondylosis without myelopathy or radiculopathy, lumbar region; K57.90 Diverticulosis of intestine, part unspecified, without perforation or abscess without bleeding
CPT/HCPCS: 74176

== ENCOUNTER → 2018-07-23 | Outpatient (CLI) | payer MEDICARE ==
[~2018-07-23] MED LIST changes: -RIVA20TA PO; +RIVA20TA2 PO
--- NOTE | 2018-07-23 09:38 | Diagnostic Imaging Report ---
INDICATION: Sudden loss in vision. TIME OF EXAM: 9:09 AM Comparison is made with prior chest from 04/21/2016. FINDINGS: The heart size is normal. Cardiac pacemaker remains in place. Lungs are clear. No infiltrate or failure is seen. No effusion or pneumothorax is seen. IMPRESSION: No acute cardiopulmonary process is detected. Dictated by: Dictated on workstation # [id number]
== END ==
LOC: RAD 09:01
PROVIDERS: ATTEND Family Medicine
DX: H54.7 Unspecified visual loss (principal); R06.00 Dyspnea, unspecified; R63.4 Abnormal weight loss; Z95.0 Presence of cardiac pacemaker
CPT/HCPCS: 71046

== ENCOUNTER → 2018-07-28 | Outpatient (CLI) | payer MEDICARE ==
--- NOTE | 2018-07-28 09:01 | Diagnostic Imaging Report ---
PROCEDURE: CT head without contrast. TECHNIQUE: Multiple contiguous axial images were obtained through the brain without the use of intravenous contrast. Auto Exposure Controls were utilized during the CT exam to meet ALARA standards for radiation dose reduction. INDICATION: Left optic nerve swelling. Correlation is made with prior CT brain from 04/21/2016. Ventricles and sulci are within normal limits. No sulcal effacement or midline shift is seen. No acute intra-axial or extra-axial hemorrhage is seen. Imaging of the orbits is unremarkable. Optic nerves appears to be symmetric bilaterally. IMPRESSION: No acute intra-cranial process is detected. Dictated by: Dictated on workstation # [id number]
== END ==
LOC: RAD 08:15
PROVIDERS: ATTEND Family Medicine
DX: H47.10 Unspecified papilledema (principal)
CPT/HCPCS: 36415; 70450; 85652; 86141

== ENCOUNTER 2019-05-08 18:49 | Inpatient (IN) | payer MEDICARE ==
[2019-05-08] VITALS (8 sets, daily range): BP systolic 165–180; BP diastolic 69–81
[~2019-05-08] VITALS: Ht 162 cm; Wt 63.0 kg
[~2019-05-08 18:49] MED LIST changes: -GLIM2TAB PO; +GLIM2TAB4 PO; +SIMV40TA25 PO; -SIMV40TA4 PO
[2019-05-08] MEDS ORDERED: D5 NS 1000 ML IV SOLUTION 1,000 ML IV ONE (18:58)
[2019-05-08] MEDS ORDERED: NS IV 1000 ML 1,000 ML IV SCH (18:58)
[2019-05-08] MEDS ORDERED: RT-ALBUTEROL/IPRATROPIUM 3 ML (DUONEB) VIAL ONE (18:58)
[2019-05-08] MEDS ORDERED: RT-ALBUTEROL/IPRATROPIUM 3 ML (DUONEB) VIAL INH ONE (19:00)
[2019-05-08] MEDS ORDERED: CEFEPIME INJECTION 1,000 MG in WATER (STERILE) FOR INJECTION 10 ML IV ONE (19:00)
[2019-05-08] MEDS ORDERED: VANCOMYCIN INJECTION 750 MG in NS (IVPB) 100 ML IV ONE (19:00)
--- NOTE | 2019-05-08 19:09 | ED Neurological Problem ---
General Stated Complaint: LOW BLOOD SUGAR Source: patient Exam Limitations: no limitations History of Present Illness Date Seen by Provider: May 08, 2019 Time Seen by Provider: 18:50 Initial Comments Patient present ER by EMS from home with chief complaint that family had not heard from him since Thursday, 8 days ago so they gave a call and he did not answer so they called EMS. Patient's presenting blood sugar was 25 to gave him 250 cc@10% extra dose and get his blood sugar up about 330 when he was slow to arouse. He is not having any lateralizing symptoms. He was trying to talk so they tried giving him some oral mucosa which he spit out. Is not complaining of any pain anywhere but he has some mild shortness of breath nasal congestion. He denies being sick lately. He is not really remember what happened over the past week. He does smoke cigarettes. EMS says no fever upon arrival. 12-lead did not demonstrate any ST changes were EMS. Allergies and Home Medications Allergies Coded Allergies: No Known Drug Allergies (Unverified , 06/02/10) Home Medications Aspirin 81 Mg Tablet., 81 MG PO Q48H Prescribed by: CRIS MCKEON on 04/29/16 1056 Finasteride 5 Mg Tablet, 5 MG PO DAILY, (Reported) Furosemide 40 Mg Tablet, 40 MG PO Q48H Prescribed by: GLADYS ORONA on 04/28/162140 Glimepiride 2 Mg Tablet, 4 MG PO DAILY, (Reported) TAKES 2 (2MG) TABLETS Glimepiride 2 Mg Tablet, 2 MG PO HS, (Reported) Metoprolol Succinate 25 Mg Tab.sr.24h, 25 MG PO HS, (Reported) LAST FILLED #30 16 Pantoprazole Sodium 40 Mg Tablet.dr, 40 MG PO BID Prescribed by: GLADYS ORONA on 04/28/162140 Pioglitazone HCl 30 Mg Tablet, 30 MG PO DAILY, (Reported) Potassium Chloride 10 Meq Tab.er.prt, 10 MEQ PO Q48H Prescribed by: GLADYS ORONA on 04/28/162140 Simvastatin 40 Mg Tablet, 40 MG PO HS, (Reported) Sitagliptin Phosphate 100 Mg Tablet, 100 MG PO DAILY, (Reported) Tamsulosin HCl 0.4 Mg Cap.er.24h, 0.4 MG PO HS, (Reported) Patient Home Medication List Home Medication List Reviewed: Yes Review of Systems Review of Systems Constitutional: see HPI (review of systems per patient and the patient is a poor historian at this time.); No chills, No diaphoresis Eyes: Denies Blindness, Denies Drainage Ears, Nose, Mouth, Throat: denies ear pain, denies ear discharge Respiratory: No cough, No short of breath Cardiovascular: No chest pain, No Hx of Intervention Gastrointestinal: No abdominal pain, No nausea Genitourinary: No discharge, No dysuria Musculoskeletal: No back pain, No joint pain Skin: No pruritus, No rash Psychiatric/Neurological: Denies Anxiety, Denies Depressed, Denies Headache, Denies Numbness All Other Systems Reviewed Negative Unless Noted: Yes Past Zdwtncw-Rfkmdw-Ggikxd Hx Patient Social History Alcohol Use: Occasionally Uses Alcohol Beverage of Choice: Beer Recreational Drug Use: No Smoking Status: Current Everyday Smoker Type Used: Cigarettes Recent Foreign Travel: No Contact w/Someone Who Travel: No Recent Hopitalizations: Yes Seasonal Allergies Seasonal Allergies: No Past Medical History Surgeries: Yes Pacemaker Respiratory: Yes Pneumonia, COPD Currently Using CPAP: No Currently Using BIPAP: No Cardiac: Yes (PACEMAKER, congestive heart failure) Atrial Fibrillation, Coronary Artery Disease, High Cholesterol, Hypertension Neurological: No Reproductive Disorders: No Genitourinary: Yes Prostate Problems, UTI-Chronic Gastrointestinal: No Gastroesophageal Reflux Musculoskeletal: Yes Degenerate Disk Disease, Arthritis, Back Injury Endocrine: Yes Diabetes, Non-Insulin dep HEENT: Yes Cataract Hearing Impairment: Hard of Hearing Cancer: No Psychosocial: No Integumentary: No Blood Disorders: Yes (anticoagulated for A. fib) Family Medical History Cancer, Hypertension, Stroke Physical Exam Vital Signs Vital Signs - First Documented 05/08/19 19:19 Pulse Ox 96 O2 Delivery Room Air Capillary Refill : Height, Weight, BMI Height: 5'4.00" Weight: 171lbs. 0.0oz. 77.890372iu; 28.2 BMI Method:Stated General Appearance: moderate distress, other (disheveled with strong malodorous urine smell) HEENT: PERRL/EOMI, normal ENT inspection, TMs normal; No pharynx normal (oropharynx is dry) Neck: full range of motion, supple, normal inspection Respiratory: no accessory muscle use, respiratory distress (mild), rhonchi (bilateral), wheezing (bilateral) Cardiovascular: normal peripheral pulses, regular rate, rhythm, no edema, other (paced spikes noted) Peripheral Pulses: 2+ Dorsalis Pedis (R), 2+ Left Dors-Pedis (L), 2+ Radial Pulses (R), 2+ Radial Pulses (L) Gastrointestinal: normal bowel sounds, non tender, soft Extremities: normal range of motion, non-tender, normal inspection Neurologic/Psychiatric: alert, normal mood/affect, oriented x 3 Crainal Nerves: normal hearing, normal speech, PERRL Motor/Sensory: no motor deficit, no sensory deficit, no pronator drift Skin: normal color, warm/dry Stroke Onset of Symptoms Date of Onset of Symptoms: Apr 30, 2019 NIH Stroke Scale Assessment Select: Initial Level of Consciousness: 0=Alert (0), Level of Consciousness- Questions: 0=Answers both month/age (0), LOC Commands: 0=Performs both tasks (0), Gaze: Normal (0), Visual Zamora: 0=No visual loss (0), Facial Movement (Facial Paresis): 0=Normal symmetrical mnt (0), Motor Function-Arms Right: 0=No drift (0), Motor Function-Arms Left: 0=No drift (0), Motor Function-Legs Right: 0=No drift (0), Motor Function-Legs Left: 0=No drift (0), Limb Ataxia: 0=Absent (0), Sensory: 0=Normal:no loss (0), Best Language: 0=No aphasia (0), Dysarthria: 0=Normal (0), Extinction & Inattention: 0=No abnormality (0), Total: 0 Stroke Thrombolytic Exclusion Age 18 or Over: Yes IV - TPa Received IV - TPa Procedure Performed?: No Focused Exam Lactate Level 05/08/19 19:00: Lactic Acid Level 1.81 Lactic Acid Level Laboratory Tests Test 05/08/19 19:00 Lactic Acid Level 1.81 MMOL/L (0.50-2.00) Progress/Results/Core Measures Results/Orders Lab Results Laboratory Tests Test 05/08/19 18:51 05/08/19 19:00 05/08/19 19:05 05/08/19 19:10 Range/Units White Blood Count 8.7 4.3-11.0 10^3/uL Red Blood Count 4.26 L 4.35-5.85 10^6/uL Hemoglobin 12.6 L 13.3-17.7 G/DL Hematocrit 39 L 40-54 % Mean Corpuscular Volume 91 80-99 FL Mean Corpuscular Hemoglobin 30 25-34 PG Mean Corpuscular Hemoglobin Concent 33 32-36 G/DL Red Cell Distribution Width 15.0 H 10.0-14.5 % Platelet Count 271 130-400 10^3/uL Mean Platelet Volume 10.7 H 7.4-10.4 FL Neutrophils (%) (Auto) 88 H 42-75 % Lymphocytes (%) (Auto) 6 L 12-44 % Monocytes (%) (Auto) 6 0-12 % Eosinophils (%) (Auto) 0 0-10 % Basophils (%) (Auto) 0 0-10 % Neutrophils # (Auto) 7.7 1.8-7.8 X 10^3 Lymphocytes # (Auto) 0.5 L 1.0-4.0 X 10^3 Monocytes # (Auto) 0.5 0.0-1.0 X 10^3 Eosinophils # (Auto) 0.0 0.0-0.3 10^3/uL Basophils # (Auto) 0.0 0.0-0.1 10^3/uL Neutrophils % (Manual) 83 % Lymphocytes % (Manual) 7 % Monocytes % (Manual) 6 % Band Neutrophils 4 % Prothrombin Time 16.2 H 12.2-14.7 SEC INR Comment 1.3 0.8-1.4 Activated Partial Thromboplast Time 30 24-35 SEC Sodium Level 138 135-145 MMOL/L Potassium Level 3.5 L 3.6-5.0 MMOL/L Chloride Level 104 98-107 MMOL/L Carbon Dioxide Level 23 21-32 MMOL/L Anion Gap 11 5-14 MMOL/L Blood Urea Nitrogen 11 7-18 MG/DL Creatinine 0.91 0.60-1.30 MG/DL Estimat Glomerular Filtration Rate > 60 BUN/Creatinine Ratio 12 Glucose Level 120 H 70-105 MG/DL Calcium Level 8.7 8.5-10.1 MG/DL Corrected Calcium 8.6 8.5-10.1 MG/DL Magnesium Level 1.6 1.6-2.4 MG/DL Total Bilirubin 0.8 0.1-1.0 MG/DL Aspartate Amino Transf (AST/SGOT) 17 5-34 U/L Alanine Aminotransferase (ALT/SGPT) 14 0-55 U/L Alkaline Phosphatase 70 40-136 U/L Total Creatine Kinase 178 30-200 U/L Troponin I 0.043 H <0.028 NG/ML Total Protein 7.1 6.4-8.2 GM/DL Albumin 4.1 3.2-4.5 GM/DL Serum Alcohol < 10 <10 MG/DL Lactic Acid Level 1.81 0.50-2.00 MMOL/L Urine Color YELLOW Urine Clarity CLEAR Urine pH 7.0 5-9 Urine Specific Mcbain 1.025 H 1.016-1.022 Urine Protein 3+ H NEGATIVE Urine Glucose (UA) NEGATIVE NEGATIVE Urine Ketones 1+ H NEGATIVE Urine Nitrite NEGATIVE NEGATIVE Urine Bilirubin NEGATIVE NEGATIVE Urine Urobilinogen 0.2 < = 1.0 MG/DL Urine Leukocyte Esterase NEGATIVE NEGATIVE Urine RBC (Auto) 2+ H NEGATIVE Urine RBC 5-10 H /HPF Urine WBC 2-5 /HPF Urine Squamous Epithelial Cells NONE /HPF Urine Crystals NONE /LPF Urine Bacteria TRACE /HPF Urine Casts NONE /LPF Urine Mucus NEGATIVE /LPF Urine Culture Indicated NO Urine Opiates Screen NEGATIVE NEGATIVE Urine Oxycodone Screen NEGATIVE NEGATIVE Urine Methadone Screen NEGATIVE NEGATIVE Urine Propoxyphene Screen NEGATIVE NEGATIVE Urine Barbiturates Screen NEGATIVE NEGATIVE Ur Tricyclic Antidepressants Screen NEGATIVE NEGATIVE Urine Phencyclidine Screen NEGATIVE NEGATIVE Urine Amphetamines Screen NEGATIVE NEGATIVE Urine Methamphetamines Screen NEGATIVE NEGATIVE Urine Benzodiazepines Screen NEGATIVE NEGATIVE Urine Cocaine Screen NEGATIVE NEGATIVE Urine Cannabinoids Screen NEGATIVE NEGATIVE Blood Gas Puncture Site RIGHT RADIAL Blood Gas Patient Temperature 36.9 Arterial Blood pH 7.44 H 7.37-7.43 Arterial Blood Partial Pressure CO2 32 L 35-45 MMHG Arterial Blood Partial Pressure O2 80 79-93 MMHG Arterial Blood HCO3 22 L 23-27 MMOL/L Arterial Blood Total CO2 22.5 21.0-31.0 MMOL/L Arterial Blood Oxygen Saturation 96 94-100 % Arterial Blood Base Excess -2.0 -2.5-2.5 MMOL/L Maicol Test POSITIVE Blood Gas Ventilator Setting NO Blood Gas Inspired Oxygen N/A Micro Results Microbiology 05/08/19 Influenza Types A,B Antigen (JUICE) - Final, Complete My Orders Orders - STEPHEN CHICAS Albuterol/Ipra Inhalation Soln (Duoneb I (05/08/19 19:00) Ed Iv/Invasive Line Start (05/08/19 18:58) D5 Ns 1000 Ml Iv Solution (Dextrose 5%/0 (05/08/19 18:58) Ns Iv 1000 Ml (Sodium Chloride 0.9%) (05/08/19 18:58) Ct Head Wo (05/08/19 18:58) Svn Small Volume Nebulizer (05/08/19 18:58) Cbc With Automated Diff (05/08/19 18:58) Comprehensive Metabolic Panel (05/08/19 18:58) Blood Culture (05/08/19 18:58) Sputum Culture (05/08/19 18:58) Urinalysis (05/08/19 18:58) Urine Culture (05/08/19 18:58) Protime With Inr (05/08/19 18:58) Partial Thromboplastin Time (05/08/19 18:58) Chest 1 View, Ap/Pa Only (05/08/19 18:58) Ed Iv/Invasive Line Start (05/08/19 18:58) Ed Iv/Invasive Line Start (05/08/19 18:58) Ekg Tracing (05/08/19 18:58) Troponin I (05/08/19 18:58) Vital Signs Adult Sepsis Patie Q15M (05/08/19 18:58) O2 (05/08/19 18:58) Remove Rings In Anticipation O (05/08/19 18:58) Lactic Acid Analyzer (05/08/19 18:58) Influenza A And B Antigens (05/08/19 18:58) Cefepime Injection (Maxipime Injection) (05/08/19 19:00) Vancomycin Injection (Vancomycin Injecti (05/08/19 19:00) Vancomycin Injection (Vancomycin Injecti (05/08/19 20:00) Catheter(Urinary) Insert & Ass 03,15 (05/08/19 18:58) Arterial Blood Gas (05/08/19 18:58) Magnesium (05/08/19 18:58) Albuterol/Ipra Inhalation Soln (Duoneb I (05/08/19 18:58) Drug Screen Stat (Urine) (05/08/19 19:09) Alcohol (05/08/19 19:09) Creatine Kinase (05/08/19 19:17) Manual Differential (05/08/19 18:51) Accucheck Stat ONCE (05/08/19 19:54) Arterial Blood Draw (05/08/19 19:10) Medications Given in ED Current Medications Medications Dose Ordered Sig/Logan Route Start Time Stop Time Status Last Admin Dose Admin Albuterol/ Ipratropium 3 ml ONCE ONCE INH 05/08/19 19:00 05/08/19 19:05 DC 05/08/19 19:18 3 ML Cefepime HCl 1000 mg/Sterile Water 10 ml @ 200 mls/hr ONCE ONCE IV 05/08/19 19:00 05/08/19 19:05 DC 05/08/19 20:18 200 MLS/HR Dextrose/Sodium Chloride 1,000 ml @ 0 mls/hr Q0M ONCE IV 05/08/19 18:58 05/08/19 19:05 DC 05/08/19 19:24 0 MLS/HR Vital Signs/I&O 05/08/19 19:19 Pulse Ox 96 O2 Delivery Room Air Diagnostic Imaging Diagonstic Imaging: CT Plain Films/CT/US/NM/MRI: head Comments NAME: KIRSTIN LEE [facility] REC#: [id number] PT STATUS: REG ER : 1940 PHYSICIAN: STEPHEN CHICAS MD ADMIT DATE: 05/08/19/ER Draft Date of Exam:05/08/19 CT HEAD WO PROCEDURE: CT head without contrast. TECHNIQUE: Multiple contiguous axial images were obtained through the brain without the use of intravenous contrast. Auto Exposure Controls were utilized during the CT exam to meet ALARA standards for radiation dose reduction. INDICATION: Hypoglycemia and headache. Comparison is made with prior examination from 07/28/2018. FINDINGS: There is prominence of the ventricles and sulci. There is no hydrocephalus or cerebral edema. There is no midline shift or mass-effect. There is no intracranial mass, hemorrhage, or extra-axial fluid collection. There is some diffuse decreased attenuation of the periventricular white matter which is nonspecific. The visualized paranasal sinuses and mastoid air cells are clear. There are no regional areas of decreased attenuation appreciated to suggest an acute CVA. IMPRESSION: 1. No acute intracranial process. 2. Age-appropriate atrophy. 3. Decreased attenuation of the periventricular white matter which is nonspecific, however, likely reflects senescent change and/or chronic small vessel ischemic disease. Dictated on workstation # [id number] Dict: 05/08/191956 Trans: 05/08/192000 [place] [id number] Interpreted by: TANISHA VILLAREAL MD Electronically signed by: Reviewed: Reviewed by Me Departure Communication (Admissions) Time/Spoke to Admitting Phy: 20:35 Discussed the case with Dr. Bell and he agrees to observe the patient and trend troponins. Impression Primary Impression: Hypoglycemia associated with diabetes Additional Impression: Elevated troponin I level Disposition: ADMITTED INPATIENT Condition: Stable Admissions Decision to Admit Reason: Admit from ER (General) Decision to Admit/Date: May 08, 2019 Time/Decision to Admit Time: 20:00 Departure-Patient Inst. Referrals: GLADYS ORONA DO (PCP/Family) Primary Care Physician STEPHEN CHICAS May 08, 2019 19:09
[2019-05-08 19:14] LABS: BASOPHILS % (AUTO) 0 % (0-10); EOSINOPHILS % (AUTO) 0 % (0-10); HEMATOCRIT 39 % (40-54); HEMOGLOBIN 12.6 G/DL (13.3-17.7); LYMPHOCYTES # (AUTO) 0.5 X 10^3 (1.0-4.0); LYMPHOCYTES % (AUTO) 6 % (12-44); MEAN CORPUSCULAR HEMOGLOBIN 30 PG (25-34); MEAN CORPUSCULAR HGB CONC 33 G/DL (32-36); MEAN CORPUSCULAR VOLUME 91 FL (80-99); MEAN PLATELET VOLUME 10.7 FL (7.4-10.4); MONOCYTES # (AUTO) 0.5 X 10^3 (0.0-1.0); MONOCYTES % (AUTO) 6 % (0-12); NEUTROPHILS # (AUTO) 7.7 X 10^3 (1.8-7.8); NEUTROPHILS % (AUTO) 88 % (42-75); PLATELET COUNT 271 10^3/uL (130-400); WHITE BLOOD COUNT 8.7 10^3/uL (4.3-11.0)
[2019-05-08 19:15] LABS: BILIRUBIN,URINE NEGATIVE (NEGATIVE); CLARITY,URINE CLEAR; COLOR,URINE YELLOW; GLUCOSE, URINE (UA) NEGATIVE (NEGATIVE); KETONES,URINE 1+ (NEGATIVE); LEUKOCYTE ESTERASE ,URINE NEGATIVE (NEGATIVE); NITRITE,URINE NEGATIVE (NEGATIVE); PROTEIN,URINE 3+ (NEGATIVE)
[2019-05-08 19:18] LABS: ABG OXYGEN SATURATION 96 % (94-100); ABG PCO2 32 MMHG (35-45); ABG PH 7.44 (7.37-7.43); ABG PO2 80 MMHG (79-93); ABG TCO2 22.5 MMOL/L (21.0-31.0); ALLENS TEST POSITIVE; PATIENT TEMP 36.9; VENTILATOR NO
[2019-05-08 19:28] LABS: ALANINE AMINOTRANSFERASE 14 U/L (0-55); ALBUMIN 4.1 GM/DL (3.2-4.5); ALKALINE PHOSPHATASE 70 U/L (40-136); BILIRUBIN,TOTAL 0.8 MG/DL (0.1-1.0); BUN/CREATININE RATIO 12; CALCIUM 8.7 MG/DL (8.5-10.1); CARBON DIOXIDE 23 MMOL/L (21-32); CHLORIDE 104 MMOL/L (98-107); CREATININE SERUM 0.91 MG/DL (0.60-1.30); GFR ESTIMATED > 60; GLUCOSE 120 MG/DL (70-105); MAGNESIUM 1.6 MG/DL (1.6-2.4); POTASSIUM 3.5 MMOL/L (3.6-5.0); SODIUM 138 MMOL/L (135-145); TOTAL PROTEIN 7.1 GM/DL (6.4-8.2)
[2019-05-08 19:30] LABS: AMPHETAMINE SCREEN, URINE NEGATIVE (NEGATIVE); BARBITURATE SCREEN URINE NEGATIVE (NEGATIVE); BENZODIAZEPINES SCREEN URINE NEGATIVE (NEGATIVE); CANNABINOID SCREEN, URINE NEGATIVE (NEGATIVE); COCAINE SCREEN URINE NEGATIVE (NEGATIVE); METHADONE STAT NEGATIVE (NEGATIVE); METHAMPHETAMINE SCREEN URINE S NEGATIVE (NEGATIVE); OPIATE SCREEN URINE NEGATIVE (NEGATIVE); OXYCODONE STAT NEGATIVE (NEGATIVE); PROPOXYPHENE STAT NEGATIVE (NEGATIVE); TRICYCLIC ANTIDEPRESSANTS SCRE NEGATIVE (NEGATIVE)
[2019-05-08 19:33] LABS: CREATINE KINASE 178 U/L (30-200)
[2019-05-08 19:35] LABS: BACTERIA,URINE TRACE /HPF
[2019-05-08 19:46] LABS: BAND NEUTROPHILS 4 %; LYMPHOCYTES % (MANUAL) 7 %; MONOCYTES % (MANUAL) 6 %; NEUTROPHILS % (MANUAL) 83 %
[2019-05-08] MEDS ORDERED: VANCOMYCIN INJECTION 500 MG in NS (IVPB) 100 ML IV ONE (20:00)
--- NOTE | 2019-05-08 20:01 | Diagnostic Imaging Report ---
PROCEDURE: CT head without contrast. TECHNIQUE: Multiple contiguous axial images were obtained through the brain without the use of intravenous contrast. Auto Exposure Controls were utilized during the CT exam to meet ALARA standards for radiation dose reduction. INDICATION: Hypoglycemia and headache. Comparison is made with prior examination from 07/28/2018. FINDINGS: There is prominence of the ventricles and sulci. There is no hydrocephalus or cerebral edema. There is no midline shift or mass-effect. There is no intracranial mass, hemorrhage, or extra-axial fluid collection. There is some diffuse decreased attenuation of the periventricular white matter which is nonspecific. The visualized paranasal sinuses and mastoid air cells are clear. There are no regional areas of decreased attenuation appreciated to suggest an acute CVA. IMPRESSION: 1. No acute intracranial process. 2. Age-appropriate atrophy. 3. Decreased attenuation of the periventricular white matter which is nonspecific, however, likely reflects senescent change and/or chronic small vessel ischemic disease. Dictated by: Dictated on workstation # [id number]
--- NOTE | 2019-05-08 20:05 | Diagnostic Imaging Report ---
INDICATION: Hypoglycemia. COMPARISON: Prior examination from 07/23/2018. EXAMINATION: Single view of the chest was obtained. FINDINGS: There is cardiomegaly. There is some venous congestion. There are patchy bibasilar infiltrates. No pleural effusion or pneumothorax. Mediastinum is unremarkable. Pacemaker overlies the left hemithorax. IMPRESSION: 1. Patchy bibasilar infiltrates. 2. Cardiomegaly and some central pulmonary venous congestion. Dictated by: Dictated on workstation # [id number]
[2019-05-08 20:07] LABS: INR 1.3 (0.8-1.4); PROTHROMBIN TIME PATIENT 16.2 SEC (12.2-14.7)
[2019-05-08] MEDS ORDERED: 1/2 NS W/KCL 20 MEQ/L 1,000 ML IV ONE (21:22)
--- NOTE | 2019-05-08 21:28 | NUR ---
KIRSTIN LEE admitted to room CU2-1, with an admitting diagnosis of Hypoglycemia, Elevated Troponin , Physical Debility, on 05/08/19 from ED via stretcher, accompanied by Hospital Staff. KIRSTIN LEE introduced to surroundings, call light, bed controls, phone, TV, temperature control, lights, meal times, smoking policy, visitor policy, side rail policy, bathrooms and showers. Patient Rights given to patient in the handbook.KIRSTIN LEE verbalizes understanding that [facility] is not responsible for the loss or damage to any personal effects or valuables that are kept in the patients possession during their hospitalization.
[2019-05-08] MEDS ORDERED: ONDANSETRON 4 MG/2 ML (SDV) Z0FRAN IV PRN (21:30)
[2019-05-08] MEDS ORDERED: NITROGLYCERIN 0.4 MG SL TABS BTL 25'S SL PRN (21:45)
[2019-05-08] MEDS: 1/2 NS W/KCL 20 MEQ/L 1,000 ML IV SCH (21:45)
[2019-05-08] MEDS ORDERED: ACETAMINOPHEN 500 MG TAB (TYLENOL) PO PRN (21:45)
[2019-05-08] MEDS ORDERED: morphine INJ 4 MG/ML 1 ML (VIAL/SYRINGE) IV PRN (21:45)
[2019-05-09] VITALS (10 sets, daily range): BP systolic 121–178; BP diastolic 54–80
--- NOTE | 2019-05-09 | NUR ---
Pt blood sugar down to 85, this RN gave patient cup of orange juice with sugar packet, peanut butter and pudding. Will continue to monitor.
[2019-05-09] MEDS: inSUlin ASPART (NovoLOG) 1 UNIT/0.01 ML (CHARGE PER UNIT) SC SCH ×5 (00:21→20:56)
[2019-05-09 03:55] LABS: BASOPHILS % (AUTO) 0 % (0-10); EOSINOPHILS # (AUTO) 0.1 10^3/uL (0.0-0.3); EOSINOPHILS % (AUTO) 1 % (0-10); HEMATOCRIT 34 % (40-54); LYMPHOCYTES # (AUTO) 1.2 X 10^3 (1.0-4.0); LYMPHOCYTES % (AUTO) 14 % (12-44); MEAN CORPUSCULAR HEMOGLOBIN 29 PG (25-34); MEAN CORPUSCULAR HGB CONC 32 G/DL (32-36); MEAN CORPUSCULAR VOLUME 91 FL (80-99); MONOCYTES # (AUTO) 1.1 X 10^3 (0.0-1.0); MONOCYTES % (AUTO) 13 % (0-12); NEUTROPHILS # (AUTO) 6.5 X 10^3 (1.8-7.8); NEUTROPHILS % (AUTO) 73 % (42-75); PLATELET COUNT 247 10^3/uL (130-400); RED CELL DISTRIBUTION WIDTH 15.1 % (10.0-14.5); WHITE BLOOD COUNT 8.9 10^3/uL (4.3-11.0)
--- NOTE | 2019-05-09 04:00 | NUR ---
Pt's glucose 93 on morning labs. This RN gave cup of apple juice with sugar packet and some peanut butter. Will continue to monitor.
[2019-05-09] MEDS: 1/2 NS W/KCL 20 MEQ/L 1,000 ML IV SCH ×2 (04:01→18:42)
[2019-05-09 04:21] LABS: ALANINE AMINOTRANSFERASE 13 U/L (0-55); ALBUMIN 3.3 GM/DL (3.2-4.5); ALKALINE PHOSPHATASE 56 U/L (40-136); BILIRUBIN,TOTAL 0.7 MG/DL (0.1-1.0); BUN/CREATININE RATIO 12; CALCIUM 8.1 MG/DL (8.5-10.1); CARBON DIOXIDE 21 MMOL/L (21-32); CHLORIDE 107 MMOL/L (98-107); CHOLESTEROL 88 MG/DL (< 200); CREATININE SERUM 0.82 MG/DL (0.60-1.30); GFR ESTIMATED > 60; GLUCOSE 93 MG/DL (70-105); HDL CHOLESTEROL 38 MG/DL (40-60); POTASSIUM 3.4 MMOL/L (3.6-5.0); SODIUM 137 MMOL/L (135-145); TOTAL PROTEIN 5.7 GM/DL (6.4-8.2); TRIGLYCERIDES 60 MG/DL (<150); VLDL CHOLESTEROL 12 MG/DL (5-40)
--- NOTE | 2019-05-09 05:17 | Pulmonary Consultation ---
History of Present Illness History of Present Illness Date Seen by Provider: May 09, 2019 Time Seen by Provider: 05:12 Date of Admission History of Present Illness Patient present ER by EMS from home with chief complaint that family had not heard from him since Thursday, 8 days ago so they gave a call and he did not answer so they called EMS. Patient's presenting blood sugar was 25 to gave him 250 cc@10% extra dose and get his blood sugar up about 330 when he was slow to arouse. He is not having any lateralizing symptoms. He was trying to talk so they tried giving him some oral mucosa which he spit out. Is not complaining of any pain anywhere but he has some mild shortness of breath nasal congestion. He denies being sick lately. He is not really remember what happened over the past week. He does smoke cigarettes. EMS says no fever upon arrival. 12-lead did not demonstrate any ST changes were EMS. Allergies and Home Medications Allergies Coded Allergies: No Known Drug Allergies (Unverified , 06/02/10) Home Medications Aspirin 81 Mg Tablet.dr, 81 MG PO DAILY, (Reported) Finasteride 5 Mg Tablet, 5 MG PO DAILY, (Reported) Glimepiride 4 Mg Tablet, 4 MG PO DAILY, (Reported) Glimepiride 4 Mg Tablet, 2 MG PO HS, (Reported) Metformin HCl 500 Mg Tab.er.24h, 500 MG PO BID, (Reported) Metoprolol Succinate 25 Mg Tab.er.24h, 25 MG PO DAILY, (Reported) Simvastatin 40 Mg Tablet, 40 MG PO HS, (Reported) Sitagliptin Phosphate 100 Mg Tablet, 100 MG PO DAILY, (Reported) Tamsulosin HCl 0.4 Mg Cap, 0.4 MG PO BID, (Reported) Past Qqsirsx-Mwxrlp-Frnhew Hx Patient Social History Alcohol Use: Occasionally Uses Number of Drinks Today: AA Alcohol Beverage of Choice: Beer Recreational Drug Use: No Smoking Status: Current Everyday Smoker Type Used: Cigarettes 2nd Hand Smoke Exposure: Yes Recent Foreign Travel: No Contact w/Someone Who Travel: No Recent Infectious Disease Expo: No Recent Hopitalizations: Yes Immunizations Up To Date Tetanus Booster (TDap): Unknown Seasonal Allergies Seasonal Allergies: No Past Medical History Surgeries: Yes Pacemaker Respiratory: Yes Pneumonia, COPD Currently Using CPAP: No Currently Using BIPAP: No Cardiac: Yes (PACEMAKER, congestive heart failure) Atrial Fibrillation, Coronary Artery Disease, High Cholesterol, Hypertension Neurological: No Reproductive Disorders: No Genitourinary: Yes Prostate Problems, UTI-Chronic Gastrointestinal: No Gastroesophageal Reflux Musculoskeletal: Yes Degenerate Disk Disease, Arthritis, Back Injury Endocrine: Yes Diabetes, Non-Insulin dep HEENT: Yes Cataract Hearing Impairment: Hard of Hearing Cancer: No Psychosocial: No Integumentary: No Blood Disorders: Yes (anticoagulated for A. fib) Family Medical History Cancer, Hypertension, Stroke Sepsis Event Evaluation Height, Weight, BMI Height: 5'4.00" Weight: 171lbs. 0.0oz. 77.674156rs; 23.81 BMI Method:Stated Exam Exam Vital Signs Date Time Temp Pulse Resp B/P (MAP) Pulse Ox O2 Delivery O2 Flow Rate FiO2 05/09/19 04:00 95 Room Air 05/09/19 03:57 36.7 67 18 145/78 (100) 92 Room Air 05/09/19 02:00 80 16 159/72 (101) 94 Room Air 05/09/19 01:00 68 16 144/68 (93) 94 Room Air 05/09/19 00:45 80 05/09/19 00:08 37.0 05/09/19 00:00 80 16 160/80 (106) 95 Room Air 05/08/19 23:30 65 16 175/69 (104) 94 Room Air 05/08/19 23:00 80 16 177/80 (112) 94 Room Air 05/08/19 22:30 80 16 172/79 (110) 94 Room Air 05/08/19 22:15 82 16 171/78 (109) 96 Room Air 05/08/19 22:00 81 16 180/81 (114) 93 Room Air 05/08/19 22:00 36.7 81 165/71 Room Air 05/08/19 21:53 60 05/08/19 21:45 79 16 175/81 (112) 92 Room Air 05/08/19 21:30 Room Air 05/08/19 21:30 66 16 180/70 (106) 92 Room Air 05/08/19 21:21 36.7 80 16 181/81 (102) 95 Room Air 05/08/19 21:15 66 16 165/71 (102) 93 Room Air 05/08/19 21:15 36.7 2/23/20 19:19 96 Room Air 05/08/19 18:49 36.9 86 20 195/83 (120) 95 Room Air I & O 05/09/19 07:00 Intake Total 3000 ml Balance 3000 ml Height & Weight Height: 5'4.00" Weight: 171lbs. 0.0oz. 77.726993bv; 23.81 BMI Method:Stated Capillary Refill: Less Than 3 Seconds Peripheral Pulses: 2+ Dorsalis Pedis (R), 2+ Left Dors-Pedis (L), 2+ Radial Pulses (R), 2+ Radial Pulses (L) Gastrointestinal: normal bowel sounds, non tender, soft Results Lab Laboratory Tests 05/08/19 18:51 05/09/19 03:00 Assessment/Plan Assessment/Plan persistent Hypoglycemia - suspect oral hypoglycemic OD -Have family bring in meds for pill count -Start D51/2 NS -Accu checks Q 2 x 4 then Q 4 metabolic encephalopathy secondary to hypoglycemia - suspect chronic dementia -Monitor -UDS is negative -CT negative NSTEMI -Consult cardiology KEKE BRUCE DO May 09, 2019 05:16
[2019-05-09 05:35] LABS: MAGNESIUM 1.5 MG/DL (1.6-2.4); PHOSPHORUS 2.3 MG/DL (2.3-4.7)
[2019-05-09] MEDS: D5 1/2 NS W/KCL 20 MEQ/L 1,000 ML IV SCH ×2 (06:46→12:15)
[2019-05-09] MEDS: POTASSIUM CL 10MEQ/50ML IVPB 50 ML IV SCH ×4 (06:46→11:44)
[2019-05-09] MEDS: ENOXAPARIN 40 MG/0.4 ML (LOVENOX) SYR SC SCH (06:47)
[2019-05-09] MEDS ORDERED: FLU QUADRIvalent (5+ YOA) 2019-2020 (AFLURIA) 0.5 ML IM ONE (07:00)
--- NOTE | 2019-05-09 07:24 | Diagnostic Imaging Report ---
INDICATION: Cardiac pacemaker, shortness of breath. COMPARISON: 05/08/2019. FINDINGS: Single view of the chest demonstrates cardiac enlargement with stable central vascular congestion. No large effusion seen. There is no pneumothorax. Pacemaker is stable. IMPRESSION: Cardiac enlargement with unchanged central vascular congestion. Dictated by: Dictated on workstation # [id number]
[2019-05-09] MEDS: RT-ALBUTEROL/IPRATROPIUM 3 ML (DUONEB) VIAL INH SCH ×4 (07:39→18:41)
--- NOTE | 2019-05-09 07:59 | Consultation-Cardiology ---
HPI-Cardiology Cardiology Consultation: Date of Consultation 05/09/19 Time Seen by a Provider: 08:15 Date of Admission 05-08-2019 Attending Physician Fabian Gomes MD Admitting Physician Pricila Clemente DO Consulting Physician Ni Barrientos MD HPI: Chief Complaint: Elevated troponin Mr. Lee is a 79 year old male admitted to ICU 2 from the ED. He is currently eating breakfast. He reports he is unaware of what brought him to the hospital, but thinks it was because of his diabetes. No c/o CP, palpitations, dyspnea, syncope or near syncope. No c/o fever or chills. No c/o n/v/d. No c/o LE swelling. Review of Systems-Cardiology Review of Systems Constitutional: No chills, No fever Eyes: No vision change Ears/Nose/Throat: No epistaxis, No recent hearing loss Respiratory: As described under HPI Cardiovascular: As described under HPI Gastrointestinal: No constipation, No diarrhea, No nausea, No vomiting Genitourinary: No hematuria Musculoskeletal: no symptoms reported Skin: No rash on exposed areas, No ulcerations on exposed areas Psychiatric/Neurological: No seizure, No focal weakness, No syncope Hematologic: No bleeding abnormalities All Other Systems Reviewed Negative Unless Noted: Yes DMW-Dsntyu-Jsqeoe Hx Patient Social History Alcohol Use: Occasionally Uses Recreational Drug Use: No Smoking Status: Current Everyday Smoker Type Used: Cigarettes 2nd Hand Smoke Exposure: Yes Recent Foreign Travel: No Recent Infectious Disease Expo: No Hospitalization with Isolation: Denies Immunizations Up To Date Tetanus Booster (TDap): Unknown Past Medical History PMH As described under Assessment. Family Medical History Family Medical History: He reports his mother had hypertension and a stroke. He also reports his sister had a stroke. Allergies and Home Medications Allergies Coded Allergies: No Known Drug Allergies (Unverified , 06/02/10) Home Medications Aspirin 81 Mg Tablet.dr, 81 MG PO DAILY, (Reported) Finasteride 5 Mg Tablet, 5 MG PO DAILY, (Reported) Glimepiride 4 Mg Tablet, 4 MG PO DAILY, (Reported) Glimepiride 4 Mg Tablet, 2 MG PO HS, (Reported) Metformin HCl 500 Mg Tab.er.24h, 500 MG PO BID, (Reported) Metoprolol Succinate 25 Mg Tab.er.24h, 25 MG PO DAILY, (Reported) Simvastatin 40 Mg Tablet, 40 MG PO HS, (Reported) Sitagliptin Phosphate 100 Mg Tablet, 100 MG PO DAILY, (Reported) Tamsulosin HCl 0.4 Mg Cap, 0.4 MG PO BID, (Reported) Physical Exam-Cardiology Physical Exam Vital Signs/I&O 05/10/19 05/10/19 05/10/19 05/10/19 00:00 01:22 03:50 07:00 Temp 36.3 36.6 Pulse 68 60 68 60 Resp 16 18 B/P (MAP) 184/83 (116) 172/79 (110) Pulse Ox 97 96 O2 Delivery Room Air Room Air 05/10/19 05/10/19 08:00 09:00 Temp 36.1 Pulse 65 Resp 18 B/P (MAP) 180/85 (116) Pulse Ox 94 94 O2 Delivery Room Air Room Air 05/10/19 00:00 Intake Total 1840 ml Output Total 1575 ml Balance 265 ml Capillary Refill : Less Than 3 Seconds Constitutional: AAO x 3, well-developed, well-nourished HEENT: PERRL, hearing is well preserved Neck: No carotid bruit; carotid pulses are 2 + bilaterally Respiratory: No accessory muscle use, No respiratory distress; chest expansion is symmetric, chest is bilaterally symmetric, lungs clear to auscultation Cardiovascular: regular rate-rhythm; No JVD; S1 and S2 Gastrointestinal: No tender; audible bowel sounds Extremities: no lower extremity edema bilateral Neurologic/Psychiatric: grossly intact (moves all extremities) Skin: No rash on exposed areas, No ulcerations on exposed areas Data Review Labs Laboratory Tests 05/09/19 12:06: Glucometer 302H 05/09/19 15:47: Glucometer 161H 05/09/19 20:48: Glucometer 125H 05/10/19 05:28: Glucometer 102, White Blood Count 7.3, Red Blood Count 4.04L, Hemoglobin 11.9L, Hematocrit 37L, Mean Corpuscular Volume 91, Mean Corpuscular Hemoglobin 30, Mean Corpuscular Hemoglobin Concent 32, Red Cell Distribution Width 15.0H, Platelet Count 225, Mean Platelet Volume 10.7H, Neutrophils (%) (Auto) 75, Lymphocytes (%) (Auto) 11L, Monocytes (%) (Auto) 11, Eosinophils (%) (Auto) 3, Basophils (%) (Auto) 0, Neutrophils # (Auto) 5.5, Lymphocytes # (Auto) 0.8L, Monocytes # (Auto) 0.8, Eosinophils # (Auto) 0.2, Basophils # (Auto) 0.0, Sodium Level 138, Potassium Level 4.0, Chloride Level 109H, Carbon Dioxide Level 21, Anion Gap 8, Blood Urea Nitrogen 10, Creatinine 0.82, Estimat Glomerular Filtration Rate > 60, BUN/Creatinine Ratio 12, Glucose Level 108H, Calcium Level 8.2L Microbiology 05/08/19 Influenza Types A,B Antigen (JUICE) - Final, Complete 05/08/19 Blood Culture - Preliminary, Resulted No growth 05/08/19 Urine Culture - Preliminary, Resulted Strep Species, Alpha Hemolytic Radiology NAME: KIRSTIN LEE [facility] REC#: [id number] PT STATUS: ADM Darby : 1940 PHYSICIAN: FABIAN GOMES MD ADMIT DATE: 05/08/19/ICU Draft Date of Exam:05/09/19 CHEST 1 VIEW, AP/PA ONLY INDICATION: Cardiac pacemaker, shortness of breath. COMPARISON: 05/08/2019. FINDINGS: Single view of the chest demonstrates cardiac enlargement with stable central vascular congestion. No large effusion seen. There is no pneumothorax. Pacemaker is stable. IMPRESSION: Cardiac enlargement with unchanged central vascular congestion. Dictated on workstation # [id number] Dict: 05/09/19721 Trans: 05/09/19 0723 [id number] Interpreted by: LOUISE GARCIA Electronically signed by: ECG Impression ECG Comment V-paced A/P-Cardiology Assessment/Admission Diagnosis Mildly elevated troponin Acute on chronic diastolic CHF Hypoglycemia - management per medical services Electrolyte abnormalities PAF, as documented on pacemaker interrogation of 02/27/16 Pt refuses to take OAC because of a h/o GI and urinary bleeds Syncope due to intermittent advanced AV block, corrected with dual-chamber pacemaker implantation on 06/02/2010. The pacemaker is working normally per interrogation carried out on 09/01/18 Vertebrobasilar insufficiency, which has been followed by his Neurologist, Dr. Aguirre Coronary artery disease primary consisting of a chronically occluded and collateralized right coronary artery and moderate mid-vessel disease of the left anterior descending artery, unchanged on his most recent cardiac catheterization of 09/20/2008. MPI of 08/26/17 showed inferior infarction with minimal monica- infarct ischemia, basal inf hypokinesis, LVEF 63% Echo of 09/01/17: LVEF 60-65%, grade 2 perez dysfunction, mod MAC, mild MR, AoV sclerosis w/o stenosis, PASP 35-40 mmHg No aneurysm involving the mid or distal abdominal aorta u/s on 01/02/15 ([place], [place]) Symptoms of intermittent hematuria. This has been diagnosed to be prostate hypertrophy and is being followed by his urologist, Dr Daniel Hypertension, controlled. Hyperlipidemia being treated with simvastatin, being followed by Dr Clemente. Maturity onset diabetes mellitus. Tobaccoism from which he has been advised to refrain. Moderate right internal carotid arterial disease with a diameter stenosis of approximately 40%. Moderate disease of the left common carotid with a diameter stenosis of approximately 49%. Mild left internal carotid artery disease with a diameter stenosis of 1-40% per carotid ulstrasound of 07-30-2012. Carotid u/s 08-11-14 showed mild to mod mixed bilat plaque involving both common and internal carotid arteries, without evidence of hemodynamic significance. Carotid u/s of 08/25/17: moderate bilat carotid plaque w/o evidence of hemodynamic signficance Chronic right bundle branch block. History of pulmonary nodule, which has previously been followed by Dr. Giang at [facility], we have referred him to Dr. Mulligan. This has been followed by Dr Mulligan and Dr Clemente Chronic exertional dyspnea, clinically stable. Bilateral leg claudication which currently appears well controlled. History of right common angioplasty and right common iliac artery stenting with a 9 x 25 mm iliac artery stent followed by femoral-femoral crossover bypass grafting with a 7 mm straight EPTFE graft by Dr. Giang in March 2006. A Doppler study of February 2011 indicated bilateral aorto-femoral bypass grafting with patency of the visualized distal aspect of the graft at femoral anastomosis. There was considerable distal disease reported. He does report chronic 1-2 block leg claudication symptoms, but this unchanged Discussion and Recomendations Mildly elevated troponin likely secondary to hypoglyce Acute on chronic diastolic CHF - treat with diuretics Electrolyte abnormalities - replace Resume home medications including ASA d/t known h/o CAD Refuses OAC other than ASA as noted above Continue Lovenox Monitor lab closely Further recs will be based on hospital course We would like to thank medical services for this consult Clinical Quality Measures DVT/VTE Risk/Contraindication: Risk Factor Score Per Nursin RFS Level Per Nursing on Admit: 4+=Very High Stroke: Date of last known well: Apr 30, 2019 CRIS MCKEON May 09, 2019 07:58
[2019-05-09] MEDS ORDERED: FUROSEMIDE 40 MG/4 ML INJ (LASIX) IVP ONE (08:45)
[2019-05-09] MEDS ORDERED: ASPIRIN E.C. 81 MG (ECOTRIN) TAB PO SCH (09:00)
[2019-05-09] MEDS: MAGNESIUM 1 GM/100 ML IVPB 100 ML IV SCH ×2 (10:16→12:14)
[2019-05-09] MEDS: meTOproloL SUCCINATE 50 MG (TOPROL XL) TAB PO SCH (10:18)
[2019-05-09] MEDS ORDERED: METF500T19 PO (10:33)
[2019-05-09] MEDS ORDERED: MTP25TSR PO (10:33)
--- NOTE | 2019-05-09 10:33 | Physical Therapy Evaluation ---
PT Evaluation-General Medical Diagnosis Admission Date May 08, 2019 at 20:45 Medical Diagnosis: hypoglycemia Onset Date: May 08, 2019 Therapy Diagnosis Therapy Diagnosis: weakness; abn gait Height/Weight Height (Feet): 5 Height (Inches): 4.00 Weight (Pounds): 171 Weight (Ounces): 0.0 Precautions Precautions/Isolations: Fall Prevention, Standard Precautions Weight Bear Status Right Lower Extremity: Right Weight Bearing/Tolerated Left Lower Extremity: Left Weight Bearing/Tolerated Referral Physician: Stephanie Reason for Referral: Evaluation/Treatment Medical History Pertinent Medical History: Atrial Fib, CAD, DM, GERD, HTN, Smoking Current History Pt admitted via EMS due to low blood sugar. Admitted to ICU for medical care. Reviewed History: Yes Social History Home: Single Level Current Living Status: Alone Entry Into Home: Stairs With Railing Prior Prior Level of Function SCALE: Activities may be completed with or without assistive devices. 0-Yhzlpkgnzn-ylpxwdi completes the activity by him/herself with no assistance from a helper. 5-Set-up or Clean-up Assistance-helper sets up or cleans up; patient completes activity. [place] assists only prior to or following the activity. 4-Supervision or Touching Assistance-helper provides verbal cues and/or touching/steadying and/or contact guard assistance as patient completes activity. Assistance may be provided throughout the activity or intermittently. 3-Partial/Moderate Assistance-helper does LESS THAN HALF the effort. [place] lifts, holds or supports trunk or limbs, but provides less than half the effort. 2-Substantial/Maximal Assistance-helper does MORE THAN HALF the effort. [place] lifts or holds trunk or limbs and provides more than half the effort. 2-Lhgqrfmbw-qepxxi does ALL the effort. Patient does none of the effort to complete the activity. Or, the assistance of 2 or more helpers is required for the patient to complete the activity. If activity was not attempted, code reason: 7-Patient Refused. 9-Not Applicable-not attempted and the patient did not perform the activity before the current illness, exacerbation or injury. 10-Not Attempted due to Environmental Limitations-(lack of equipment, weather restraints, etc.). 88-Not Attempted due to Medical Conditions or Safety Concerns. Bed Mobility: 6 Transfers (B,C,W/C): 6 Gait: 6 (occas use of a walker) Stairs: 6 Indoor Mobility (Ambulation): Independent Stairs: Independent Prior Devices Use: Walker Pt denies any help in his home; reports he has assist going to the grocery store. PT Evaluation-Current Subjective Agrees to PT. Reports he is feeling well. Objective Patient Orientation: Person, Place, Time ROM/Strength ROM Lower Extremities WNL Strength Lower Extremities grossly 4-5 Integumentary/Posture Integumentary refer to nursing notes. Bowel Incontinence: No Bladder Incontinence: Rasmussen Cath Neuromuscular (Tone, Coordination, Reflexes) rounded shoulders and head forward. Sensory Vision: Functional Hearing: Functional Hand Dominance: Right Sensation Right Lower Extremit: Intact Sensation Left Lower Extremity: Intact Transfers Roll Left to Right (QC): 5 Sit to Lying (QC): 5 Lying to Sitting/Side of Bed(Q: 5 Sit to Stand (QC): 4 Chair/Jco-in-Vcuwk Xfer(QC): 4 Pt took 5-6 steps with FWW to transfer to the chair; with CGA and assist to manage the lines. Balance Sitting Static: Good Sitting Dynamic: Good Standing Static: Fair Standing Dynamic: Fair Treatment Pt up in chair post treatment with OT; OT to follow with placment of chair alarm. Assessment/Needs Pt is Supervision to SBA with transfers and CGA with gait. Pt will benefit from short term PT to address functional mobility and strength to allow him to return home as before. Rehab Potential: Good PT Halfway Goals Travel Assistant Goals PT Halfway Goals Time Frame: May 16, 2019 Roll Left & Right (QC): 6 Sit to Lying (QC): 6 Lying-Sitting on Side/Bed(QC): 6 Sit to Stand (QC): 6 Chair/Ibz-dv-Fmslj Xfer(QC): 6 Walk 150 ft (QC): 6 PT Plan Problem List Problem List: Activity Tolerance, Functional Strength, Safety, Balance, Gait, Transfer Treatment/Plan Treatment Plan: Continue Plan of Care Treatment Plan: Bed Mobility, Education, Functional Activity Kevan, Functional Strength, Gait, Safety, Therapeutic Exercise, Transfers Treatment Duration: May 16, 2019 Frequency: 5 times per week Estimated Hrs Per Day: .25 hour per day Safety Risks/Education Patient Education: Transfer Techniques, Safety Issues Teaching Recipient: Patient Teaching Methods: Demonstration, Discussion Response to Teaching: Reinforcement Needed Time/GCodes Time In: 955 Time Out: 1011 Total Billed Treatment Time: 16 Total Billed Treatment visit EVM 16 HANNAH DUARTE PT May 09, 2019 10:33
--- NOTE | 2019-05-09 11:07 | Occupational Therapy Eval ---
OT Evaluation-General/PLF Medical Diagnosis Admission Date May 08, 2019 at 20:45 Medical Diagnosis: hypoglycemia Onset Date: May 08, 2019 Therapy Diagnosis Therapy Diagnosis: impaired ADLs/functional mobility. Height/Weight Height (Feet): 5 Height (Inches): 4.00 Weight (Pounds): 171 Weight (Ounces): 0.0 Precautions Precautions/Isolations: Fall Prevention, Standard Precautions Referral Physician: Stephanie Referral Reason: Evaluation/Treatment Medical History Pertinent Medical History: Atrial Fib, Arthritis, CAD, DM, GERD, HTN, Smoking Additional Medical History pacemaker (2010), high cholesterol, chronic UTI Current History Pt admitted via EMS due to low blood sugar. Admitted to ICU for medical care. Social History Home: Single Level Current Living Status: Alone Entry Into Home: Stairs With Railing ADL-Prior Level of Function SCALE: Activities may be completed with or without assistive devices. 9-Tkhbpbuttc-zitacjy completes the activity by him/herself with no assistance from a helper. 5-Set-up or Clean-up Assistance-helper sets up or cleans up; patient completes activity. [place] assists only prior to or following the activity. 4-Supervision or Touching Assistance-helper provides verbal cues and/or touching/steadying and/or contact guard assistance as patient completes activity. Assistance may be provided throughout the activity or intermittently. 3-Partial/Moderate Assistance-helper does LESS THAN HALF the effort. [place] lifts, holds or supports trunk or limbs, but provides less than half the effort. 2-Substantial/Maximal Assistance-helper does MORE THAN HALF the effort. [place] lifts or holds trunk or limbs and provides more than half the effort. 8-Coxfaghkj-oaypgw does ALL the effort. Patient does none of the effort to complete the activity. Or, the assistance of 2 or more helpers is required for the patient to complete the activity. If activity was not attempted, code reason: 7-Patient Refused. 9-Not Applicable-not attempted and the patient did not perform the activity before the current illness, exacerbation or injury. 10-Not Attempted due to Environmental Limitations-(lack of equipment, weather restraints, etc.). 88-Not Attempted due to Medical Conditions or Safety Concerns. ADL PLOF Comments Pt reports he lived alone and he was able to complete all aspects of self care prior to hospitalization. He used a walker as he needed to, and he reports using a cart at [facility] if he was tired. Self Care: Independent Functional Cognition: Independent OT Current Status Subjective Pt sitting upright in chair post PT session. He agreed to OT evaluation on this date and did not report any pain during session. Mental Status/Objective Patient Orientation: Confused Pt able to state he was in the hospital but reported he was unsure why he was her. He recalled his name but when asked about his birthday he reported it was November 06, 1939. When reoriented to his birthday being in January, pt reports "oh yes, I don't know why I keep thinking October." Attachments: Rasmussen Catheter, IV, Telemetry Current Glasses/Contacts: No Hearing Aids: No Dentures/Partials: Yes Hand Dominance: Right Upper Extremity ROM WFL Upper Extremity Coordination WFL Upper Extremity Sensation pt denies tingling/numbness Upper Extremity Strength grossly 3/5 MMT Other Treatments Pt seated in recliner, pt provided information on home set up and PLOF. He then completed stand at [facility] with CGA while chair alarm was placed underneath him. Pt participated in ROM screening, OT educated pt on the purpose and benefits of OT and instructed him on BUE exercises including shoulder flexion & elbow flexion. Pt verbalized understanding, and demo'd x5 reps each. OT educated pt on the importance of using the call light when he needs something, and to not get up on his own, he verbalized understanding. Post OT session, pt seated upright in recliner, chair alarm on, call light in reach and all needs met with nursing present. Education OT Patient Education: Correct positioning, Energy conservation, Modified ADL techniques, Progress toward Goal/Update tx plan, Purpose of tx/functional activities, Transfer techniques Teaching Recipient: Patient Teaching Methods: Discussion Response to Teaching: Verbalize Understanding, Reinforcement Needed OT Snf Goals Prospecting Driller Helper Goals Time Frame: May 20, 2019 Eating (QC): 6 Oral Hygiene (QC): 6 Toileting Hygiene (QC): 6 Shower/Bathe Self (QC): 6 Upper Body Dressing (QC): 6 Lower Body Dressing (QC): 6 On/Off Footwear (QC): 6 1=Demonstrate adherence to instructed precautions during ADL tasks. 2=Patient will verbalize/demonstrate understanding of assistive devices/modifications for ADL. 3=Patient will improve strength/tolerance for activity to enable patient to perform ADL's. OT Education/Plan Problem List/Assessment Assessment: Decreased Activ Tolerance, Decreased UE Strength, Impaired I ADL's, Impaired Self-Care Skills Discharge Recommendations Plan/Recommendations: Continue POC Treatment Plan/Plan of Care Treatment,Training & Education: Yes Patient would benefit from OT for education, treatment and training to promote independence in ADL's, mobility, safety and/or upper extremity function for ADL's. Plan of Care: ADL Retraining, Functional Mobility, UE Funct Exercise/Act Treatment Duration: May 20, 2019 Frequency: 5 times per week Estimated Hrs Per Day: .25 hour per day Agreement: Yes Rehab Potential: Good Time/GCodes Start Time: 10:11 Stop Time: 10:21 Total Time Billed (hr/min): 10 Billed Treatment Time 1, ANGE GARCIA OT May 09, 2019 11:07
[2019-05-09] MEDS ORDERED: GLIM4TAB5 PO ×2 (11:46)
[2019-05-09] MEDS ORDERED: ASPI-983 PO (11:47)
[2019-05-09] MEDS ORDERED: FINA5TAB6 PO (11:48)
[2019-05-09] MEDS ORDERED: TMSL.4C PO (11:48)
--- NOTE | 2019-05-09 11:49 | NUR ---
SPOKE WITH PT, WENT THRU THE EXT MED HISTORY, CALLED DR. ORONA'S OFFICE AND GOT A CURRENT FILL LIST SENT FROM [facility] TO COMPLETE THE MED REC. PT WAS UNSURE OF MEDS HE WAS TAKING AND SEEMED CONFUSED WHEN I ASKED ABOUT THEM. I REACHED OUT TO HIS PCP TO GET A CURRENT MED LIST AND ALSO HAD [facility] FAX ME WHAT THEY HAVE FILLED RECENTLY (I WILL ATTACH A COPY TO THE PATIENTS FILE) 02-05-2019 GLIMEPIRIDE 4MG #135/90DS - THIS DID NOT SHOW ON THE EXT MED HISTORY. OTC MEDS: ASPIRIN 81MG
[2019-05-09] MEDS ORDERED: MAGNESIUM 1 GM/100 ML IVPB 100 ML IV ONE (12:07)
--- NOTE | 2019-05-09 12:38 | Consultation-Cardiology ---
HPI-Cardiology Cardiology Consultation: Date of Consultation 05/09/19 Time Seen by a Provider: 09:10 Date of Admission Attending Physician Mary Bell MD Admitting Physician Pricila Clemente DO Consulting Physician VELASQUEZ HANNON MD, MA, FACP, FACC, FSCAI, CCDS HPI: Chief Complaint: Reason for consultation: Elevated troponin HPI Mr. Bar is a 79 year old male admitted to ICU 2 from the ED. He is currently eating breakfast. He reports he is unaware of what brought him to the hospital, but thinks it was because of his diabetes. He is reported to have been out of touch with his family who sent EMS to check on him. He was found confused, hyporesponsive, and hypoglycemid. No c/o CP, palpitations, dyspnea, syncope or near syncope. No c/o fever or chills. No c/o n/v/d. No c/o LE swelling. Review of Systems-Cardiology Review of Systems Constitutional: No chills, No fever Eyes: No vision change Ears/Nose/Throat: No epistaxis, No recent hearing loss Respiratory: As described under HPI Cardiovascular: As described under HPI Gastrointestinal: No constipation, No diarrhea, No nausea, No vomiting Genitourinary: No hematuria Musculoskeletal: no symptoms reported Skin: No rash on exposed areas, No ulcerations on exposed areas Psychiatric/Neurological: No seizure, No focal weakness, No syncope Hematologic: No bleeding abnormalities All Other Systems Reviewed Negative Unless Noted: Yes ISA-Lypjem-Eutray Hx Patient Social History Alcohol Use: Occasionally Uses Recreational Drug Use: No Smoking Status: Current Everyday Smoker Type Used: Cigarettes 2nd Hand Smoke Exposure: Yes Recent Foreign Travel: No Recent Infectious Disease Expo: No Hospitalization with Isolation: Denies Immunizations Up To Date Tetanus Booster (TDap): Unknown Past Medical History PMH As described under Assessment. Family Medical History Family Medical History: He reports his mother had hypertension and a stroke. He also reports his sister had a stroke. Allergies and Home Medications Allergies Coded Allergies: No Known Drug Allergies (Unverified , 06/02/10) Home Medications Aspirin 81 Mg Tablet.dr, 81 MG PO DAILY, (Reported) Finasteride 5 Mg Tablet, 5 MG PO DAILY, (Reported) Glimepiride 4 Mg Tablet, 4 MG PO DAILY, (Reported) Glimepiride 4 Mg Tablet, 2 MG PO HS, (Reported) Metformin HCl 500 Mg Tab.er.24h, 500 MG PO BID, (Reported) Metoprolol Succinate 25 Mg Tab.er.24h, 25 MG PO DAILY, (Reported) Simvastatin 40 Mg Tablet, 40 MG PO HS, (Reported) Sitagliptin Phosphate 100 Mg Tablet, 100 MG PO DAILY, (Reported) Tamsulosin HCl 0.4 Mg Cap, 0.4 MG PO BID, (Reported) Patient Home Medication List Home Medication List Reviewed: Yes Physical Exam-Cardiology Physical Exam Vital Signs/I&O 05/09/19 05/09/19 05/09/19 05/09/19 00:45 01:00 02:00 03:57 Temp 36.7 Pulse 80 68 80 67 Resp 16 16 18 B/P (MAP) 144/68 (93) 159/72 (101) 145/78 (100) Pulse Ox 94 94 92 O2 Delivery Room Air Room Air Room Air 05/09/19 05/09/19 05/09/19 05/09/19 04:00 05:00 06:00 07:36 Pulse 66 61 63 Resp 16 16 B/P (MAP) 157/71 (99) 144/60 (88) Pulse Ox 95 92 93 O2 Delivery Room Air Room Air Room Air 05/09/19 05/09/19 05/09/19 05/09/19 07:39 08:00 08:00 11:17 Temp 36.9 B/P (MAP) 152/68 (96) Pulse Ox 94 96 O2 Delivery Room Air Room Air Room Air 05/09/19 12:00 B/P (MAP) 159/70 (99) O2 Delivery Room Air Capillary Refill : Less Than 3 Seconds Constitutional: AAO x 3, well-developed, well-nourished HEENT: PERRL, hearing is well preserved Neck: No carotid bruit; carotid pulses are 2 + bilaterally Respiratory: No accessory muscle use, No respiratory distress; chest expansion is symmetric, chest is bilaterally symmetric, lungs clear to auscultation Cardiovascular: regular rate-rhythm; No JVD; S1 and S2 Gastrointestinal: No tender; audible bowel sounds Extremities: no lower extremity edema bilateral Neurologic/Psychiatric: grossly intact (moves all extremities) Skin: No rash on exposed areas, No ulcerations on exposed areas Data Review Labs Laboratory Tests 05/08/19 18:51: White Blood Count 8.7, Red Blood Count 4.26L, Hemoglobin 12.6L, Hematocrit 39L, Mean Corpuscular Volume 91, Mean Corpuscular Hemoglobin 30, Mean Corpuscular Hemoglobin Concent 33, Red Cell Distribution Width 15.0H, Platelet Count 271, Mean Platelet Volume 10.7H, Neutrophils (%) (Auto) 88H, Lymphocytes (%) (Auto) 6L, Monocytes (%) (Auto) 6, Eosinophils (%) (Auto) 0, Basophils (%) (Auto) 0, Neutrophils # (Auto) 7.7, Lymphocytes # (Auto) 0.5L, Monocytes # (Auto) 0.5, Eosinophils # (Auto) 0.0, Basophils # (Auto) 0.0, Neutrophils % (Manual) 83, Lymphocytes % (Manual) 7, Monocytes % (Manual) 6, Band Neutrophils 4, Prothrombin Time 16.2H, INR Comment 1.3, Activated Partial Thromboplast Time 30, Sodium Level 138, Potassium Level 3.5L, Chloride Level 104, Carbon Dioxide Level 23, Anion Gap 11, Blood Urea Nitrogen 11, Creatinine 0.91, Estimat Glomerular Filtration Rate > 60, BUN/Creatinine Ratio 12, Glucose Level 120H, Calcium Level 8.7, Corrected Calcium 8.6, Magnesium Level 1.6, Total Bilirubin 0.8, Aspartate Amino Transf (AST/SGOT) 17, Alanine Aminotransferase (ALT/SGPT) 14, Alkaline Phosphatase 70, Total Creatine Kinase 178, Troponin I 0.043H, Total Protein 7.1, Albumin 4.1, Serum Alcohol < 10 05/08/19 19:00: Lactic Acid Level 1.81 05/08/19 19:05: Urine Color YELLOW, Urine Clarity CLEAR, Urine pH 7.0, Urine Specific [place] 1.025H, Urine Protein 3+H, Urine Glucose (UA) NEGATIVE, Urine Ketones 1+H, Urine Nitrite NEGATIVE, Urine Bilirubin NEGATIVE, Urine Urobilinogen 0.2, Urine Leukocyte Esterase NEGATIVE, Urine RBC (Auto) 2+H, Urine RBC 5-10H, Urine WBC 2- 5, Urine Squamous Epithelial Cells NONE, Urine Crystals NONE, Urine Bacteria TRACE, Urine Casts NONE, Urine Mucus NEGATIVE, Urine Culture Indicated NO, Urine Opiates Screen NEGATIVE, Urine Oxycodone Screen NEGATIVE, Urine Methadone Screen NEGATIVE, Urine Propoxyphene Screen NEGATIVE, Urine Barbiturates Screen NEGATIVE, Ur Tricyclic Antidepressants Screen NEGATIVE, Urine Phencyclidine Screen NEGATIVE, Urine Amphetamines Screen NEGATIVE, Urine Methamphetamines Screen NEGATIVE, Urine Benzodiazepines Screen NEGATIVE, Urine Cocaine Screen NEGATIVE, Urine Cannabinoids Screen NEGATIVE 05/08/19 19:10: Blood Gas Puncture Site RIGHT RADIAL, Blood Gas Patient Temperature 36.9, Arterial Blood pH 7.44H, Arterial Blood Partial Pressure CO2 32L, Arterial Blood Partial Pressure O2 80, Arterial Blood HCO3 22L, Arterial Blood Total CO2 22.5, Arterial Blood Oxygen Saturation 96, Arterial Blood Base Excess -2.0, Maicol Test POSITIVE, Blood Gas Ventilator Setting NO, Blood Gas Inspired Oxygen N/A 05/09/19 01:01: Troponin I 0.047H 05/09/19 03:00: White Blood Count 8.9, Red Blood Count 3.76L, Hemoglobin 11.0L, Hematocrit 34L, Mean Corpuscular Volume 91, Mean Corpuscular Hemoglobin 29, Mean Corpuscular Hemoglobin Concent 32, Red Cell Distribution Width 15.1H, Platelet Count 247, Mean Platelet Volume 11.0H, Neutrophils (%) (Auto) 73, Lymphocytes (%) (Auto) 14, Monocytes (%) (Auto) 13H, Eosinophils (%) (Auto) 1, Basophils (%) (Auto) 0, Neutrophils # (Auto) 6.5, Lymphocytes # (Auto) 1.2, Monocytes # (Auto) 1.1H, Eosinophils # (Auto) 0.1, Basophils # (Auto) 0.0, Sodium Level 137, Potassium Level 3.4L, Chloride Level 107, Carbon Dioxide Level 21, Anion Gap 9, Blood Urea Nitrogen 10, Creatinine 0.82, Estimat Glomerular Filtration Rate > 60, BUN/Creatinine Ratio 12, Glucose Level 93, Calcium Level 8.1L, Corrected Calcium 8.7, Phosphorus Level 2.3, Magnesium Level 1.5L, Total Bilirubin 0.7, Aspartate Amino Transf (AST/SGOT) 14, Alanine Aminotransferase (ALT/SGPT) 13, Alkaline Phosphatase 56, B-Type Natriuretic Peptide 448.2H, Total Protein 5.7L, Albumin 3.3, Triglycerides Level 60, Cholesterol Level 88, LDL Cholesterol Direct 32, VLDL Cholesterol 12, HDL Cholesterol 38L 05/09/19 07:00: Troponin I 0.046H Microbiology 05/08/19 Influenza Types A,B Antigen (JUICE) - Final, Complete A/P-Cardiology Assessment/Admission Diagnosis Minimally elevated troponin, likely type 2 MD, likely due to hypoxia during his episode of hyporesponsiveness and hypoglycemia Acute on chronic diastolic CHF Hypoglycemia - management per medical services Electrolyte abnormalities PAF, as documented on pacemaker interrogation of 02/27/16 Pt refuses to take OAC because of a h/o GI and urinary bleeds Syncope due to intermittent advanced AV block, corrected with dual-chamber pacemaker implantation on 06/02/2010. The pacemaker is working normally per interrogation carried out on 09/01/18 Vertebrobasilar insufficiency, which has been followed by his Neurologist, Dr. Aguirre Coronary artery disease primary consisting of a chronically occluded and collateralized right coronary artery and moderate mid-vessel disease of the left anterior descending artery, unchanged on his most recent cardiac catheterization of 09/20/2008. MPI of 08/26/17 showed inferior infarction with minimal monica- infarct ischemia, basal inf hypokinesis, LVEF 63% Echo of 09/01/17: LVEF 60-65%, grade 2 perez dysfunction, mod MAC, mild MR, AoV sclerosis w/o stenosis, PASP 35-40 mmHg No aneurysm involving the mid or distal abdominal aorta u/s on 01/02/15 ([facility], [place], [place]) Symptoms of intermittent hematuria. This has been diagnosed to be prostate hypertrophy and is being followed by his urologist, Dr Daniel Hypertension, controlled. Hyperlipidemia being treated with simvastatin, being followed by Dr Clemente. Maturity onset diabetes mellitus. Tobaccoism from which he has been advised to refrain. Moderate right internal carotid arterial disease with a diameter stenosis of approximately 40%. Moderate disease of the left common carotid with a diameter stenosis of approximately 49%. Mild left internal carotid artery disease with a diameter stenosis of 1-40% per carotid ulstrasound of 07-30-2012. Carotid u/s 08-11-14 showed mild to mod mixed bilat plaque involving both common and internal carotid arteries, without evidence of hemodynamic significance. Carotid u/s of 08/25/17: moderate bilat carotid plaque w/o evidence of hemodynamic signficance Chronic right bundle branch block. History of pulmonary nodule, which has previously been followed by Dr. Giang at [facility], we have referred him to Dr. Mulligan. This has been followed by Dr Mulligan and Dr Clemente Chronic exertional dyspnea, clinically stable. Bilateral leg claudication which currently appears well controlled. History of right common angioplasty and right common iliac artery stenting with a 9 x 25 mm iliac artery stent followed by femoral-femoral crossover bypass grafting with a 7 mm straight EPTFE graft by Dr. Giang in March 2006. A Doppler study of February 2011 indicated bilateral aorto-femoral bypass grafting with patency of the visualized distal aspect of the graft at femoral anastomosis. There was considerable distal disease reported. He does report chronic 1-2 block leg claudication symptoms, but this is unchanged Discussion and Recomendations Diuretics as needed and as tolerated Electrolyte abnormalities - replace Resume home medications including ASA d/t known h/o CAD Refuses OAC other than ASA as noted above Continue Lovenox Monitor lab closely Further recs will be based on hospital course We would like to thank Medical services for this consult Clinical Quality Measures DVT/VTE Risk/Contraindication: Risk Factor Score Per Nursin RFS Level Per Nursing on Admit: 4+=Very High Stroke: Date of last known well: Apr 30, 2019 VELASQUEZ HANNON MD FACP FACC CCDS May 09, 2019 12:38
--- NOTE | 2019-05-09 17:40 | NUR ---
PT ARRIVED TO FLOOR FROM ICU, CALL LIGHT IN REACH, CHAIR ALARM IN PLACE. WILL CONTINUE TO MONITOR
--- NOTE | 2019-05-09 17:46 | NUR ---
REPORT GIVEN TO YOUSIF GILMORE AT 1720. PT TRANSFERRED TO ROOM 427 AT 1730 VIA WHEEL CHAIR WITH BELONGINGS
[2019-05-09] MEDS ORDERED: ONDANSETRON 4 MG/2 ML (SDV) Z0FRAN IVP PRN (18:15)
[2019-05-09] MEDS ORDERED: ACETAMINOPHEN 500 MG TAB (TYLENOL) PO PRN (18:15)
[2019-05-09] MEDS ORDERED: NITROGLYCERIN 0.4 MG SL TABS BTL 25'S SL PRN (18:30)
[2019-05-09] MEDS ORDERED: morphine INJ 4 MG/ML 1 ML (VIAL/SYRINGE) IVP PRN (18:30)
[2019-05-09] MEDS ORDERED: CATHETER FLUSH 10 ML SYR IV PRN (18:30)
--- NOTE | 2019-05-09 18:44 | History & Physical ---
History of Present Illness History of Present Illness Reason for visit/HPI This is a 79 year old male who was found by EMS at his home hyporesponsive and confused with a blood sugar of 25. EMS was called after his family had not heard from him for several days and then they tried to contact him and could not reach him. The patient was given IV Dextrose by EMS and brought to the emergency room. Once aroused, the patient could not recall any events of what had happened the previous week. He was found to have an elevated troponin but denied chest pain. He has been seeing an pain management specialist in for the past several months for a retinal hemorrhage and states they have been giving him shots in his eyes. I have not seen him in my office for a routine followup in at least 9months as he stated he could not come in due to his eyes. The patient is unsure what medications he has been taking and does not test his blood sugars routinely. His HbA1C generally runs high but he has not had this check in at least a year. He is currently awake and alert with some mild confusion. Date of Admission May 08, 2019 at 20:45 Date Seen by a Provider: May 09, 2019 Time Seen by a Provider: 12:20 I consulted on this patient on 05/09/19 18:39 Attending Physician Mary Bell MD Admitting Physician Gladys Orona DO Consult Allergies and Home Medications Allergies Coded Allergies: No Known Drug Allergies (Unverified , 06/02/10) Home Medications Aspirin 81 Mg Tablet.dr, 81 MG PO DAILY, (Reported) Finasteride 5 Mg Tablet, 5 MG PO DAILY, (Reported) Glimepiride 4 Mg Tablet, 4 MG PO DAILY, (Reported) Glimepiride 4 Mg Tablet, 2 MG PO HS, (Reported) Metformin HCl 500 Mg Tab.er.24h, 500 MG PO BID, (Reported) Metoprolol Succinate 25 Mg Tab.er.24h, 25 MG PO DAILY, (Reported) Simvastatin 40 Mg Tablet, 40 MG PO HS, (Reported) Sitagliptin Phosphate 100 Mg Tablet, 100 MG PO DAILY, (Reported) Tamsulosin HCl 0.4 Mg Cap, 0.4 MG PO BID, (Reported) Patient Home Medication List Home Medication List Reviewed: Yes Past Mqeeagg-Kqfnph-Orwger Hx Past Med/Social Hx: Reviewed Nursing Past Med/Soc Hx Patient Social History Employed/Student: retired Alcohol Use: Occasionally Uses Number of Drinks Today: AA Alcohol Beverage of Choice: Beer Recreational Drug Use: No Smoking Status: Current Everyday Smoker Type Used: Cigarettes 2nd Hand Smoke Exposure: Yes Recent Foreign Travel: No Contact w/other who traveled: No Recent Hopitalizations: Yes Recent Infectious Disease Expo: No Immunizations Up To Date Tetanus Booster (TDap): Unknown Seasonal Allergies Seasonal Allergies: No Past Medical History Surgeries: Pacemaker Currently Using CPAP: No Currently Using BIPAP: No Cardiac: Atrial Fibrillation, Coronary Artery Disease, High Cholesterol, Hypertension Reproductive: No Genitourinary: Prostate Problems, UTI-Chronic Gastrointestinal: Gastroesophageal Reflux Musculoskeletal: Degenerate Disk Disease, Arthritis, Back Injury Endocrine: Diabetes, Non-Insulin dep HEENT: Cataract Hearing Impairment: Hard of Hearing History of Blood Disorders: Yes (anticoagulated for A. fib) Family History Cancer, Hypertension, Stroke Review of Systems Constitutional: weakness EENTM: No see HPI, No no symptoms reported, No ear discharge, No hearing loss, No ear pain, No blurred vision, No double vision, No eye pain, No tearing, No vision loss, No dental problems, No hoarseness, No mouth pain, No mouth swelling, No epistaxis, No nose congestion, No nose pain, No throat pain, No throat swelling, No other Respiratory: No no symptoms reported, No see HPI, No cough, No dyspnea on exertion, No hemoptysis, No orthopnea, No phlegm, No short of breath, No stridor, No wheezing, No other Cardiovascular: No no symptoms reported, No see HPI, No chest pain, No edema, No Hx of Intervention, No palpitations, No syncope, No vascular heart diseas, No other Gastrointestinal: No RUQ, No LUQ, No RLQ, No LLQ, No no symptoms reported, No see HPI, No abdominal pain, No constipation, No diarrhea, No dysphagia, No hematemesis, No heartburn, No jaundice, No loss of appetite, No melena, No nausea, No vomiting, No other Genitourinary: No no symptoms reported, No see HPI, No decreased output, No discharge, No dysuria, No frequency, No hematuria, No hesitancy, No incontinence, No nocturia, No pain, No other Musculoskeletal: muscle weakness Skin: No no symptoms reported, No see HPI, No change in color, No change in hair/nails, No dryness, No hx of skin cancer, No lesions, No lumps, No pruritus, No rash, No other Psychiatric/Neurological: Weakness Physical Exam Vital Signs Vital Signs - First Documented 05/08/19 18:49 Temp 36.9 Pulse 86 Resp 20 B/P (MAP) 195/83 (120) Pulse Ox 95 O2 Delivery Room Air Capillary Refill : Less Than 3 Seconds Height, Weight, BMI Height: 5'4.00" Weight: 171lbs. 0.0oz. [id number]; 23.81 BMI Method:Stated General Appearance: No Apparent Distress HEENT: Normal ENT Inspection Neck: Supple Respiratory: Lungs Clear Cardiovascular: Regular Rate, Rhythm, Systolic Murmur, Gallop/S4 Gastrointestinal: Normal Bowel Sounds, Non Tender, Soft Back: No CVA Tenderness Extremity: Non Tender, No Calf Tenderness, No Pedal Edema Neurologic/Psychiatric: Alert, Oriented x3 Skin: Warm/Dry Comments Laboratory Tests 05/08/19 19:00: Lactic Acid Level 1.81 05/08/19 19:05: Urine Color YELLOW, Urine Clarity CLEAR, Urine pH 7.0, Urine Specific [place] 1.025H, Urine Protein 3+H, Urine Glucose (UA) NEGATIVE, Urine Ketones 1+H, Urine Nitrite NEGATIVE, Urine Bilirubin NEGATIVE, Urine Urobilinogen 0.2, Urine Leukocyte Esterase NEGATIVE, Urine RBC (Auto) 2+H, Urine RBC 5-10H, Urine WBC 2- 5, Urine Squamous Epithelial Cells NONE, Urine Crystals NONE, Urine Bacteria TRACE, Urine Casts NONE, Urine Mucus NEGATIVE, Urine Culture Indicated NO, Urine Opiates Screen NEGATIVE, Urine Oxycodone Screen NEGATIVE, Urine Methadone Screen NEGATIVE, Urine Propoxyphene Screen NEGATIVE, Urine Barbiturates Screen NEGATIVE, Ur Tricyclic Antidepressants Screen NEGATIVE, Urine Phencyclidine Screen NEGATIVE, Urine Amphetamines Screen NEGATIVE, Urine Methamphetamines Screen NEGATIVE, Urine Benzodiazepines Screen NEGATIVE, Urine Cocaine Screen NEGATIVE, Urine Cannabinoids Screen NEGATIVE 05/08/19 19:10: Blood Gas Puncture Site RIGHT RADIAL, Blood Gas Patient Temperature 36.9, Arterial Blood pH 7.44H, Arterial Blood Partial Pressure CO2 32L, Arterial Blood Partial Pressure O2 80, Arterial Blood HCO3 22L, Arterial Blood Total CO2 22.5, Arterial Blood Oxygen Saturation 96, Arterial Blood Base Excess -2.0, Maicol Test POSITIVE, Blood Gas Ventilator Setting NO, Blood Gas Inspired Oxygen N/A 05/08/19 20:42: Glucometer 191H 05/08/19 21:33: Glucometer 158H 05/08/19 23:51: Glucometer 85 05/09/19 01:01: Troponin I 0.047H 05/09/19 03:00: White Blood Count 8.9, Red Blood Count 3.76L, Hemoglobin 11.0L, Hematocrit 34L, Mean Corpuscular Volume 91, Mean Corpuscular Hemoglobin 29, Mean Corpuscular Hemoglobin Concent 32, Red Cell Distribution Width 15.1H, Platelet Count 247, Mean Platelet Volume 11.0H, Neutrophils (%) (Auto) 73, Lymphocytes (%) (Auto) 14, Monocytes (%) (Auto) 13H, Eosinophils (%) (Auto) 1, Basophils (%) (Auto) 0, Neutrophils # (Auto) 6.5, Lymphocytes # (Auto) 1.2, Monocytes # (Auto) 1.1H, Eosinophils # (Auto) 0.1, Basophils # (Auto) 0.0, Sodium Level 137, Potassium Level 3.4L, Chloride Level 107, Carbon Dioxide Level 21, Anion Gap 9, Blood Urea Nitrogen 10, Creatinine 0.82, Estimat Glomerular Filtration Rate > 60, BUN/Creatinine Ratio 12, Glucose Level 93, Calcium Level 8.1L, Corrected Calcium 8.7, Phosphorus Level 2.3, Magnesium Level 1.5L, Total Bilirubin 0.7, Aspartate Amino Transf (AST/SGOT) 14, Alanine Aminotransferase (ALT/SGPT) 13, Alkaline Phosphatase 56, B-Type Natriuretic Peptide 448.2H, Total Protein 5.7L, Albumin 3.3, Triglycerides Level 60, Cholesterol Level 88, LDL Cholesterol Direct 32, VLDL Cholesterol 12, HDL Cholesterol 38L 05/09/19 06:55: Glucometer 106 05/09/19 07:00: Troponin I 0.046H 05/09/19 09:26: Glucometer 211H 05/09/19 12:06: Glucometer 302H 05/09/19 15:47: Glucometer 161H Microbiology 05/08/19 Influenza Types A,B Antigen (JUICE) - Final, Complete 05/08/19 Urine Culture - Preliminary, Resulted Strep Species, Alpha Hemolytic Assessment/Plan Assessment and Plan 1. Acute Hypoglycemia--improved with IV dextrose and fluids with D5 and diet, monitor accuchecks 2. Elevated Troponin I--likely Type II OK due to hypoglycemia/hypoxia with episode 3. History of Atrial Fibrillation--has refused anticoagulation in past due to history of GI bleed 4. History of TIA--resume aspirin 5. COPD with ongoing tobacco abuse--start SVNS with duoneb prn 6. Hypertension--metoprolol started 7. Weakness/Fall Risk--start PT/OT Admission Diagnosis Admission Status: Inpatient Order (span 2 midnights) Reason for Inpatient Admission: Will need IV dextrose and monitoring of BS as well as further workup of elevated troponin Clinical Quality Measures DVT/VTE Risk/Contraindication: Risk Factor Score Per Nursin RFS Level Per Nursing on Admit: 4+=Very High Stroke: Date of last known well: Apr 30, 2019 GLADYS ORONA DO May 09, 2019 18:44
[2019-05-10] VITALS (7 sets, daily range): BP systolic 138–184; BP diastolic 63–85
[2019-05-10] MEDS: 1/2 NS W/KCL 20 MEQ/L 1,000 ML IV SCH ×3 (01:25→14:49)
[2019-05-10 05:40] LABS: BASOPHILS % (AUTO) 0 % (0-10); EOSINOPHILS # (AUTO) 0.2 10^3/uL (0.0-0.3); EOSINOPHILS % (AUTO) 3 % (0-10); HEMATOCRIT 37 % (40-54); HEMOGLOBIN 11.9 G/DL (13.3-17.7); LYMPHOCYTES # (AUTO) 0.8 X 10^3 (1.0-4.0); LYMPHOCYTES % (AUTO) 11 % (12-44); MEAN CORPUSCULAR HEMOGLOBIN 30 PG (25-34); MEAN CORPUSCULAR HGB CONC 32 G/DL (32-36); MEAN CORPUSCULAR VOLUME 91 FL (80-99); MEAN PLATELET VOLUME 10.7 FL (7.4-10.4); MONOCYTES # (AUTO) 0.8 X 10^3 (0.0-1.0); MONOCYTES % (AUTO) 11 % (0-12); NEUTROPHILS # (AUTO) 5.5 X 10^3 (1.8-7.8); NEUTROPHILS % (AUTO) 75 % (42-75); PLATELET COUNT 225 10^3/uL (130-400); WHITE BLOOD COUNT 7.3 10^3/uL (4.3-11.0)
[2019-05-10] MEDS: inSUlin ASPART (NovoLOG) 1 UNIT/0.01 ML (CHARGE PER UNIT) SC SCH ×4 (05:47→21:50)
[2019-05-10] MEDS: ENOXAPARIN 40 MG/0.4 ML (LOVENOX) SYR SC SCH (05:49)
[2019-05-10 05:57] LABS: BUN/CREATININE RATIO 12; CALCIUM 8.2 MG/DL (8.5-10.1); CARBON DIOXIDE 21 MMOL/L (21-32); CHLORIDE 109 MMOL/L (98-107); CREATININE SERUM 0.82 MG/DL (0.60-1.30); GFR ESTIMATED > 60; GLUCOSE 108 MG/DL (70-105); SODIUM 138 MMOL/L (135-145)
[2019-05-10] MEDS: RT-ALBUTEROL/IPRATROPIUM 3 ML (DUONEB) VIAL INH SCH ×4 (07:35→19:18)
[2019-05-10] MEDS ORDERED: FLU QUADRIvalent (5+ YOA) 2019-2020 (AFLURIA) 0.5 ML IM ONE (07:46)
[2019-05-10] MEDS: ASPIRIN E.C. 81 MG (ECOTRIN) TAB PO SCH (08:04)
[2019-05-10] MEDS: meTOproloL SUCCINATE 50 MG (TOPROL XL) TAB PO SCH (08:04)
--- NOTE | 2019-05-10 09:36 | Occupational Ther Daily Note ---
OT Current Status-Daily Note Subjective Pt seated upright in recliner, agreeable to OT tx with focus on ADLs. He denied having any pain today. Mental Status/Objective Attachments: Rasmussen Catheter, IV ADL-Treatment Therapy Code Descriptions/Definitions Functional [place] Measure: 0=Not Assessed/NA 4=Minimal Assistance 1=Total Assistance 5=Supervision or Setup 2=Maximal Assistance 6=Modified [place] 3=Moderate Assistance 7=Complete IndependenceSCALE: Activities may be completed with or without assistive devices. 9-Mljyiwnvkq-hqjjhfj completes the activity by him/herself with no assistance from a helper. 5-Set-up or Clean-up Assistance-helper sets up or cleans up; patient completes activity. [place] assists only prior to or following the activity. 4-Supervision or Touching Assistance-helper provides verbal cues and/or touc olga/steadying and/or contact guard assistance as patient completes activity. Assistance may be provided throughout the activity or intermittently. 3-Partial/Moderate Assistance-helper does LESS THAN HALF the effort. [place] lifts, holds or supports trunk or limbs, but provides less than half the effort. 2-Substantial/Maximal Assistance-helper does MORE THAN HALF the effort. [place] lifts or holds trunk or limbs and provides more than half the effort. 1-Znziprjvt-jgendg does ALL the effort. Patient does none of the effort to complete the activity. Or, the assistance of 2 or more helpers is required for the patient to complete the activity. If activity was not attempted, code reason: 7-Patient Refused. 9-Not Applicable-not attempted and the patient did not perform the activity before the current illness, exacerbation or injury. 10-Not Attempted due to Environmental Limitations-(lack of equipment, weather restraints, etc.). 88-Not Attempted due to Medical Conditions or Safety Concerns. Oral Hygiene (QC): 5 (Pt able to complete toilet hygine with set up on tray table. He required set up and clean up assist with task.) Other Treatment Pt seated upright in recliner, OT set up for oral hygiene at tray table, pt completed task (see note above). Pt then washed his face with set up assist of wash cloth. Post OT session, pt seated in recliner, call light in reach and all needs met. He states he feels better after cleaning up a little bit. Education OT Patient Education: Correct positioning, Energy conservation, Modified ADL techniques, Progress toward Goal/Update tx plan, Purpose of tx/functional activities Teaching Recipient: Patient Teaching Methods: Discussion Response to Teaching: Verbalize Understanding OT Lean Engineer Goals Senior Living Goals Time Frame: May 20, 2019 Eating (QC): 6 Oral Hygiene (QC): 6 Toileting Hygiene (QC): 6 Shower/Bathe Self (QC): 6 Upper Body Dressing (QC): 6 Lower Body Dressing (QC): 6 On/Off Footwear (QC): 6 1=Demonstrate adherence to instructed precautions during ADL tasks. 2=Patient will verbalize/demonstrate understanding of assistive devices/modifications for ADL. 3=Patient will improve strength/tolerance for activity to enable patient to perform ADL's. OT Education/Plan Problem List/Assessment Assessment: Decreased Activ Tolerance, Decreased UE Strength, Impaired I ADL's, Impaired Self-Care Skills Discharge Recommendations Plan/Recommendations: Continue POC Treatment Plan/Plan of Care Patient would benefit from OT for education, treatment and training to promote independence in ADL's, mobility, safety and/or upper extremity function for ADL's. Plan of Care: ADL Retraining, Functional Mobility, UE Funct Exercise/Act Treatment Duration: May 20, 2019 Frequency: 5 times per week Estimated Hrs Per Day: .25 hour per day Agreement: Yes Rehab Potential: Good Time/GCodes Start Time: 09:10 Stop Time: 09:24 Total Time Billed (hr/min): 14 Billed Treatment Time 1, ADL ANGE CHRISTOPHER OT May 10, 2019 09:36
--- NOTE | 2019-05-10 09:55 | Progress Note - Cardiology ---
Cardiology SOAP Progress Note Subjective: Sitting up in a recliner at the bedside. States he feels "about the same as yesterday". No c/o CP, dyspnea or palpitations. Objective: I&O/Vital Signs 05/10/19 05/11/19 05/11/19 05/11/19 23:17 01:00 04:00 07:00 Temp 36.9 36.9 Pulse 59 68 63 72 Resp 18 18 B/P (MAP) 138/63 (88) 141/60 (87) Pulse Ox 96 92 O2 Delivery Room Air Room Air 05/11/19 05/11/19 08:00 08:54 Temp 36.2 Pulse 62 Resp 18 B/P (MAP) 172/73 (106) Pulse Ox 97 96 O2 Delivery Room Air Room Air 05/11/19 00:00 Intake Total 2020 ml Output Total 975 ml Balance 1045 ml Weight (Pounds): 171 Weight (Ounces): 0.0 Weight (Calculated Kilograms): 77.598198 Constitutional: AAO x 3, well-developed, well-nourished Respiratory: No accessory muscle use, No respiratory distress; chest expansion is symmetric, chest is bilaterally symmetric, lungs clear to auscultation Cardiovascular: regular rate-rhythm; No JVD; S1 and S2 Gastrointestional: No tender; audible bowel sounds Extremities: no lower extremity edema bilateral Neurologic/Psychiatric: grossly intact (moves all extremities) Skin: No rash on exposed areas, No ulcerations on exposed areas Results/Procedures: Labs Laboratory Tests 05/10/19 10:49: Glucometer 201H 05/10/19 16:38: Glucometer 234H 05/10/19 20:44: Glucometer 250H 05/11/19 04:14: Glucometer 97 05/11/19 05:03: White Blood Count 6.2, Red Blood Count 3.94L, Hemoglobin 11.3L, Hematocrit 36L, Mean Corpuscular Volume 90, Mean Corpuscular Hemoglobin 29, Mean Corpuscular Hemoglobin Concent 32, Red Cell Distribution Width 15.0H, Platelet Count 227, Mean Platelet Volume 10.9H, Neutrophils (%) (Auto) 67, Lymphocytes (%) (Auto) 19, Monocytes (%) (Auto) 11, Eosinophils (%) (Auto) 3, Basophils (%) (Auto) 0, Neutrophils # (Auto) 4.1, Lymphocytes # (Auto) 1.2, Monocytes # (Auto) 0.7, Eosinophils # (Auto) 0.2, Basophils # (Auto) 0.0, Sodium Level 138, Potassium Level 3.8, Chloride Level 108H, Carbon Dioxide Level 21, Anion Gap 9, Blood Urea Nitrogen 16, Creatinine 0.80, Estimat Glomerular Filtration Rate > 60, BUN/Creatinine Ratio 20, Glucose Level 99, Calcium Level 8.4L Microbiology 05/08/19 Influenza Types A,B Antigen (JUICE) - Final, Complete 05/08/19 Blood Culture - Preliminary, Resulted No growth 05/08/19 Urine Culture - Final, Complete Streptococcus mitis group Procedures NAME: KIRSTIN LEE [facility] REC#: [id number] PT STATUS: ADM Darby : 1940 PHYSICIAN: FABIAN GOMES MD ADMIT DATE: 05/08/19/ICU Signed Date of Exam:05/09/19 CHEST 1 VIEW, AP/PA ONLY INDICATION: Cardiac pacemaker, shortness of breath. COMPARISON: 05/08/2019. FINDINGS: Single view of the chest demonstrates cardiac enlargement with stable central vascular congestion. No large effusion seen. There is no pneumothorax. Pacemaker is stable. IMPRESSION: Cardiac enlargement with unchanged central vascular congestion. Dictated by: Dictated on workstation # [id number] Dict: 05/09/19 0722 Trans: 05/09/19 0956 [id number] Interpreted by: LOUISE GARCIA Electronically signed by: LOUISE GARCIA 05/09/19 0956 A/P: Assessment: Minimally elevated troponin, likely type 2 DE, likely due to hypoxia during his episode of hyporesponsiveness and hypoglycemia Acute on chronic diastolic CHF Hypoglycemia - management per medical services Electrolyte abnormalities PAF, as documented on pacemaker interrogation of 02/27/16 Pt refuses to take OAC because of a h/o GI and urinary bleeds Syncope due to intermittent advanced AV block, corrected with dual-chamber pacemaker implantation on 06/02/2010. The pacemaker is working normally per interrogation carried out on 09/01/18 Vertebrobasilar insufficiency, which has been followed by his Neurologist, Dr. Aguirre Coronary artery disease primary consisting of a chronically occluded and collateralized right coronary artery and moderate mid-vessel disease of the left anterior descending artery, unchanged on his most recent cardiac catheterization of 09/20/2008. MPI of 08/26/17 showed inferior infarction with minimal monica- infarct ischemia, basal inf hypokinesis, LVEF 63% Echo of 09/01/17: LVEF 60-65%, grade 2 perez dysfunction, mod MAC, mild MR, AoV sclerosis w/o stenosis, PASP 35-40 mmHg No aneurysm involving the mid or distal abdominal aorta u/s on 01/02/15 ([place], [place]) Symptoms of intermittent hematuria. This has been diagnosed to be prostate hypertrophy and is being followed by his urologist, Dr Daniel Hypertension, controlled. Hyperlipidemia being treated with simvastatin, being followed by Dr Clemente. Maturity onset diabetes mellitus. Tobaccoism from which he has been advised to refrain. Moderate right internal carotid arterial disease with a diameter stenosis of approximately 40%. Moderate disease of the left common carotid with a diameter stenosis of approximately 49%. Mild left internal carotid artery disease with a diameter stenosis of 1-40% per carotid ulstrasound of 07-30-2012. Carotid u/s 08-11-14 showed mild to mod mixed bilat plaque involving both common and internal carotid arteries, without evidence of hemodynamic significance. Carotid u/s of 08/25/17: moderate bilat carotid plaque w/o evidence of hemodynamic signficance Chronic right bundle branch block. History of pulmonary nodule, which has previously been followed by Dr. Giang at [facility], we have referred him to Dr. Mulligan. This has been followed by Dr Mulligan and Dr Clemente Chronic exertional dyspnea, clinically stable. Bilateral leg claudication which currently appears well controlled. History of right common angioplasty and right common iliac artery stenting with a 9 x 25 mm iliac artery stent followed by femoral-femoral crossover bypass grafting with a 7 mm straight EPTFE graft by Dr. Giang in March 2006. A Doppler study of February 2011 indicated bilateral aorto-femoral bypass grafting with patency of the visualized distal aspect of the graft at femoral anastomosis. There was considerable distal disease reported. He does report chronic 1-2 block leg claudication symptoms, but this is unchanged Plan: Diuretics as needed and as tolerated BP not well controlled - add Norvasc to regimen Refuses OAC other than ASA as noted above Continue Lovenox Monitor lab closely Clinical Quality Measures Stroke: Date of last known well: Apr 30, 2019 CRIS MCKEON May 10, 2019 09:55
[2019-05-10] MEDS ORDERED: amLODIPine 10 MG (NORVASC) TAB PO ONE (10:00)
--- NOTE | 2019-05-10 10:51 | Physical Therapy Daily Note ---
PT Daily Note-Current Subjective Agreeable. No complaints. Transfers SCALE: Activities may be completed with or without assistive devices. 2-Zplblahftv-vhtclfn completes the activity by him/herself with no assistance from a helper. 5-Set-up or Clean-up Assistance-helper sets up or cleans up; patient completes activity. [place] assists only prior to or following the activity. 4-Supervision or Touching Assistance-helper provides verbal cues and/or touching/steadying and/or contact guard assistance as patient completes activity. Assistance may be provided throughout the activity or intermittently. 3-Partial/Moderate Assistance-helper does LESS THAN HALF the effort. [place] lifts, holds or supports trunk or limbs, but provides less than half the effort. 2-Substantial/Maximal Assistance-helper does MORE THAN HALF the effort. [place] lifts or holds trunk or limbs and provides more than half the effort. 0-Ycipbnajc-vkrvfv does ALL the effort. Patient does none of the effort to complete the activity. Or, the assistance of 2 or more helpers is required for the patient to complete the activity. If activity was not attempted, code reason: 7-Patient Refused. 9-Not Applicable-not attempted and the patient did not perform the activity before the current illness, exacerbation or injury. 10-Not Attempted due to Environmental Limitations-(lack of equipment, weather restraints, etc.). 88-Not Attempted due to Medical Conditions or Safety Concerns. Weight Bearing Right Lower Extremity: Right Weight Bearing/Tolerated Left Lower Extremity: Left Weight Bearing/Tolerated Treatments Sit to stand with SBA. Pt ambulated x 250 ft with FWW with SBA with intermittent cues for safety. Assessment Current Status: Good Progress Improved transfer and gait tolerance this date. Pt progressing well. PT Halfway Goals Job Development Specialist Goals PT Job Development Specialist Goals Time Frame: May 16, 2019 Roll Left & Right (QC): 6 Sit to Lying (QC): 6 Lying-Sitting on Side/Bed(QC): 6 Sit to Stand (QC): 6 Chair/Nlt-sz-Rklan Xfer(QC): 6 Walk 150 ft (QC): 6 PT Plan Problem List Problem List: Activity Tolerance, Functional Strength, Safety Treatment/Plan Treatment Plan: Continue Plan of Care Treatment Plan: Bed Mobility, Education, Functional Activity K[place], Functional Strength, Gait, Safety, Therapeutic Exercise, Transfers Treatment Duration: May 16, 2019 Frequency: 5 times per week Estimated Hrs Per Day: .25 hour per day Safety Risks/Education Patient Education: Safety Issues Teaching Recipient: Patient Teaching Methods: Discussion Response to Teaching: Reinforcement Needed Discharge Recommendations Therapy Discharge Recommendati: Post Acute PT Time/GCodes Time In: 1010 Time Out: 1024 Total Billed Treatment Time: 14 Total Billed Treatment visit GT 14 HANNAH DUARTE PT May 10, 2019 10:51
--- NOTE | 2019-05-10 14:29 | NUR ---
CM/SS visited with the patient for social service consult. CM/SS will send a referral for skilled placement to [facility]. Medical equipment: The patient has 2 walkers and a cane. it is unknown who the medical equipment company is due to the patient not being able to remember. Summary: The patient was visiting with his brother Jonathon. The patient has a tray of food sitting in front of him but he didn't have much of an appetite. He states that he does like drinking the Ensure and plans to continue drinking them to help keep his blood sugars up. The patient feels that he is doing alright at home but has thought about getting extra assistance. Upon further discussion the patient opened up about being willing to go skilled to a facility. The patients brother Jonathon wanted to talk to this SS outside of the room and stated the patients home is very dirty and unkept. He has to help his brother with most things since he cannot drive. CM/SS gave the patient a Patient Preference Form and he stated he would like this SS to send a referral over.
--- NOTE | 2019-05-10 17:01 | Progress Note - Cardiology ---
Cardiology SOAP Progress Note Subjective: He does not report cp or palp or syncope or shortness of breath Has some weakness and malaise Denies n/v/d Objective: I&O/Vital Signs 05/10/19 05/10/19 05/10/19 05/10/19 07:00 08:00 09:00 11:31 Temp 36.1 Pulse 60 65 Resp 18 B/P (MAP) 180/85 (116) Pulse Ox 94 94 95 O2 Delivery Room Air Room Air Room Air 05/10/19 05/10/19 05/10/19 12:00 13:00 16:11 Temp 36.2 Pulse 65 66 Resp 18 B/P (MAP) 182/72 (108) Pulse Ox 98 94 O2 Delivery Room Air Room Air 05/10/19 00:00 Intake Total 1840 ml Output Total 1575 ml Balance 265 ml Weight (Pounds): 171 Weight (Ounces): 0.0 Weight (Calculated Kilograms): 77.538296 Constitutional: AAO x 3 (appears mildly confused at times), well-developed, well-nourished Respiratory: No accessory muscle use, No respiratory distress; chest expansion is symmetric, chest is bilaterally symmetric, lungs clear to auscultation Cardiovascular: regular rate-rhythm; No JVD; S1 and S2 Gastrointestional: No tender; audible bowel sounds Extremities: no lower extremity edema bilateral Neurologic/Psychiatric: other (moves all limbs equally) Skin: No rash on exposed areas, No ulcerations on exposed areas Results/Procedures: Labs Laboratory Tests 05/09/19 20:48: Glucometer 125H 05/10/19 05:28: Glucometer 102, White Blood Count 7.3, Red Blood Count 4.04L, Hemoglobin 11.9L, Hematocrit 37L, Mean Corpuscular Volume 91, Mean Corpuscular Hemoglobin 30, Mean Corpuscular Hemoglobin Concent 32, Red Cell Distribution Width 15.0H, Platelet Count 225, Mean Platelet Volume 10.7H, Neutrophils (%) (Auto) 75, Lymphocytes (%) (Auto) 11L, Monocytes (%) (Auto) 11, Eosinophils (%) (Auto) 3, Basophils (%) (Auto) 0, Neutrophils # (Auto) 5.5, Lymphocytes # (Auto) 0.8L, Monocytes # (Auto) 0.8, Eosinophils # (Auto) 0.2, Basophils # (Auto) 0.0, Sodium Level 138, Potassium Level 4.0, Chloride Level 109H, Carbon Dioxide Level 21, Anion Gap 8, Blood Urea Nitrogen 10, Creatinine 0.82, Estimat Glomerular Filtration Rate > 60, BUN/Creatinine Ratio 12, Glucose Level 108H, Calcium Level 8.2L 05/10/19 10:49: Glucometer 201H 05/10/19 16:38: Glucometer 234H Microbiology 05/08/19 Influenza Types A,B Antigen (JUICE) - Final, Complete 05/08/19 Blood Culture - Preliminary, Resulted No growth 05/08/19 Urine Culture - Final, Complete Streptococcus mitis group Laboratory Tests 05/08/19 18:51 05/09/19 03:00 05/10/19 05:28 A/P: Assessment: Poorly controlled hypertension Minimally elevated troponin, likely type 2 DC, likely due to hypoxia during his episode of hyporesponsiveness and hypoglycemia Acute on chronic diastolic CHF Hypoglycemia - management per medical services PAF, as documented on pacemaker interrogation of 02/27/16. Pt refuses to take OAC because of a h/o GI and urinary bleeds Syncope due to intermittent advanced AV block, corrected with dual-chamber pacemaker implantation on 06/02/2010. The pacemaker is working normally per interrogation carried out on 09/01/18 Vertebrobasilar insufficiency, which has been followed by his neurologist Coronary artery disease primary consisting of a chronically occluded and co llateralized right coronary artery and moderate mid-vessel disease of the left anterior descending artery, unchanged on his most recent cardiac catheterization of 09/20/2008. MPI of 08/26/17 showed inferior infarction with minimal monica- infarct ischemia, basal inf hypokinesis, LVEF 63% Echo of 09/01/17: LVEF 60-65%, grade 2 perez dysfunction, mod MAC, mild MR, AoV sclerosis w/o stenosis, PASP 35-40 mmHg No aneurysm involving the mid or distal abdominal aorta u/s on 01/02/15 ([facility], [place], [place]) Symptoms of intermittent hematuria. This has been diagnosed to be prostate hypertrophy and is being followed by his urologist, Dr Daniel Hyperlipidemia being treated with simvastatin, being followed by Dr Clemente. Maturity onset diabetes mellitus. Tobaccoism from which he has been advised to refrain. Carotid u/s of 08/25/17: moderate bilat carotid plaque w/o evidence of hemodynamic signficance Chronic right bundle branch block. History of pulmonary nodule. This has been followed by Dr Mulligan and Dr Clemente Bilateral leg claudication which currently appears well controlled. History of right common angioplasty and right common iliac artery stenting with a 9 x 25 mm iliac artery stent followed by femoral-femoral crossover bypass grafting with a 7 mm straight EPTFE graft by Dr. Giang in March 2006. A Doppler study of February 2011 indicated bilateral aorto-femoral bypass grafting with patency of the visualized distal aspect of the graft at femoral anastomosis. There was considerable distal disease reported. He does report chronic 1-2 block leg claudication symptoms, but this is unchanged Plan: Diuretics as needed and as tolerated BP not well controlled - add Norvasc to regimen Refuses OAC other than ASA as noted above Continue Lovenox Monitor lab closely Clinical Quality Measures Stroke: Date of last known well: Apr 30, 2019 VELASQUEZ HANNON MD FACP FACC CCDS May 10, 2019 17:01
[2019-05-10] MEDS: TAMSULOSIN 0.4 MG (FLOMAX) CAP PO SCH (17:28)
--- NOTE | 2019-05-10 18:50 | Progress Note ---
Subjective Date Seen by a Provider: May 10, 2019 Time Seen by a Provider: 12:20 Subjective/Events-last exam Fwup hypoglycemia, Type II SC, COPD, weakness, worsening debility. Patient more alert but still confused today. Focused Exam Lactate Level 05/08/19 19:00: Lactic Acid Level 1.81 Objective Exam Vital Signs Date Time Temp Pulse Resp B/P (MAP) Pulse Ox O2 Delivery O2 Flow Rate FiO2 05/10/19 16:11 94 Room Air 05/10/19 15:33 36.9 60 18 152/70 (97) 98 Room Air 05/10/19 13:00 66 05/10/19 12:00 36.2 65 18 182/72 (108) 98 Room Air 05/10/19 11:31 95 Room Air 05/10/19 09:00 94 Room Air 05/10/19 08:00 36.1 65 18 180/85 (116) 94 Room Air 05/10/19 07:00 60 05/10/19 03:50 36.6 68 18 172/79 (110) 96 Room Air 05/10/19 01:22 60 05/10/19 00:00 36.3 68 16 184/83 (116) 97 Room Air 05/09/19 20:30 Room Air 05/09/19 20:00 Room Air 05/09/19 19:05 36.8 61 20 178/78 (111) 98 Room Air 05/09/19 18:49 60 05/09/19 18:41 97 Room Air I & O 05/10/19 07:00 Intake Total 2390 ml Output Total 1925 ml Balance 465 ml Capillary Refill : Less Than 3 SecondsLess Than 3 Seconds General Appearance: No Apparent Distress Neck: Supple Respiratory: Lungs Clear, Decreased Breath Sounds Gastrointestinal: normal bowel sounds, non tender, soft Extremity: Non Tender, No Calf Tenderness, No Pedal Edema Neurologic/Psychiatric: Alert, Oriented x3 Skin: Warm/Dry Results Lab Laboratory Tests 05/09/19 20:48: Glucometer 125H 05/10/19 05:28: Glucometer 102, White Blood Count 7.3, Red Blood Count 4.04L, Hemoglobin 11.9L, Hematocrit 37L, Mean Corpuscular Volume 91, Mean Corpuscular Hemoglobin 30, Mean Corpuscular Hemoglobin Concent 32, Red Cell Distribution Width 15.0H, Platelet Count 225, Mean Platelet Volume 10.7H, Neutrophils (%) (Auto) 75, Lymphocytes (%) (Auto) 11L, Monocytes (%) (Auto) 11, Eosinophils (%) (Auto) 3, Basophils (%) (Auto) 0, Neutrophils # (Auto) 5.5, Lymphocytes # (Auto) 0.8L, Monocytes # (Auto) 0.8, Eosinophils # (Auto) 0.2, Basophils # (Auto) 0.0, Sodium Level 138, Potassium Level 4.0, Chloride Level 109H, Carbon Dioxide Level 21, Anion Gap 8, Blood Urea Nitrogen 10, Creatinine 0.82, Estimat Glomerular Filtration Rate > 60, BUN/Creatinine Ratio 12, Glucose Level 108H, Calcium Level 8.2L 05/10/19 10:49: Glucometer 201H 05/10/19 16:38: Glucometer 234H Microbiology 05/08/19 Influenza Types A,B Antigen (JUICE) - Final, Complete 05/08/19 Blood Culture - Preliminary, Resulted No growth 05/08/19 Urine Culture - Final, Complete Streptococcus mitis group Assessment/Plan Assessment/Plan Assess & Plan/Chief Complaint 1. Hypoglycemia--resolved, decrease IVF rate and continue to monitor BS 2. Type II SC--medical management 3. COPD--Stable 4. Weakness/Falls/Worsening Debility--will need SNF for discharge Clinical Quality Measures Admission Status Admission Dx 1. Acute Hypoglycemia--improved with IV dextrose and fluids with D5 and diet, monitor accuchecks 2. Elevated Troponin I--likely Type II SC due to hypoglycemia/hypoxia with episode 3. History of Atrial Fibrillation--has refused anticoagulation in past due to history of GI bleed 4. History of TIA--resume aspirin 5. COPD with ongoing tobacco abuse--start SVNS with duoneb prn 6. Hypertension--metoprolol started 7. Weakness/Fall Risk--start PT/OT DVT/VTE Risk/Contraindication: Risk Factor Score Per Nursin RFS Level Per Nursing on Admit: 4+=Very High Stroke: Date of last known well: Apr 30, 2019 GLADYS ORONA DO May 10, 2019 18:50
[2019-05-11 04:00] VITALS: BP 141/60
[2019-05-11] MEDS: inSUlin ASPART (NovoLOG) 1 UNIT/0.01 ML (CHARGE PER UNIT) SC SCH ×4 (05:01→20:15)
[2019-05-11] MEDS: ENOXAPARIN 40 MG/0.4 ML (LOVENOX) SYR SC SCH (05:14)
[2019-05-11 05:41] LABS: BASOPHILS % (AUTO) 0 % (0-10); EOSINOPHILS # (AUTO) 0.2 10^3/uL (0.0-0.3); EOSINOPHILS % (AUTO) 3 % (0-10); HEMATOCRIT 36 % (40-54); HEMOGLOBIN 11.3 G/DL (13.3-17.7); LYMPHOCYTES # (AUTO) 1.2 X 10^3 (1.0-4.0); LYMPHOCYTES % (AUTO) 19 % (12-44); MEAN CORPUSCULAR HEMOGLOBIN 29 PG (25-34); MEAN CORPUSCULAR HGB CONC 32 G/DL (32-36); MEAN CORPUSCULAR VOLUME 90 FL (80-99); MEAN PLATELET VOLUME 10.9 FL (7.4-10.4); MONOCYTES # (AUTO) 0.7 X 10^3 (0.0-1.0); MONOCYTES % (AUTO) 11 % (0-12); NEUTROPHILS # (AUTO) 4.1 X 10^3 (1.8-7.8); NEUTROPHILS % (AUTO) 67 % (42-75); PLATELET COUNT 227 10^3/uL (130-400); WHITE BLOOD COUNT 6.2 10^3/uL (4.3-11.0)
[2019-05-11 05:55] LABS: BUN/CREATININE RATIO 20; CALCIUM 8.4 MG/DL (8.5-10.1); CARBON DIOXIDE 21 MMOL/L (21-32); CHLORIDE 108 MMOL/L (98-107); GFR ESTIMATED > 60; GLUCOSE 99 MG/DL (70-105); POTASSIUM 3.8 MMOL/L (3.6-5.0); SODIUM 138 MMOL/L (135-145)
[2019-05-11] MEDS: 1/2 NS W/KCL 20 MEQ/L 1,000 ML IV SCH ×3 (06:44→17:40)
[2019-05-11] MEDS: ASPIRIN E.C. 81 MG (ECOTRIN) TAB PO SCH (07:43)
[2019-05-11] MEDS: meTOproloL SUCCINATE 50 MG (TOPROL XL) TAB PO SCH (07:43)
[2019-05-11] MEDS: amLODIPine 10 MG (NORVASC) TAB PO SCH (07:43)
[2019-05-11 08:00] VITALS: BP 172/73
[2019-05-11] MEDS: RT-ALBUTEROL/IPRATROPIUM 3 ML (DUONEB) VIAL INH SCH ×3 (08:52→15:48)
--- NOTE | 2019-05-11 09:36 | Physical Therapy Daily Note ---
PT Daily Note-Current Subjective Pt up in chair upon arrival. Pt denies pain, says "I think I am doing okay today." Pt agreeable to treatment. Mental Status Patient Orientation: Person, Place, Situation Transfers SCALE: Activities may be completed with or without assistive devices. 0-Efbuvgibwq-ivqrker completes the activity by him/herself with no assistance from a helper. 5-Set-up or Clean-up Assistance-helper sets up or cleans up; patient completes activity. [place] assists only prior to or following the activity. 4-Supervision or Touching Assistance-helper provides verbal cues and/or touching/steadying and/or contact guard assistance as patient completes activity. Assistance may be provided throughout the activity or intermittently. 3-Partial/Moderate Assistance-helper does LESS THAN HALF the effort. [place] lifts, holds or supports trunk or limbs, but provides less than half the effort. 2-Substantial/Maximal Assistance-helper does MORE THAN HALF the effort. [place] lifts or holds trunk or limbs and provides more than half the effort. 7-Mzmowovjg-vjbzmi does ALL the effort. Patient does none of the effort to complete the activity. Or, the assistance of 2 or more helpers is required for the patient to complete the activity. If activity was not attempted, code reason: 7-Patient Refused. 9-Not Applicable-not attempted and the patient did not perform the activity before the current illness, exacerbation or injury. 10-Not Attempted due to Environmental Limitations-(lack of equipment, weather restraints, etc.). 88-Not Attempted due to Medical Conditions or Safety Concerns. Weight Bearing Right Lower Extremity: Right Weight Bearing/Tolerated Left Lower Extremity: Left Weight Bearing/Tolerated Exercises Seated Reps: 15 Treatments Pt in chair upon arrival. Pt performed seated toe tap, march and LAQ x 15 each. Pt transfers from chair sit-stand SBA. Pt amb with FWW and F/u of IV pole, SBA x 500(+)ft at slow steady speed. Pt back to chair with ambu alarm activated. Respiratory therapist present, O2 sat 96%. Assessment Current Status: Good Progress Pt rubi well, no complaint of discomfort or fatigue. Pt showed good balance with FWW, good endurance. Pt in care of RT post therapy. Pt in chair with ambu alarm activated and call light in reach. PT Longterm Goals Longterm Goals PT Longterm Goals Time Frame: May 16, 2019 Roll Left & Right (QC): 6 Sit to Lying (QC): 6 Lying-Sitting on Side/Bed(QC): 6 Sit to Stand (QC): 6 Chair/Okj-pk-Mnvkj Xfer(QC): 6 Walk 150 ft (QC): 6 PT Plan Treatment/Plan Treatment Plan: Continue Plan of Care Treatment Plan: Bed Mobility, Education, Functional Activity K[place], Functional Strength, Gait, Safety, Therapeutic Exercise, Transfers Treatment Duration: May 16, 2019 Frequency: 5 times per week Estimated Hrs Per Day: .25 hour per day Time/GCodes Time In: 830 Time Out: 855 Total Billed Treatment Time: 25 Total Billed Treatment 1, ther ex 10', gait 15' [facility] May 11, 2019 09:36
--- NOTE | 2019-05-11 09:41 | Progress Note - Cardiology ---
Cardiology SOAP Progress Note Subjective: Sitting up in recliner at the bedside. States he feels good this morning. No c/o CP, palpitations, dyspnea, syncope or near syncope Objective: I&O/Vital Signs 05/11/19 05/11/19 05/12/19 05/12/19 19:45 20:23 00:10 04:15 Temp 36.7 37.4 37.5 Pulse 60 64 70 Resp 17 20 18 B/P (MAP) 160/72 (101) 143/65 (91) 128/66 (86) Pulse Ox 98 94 97 O2 Delivery Room Air Room Air Room Air Room Air 05/12/19 05/12/19 05:00 07:00 Pulse 79 77 05/12/19 00:00 Intake Total 1430 ml Balance 1430 ml Weight (Pounds): 171 Weight (Ounces): 0.0 Weight (Calculated Kilograms): 77.058055 Constitutional: AAO x 3 (appears mildly confused at times), well-developed, well-nourished Respiratory: No accessory muscle use, No respiratory distress; chest expansion is symmetric, chest is bilaterally symmetric, lungs clear to auscultation Cardiovascular: regular rate-rhythm; No JVD; S1 and S2 Gastrointestional: No tender; audible bowel sounds Extremities: no lower extremity edema bilateral Neurologic/Psychiatric: other (moves all limbs equally) Skin: No rash on exposed areas, No ulcerations on exposed areas Results/Procedures: Labs Laboratory Tests 05/11/19 10:36: Glucometer 318H 05/11/19 16:00: Glucometer 137H 05/11/19 20:03: Glucometer 254H 05/12/19 04:43: White Blood Count 6.9, Red Blood Count 3.80L, Hemoglobin 11.2L, Hematocrit 35L, Mean Corpuscular Volume 91, Mean Corpuscular Hemoglobin 30, Mean Corpuscular Hemoglobin Concent 33, Red Cell Distribution Width 15.0H, Platelet Count 229, Mean Platelet Volume 11.0H, Neutrophils (%) (Auto) 73, Lymphocytes (%) (Auto) 15, Monocytes (%) (Auto) 10, Eosinophils (%) (Auto) 2, Basophils (%) (Auto) 0, Neutrophils # (Auto) 5.0, Lymphocytes # (Auto) 1.0, Monocytes # (Auto) 0.7, Eosinophils # (Auto) 0.2, Basophils # (Auto) 0.0, Sodium Level 136, Potassium Level 4.4, Chloride Level 106, Carbon Dioxide Level 22, Anion Gap 8, Blood Urea Nitrogen 24H, Creatinine 0.98, Estimat Glomerular Filtration Rate > 60, BUN/Creatinine Ratio 24, Glucose Level 109H, Calcium Level 8.4L 05/12/19 05:27: Glucometer 115H Microbiology 05/08/19 Influenza Types A,B Antigen (JUICE) - Final, Complete 05/08/19 Blood Culture - Preliminary, Resulted No growth 05/08/19 Urine Culture - Final, Complete Streptococcus mitis group A/P: Assessment: Poorly controlled hypertension Minimally elevated troponin, likely type 2 OR, likely due to hypoxia during his episode of hyporesponsiveness and hypoglycemia Acute on chronic diastolic CHF Hypoglycemia - management per medical services PAF, as documented on pacemaker interrogation of 02/27/16. Pt refuses to take OAC because of a h/o GI and urinary bleeds Syncope due to intermittent advanced AV block, corrected with dual-chamber pacemaker implantation on 06/02/2010. The pacemaker is working normally per interrogation carried out on 09/01/18 Vertebrobasilar insufficiency, which has been followed by his neurologist Coronary artery disease primary consisting of a chronically occluded and collateralized right coronary artery and moderate mid-vessel disease of the left anterior descending artery, unchanged on his most recent cardiac catheterization of 09/20/2008. MPI of 08/26/17 showed inferior infarction with minimal monica- infarct ischemia, basal inf hypokinesis, LVEF 63% Echo of 09/01/17: LVEF 60-65%, grade 2 perez dysfunction, mod MAC, mild MR, AoV sclerosis w/o stenosis, PASP 35-40 mmHg No aneurysm involving the mid or distal abdominal aorta u/s on 01/02/15 ([facility], [place], [place]) Symptoms of intermittent hematuria. This has been diagnosed to be prostate hypertrophy and is being followed by his urologist, Dr Daniel Hyperlipidemia being treated with simvastatin, being followed by Dr Clemente. Maturity onset diabetes mellitus. Tobaccoism from which he has been advised to refrain. Carotid u/s of 08/25/17: moderate bilat carotid plaque w/o evidence of hemodynamic signficance Chronic right bundle branch block. History of pulmonary nodule. This has been followed by Dr Mulligan and Dr Clemente Bilateral leg claudication which currently appears well controlled. History of right common angioplasty and right common iliac artery stenting with a 9 x 25 mm iliac artery stent followed by femoral-femoral crossover bypass grafting with a 7 mm straight EPTFE graft by Dr. Giang in March 2006. A Doppler study of February 2011 indicated bilateral aorto-femoral bypass grafting with patency of the visualized distal aspect of the graft at femoral anastomosis. There was considerable distal disease reported. He does report chronic 1-2 block leg claudication symptoms, but this is unchanged Plan: BP not well controlled - will augment antihypertensive regimen Refuses OAC other than ASA as noted above Monitor lab Replace electrolytes as indicated Clinical Quality Measures Stroke: Date of last known well: Apr 30, 2019 CRIS MCKEON May 11, 2019 09:41
[2019-05-11] MEDS ORDERED: lisINopril 10 MG (PRINIVIL) TABLET PO NR (09:45)
[2019-05-11] MEDS ORDERED: hydrALAZINE (APRESOLINE) 25 MG TAB PO PRN (10:15)
--- NOTE | 2019-05-11 11:28 | Occupational Ther Daily Note ---
OT Current Status-Daily Note Subjective Pt agreeable to OT tx this AM with focus on UE exercises. He did not report any pain, saying he feels pretty good today. Mental Status/Objective Attachments: IV ADL-Treatment Therapy Code Descriptions/Definitions Functional [place] Measure: 0=Not Assessed/NA 4=Minimal Assistance 1=Total Assistance 5=Supervision or Setup 2=Maximal Assistance 6=Modified [place] 3=Moderate Assistance 7=Complete IndependenceSCALE: Activities may be completed with or without assistive devices. 6-Oepgqqmtng-rnmabhu completes the activity by him/herself with no assistance from a helper. 5-Set-up or Clean-up Assistance-helper sets up or cleans up; patient completes activity. [place] assists only prior to or following the activity. 4-Supervision or Touching Assistance-helper provides verbal cues and/or to uching/steadying and/or contact guard assistance as patient completes activity. Assistance may be provided throughout the activity or intermittently. 3-Partial/Moderate Assistance-helper does LESS THAN HALF the effort. [place] lifts, holds or supports trunk or limbs, but provides less than half the effort. 2-Substantial/Maximal Assistance-helper does MORE THAN HALF the effort. [place] lifts or holds trunk or limbs and provides more than half the effort. 4-Tsnpuhahf-sgfbxu does ALL the effort. Patient does none of the effort to complete the activity. Or, the assistance of 2 or more helpers is required for the patient to complete the activity. If activity was not attempted, code reason: 7-Patient Refused. 9-Not Applicable-not attempted and the patient did not perform the activity before the current illness, exacerbation or injury. 10-Not Attempted due to Environmental Limitations-(lack of equipment, weather restraints, etc.). 88-Not Attempted due to Medical Conditions or Safety Concerns. Other Treatment Pt seated upright in recliner at start of session. He completed x15 reps each of the following BUE exercises: wrist flexion/extension, elbow flexion/extension, and shoulder flexion/extension. OT educated pt on the purpose and benefits of completing exercises multiple times throughout the day, he verbalized understanding. OT reminded pt to use the call light if he needed anything and to not get up by himself. Pt indicated he thought he should be able to get up alone. OT educated pt on increased risk for falls, pt verbalized understanding and agreed to using the call light and not getting up by himself. Post OT session, pt seated in recliner, call light in reach and all needs met with chair alarm on. Education OT Patient Education: Correct positioning, Energy conservation, Exercise program, Progress toward Goal/Update tx plan, Purpose of tx/functional activities Teaching Recipient: Patient Teaching Methods: Demonstration, Discussion Response to Teaching: Verbalize Understanding, Return Demonstration, Reinforcement Needed OT Halfway Goals Restaurant Area Manager Goals Time Frame: May 20, 2019 Eating (QC): 6 Oral Hygiene (QC): 6 Toileting Hygiene (QC): 6 Shower/Bathe Self (QC): 6 Upper Body Dressing (QC): 6 Lower Body Dressing (QC): 6 On/Off Footwear (QC): 6 1=Demonstrate adherence to instructed precautions during ADL tasks. 2=Patient will verbalize/demonstrate understanding of assistive devices/modifications for ADL. 3=Patient will improve strength/tolerance for activity to enable patient to perform ADL's. OT Education/Plan Problem List/Assessment Assessment: Decreased Activ Tolerance, Decreased UE Strength, Impaired I ADL's, Impaired Self-Care Skills Discharge Recommendations Plan/Recommendations: Continue POC Treatment Plan/Plan of Care Patient would benefit from OT for education, treatment and training to promote independence in ADL's, mobility, safety and/or upper extremity function for ADL's. Plan of Care: ADL Retraining, Functional Mobility, UE Funct Exercise/Act Treatment Duration: May 20, 2019 Frequency: 5 times per week Estimated Hrs Per Day: .25 hour per day Agreement: Yes Rehab Potential: Good Time/GCodes Start Time: 11:00 Stop Time: 11:09 Total Time Billed (hr/min): 9 Billed Treatment Time 1, EX ANGE CHRISTOPHER OT May 11, 2019 11:27
--- NOTE | 2019-05-11 11:41 | NUR ---
CM/SS follow up for discharge plan. A referral was sent to [facility] yesterday 02/07. CM/SS called [facility] today and Veronica stated she wouldn't have a bed open until possibly next week. CM/SS informed the client and had a lengthily discussion in regards to the benefits of long-term home vs. going home with limited help. The patient verbalized understanding and stated he agreed with plan and does "want to get stronger". The patient is still willing to go to a facility but is deciding if he wants it to be closer to [place] for his brother or stay in [place] close to home. His brother is anticipated to visit around 12-1 p.m. today 05/11. CM/SS told the patient that this SS will be back to make a plan with both of them present.
[2019-05-11 12:00] VITALS: BP 156/70
--- NOTE | 2019-05-11 13:07 | Progress Note - Cardiology ---
Cardiology SOAP Progress Note Subjective: No cp or palp or syncope Gen malaise and weakness and tiredness still present No n/v/d Objective: I&O/Vital Signs 05/11/19 05/11/19 05/11/19 05/11/19 04:00 07:00 08:00 08:54 Temp 36.9 36.2 Pulse 63 72 62 Resp 18 18 B/P (MAP) 141/60 (87) 172/73 (106) Pulse Ox 92 97 96 O2 Delivery Room Air Room Air Room Air 05/11/19 05/11/19 05/11/19 05/11/19 09:00 11:50 12:00 12:17 Temp 36.2 Pulse 62 61 Resp 18 B/P (MAP) 156/70 (98) Pulse Ox 96 95 98 O2 Delivery Room Air Room Air Room Air 05/10/19 23:59 Intake Total 2020 ml Output Total 975 ml Balance 1045 ml Weight (Pounds): 171 Weight (Ounces): 0.0 Weight (Calculated Kilograms): 77.748421 Constitutional: AAO x 3 (appears mildly confused at times), well-developed, well-nourished Respiratory: No accessory muscle use, No respiratory distress; chest expansion is symmetric, chest is bilaterally symmetric, lungs clear to auscultation Cardiovascular: regular rate-rhythm; No JVD; S1 and S2 Gastrointestional: No tender; audible bowel sounds Extremities: no lower extremity edema bilateral Neurologic/Psychiatric: other (moves all limbs equally) Skin: No rash on exposed areas, No ulcerations on exposed areas Results/Procedures: Labs Laboratory Tests 05/10/19 16:38: Glucometer 234H 05/10/19 20:44: Glucometer 250H 05/11/19 04:14: Glucometer 97 05/11/19 05:03: White Blood Count 6.2, Red Blood Count 3.94L, Hemoglobin 11.3L, Hematocrit 36L, Mean Corpuscular Volume 90, Mean Corpuscular Hemoglobin 29, Mean Corpuscular Hemoglobin Concent 32, Red Cell Distribution Width 15.0H, Platelet Count 227, Mean Platelet Volume 10.9H, Neutrophils (%) (Auto) 67, Lymphocytes (%) (Auto) 19, Monocytes (%) (Auto) 11, Eosinophils (%) (Auto) 3, Basophils (%) (Auto) 0, Neutrophils # (Auto) 4.1, Lymphocytes # (Auto) 1.2, Monocytes # (Auto) 0.7, Eosinophils # (Auto) 0.2, Basophils # (Auto) 0.0, Sodium Level 138, Potassium Level 3.8, Chloride Level 108H, Carbon Dioxide Level 21, Anion Gap 9, Blood Urea Nitrogen 16, Creatinine 0.80, Estimat Glomerular Filtration Rate > 60, BUN/Creatinine Ratio 20, Glucose Level 99, Calcium Level 8.4L 05/11/19 10:36: Glucometer 318H Microbiology 05/08/19 Influenza Types A,B Antigen (JUICE) - Final, Complete 05/08/19 Blood Culture - Preliminary, Resulted No growth 05/08/19 Urine Culture - Final, Complete Streptococcus mitis group Laboratory Tests 05/10/19 05:28 05/11/19 05:03 A/P: Assessment: Poorly controlled hypertension Minimally elevated troponin, likely type 2 NV, likely due to hypoxia during his episode of hyporesponsiveness and hypoglycemia Acute on chronic diastolic CHF Hypoglycemia - management per medical services PAF, as documented on pacemaker interrogation of 02/27/16. Pt refuses to take OAC because of a h/o GI and urinary bleeds Syncope due to intermittent advanced AV block, corrected with dual-chamber pacemaker implantation on 06/02/2010. The pacemaker is working normally per interrogation carried out on 09/01/18 Vertebrobasilar insufficiency, which has been followed by his neurologist Coronary artery disease primary consisting of a chronically occluded and collateralized right coronary artery and moderate mid-vessel disease of the left anterior descending artery, unchanged on his most recent cardiac catheterization of 09/20/2008. MPI of 08/26/17 showed inferior infarction with minimal monica- infarct ischemia, basal inf hypokinesis, LVEF 63% Echo of 09/01/17: LVEF 60-65%, grade 2 perez dysfunction, mod MAC, mild MR, AoV sclerosis w/o stenosis, PASP 35-40 mmHg No aneurysm involving the mid or distal abdominal aorta u/s on 01/02/15 ([facility], [place], [place]) Symptoms of intermittent hematuria. This has been diagnosed to be prostate hypertrophy and is being followed by his urologist, Dr Daniel Hyperlipidemia being treated with simvastatin, being followed by Dr Clemente. Maturity onset diabetes mellitus. Tobaccoism from which he has been advised to refrain. Carotid u/s of 08/25/17: moderate bilat carotid plaque w/o evidence of hemodynamic signficance Chronic right bundle branch block. History of pulmonary nodule. This has been followed by Dr Mulligan and Dr Clemente Bilateral leg claudication which currently appears well controlled. History of right common angioplasty and right common iliac artery stenting with a 9 x 25 mm iliac artery stent followed by femoral-femoral crossover bypass grafting with a 7 mm straight EPTFE graft by Dr. Giang in March 2006. A Doppler study of February 2011 indicated bilateral aorto-femoral bypass grafting with patency of the visualized distal aspect of the graft at femoral anastomosis. There was considerable distal disease reported. He does report chronic 1-2 block leg claudication symptoms, but this is unchanged Plan: BP not well controlled - will augment antihypertensive regimen Refuses OAC other than ASA as noted above Monitor lab Replace electrolytes as indicated I spoke with him and answered CV-related questions Clinical Quality Measures Stroke: Date of last known well: Apr 30, 2019 VELASQUEZ HANNON MD FACP FAC CCDS May 11, 2019 13:07
--- NOTE | 2019-05-11 15:16 | NUR ---
TIM/SS visited with patient and his brother. CM/SS spoke to the patients brother Jonathon on the phone prior to him arriving at the hospital to inform his of what the plan is. He verbalized understanding. The patient and his brother were provided the Patient Preference Form. The patient and his brother visited and discussed if he wanted to be in [place] or [place]. They decided on [place]. CM/SS called and spoke with Julita from [facility] and she verbalized they have beens available. Cm/SS faxed a referral over to the facility for skilled placement.
[2019-05-11 16:00] VITALS: BP 151/66
[2019-05-11] MEDS: TAMSULOSIN 0.4 MG (FLOMAX) CAP PO SCH (17:35)
[2019-05-11] MEDS: metFORMIN XR 500 MG (GLUCOPHAGE XR) TAB PO SCH (17:35)
--- NOTE | 2019-05-11 19:12 | Progress Note ---
Subjective Date Seen by a Provider: May 11, 2019 Time Seen by a Provider: 12:55 Subjective/Events-last exam Fwup hypoglycemia, Type II HI, COPD, weakness, worsening debility. BS coming up with improved appetite. Patient is agreeable to SNF. Objective Exam Vital Signs Date Time Temp Pulse Resp B/P (MAP) Pulse Ox O2 Delivery O2 Flow Rate FiO2 05/11/19 16:00 36.8 60 18 151/66 (94) 100 Room Air 05/11/19 15:48 96 Room Air 05/11/19 12:17 61 05/11/19 12:00 36.2 62 18 156/70 (98) 98 Room Air 05/11/19 11:50 95 Room Air 05/11/19 09:00 96 Room Air 05/11/19 08:54 96 Room Air 05/11/19 08:00 36.2 62 18 172/73 (106) 97 Room Air 05/11/19 07:00 72 05/11/19 04:00 36.9 63 18 141/60 (87) 92 Room Air 05/11/19 01:00 68 05/10/19 23:17 36.9 59 18 138/63 (88) 96 Room Air 05/10/19 20:08 36.9 76 13 145/70 (95) 93 Room Air 05/10/19 19:45 Room Air 05/10/19 19:17 93 Room Air I & O 05/11/19 07:00 Intake Total 2220 ml Output Total 975 ml Balance 1245 ml Capillary Refill : Less Than 3 SecondsLess Than 3 Seconds General Appearance: No Apparent Distress Neck: Supple Respiratory: Lungs Clear Cardiovascular: Regular Rate, Rhythm Gastrointestinal: normal bowel sounds, non tender, soft Extremity: Non Tender, No Calf Tenderness, No Pedal Edema Neurologic/Psychiatric: Alert, Oriented x3 Results Lab Laboratory Tests 05/10/19 20:44: Glucometer 250H 05/11/19 04:14: Glucometer 97 05/11/19 05:03: White Blood Count 6.2, Red Blood Count 3.94L, Hemoglobin 11.3L, Hematocrit 36L, Mean Corpuscular Volume 90, Mean Corpuscular Hemoglobin 29, Mean Corpuscular Hemoglobin Concent 32, Red Cell Distribution Width 15.0H, Platelet Count 227, Mean Platelet Volume 10.9H, Neutrophils (%) (Auto) 67, Lymphocytes (%) (Auto) 19, Monocytes (%) (Auto) 11, Eosinophils (%) (Auto) 3, Basophils (%) (Auto) 0, Neutrophils # (Auto) 4.1, Lymphocytes # (Auto) 1.2, Monocytes # (Auto) 0.7, E osinophils # (Auto) 0.2, Basophils # (Auto) 0.0, Sodium Level 138, Potassium Level 3.8, Chloride Level 108H, Carbon Dioxide Level 21, Anion Gap 9, Blood Urea Nitrogen 16, Creatinine 0.80, Estimat Glomerular Filtration Rate > 60, BUN/Cr eatinine Ratio 20, Glucose Level 99, Calcium Level 8.4L 05/11/19 10:36: Glucometer 318H 05/11/19 16:00: Glucometer 137H Microbiology 05/08/19 Influenza Types A,B Antigen (JUICE) - Final, Complete 05/08/19 Blood Culture - Preliminary, Resulted No growth 05/08/19 Urine Culture - Final, Complete Streptococcus mitis group Assessment/Plan Assessment/Plan Assess & Plan/Chief Complaint 1. Hypoglycemia--resolved, decrease IVF rate and start metformin and continue accuchecks AC and HS 2. Type II HI--medical management 3. COPD--Stable 4. Weakness/Falls/Worsening Debility--will need SNF for discharge Clinical Quality Measures Admission Status Admission Dx 1. Acute Hypoglycemia--improved with IV dextrose and fluids with D5 and diet, monitor accuchecks 2. Elevated Troponin I--likely Type II HI due to hypoglycemia/hypoxia with episode 3. History of Atrial Fibrillation--has refused anticoagulation in past due to history of GI bleed 4. History of TIA--resume aspirin 5. COPD with ongoing tobacco abuse--start SVNS with duoneb prn 6. Hypertension--metoprolol started 7. Weakness/Fall Risk--start PT/OT DVT/VTE Risk/Contraindication: Risk Factor Score Per Nursin RFS Level Per Nursing on Admit: 4+=Very High Stroke: Date of last known well: Apr 30, 2019 GLADYS ORONA DO May 11, 2019 19:12
[2019-05-11 19:45] VITALS: BP 160/72
[2019-05-12] VITALS (7 sets, daily range): BP systolic 104–184; BP diastolic 62–68
[2019-05-12] MEDS: RT-ALBUTEROL/IPRATROPIUM 3 ML (DUONEB) VIAL INH SCH ×5 (03:02→22:04)
[2019-05-12 05:05] LABS: BASOPHILS % (AUTO) 0 % (0-10); EOSINOPHILS # (AUTO) 0.2 10^3/uL (0.0-0.3); EOSINOPHILS % (AUTO) 2 % (0-10); HEMATOCRIT 35 % (40-54); HEMOGLOBIN 11.2 G/DL (13.3-17.7); LYMPHOCYTES % (AUTO) 15 % (12-44); MEAN CORPUSCULAR HEMOGLOBIN 30 PG (25-34); MEAN CORPUSCULAR HGB CONC 33 G/DL (32-36); MEAN CORPUSCULAR VOLUME 91 FL (80-99); MONOCYTES # (AUTO) 0.7 X 10^3 (0.0-1.0); MONOCYTES % (AUTO) 10 % (0-12); NEUTROPHILS % (AUTO) 73 % (42-75); PLATELET COUNT 229 10^3/uL (130-400); WHITE BLOOD COUNT 6.9 10^3/uL (4.3-11.0)
[2019-05-12 05:24] LABS: BUN/CREATININE RATIO 24; CALCIUM 8.4 MG/DL (8.5-10.1); CARBON DIOXIDE 22 MMOL/L (21-32); CHLORIDE 106 MMOL/L (98-107); CREATININE SERUM 0.98 MG/DL (0.60-1.30); GFR ESTIMATED > 60; GLUCOSE 109 MG/DL (70-105); POTASSIUM 4.4 MMOL/L (3.6-5.0); SODIUM 136 MMOL/L (135-145)
[2019-05-12] MEDS: inSUlin ASPART (NovoLOG) 1 UNIT/0.01 ML (CHARGE PER UNIT) SC SCH ×4 (05:42→20:38)
[2019-05-12] MEDS: metFORMIN XR 500 MG (GLUCOPHAGE XR) TAB PO SCH ×2 (05:42→17:24)
[2019-05-12] MEDS: ENOXAPARIN 40 MG/0.4 ML (LOVENOX) SYR SC SCH (05:44)
--- NOTE | 2019-05-12 09:16 | Physical Therapy Daily Note ---
PT Daily Note-Current Subjective Agreeable. No complaints. Thinks he may discharge tomorrow. Pain Numeric Pain Scale: 0-No Pain Mental Status Patient Orientation: Person, Place, Time, Situation Attachments: IV Transfers SCALE: Activities may be completed with or without assistive devices. 6-Cqspsckthf-isadxiq completes the activity by him/herself with no assistance from a helper. 5-Set-up or Clean-up Assistance-helper sets up or cleans up; patient completes activity. [place] assists only prior to or following the activity. 4-Supervision or Touching Assistance-helper provides verbal cues and/or touching/steadying and/or contact guard assistance as patient completes activity. Assistance may be provided throughout the activity or intermittently. 3-Partial/Moderate Assistance-helper does LESS THAN HALF the effort. [place] lifts, holds or supports trunk or limbs, but provides less than half the effort. 2-Substantial/Maximal Assistance-helper does MORE THAN HALF the effort. [place] lifts or holds trunk or limbs and provides more than half the effort. 9-Mrrwkrhmn-kyijjx does ALL the effort. Patient does none of the effort to complete the activity. Or, the assistance of 2 or more helpers is required for the patient to complete the activity. If activity was not attempted, code reason: 7-Patient Refused. 9-Not Applicable-not attempted and the patient did not perform the activity before the current illness, exacerbation or injury. 10-Not Attempted due to Environmental Limitations-(lack of equipment, weather restraints, etc.). 88-Not Attempted due to Medical Conditions or Safety Concerns. Lying to Sitting/Side of Bed(Q: 4 (SBA for safety) Sit to Stand (QC): 4 (CGA for safety; skilled cues for hand placement. ) Weight Bearing Right Lower Extremity: Right Weight Bearing/Tolerated Left Lower Extremity: Left Weight Bearing/Tolerated Gait Training Distance: 200 ft Walk 150 ft (QC): 4 (CGA) Gait Assistive Device: FWW forward flexed at hips; slightly unsteady at times. Treatments Functional mobility in room and giat. Assessment Current Status: Good Progress Transfers and gait are progressing. PT Senior Living Goals Car Sweeper Goals PT Car Sweeper Goals Time Frame: May 16, 2019 Roll Left & Right (QC): 6 Sit to Lying (QC): 6 Lying-Sitting on Side/Bed(QC): 6 Sit to Stand (QC): 6 Chair/Yqk-nv-Vnsdf Xfer(QC): 6 Walk 150 ft (QC): 6 PT Plan Problem List Problem List: Activity Tolerance, Functional Strength, Safety Treatment/Plan Treatment Plan: Continue Plan of Care Treatment Plan: Bed Mobility, Education, Functional Activity Kevan, Functional Strength, Gait, Safety, Therapeutic Exercise, Transfers Treatment Duration: May 16, 2019 Frequency: 5 times per week Estimated Hrs Per Day: .25 hour per day Safety Risks/Education Patient Education: Transfer Techniques Teaching Recipient: Patient Teaching Methods: Discussion Response to Teaching: Reinforcement Needed Discharge Recommendations Therapy Discharge Recommendati: Post Acute PT Time/GCodes Time In: 830 Time Out: 850 Total Billed Treatment Time: 20 Total Billed Treatment visit GT 20 HANNAH DUARTE PT May 12, 2019 09:16
[2019-05-12] MEDS: amLODIPine 10 MG (NORVASC) TAB PO SCH (09:33)
[2019-05-12] MEDS: lisINopril 10 MG (PRINIVIL) TABLET PO SCH (09:33)
[2019-05-12] MEDS: meTOproloL SUCCINATE 50 MG (TOPROL XL) TAB PO SCH (09:33)
[2019-05-12] MEDS: ASPIRIN E.C. 81 MG (ECOTRIN) TAB PO SCH (09:33)
--- NOTE | 2019-05-12 09:54 | Progress Note - Cardiology ---
Cardiology SOAP Progress Note Subjective: Sitting up in recliner at the bedside. States he feels well today. No c/o CP, palpitations, syncope, near syncope or dyspnea. Objective: I&O/Vital Signs 05/12/19 05/12/19 05/12/19 05/12/19 05:00 07:00 08:00 08:49 Temp 37.5 Pulse 79 77 70 Resp 18 B/P (MAP) 128/66 (86) Pulse Ox 97 94 O2 Delivery Room Air Room Air 05/12/19 05/12/19 05/12/19 05/12/19 09:47 11:29 12:00 12:09 Temp 36.8 Pulse 75 64 Resp 20 B/P (MAP) 184/68 (106) Pulse Ox 94 96 99 O2 Delivery Room Air Room Air Room Air 05/12/19 16:00 Temp 36.6 Pulse 66 Resp 18 B/P (MAP) 104/68 (80) Pulse Ox 97 O2 Delivery Room Air 05/12/19 00:00 Intake Total 1430 ml Balance 1430 ml Weight (Pounds): 171 Weight (Ounces): 0.0 Weight (Calculated Kilograms): 77.947447 Constitutional: AAO x 3 (appears mildly confused at times), well-developed, well-nourished Respiratory: No accessory muscle use, No respiratory distress; chest expansion is symmetric, chest is bilaterally symmetric, lungs clear to auscultation Cardiovascular: regular rate-rhythm; No JVD; S1 and S2 Gastrointestional: No tender; audible bowel sounds Extremities: no lower extremity edema bilateral Neurologic/Psychiatric: other (moves all limbs equally) Skin: No rash on exposed areas, No ulcerations on exposed areas Results/Procedures: Labs Laboratory Tests 05/11/19 20:03: Glucometer 254H 05/12/19 04:43: White Blood Count 6.9, Red Blood Count 3.80L, Hemoglobin 11.2L, Hematocrit 35L, Mean Corpuscular Volume 91, Mean Corpuscular Hemoglobin 30, Mean Corpuscular Hemoglobin Concent 33, Red Cell Distribution Width 15.0H, Platelet Count 229, Mean Platelet Volume 11.0H, Neutrophils (%) (Auto) 73, Lymphocytes (%) (Auto) 15, Monocytes (%) (Auto) 10, Eosinophils (%) (Auto) 2, Basophils (%) (Auto) 0, Neutrophils # (Auto) 5.0, Lymphocytes # (Auto) 1.0, Monocytes # (Auto) 0.7, Eosinophils # (Auto) 0.2, Basophils # (Auto) 0.0, Sodium Level 136, Potassium Level 4.4, Chloride Level 106, Carbon Dioxide Level 22, Anion Gap 8, Blood Urea Nitrogen 24H, Creatinine 0.98, Estimat Glomerular Filtration Rate > 60, BUN/Creatinine Ratio 24, Glucose Level 109H, Calcium Level 8.4L 05/12/19 05:27: Glucometer 115H 05/12/19 11:17: Glucometer 195H 05/12/19 15:36: Glucometer 323H Microbiology 05/08/19 Influenza Types A,B Antigen (JUICE) - Final, Complete 05/08/19 Blood Culture - Preliminary, Resulted No growth 05/08/19 Urine Culture - Final, Complete Streptococcus mitis group A/P: Assessment: Poorly controlled hypertension Minimally elevated troponin, likely type 2 OK, likely due to hypoxia during his episode of hyporesponsiveness and hypoglycemia Acute on chronic diastolic CHF Hypoglycemia - management per medical services PAF, as documented on pacemaker interrogation of 02/27/16. Pt refuses to take OAC because of a h/o GI and urinary bleeds Syncope due to intermittent advanced AV block, corrected with dual-chamber pacemaker implantation on 06/02/2010. The pacemaker is working normally per interrogation carried out on 09/01/18 Vertebrobasilar insufficiency, which has been followed by his neurologist Coronary artery disease primary consisting of a chronically occluded and collateralized right coronary artery and moderate mid-vessel disease of the left anterior descending artery, unchanged on his most recent cardiac catheterization of 09/20/2008. MPI of 08/26/17 showed inferior infarction with minimal monica- infarct ischemia, basal inf hypokinesis, LVEF 63% Echo of 09/01/17: LVEF 60-65%, grade 2 perez dysfunction, mod MAC, mild MR, AoV sclerosis w/o stenosis, PASP 35-40 mmHg No aneurysm involving the mid or distal abdominal aorta u/s on 01/02/15 ([place], [place]) Symptoms of intermittent hematuria. This has been diagnosed to be prostate hypertrophy and is being followed by his urologist, Dr Daniel Hyperlipidemia being treated with simvastatin, being followed by Dr Clemente. Maturity onset diabetes mellitus. Tobaccoism from which he has been advised to refrain. Carotid u/s of 08/25/17: moderate bilat carotid plaque w/o evidence of hemodynamic signficance Chronic right bundle branch block. History of pulmonary nodule. This has been followed by Dr Mulligan and Dr Clemente Bilateral leg claudication which currently appears well controlled. History of right common angioplasty and right common iliac artery stenting with a 9 x 25 mm iliac artery stent followed by femoral-femoral crossover bypass grafting with a 7 mm straight EPTFE graft by Dr. Giang in March 2006. A Doppler study of February 2011 indicated bilateral aorto-femoral bypass grafting with patency of the visualized distal aspect of the graft at femoral anastomosis. There was considerable distal disease reported. He does report chronic 1-2 block leg claudication symptoms, but this is unchanged Plan: BP improved Refuses OAC other than ASA as noted above Monitor lab Replace electrolytes as indicated I spoke with him and answered CV-related questions OK to discharge home from cardiac stand point with out pt f/u Clinical Quality Measures Stroke: Date of last known well: Apr 30, 2019 CRIS MCKEON May 12, 2019 09:54
[2019-05-12] MEDS ORDERED: AMLO10TA7 PO (09:56)
[2019-05-12] MEDS ORDERED: LISI10TA2 PO (09:56)
[2019-05-12] MEDS ORDERED: METO50TA7 PO (09:56)
--- NOTE | 2019-05-12 13:02 | Progress Note ---
Subjective Date Seen by a Provider: May 12, 2019 Time Seen by a Provider: 13:00 Subjective/Events-last exam Fwup hypoglycemia, Type II MN, COPD, weakness, worsening debility, metabolic encephalopathy. Plan is for DC to SNF tomorrow in [facility]--patient states his brother lives in [facility]. Objective Exam Vital Signs Date Time Temp Pulse Resp B/P (MAP) Pulse Ox O2 Delivery O2 Flow Rate FiO2 05/12/19 12:09 64 05/12/19 11:29 96 Room Air 05/12/19 09:47 94 Room Air 05/12/19 08:49 94 Room Air 05/12/19 08:00 37.5 70 18 128/66 (86) 97 Room Air 05/12/19 07:00 77 05/12/19 05:00 79 05/12/19 04:15 37.5 70 18 128/66 (86) 97 Room Air 05/12/19 00:10 37.4 64 20 143/65 (91) 94 Room Air 05/11/19 20:23 Room Air 05/11/19 19:45 36.7 60 17 160/72 (101) 98 Room Air 05/11/19 16:00 36.8 60 18 151/66 (94) 100 Room Air 05/11/19 15:48 96 Room Air I & O 05/12/19 07:00 Intake Total 1480 ml Balance 1480 ml Capillary Refill : Less Than 3 SecondsLess Than 3 Seconds General Appearance: No Apparent Distress Neck: Supple Respiratory: Lungs Clear Cardiovascular: Regular Rate, Rhythm Gastrointestinal: normal bowel sounds, non tender, soft Extremity: Non Tender, No Calf Tenderness, No Pedal Edema Neurologic/Psychiatric: Alert, Oriented x3 Results Lab Laboratory Tests 05/11/19 16:00: Glucometer 137H 05/11/19 20:03: Glucometer 254H 05/12/19 04:43: White Blood Count 6.9, Red Blood Count 3.80L, Hemoglobin 11.2L, Hematocrit 35L, Mean Corpuscular Volume 91, Mean Corpuscular Hemoglobin 30, Mean Corpuscular Hemoglobin Concent 33, Red Cell Distribution Width 15.0H, Platelet Count 229, Mean Platelet Volume 11.0H, Neutrophils (%) (Auto) 73, Lymphocytes (%) (Auto) 15, Monocytes (%) (Auto) 10, Eosinophils (%) (Auto) 2, Basophils (%) (Auto) 0, Neutrophils # (Auto) 5.0, Lymphocytes # (Auto) 1.0, Monocytes # (Auto) 0.7, Eosinophils # (Auto) 0.2, Basophils # (Auto) 0.0, Sodium Level 136, Potassium Level 4.4, Chloride Level 106, Carbon Dioxide Level 22, Anion Gap 8, Blood Urea Nitrogen 24H, Creatinine 0.98, Estimat Glomerular Filtration Rate > 60, BUN/Creatinine Ratio 24, Glucose Level 109H, Calcium Level 8.4L 05/12/19 05:27: Glucometer 115H 05/12/19 11:17: Glucometer 195H Microbiology 05/08/19 Influenza Types A,B Antigen (JUICE) - Final, Complete 05/08/19 Blood Culture - Preliminary, Resulted No growth 05/08/19 Urine Culture - Final, Complete Streptococcus mitis group Assessment/Plan Assessment/Plan Assess & Plan/Chief Complaint 1. Hypoglycemia--resolved, decrease IVFs and continue metformin and continue accuchecks AC and HS 2. Type II MN--medical management 3. COPD--Stable 4. Weakness/Falls/Worsening Debility--to SNF tomorrow 5. Metabolic Encephalopathy with Underlying Dementia--improved but still with some difficulty gathering his thoughts at times Clinical Quality Measures Admission Status Admission Dx 1. Acute Hypoglycemia--improved with IV dextrose and fluids with D5 and diet, monitor accuchecks 2. Elevated Troponin I--likely Type II MN due to hypoglycemia/hypoxia with episode 3. History of Atrial Fibrillation--has refused anticoagulation in past due to history of GI bleed 4. History of TIA--resume aspirin 5. COPD with ongoing tobacco abuse--start SVNS with duoneb prn 6. Hypertension--metoprolol started 7. Weakness/Fall Risk--start PT/OT DVT/VTE Risk/Contraindication: Risk Factor Score Per Nursin RFS Level Per Nursing on Admit: 4+=Very High Stroke: Date of last known well: Apr 30, 2019 GLADYS ORONA DO May 12, 2019 13:02
--- NOTE | 2019-05-12 13:42 | Progress Note - Cardiology ---
Cardiology SOAP Progress Note Subjective: Gen malaise is improving No cp or palp or syncope No shortness of breath Stamina is low No focal weakness No n/v/d Objective: I&O/Vital Signs 05/12/19 05/12/19 05/12/19 05/12/19 04:15 05:00 07:00 08:00 Temp 37.5 37.5 Pulse 70 79 77 70 Resp 18 18 B/P (MAP) 128/66 (86) 128/66 (86) Pulse Ox 97 97 O2 Delivery Room Air Room Air 05/12/19 05/12/19 05/12/19 05/12/19 08:49 09:47 11:29 12:00 Temp 36.8 Pulse 75 Resp 20 B/P (MAP) 184/68 (106) Pulse Ox 94 94 96 99 O2 Delivery Room Air Room Air Room Air Room Air 05/12/19 12:09 Pulse 64 05/12/19 00:00 Intake Total 1430 ml Balance 1430 ml Weight (Pounds): 171 Weight (Ounces): 0.0 Weight (Calculated Kilograms): 77.031794 Constitutional: AAO x 3 (appears mildly confused at times), well-developed, well-nourished Respiratory: No accessory muscle use, No respiratory distress; chest expansion is symmetric, chest is bilaterally symmetric, lungs clear to auscultation Cardiovascular: regular rate-rhythm; No JVD; S1 and S2 Gastrointestional: No tender; audible bowel sounds Extremities: no lower extremity edema bilateral Neurologic/Psychiatric: other (moves all limbs equally) Skin: No rash on exposed areas, No ulcerations on exposed areas Results/Procedures: Labs Laboratory Tests 05/11/19 16:00: Glucometer 137H 05/11/19 20:03: Glucometer 254H 05/12/19 04:43: White Blood Count 6.9, Red Blood Count 3.80L, Hemoglobin 11.2L, Hematocrit 35L, Mean Corpuscular Volume 91, Mean Corpuscular Hemoglobin 30, Mean Corpuscular Hemoglobin Concent 33, Red Cell Distribution Width 15.0H, Platelet Count 229, Mean Platelet Volume 11.0H, Neutrophils (%) (Auto) 73, Lymphocytes (%) (Auto) 15, Monocytes (%) (Auto) 10, Eosinophils (%) (Auto) 2, Basophils (%) (Auto) 0, Neutrophils # (Auto) 5.0, Lymphocytes # (Auto) 1.0, Monocytes # (Auto) 0.7, Eosinophils # (Auto) 0.2, Basophils # (Auto) 0.0, Sodium Level 136, Potassium Level 4.4, Chloride Level 106, Carbon Dioxide Level 22, Anion Gap 8, Blood Urea Nitrogen 24H, Creatinine 0.98, Estimat Glomerular Filtration Rate > 60, BUN/Creatinine Ratio 24, Glucose Level 109H, Calcium Level 8.4L 05/12/19 05:27: Glucometer 115H 05/12/19 11:17: Glucometer 195H Microbiology 05/08/19 Influenza Types A,B Antigen (JUICE) - Final, Complete 05/08/19 Blood Culture - Preliminary, Resulted No growth 05/08/19 Urine Culture - Final, Complete Streptococcus mitis group Laboratory Tests 05/11/19 05:03 05/12/19 04:43 A/P: Assessment: Poorly controlled hypertension, improving with adjustment of meds Minimally elevated troponin, likely type 2 ID, likely due to hypoxia during his episode of hyporesponsiveness and hypoglycemia Acute on chronic diastolic CHF Hypoglycemia - management per medical services PAF, as documented on pacemaker interrogation of 02/27/16. Pt refuses to take OAC because of a h/o GI and urinary bleeds Syncope due to intermittent advanced AV block, corrected with dual-chamber pace maker implantation on 06/02/2010. The pacemaker is working normally per interrogation carried out on 09/01/18 Vertebrobasilar insufficiency, which has been followed by his neurologist Coronary artery disease primary consisting of a chronically occluded and collateralized right coronary artery and moderate mid-vessel disease of the left anterior descending artery, unchanged on his most recent cardiac catheterization of 09/20/2008. MPI of 08/26/17 showed inferior infarction with minimal monica- infarct ischemia, basal inf hypokinesis, LVEF 63% Echo of 09/01/17: LVEF 60-65%, grade 2 perez dysfunction, mod MAC, mild MR, AoV sclerosis w/o stenosis, PASP 35-40 mmHg No aneurysm involving the mid or distal abdominal aorta u/s on 01/02/15 ([facility], [place], [place]) Symptoms of intermittent hematuria. This has been diagnosed to be prostate hypertrophy and is being followed by his urologist, Dr Daniel Hyperlipidemia being treated with simvastatin, being followed by Dr Clemente. Maturity onset diabetes mellitus. Tobaccoism from which he has been advised to refrain. Carotid u/s of 08/25/17: moderate bilat carotid plaque w/o evidence of hemodynamic signficance Chronic right bundle branch block. History of pulmonary nodule. This has been followed by Dr Mulligan and Dr Clemente Bilateral leg claudication which currently appears well controlled. History of right common angioplasty and right common iliac artery stenting with a 9 x 25 mm iliac artery stent followed by femoral-femoral crossover bypass grafting with a 7 mm straight EPTFE graft by Dr. Giang in March 2006. A Doppler study of February 2011 indicated bilateral aorto-femoral bypass grafting with patency of the visualized distal aspect of the graft at femoral anastomosis. There was considerable distal disease reported. He does report chronic 1-2 block leg claudication symptoms, but this is unchanged Plan: BP improved Refuses OAC other than ASA as noted above Monitor lab Replace electrolytes as indicated I spoke with him and answered CV-related questions OK to discharge home, from cardiac stand point, with out pt f/u Clinical Quality Measures Stroke: Date of last known well: Apr 30, 2019 VELASQUEZ HANNON MD FACP FAC CCDS May 12, 2019 13:42
--- NOTE | 2019-05-12 13:50 | NUR ---
CM/SS follow up on discharge plan. Plan: The patient will discharge tomorrow 05/13 to [facility]. CM/SS will send finalized discharge when available. Will also complete care assessment tomorrow. [facility] called this SS and stated since the patient has a managed care plan he would owe $20 dollar per day to the facility. CM/SS discussed this with the patient and he stated "I can manage that". This information was also given the Jonathon the patients brother. The patients brother is also dropping off his regular medicare card to [facility] so they will have a copy. No other needs at this time.
--- NOTE | 2019-05-12 14:42 | Occupational Ther Daily Note ---
OT Current Status-Daily Note Subjective Pt seated in recliner at start of session, stating he felt good today. He said he is hopefully leaving tomorrow to go to [facility]. ADL-Treatment Therapy Code Descriptions/Definitions Functional [place] Measure: 0=Not Assessed/NA 4=Minimal Assistance 1=Total Assistance 5=Supervision or Setup 2=Maximal Assistance 6=Modified [place] 3=Moderate Assistance 7=Complete IndependenceSCALE: Activities may be completed with or without assistive devices. 8-Wijpynduxs-towvekz completes the activity by him/herself with no assistance from a helper. 5-Set-up or Clean-up Assistance-helper sets up or cleans up; patient completes activity. [place] assists only prior to or following the activity. 4-Supervision or Touching Assistance-helper provides verbal cues and/or touching/steadying and/or contact guard assistance as patient completes activity. Assistance may be provided throughout the activity or intermittently. 3-Partial/Moderate Assistance-helper does LESS THAN HALF the effort. [place] lifts, holds or supports trunk or limbs, but provides less than half the effort. 2-Substantial/Maximal Assistance-helper does MORE THAN HALF the effort. [place] lifts or holds trunk or limbs and provides more than half the effort. 9-Dnhyudxfr-bmzsrj does ALL the effort. Patient does none of the effort to complete the activity. Or, the assistance of 2 or more helpers is required for the patient to complete the activity. If activity was not attempted, code reason: 7-Patient Refused. 9-Not Applicable-not attempted and the patient did not perform the activity before the current illness, exacerbation or injury. 10-Not Attempted due to Environmental Limitations-(lack of equipment, weather restraints, etc.). 88-Not Attempted due to Medical Conditions or Safety Concerns. Other Treatment Pt seated upright in recliner. He reported doing exercises he was taught yesterday. When asked to demo exercises, pt was able to recall shoulder flexion /extension and wrist flexion/extension. OT educated pt on also doing elbow exercises. Pt then completed oral hygiene with set up/clean up assist at tray table. Pt then performed x15 reps each BUE of the exercises previously demo'd. OT educated pt on completing exercises throughout the day, he verbalized understanding. Post OT session, pt seated upright in recliner, call light in re ach and all needs met. Education OT Patient Education: Correct positioning, Energy conservation, Exercise program, Modified ADL techniques, Progress toward Goal/Update tx plan, Purpose of tx/functional activities Teaching Recipient: Patient Teaching Methods: Demonstration, Discussion Response to Teaching: Verbalize Understanding, Return Demonstration, Reinforcement Needed OT Penitentiary Goals Penitentiary Goals Time Frame: May 20, 2019 Eating (QC): 6 Oral Hygiene (QC): 6 Toileting Hygiene (QC): 6 Shower/Bathe Self (QC): 6 Upper Body Dressing (QC): 6 Lower Body Dressing (QC): 6 On/Off Footwear (QC): 6 1=Demonstrate adherence to instructed precautions during ADL tasks. 2=Patient will verbalize/demonstrate understanding of assistive devices/modifications for ADL. 3=Patient will improve strength/tolerance for activity to enable patient to perform ADL's. OT Education/Plan Problem List/Assessment Assessment: Decreased Activ Tolerance, Decreased UE Strength, Impaired I ADL's, Impaired Self-Care Skills Discharge Recommendations Plan/Recommendations: Continue POC Treatment Plan/Plan of Care Patient would benefit from OT for education, treatment and training to promote independence in ADL's, mobility, safety and/or upper extremity function for ADL's. Plan of Care: ADL Retraining, Functional Mobility, UE Funct Exercise/Act Treatment Duration: May 20, 2019 Frequency: 5 times per week Estimated Hrs Per Day: .25 hour per day Agreement: Yes Rehab Potential: Good Time/GCodes Start Time: 13:30 Stop Time: 13:43 Total Time Billed (hr/min): 13 Billed Treatment Time 1, ANGE VILLEGAS OT May 12, 2019 14:42
[2019-05-12] MEDS: TAMSULOSIN 0.4 MG (FLOMAX) CAP PO SCH (17:24)
[2019-05-13 04:00] VITALS: BP 162/72
[2019-05-13 06:00] LABS: BASOPHILS % (AUTO) 1 % (0-10); EOSINOPHILS # (AUTO) 0.2 10^3/uL (0.0-0.3); EOSINOPHILS % (AUTO) 4 % (0-10); HEMATOCRIT 36 % (40-54); HEMOGLOBIN 11.5 G/DL (13.3-17.7); LYMPHOCYTES # (AUTO) 1.1 X 10^3 (1.0-4.0); LYMPHOCYTES % (AUTO) 17 % (12-44); MEAN CORPUSCULAR HEMOGLOBIN 29 PG (25-34); MEAN CORPUSCULAR HGB CONC 32 G/DL (32-36); MEAN CORPUSCULAR VOLUME 90 FL (80-99); MEAN PLATELET VOLUME 10.8 FL (7.4-10.4); MONOCYTES # (AUTO) 0.6 X 10^3 (0.0-1.0); MONOCYTES % (AUTO) 9 % (0-12); NEUTROPHILS # (AUTO) 4.5 X 10^3 (1.8-7.8); NEUTROPHILS % (AUTO) 70 % (42-75); PLATELET COUNT 254 10^3/uL (130-400); RED CELL DISTRIBUTION WIDTH 15.3 % (10.0-14.5); WHITE BLOOD COUNT 6.5 10^3/uL (4.3-11.0)
[2019-05-13] MEDS: ENOXAPARIN 40 MG/0.4 ML (LOVENOX) SYR SC SCH (06:04)
[2019-05-13] MEDS: metFORMIN XR 500 MG (GLUCOPHAGE XR) TAB PO SCH (06:04)
[2019-05-13] MEDS: inSUlin ASPART (NovoLOG) 1 UNIT/0.01 ML (CHARGE PER UNIT) SC SCH ×3 (06:04→16:12)
[2019-05-13 06:26] LABS: BUN/CREATININE RATIO 28; CALCIUM 8.9 MG/DL (8.5-10.1); CARBON DIOXIDE 23 MMOL/L (21-32); CHLORIDE 105 MMOL/L (98-107); CREATININE SERUM 0.92 MG/DL (0.60-1.30); GFR ESTIMATED > 60; GLUCOSE 142 MG/DL (70-105); POTASSIUM 3.7 MMOL/L (3.6-5.0); SODIUM 138 MMOL/L (135-145)
[2019-05-13 08:00] VITALS: BP 155/72
[2019-05-13] MEDS: RT-ALBUTEROL/IPRATROPIUM 3 ML (DUONEB) VIAL INH SCH ×3 (08:23→15:24)
[2019-05-13] MEDS: ASPIRIN E.C. 81 MG (ECOTRIN) TAB PO SCH (09:13)
[2019-05-13] MEDS: lisINopril 10 MG (PRINIVIL) TABLET PO SCH (09:13)
[2019-05-13] MEDS: amLODIPine 10 MG (NORVASC) TAB PO SCH (09:13)
[2019-05-13] MEDS: meTOproloL SUCCINATE 50 MG (TOPROL XL) TAB PO SCH (09:13)
--- NOTE | 2019-05-13 09:57 | Physical Therapy Daily Note ---
PT Daily Note-Current Subjective Agrees to PT. Reports he is unsure if he is leaving today. Mental Status Patient Orientation: Person, Place, Time, Situation Transfers SCALE: Activities may be completed with or without assistive devices. 8-Eewhdrmpgt-thoshic completes the activity by him/herself with no assistance from a helper. 5-Set-up or Clean-up Assistance-helper sets up or cleans up; patient completes activity. [place] assists only prior to or following the activity. 4-Supervision or Touching Assistance-helper provides verbal cues and/or touching/steadying and/or contact guard assistance as patient completes activity. Assistance may be provided throughout the activity or intermittently. 3-Partial/Moderate Assistance-helper does LESS THAN HALF the effort. [place] lifts, holds or supports trunk or limbs, but provides less than half the effort. 2-Substantial/Maximal Assistance-helper does MORE THAN HALF the effort. [place] lifts or holds trunk or limbs and provides more than half the effort. 9-Mthmlvcwk-djzrjk does ALL the effort. Patient does none of the effort to complete the activity. Or, the assistance of 2 or more helpers is required for the patient to complete the activity. If activity was not attempted, code reason: 7-Patient Refused. 9-Not Applicable-not attempted and the patient did not perform the activity before the current illness, exacerbation or injury. 10-Not Attempted due to Environmental Limitations-(lack of equipment, weather restraints, etc.). 88-Not Attempted due to Medical Conditions or Safety Concerns. Sit to Stand (QC): 4 (SBA for safety) Weight Bearing Right Lower Extremity: Right Weight Bearing/Tolerated Left Lower Extremity: Left Weight Bearing/Tolerated Gait Training Does the Patient Walk?: Yes Distance: 250 ft Walk 150 ft (QC): 4 (SBA ; narrow YANELIS and tends to keep walker too far ahead. no layne LOB noted. ) Gait Assistive Device: FWW Treatments Functional gait training; chair alarm on post treatment. Assessment Current Status: Good Progress Good functional progress. Continues to requires SBA for safety. PT Usp Goals Floor Steward/Stewardess Goals PT Floor Steward/Stewardess Goals Time Frame: May 16, 2019 Roll Left & Right (QC): 6 Sit to Lying (QC): 6 Lying-Sitting on Side/Bed(QC): 6 Sit to Stand (QC): 6 Chair/Nkd-ms-Gxqsa Xfer(QC): 6 Walk 150 ft (): 6 PT Plan Problem List Problem List: Activity Tolerance, Functional Strength, Safety Treatment/Plan Treatment Plan: Continue Plan of Care Treatment Plan: Bed Mobility, Education, Functional Activity Kevan, Functional Strength, Gait, Safety, Therapeutic Exercise, Transfers Treatment Duration: May 16, 2019 Frequency: 5 times per week Estimated Hrs Per Day: .25 hour per day Time/GCodes Time In: 935 Time Out: 953 Total Billed Treatment Time: 18 Total Billed Treatment visit GT 18 HANNAH DUARTE PT May 13, 2019 09:57
[2019-05-13] MEDS ORDERED: METO50TA7 PO (10:19)
[2019-05-13] MEDS ORDERED: AMLO10TA7 PO (10:19)
[2019-05-13] MEDS ORDERED: TMSL.4C PO (10:20)
--- NOTE | 2019-05-13 10:25 | Discharge Inst-Skilled Nursing ---
Discharge Inst-Skilled NF Reconcile Patient Problems Problems Reviewed?: Yes Patient Instructions Patient Problems: Hypertension COPD Weakness/Debility Dementia Diabetes mellitus II with recent hypoglycemia Consult/Follow Up/Orders Follow Up Appt.: Fwup with Dr. Clemente in 2 weeks Skilled NF Admit to: Certification (SNF) I certify that SNF services are required to be given on an inpatient basis because of the above named patient's need for retirement care on a continuing basis for the conditions(s) for which he/she was receiving inpatient hospital services prior to his/her transfer to the SNF. [facility] Facility Order: Cane Weigher-Evaluate & Treat, Physical Therapy-Evaluate & Treat, Speech Language-Evaluate & Treat Oxygen Delivery Method: Room Air Discharge Diet: Cardiac Diet Daily Activity as Tolerated: Yes Resuscitation Status: Full Code New & Resume Previous Orders Other Instructions Accuchecks daily Blood pressure pulse checks twice a week CBC, CMP, HbA1C every 91 days Lipids every 6mos Pricila Clemente May 13, 2019 10:22 Pneu Vac Indicated: Yes PRICILA CLEMENTE DO May 13, 2019 10:25
[2019-05-13] MEDS ORDERED: IPRA3AMP31 INH (10:26)
--- NOTE | 2019-05-13 10:48 | NUR ---
CM/SS talked to facility this a.m. Julita from [facility] call this SS and stated that she realized they did not run prior authorization for insurance even though they had received faxed medical records on the 05/11. Julita stated she will submit to insurance this morning and will contact this SS with a new supervisor picking crew time. CM/SS informed the nurse, physician, and patient of this.
--- NOTE | 2019-05-13 11:16 | Occupational Ther Daily Note ---
OT Current Status-Daily Note Subjective Pt up in recliner with soiled pants. Pt willing to participate in OT services this date, however was anxious regarding his insurance situation. Pain Numeric Pain Scale: 0-No Pain ADL-Treatment Therapy Code Descriptions/Definitions Functional [place] Measure: 0=Not Assessed/NA 4=Minimal Assistance 1=Total Assistance 5=Supervision or Setup 2=Maximal Assistance 6=Modified [place] 3=Moderate Assistance 7=Complete IndependenceSCALE: Activities may be completed with or without assistive devices. 4-Iedfvvffzt-hwbonla completes the activity by him/herself with no assistance from a helper. 5-Set-up or Clean-up Assistance-helper sets up or cleans up; patient completes activity. [place] assists only prior to or following the activity. 4-Supervision or Touching Assistance-helper provides verbal cues and/or touching/steadying and/or contact guard assistance as patient completes activity. Assistance may be provided throughout the activity or intermittently. 3-Partial/Moderate Assistance-helper does LESS THAN HALF the effort. [place] lifts, holds or supports trunk or limbs, but provides less than half the effort. 2-Substantial/Maximal Assistance-helper does MORE THAN HALF the effort. [place] lifts or holds trunk or limbs and provides more than half the effort. 5-Ienaajlhg-zevmwa does ALL the effort. Patient does none of the effort to complete the activity. Or, the assistance of 2 or more helpers is required for the patient to complete the activity. If activity was not attempted, code reason: 7-Patient Refused. 9-Not Applicable-not attempted and the patient did not perform the activity before the current illness, exacerbation or injury. 10-Not Attempted due to Environmental Limitations-(lack of equipment, weather restraints, etc.). 88-Not Attempted due to Medical Conditions or Safety Concerns. Shower/Bathe Self (QC): 4 (CGA while sponge bathing buttocks and perineal region. ) Lower Body Dressing (QC): 4 (CGA ) On/Off Footwear: 5 (Setup) Other Treatment Pt performed multiple sit to stand transfers during ADL tasks, and required CGA with verbal cues for postural control, and importance for use of FWW. Pt's call light in place, and chair alarm turned on prior to leaving pt's room. Education OT Patient Education: Modified ADL techniques, Purpose of tx/functional activities, Reviewed precautions, Safety issues, Transfer techniques Teaching Recipient: Patient Teaching Methods: Discussion Response to Teaching: Verbalize Understanding, Return Demonstration OT Wellness Assistant Goals Penitentiary Goals Time Frame: May 20, 2019 Eating (QC): 6 Oral Hygiene (QC): 6 Toileting Hygiene (QC): 6 Shower/Bathe Self (QC): 6 Upper Body Dressing (QC): 6 Lower Body Dressing (QC): 6 On/Off Footwear (QC): 6 1=Demonstrate adherence to instructed precautions during ADL tasks. 2=Patient will verbalize/demonstrate understanding of assistive devices/modifications for ADL. 3=Patient will improve strength/tolerance for activity to enable patient to perform ADL's. OT Education/Plan Discharge Recommendations Plan/Recommendations: Continue POC Treatment Plan/Plan of Care Patient would benefit from OT for education, treatment and training to promote independence in ADL's, mobility, safety and/or upper extremity function for ADL's. Plan of Care: ADL Retraining, Functional Mobility, UE Funct Exercise/Act Treatment Duration: May 20, 2019 Frequency: 5 times per week Estimated Hrs Per Day: .25 hour per day Agreement: Yes Rehab Potential: Good Time/GCodes Start Time: 10:35 Stop Time: 11:15 Total Time Billed (hr/min): 40 Billed Treatment Time 1, ADL3 HARSHA WEST OT May 13, 2019 11:16
[2019-05-13 12:00] VITALS: BP 175/62
--- NOTE | 2019-05-13 12:17 | Progress Note - Cardiology ---
Cardiology SOAP Progress Note Subjective: No cp or palp or syncope or shortness of breath rest Malaise and weakness slowly improving No n/v/d Objective: I&O/Vital Signs 05/13/19 05/13/19 05/13/19 05/13/19 01:00 04:00 07:00 08:00 Temp 36.9 36.8 Pulse 64 63 60 62 Resp 17 20 B/P (MAP) 162/72 (102) 155/72 (99) Pulse Ox 91 94 O2 Delivery Room Air Room Air 05/13/19 05/13/19 08:23 12:03 Pulse Ox 95 95 O2 Delivery Room Air Room Air 05/13/19 00:00 Intake Total 1297 ml Balance 1297 ml Weight (Pounds): 171 Weight (Ounces): 0.0 Weight (Calculated Kilograms): 77.556255 Constitutional: AAO x 3 (appears mildly confused at times), well-developed, well-nourished Respiratory: No accessory muscle use, No respiratory distress; chest expansion is symmetric, chest is bilaterally symmetric, lungs clear to auscultation Cardiovascular: regular rate-rhythm; No JVD; S1 and S2 Gastrointestional: No tender; audible bowel sounds Extremities: no lower extremity edema bilateral Neurologic/Psychiatric: other (moves all limbs equally) Skin: No rash on exposed areas, No ulcerations on exposed areas Results/Procedures: Labs Laboratory Tests 05/12/19 15:36: Glucometer 323H 05/12/19 20:35: Glucometer 94 05/13/19 04:58: Glucometer 138H 05/13/19 05:35: White Blood Count 6.5, Red Blood Count 4.00L, Hemoglobin 11.5L, Hematocrit 36L, Mean Corpuscular Volume 90, Mean Corpuscular Hemoglobin 29, Mean Corpuscular Hemoglobin Concent 32, Red Cell Distribution Width 15.3H, Platelet Count 254, Mean Platelet Volume 10.8H, Neutrophils (%) (Auto) 70, Lymphocytes (%) (Auto) 17, Monocytes (%) (Auto) 9, Eosinophils (%) (Auto) 4, Basophils (%) (Auto) 1, Neutrophils # (Auto) 4.5, Lymphocytes # (Auto) 1.1, Monocytes # (Auto) 0.6, E osinophils # (Auto) 0.2, Basophils # (Auto) 0.0, Sodium Level 138, Potassium Level 3.7, Chloride Level 105, Carbon Dioxide Level 23, Anion Gap 10, Blood Urea Nitrogen 26H, Creatinine 0.92, Estimat Glomerular Filtration Rate > 60, BUN/Creatinine Ratio 28, Glucose Level 142H, Calcium Level 8.9 05/13/19 10:44: Glucometer 289H Microbiology 05/08/19 Influenza Types A,B Antigen (JUICE) - Final, Complete 05/08/19 Blood Culture - Preliminary, Resulted No growth 05/08/19 Urine Culture - Final, Complete Streptococcus mitis group Laboratory Tests 05/12/19 04:43 05/13/19 05:35 A/P: Assessment: Hypertension, improving with adjustment of meds Minimally elevated troponin, likely type 2 OR, likely due to hypoxia during his episode of hyporesponsiveness and hypoglycemia Acute on chronic diastolic CHF, clinically compensated Hypoglycemia - management per medical services PAF, as documented on pacemaker interrogation of 02/27/16. Pt refuses to take OAC because of a h/o GI and urinary bleeds Syncope due to intermittent advanced AV block, corrected with dual-chamber pacemaker implantation on 06/02/2010. The pacemaker is working normally per interrogation carried out on 09/01/18 Vertebrobasilar insufficiency, which has been followed by his neurologist Coronary artery disease primary consisting of a chronically occluded and collateralized right coronary artery and moderate mid-vessel disease of the left anterior descending artery, unchanged on his most recent cardiac catheterization of 09/20/2008. MPI of 08/26/17 showed inferior infarction with minimal monica- infarct ischemia, basal inf hypokinesis, LVEF 63% Echo of 09/01/17: LVEF 60-65%, grade 2 perez dysfunction, mod MAC, mild MR, AoV sclerosis w/o stenosis, PASP 35-40 mmHg No aneurysm involving the mid or distal abdominal aorta u/s on 01/02/15 ([facility], [place], [place]) Symptoms of intermittent hematuria. This has been diagnosed to be prostate hypertrophy and is being followed by his urologist, Dr Daniel Hyperlipidemia being treated with simvastatin, being followed by Dr Clemente. Maturity onset diabetes mellitus. Tobaccoism from which he has been advised to refrain. Carotid u/s of 08/25/17: moderate bilat carotid plaque w/o evidence of hemodynamic signficance Chronic right bundle branch block. History of pulmonary nodule. This has been followed by Dr Mulligan and Dr Clemente Bilateral leg claudication which currently appears well controlled. History of right common angioplasty and right common iliac artery stenting with a 9 x 25 mm iliac artery stent followed by femoral-femoral crossover bypass grafting with a 7 mm straight EPTFE graft by Dr. Giang in March 2006. A Doppler study of February 2011 indicated bilateral aorto-femoral bypass grafting with patency of the visualized distal aspect of the graft at femoral anastomosis. There was considerable distal disease reported. He does report chronic 1-2 block leg claudication symptoms, but this is unchanged Plan: BP improved Refuses OAC other than ASA as noted above Monitor lab Replace electrolytes as indicated OK to discharge home, from cardiac stand point, with out pt f/u Dr Ruiz covering our service for the weekend Clinical Quality Measures Stroke: Date of last known well: Apr 30, 2019 VELASQUEZ HANNON MD FACP FAC CCDS May 13, 2019 12:17
[2019-05-13 16:00] VITALS: BP 154/70
--- NOTE | 2019-05-13 16:37 | NUR ---
CM/SS finalize discharge plan. Plan: [facility] is going to [facility] today. Julita is on her way to cloth picker patient. The nurse is notified. Finalized orders have been sent. Care assessment: The patient and this worker completed a care assessment. [facility]. No other needs.
[2019-05-13 16:45] VITALS: BP 154/70
--- OUTSIDE RECORDS SUMMARY | 2019-05-15 10:11 | XMS REPORT | Clinical Summary ---
Author Author [facility] Organization [facility] Address Unknown Phone Unavailable Care Team Providers Care Machinery Repair Maintenance Supervisor Name Role Phone Pricila Clemente MD PCP Source Comments Some departments are not documenting in the electronic medical record. If you d o not see the information that you expected, contact Release of Information in [facility] [place] Information Management department at [phone] for further assistan ce in locating additional records.[facility] Allergies No Known Allergies Medications End Date Status Medication Sig Dispensed Refills Start Date Active metFORMIN-XR(+) 0 (GLUCOPHAGE XR) 500 mg 9 extended release tablet Active simvastatin (ZOCOR) 40 mg 0 tablet 9 Active JANUVIA 100 mg tab tablet 0 9 Active tamsulosin (FLOMAX) 0.4 0 mg capsule 9 Active glimepiride (AMARYL) 4 mg 0 tablet 9 Active trimethoprim/sulfamethoxa 99 zole (BACTRIM SS) 80/400 9 mg tablet Active finasteride (PROSCAR) 5 0 mg tablet 9 Active atropine (ATROPISOL) 1 % INSTILL 1 1 07/23 ophthalmic solution DROP IN OU Q 9 12 H FOR 7 DAYS Active amoxicillin (AMOXIL) 500 0 mg capsule 9 Active prednisolone acetate Apply one 10 mL 1 01/24 (PRED FORTE) 1 % drop to left 9 ophthalmic suspension eye as directed four times daily. 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 I recommended he discuss sleep study wi th his PCP. Entropion of both lower eyelids 01/24/2019 Trichiasis of eyelid of both eyes 01/24/2019 Last Assessment & Plan: Has had epilation in the last Patient waking up with symptoms of tear ing and watering, with FB sensation Discussed findings, option for referral to oculoplastics At this time, he elects to monitor and will let me know if it starts to bother him more. There is no corneal a brasion or erosion today. 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 Bar . There is trace macular edema in the left eye and his VA remains 20/30. He has not noticed any blurriness or distortion. We discussed the option s for treatment, including observation and steroid treatment, yvonne nina he responded to nicely 6 months ago. Since his VA is preserved and he is asymptomatic, he defers intravitreal injection. We discussed t he potential (albeit limited) role of topical steroids, which he tried in the past prior to seeing me. We discussed a trial of topical steroids w ith predniosolone, which he as at home, QID OS until I see him again afte r the holidays. He will return for worsening vision or distoriton. Posterior uveitis, bilateral 07/30/2018 Last Assessment & Plan: OCT OD no edema or SRF OS recurrent worsening edema Ozurdex OS, RTC 6wk The findings were reviewed with the virgilio welch. We have discussed the options for treatment, including intravitreal i njection therapy and observation. I have recommended intravitreal injecti on with a dexamethasone implant (Ozurdex). We have discussed the bene fits and alternatives, as well as the risks which include: bleeding, infe ction, retinal tear or detachment, the need for additional surgery, and lo ss of vision or loss of the eye. We have mutually agreed to proceed with in travitreal injection. The patient is instructed to call or return immedia tely for any worsening vision, pain, redness, flashes, floaters, shadow or c urtain. Procedure Note Procedure: Intravitreal Injection of Oz urdex (Dexamethasone Implant) Diagnosis: Posterior uveitis Surgeon: Marylou Samayoa MD Anesthesia: Topical proparicaine, Subco njunctival lidocaine Eye: LEFT The operative eye was verified and karina ed. A time out was performed to verify the patient, procedure, and namrata ect site. The eye was anesthetized with two drops of topical proparicaine and approximately 0.1 ml of subconjunctival lidocaine. The eye was then prepped with 5% betadine solution. A lid speculum was inserted. Ozurdex was injected through the pars plana. The Ozurdex was verified t o be in the vitreous cavity with indirect ophthalmoscopy. The eye was v erified to be at physiologic pressure. The patient tolerated the pr ocedure well. Drusen of both optic discs 07/30/2018 Overview: Contributes to the appearance of edema, confirmed on FAF L ast Assessment & Plan: Discussed finding - more obvious on fun dus autofluorescence no treatment indicated Encounters Care Team Description Date Type Specialty [place], Marylou Brooke MD Posterior uveitis, bilateral 03/29/2019 Office Visit Ophthalmology from Last 3 Months Social History Date Tobacco Use Types Packs/Day Years Used Current Every Day Smoker Smokeless Tobacco: Never Used Sex Assigned at Date Recorded Not on file Industry Job Start Date Occupation Not on file Not on file Not on file Travel End Travel History Travel Start No recent travel history available. Last Filed Vital Signs Reading Time Taken Comments Vital Sign - - Blood Pressure - - Pulse - - Temperature - - Respiratory Rate - - Oxygen Saturation - - Inhaled Oxygen Concentration 62.6 kg (138 lb) 08/06/2018 10:52 AM CDT Weight 162.6 cm (5' 4") 08/06/2018 10:52 AM CDT Height 23.69 08/06/2018 10:52 AM CDT Body Mass Index Plan of Treatment Health Maintenance Due Date Last Done Comments MEDICARE ANNUAL WELLNESS 1940 VISIT DTAP/TDAP VACCINES (1 - 02/07/1952 Tdap) PHYSICAL (COMPREHENSIVE) 1959 EXAM SHINGLES RECOMBINANT 1991 VACCINE (1 of 2) PNEUMONIA (PCV13/PPSV23) 2006 VACCINES (1 of 2 - PCV13) INFLUENZA VACCINE 10/14/2018 Results Not on filefrom Last 3 Months Insurance Type Payer Benefit Subscriber ID Effective Phone Address Plan / Dates Group Medicare AETNA MEDICARE AETNA xxxxxxxxxxxx [id number] MEDICARE resent PPO Advance Directives Patient [place] [employer] Explanation Type Date Recorded Advance Directive/DPOA
--- OUTSIDE RECORDS SUMMARY | 2019-05-15 10:11 | XMS REPORT | Encounter Summary ---
Author Author [facility] Organization [facility] Address Unknown Phone Unavailable Care Team Providers Care Aircraft Skin Burnisher Name Role Phone Pricila Clemente MD PCP Reason for Visit * Reason Comments Eye Exam 2 month FUV; Drusen optic d isks OU hx poterior uveitis OU Vision Change Pt presents with "slight" w orsening va OS Spots and/or Floaters Pt denies any new flashes o r floaters OU Encounter Details Care Team Description Date Type Department Marylou Samayoa MD [address] [place] [address] Posterior uveitis, bilateral 03/29/2019 Office Visit [facility] [address] [place] [address] Social History Date Tobacco Use Types Packs/Day Years Used Current Every Day Smoker Smokeless Tobacco: Never Used Sex Assigned at Date Recorded Not on file Industry Job Start Date Occupation Not on file Not on file Not on file Travel End Travel History Travel Start No recent travel history available. documented as of this encounter Progress Notes * Marylou Samayoa MD - 03/29/2019 10:45 AM REHABILITATION THERAPY AIDE Assessment and Plan: Problem Posterior Uveitis, Bilateral Posterior uveitis, bilateral OCT OD no edema or SRF OS recurrent worsening edema Ozurdex OS, RTC 6wk The findings were reviewed with the patient. We have discussed the options for treatment, including intravitreal injection therapy and observation. I have re commended intravitreal injection with a dexamethasone implant (Ozurdex). We rader ve discussed the benefits and alternatives, as well as the risks which include: bleeding, infection, retinal tear or detachment, the need for additional surgery , and loss of vision or loss of the eye. We have mutually agreed to proceed wit h intravitreal injection. The patient is instructed to call or return immediate ly for any worsening vision, pain, redness, flashes, floaters, shadow or curtain . Procedure Note Procedure: Intravitreal Injection of Ozurdex (Dexamethasone Implant) Diagnosis: Posterior uveitis Surgeon: Marylou Samayoa MD Anesthesia: Topical proparicaine, Subconjunctival lidocaine Eye: LEFT The operative eye was verified and marked. A time out was performed to verify t he patient, procedure, and correct site. The eye was anesthetized with two drops of topical proparicaine and approximately 0.1 ml of subconjunctival lidocaine. The eye was then prepped with 5% betadine solution. A lid speculum was inserte d. Ozurdex was injected through the pars plana. The Ozurdex was verified to be in the vitreous cavity with indirect ophthalmoscopy. The eye was verified to be at physiologic pressure. The patient tolerated the procedure well. HPI: Exam: Base Eye Exam Visual Acuity (Snellen - Linear) Right Left Dist sc 20/25 +1 20/30 -2 Tonometry (Tonopen, 10:34 AM) Right Left Pressure 18 18 Pupils Dark APD Right 3 0 Left 3 0 Visual Zamora Left Right Full Full Neuro/Psych Oriented x3: Yes Mood/Affect: Normal Dilation Both eyes: 1.0% Tropicamide, 2.5% Phenylephrine @ 10:37 AM BILITATION THERAPY AIDE documented in this encounter Plan of Treatment Order Schedule Name Type Priority Associated Diag noses Ordered: 03/29/2019 MN INTRAVITREAL NJX MN Charge Routine Posterior uveitis, PHARMACOLOGIC AGT SPX bilateral Ordered: 03/29/2019 SCAN COMP OPHTHAL DIAG Ophthalmology Routine Posteri or uveitis, IMG, ANT SEG & MACULA bilateral documented as of this encounter Visit Diagnoses Diagnosis Posterior uveitis, bilateral Chorioretinitis, unspecified * Assessment & Plan Note - Marylou Samayoa MD - 03/29/2019 11:06 AM REHABILITATION THERAPY AIDE Associated Problem(s): Posterior uveitis, bilateral OCT OD no edema or SRF OS recurrent worsening edema Ozurdex OS, RTC 6wk The findings were reviewed with the patient. We have discussed the options for treatment, including intravitreal injection therapy and observation. I have re commended intravitreal injection with a dexamethasone implant (Ozurdex). We raedr ve discussed the benefits and alternatives, as well as the risks which include: bleeding, infection, retinal tear or detachment, the need for additional surgery , and loss of vision or loss of the eye. We have mutually agreed to proceed wit h intravitreal injection. The patient is instructed to call or return immediate ly for any worsening vision, pain, redness, flashes, floaters, shadow or curtain . Procedure Note Procedure: Intravitreal Injection of Ozurdex (Dexamethasone Implant) Diagnosis: Posterior uveitis Surgeon: Marylou Samayoa MD Anesthesia: Topical proparicaine, Subconjunctival lidocaine Eye: LEFT The operative eye was verified and marked. A time out was performed to verify t he patient, procedure, and correct site. The eye was anesthetized with two drops of topical proparicaine and approximately 0.1 ml of subconjunctival lidocaine. The eye was then prepped with 5% betadine solution. A lid speculum was inserte d. Ozurdex was injected through the pars plana. The Ozurdex was verified to be in the vitreous cavity with indirect ophthalmoscopy. The eye was verified to be at physiologic pressure. The patient tolerated the procedure well. BILITATION THERAPY AIDE documented in this encounter Administered Medications Action Date Dose Rate Site Medication Order MAR Action 03/29/2019 11:19 AM REHABILITATION THERAPY AIDE 0.7 mg Eye, Lef t dexamethasone(+) (OZURDEX) intravitreal Given implant 0.7 mg 0.7 mg, Left Eye, ONCE, 1 dose, 03/29/19 at 1215 documented in this encounter
--- OUTSIDE RECORDS SUMMARY | 2019-05-15 10:11 | XMS REPORT | Encounter Summary ---
Author Author [facility] Organization [facility] Address Unknown Phone Unavailable Care Team Providers Care Wall Mirror Department Supervisor Name Role Phone Pricila Clemente MD PCP Reason for Visit * Reason Comments Eye Exam 2 month FUV; Posterior Uvei tis OU Vision Change Pt states va has been stabl e OU. Pt c/o watering "of a morning" OU Spots and/or Floaters Pt denies any new flashes o r floaters OU * Consult, Test & Treat (Routine) Referred By Contact Referred To Contact Status Reason Specialty Diagnoses / Procedures Marylou Samayoa MD [address] [place] [address] Marylou Samayoa MD [address] [place] [address] Pending Review Ophthalmology Diagnoses [address] INJECTION AFLIBERCEPT, 1 MG RETURN PATIENT Encounter Details Care Team Description Date Type Department Marylou Samayoa MD [address] [place] [address] [phone] Drusen of both optic discs (Primary Dx); Shruthi-Faith syndrome; Floppy eyelid syndrome of both eyes; Entropion of both lower eyelids; Trichiasis of eyelid of both eyes; Posterior uveitis, bilateral 01/24/2019 Office Visit [facility] [address] [place] [address] Social History Date Tobacco Use [...] Progress Notes * Marylou Samayoa MD - 01/24/2019 10:45 AM INGREDIENT MIXER Assessment and Plan: Problem 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 Bar. There is trace macular edema in the le ft eye and his VA remains 20/30. He has not noticed any blurriness or distortio n. We discussed the options for treatment, including observation and steroid tr eatment, which he responded to nicely 6 months ago. Since his VA is preserved a nd he is asymptomatic, he defers intravitreal injection. We discussed the poten tial (albeit limited) role of topical steroids, which he tried in the past prior to seeing me. We discussed a trial of topical steroids with predniosolone, go ch he as at home, QID OS until I see him again after the holidays. He will retu rn for worsening vision or distoriton. Trichiasis of eyelid of both eyes Has had epilation in the last Patient waking up with symptoms of tearing and watering, with FB sensation Discussed findings, option for referral to oculoplastics At this time, he elects to monitor and will let me know if it starts to bother h im more. There is no corneal abrasion or erosion today. Floppy eyelid syndrome of both eyes I discussed the findings and the association with obstructive sleep apnea. I re commended he discuss sleep study with his PCP. HPI: Exam: Base Eye Exam Visual Acuity (Snellen - Linear) Right Left Dist sc 20/25 +2 20/30 OS "watering" while checking va Tonometry (Tonopen, 10:32 AM) Right Left Pressure 20 19 Pupils Dark APD Right 3 0 Left 3 0 Neuro/Psych Oriented x3: Yes Mood/Affect: Normal Dilation Both eyes: 1.0% Tropicamide, 2.5% Phenylephrine @ 10:32 AM Slit Lamp and Fundus Exam Slit Lamp Exam Right Left Lids/Lashes lower lid laxity with entropion and trichiasis lower lid laxity wit h entropion and trichiasi Conjunctiva/Sclera White and quiet White and quiet Cornea Clear Clear Anterior Chamber deep, quiet deep, quiet Iris Flat Flat Lens PCIOL PCIOL Vitreous syneresis, no vitritis syneresis, no vitritis Fundus Exam Right Left Disc drusen, appears crowded drusen, apperaas elevated but no obscuration of v essels C/D Ratio 0.1 0.1 Macula no clinical thickening tr nasal thickening Vessels Normal caliber and number Normal caliber and number Periphery Attached, no breaks or tears Attached, no breaks or tears EDIENT MIXER documented in this encounter Plan of Treatment Order Schedule Name Type Priority Associated Diag noses Ordered: 01/24/2019 SCAN COMP OPHTHAL DIAG Ophthalmology Routine Shruthi- Faith syndrome IMG, ANT SEG & MACULA Posterior uveitis, bilateral documented as of this encounter Visit Diagnoses Diagnosis Drusen of both optic discs - Primary Drusen of optic disc 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 I re commended he discuss sleep study with his PCP. EDIENT MIXER * Assessment & Plan Note - Marylou Samayoa MD - 01/24/2019 11:43 AM INGREDIENT MIXER Associated Problem(s): Trichiasis of eyelid of both eyes Has had epilation in the last Patient waking up with symptoms of tearing and watering, with FB sensation Discussed findings, option for referral to oculoplastics At this time, he elects to monitor and will let me know if it starts to bother h im more. There is no corneal abrasion or erosion today. 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 Bar. There is trace macular edema in the le ft eye and his VA remains 20/30. He has not noticed any blurriness or distortio n. We discussed the options for treatment, including observation and steroid tr eatment, which he responded to nicely 6 months ago. Since his VA is preserved a nd he is asymptomatic, he defers intravitreal injection. We discussed the poten tial (albeit limited) role of topical steroids, which he tried in the past prior to seeing me. We discussed a trial of topical steroids with predniosolonego ch he as at home, QID OS until I see him again after the holidays. He will retu rn for worsening vision or distoriton. EDIENT MIXER documented in this encounter
--- OUTSIDE RECORDS SUMMARY | 2019-05-15 10:11 | XMS REPORT | Encounter Summary ---
Author Author [facility] Organization [facility] Address Unknown Phone Unavailable Care Team Providers Care Phlebotomy Manager Name Role Phone Pricila Clemente MD PCP Reason for Visit * Reason Comments Eye Exam 8 week FUV; Posterior uveit is OU Vision Change Pt states va is pretty good and has been stable over the last 8 weeks Spots and/or Floaters Pt denies any new flashes o r floaters OU Blood Sugar Readings BS averages 130s * Consult, Test & Treat (Routine) Referred By Contact Referred To Contact Status Reason Specialty Diagnoses / Procedures Marylou Samayoa MD [address] [place] [address] Marylou Samayoa MD [address] [place] [address] Pending Review Ophthalmology Diagnoses 8 wk P rocedures DC INJECTION AFLIBERCEPT, 1 MG RETURN PATIENT Encounter Details Care Team Description Date Type Department Marylou Samayoa MD [address] [place] [address] [phone] Posterior uveitis, bilateral 11/23/2018 Office Visit [facility] [address] [place] [address] Social History Date Tobacco Use [...] Progress Notes * Marylou Samayoa MD - 11/23/2018 10:45 AM CDT There is no height or weight on file to calculate BMI. OCT OD no edema OS preserved contour, no edema Assessment and Plan: Problem Posterior Uveitis, Bilateral Posterior uveitis, bilateral Edema remains controlled as Ozurdex dissolves (3 mo post ozurdex) Monitor for recurrence of edema Amsler grid given with instructions for use regularly RTC 2 mo, sooner if changes documented in this encounter Plan of Treatment Order Schedule Name Type Priority Associated Diag noses Ordered: 11/23/2018 SCAN COMP OPHTHAL DIAG Ophthalmology Routine Posteri or uveitis, IMG, ANT SEG & MACULA bilateral documented as of this encounter Visit Diagnoses Diagnosis Posterior uveitis, bilateral Chorioretinitis, unspecified * Assessment & Plan Note - Marylou Samayoa MD - 11/23/2018 12:54 PM CDT Associated Problem(s): Posterior uveitis, bilateral Edema remains controlled as Ozurdex dissolves (3 mo post ozurdex) Monitor for recurrence of edema Amsler grid given with instructions for use regularly RTC 2 mo, sooner if changes documented in this encounter
--- OUTSIDE RECORDS SUMMARY | 2019-05-15 10:12 | XMS REPORT | Continuity of Care Document ---
Author Organization Unknown Address Unknown Phone Unavailable Allergies Active Description Code Type Severity Reaction Onset Reported/Identified Relationship to Patient Clinical Status Yes No Known Drug Allergies [id number] Drug Allergy Unknown N/A 06/02/2010 Medications There is no data. Problems Date Dx Coded Attending Type Code Diagnosis Diagnosed By 01/24/2015 BAIMA, CRIS L RETAIL AREA MANAGER Ot F17.200 01/24/2015 BAIMA, CRIS L RETAIL AREA MANAGER Ot I 10 01/24/2015 BAIMA, CRIS L RETAIL AREA MANAGER Ot I25.10 01/24/2015 BAIMA, CRIS L RETAIL AREA MANAGER Ot I45.10 01/24/2015 BAIMA, CRIS L RETAIL AREA MANAGER Ot I73.9 01/24/2015 BAIMA, CRIS L RETAIL AREA MANAGER Ot I77.1 01/24/2015 BAIMA, CRIS L RETAIL AREA MANAGER Ot I77.9 01/24/2015 BAIMA, CRIS L RETAIL AREA MANAGER Ot R06.09 01/24/2015 BAIMA, CRIS L RETAIL AREA MANAGER Ot R78.5 02/12/2015 BAIMA, CRIS L RETAIL AREA MANAGER Ot E78.5 02/12/2015 BAIMA, RCIS L RETAIL AREA MANAGER Ot F17.200 02/12/2015 BAIMA, CRIS L RETAIL AREA MANAGER Ot I 10 02/12/2015 BAIMA, CRIS L RETAIL AREA MANAGER Ot I25.10 02/12/2015 BAIMA, CRIS L RETAIL AREA MANAGER Ot I45.10 02/12/2015 BAIMA, CRIS L RETAIL AREA MANAGER Ot I73.9 02/12/2015 BAIMA, CRIS L RETAIL AREA MANAGER Ot I77.1 02/12/2015 BAIMA, CRIS L RETAIL AREA MANAGER Ot I77.9 02/12/2015 BAIMA, CRIS L RETAIL AREA MANAGER Ot R06.09 03/26/2016 YOSSI HO, JESSIE Carter Ot J90 PLEURAL EFFUSION, NOT ELSEWHERE CLASSIFI 03/26/2016 YOSSI HO, JESSIE Carter Ot 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, PART UNSP, W/O PERF 03/26/2016 JESSIE SY MD Ot R31.0 GROSS HEMATURIA 03/26/2016 JESSIE SY MD Ot J90 PLEURAL EFFUSION, NOT ELSEWHERE CLASSIFI 03/26/2016 JESSIE SY MD Ot 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, PART UNSP, W/O PERF 03/26/2016 JESSIE YS MD Ot R31.0 GROSS HEMATURIA 04/07/2016 Ot 443.9 STEVE PH VASCULAR DIS NOS 04/07/2016 Ot 250.00 LUIS ALFREDO B JEFF WO COMPL, TYPE II OR UNSPEC TY 04/07/2016 Ot 414.00 COR ON ATHEROSCLER NOS TYPE VESSEL, NATIV 04/07/2016 Ot 607.84 IMP OTENCE, ORGANIC ORIGN 04/07/2016 Ot 780.79 OTH MALAISE FATIGUE 04/07/2016 Ot 410.40 AC MYOCARD INFRCT OTH INFERIOR WALL,EPIS 04/07/2016 Ot 414.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 04/07/2016 Ot 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 W O CEREBRAL IN 04/07/2016 Ot 272.4 HYPE RLIPIDEMIA NEC/NOS 04/07/2016 Ot 414.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 04/07/2016 Ot V58.69 OTH MED,LT,CURRENT USE 04/07/2016 Ot V76.44 SCR EEN MAL NEOP- PROSTATE 04/07/2016 GLADYS ORONA DO Ot 793.11 SOLITARY PULMONARY NODULE 04/07/2016 GLADYS ORONA DO Ot V81.5 SCREEN FOR NEPHROPATHY 04/07/2016 GLADYS ORONA DO S Ot 599.71 GROSS HEMATURIA 04/07/2016 CRIS MCKEON RETAIL AREA MANAGER Ot F17.200 NICOTINE DEPENDENCE, UNSPECIFIED, UNCOMP 04/07/2016 CRIS MCKEON RETAIL AREA MANAGER Ot I 10 ESSENTIAL (PRIMARY) HYPERTENSION 04/07/2016 CRIS MCKEON RETAIL AREA MANAGER Ot I25.10 ATHSCL HEART DISEASE OF [place] CORONARY 04/07/2016 CRIS MCKEON RETAIL AREA MANAGER Ot I45.10 UNSPECIFIED RIGHT BUNDLE-BRANCH BLOCK 04/07/2016 CRIS MCKEON RETAIL AREA MANAGER Ot I73.9 PERIPHERAL VASCULAR DISEASE, UNSPECIFIED 04/07/2016 CRIS MCKEON RETAIL AREA MANAGER Ot I77.1 STRICTURE OF ARTERY 04/07/2016 CRIS MCKEON L RETAIL AREA MANAGER Ot I77.9 DISORDER OF ARTERIES AND ARTERIOLES, UNS 04/07/2016 CRIS MCKEON L RETAIL AREA MANAGER Ot R06.09 OTHER FORMS OF DYSPNEA 04/07/2016 FLETCHERCRIS FREEMAN L RETAIL AREA MANAGER Ot R78.5 FINDING OF OTHER PSYCHOTROPIC DRUG IN BL 04/07/2016 LINDA CRIS L RETAIL AREA MANAGER Ot E78.5 HYPERLIPIDEMIA, UNSPECIFIED 04/07/2016 FLETCHERPETE CRIS L RETAIL AREA MANAGER Ot F17.200 NICOTINE DEPENDENCE, UNSPECIFIED, UNCOMP 04/07/2016 FLETCHERPETE CRIS L RETAIL AREA MANAGER Ot I 10 ESSENTIAL (PRIMARY) HYPERTENSION 04/07/2016 FLETCHERPETE CRIS L RETAIL AREA MANAGER Ot I25.10 ATHSCL HEART DISEASE OF [place] CORONARY 04/07/2016 FLETCHERPETE CRIS L RETAIL AREA MANAGER Ot I45.10 UNSPECIFIED RIGHT BUNDLE-BRANCH BLOCK 04/07/2016 FLETCHERPETE CRIS L RETAIL AREA MANAGER Ot I73.9 PERIPHERAL VASCULAR DISEASE, UNSPECIFIED 04/07/2016 LINDA CRIS Jack RETAIL AREA MANAGER Ot I77.1 STRICTURE OF ARTERY 04/07/2016 CRIS MCKEON RETAIL AREA MANAGER Ot I77.9 DISORDER OF ARTERIES AND ARTERIOLES, UNS 04/07/2016 CRIS MCKEON RETAIL AREA MANAGER Ot R06.09 OTHER FORMS OF DYSPNEA 04/07/2016 YOSSI HO, JESSIE Carter Ot J90 PLEURAL EFFUSION, NOT ELSEWHERE CLASSIFI 04/07/2016 YOSSI HO, JESSIE Carter Ot 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, PART UNSP, W/O PERF 04/07/2016 YOSSI HO, JESSIE Carter Ot R31.0 GROSS HEMATURIA 04/11/2016 GLADYS ORONA DO S Ot E11.51 TYPE 2 DIABETES W DIABETIC PERIPHERAL AN 04/11/2016 GLADYS ORONA DO S Ot E78.5 HYPERLIPIDEMIA, UNSPECIFIED 04/11/2016 GLADYS ORONA DO S Ot F17.210 NICOTINE DEPENDENCE, CIGARETTES, UNCOMPL 04/11/2016 GLADYS ORONA DO S Ot I11.0 HYPERTENSIVE HEART DISEASE WITH HEART FA 04/11/2016 ORENDER DO, GLADYS S Ot I25.10 ATHSCL HEART DISEASE OF [place] CORONARY 04/11/2016 ALYCENDSARAHI BURGOS DOQUELINE S Ot I48.0 PAROXYSMAL ATRIAL FIBRILLATION 04/11/2016 ALYCENDSARAHI BURGOS DOQUELINE S Ot I50.41 ACUTE COMBINED SYSTOLIC AND DIASTOLIC (C 04/11/2016 ALYCENDSARAHI BURGOS DOQUELINE S Ot I70.213 ATHSCL [place] ARTERIES OF EXTRM W INTRMT 04/11/2016 ALYCENDSARAHI BURGOS DOQUELINE S Ot J18.9 PNEUMONIA, UNSPECIFIED ORGANISM 04/11/2016 SARAHI ORONA DOQUELINE S Ot N39.0 URINARY TRACT INFECTION, SITE NOT SPECIF 04/11/2016 KAREN ORONA DOLINE S Ot N40.1 BENIGN PROSTATIC HYPERPLASIA WITH LOWER 04/11/2016 KAREN ORONA DOLINE S Ot R31.9 HEMATURIA, UNSPECIFIED 04/11/2016 KAREN ORONA DOLINE S Ot R53.1 WEAKNESS 04/11/2016 KAREN ORONA DOLINE S Ot Z91.81 HISTORY OF FALLING 04/11/2016 SARAHI ORONA DOQUELINE S Ot Z95.0 PRESENCE OF CARDIAC PACEMAKER 04/11/2016 SARAHI ORONA DOQUELINE S Ot Z95.820 PERIPHERAL VASCULAR ANGIOPLASTY STATUS W 04/16/2016 KAREN ORONA DOLINE S Ot E11.51 TYPE 2 DIABETES W DIABETIC PERIPHERAL AN 04/16/2016 KAREN ORONA DOLINE S Ot E78.5 HYPERLIPIDEMIA, UNSPECIFIED 04/16/2016 KAREN ORONA DOLINE S Ot F17.210 NICOTINE DEPENDENCE, CIGARETTES, UNCOMPL 04/16/2016 SARAHI ORONA DOQUELINE S Ot I11.0 HYPERTENSIVE HEART DISEASE WITH HEART FA 04/16/2016 SARAHI ORONA DOQUELINE S Ot I25.10 ATHSCL HEART DISEASE OF [place] CORONARY 04/16/2016 ALYCENDSARAHI BURGOS DOQUELINE S Ot I48.0 PAROXYSMAL ATRIAL FIBRILLATION 04/16/2016 ALYCENDAUBREY DO GLADYS S Ot I50.41 ACUTE COMBINED SYSTOLIC AND DIASTOLIC (C 04/16/2016 ALYCENDSARAHI BURGOS DOQUELINE S Ot I70.213 ATHSCL [place] ARTERIES OF EXTRM W INTRMT 04/16/2016 ALYCENDSARAHI BURGOS DOQUELINE S Ot J18.9 PNEUMONIA, UNSPECIFIED ORGANISM 04/16/2016 ALYCENDER DOKARENGLADYS S Ot N39.0 URINARY TRACT INFECTION, SITE NOT SPECIF 04/16/2016 ALYCENDER KAREN WARELINE S Ot N40.1 BENIGN PROSTATIC HYPERPLASIA WITH LOWER 04/16/2016 ALYCENDER DOKARENGLADYS S Ot R31.9 HEMATURIA, UNSPECIFIED 04/16/2016 ALYCENDER KAREN WARELINE S Ot R53.1 WEAKNESS 04/16/2016 KAREN ORONA DOLINE S Ot Z91.81 HISTORY OF FALLING 04/16/2016 ALYCENDER DOSARAHIGLADYS S Ot Z95.0 PRESENCE OF CARDIAC PACEMAKER 04/16/2016 SARAHI ORONA DOQUELINE S Ot Z95.820 PERIPHERAL VASCULAR ANGIOPLASTY STATUS W 04/16/2016 KAREN ORONA DOLINE S Ot E11.51 TYPE 2 DIABETES W DIABETIC PERIPHERAL AN 04/16/2016 KAREN ORONA DOLINE S Ot E78.5 HYPERLIPIDEMIA, UNSPECIFIED 04/16/2016 KAREN ORONA DOLINE S Ot E86.0 DEHYDRATION 04/16/2016 SARAHI ORONA DOQUELINE S Ot F17.210 NICOTINE DEPENDENCE, CIGARETTES, UNCOMPL 04/16/2016 KAREN ORONA DOLINE S Ot I11.0 HYPERTENSIVE HEART DISEASE WITH HEART FA 04/16/2016 KAREN ORONA DOLINE S Ot I25.10 ATHSCL HEART DISEASE OF [place] CORONARY 04/16/2016 KAREN ORONA DOLINE S Ot I48.0 PAROXYSMAL ATRIAL FIBRILLATION 04/16/2016 KAREN ORONA DOLINE S Ot I50.41 ACUTE COMBINED SYSTOLIC AND DIASTOLIC (C 04/16/2016 ALYCENDER DO GLADYS S Ot I70.213 ATHSCL [place] ARTERIES OF EXTRM W INTRMT 04/16/2016 KAREN ORONA DOLINE S Ot J18.9 PNEUMONIA, UNSPECIFIED ORGANISM 04/16/2016 KAREN ORONA DOLINE S Ot N39.0 URINARY TRACT INFECTION, SITE NOT SPECIF 04/16/2016 ALYCENDKAREN BURGOS DOLINE S Ot N40.1 BENIGN PROSTATIC HYPERPLASIA WITH LOWER 04/16/2016 ALYCENDER DOKARENGLADYS S Ot R31.9 HEMATURIA, UNSPECIFIED 04/16/2016 ALYCENDER KAREN WARELINE S Ot R33.8 OTHER RETENTION OF URINE 04/16/2016 GLADYS ORONA DO S Ot R53.1 WEAKNESS 04/16/2016 KAREN ORONA DOLINE S Ot R60.0 LOCALIZED EDEMA 04/16/2016 ALYCENDKAREN BURGOS DOLINE S Ot Z91.81 HISTORY OF FALLING 04/16/2016 KAREN ORONA DOLINE S Ot Z95.0 PRESENCE OF CARDIAC PACEMAKER 04/16/2016 KAREN ORONA DOLINE S Ot Z95.820 PERIPHERAL VASCULAR ANGIOPLASTY STATUS W 04/16/2016 KAREN ORONA DOLINE S Ot E11.51 TYPE 2 DIABETES W DIABETIC PERIPHERAL AN 04/16/2016 KAREN ORONA DOLINE S Ot E78.5 HYPERLIPIDEMIA, UNSPECIFIED 04/16/2016 SARAHI ORNOA DOQUELINE S Ot F17.210 NICOTINE DEPENDENCE, CIGARETTES, UNCOMPL 04/16/2016 KAREN ORONA DOLINE S Ot I11.0 HYPERTENSIVE HEART DISEASE WITH HEART FA 04/16/2016 KAREN ORONA DOLINE S Ot I25.10 ATHSCL HEART DISEASE OF [place] CORONARY 04/16/2016 KAREN ORONA DOLINE S Ot I48.0 PAROXYSMAL ATRIAL FIBRILLATION 04/16/2016 KAREN ORONA DOLINE S Ot I50.41 ACUTE COMBINED SYSTOLIC AND DIASTOLIC (C 04/16/2016 KAREN ORONA DOLINE S Ot I70.213 ATHSCL [place] ARTERIES OF EXTRM W INTRMT 04/16/2016 KAREN ORONA DOLINE S Ot J18.9 PNEUMONIA, UNSPECIFIED ORGANISM 04/16/2016 KAREN ORONA DOLINE S Ot N39.0 URINARY TRACT INFECTION, SITE NOT SPECIF 04/16/2016 KAREN ORONA DOLINE S Ot N40.1 BENIGN PROSTATIC HYPERPLASIA WITH LOWER 04/16/2016 KAREN ORONA DOLINE S Ot R31.9 HEMATURIA, UNSPECIFIED 04/16/2016 KAREN ORONA DOLINE S Ot R53.1 WEAKNESS 04/16/2016 KAREN ORONA DOLINE S Ot Z91.81 HISTORY OF FALLING 04/16/2016 KAREN ORONA DOLINE S Ot Z95.0 PRESENCE OF CARDIAC PACEMAKER 04/16/2016 GLADYS ORONA DO Ot Z95.820 PERIPHERAL VASCULAR ANGIOPLASTY STATUS W 04/17/2016 FLETCHERCRIS FREEMAN RETAIL AREA MANAGER Ot E78.5 HYPERLIPIDEMIA, UNSPECIFIED 04/17/2016 FLETCHERCRIS FREEMAN RETAIL AREA MANAGER Ot F17.200 NICOTINE DEPENDENCE, UNSPECIFIED, UNCOMP 04/17/2016 FLETCHERCRIS FREEMAN RETAIL AREA MANAGER Ot I 10 ESSENTIAL (PRIMARY) HYPERTENSION 04/17/2016 LINDA CRIS Jack RETAIL AREA MANAGER Ot I25.10 ATHSCL HEART DISEASE OF [place] CORONARY 04/17/2016 LINDA CRIS L RETAIL AREA MANAGER Ot I45.10 UNSPECIFIED RIGHT BUNDLE-BRANCH BLOCK 04/17/2016 LINDA CRIS Guero RETAIL AREA MANAGER Ot I73.9 PERIPHERAL VASCULAR DISEASE, UNSPECIFIED 04/17/2016 LINDA CRIS Guero RETAIL AREA MANAGER Ot I77.1 STRICTURE OF ARTERY 04/17/2016 CRIS MCKEON RETAIL AREA MANAGER Ot I77.9 DISORDER OF ARTERIES AND ARTERIOLES, UNS 04/17/2016 LINDA CRIS L RETAIL AREA MANAGER Ot R06.09 OTHER FORMS OF DYSPNEA 04/17/2016 JESSIE SY MD Ot J90 PLEURAL EFFUSION, NOT ELSEWHERE CLASSIFI 04/17/2016 JESSIE SY MD Ot 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, PART UNSP, W/O PERF 04/17/2016 JESSIE SY MD Ot R31.0 GROSS HEMATURIA 04/19/2016 DEBI VELEZ MD, Ot E11.649 TYPE 2 DIABETES MELLITUS WITH HYPOGLYCEM 04/19/2016 DEBI VELEZ MD, Ot I48.2 CHRONIC ATRIAL FIBRILLATION 04/19/2016 DEBI VELEZ MD, Ot N39.0 URINARY TRACT INFECTION, SITE NOT SPECIF 04/19/2016 DEBI VELEZ MD Ot Z79.82 PRISON (CURRENT) USE OF ASPIRIN 04/19/2016 DEBI VELEZ MD Ot Z79.84 PRISON (CURRENT) USE OF ORAL HYPOGLYC 04/19/2016 DEBI VELEZ MD, Ot Z79.899 OTHER PRISON (CURRENT) DRUG THERAPY 04/19/2016 DEBI VELEZ MD Ot Z95.0 PRESENCE OF CARDIAC PACEMAKER 04/20/2016 AGUSTIN MD, DEBI D Ot E11.649 TYPE 2 DIABETES MELLITUS WITH HYPOGLYCEM 04/20/2016 DEBI VELEZ MD Ot I48.2 CHRONIC ATRIAL FIBRILLATION 04/20/2016 DEBI VELEZ MD, Ot N39.0 URINARY TRACT INFECTION, SITE NOT SPECIF 04/20/2016 DEBI VELEZ MD, Ot Z79.82 BALLOON DIPPER (CURRENT) USE OF ASPIRIN 04/20/2016 DEBI VELEZ MD, Ot Z79.84 PRISON (CURRENT) USE OF ORAL HYPOGLYC 04/20/2016 DEBI VELEZ MD, Ot Z79.899 OTHER PRISON (CURRENT) DRUG THERAPY 04/20/2016 DEBI VELEZ MD, Ot Z95.0 PRESENCE OF CARDIAC PACEMAKER 04/22/2016 JESSIE SY MD Ot J90 PLEURAL EFFUSION, NOT ELSEWHERE CLASSIFI 04/22/2016 JESSIE SY MD Ot 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, PART UNSP, W/O PERF 04/22/2016 JESSIE SY MD Ot R31.0 GROSS HEMATURIA 04/23/2016 GLADYS ORONA DO S Ot D62 ACUTE POSTHEMORRHAGIC ANEMIA 04/23/2016 GLADYS ORONA DO S Ot E11.649 TYPE 2 DIABETES MELLITUS WITH HYPOGLYCEM 04/23/2016 GLADYS ORONA DO S Ot E78.00 PURE HYPERCHOLESTEROLEMIA, UNSPECIFIED 04/23/2016 KAREN ORONA DOLINE S Ot F17.210 NICOTINE DEPENDENCE, CIGARETTES, UNCOMPL 04/23/2016 KAREN ORONA DOLINE S Ot I11.0 HYPERTENSIVE HEART DISEASE WITH HEART FA 04/23/2016 SARAHI ORONA DOQUELINE S Ot I25.10 ATHSCL HEART DISEASE OF [place] CORONARY 04/23/2016 SARAHI ORONA DOQUELINE S Ot I48.2 CHRONIC ATRIAL FIBRILLATION 04/23/2016 SARAHI ORONA DOQUELINE S Ot I50.9 HEART FAILURE, UNSPECIFIED 04/23/2016 SARAHI ORONA DOQUELINE S Ot J44.9 CHRONIC OBSTRUCTIVE PULMONARY DISEASE, U 04/23/2016 KAREN ORONA DOLINE S Ot K21.9 GASTRO-ESOPHAGEAL REFLUX DISEASE WITHOUT 04/23/2016 KAREN ORONA DOLINE S Ot L92.1 NECROBIOSIS LIPOIDICA, NOT ELSEWHERE CLA 04/23/2016 KAREN ORONA DOLINE S Ot N40.1 BENIGN PROSTATIC HYPERPLASIA WITH LOWER 04/23/2016 GLADYS ORONA DO S Ot R31.9 HEMATURIA, UNSPECIFIED 04/23/2016 KAREN ORONA DOLINE S Ot R33.8 OTHER RETENTION OF URINE 04/23/2016 GLADYS ORONA DO S Ot R35.0 FREQUENCY OF MICTURITION 04/23/2016 KAREN ORONA DOLINE S Ot R39.11 HESITANCY OF MICTURITION 04/23/2016 KAREN ORONA DOLINE S Ot Z79.01 PRISON (CURRENT) USE OF ANTICOAGULANT 04/23/2016 KAREN ORONA DOLINE S Ot Z91.81 HISTORY OF FALLING 04/23/2016 KAREN ORONA DOLINE S Ot Z95.0 PRESENCE OF CARDIAC PACEMAKER 04/23/2016 GLADYS ORONA DO S Ot D62 ACUTE POSTHEMORRHAGIC ANEMIA 04/23/2016 KAREN ORONA DOLINE S Ot E11.649 TYPE 2 DIABETES MELLITUS WITH HYPOGLYCEM 04/23/2016 KAREN ORONA DOLINE S Ot E78.00 PURE HYPERCHOLESTEROLEMIA, UNSPECIFIED 04/23/2016 KAREN ORONA DOLINE S Ot F17.210 NICOTINE DEPENDENCE, CIGARETTES, UNCOMPL 04/23/2016 KAREN ORONA DOLINE S Ot I11.0 HYPERTENSIVE HEART DISEASE WITH HEART FA 04/23/2016 KAREN ORONA DOLINE S Ot I25.10 ATHSCL HEART DISEASE OF [place] CORONARY 04/23/2016 KAREN ORONA DOLINE S Ot I48.2 CHRONIC ATRIAL FIBRILLATION 04/23/2016 KAREN ORONA DOLINE S Ot I50.9 HEART FAILURE, UNSPECIFIED 04/23/2016 KAREN ORONA DOLINE S Ot J44.9 CHRONIC OBSTRUCTIVE PULMONARY DISEASE, U 04/23/2016 KAREN ORONA DOLINE S Ot K21.9 GASTRO-ESOPHAGEAL REFLUX DISEASE WITHOUT 04/23/2016 KAREN ORONA DOLINE S Ot L92.1 NECROBIOSIS LIPOIDICA, NOT ELSEWHERE CLA 04/23/2016 GLADYS ORONA DO S Ot N40.1 BENIGN PROSTATIC HYPERPLASIA WITH LOWER 04/23/2016 ALYCENDER DOKARENGLADYS S Ot R31.9 HEMATURIA, UNSPECIFIED 04/23/2016 ALYCENDER KAREN WARELINE S Ot R33.8 OTHER RETENTION OF URINE 04/23/2016 KAREN ORONA DOLINE S Ot R35.0 FREQUENCY OF MICTURITION 04/23/2016 KAREN ORONA DOLINE S Ot R39.11 HESITANCY OF MICTURITION 04/23/2016 KAREN ORONA DOLINE S Ot Z79.01 BALLOON DIPPER (CURRENT) USE OF ANTICOAGULANT 04/23/2016 KAREN ORONA DOLINE S Ot Z91.81 HISTORY OF FALLING 04/23/2016 KAREN ORONA DOLINE S Ot Z95.0 PRESENCE OF CARDIAC PACEMAKER 04/28/2016 KAREN ORONA DOLINE S Ot D62 ACUTE POSTHEMORRHAGIC ANEMIA 04/28/2016 KAREN ORONA DOLINE S Ot E11.649 TYPE 2 DIABETES MELLITUS WITH HYPOGLYCEM 04/28/2016 KAREN ORONA DOLINE S Ot E78.00 PURE HYPERCHOLESTEROLEMIA, UNSPECIFIED 04/28/2016 KAREN ORONA DOLINE S Ot F17.210 NICOTINE DEPENDENCE, CIGARETTES, UNCOMPL 04/28/2016 KAREN ORONA DOLINE S Ot I11.0 HYPERTENSIVE HEART DISEASE WITH HEART FA 04/28/2016 KAREN ORONA DOLINE S Ot I25.10 ATHSCL HEART DISEASE OF [place] CORONARY 04/28/2016 KAREN ORONA DOLINE S Ot I48.2 CHRONIC ATRIAL FIBRILLATION 04/28/2016 KAREN ORONA DOLINE S Ot I50.9 HEART FAILURE, UNSPECIFIED 04/28/2016 KAREN ORONA DOLINE S Ot J44.9 CHRONIC OBSTRUCTIVE PULMONARY DISEASE, U 04/28/2016 KAREN ORONA DOLINE S Ot K21.9 GASTRO-ESOPHAGEAL REFLUX DISEASE WITHOUT 04/28/2016 KAREN ORONA DOLINE S Ot L92.1 NECROBIOSIS LIPOIDICA, NOT ELSEWHERE CLA 04/28/2016 KAREN ORONA DOLINE S Ot N40.1 BENIGN PROSTATIC HYPERPLASIA WITH LOWER 04/28/2016 ALYCENDER KAREN WARELINE S Ot R31.9 HEMATURIA, UNSPECIFIED 04/28/2016 ADWOA WARE GLADYS S Ot R33.8 OTHER RETENTION OF URINE 04/28/2016 KAREN ORONA DOLINE S Ot R35.0 FREQUENCY OF MICTURITION 04/28/2016 KAREN ORONA DOLINE S Ot R39.11 HESITANCY OF MICTURITION 04/28/2016 SARAHI ORONA DOQUELINE S Ot Z79.01 BALLOON DIPPER (CURRENT) USE OF ANTICOAGULANT 04/28/2016 KAREN ORONA DOLINE S Ot Z91.81 HISTORY OF FALLING 04/28/2016 ADWOA WARE GLADYS S Ot Z95.0 PRESENCE OF CARDIAC PACEMAKER 04/28/2016 KAREN ORONA DOLINE S Ot D62 ACUTE POSTHEMORRHAGIC ANEMIA 04/28/2016 KAREN ORONA DOLINE S Ot E11.649 TYPE 2 DIABETES MELLITUS WITH HYPOGLYCEM 04/28/2016 KAREN ORONA DOLINE S Ot E78.00 PURE HYPERCHOLESTEROLEMIA, UNSPECIFIED 04/28/2016 KAREN ORONA DOLINE S Ot F17.210 NICOTINE DEPENDENCE, CIGARETTES, UNCOMPL 04/28/2016 ADWOA WARE GLADYS S Ot I11.0 HYPERTENSIVE HEART DISEASE WITH HEART FA 04/28/2016 KAREN ORONA DOLINE S Ot I25.10 ATHSCL HEART DISEASE OF [place] CORONARY 04/28/2016 ADWOA WARE GLADYS S Ot I48.2 CHRONIC ATRIAL FIBRILLATION 04/28/2016 SARAHI ORONA DOQUELINE S Ot I50.9 HEART FAILURE, UNSPECIFIED 04/28/2016 KAREN ORONA DOLINE S Ot J44.9 CHRONIC OBSTRUCTIVE PULMONARY DISEASE, U 04/28/2016 KAREN ORONA DOLINE S Ot K21.9 GASTRO-ESOPHAGEAL REFLUX DISEASE WITHOUT 04/28/2016 KAREN ORONA DOLINE S Ot L92.1 NECROBIOSIS LIPOIDICA, NOT ELSEWHERE CLA 04/28/2016 KAREN ORONA DOLINE S Ot N40.1 BENIGN PROSTATIC HYPERPLASIA WITH LOWER 04/28/2016 ALYCENDSARAHI BURGOS DOQUELINE S Ot R31.9 HEMATURIA, UNSPECIFIED 04/28/2016 KAREN ORONA DOLINE S Ot R33.8 OTHER RETENTION OF URINE 04/28/2016 SARAHI ORONA DOQUELINE S Ot R35.0 FREQUENCY OF MICTURITION 04/28/2016 GLADYS ORONA DO S Ot R39.11 HESITANCY OF MICTURITION 04/28/2016 GLADYS ORONA DO S Ot Z79.01 BALLOON DIPPER (CURRENT) USE OF ANTICOAGULANT 04/28/2016 KAREN ORONA DOLINE S Ot Z91.81 HISTORY OF FALLING 04/28/2016 GLADYS ORONA DO S Ot Z95.0 PRESENCE OF CARDIAC PACEMAKER 04/29/2016 KAREN ORONA DOLINE S Ot D62 ACUTE POSTHEMORRHAGIC ANEMIA 04/29/2016 KAREN ORONA DOLINE S Ot E11.649 TYPE 2 DIABETES MELLITUS WITH HYPOGLYCEM 04/29/2016 GLADYS ORONA DO S Ot E78.00 PURE HYPERCHOLESTEROLEMIA, UNSPECIFIED 04/29/2016 KAREN ORONA DOLINE S Ot F17.210 NICOTINE DEPENDENCE, CIGARETTES, UNCOMPL 04/29/2016 KAREN ORONA DOLINE S Ot I11.0 HYPERTENSIVE HEART DISEASE WITH HEART FA 04/29/2016 KAREN ORONA DOLINE S Ot I25.10 ATHSCL HEART DISEASE OF [place] CORONARY 04/29/2016 KAREN ORONA DOLINE S Ot I48.2 CHRONIC ATRIAL FIBRILLATION 04/29/2016 KAREN ORONA DOLINE S Ot I50.9 HEART FAILURE, UNSPECIFIED 04/29/2016 KAREN ORONA DOLINE S Ot J44.9 CHRONIC OBSTRUCTIVE PULMONARY DISEASE, U 04/29/2016 GLADYS ORONA DO S Ot K21.9 GASTRO-ESOPHAGEAL REFLUX DISEASE WITHOUT 04/29/2016 KAREN ORONA DOLINE S Ot L92.1 NECROBIOSIS LIPOIDICA, NOT ELSEWHERE CLA 04/29/2016 KAREN ORONA DOLINE S Ot N40.1 BENIGN PROSTATIC HYPERPLASIA WITH LOWER 04/29/2016 GLADYS ORONA DO S Ot R31.9 HEMATURIA, UNSPECIFIED 04/29/2016 KAREN ORONA DOLINE S Ot R33.8 OTHER RETENTION OF URINE 04/29/2016 KAREN ORONA DOLINE S Ot R35.0 FREQUENCY OF MICTURITION 04/29/2016 GLADYS ORONA DO S Ot R39.11 HESITANCY OF MICTURITION 04/29/2016 GLADYS ORNOA DO Ot Z79.01 PRISON (CURRENT) USE OF ANTICOAGULANT 04/29/2016 GLADYS ORONA DO Ot Z91.81 HISTORY OF FALLING 04/29/2016 GLADYS ORONA DO S Ot Z95.0 PRESENCE OF CARDIAC PACEMAKER 04/30/2016 GLADYS ORONA DO Ot D62 ACUTE POSTHEMORRHAGIC ANEMIA 04/30/2016 GLADYS ORONA DO Ot E11.649 TYPE 2 DIABETES MELLITUS WITH HYPOGLYCEM 04/30/2016 GLADYS ORONA DO S Ot E78.00 PURE HYPERCHOLESTEROLEMIA, UNSPECIFIED 04/30/2016 GLADYS ORONA DO S Ot F17.210 NICOTINE DEPENDENCE, CIGARETTES, UNCOMPL 04/30/2016 GLADYS ORONA DO S Ot I11.0 HYPERTENSIVE HEART DISEASE WITH HEART FA 04/30/2016 GLADYS ORONA DO Ot I25.10 ATHSCL HEART DISEASE OF [place] CORONARY 04/30/2016 GLADYS ORONA DO Ot I48.2 CHRONIC ATRIAL FIBRILLATION 04/30/2016 GLADYS ORONA DO S Ot 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 04/30/2016 GLADYS ORONA DO Ot J44.9 CHRONIC OBSTRUCTIVE PULMONARY DISEASE, U 04/30/2016 GLADYS ORONA DO S Ot K21.9 GASTRO-ESOPHAGEAL REFLUX DISEASE WITHOUT 04/30/2016 GLADYS ORONA DO S Ot K29.80 DUODENITIS WITHOUT BLEEDING 04/30/2016 GLADYS ORONA DO Ot K44.9 DIAPHRAGMATIC HERNIA WITHOUT OBSTRUCTION 04/30/2016 GLADYS ORONA DO S Ot K57.30 DVRTCLOS OF LG INT W/O PERFORATION OR AB 04/30/2016 GLADYS ORONA DO Ot K62.1 RECTAL POLYP 04/30/2016 GLADYS ORONA DO Ot K63.5 POLYP OF COLON 04/30/2016 GLADYS ORONA DO Ot K64.8 OTHER HEMORRHOIDS 04/30/2016 GLADYS ORONA DO Ot K92.2 GASTROINTESTINAL HEMORRHAGE, UNSPECIFIED 04/30/2016 GLADYS ORONA DO Ot N40.1 BENIGN PROSTATIC HYPERPLASIA WITH LOWER 04/30/2016 GLADYS ORONA DO Ot R31.9 HEMATURIA, UNSPECIFIED 04/30/2016 GLADYS ORONA DO Ot R33.8 OTHER RETENTION OF URINE 04/30/2016 GLADYS ORONA DO Ot R35.0 FREQUENCY OF MICTURITION 04/30/2016 GLADYS ORONA DO Ot R39.11 HESITANCY OF MICTURITION 04/30/2016 GLADYS ORONA DO Ot Z79.01 BALLOON DIPPER (CURRENT) USE OF ANTICOAGULANT 04/30/2016 GLADYS ORONA DO Ot Z91.81 HISTORY OF FALLING 04/30/2016 GLADYS ORONA DO Ot Z95.0 PRESENCE OF CARDIAC PACEMAKER 05/19/2016 CRIS MCKEON [employer] MANAGER Ot E78.5 HYPERLIPIDEMIA, UNSPECIFIED 05/19/2016 CRIS MCKEON L [employer] MANAGER Ot F17.200 NICOTINE DEPENDENCE, UNSPECIFIED, UNCOMP 05/19/2016 BAIPETE CRIS L RETAIL ARE[employer] MANAGER Ot I 10 ESSENTIAL (PRIMARY) HYPERTENSION 05/19/2016 LINDA CRIS L RETAIL ARE[employer] MANAGER Ot I25.10 ATHSCL HEART DISEASE OF [place] CORONARY 05/19/2016 CRIS MCKEON L [employer]AIL ARE[employer] MANAGER Ot I45.10 UNSPECIFIED RIGHT BUNDLE-BRANCH BLOCK 05/19/2016 MANPREET MCKEONHER L RETAIL AREA MANAGER Ot I73.9 PERIPHERAL VASCULAR DISEASE, UNSPECIFIED 05/19/2016 MANPREET MCKEONHER L RETAIL ARE[employer] MANAGER Ot I77.1 STRICTURE OF ARTERY 05/19/2016 LINDA CRIS L RETAIL AREA MANAGER Ot I77.9 DISORDER OF ARTERIES AND ARTERIOLES, UNS 05/19/2016 MANPREET MCKEONHER L RETAIL ARE[employer] MANAGER Ot R06.09 OTHER FORMS OF DYSPNEA 05/19/2016 YOSSI HO, JESSIE Carter Ot J90 PLEURAL EFFUSION, NOT ELSEWHERE CLASSIFI 05/19/2016 JESSIE SY MD Ot 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, PART UNSP, W/O PERF 05/19/2016 JESSIE SY MD Ot R31.0 GROSS HEMATURIA 07/11/2016 CRIS MCKEON [employer] MANAGER Ot E78.5 HYPERLIPIDEMIA, UNSPECIFIED 07/11/2016 CRIS MCKEON [employer] MANAGER Ot F17.200 NICOTINE DEPENDENCE, UNSPECIFIED, UNCOMP 07/11/2016 CRIS MCKEON L [employer]AIL [employer] MANAGER Ot I 10 ESSENTIAL (PRIMARY) HYPERTENSION 07/11/2016 CRIS MCKEON L RETAIL ARE[employer] MANAGER Ot I25.10 ATHSCL HEART DISEASE OF [place] CORONARY 07/11/2016 CRIS CMKEON RET[employer] MANAGER Ot I45.10 UNSPECIFIED RIGHT BUNDLE-BRANCH BLOCK 07/11/2016 CRIS MCKEON [employer] MANAGER Ot I73.9 PERIPHERAL VASCULAR DISEASE, UNSPECIFIED 07/11/2016 CRIS MCKEON L [employer]AIL [employer] MANAGER Ot I77.1 STRICTURE OF ARTERY 07/11/2016 CRIS MCKEON RET[employer] MANAGER Ot I77.9 DISORDER OF ARTERIES AND ARTERIOLES, UNS 07/11/2016 CRIS MCKEON [employer] MANAGER Ot R06.09 OTHER FORMS OF DYSPNEA 11/14/2016 DEBI VELEZ MD Ot E11.649 TYPE 2 DIABETES MELLITUS WITH HYPOGLYCEM 11/14/2016 DEBI VELEZ MD Ot I48.2 CHRONIC ATRIAL FIBRILLATION 11/14/2016 DEBI VELEZ MD Ot N39.0 URINARY TRACT INFECTION, SITE NOT SPECIF 11/14/2016 DEBI VELEZ MD Ot Z79.82 BALLOON DIPPER (CURRENT) USE OF ASPIRIN 11/14/2016 DEBI VELEZ MD Ot Z79.84 BALLOON DIPPER (CURRENT) USE OF ORAL HYPOGLYC 11/14/2016 DEBI VELEZ MD Ot Z79.899 OTHER PRISON (CURRENT) DRUG THERAPY 11/14/2016 DEBI VELEZ MD Ot Z95.0 PRESENCE OF CARDIAC PACEMAKER 05/05/2017 GLADYS ORONA DO S Ot 793.11 SOLITARY PULMONARY NODULE 05/05/2017 GLADYS ORONA DO S Ot V81.5 SCREEN FOR NEPHROPATHY 05/05/2017 GLADYS ORONA DO S Ot 599.71 GROSS HEMATURIA 05/05/2017 CRIS MCKEON [employer] MANAGER Ot F17.200 NICOTINE DEPENDENCE, UNSPECIFIED, UNCOMP 05/05/2017 CRIS MCKEON [employer] MANAGER Ot I 10 ESSENTIAL (PRIMARY) HYPERTENSION 05/05/2017 CRIS MCKEON [employer] MANAGER Ot I25.10 ATHSCL HEART DISEASE OF [place] CORONARY 05/05/2017 CRIS MCKEON L RETAIL [employer] MANAGER Ot I45.10 UNSPECIFIED RIGHT BUNDLE-BRANCH BLOCK 05/05/2017 CRIS MCKEON L RETAIL [employer] MANAGER Ot I73.9 PERIPHERAL VASCULAR DISEASE, UNSPECIFIED 05/05/2017 CRIS MCKEON L [employer]AIL [employer] MANAGER Ot I77.1 STRICTURE OF ARTERY 05/05/2017 CRIS MCKEON L [employer]AIL ARE[employer] MANAGER Ot I77.9 DISORDER OF ARTERIES AND ARTERIOLES, UNS 05/05/2017 CRIS MCKEON L RETAIL ARE[employer] MANAGER Ot R06.09 OTHER FORMS OF DYSPNEA 05/05/2017 CRIS MCKEON L RETAIL AREA MANAGER Ot R78.5 FINDING OF OTHER PSYCHOTROPIC DRUG IN BL 05/05/2017 LINDA CRIS L RETAIL AREA MANAGER Ot E78.5 HYPERLIPIDEMIA, UNSPECIFIED 05/05/2017 LINDA CRIS L RETAIL AREA MANAGER Ot F17.200 NICOTINE DEPENDENCE, UNSPECIFIED, UNCOMP 05/05/2017 CRIS MCKEON L RETAIL AREA MANAGER Ot I 10 ESSENTIAL (PRIMARY) HYPERTENSION 05/05/2017 FLETCHERCRIS FREEMAN L RETAIL AREA MANAGER Ot I25.10 ATHSCL HEART DISEASE OF [place] CORONARY 05/05/2017 CRIS MCKEON L RETAIL AREA MANAGER Ot I45.10 UNSPECIFIED RIGHT BUNDLE-BRANCH BLOCK 05/05/2017 CRIS MCKEON L RETAIL AREA MANAGER Ot I73.9 PERIPHERAL VASCULAR DISEASE, UNSPECIFIED 05/05/2017 CRIS MCKEON L RETAIL AREA MANAGER Ot I77.1 STRICTURE OF ARTERY 05/05/2017 CRIS MCKEON L RETAIL AREA MANAGER Ot I77.9 DISORDER OF ARTERIES AND ARTERIOLES, UNS 05/05/2017 FLETCHERCRIS FREEMAN L RETAIL AREA MANAGER Ot R06.09 OTHER FORMS OF DYSPNEA 05/05/2017 YOSSI HO, JESSIE Carter Ot J90 PLEURAL EFFUSION, NOT ELSEWHERE CLASSIFI 05/05/2017 JESSIE SY MD Ot 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, PART UNSP, W/O PERF 05/05/2017 JESSIE SY MD Ot R31.0 GROSS HEMATURIA 05/05/2017 GLADYS ORONA DO S Ot 793.11 SOLITARY PULMONARY NODULE 05/05/2017 GLADYS ORONA DO S Ot V81.5 SCREEN FOR NEPHROPATHY 05/05/2017 GLADYS ORONA DO S Ot 599.71 GROSS HEMATURIA 05/05/2017 BAICRIS FREEMAN L RETAIL AREA MANAGER Ot F17.200 NICOTINE DEPENDENCE, UNSPECIFIED, UNCOMP 05/05/2017 BAIMA, CRIS L RETAIL AREA MANAGER Ot I 10 ESSENTIAL (PRIMARY) HYPERTENSION 05/05/2017 BAIMA, CRIS L RETAIL AREA MANAGER Ot I25.10 ATHSCL HEART DISEASE OF [place] CORONARY 05/05/2017 BAIMA, CRIS L RETAIL AREA MANAGER Ot I45.10 UNSPECIFIED RIGHT BUNDLE-BRANCH BLOCK 05/05/2017 BAIMA, CRIS L RETAIL AREA MANAGER Ot I73.9 PERIPHERAL VASCULAR DISEASE, UNSPECIFIED 05/05/2017 BAIMA, CRIS L RETAIL AREA MANAGER Ot I77.1 STRICTURE OF ARTERY 05/05/2017 BAIMA, CRIS L RETAIL AREA MANAGER Ot I77.9 DISORDER OF ARTERIES AND ARTERIOLES, UNS 05/05/2017 BAIMA, CRIS L RETAIL AREA MANAGER Ot R06.09 OTHER FORMS OF DYSPNEA 05/05/2017 LINDA CRIS L RETAIL AREA MANAGER Ot R78.5 FINDING OF OTHER PSYCHOTROPIC DRUG IN BL 05/05/2017 FLETCHERPETE CRIS L RETAIL AREA MANAGER Ot E78.5 HYPERLIPIDEMIA, UNSPECIFIED 05/05/2017 BAIMA, CRIS L RETAIL AREA MANAGER Ot F17.200 NICOTINE DEPENDENCE, UNSPECIFIED, UNCOMP 05/05/2017 BAIMA, CRIS L RETAIL AREA MANAGER Ot I 10 ESSENTIAL (PRIMARY) HYPERTENSION 05/05/2017 BAIPETE, CRIS L RETAIL AREA MANAGER Ot I25.10 ATHSCL HEART DISEASE OF [place] CORONARY 05/05/2017 LINDA CRIS L RETAIL AREA MANAGER Ot I45.10 UNSPECIFIED RIGHT BUNDLE-BRANCH BLOCK 05/05/2017 BAIMA, CRIS L RETAIL AREA MANAGER Ot I73.9 PERIPHERAL VASCULAR DISEASE, UNSPECIFIED 05/05/2017 BAIMA, CRIS L RETAIL AREA MANAGER Ot I77.1 STRICTURE OF ARTERY 05/05/2017 BAIMA, CRIS L RETAIL AREA MANAGER Ot I77.9 DISORDER OF ARTERIES AND ARTERIOLES, UNS 05/05/2017 BAIMA, CRIS L RETAIL AREA MANAGER Ot R06.09 OTHER FORMS OF DYSPNEA 05/05/2017 YOSSI HO, JESSIE Carter Ot J90 PLEURAL EFFUSION, NOT ELSEWHERE CLASSIFI 05/05/2017 JESSIE SY MD, Ot 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, PART UNSP, W/O PERF 05/05/2017 JESSIE SY MD Ot R31.0 GROSS HEMATURIA 05/08/2017 JESSIE SY MD Ot K57.3 0 DVRTCLOS OF LG INT W/O PERFORATION OR AB 05/08/2017 JESSIE SY MD Ot 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, 05/08/2017 JESSIE SY MD Ot N28.8 1 HYPERTROPHY OF KIDNEY 05/08/2017 JESSIE SY MD Ot N32.8 9 OTHER SPECIFIED DISORDERS OF BLADDER 06/02/2017 JESSIE SY MD Ot K57.3 0 DVRTCLOS OF LG INT W/O PERFORATION OR AB 06/02/2017 JESSIE SY MD Ot 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, 06/02/2017 JESSIE SY MD Ot N28.8 1 HYPERTROPHY OF KIDNEY 06/02/2017 JESSIE SY MD Ot N32.8 9 OTHER SPECIFIED DISORDERS OF [place] 08/03/2017 GLADYS ORONA DO S Ot 793.11 SOLITARY PULMONARY NODULE 08/03/2017 GLADYS ORONA DO S Ot V81.5 SCREEN FOR NEPHROPATHY 08/03/2017 GLADYS ORONA DO S Ot 599.71 GROSS HEMATURIA 08/03/2017 CRIS MCKEON RETAIL AREA MANAGER Ot F17.200 NICOTINE DEPENDENCE, UNSPECIFIED, UNCOMP 08/03/2017 CRIS MCKEON RETAIL AREA MANAGER Ot I 10 ESSENTIAL (PRIMARY) HYPERTENSION 08/03/2017 CRIS MCKEON RETAIL AREA MANAGER Ot I25.10 ATHSCL HEART DISEASE OF [place] CORONARY 08/03/2017 CRIS MCKEON RETAIL AREA MANAGER Ot I45.10 UNSPECIFIED RIGHT BUNDLE-BRANCH BLOCK 08/03/2017 CRIS MCKEON RETAIL AREA MANAGER Ot I73.9 PERIPHERAL VASCULAR DISEASE, UNSPECIFIED 08/03/2017 CRIS MCKEON RETAIL AREA MANAGER Ot I77.1 STRICTURE OF ARTERY 08/03/2017 CRIS MCKEON RETAIL AREA MANAGER Ot I77.9 DISORDER OF ARTERIES AND ARTERIOLES, UNS 08/03/2017 CRIS MCKEON RETAIL AREA MANAGER Ot R06.09 OTHER FORMS OF DYSPNEA 08/03/2017 CRIS MCKEON RETAIL AREA MANAGER Ot R78.5 FINDING OF OTHER PSYCHOTROPIC DRUG IN BL 08/03/2017 CRIS MCKEON RETAIL AREA MANAGER Ot E78.5 HYPERLIPIDEMIA, UNSPECIFIED 08/03/2017 CRIS MCKEON RETAIL AREA MANAGER Ot F17.200 NICOTINE DEPENDENCE, UNSPECIFIED, UNCOMP 08/03/2017 CRIS MCKEON L RETAIL AREA MANAGER Ot I 10 ESSENTIAL (PRIMARY) HYPERTENSION 08/03/2017 CRIS MCKEON RETAIL AREA MANAGER Ot I25.10 ATHSCL HEART DISEASE OF [place] CORONARY 08/03/2017 CRIS MCKEON RETAIL AREA MANAGER Ot I45.10 UNSPECIFIED RIGHT BUNDLE-BRANCH BLOCK 08/03/2017 CRIS MCKEON RETAIL AREA MANAGER Ot I73.9 PERIPHERAL VASCULAR DISEASE, UNSPECIFIED 08/03/2017 CRIS MCKEON RETAIL AREA MANAGER Ot I77.1 STRICTURE OF ARTERY 08/03/2017 CRIS MCKEON L RETAIL AREA MANAGER Ot I77.9 DISORDER OF ARTERIES AND ARTERIOLES, UNS 08/03/2017 CRIS MCKOEN RETAIL AREA MANAGER Ot R06.09 OTHER FORMS OF DYSPNEA 08/03/2017 JESSIE SY MD Ot J90 PLEURAL EFFUSION, NOT ELSEWHERE CLASSIFI 08/03/2017 JESSIE SY MD Ot 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, PART UNSP, W/O PERF 08/03/2017 JESSIE SY MD Ot R31.0 GROSS HEMATURIA 08/03/2017 JESSIE SY MD, Ot K57.3 0 DVRTCLOS OF LG INT W/O PERFORATION OR AB 08/03/2017 JESSIE SY MD Ot 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, 08/03/2017 JESSIE SY MD Ot N28.8 1 HYPERTROPHY OF KIDNEY 08/03/2017 JESSIE SY MD Ot N32.8 9 OTHER SPECIFIED DISORDERS OF [place]AD[place] 08/06/2017 BARTOLO GUY APRN Ot M47.816 SPONDYLOSIS W/O MYELOPATHY OR RADICULOPA 08/06/2017 BARTOLO GUY APRN Ot N28.1 CYST OF KIDNEY, ACQUIRED 08/11/2017 BARTOLO GUY COMMUNITY THEATER ACTOR Ot M47.816 SPONDYLOSIS W/O MYELOPATHY OR RADICULOPA 08/11/2017 BARTOLO GUY COMMUNITY THEATER ACTOR Ot N28.1 CYST OF KIDNEY, ACQUIRED 08/25/2017 MALENA, BARTOLO R COMMUNITY THEATER ACTOR Ot M47.816 SPONDYLOSIS W/O MYELOPATHY OR RADICULOPA 08/25/2017 MALENABARTOLO R COMMUNITY THEATER ACTOR Ot N28.1 CYST OF KIDNEY, ACQUIRED 08/25/2017 MALENA, BARTOLO R COMMUNITY THEATER ACTOR Ot M47.816 SPONDYLOSIS W/O MYELOPATHY OR RADICULOPA 08/25/2017 MALENA, BARTOLO R COMMUNITY THEATER ACTOR Ot N28.1 CYST OF KIDNEY, ACQUIRED 08/26/2017 MALENA, BARTOLO R COMMUNITY THEATER ACTOR Ot M47.816 SPONDYLOSIS W/O MYELOPATHY OR RADICULOPA 08/26/2017 MALENA, BARTOLO R COMMUNITY THEATER ACTOR Ot N28.1 CYST OF KIDNEY, ACQUIRED 09/03/2017 RIDDHI HO FACC, VELASQUEZ FACP CCDS Ot E78.5 HYPERLIPIDEMIA, UNSPECIFIED 09/03/2017 RIDDHI HO FACC, ALI FACP CCDS Ot I08.1 RHEUMATIC DISORDERS OF BOTH [place] AND T 09/03/2017 RIDDHI HO FACC, ALI FACP CCDS Ot I10 ESSENTIAL (PRIMARY) HYPERTENSION 09/03/2017 RIDDHI HO FACC, ALI FACP CCDS Ot I25.10 ATHSCL HEART DISEASE OF [place] CORONARY 09/03/2017 RIDDHI HO FACC, ALI FACP CCDS Ot I48.0 PAROXYSMAL ATRIAL FIBRILLATION 09/03/2017 RIDDHI HO FACC, ALI FACP CCDS Ot I73.9 PERIPHERAL VASCULAR DISEASE, UNSPECIFIED 09/03/2017 RIDDHI HO FACC, ALI FACP CCDS Ot Z72.0 TOBACCO USE 09/03/2017 RIDDHI HO FACC, ALI FACP CCDS Ot Z95.0 PRESENCE OF CARDIAC PACEMAKER 09/22/2017 RIDDHI HO FACC, ALI FACP CCDS Ot E78.5 HYPERLIPIDEMIA, UNSPECIFIED 09/22/2017 RIDDHI HO FACC, ALI FACP CCDS Ot I08.1 RHEUMATIC DISORDERS OF BOTH [place] AND T 09/22/2017 RIDDHI HO FACC, ALI FACP CCDS Ot I10 ESSENTIAL (PRIMARY) HYPERTENSION 09/22/2017 RIDDHI HO FACC, ALI FACP CCDS Ot I25.10 ATHSCL HEART DISEASE OF [place] CORONARY 09/22/2017 RIDDHI HO FACC, ALI FACP CCDS Ot I48.0 PAROXYSMAL ATRIAL FIBRILLATION 09/22/2017 RIDDHI HO FACC, VELASQUEZ FACP CCDS Ot I73.9 PERIPHERAL VASCULAR DISEASE, UNSPECIFIED 09/22/2017 RIDDHI HO FACC, VELASQUEZ FACP CCDS Ot Z72.0 TOBACCO USE 09/22/2017 RIDDHI HO FACC, VELASQUEZ FACP CCDS Ot Z95.0 PRESENCE OF CARDIAC PACEMAKER 12/04/2017 GLADYS ORONA DO S Ot 793.11 SOLITARY PULMONARY NODULE 12/04/2017 GLADYS ORONA DO S Ot V81.5 SCREEN FOR NEPHROPATHY 12/04/2017 KAREN ORONA DOLINE S Ot 599.71 GROSS HEMATURIA 12/04/2017 LINDA CRIS L RETAIL AREA MANAGER Ot F17.200 NICOTINE DEPENDENCE, UNSPECIFIED, UNCOMP 12/04/2017 LINDA CRIS L RETAIL AREA MANAGER Ot I 10 ESSENTIAL (PRIMARY) HYPERTENSION 12/04/2017 LINDA CRIS L RETAIL AREA MANAGER Ot I25.10 ATHSCL HEART DISEASE OF [place] CORONARY 12/04/2017 LINDA CRIS L RETAIL AREA MANAGER Ot I45.10 UNSPECIFIED RIGHT BUNDLE-BRANCH BLOCK 12/04/2017 MANPREET MCKEONHER L RETAIL AREA MANAGER Ot I73.9 PERIPHERAL VASCULAR DISEASE, UNSPECIFIED 12/04/2017 CRIS MCKEON L RETAIL AREA MANAGER Ot I77.1 STRICTURE OF ARTERY 12/04/2017 CRIS MCKEON L RETAIL AREA MANAGER Ot I77.9 DISORDER OF ARTERIES AND ARTERIOLES, UNS 12/04/2017 LINDA CRIS L RETAIL AREA MANAGER Ot R06.09 OTHER FORMS OF DYSPNEA 12/04/2017 MANPREET MCKEONHER L RETAIL AREA MANAGER Ot R78.5 FINDING OF OTHER PSYCHOTROPIC DRUG IN BL 12/04/2017 LINDA CRIS L RETAIL AREA MANAGER Ot E78.5 HYPERLIPIDEMIA, UNSPECIFIED 12/04/2017 FLETCHERMA CRIS L RETAIL AREA MANAGER Ot F17.200 NICOTINE DEPENDENCE, UNSPECIFIED, UNCOMP 12/04/2017 BAIMA, CRIS L RETAIL AREA MANAGER Ot I 10 ESSENTIAL (PRIMARY) HYPERTENSION 12/04/2017 FLETCHERMA CRIS L RETAIL AREA MANAGER Ot I25.10 ATHSCL HEART DISEASE OF [place] CORONARY 12/04/2017 LINDA CRIS L RETAIL AREA MANAGER Ot I45.10 UNSPECIFIED RIGHT BUNDLE-BRANCH BLOCK 12/04/2017 LINDA CRIS L RETAIL AREA MANAGER Ot I73.9 PERIPHERAL VASCULAR DISEASE, UNSPECIFIED 12/04/2017 LINDA CRIS L RETAIL AREA MANAGER Ot I77.1 STRICTURE OF ARTERY 12/04/2017 CRIS MCKEON RETAIL AREA MANAGER Ot I77.9 DISORDER OF ARTERIES AND ARTERIOLES, UNS 12/04/2017 CRIS MCKEON RETAIL AREA MANAGER Ot R06.09 OTHER FORMS OF DYSPNEA 12/04/2017 JESSIE SY MD Ot J90 PLEURAL EFFUSION, NOT ELSEWHERE CLASSIFI 12/04/2017 JESSIE SY MD Ot 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, PART UNSP, W/O PERF 12/04/2017 JESSIE SY MD Ot R31.0 GROSS HEMATURIA 12/04/2017 JESSIE SY MD, Ot K57.3 0 DVRTCLOS OF LG INT W/O PERFORATION OR AB 12/04/2017 JESSIE SY MD Ot 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, 12/04/2017 JESSIE SY MD Ot N28.8 1 HYPERTROPHY OF KIDNEY 12/04/2017 JESSIE SY MD Ot N32.8 9 OTHER SPECIFIED DISORDERS OF [place] 12/04/2017 RIDDHI HO FACC, ALI FACP CCDS Ot E78.5 HYPERLIPIDEMIA, UNSPECIFIED 12/04/2017 RIDDHI HO FACC, ALI FACP CCDS Ot I08.1 RHEUMATIC DISORDERS OF BOTH [place] AND T 12/04/2017 RIDDHI HO FACC, ALI FACP CCDS Ot I10 ESSENTIAL (PRIMARY) HYPERTENSION 12/04/2017 RIDDHI HO FACC, ALI FACP CCDS Ot I25.10 ATHSCL HEART DISEASE OF [place] CORONARY 12/04/2017 RIDDHI HO FACC, ALI FACP CCDS Ot I48.0 PAROXYSMAL ATRIAL FIBRILLATION 12/04/2017 RIDDHI HO FACC, ALI FACP CCDS Ot I73.9 PERIPHERAL VASCULAR DISEASE, UNSPECIFIED 12/04/2017 RIDDHI HO FACC, ALI FACP CCDS Ot Z72.0 TOBACCO USE 12/04/2017 RIDDHI HO FACC, ALI FACP CCDS Ot Z95.0 PRESENCE OF CARDIAC PACEMAKER 12/04/2017 BARTOLO GUY APRN Ot M47.816 SPONDYLOSIS W/O MYELOPATHY OR RADICULOPA 12/04/2017 BARTOLO GUY COMMUNITY THEATER ACTOR Ot N28.1 CYST OF KIDNEY, ACQUIRED 12/04/2017 BARTOLO GUY COMMUNITY THEATER ACTOR Ot M47.816 SPONDYLOSIS W/O MYELOPATHY OR RADICULOPA 12/04/2017 BARTOLO GUY COMMUNITY THEATER ACTOR Ot N28.1 CYST OF KIDNEY, ACQUIRED 12/09/2017 JESSIE SY MD Ot K57.3 0 DVRTCLOS OF LG INT W/O PERFORATION OR AB 12/09/2017 JESSIE SY MD Ot 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, 12/09/2017 JESSIE SY MD Ot N28.8 1 HYPERTROPHY OF KIDNEY 12/09/2017 JESSIE SY MD Ot N32.8 9 OTHER SPECIFIED DISORDERS OF [place] 06/02/2018 ALYCENDAUBREY DO, GLADYS S Ot 599.71 GROSS HEMATURIA 06/02/2018 CRIS MCKEON L RETAIL AREA MANAGER Ot F17.200 NICOTINE DEPENDENCE, UNSPECIFIED, UNCOMP 06/02/2018 CRIS MCKEON L RETAIL AREA MANAGER Ot I 10 ESSENTIAL (PRIMARY) HYPERTENSION 06/02/2018 CRIS MCKEON L RETAIL AREA MANAGER Ot I25.10 ATHSCL HEART DISEASE OF [place] CORONARY 06/02/2018 CRIS MCKEON L RETAIL AREA MANAGER Ot I45.10 UNSPECIFIED RIGHT BUNDLE-BRANCH BLOCK 06/02/2018 LINDA CRIS L RETAIL AREA MANAGER Ot I73.9 PERIPHERAL VASCULAR DISEASE, UNSPECIFIED 06/02/2018 MANPREET MCKEONHER L RETAIL AREA MANAGER Ot I77.1 STRICTURE OF ARTERY 06/02/2018 LINDA CRIS L RETAIL AREA MANAGER Ot I77.9 DISORDER OF ARTERIES AND ARTERIOLES, UNS 06/02/2018 MANPREET MCKEONHER L RETAIL AREA MANAGER Ot R06.09 OTHER FORMS OF DYSPNEA 06/02/2018 CRIS MCKEON L RETAIL AREA MANAGER Ot R78.5 FINDING OF OTHER PSYCHOTROPIC DRUG IN BL 06/02/2018 CRIS MCKEON L RETAIL AREA MANAGER Ot E78.5 HYPERLIPIDEMIA, UNSPECIFIED 06/02/2018 FLETCHERMA CRIS L RETAIL AREA MANAGER Ot F17.200 NICOTINE DEPENDENCE, UNSPECIFIED, UNCOMP 06/02/2018 BAIMA CRIS L RETAIL AREA MANAGER Ot I 10 ESSENTIAL (PRIMARY) HYPERTENSION 06/02/2018 LINDA CRIS L RETAIL AREA MANAGER Ot I25.10 ATHSCL HEART DISEASE OF [place] CORONARY 06/02/2018 CRIS MCKEON RETAIL AREA MANAGER Ot I45.10 UNSPECIFIED RIGHT BUNDLE-BRANCH BLOCK 06/02/2018 CRIS MCKEON Guero RETAIL AREA MANAGER Ot I73.9 PERIPHERAL VASCULAR DISEASE, UNSPECIFIED 06/02/2018 CRIS MCKEON RETAIL AREA MANAGER Ot I77.1 STRICTURE OF ARTERY 06/02/2018 CRIS MCKEON RETAIL AREA MANAGER Ot I77.9 DISORDER OF ARTERIES AND ARTERIOLES, UNS 06/02/2018 LINDA CRIS Jack RETAIL AREA MANAGER Ot R06.09 OTHER FORMS OF DYSPNEA 06/02/2018 JESSIE SY MD Ot J90 PLEURAL EFFUSION, NOT ELSEWHERE CLASSIFI 06/02/2018 JESSIE SY MD Ot 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, PART UNSP, W/O PERF 06/02/2018 JESSIE SY MD Ot R31.0 GROSS HEMATURIA 06/02/2018 JESSIE SY MD, Ot K57.3 0 DVRTCLOS OF LG INT W/O PERFORATION OR AB 06/02/2018 JESSIE SY MD Ot 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, 06/02/2018 JESSIE SY MD Ot N28.8 1 HYPERTROPHY OF KIDNEY 06/02/2018 JESSIE SY MD Ot N32.8 9 OTHER SPECIFIED DISORDERS OF [place] 06/02/2018 RIDDHI HO FACC, ALI FACP CCDS Ot E78.5 HYPERLIPIDEMIA, UNSPECIFIED 06/02/2018 RIDDHI HO FACC, ALI FACP CCDS Ot I08.1 RHEUMATIC DISORDERS OF BOTH [place] AND T 06/02/2018 RIDDHI HO FACC, ALI FACP CCDS Ot I10 ESSENTIAL (PRIMARY) HYPERTENSION 06/02/2018 RIDDHI HO FACC, ALI FACP CCDS Ot I25.10 ATHSCL HEART DISEASE OF [place] CORONARY 06/02/2018 RIDDHI HO FACC, ALI FACP CCDS Ot I48.0 PAROXYSMAL ATRIAL FIBRILLATION 06/02/2018 RIDDHI HO FACC, ALI FACP CCDS Ot I73.9 PERIPHERAL VASCULAR DISEASE, UNSPECIFIED 06/02/2018 RIDDHI HO FACC, ALI FACP CCDS Ot Z72.0 TOBACCO USE 06/02/2018 RIDDHI MD FACC, ALI FACP CCDS Ot Z95.0 PRESENCE OF CARDIAC PACEMAKER 06/02/2018 BARTOLO GUY Benjamin COMMUNITY THEATER ACTOR Ot M47.816 SPONDYLOSIS W/O MYELOPATHY OR RADICULOPA 06/02/2018 BARTOLO GUY COMMUNITY THEATER ACTOR Ot N28.1 CYST OF KIDNEY, ACQUIRED 06/05/2018 JESSIE SY MD Ot 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, PART UNSP, W/O PERF 06/05/2018 JESSIE SY MD Ot M47.8 16 SPONDYLOSIS W/O MYELOPATHY OR RADICULOPA 06/05/2018 JESSIE SY MD Ot N28.1 CYST OF KIDNEY, ACQUIRED 06/05/2018 JESSIE SY MD Ot N42.8 9 OTHER SPECIFIED DISORDERS OF PROSTATE 06/05/2018 JESSIE SY MD Ot S32.010A WEDGE COMPRESSION FRACTURE OF FIRST LUMB 06/23/2018 JESSIE SY MD Ot 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, PART UNSP, W/O PERF 06/23/2018 JESSIE SY MD Ot M47.8 16 SPONDYLOSIS W/O MYELOPATHY OR RADICULOPA 06/23/2018 JESSIE SY MD Ot N28.1 CYST OF KIDNEY, ACQUIRED 06/23/2018 JESSIE SY MD Ot N42.8 9 OTHER SPECIFIED DISORDERS OF PROSTATE 06/23/2018 JESSIE SY MD Ot S32.010A WEDGE COMPRESSION FRACTURE OF FIRST LUMB 07/24/2018 ORENDER DO, GLADYS S Ot H54.7 UNSPECIFIED VISUAL LOSS 07/24/2018 ORENDER DO, GLADYS S Ot R06.00 DYSPNEA, UNSPECIFIED 07/24/2018 ORENDER DO, GLADYS S Ot R63.4 ABNORMAL WEIGHT LOSS 07/24/2018 ALYCENDER DO, GLADYS S Ot Z95.0 PRESENCE OF CARDIAC PACEMAKER 08/12/2018 ORENDER DO, GLADYS S Ot H54.7 UNSPECIFIED VISUAL LOSS 08/12/2018 ORENDER DO, GLADYS S Ot R06.00 DYSPNEA, UNSPECIFIED 08/12/2018 ORENDER DO, GLADYS S Ot R63.4 ABNORMAL WEIGHT LOSS 08/12/2018 GLADYS ORONA DO Ot Z95.0 PRESENCE OF CARDIAC PACEMAKER 08/17/2018 GLADYS ORONA DO Ot H47.10 UNSPECIFIED PAPILLEDEMA 05/08/2019 BAIMA, CRIS L RETAIL AREA MANAGER Ot F17.200 NICOTINE DEPENDENCE, UNSPECIFIED, UNCOMP 05/08/2019 BAIMA, CRIS L RETAIL AREA MANAGER Ot I 10 ESSENTIAL (PRIMARY) HYPERTENSION 05/08/2019 BAIMA, CRIS L RETAIL AREA MANAGER Ot I25.10 ATHSCL HEART DISEASE OF [place] CORONARY 05/08/2019 BAIMA, CRIS L RETAIL AREA MANAGER Ot I45.10 UNSPECIFIED RIGHT BUNDLE-BRANCH BLOCK 05/08/2019 BAIMA, CRIS L RETAIL AREA MANAGER Ot I73.9 PERIPHERAL VASCULAR DISEASE, UNSPECIFIED 05/08/2019 BAIMA, CRIS L RETAIL AREA MANAGER Ot I77.1 STRICTURE OF ARTERY 05/08/2019 BAIMA, CRIS L RETAIL AREA MANAGER Ot I77.9 DISORDER OF ARTERIES AND ARTERIOLES, UNS 05/08/2019 BAIMA, CRIS L RETAIL AREA MANAGER Ot R06.09 OTHER FORMS OF DYSPNEA 05/08/2019 BAIMA, CRIS L RETAIL AREA MANAGER Ot R78.5 FINDING OF OTHER PSYCHOTROPIC DRUG IN BL 05/08/2019 BAIMA, CRIS L RETAIL AREA MANAGER Ot E78.5 HYPERLIPIDEMIA, UNSPECIFIED 05/08/2019 BAIMA, CRIS L RETAIL AREA MANAGER Ot F17.200 NICOTINE DEPENDENCE, UNSPECIFIED, UNCOMP 05/08/2019 BAIMA, CRIS L RETAIL AREA MANAGER Ot I 10 ESSENTIAL (PRIMARY) HYPERTENSION 05/08/2019 BAIMA, CRIS L RETAIL AREA MANAGER Ot I25.10 ATHSCL HEART DISEASE OF [place] CORONARY 05/08/2019 BAIMA, CRIS L RETAIL AREA MANAGER Ot I45.10 UNSPECIFIED RIGHT BUNDLE-BRANCH BLOCK 05/08/2019 BAIMA, CRIS L RETAIL AREA MANAGER Ot I73.9 PERIPHERAL VASCULAR DISEASE, UNSPECIFIED 05/08/2019 BAIMA, CRIS L RETAIL AREA MANAGER Ot I77.1 STRICTURE OF ARTERY 05/08/2019 BAIMA, CRIS L RETAIL AREA MANAGER Ot I77.9 DISORDER OF ARTERIES AND ARTERIOLES, UNS 05/08/2019 BAIMA, CRIS L RETAIL AREA MANAGER Ot R06.09 OTHER FORMS OF DYSPNEA 05/08/2019 YOSSI HO, JESSIE Carter Ot J90 PLEURAL EFFUSION, NOT ELSEWHERE CLASSIFI 05/08/2019 JESSIE SY MD Ot 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, PART UNSP, W/O PERF 05/08/2019 JESSIE SY MD Ot R31.0 GROSS HEMATURIA 05/08/2019 JESSIE SY MD, Ot K57.3 0 DVRTCLOS OF LG INT W/O PERFORATION OR AB 05/08/2019 JESSIE SY MD Ot 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, 05/08/2019 JESSIE SY MD Ot N28.8 1 HYPERTROPHY OF KIDNEY 05/08/2019 JESSIE SY MD Ot N32.8 9 OTHER SPECIFIED DISORDERS OF BLADDER 05/08/2019 RIDDHI HO FACC, ALI FACP CCDS Ot E78.5 HYPERLIPIDEMIA, UNSPECIFIED 05/08/2019 RIDDHI HO FACC, ALI FACP CCDS Ot I08.1 RHEUMATIC DISORDERS OF BOTH MITRAL AND T 05/08/2019 RIDDHI HO FACC, ALI FACP CCDS Ot I10 ESSENTIAL (PRIMARY) HYPERTENSION 05/08/2019 RIDDHI HO FACC, ALI FACP CCDS Ot I25.10 ATHSCL HEART DISEASE OF [place] CORONARY 05/08/2019 RIDDHI HO FACC, ALI FACP CCDS Ot I48.0 PAROXYSMAL ATRIAL FIBRILLATION 05/08/2019 RIDDHI HO FACC, ALI FACP CCDS Ot I73.9 PERIPHERAL VASCULAR DISEASE, UNSPECIFIED 05/08/2019 RIDDHI HO FACC, ALI FACP CCDS Ot Z72.0 TOBACCO USE 05/08/2019 RIDDHI HO FACC, ALI FACP CCDS Ot Z95.0 PRESENCE OF CARDIAC PACEMAKER 05/08/2019 BARTOLO GUY COMMUNITY THEATER ACTOR Ot M47.816 SPONDYLOSIS W/O MYELOPATHY OR RADICULOPA 05/08/2019 BARTOLO GUY R COMMUNITY THEATER ACTOR Ot N28.1 CYST OF KIDNEY, ACQUIRED 05/08/2019 JESSIE SY MD Ot 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, PART UNSP, W/O PERF 05/08/2019 JESSIE SY MD Ot M47.8 16 SPONDYLOSIS W/O MYELOPATHY OR RADICULOPA 05/08/2019 JESSIE SY MD Ot N28.1 CYST OF KIDNEY, ACQUIRED 05/08/2019 JESSIE SY MD Ot N42.8 9 OTHER SPECIFIED DISORDERS OF PROSTATE 05/08/2019 YOSSI HO, JESSIE Carter Ot S32.010A WEDGE COMPRESSION FRACTURE OF FIRST LUMB 05/08/2019 ORENDER DO, GLADYS S Ot H54.7 UNSPECIFIED VISUAL LOSS 05/08/2019 ORENDER DO, GLADYS S Ot R06.00 DYSPNEA, UNSPECIFIED 05/08/2019 ORENDER DO, GLADYS S Ot R63.4 ABNORMAL WEIGHT LOSS 05/08/2019 ORENDER DO, GLADYS S Ot Z95.0 PRESENCE OF CARDIAC PACEMAKER 05/08/2019 ORENDER DO, GLADYS S Ot H47.10 UNSPECIFIED PAPILLEDEMA 05/09/2019 BAIMA, CRIS L RETAIL AREA MANAGER Ot F17.200 NICOTINE DEPENDENCE, UNSPECIFIED, UNCOMP 05/09/2019 BAIMA, CRIS L RETAIL AREA MANAGER Ot I 10 ESSENTIAL (PRIMARY) HYPERTENSION 05/09/2019 BAIMA, CRIS L RETAIL AREA MANAGER Ot I25.10 ATHSCL HEART DISEASE OF [place] CORONARY 05/09/2019 BAIMA, CRIS L RETAIL AREA MANAGER Ot I45.10 UNSPECIFIED RIGHT BUNDLE-BRANCH BLOCK 05/09/2019 BAIMA, CRIS L RETAIL AREA MANAGER Ot I73.9 PERIPHERAL VASCULAR DISEASE, UNSPECIFIED 05/09/2019 BAIMA, CRIS L RETAIL AREA MANAGER Ot I77.1 STRICTURE OF ARTERY 05/09/2019 BAIMA, CRIS L RETAIL AREA MANAGER Ot I77.9 DISORDER OF ARTERIES AND ARTERIOLES, UNS 05/09/2019 BAIMA, CRIS L RETAIL AREA MANAGER Ot R06.09 OTHER FORMS OF DYSPNEA 05/09/2019 BAIMA, CRIS L RETAIL AREA MANAGER Ot R78.5 FINDING OF OTHER PSYCHOTROPIC DRUG IN BL 05/09/2019 BAIMA, CRIS L RETAIL AREA MANAGER Ot E78.5 HYPERLIPIDEMIA, UNSPECIFIED 05/09/2019 BAIMA, CRIS L RETAIL AREA MANAGER Ot F17.200 NICOTINE DEPENDENCE, UNSPECIFIED, UNCOMP 05/09/2019 BAIMA, CRIS L RETAIL AREA MANAGER Ot I 10 ESSENTIAL (PRIMARY) HYPERTENSION 05/09/2019 BAIMA, CRIS L RETAIL AREA MANAGER Ot I25.10 ATHSCL HEART DISEASE OF [place] CORONARY 05/09/2019 BAIMA, CRIS L RETAIL AREA MANAGER Ot I45.10 UNSPECIFIED RIGHT BUNDLE-BRANCH BLOCK 05/09/2019 BAICRIS FREEMAN RETAIL AREA MANAGER Ot I73.9 PERIPHERAL VASCULAR DISEASE, UNSPECIFIED 05/09/2019 CRIS MCKEON RETAIL AREA MANAGER Ot I77.1 STRICTURE OF ARTERY 05/09/2019 CRIS MCKEON RETAIL AREA MANAGER Ot I77.9 DISORDER OF ARTERIES AND ARTERIOLES, UNS 05/09/2019 FLETCHERCRIS FREEMAN RETAIL AREA MANAGER Ot R06.09 OTHER FORMS OF DYSPNEA 05/09/2019 JESSIE SY MD Ot J90 PLEURAL EFFUSION, NOT ELSEWHERE CLASSIFI 05/09/2019 JESSIE SY MD Ot 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, PART UNSP, W/O PERF 05/09/2019 JESSIE SY MD Ot R31.0 GROSS HEMATURIA 05/09/2019 JESSIE SY MD Ot K57.3 0 DVRTCLOS OF LG INT W/O PERFORATION OR AB 05/09/2019 JESSIE SY MD Ot 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, 05/09/2019 JESSIE SY MD Ot N28.8 1 HYPERTROPHY OF KIDNEY 05/09/2019 JESSIE SY MD Ot N32.8 9 OTHER SPECIFIED DISORDERS OF BLADDER 05/09/2019 RIDDHI HO FACC, ALI FACP CCDS Ot E78.5 HYPERLIPIDEMIA, UNSPECIFIED 05/09/2019 RIDDHI HO FACC, ALI FACP CCDS Ot I08.1 RHEUMATIC DISORDERS OF BOTH MITRAL AND T 05/09/2019 RIDDHI HO FACC, ALI FACP CCDS Ot I10 ESSENTIAL (PRIMARY) HYPERTENSION 05/09/2019 RIDDHI HO FACC, ALI FACP CCDS Ot I25.10 ATHSCL HEART DISEASE OF [place] CORONARY 05/09/2019 RIDDHI HO FACC, ALI FACP CCDS Ot I48.0 PAROXYSMAL ATRIAL FIBRILLATION 05/09/2019 RIDDHI HO FACC, ALI FACP CCDS Ot I73.9 PERIPHERAL VASCULAR DISEASE, UNSPECIFIED 05/09/2019 RIDDHI HO FACC, ALI FACP CCDS Ot Z72.0 TOBACCO USE 05/09/2019 RIDDHI HO FACC, ALI FACP CCDS Ot Z95.0 PRESENCE OF CARDIAC PACEMAKER 05/09/2019 MALENA, BARTOLO R COMMUNITY THEATER ACTOR Ot M47.816 SPONDYLOSIS W/O MYELOPATHY OR RADICULOPA 05/09/2019 MALENA BARTOLO Benjamin COMMUNITY THEATER ACTOR Ot N28.1 CYST OF KIDNEY, ACQUIRED 05/09/2019 JESSIE SY MD Ot 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, PART UNSP, W/O PERF 05/09/2019 JESSIE SY MD, Ot M47.8 16 SPONDYLOSIS W/O MYELOPATHY OR RADICULOPA 05/09/2019 JESSIE SY MD Ot N28.1 CYST OF KIDNEY, ACQUIRED 05/09/2019 JESSIE SY MD Ot N42.8 9 OTHER SPECIFIED DISORDERS OF PROSTATE 05/09/2019 JESSIE SY MD Ot S32.010A WEDGE COMPRESSION FRACTURE OF FIRST LUMB 05/09/2019 ALYCENDER GLADYS WARE S Ot H54.7 UNSPECIFIED VISUAL LOSS 05/09/2019 ALYCENDER GLADYS WARE S Ot R06.00 DYSPNEA, UNSPECIFIED 05/09/2019 ALYCENDER GLADYS WARE S Ot R63.4 ABNORMAL WEIGHT LOSS 05/09/2019 ALYCENDGLADYS BURGOS DO S Ot Z95.0 PRESENCE OF CARDIAC PACEMAKER 05/09/2019 GLADYS ORONA DO S Ot H47.10 UNSPECIFIED PAPILLEDEMA 05/12/2019 FABIAN GOMES MD Ot E11.649 TYPE 2 DIABETES MELLITUS WITH HYPOGLYCEM 05/12/2019 FABIAN GOMES MD Ot E78. 00 PURE HYPERCHOLESTEROLEMIA, UNSPECIFIED 05/12/2019 FABIAN GOMES MD Ot F03. 90 UNSPECIFIED DEMENTIA WITHOUT BEHAVIORAL 05/12/2019 FABIAN GOMES MD Ot F17.210 NICOTINE DEPENDENCE, CIGARETTES, UNCOMPL 05/12/2019 FABIAN GOMES MD Ot G93. 41 METABOLIC ENCEPHALOPATHY 05/12/2019 FABIAN GOMES MD Ot I11. 0 HYPERTENSIVE HEART DISEASE WITH HEART FA 05/12/2019 FABIAN GOMES MD Ot I21. A1 MYOCARDIAL INFARCTION TYPE 2 05/12/2019 FABIAN GOMES MD Ot I25. 10 ATHSCL HEART DISEASE OF [place] CORONARY 05/12/2019 FABIAN GOMES MD Ot I34. 0 NONRHEUMATIC MITRAL (VALVE) INSUFFICIENC 05/12/2019 FABIAN GOMES MD Ot I45. 10 UNSPECIFIED RIGHT BUNDLE-BRANCH BLOCK 05/12/2019 FABIAN GOMES MD Ot I48. 0 PAROXYSMAL ATRIAL FIBRILLATION 05/12/2019 FABIAN GOMES MD, Ot I50. 33 ACUTE ON CHRONIC DIASTOLIC (CONGESTIVE) 05/12/2019 FABIAN GOMES MD Ot I65. 23 OCCLUSION AND STENOSIS OF BILATERAL [place] 05/12/2019 FABIAN GOMES MD Ot I70.213 ATHSCL [place] ARTERIES OF EXTRM W INTRMT 05/12/2019 FABIAN GOMES MD Ot J44. 9 CHRONIC OBSTRUCTIVE PULMONARY DISEASE, U 05/12/2019 FABIAN GOMES MD, Ot K21. 9 GASTRO-ESOPHAGEAL REFLUX DISEASE WITHOUT 05/12/2019 FABIAN GOMES MD Ot M19. 91 PRIMARY OSTEOARTHRITIS, UNSPECIFIED SITE 05/12/2019 FABIAN GOMES MD Ot N40. 0 BENIGN PROSTATIC HYPERPLASIA WITHOUT LOW 05/12/2019 FABIAN GOMES MD Ot R09. 02 HYPOXEMIA 05/12/2019 FABIAN GOMES MD Ot R53. 1 WEAKNESS 05/12/2019 FABIAN GOMES MD Ot Z79. 01 PRISON (CURRENT) USE OF ANTICOAGULANT 05/12/2019 FABIAN GOMES MD Ot Z79. 84 PRISON (CURRENT) USE OF ORAL HYPOGLYC 05/12/2019 FABIAN GOMES MD Ot Z86. 73 PRSNL HX OF TIA (TIA), AND CEREB INFRC W 05/12/2019 FABIAN GOMES MD Ot Z91. 81 HISTORY OF FALLING 05/12/2019 FABIAN GOMES MD Ot Z95. 0 PRESENCE OF CARDIAC PACEMAKER 05/12/2019 FABIAN GOMES MD Ot Z95.820 PERIPHERAL VASCULAR ANGIOPLASTY STATUS W 05/13/2019 FABIAN GOMES MD Ot E11.649 TYPE 2 DIABETES MELLITUS WITH HYPOGLYCEM 05/13/2019 FABIAN GOMES MD Ot E78. 00 PURE HYPERCHOLESTEROLEMIA, UNSPECIFIED 05/13/2019 FABIAN GOMES MD Ot F03. 90 UNSPECIFIED DEMENTIA WITHOUT BEHAVIORAL 05/13/2019 FABIAN GOMES MD Ot F17.210 NICOTINE DEPENDENCE, CIGARETTES, UNCOMPL 05/13/2019 FABIAN GOMES MD, Ot G93. 41 METABOLIC ENCEPHALOPATHY 05/13/2019 FABIAN GOMES MD, Ot I11. 0 HYPERTENSIVE HEART DISEASE WITH HEART FA 05/13/2019 FABIAN GOMES MD, Ot I21. A1 MYOCARDIAL INFARCTION TYPE 2 05/13/2019 FABIAN GOMES MD, Ot I25. 10 ATHSCL HEART DISEASE OF [place] CORONARY 05/13/2019 FABIAN GOMES MD, Ot I34. 0 NONRHEUMATIC MITRAL (VALVE) INSUFFICIENC 05/13/2019 FABIAN GOMES MD, Ot I45. 10 UNSPECIFIED RIGHT BUNDLE-BRANCH BLOCK 05/13/2019 FABIAN GOMES MD, Ot I48. 0 PAROXYSMAL ATRIAL FIBRILLATION 05/13/2019 FABIAN GOMES MD, Ot I50. 33 ACUTE ON CHRONIC DIASTOLIC (CONGESTIVE) 05/13/2019 FABIAN GOMES MD, Ot I65. 23 OCCLUSION AND STENOSIS OF BILATERAL [place] 05/13/2019 FABIAN GOMES MD, Ot I70.213 ATHSCL [place] ARTERIES OF EXTRM W INTRMT 05/13/2019 FABIAN GOMES MD, Ot J44. 9 CHRONIC OBSTRUCTIVE PULMONARY DISEASE, U 05/13/2019 FABIAN GOMES MD, Ot K21. 9 GASTRO-ESOPHAGEAL REFLUX DISEASE WITHOUT 05/13/2019 FABIAN GOMES MD, Ot M19. 91 PRIMARY OSTEOARTHRITIS, UNSPECIFIED SITE 05/13/2019 FABIAN GOMES MD, Ot N40. 0 BENIGN PROSTATIC HYPERPLASIA WITHOUT LOW 05/13/2019 FABIAN GOMES MD Ot R09. 02 HYPOXEMIA 05/13/2019 FABIAN GOMES MD, Ot R53. 1 WEAKNESS 05/13/2019 FABIAN GOMES MD, Ot Z79. 01 PRISON (CURRENT) USE OF ANTICOAGULANT 05/13/2019 FABIAN GOMES MD, Ot Z79. 84 BALLOON DIPPER (CURRENT) USE OF ORAL HYPOGLYC 05/13/2019 FABIAN GOMES MD Ot Z86. 73 PRSNL HX OF TIA (TIA), AND CEREB INFRC W 05/13/2019 FABIAN GOMES MD, Ot Z91. 81 HISTORY OF FALLING 05/13/2019 FABIAN GOMES MD, Ot Z95. 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 VASCULAR ANGIOPLASTY STATUS W 05/13/2019 FABIAN GOMES MD Ot E11.649 TYPE 2 DIABETES MELLITUS WITH HYPOGLYCEM 05/13/2019 FABIAN GOMES MD, Ot E78. 00 PURE HYPERCHOLESTEROLEMIA, UNSPECIFIED 05/13/2019 FABIAN GOMES MD, Ot F03. 90 UNSPECIFIED DEMENTIA WITHOUT BEHAVIORAL 05/13/2019 FABIAN GOMES MD Ot F17.210 NICOTINE DEPENDENCE, CIGARETTES, UNCOMPL 05/13/2019 FABIAN GOMES MD Ot G93. 41 METABOLIC ENCEPHALOPATHY 05/13/2019 FABIAN GOMES MD, Ot I11. 0 HYPERTENSIVE HEART DISEASE WITH HEART FA 05/13/2019 FABIAN GOMES MD, Ot I21. A1 MYOCARDIAL INFARCTION TYPE 2 05/13/2019 FABINA GOMES MD, Ot I25. 10 ATHSCL HEART DISEASE OF [place] CORONARY 05/13/2019 FABIAN GOMES MD, Ot I34. 0 NONRHEUMATIC MITRAL (VALVE) INSUFFICIENC 05/13/2019 FABIAN GOMES MD Ot I45. 10 UNSPECIFIED RIGHT BUNDLE-BRANCH BLOCK 05/13/2019 FABIAN GOMES MD Ot I48. 0 PAROXYSMAL ATRIAL FIBRILLATION 05/13/2019 FABIAN GOMES MD Ot I50. 33 ACUTE ON CHRONIC DIASTOLIC (CONGESTIVE) 05/13/2019 FABIAN GOMES MD Ot I65. 23 OCCLUSION AND STENOSIS OF BILATERAL [place] 05/13/2019 FABIAN GOMES MD Ot I70.213 ATHSCL [place] ARTERIES OF EXTRM W INTRMT 05/13/2019 FABIAN GOMES MD Ot J44. 9 CHRONIC OBSTRUCTIVE PULMONARY DISEASE, U 05/13/2019 FABIAN GOMES MD Ot K21. 9 GASTRO-ESOPHAGEAL REFLUX DISEASE WITHOUT 05/13/2019 FABIAN GOMES MD Ot M19. 91 PRIMARY OSTEOARTHRITIS, UNSPECIFIED SITE 05/13/2019 FABIAN GOMES MD Ot N40. 0 BENIGN PROSTATIC HYPERPLASIA WITHOUT LOW 05/13/2019 FABIAN GOMES MD Ot R09. 02 HYPOXEMIA 05/13/2019 FABIAN GOMES MD Ot R53. 1 WEAKNESS 05/13/2019 FABIAN GOMES MD, Ot Z79. 01 PRISON (CURRENT) USE OF ANTICOAGULANT 05/13/2019 FABIAN GOMES MD Ot Z79. 84 BALLOON DIPPER (CURRENT) USE OF ORAL HYPOGLYC 05/13/2019 FABIAN GOMES MD, Ot Z86. 73 PRSNL HX OF TIA (TIA), AND CEREB INFRC W 05/13/2019 FABIAN GOMES MD, Ot Z91. 81 HISTORY OF FALLING 05/13/2019 FABIAN GOMES MD, Ot Z95. 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 VASCULAR ANGIOPLASTY STATUS W Procedures Code Description Performed By Per formed On [id number] EX CISION OF DUODENUM, ENDO 04/22/2016 [id number] EX CISION OF TRANSVERSE COLON, ENDO 04/23/2016 [id number] EX CISION OF RECTUM, ENDO 04/23/2016 Results Test Result Range Complete blood count (CBC) with automate d white blood cell (WBC) differential - 04/07/16 11:37 Blood leukocytes automated count (number/volume) 12.1 10*3/uL 4.3-11.0 Blood erythrocytes automated count (number/volume) 4.23 10*6/uL 4.35-5.85 Venous blood hemoglobin measurement (mass/volume) 11.9 g/dL 13.3-17.7 Blood hematocrit (volume fraction) 38 % 40-54 Automated erythrocyte mean corpuscular volume 89 [ foz_us] 80-99 Automated erythrocyte mean corpuscular h emoglobin (mass per erythrocyte) 28 pg 25-34 Automated erythrocyte mean corpuscular h emoglobin concentration measurement (mass/volume) 32 g/dL 32-36 Automated erythrocyte distribution width ratio 15. 7 % 10.0- 14.5 Automated blood platelet count (count/volume) 248 10*3/uL 130-400 Automated blood platelet mean volume measurement 10.0 [foz_us] 7.4-10.4 Automated blood neutrophils/100 leukocytes 89 % 42-75 Automated blood lymphocytes/100 leukocytes 5 % 12-44 Blood monocytes/100 leukocytes 6 % 0-12 Automated blood eosinophils/100 leukocytes 0 % 0-10 Automated blood basophils/100 leukocytes 0 % 0-10 Blood neutrophils automated count (number/volume) 10.8 10*3 1.8-7.8 Blood lymphocytes automated count (number/volume) 0.6 10*3 1.0-4.0 Blood monocytes automated count (number/volume) 0. 8 10*3 0.0-1.0 Automated eosinophil count 0.0 10*3/uL 0 .0-0.3 Automated blood basophil count (count/volume) 0.0 10*3/uL 0.0-0.1 PT panel in platelet poor plasma by coag ulation assay - 04/07/16 11:37 Prothrombin time (PT) in platelet poor plasma by coagu lation assay 16.6 s 12.2-14.7 INR in platelet poor plasma or blood by coagulation as say 1.4 0.8-1.4 Blood lactic acid measurement (moles/vol ume) - 04/07/16 11:37 Blood lactic acid measurement (moles/volume) 1.2 m mol/L 0.5- 2.0 Comprehensive metabolic panel - 04/07/16 11:37 Serum or plasma sodium measurement (moles/volume) 145 mmol/L 135-145 Serum or plasma potassium measurement (moles/volume) 4.0 mmol/L 3.6-5.0 Serum or plasma chloride measurement (moles/volume) 111 mmol/L 98-107 Carbon dioxide 19 mmol/L 21-32 Serum or plasma anion gap determination (moles/volume) 15 mmol/L 5-14 Serum or plasma urea nitrogen measurement (mass/volume ) 42 mg/dL 7-18 Serum or plasma creatinine measurement (mass/volume) 1.11 mg/dL 0.60-1.30 Serum or plasma urea nitrogen/creatinine mass ratio 38 NRG Serum or plasma creatinine measurement w ith calculation of estimated glomerular filtration rate > NRG Serum or plasma glucose measurement (mass/volume) 181 mg/dL 70-105 Serum or plasma calcium measurement (mass/volume) 9.1 mg/dL 8.5-10.1 Serum or plasma total bilirubin measurement (mass/volu me) 1.7 mg/dL 0.1-1.0 Serum or plasma alkaline phosphatase ana surement (enzymatic activity/volume) 82 U/L 40-136 Serum or plasma aspartate aminotransfera se measurement (enzymatic activity/volume) 44 U/L 5-34 Serum or plasma alanine aminotransferase measurement (enzymatic activity/volume) 51 U/L 0-55 Serum or plasma protein measurement (mass/volume) 6.2 g/dL 6.4-8.2 Serum or plasma albumin measurement (mass/volume) 3.8 g/dL 3.2-4.5 Serum or plasma creatine kinase measurem ent (enzymatic activity/volume) - 04/07/16 11:37 Serum or plasma creatine kinase measurem ent (enzymatic activity/volume) 361 U/L 30-200 Serum or plasma troponin i.cardiac measu rement (mass/volume) - 04/07/16 11:37 Serum or plasma troponin i.cardiac measurement (mass/v olume) < ng/mL <0.30 Myoglobin, serum - 04/07/16 11:37 Myoglobin, serum 529.3 ng/mL 10.0-92.0 Blood manual differential performed dete ction - 04/07/16 11:37 Blood monocytes/100 leukocytes 3 % NRG Manual blood segmented neutrophils/100 leukocytes 93 % NRG Blood band neutrophils/100 leukocytes 1 % NRG Manual blood lymphocytes/100 leukocytes 3 % NRG Manual eosinophils/100 leukocytes in nose 0 % NRG Manual blood basophils/100 leukocytes 0 % NRG Serum or plasma lithium measurement (mol es/volume) - 04/07/16 11:37 BNP level 761.0 pg/mL <100.0 Bacterial blood culture - 04/07/16 11:37 FREE TEXT EXTERNAL SEE COMMENTS NRG QUANTITY OF GROWTH Isolated NRG Bacterial blood culture [id number] NRG Bacterial blood culture - 04/07/16 12:15 Bacterial blood culture NG NRG Complete urinalysis with reflex to cultu re - 04/07/16 13:24 Urine color determination YELLOW NRG Urine clarity determination CLEAR NR G Urine pH measurement by test strip 6 5-9 Specific gravity of urine by test strip 1.020 1.016-1.022 Urine protein assay by test strip, semi-quantitative 3+ NEGATIVE Urine glucose detection by automated test strip NE GATIVE NEGATIVE Erythrocytes detection in urine sediment by light micr oscopy 5+ NEGATIVE Urine ketones detection by automated test strip 4+ NEGATIVE Urine nitrite detection by test strip NEGATIVE NEGATIVE Urine total bilirubin detection by test strip NEGA TIVE NEGATIVE Urine urobilinogen measurement by automated test strip (mass/volume) 4 mg/dL NORMAL Urine leukocyte esterase detection by dipstick 1+ NEGATIVE Automated urine sediment erythrocyte cou nt by microscopy (number/high power field) [HPF] NRG Automated urine sediment leukocyte count by microscopy (number/high power field) [HPF] NRG Bacteria detection in urine sediment by light microsco py FEW NRG Crystals detection in urine sediment by light microsco py PRESENT NRG Casts detection in urine sediment by light microscopy NONE NRG Mucus detection in urine sediment by light microscopy NEGATIVE NRG Complete urinalysis with reflex to culture YES NRG Amorphous sediment detection in urine sediment by ligh t microscopy FEW EUGENE URATES NRG Other elements identification in urine sediment by lig ht microscopy FEW SPERM NRG Bacterial urine culture - 04/07/16 13:24 Bacterial urine culture NG NRG Capillary blood glucose measurement by g lucometer (mass/volume) - 04/07/16 17:13 Capillary blood glucose measurement by glucometer (mas s/volume) 165 mg/dL 70-110 Capillary blood glucose measurement by g lucometer (mass/volume) - 04/07/16 20:43 Capillary blood glucose measurement by glucometer (mas s/volume) 258 mg/dL 70-110 Capillary blood glucose measurement by g lucometer (mass/volume) - 04/08/16 05:52 Capillary blood glucose measurement by glucometer (mas s/volume) 136 mg/dL 70-110 Whole blood basic metabolic panel - 03/17 06/30 11:05 Serum or plasma sodium measurement (moles/volume) 140 mmol/L 135-145 Serum or plasma potassium measurement (moles/volume) 3.8 mmol/L 3.6-5.0 Serum or plasma chloride measurement (moles/volume) 108 mmol/L 98-107 Carbon dioxide 22 mmol/L 21-32 Serum or plasma anion gap determination (moles/volume) 10 mmol/L 5-14 Serum or plasma urea nitrogen measurement (mass/volume ) 37 mg/dL 7-18 Serum or plasma creatinine measurement (mass/volume) 1.22 mg/dL 0.60-1.30 Serum or plasma urea nitrogen/creatinine mass ratio 30 NRG Serum or plasma creatinine measurement w ith calculation of estimated glomerular filtration rate 58 NRG Serum or plasma glucose measurement (mass/volume) 301 mg/dL 70-105 Serum or plasma calcium measurement (mass/volume) 8.4 mg/dL 8.5-10.1 Capillary blood glucose measurement by g lucometer (mass/volume) - 04/08/16 11:11 Capillary blood glucose measurement by glucometer (mas s/volume) 290 mg/dL 70-110 Capillary blood glucose measurement by g lucometer (mass/volume) - 04/08/16 16:14 Capillary blood glucose measurement by glucometer (mas s/volume) 209 mg/dL 70-110 Capillary blood glucose measurement by g lucometer (mass/volume) - 04/08/16 21:03 Capillary blood glucose measurement by glucometer (mas s/volume) 200 mg/dL 70-110 Complete blood count (CBC) with automate d white blood cell (WBC) differential - 04/09/16 05:00 Blood leukocytes automated count (number/volume) 7.8 10*3/uL 4.3-11.0 Blood erythrocytes automated count (number/volume) 3.83 10*6/uL 4.35-5.85 Venous blood hemoglobin measurement (mass/volume) 10.6 g/dL 13.3-17.7 Blood hematocrit (volume fraction) 33 % 40-54 Automated erythrocyte mean corpuscular volume 87 [ foz_us] 80-99 Automated erythrocyte mean corpuscular h emoglobin (mass per erythrocyte) 28 pg 25-34 Automated erythrocyte mean corpuscular h emoglobin concentration measurement (mass/volume) 32 g/dL 32-36 Automated erythrocyte distribution width ratio 15. 6 % 10.0- 14.5 Automated blood platelet count (count/volume) 210 10*3/uL 130-400 Automated blood platelet mean volume measurement 10.2 [foz_us] 7.4-10.4 Automated blood neutrophils/100 leukocytes 78 % 42-75 Automated blood lymphocytes/100 leukocytes 11 % 12-44 Blood monocytes/100 leukocytes 10 % 0-12 Automated blood eosinophils/100 leukocytes 2 % 0-10 Automated blood basophils/100 leukocytes 0 % 0-10 Blood neutrophils automated count (number/volume) 6.0 10*3 1.8-7.8 Blood lymphocytes automated count (number/volume) 0.8 10*3 1.0-4.0 Blood monocytes automated count (number/volume) 0. 8 10*3 0.0-1.0 Automated eosinophil count 0.1 10*3/uL 0 .0-0.3 Automated blood basophil count (count/volume) 0.0 10*3/uL 0.0-0.1 Comprehensive metabolic panel - 04/09/16 05:00 Serum or plasma sodium measurement (moles/volume) 140 mmol/L 135-145 Serum or plasma potassium measurement (moles/volume) 3.7 mmol/L 3.6-5.0 Serum or plasma chloride measurement (moles/volume) 108 mmol/L 98-107 Carbon dioxide 23 mmol/L 21-32 Serum or plasma anion gap determination (moles/volume) 9 mmol/L 5-14 Serum or plasma urea nitrogen measurement (mass/volume ) 38 mg/dL 7-18 Serum or plasma creatinine measurement (mass/volume) 1.03 mg/dL 0.60-1.30 Serum or plasma urea nitrogen/creatinine mass ratio 37 NRG Serum or plasma creatinine measurement w ith calculation of estimated glomerular filtration rate > NRG Serum or plasma glucose measurement (mass/volume) 190 mg/dL 70-105 Serum or plasma calcium measurement (mass/volume) 8.3 mg/dL 8.5-10.1 Serum or plasma total bilirubin measurement (mass/volu me) 1.0 mg/dL 0.1-1.0 Serum or plasma alkaline phosphatase ana surement (enzymatic activity/volume) 67 U/L 40-136 Serum or plasma aspartate aminotransfera se measurement (enzymatic activity/volume) 24 U/L 5-34 Serum or plasma alanine aminotransferase measurement (enzymatic activity/volume) 39 U/L 0-55 Serum or plasma protein measurement (mass/volume) 4.8 g/dL 6.4-8.2 Serum or plasma albumin measurement (mass/volume) 3.0 g/dL 3.2-4.5 Magnesium - 04/09/16 05:00 Magnesium 1.6 mg/dL 1.8-2.4 Capillary blood glucose measurement by g lucometer (mass/volume) - 04/09/16 10:57 Capillary blood glucose measurement by glucometer (mas s/volume) 284 mg/dL 70-110 Capillary blood glucose measurement by g lucometer (mass/volume) - 04/09/16 16:09 Capillary blood glucose measurement by glucometer (mas s/volume) 231 mg/dL 70-110 Capillary blood glucose measurement by g lucometer (mass/volume) - 04/09/16 20:42 Capillary blood glucose measurement by glucometer (mas s/volume) 241 mg/dL 70-110 Capillary blood glucose measurement by g lucometer (mass/volume) - 04/10/16 05:50 Capillary blood glucose measurement by glucometer (mas s/volume) 188 mg/dL 70-110 Capillary blood glucose measurement by g lucometer (mass/volume) - 04/10/16 11:16 Capillary blood glucose measurement by glucometer (mas s/volume) 349 mg/dL 70-110 Capillary blood glucose measurement by g lucometer (mass/volume) - 04/10/16 16:35 Capillary blood glucose measurement by glucometer (mas s/volume) 179 mg/dL 70-110 Capillary blood glucose measurement by g lucometer (mass/volume) - 04/10/16 20:07 Capillary blood glucose measurement by glucometer (mas s/volume) 218 mg/dL 70-110 Capillary blood glucose measurement by g lucometer (mass/volume) - 04/11/16 06:20 Capillary blood glucose measurement by glucometer (mas s/volume) 205 mg/dL 70-110 Whole blood basic metabolic panel - 03/17 09/29 06:21 Serum or plasma sodium measurement (moles/volume) 135 mmol/L 135-145 Serum or plasma potassium measurement (moles/volume) 4.6 mmol/L 3.6-5.0 Serum or plasma chloride measurement (moles/volume) 103 mmol/L 98-107 Carbon dioxide 23 mmol/L 21-32 Serum or plasma anion gap determination (moles/volume) 9 mmol/L 5-14 Serum or plasma urea nitrogen measurement (mass/volume ) 44 mg/dL 7-18 Serum or plasma creatinine measurement (mass/volume) 1.23 mg/dL 0.60-1.30 Serum or plasma urea nitrogen/creatinine mass ratio 36 NRG Serum or plasma creatinine measurement w ith calculation of estimated glomerular filtration rate 57 NRG Serum or plasma glucose measurement (mass/volume) 220 mg/dL 70-105 Serum or plasma calcium measurement (mass/volume) 8.8 mg/dL 8.5-10.1 Magnesium - 04/11/16 06:21 Magnesium 1.9 mg/dL 1.8-2.4 Capillary blood glucose measurement by g lucometer (mass/volume) - 04/11/16 11:39 Capillary blood glucose measurement by glucometer (mas s/volume) 207 mg/dL 70-110 Capillary blood glucose measurement by g lucometer (mass/volume) - 04/11/16 16:55 Capillary blood glucose measurement by glucometer (mas s/volume) 150 mg/dL 70-110 Capillary blood glucose measurement by g lucometer (mass/volume) - 04/11/16 20:18 Capillary blood glucose measurement by glucometer (mas s/volume) 168 mg/dL 70-110 Capillary blood glucose measurement by g lucometer (mass/volume) - 04/12/16 05:36 Capillary blood glucose measurement by glucometer (mas s/volume) 189 mg/dL 70-110 Capillary blood glucose measurement by g lucometer (mass/volume) - 04/12/16 10:33 Capillary blood glucose measurement by glucometer (mas s/volume) 279 mg/dL 70-110 Capillary blood glucose measurement by g lucometer (mass/volume) - 04/12/16 15:55 Capillary blood glucose measurement by glucometer (mas s/volume) 118 mg/dL 70-110 Capillary blood glucose measurement by g lucometer (mass/volume) - 04/12/16 20:43 Capillary blood glucose measurement by glucometer (mas s/volume) 258 mg/dL 70-110 Complete blood count (CBC) with automate d white blood cell (WBC) differential - 04/13/16 04:35 Blood leukocytes automated count (number/volume) 6.7 10*3/uL 4.3-11.0 Blood erythrocytes automated count (number/volume) 3.48 10*6/uL 4.35-5.85 Venous blood hemoglobin measurement (mass/volume) 9.7 g/dL 13.3-17.7 Blood hematocrit (volume fraction) 30 % 40-54 Automated erythrocyte mean corpuscular volume 87 [ foz_us] 80-99 Automated erythrocyte mean corpuscular h emoglobin (mass per erythrocyte) 28 pg 25-34 Automated erythrocyte mean corpuscular h emoglobin concentration measurement (mass/volume) 32 g/dL 32-36 Automated erythrocyte distribution width ratio 16. 3 % 10.0- 14.5 Automated blood platelet count (count/volume) 185 10*3/uL 130-400 Automated blood platelet mean volume measurement 10.9 [foz_us] 7.4-10.4 Automated blood neutrophils/100 leukocytes 74 % 42-75 Automated blood lymphocytes/100 leukocytes 14 % 12-44 Blood monocytes/100 leukocytes 10 % 0-12 Automated blood eosinophils/100 leukocytes 3 % 0-10 Automated blood basophils/100 leukocytes 0 % 0-10 Blood neutrophils automated count (number/volume) 4.9 10*3 1.8-7.8 Blood lymphocytes automated count (number/volume) 0.9 10*3 1.0-4.0 Blood monocytes automated count (number/volume) 0. 7 10*3 0.0-1.0 Automated eosinophil count 0.2 10*3/uL 0 .0-0.3 Automated blood basophil count (count/volume) 0.0 10*3/uL 0.0-0.1 Whole blood basic metabolic panel - 03/17 11/30 04:35 Serum or plasma sodium measurement (moles/volume) 134 mmol/L 135-145 Serum or plasma potassium measurement (moles/volume) 4.8 mmol/L 3.6-5.0 Serum or plasma chloride measurement (moles/volume) 104 mmol/L 98-107 Carbon dioxide 22 mmol/L 21-32 Serum or plasma anion gap determination (moles/volume) 8 mmol/L 5-14 Serum or plasma urea nitrogen measurement (mass/volume ) 60 mg/dL 7-18 Serum or plasma creatinine measurement (mass/volume) 1.63 mg/dL 0.60-1.30 Serum or plasma urea nitrogen/creatinine mass ratio 37 NRG Serum or plasma creatinine measurement w ith calculation of estimated glomerular filtration rate 41 NRG Serum or plasma glucose measurement (mass/volume) 140 mg/dL 70-105 Serum or plasma calcium measurement (mass/volume) 8.8 mg/dL 8.5-10.1 Magnesium - 04/13/16 04:35 Magnesium 1.9 mg/dL 1.8-2.4 Capillary blood glucose measurement by g lucometer (mass/volume) - 04/13/16 05:15 Capillary blood glucose measurement by glucometer (mas s/volume) 146 mg/dL 70-110 Complete urinalysis with reflex to cultu re - 04/13/16 09:40 Urine color determination YELLOW NRG Urine clarity determination CLEAR NR G Urine pH measurement by test strip 5 5-9 Specific gravity of urine by test strip 1.020 1.016-1.022 Urine protein assay by test strip, semi-quantitative 1+ NEGATIVE Urine glucose detection by automated test strip NE GATIVE NEGATIVE Erythrocytes detection in urine sediment by light micr oscopy 5+ NEGATIVE Urine ketones detection by automated test strip NE GATIVE NEGATIVE Urine nitrite detection by test strip NEGATIVE NEGATIVE Urine total bilirubin detection by test strip NEGA TIVE NEGATIVE Urine urobilinogen measurement by automated test strip (mass/volume) NORMAL NORMAL Urine leukocyte esterase detection by dipstick 1+ NEGATIVE Automated urine sediment erythrocyte cou nt by microscopy (number/high power field) [HPF] NRG Automated urine sediment leukocyte count by microscopy (number/high power field) [HPF] NRG Bacteria detection in urine sediment by light microsco py NEGATIVE NRG Squamous epithelial cells detection in u rine sediment by light microscopy 2-5 NRG Crystals detection in urine sediment by light microsco py NONE NRG Casts detection in urine sediment by light microscopy NONE NRG Mucus detection in urine sediment by light microscopy NEGATIVE NRG Complete urinalysis with reflex to culture NO NRG Capillary blood glucose measurement by g lucometer (mass/volume) - 04/13/16 11:07 Capillary blood glucose measurement by glucometer (mas s/volume) 239 mg/dL 70-110 Capillary blood glucose measurement by g lucometer (mass/volume) - 04/13/16 15:52 Capillary blood glucose measurement by glucometer (mas s/volume) 205 mg/dL 70-110 Capillary blood glucose measurement by g lucometer (mass/volume) - 04/13/16 20:42 Capillary blood glucose measurement by glucometer (mas s/volume) 143 mg/dL 70-110 Capillary blood glucose measurement by g lucometer (mass/volume) - 04/14/16 04:47 Capillary blood glucose measurement by glucometer (mas s/volume) 168 mg/dL 70-110 Complete blood count (CBC) with automate d white blood cell (WBC) differential - 04/14/16 04:55 Blood leukocytes automated count (number/volume) 7.1 10*3/uL 4.3-11.0 Blood erythrocytes automated count (number/volume) 3.39 10*6/uL 4.35-5.85 Venous blood hemoglobin measurement (mass/volume) 9.4 g/dL 13.3-17.7 Blood hematocrit (volume fraction) 29 % 40-54 Automated erythrocyte mean corpuscular volume 86 [ foz_us] 80-99 Automated erythrocyte mean corpuscular h emoglobin (mass per erythrocyte) 28 pg 25-34 Automated erythrocyte mean corpuscular h emoglobin concentration measurement (mass/volume) 32 g/dL 32-36 Automated erythrocyte distribution width ratio 16. 4 % 10.0- 14.5 Automated blood platelet count (count/volume) 172 10*3/uL 130-400 Automated blood platelet mean volume measurement 11.3 [foz_us] 7.4-10.4 Automated blood neutrophils/100 leukocytes 75 % 42-75 Automated blood lymphocytes/100 leukocytes 13 % 12-44 Blood monocytes/100 leukocytes 10 % 0-12 Automated blood eosinophils/100 leukocytes 2 % 0-10 Automated blood basophils/100 leukocytes 0 % 0-10 Blood neutrophils automated count (number/volume) 5.3 10*3 1.8-7.8 Blood lymphocytes automated count (number/volume) 0.9 10*3 1.0-4.0 Blood monocytes automated count (number/volume) 0. 7 10*3 0.0-1.0 Automated eosinophil count 0.2 10*3/uL 0 .0-0.3 Automated blood basophil count (count/volume) 0.0 10*3/uL 0.0-0.1 Whole blood basic metabolic panel - 03/18 04:55 Serum or plasma sodium measurement (moles/volume) 133 mmol/L 135-145 Serum or plasma potassium measurement (moles/volume) 4.8 mmol/L 3.6-5.0 Serum or plasma chloride measurement (moles/volume) 102 mmol/L 98-107 Carbon dioxide 22 mmol/L 21-32 Serum or plasma anion gap determination (moles/volume) 9 mmol/L 5-14 Serum or plasma urea nitrogen measurement (mass/volume ) 71 mg/dL 7-18 Serum or plasma creatinine measurement (mass/volume) 1.86 mg/dL 0.60-1.30 Serum or plasma urea nitrogen/creatinine mass ratio 38 NRG Serum or plasma creatinine measurement w ith calculation of estimated glomerular filtration rate 36 NRG Serum or plasma glucose measurement (mass/volume) 163 mg/dL 70-105 Serum or plasma calcium measurement (mass/volume) 8.7 mg/dL 8.5-10.1 Magnesium - 04/14/16 04:55 Magnesium 1.9 mg/dL 1.8-2.4 Capillary blood glucose measurement by g lucometer (mass/volume) - 04/14/16 11:03 Capillary blood glucose measurement by glucometer (mas s/volume) 256 mg/dL 70-110 Capillary blood glucose measurement by g lucometer (mass/volume) - 04/14/16 16:16 Capillary blood glucose measurement by glucometer (mas s/volume) 226 mg/dL 70-110 Capillary blood glucose measurement by g lucometer (mass/volume) - 04/14/16 21:02 Capillary blood glucose measurement by glucometer (mas s/volume) 177 mg/dL 70-110 Complete blood count (CBC) with automate d white blood cell (WBC) differential - 04/15/16 04:47 Blood leukocytes automated count (number/volume) 4.5 10*3/uL 4.3-11.0 Blood erythrocytes automated count (number/volume) 3.46 10*6/uL 4.35-5.85 Venous blood hemoglobin measurement (mass/volume) 9.6 g/dL 13.3-17.7 Blood hematocrit (volume fraction) 30 % 40-54 Automated erythrocyte mean corpuscular volume 86 [ foz_us] 80-99 Automated erythrocyte mean corpuscular h emoglobin (mass per erythrocyte) 28 pg 25-34 Automated erythrocyte mean corpuscular h emoglobin concentration measurement (mass/volume) 32 g/dL 32-36 Automated erythrocyte distribution width ratio 16. 5 % 10.0- 14.5 Automated blood platelet count (count/volume) 162 10*3/uL 130-400 Automated blood platelet mean volume measurement 11.5 [foz_us] 7.4-10.4 Automated blood neutrophils/100 leukocytes 71 % 42-75 Automated blood lymphocytes/100 leukocytes 13 % 12-44 Blood monocytes/100 leukocytes 14 % 0-12 Automated blood eosinophils/100 leukocytes 1 % 0-10 Automated blood basophils/100 leukocytes 0 % 0-10 Blood neutrophils automated count (number/volume) 3.2 10*3 1.8-7.8 Blood lymphocytes automated count (number/volume) 0.6 10*3 1.0-4.0 Blood monocytes automated count (number/volume) 0. 7 10*3 0.0-1.0 Automated eosinophil count 0.0 10*3/uL 0 .0-0.3 Automated blood basophil count (count/volume) 0.0 10*3/uL 0.0-0.1 Whole blood basic metabolic panel - 03/18 04/01 04:47 Serum or plasma sodium measurement (moles/volume) 135 mmol/L 135-145 Serum or plasma potassium measurement (moles/volume) 4.8 mmol/L 3.6-5.0 Serum or plasma chloride measurement (moles/volume) 103 mmol/L 98-107 Carbon dioxide 21 mmol/L -32 Serum or plasma anion gap determination (moles/volume) 11 mmol/L 5-14 Serum or plasma urea nitrogen measurement (mass/volume ) 61 mg/dL 7-18 Serum or plasma creatinine measurement (mass/volume) 1.70 mg/dL 0.60-1.30 Serum or plasma urea nitrogen/creatinine mass ratio 36 NRG Serum or plasma creatinine measurement w ith calculation of estimated glomerular filtration rate 39 NRG Serum or plasma glucose measurement (mass/volume) 129 mg/dL 70-105 Serum or plasma calcium measurement (mass/volume) 9.0 mg/dL 8.5-10.1 Magnesium - 04/15/16 04:47 Magnesium 2.1 mg/dL 1.8-2.4 Capillary blood glucose measurement by g lucometer (mass/volume) - 04/15/16 13:51 Capillary blood glucose measurement by glucometer (mas s/volume) 249 mg/dL 70-110 Capillary blood glucose measurement by g lucometer (mass/volume) - 04/15/16 15:51 Capillary blood glucose measurement by glucometer (mas s/volume) 218 mg/dL 70-110 Capillary blood glucose measurement by g lucometer (mass/volume) - 04/15/16 20:43 Capillary blood glucose measurement by glucometer (mas s/volume) 183 mg/dL 70-110 Whole blood basic metabolic panel - 04/01 04:45 Serum or plasma sodium measurement (moles/volume) 135 mmol/L 135-145 Serum or plasma potassium measurement (moles/volume) 4.8 mmol/L 3.6-5.0 Serum or plasma chloride measurement (moles/volume) 103 mmol/L 98-107 Carbon dioxide 23 mmol/L -32 Serum or plasma anion gap determination (moles/volume) 9 mmol/L 5-14 Serum or plasma urea nitrogen measurement (mass/volume ) 55 mg/dL 7-18 Serum or plasma creatinine measurement (mass/volume) 1.72 mg/dL 0.60-1.30 Serum or plasma urea nitrogen/creatinine mass ratio 32 NRG Serum or plasma creatinine measurement w ith calculation of estimated glomerular filtration rate 39 NRG Serum or plasma glucose measurement (mass/volume) 195 mg/dL 70-105 Serum or plasma calcium measurement (mass/volume) 8.6 mg/dL 8.5-10.1 Magnesium - 04/16/16 04:45 Magnesium 1.9 mg/dL 1.8-2.4 Capillary blood glucose measurement by g lucometer (mass/volume) - 04/16/16 11:17 Capillary blood glucose measurement by glucometer (mas s/volume) 230 mg/dL 70-110 Capillary blood glucose measurement by g lucometer (mass/volume) - 04/19/16 17:23 Capillary blood glucose measurement by glucometer (mas s/volume) 129 mg/dL 70-110 Complete blood count (CBC) with automate d white blood cell (WBC) differential - 04/19/16 18:16 Blood leukocytes automated count (number/volume) 6.0 10*3/uL 4.3-11.0 Blood erythrocytes automated count (number/volume) 3.17 10*6/uL 4.35-5.85 Venous blood hemoglobin measurement (mass/volume) 8.8 g/dL 13.3-17.7 Blood hematocrit (volume fraction) 28 % 40-54 Automated erythrocyte mean corpuscular volume 87 [ foz_us] 80-99 Automated erythrocyte mean corpuscular h emoglobin (mass per erythrocyte) 28 pg 25-34 Automated erythrocyte mean corpuscular h emoglobin concentration measurement (mass/volume) 32 g/dL 32-36 Automated erythrocyte distribution width ratio 17. 5 % 10.0- 14.5 Automated blood platelet count (count/volume) 182 10*3/uL 130-400 Automated blood platelet mean volume measurement 10.9 [foz_us] 7.4-10.4 Automated blood neutrophils/100 leukocytes 77 % 42-75 Automated blood lymphocytes/100 leukocytes 12 % 12-44 Blood monocytes/100 leukocytes 10 % 0-12 Automated blood eosinophils/100 leukocytes 0 % 0-10 Automated blood basophils/100 leukocytes 0 % 0-10 Blood neutrophils automated count (number/volume) 4.6 10*3 1.8-7.8 Blood lymphocytes automated count (number/volume) 0.7 10*3 1.0-4.0 Blood monocytes automated count (number/volume) 0. 6 10*3 0.0-1.0 Automated eosinophil count 0.0 10*3/uL 0 .0-0.3 Automated blood basophil count (count/volume) 0.0 10*3/uL 0.0-0.1 Comprehensive metabolic panel - 04/19/16 18:16 Serum or plasma sodium measurement (moles/volume) 136 mmol/L 135-145 Serum or plasma potassium measurement (moles/volume) 3.5 mmol/L 3.6-5.0 Serum or plasma chloride measurement (moles/volume) 101 mmol/L 98-107 Carbon dioxide 23 mmol/L 21-32 Serum or plasma anion gap determination (moles/volume) 12 mmol/L 5-14 Serum or plasma urea nitrogen measurement (mass/volume ) 37 mg/dL 7-18 Serum or plasma creatinine measurement (mass/volume) 1.07 mg/dL 0.60-1.30 Serum or plasma urea nitrogen/creatinine mass ratio 35 NRG Serum or plasma creatinine measurement w ith calculation of estimated glomerular filtration rate > NRG Serum or plasma glucose measurement (mass/volume) 70 mg/dL 70-105 Serum or plasma calcium measurement (mass/volume) 8.7 mg/dL 8.5-10.1 Serum or plasma total bilirubin measurement (mass/volu me) 0.9 mg/dL 0.1-1.0 Serum or plasma alkaline phosphatase ana surement (enzymatic activity/volume) 114 U/L 40-136 Serum or plasma aspartate aminotransfera se measurement (enzymatic activity/volume) 30 U/L 5-34 Serum or plasma alanine aminotransferase measurement (enzymatic activity/volume) 35 U/L 0-55 Serum or plasma protein measurement (mass/volume) 6.2 g/dL 6.4-8.2 Serum or plasma albumin measurement (mass/volume) 3.7 g/dL 3.2-4.5 Hemoglobin A1c - 04/19/16 18:16 Hemoglobin A1c 6.0 % 4.5-6.2 Complete urinalysis with reflex to cultu re - 04/19/16 18:30 Urine color determination YELLOW NRG Urine clarity determination CLEAR NR G Urine pH measurement by test strip 5 5-9 Specific gravity of urine by test strip 1.015 1.016-1.022 Urine protein assay by test strip, semi-quantitative 3+ NEGATIVE Urine glucose detection by automated test strip 2+ NEGATIVE Erythrocytes detection in urine sediment by light micr oscopy 5+ NEGATIVE Urine ketones detection by automated test strip 1+ NEGATIVE Urine nitrite detection by test strip NEGATIVE NEGATIVE Urine total bilirubin detection by test strip NEGA TIVE NEGATIVE Urine urobilinogen measurement by automated test strip (mass/volume) NORMAL NORMAL Urine leukocyte esterase detection by dipstick 1+ NEGATIVE Automated urine sediment erythrocyte cou nt by microscopy (number/high power field) [HPF] NRG Automated urine sediment leukocyte count by microscopy (number/high power field) [HPF] NRG Bacteria detection in urine sediment by light microsco py TRACE NRG Squamous epithelial cells detection in u rine sediment by light microscopy 2-5 NRG Crystals detection in urine sediment by light microsco py NONE NRG Casts detection in urine sediment by light microscopy NONE NRG Mucus detection in urine sediment by light microscopy NEGATIVE NRG Complete urinalysis with reflex to culture YES NRG Bacterial urine culture - 04/19/16 18:30 URINE CULTURE RESULTS <10,000/ML NRG Capillary blood glucose measurement by g lucometer (mass/volume) - 04/19/16 19:01 Capillary blood glucose measurement by glucometer (mas s/volume) 83 mg/dL 70-110 Capillary blood glucose measurement by g lucometer (mass/volume) - 04/21/16 10:44 Capillary blood glucose measurement by glucometer (mas s/volume) 81 mg/dL 70-110 Complete blood count (CBC) with automate d white blood cell (WBC) differential - 04/21/16 10:58 Blood leukocytes automated count (number/volume) 12.6 10*3/uL 4.3-11.0 Blood erythrocytes automated count (number/volume) 2.85 10*6/uL 4.35-5.85 Venous blood hemoglobin measurement (mass/volume) 8.0 g/dL 13.3-17.7 Blood hematocrit (volume fraction) 25 % 40-54 Automated erythrocyte mean corpuscular volume 89 [ foz_us] 80-99 Automated erythrocyte mean corpuscular h emoglobin (mass per erythrocyte) 28 pg 25-34 Automated erythrocyte mean corpuscular h emoglobin concentration measurement (mass/volume) 32 g/dL 32-36 Automated erythrocyte distribution width ratio 18. 0 % 10.0- 14.5 Automated blood platelet count (count/volume) 234 10*3/uL 130-400 Automated blood platelet mean volume measurement 10.4 [foz_us] 7.4-10.4 Automated blood neutrophils/100 leukocytes 90 % 42-75 Automated blood lymphocytes/100 leukocytes 6 % 12-44 Blood monocytes/100 leukocytes 4 % 0-12 Automated blood eosinophils/100 leukocytes 0 % 0-10 Automated blood basophils/100 leukocytes 0 % 0-10 Blood neutrophils automated count (number/volume) 11.3 10*3 1.8-7.8 Blood lymphocytes automated count (number/volume) 0.8 10*3 1.0-4.0 Blood monocytes automated count (number/volume) 0. 5 10*3 0.0-1.0 Automated eosinophil count 0.0 10*3/uL 0 .0-0.3 Automated blood basophil count (count/volume) 0.0 10*3/uL 0.0-0.1 Blood manual differential performed dete ction - 04/21/16 10:58 Blood monocytes/100 leukocytes 1 % NRG Manual blood segmented neutrophils/100 leukocytes 89 % NRG Blood band neutrophils/100 leukocytes 0 % NRG Manual blood lymphocytes/100 leukocytes 10 % NRG Manual eosinophils/100 leukocytes in nose 0 % NRG Manual blood basophils/100 leukocytes 0 % NRG Blood anisocytosis detection by light microscopy M ARKED NRG Blood hypochromia detection by light microscopy SL IGHT NRG PT panel in platelet poor plasma by coag ulation assay - 04/21/16 10:58 Prothrombin time (PT) in platelet poor plasma by coagu lation assay 16.6 s 12.2-14.7 INR in platelet poor plasma or blood by coagulation as say 1.4 0.8-1.4 Activated partial thromboplastin time (a PTT) in platelet poor plasma bycoagulation assay - 04/21/16 10:58 Activated partial thromboplastin time (a PTT) in platelet poor plasma bycoagulation assay 31 s 24-35 Fibrin D-dimer FEU measurement in platel et poor plasma (mass/volume) - 04/21/16 10:58 Fibrin D-dimer FEU measurement in platelet poor plasma (mass/volume) 0.79 ug/mL 0.00-0.49 Comprehensive metabolic panel - 04/21/16 10:58 Serum or plasma sodium measurement (moles/volume) 137 mmol/L 135-145 Serum or plasma potassium measurement (moles/volume) 3.9 mmol/L 3.6-5.0 Serum or plasma chloride measurement (moles/volume) 104 mmol/L 98-107 Carbon dioxide 18 mmol/L 21-32 Serum or plasma anion gap determination (moles/volume) 15 mmol/L 5-14 Serum or plasma urea nitrogen measurement (mass/volume ) 35 mg/dL 7-18 Serum or plasma creatinine measurement (mass/volume) 1.02 mg/dL 0.60-1.30 Serum or plasma urea nitrogen/creatinine mass ratio 34 NRG Serum or plasma creatinine measurement w ith calculation of estimated glomerular filtration rate > NRG Serum or plasma glucose measurement (mass/volume) 74 mg/dL 70-105 Serum or plasma calcium measurement (mass/volume) 8.4 mg/dL 8.5-10.1 Serum or plasma total bilirubin measurement (mass/volu me) 1.1 mg/dL 0.1-1.0 Serum or plasma alkaline phosphatase ana surement (enzymatic activity/volume) 106 U/L 40-136 Serum or plasma aspartate aminotransfera se measurement (enzymatic activity/volume) 30 U/L 5-34 Serum or plasma alanine aminotransferase measurement (enzymatic activity/volume) 32 U/L 0-55 Serum or plasma protein measurement (mass/volume) 5.9 g/dL 6.4-8.2 Serum or plasma albumin measurement (mass/volume) 3.5 g/dL 3.2-4.5 Serum or plasma troponin i.cardiac measu rement (mass/volume) - 04/21/16 10:58 Serum or plasma troponin i.cardiac measurement (mass/v olume) < ng/mL <0.30 Bacterial blood culture - 04/21/16 11:19 Bacterial blood culture NG NRG Blood lactic acid measurement (moles/vol ume) - 04/21/16 12:03 Blood lactic acid measurement (moles/volume) 3.5 m mol/L 0.5- 2.0 Serum or plasma creatine kinase measurem ent (enzymatic activity/volume) - 04/21/16 12:03 Serum or plasma creatine kinase measurem ent (enzymatic activity/volume) 198 U/L 30-200 Serum or plasma C reactive protein measu rement (mass/volume) - 04/21/16 12:03 Serum or plasma C reactive protein measurement (mass/v olume) 0.42 mg/dL 0.00-0.50 Serum or plasma lithium measurement (mol es/volume) - 04/21/16 12:03 BNP level 363.6 pg/mL <100.0 Bacterial blood culture - 04/21/16 12:03 Bacterial blood culture NG NRG RED CELLS LEUKO REDUCED AS1 - 04/21/16 1 2:15 RED CELLS LEUKO REDUCED AS1 T RANSFUSED 04/22/16 0531 NRG Blood type T Indirect antibody screen pa brannon - 04/21/16 12:15 ABO+Rh group BP NRG Transfusion band number [id number] NRG Blood group antibody screen NEGATIVE NR G Complete urinalysis with reflex to cultu re - 04/21/16 13:14 Urine color determination YELLOW NRG Urine clarity determination SLIGHTLY CLOUDY NRG Urine pH measurement by test strip 5 5-9 Specific gravity of urine by test strip 1.020 1.016-1.022 Urine protein assay by test strip, semi-quantitative 3+ NEGATIVE Urine glucose detection by automated test strip NE GATIVE NEGATIVE Erythrocytes detection in urine sediment by light micr oscopy 3+ NEGATIVE Urine ketones detection by automated test strip NE GATIVE NEGATIVE Urine nitrite detection by test strip NEGATIVE NEGATIVE Urine total bilirubin detection by test strip NEGA TIVE NEGATIVE Urine urobilinogen measurement by automated test strip (mass/volume) NORMAL NORMAL Urine leukocyte esterase detection by dipstick 2+ NEGATIVE Automated urine sediment erythrocyte cou nt by microscopy (number/high power field) [HPF] NRG Automated urine sediment leukocyte count by microscopy (number/high power field) [HPF] NRG Bacteria detection in urine sediment by light microsco py NEGATIVE NRG Squamous epithelial cells detection in u rine sediment by light microscopy 2-5 NRG Crystals detection in urine sediment by light microsco py NONE NRG Casts detection in urine sediment by light microscopy PRESENT NRG Mucus detection in urine sediment by light microscopy NEGATIVE NRG Complete urinalysis with reflex to culture YES NRG Hyaline casts detection in urine sediment by light lyn roscopy 5-10 NRG Bacterial urine culture - 04/21/16 13:14 Bacterial urine culture NG NRG Serum or plasma lactate measurement (mol es/volume) - 04/21/16 13:52 Serum or plasma lactate measurement (moles/volume) 2.0 mmol/L 0.5-2.0 Whole blood hemoglobin and hematocrit pa brannon - 04/21/16 21:44 Venous blood hemoglobin measurement (mass/volume) 7.0 g/dL 13.3-17.7 Blood hematocrit (volume fraction) 22 % 40-54 Capillary blood glucose measurement by g lucometer (mass/volume) - 04/21/16 22:13 Capillary blood glucose measurement by glucometer (mas s/volume) 30 mg/dL 70-110 Capillary blood glucose measurement by g lucometer (mass/volume) - 04/21/16 22:28 Capillary blood glucose measurement by glucometer (mas s/volume) 100 mg/dL 70-110 Capillary blood glucose measurement by g lucometer (mass/volume) - 04/21/16 23:03 Capillary blood glucose measurement by glucometer (mas s/volume) 70 mg/dL 70-110 Capillary blood glucose measurement by g lucometer (mass/volume) - 04/21/16 23:38 Capillary blood glucose measurement by glucometer (mas s/volume) 62 mg/dL 70-110 Capillary blood glucose measurement by g lucometer (mass/volume) - 04/22/16 00:16 Capillary blood glucose measurement by glucometer (mas s/volume) 103 mg/dL 70-110 Capillary blood glucose measurement by g lucometer (mass/volume) - 04/22/16 01:31 Capillary blood glucose measurement by glucometer (mas s/volume) 72 mg/dL 70-110 Stool occult blood screen - 04/22/16 05: 15 Stool gastrointestinal hemoglobin detection POSITI VE NEGATIVE Whole blood hemoglobin and hematocrit nandini [facility] [place] - 04/22/16 05:20 Venous blood hemoglobin measurement (mass/volume) 8.3 g/dL 13.3-17.7 Blood hematocrit (volume fraction) 26 % 40-54 Capillary blood glucose measurement by g lucometer (mass/volume) - 04/22/16 05:48 Capillary blood glucose measurement by glucometer (mas s/volume) 73 mg/dL 70-110 Capillary blood glucose measurement by g lucometer (mass/volume) - 04/22/16 10:47 Capillary blood glucose measurement by glucometer (mas s/volume) 121 mg/dL 70-110 Whole blood hemoglobin and hematocrit nandini [facility] - 04/22/16 14:03 Venous blood hemoglobin measurement (mass/volume) 9.8 g/dL 13.3-17.7 Blood hematocrit (volume fraction) 29 % 40-54 Capillary blood glucose measurement by g lucometer (mass/volume) - 04/22/16 15:55 Capillary blood glucose measurement by glucometer (mas s/volume) 122 mg/dL 70-110 Capillary blood glucose measurement by g lucometer (mass/volume) - 04/22/16 20:48 Capillary blood glucose measurement by glucometer (mas s/volume) 289 mg/dL 70-110 Whole blood hemoglobin and hematocrit [facility] - 04/22/16 22:38 Venous blood hemoglobin measurement (mass/volume) 10.1 g/dL 13.3-17.7 Blood hematocrit (volume fraction) 30 % 40-54 Capillary blood glucose measurement by g lucometer (mass/volume) - 04/23/16 05:15 Capillary blood glucose measurement by glucometer (mas s/volume) 200 mg/dL 70-110 Whole blood hemoglobin and hematocrit [facility] - 04/23/16 05:40 Venous blood hemoglobin measurement (mass/volume) 9.6 g/dL 13.3-17.7 Blood hematocrit (volume fraction) 29 % 40-54 Whole blood hemoglobin and hematocrit [facility] - 04/23/16 14:10 Venous blood hemoglobin measurement (mass/volume) 10.5 g/dL 13.3-17.7 Blood hematocrit (volume fraction) 32 % 40-54 Capillary blood glucose measurement by g lucometer (mass/volume) - 04/23/16 16:26 Capillary blood glucose measurement by glucometer (mas s/volume) 260 mg/dL 70-110 Capillary blood glucose measurement by g lucometer (mass/volume) - 04/23/16 21:22 Capillary blood glucose measurement by glucometer (mas s/volume) 283 mg/dL 70-110 Capillary blood glucose measurement by g lucometer (mass/volume) - 04/24/16 05:30 Capillary blood glucose measurement by glucometer (mas s/volume) 113 mg/dL 70-110 Complete blood count (CBC) with automate d white blood cell (WBC) differential - 04/24/16 06:12 Blood leukocytes automated count (number/volume) 6.3 10*3/uL 4.3-11.0 Blood erythrocytes automated count (number/volume) 3.34 10*6/uL 4.35-5.85 Venous blood hemoglobin measurement (mass/volume) 9.4 g/dL 13.3-17.7 Blood hematocrit (volume fraction) 29 % 40-54 Automated erythrocyte mean corpuscular volume 88 [ foz_us] 80-99 Automated erythrocyte mean corpuscular h emoglobin (mass per erythrocyte) 28 pg 25-34 Automated erythrocyte mean corpuscular h emoglobin concentration measurement (mass/volume) 32 g/dL 32-36 Automated erythrocyte distribution width ratio 17. 9 % 10.0- 14.5 Automated blood platelet count (count/volume) 206 10*3/uL 130-400 Automated blood platelet mean volume measurement 10.8 [foz_us] 7.4-10.4 Automated blood neutrophils/100 leukocytes 77 % 42-75 Automated blood lymphocytes/100 leukocytes 15 % 12-44 Blood monocytes/100 leukocytes 6 % 0-12 Automated blood eosinophils/100 leukocytes 2 % 0-10 Automated blood basophils/100 leukocytes 0 % 0-10 Blood neutrophils automated count (number/volume) 4.8 10*3 1.8-7.8 Blood lymphocytes automated count (number/volume) 0.9 10*3 1.0-4.0 Blood monocytes automated count (number/volume) 0. 4 10*3 0.0-1.0 Automated eosinophil count 0.1 10*3/uL 0 .0-0.3 Automated blood basophil count (count/volume) 0.0 10*3/uL 0.0-0.1 Comprehensive metabolic panel - 04/24/16 06:12 Serum or plasma sodium measurement (moles/volume) 138 mmol/L 135-145 Serum or plasma potassium measurement (moles/volume) 3.6 mmol/L 3.6-5.0 Serum or plasma chloride measurement (moles/volume) 108 mmol/L 98-107 Carbon dioxide 23 mmol/L 21-32 Serum or plasma anion gap determination (moles/volume) 7 mmol/L 5-14 Serum or plasma urea nitrogen measurement (mass/volume ) 18 mg/dL 7-18 Serum or plasma creatinine measurement (mass/volume) 0.87 mg/dL 0.60-1.30 Serum or plasma urea nitrogen/creatinine mass ratio 21 NRG Serum or plasma creatinine measurement w ith calculation of estimated glomerular filtration rate > NRG Serum or plasma glucose measurement (mass/volume) 100 mg/dL 70-105 Serum or plasma calcium measurement (mass/volume) 8.0 mg/dL 8.5-10.1 Serum or plasma total bilirubin measurement (mass/volu me) 1.1 mg/dL 0.1-1.0 Serum or plasma alkaline phosphatase ana surement (enzymatic activity/volume) 88 U/L 40-136 Serum or plasma aspartate aminotransfera se measurement (enzymatic activity/volume) 17 U/L 5-34 Serum or plasma alanine aminotransferase measurement (enzymatic activity/volume) 25 U/L 0-55 Serum or plasma protein measurement (mass/volume) 5.2 g/dL 6.4-8.2 Serum or plasma albumin measurement (mass/volume) 3.1 g/dL 3.2-4.5 Capillary blood glucose measurement by g lucometer (mass/volume) - 04/24/16 11:23 Capillary blood glucose measurement by glucometer (mas s/volume) 221 mg/dL 70-110 Capillary blood glucose measurement by g lucometer (mass/volume) - 04/24/16 16:06 Capillary blood glucose measurement by glucometer (mas s/volume) 119 mg/dL 70-110 Capillary blood glucose measurement by g lucometer (mass/volume) - 04/24/16 20:51 Capillary blood glucose measurement by glucometer (mas s/volume) 177 mg/dL 70-110 Capillary blood glucose measurement by g lucometer (mass/volume) - 04/25/16 05:13 Capillary blood glucose measurement by glucometer (mas s/volume) 139 mg/dL 70-110 Capillary blood glucose measurement by g lucometer (mass/volume) - 04/25/16 10:50 Capillary blood glucose measurement by glucometer (mas s/volume) 205 mg/dL 70-110 Capillary blood glucose measurement by g lucometer (mass/volume) - 04/25/16 16:07 Capillary blood glucose measurement by glucometer (mas s/volume) 125 mg/dL 70-110 Stool occult blood screen - 04/25/16 18: 30 Stool gastrointestinal hemoglobin detection POSITI VE NEGATIVE Capillary blood glucose measurement by g lucometer (mass/volume) - 04/25/16 21:45 Capillary blood glucose measurement by glucometer (mas s/volume) 165 mg/dL 70-110 Complete blood count (CBC) with automate d white blood cell (WBC) differential - 04/26/16 04:40 Blood leukocytes automated count (number/volume) 4.4 10*3/uL 4.3-11.0 Blood erythrocytes automated count (number/volume) 3.29 10*6/uL 4.35-5.85 Venous blood hemoglobin measurement (mass/volume) 9.3 g/dL 13.3-17.7 Blood hematocrit (volume fraction) 29 % 40-54 Automated erythrocyte mean corpuscular volume 88 [ foz_us] 80-99 Automated erythrocyte mean corpuscular h emoglobin (mass per erythrocyte) 28 pg 25-34 Automated erythrocyte mean corpuscular h emoglobin concentration measurement (mass/volume) 32 g/dL 32-36 Automated erythrocyte distribution width ratio 17. 3 % 10.0- 14.5 Automated blood platelet count (count/volume) 205 10*3/uL 130-400 Automated blood platelet mean volume measurement 10.1 [foz_us] 7.4-10.4 Automated blood neutrophils/100 leukocytes 66 % 42-75 Automated blood lymphocytes/100 leukocytes 21 % 12-44 Blood monocytes/100 leukocytes 10 % 0-12 Automated blood eosinophils/100 leukocytes 3 % 0-10 Automated blood basophils/100 leukocytes 0 % 0-10 Blood neutrophils automated count (number/volume) 2.9 10*3 1.8-7.8 Blood lymphocytes automated count (number/volume) 0.9 10*3 1.0-4.0 Blood monocytes automated count (number/volume) 0. 4 10*3 0.0-1.0 Automated eosinophil count 0.1 10*3/uL 0 .0-0.3 Automated blood basophil count (count/volume) 0.0 10*3/uL 0.0-0.1 Capillary blood glucose measurement by g lucometer (mass/volume) - 04/26/16 05:54 Capillary blood glucose measurement by glucometer (mas s/volume) 137 mg/dL 70-110 Capillary blood glucose measurement by g lucometer (mass/volume) - 04/26/16 11:47 Capillary blood glucose measurement by glucometer (mas s/volume) 186 mg/dL 70-110 Capillary blood glucose measurement by g lucometer (mass/volume) - 04/26/16 15:53 Capillary blood glucose measurement by glucometer (mas s/volume) 291 mg/dL 70-110 Capillary blood glucose measurement by g lucometer (mass/volume) - 04/26/16 21:39 Capillary blood glucose measurement by glucometer (mas s/volume) 97 mg/dL 70-110 Complete blood count (CBC) with automate d white blood cell (WBC) differential - 04/27/16 05:50 Blood leukocytes automated count (number/volume) 4.4 10*3/uL 4.3-11.0 Blood erythrocytes automated count (number/volume) 3.33 10*6/uL 4.35-5.85 Venous blood hemoglobin measurement (mass/volume) 9.3 g/dL 13.3-17.7 Blood hematocrit (volume fraction) 30 % 40-54 Automated erythrocyte mean corpuscular volume 89 [ foz_us] 80-99 Automated erythrocyte mean corpuscular h emoglobin (mass per erythrocyte) 28 pg 25-34 Automated erythrocyte mean corpuscular h emoglobin concentration measurement (mass/volume) 32 g/dL 32-36 Automated erythrocyte distribution width ratio 17. 3 % 10.0- 14.5 Automated blood platelet count (count/volume) 202 10*3/uL 130-400 Automated blood platelet mean volume measurement 10.5 [foz_us] 7.4-10.4 Automated blood neutrophils/100 leukocytes 66 % 42-75 Automated blood lymphocytes/100 leukocytes 20 % 12-44 Blood monocytes/100 leukocytes 11 % 0-12 Automated blood eosinophils/100 leukocytes 3 % 0-10 Automated blood basophils/100 leukocytes 0 % 0-10 Blood neutrophils automated count (number/volume) 2.9 10*3 1.8-7.8 Blood lymphocytes automated count (number/volume) 0.9 10*3 1.0-4.0 Blood monocytes automated count (number/volume) 0. 5 10*3 0.0-1.0 Automated eosinophil count 0.1 10*3/uL 0 .0-0.3 Automated blood basophil count (count/volume) 0.0 10*3/uL 0.0-0.1 Capillary blood glucose measurement by g lucometer (mass/volume) - 04/27/16 06:13 Capillary blood glucose measurement by glucometer (mas s/volume) 128 mg/dL 70-110 Capillary blood glucose measurement by g lucometer (mass/volume) - 04/27/16 11:30 Capillary blood glucose measurement by glucometer (mas s/volume) 197 mg/dL 70-110 Capillary blood glucose measurement by g lucometer (mass/volume) - 04/27/16 16:06 Capillary blood glucose measurement by glucometer (mas s/volume) 290 mg/dL 70-110 Capillary blood glucose measurement by g lucometer (mass/volume) - 04/27/16 20:41 Capillary blood glucose measurement by glucometer (mas s/volume) 167 mg/dL 70-110 Capillary blood glucose measurement by g lucometer (mass/volume) - 04/28/16 06:09 Capillary blood glucose measurement by glucometer (mas s/volume) 130 mg/dL 70-110 Capillary blood glucose measurement by g lucometer (mass/volume) - 04/28/16 11:39 Capillary blood glucose measurement by glucometer (mas s/volume) 227 mg/dL 70-110 Capillary blood glucose measurement by g lucometer (mass/volume) - 04/28/16 15:45 Capillary blood glucose measurement by glucometer (mas s/volume) 225 mg/dL 70-110 Capillary blood glucose measurement by g lucometer (mass/volume) - 04/28/16 21:08 Capillary blood glucose measurement by glucometer (mas s/volume) 145 mg/dL 70-110 Capillary blood glucose measurement by g lucometer (mass/volume) - 04/29/16 05:39 Capillary blood glucose measurement by glucometer (mas s/volume) 133 mg/dL 70-110 Automated blood complete blood count (he mogram) panel - 04/29/16 06:45 Blood leukocytes automated count (number/volume) 4.2 10*3/uL 4.3-11.0 Blood erythrocytes automated count (number/volume) 3.45 10*6/uL 4.35-5.85 Venous blood hemoglobin measurement (mass/volume) 9.4 g/dL 13.3-17.7 Blood hematocrit (volume fraction) 30 % 40-54 Automated erythrocyte mean corpuscular volume 88 [ foz_us] 80-99 Automated erythrocyte mean corpuscular h emoglobin (mass per erythrocyte) 27 pg 25-34 Automated erythrocyte mean corpuscular h emoglobin concentration measurement (mass/volume) 31 g/dL 32-36 Automated erythrocyte distribution width ratio 17. 1 % 10.0- 14.5 Automated blood platelet count (count/volume) 208 10*3/uL 130-400 Automated blood platelet mean volume measurement 10.3 [foz_us] 7.4-10.4 Capillary blood glucose measurement by g lucometer (mass/volume) - 04/29/16 10:35 Capillary blood glucose measurement by glucometer (mas s/volume) 226 mg/dL 70-110 Capillary blood glucose measurement by g lucometer (mass/volume) - 04/29/16 15:42 Capillary blood glucose measurement by glucometer (mas s/volume) 182 mg/dL 70-110 Capillary blood glucose measurement by g lucometer (mass/volume) - 04/29/16 20:56 Capillary blood glucose measurement by glucometer (mas s/volume) 193 mg/dL 70-110 Capillary blood glucose measurement by g lucometer (mass/volume) - 04/30/16 05:22 Capillary blood glucose measurement by glucometer (mas s/volume) 157 mg/dL 70-110 Serum or plasma C reactive protein measu rement (mass/volume) - 07/28/18 08:43 Serum or plasma C reactive protein measurement (mass/v olume) 0.23 mg/dL 0.00-0.50 Erythrocyte sedimentation rate by villa gren method - 07/28/18 08:43 Erythrocyte sedimentation rate by westergren method 21 mm 0- 30 Complete blood count (CBC) with automate d white blood cell (WBC) differential - 05/08/19 18:51 Blood leukocytes automated count (number/volume) 8.7 10*3/uL 4.3-11.0 Blood erythrocytes automated count (number/volume) 4.26 10*6/uL 4.35-5.85 Venous blood hemoglobin measurement (mass/volume) 12.6 g/dL 13.3-17.7 Blood hematocrit (volume fraction) 39 % 40-54 Automated erythrocyte mean corpuscular volume 91 [ foz_us] 80-99 Automated erythrocyte mean corpuscular h emoglobin (mass per erythrocyte) 30 pg 25-34 Automated erythrocyte mean corpuscular h emoglobin concentration measurement (mass/volume) 33 g/dL 32-36 Automated erythrocyte distribution width ratio 15. 0 % 10.0- 14.5 Automated blood platelet count (count/volume) 271 10*3/uL 130-400 Automated blood platelet mean volume measurement 10.7 [foz_us] 7.4-10.4 Automated blood neutrophils/100 leukocytes 88 % 42-75 Automated blood lymphocytes/100 leukocytes 6 % 12-44 Blood monocytes/100 leukocytes 6 % 0-12 Automated blood eosinophils/100 leukocytes 0 % 0-10 Automated blood basophils/100 leukocytes 0 % 0-10 Blood neutrophils automated count (number/volume) 7.7 10*3 1.8-7.8 Blood lymphocytes automated count (number/volume) 0.5 10*3 1.0-4.0 Blood monocytes automated count (number/volume) 0. 5 10*3 0.0-1.0 Automated eosinophil count 0.0 10*3/uL 0 .0-0.3 Automated blood basophil count (count/volume) 0.0 10*3/uL 0.0-0.1 Comprehensive metabolic panel - 05/08/19 18:51 Serum or plasma sodium measurement (moles/volume) 138 mmol/L 135-145 Serum or plasma potassium measurement (moles/volume) 3.5 mmol/L 3.6-5.0 Serum or plasma chloride measurement (moles/volume) 104 mmol/L 98-107 Carbon dioxide 23 mmol/L 21-32 Serum or plasma anion gap determination (moles/volume) 11 mmol/L 5-14 Serum or plasma urea nitrogen measurement (mass/volume ) 11 mg/dL 7-18 Serum or plasma creatinine measurement (mass/volume) 0.91 mg/dL 0.60-1.30 Serum or plasma urea nitrogen/creatinine mass ratio 12 NRG Serum or plasma creatinine measurement w ith calculation of estimated glomerular filtration rate > NRG Serum or plasma glucose measurement (mass/volume) 120 mg/dL 70-105 Serum or plasma calcium measurement (mass/volume) 8.7 mg/dL 8.5-10.1 Serum or plasma total bilirubin measurement (mass/volu me) 0.8 mg/dL 0.1-1.0 Serum or plasma alkaline phosphatase ana surement (enzymatic activity/volume) 70 U/L 40-136 Serum or plasma aspartate aminotransfera se measurement (enzymatic activity/volume) 17 U/L 5-34 Serum or plasma alanine aminotransferase measurement (enzymatic activity/volume) 14 U/L 0-55 Serum or plasma protein measurement (mass/volume) 7.1 g/dL 6.4-8.2 Serum or plasma albumin measurement (mass/volume) 4.1 g/dL 3.2-4.5 CALCIUM CORRECTED 8.6 mg/dL 8.5-10.1 Magnesium - 05/08/19 18:51 Magnesium 1.6 mg/dL 1.6-2.4 Serum or plasma creatine kinase measurem ent (enzymatic activity/volume) - 05/08/19 18:51 Serum or plasma creatine kinase measurem ent (enzymatic activity/volume) 178 U/L 30-200 Serum or plasma ethanol measurement (mas s/volume) - 05/08/19 18:51 Serum or plasma ethanol measurement (mass/volume) < mg/dL <10 Serum or plasma troponin i.cardiac measu rement (mass/volume) - 05/08/19 18:51 Serum or plasma troponin i.cardiac measurement (mass/v olume) 0.043 ng/mL <0.028 Manual absolute plasma cell count - 04/17 06/02 18:51 Blood monocytes/100 leukocytes 6 % NRG Manual blood segmented neutrophils/100 leukocytes 83 % NRG Blood band neutrophils/100 leukocytes 4 % NRG Manual blood lymphocytes/100 leukocytes 7 % NRG PT panel in platelet poor plasma by coag ulation assay - 05/08/19 18:51 Prothrombin time (PT) in platelet poor plasma by coagu lation assay 16.2 s 12.2-14.7 INR in platelet poor plasma or blood by coagulation as say 1.3 0.8-1.4 Activated partial thromboplastin time (a PTT) in platelet poor plasma bycoagulation assay - 05/08/19 18:51 Activated partial thromboplastin time (a PTT) in platelet poor plasma bycoagulation assay 30 s 24-35 Capillary blood glucose measurement by g lucometer (mass/volume) - 05/08/19 18:52 Capillary blood glucose measurement by glucometer (mas s/volume) 155 mg/dL 70-110 Blood lactic acid measurement (moles/vol ume) - 05/08/19 19:00 Blood lactic acid measurement (moles/volume) 1.81 mmol/L 0.50-2.00 Bacterial blood culture - 05/08/19 19:00 QUANTITY OF GROWTH . NRG Bacterial blood culture SEE COMMEN NR Urine drug screening test - 05/08/19 19: 05 Urine phencyclidine detection by screening method NEGATIVE NEGATIVE Urine benzodiazepines detection by screening method NEGATIVE NEGATIVE Urine cocaine detection NEGATIVE NEGATI VE Urine amphetamines detection by screening method N EGATIVE NEGATIVE Urine methamphetamine detection by screening method NEGATIVE NEGATIVE Urine cannabinoids detection by screening method N EGATIVE NEGATIVE Urine opiates detection by screening method NEGATI VE NEGATIVE Urine barbiturates detection NEGATIVE N EGATIVE Screening urine tricyclic antidepressants detection NEGATIVE NEGATIVE Urine methadone detection by screening method NEGA TIVE NEGATIVE Urine oxycodone detection NEGATIVE NEGA TIVE Urine propoxyphene detection NEGATIVE N EGATIVE Complete urinalysis with reflex to cultu re - 05/08/19 19:05 Urine color determination YELLOW NRG Urine clarity determination CLEAR NR G Urine pH measurement by test strip 7.0 5-9 Specific gravity of urine by test strip 1.025 1.016-1.022 Urine protein assay by test strip, semi-quantitative 3+ NEGATIVE Urine glucose detection by automated test strip NE GATIVE NEGATIVE Erythrocytes detection in urine sediment by light micr oscopy 2+ NEGATIVE Urine ketones detection by automated test strip 1+ NEGATIVE Urine nitrite detection by test strip NEGATIVE NEGATIVE Urine total bilirubin detection by test strip NEGA TIVE NEGATIVE Urine urobilinogen measurement by automated test strip (mass/volume) 0.2 mg/dL < = 1.0 Urine leukocyte esterase detection by dipstick NEG ATIVE NEGATIVE Automated urine sediment erythrocyte cou nt by microscopy (number/high power field) [HPF] NRG Automated urine sediment leukocyte count by microscopy (number/high power field) [HPF] NRG Bacteria detection in urine sediment by light microsco py TRACE NRG Squamous epithelial cells detection in u rine sediment by light microscopy NONE NRG Crystals detection in urine sediment by light microsco py NONE NRG Casts detection in urine sediment by light microscopy NONE NRG Mucus detection in urine sediment by light microscopy NEGATIVE NRG Complete urinalysis with reflex to culture NO NRG Bacterial urine culture - 05/08/19 19:05 Bacterial urine culture [id number] NRG COLONY COUNT 40,000 CFU/ML NRG FTX;REPORTABLE NO SUSCEPTIBILITY PERFORMED NRG Arterial blood gas measurement - 0 19:10 Blood pCO2 32 mm[Hg] 35-45 Blood pO2 80 mm[Hg] 79-93 Arterial blood bicarbonate measurement (moles/volume) 22 mmol/L 23-27 Arterial blood base excess by calculation -2.0 mmo l/L -2.5-2.5 Arterial blood oxygen saturation measurement 96 % 94-100 * Inhaled oxygen flow rate N/A NRG Arterial blood pH measurement with patient temperature correction 7.44 7.37-7.43 Arterial blood carbon dioxide, total measurement (mole s/volume) 22.5 mmol/L 21.0-31.0 Body site RIGHT RADIAL NRG Assessment of wrist artery patency prior to arterial p uncture POSITIVE NRG Setting of ventilation mode NO NR G Measurement of body temperature 36.9 NRG Bacterial blood culture - 05/08/19 19:25 Bacterial blood culture NG NRG Influenza virus A and B antigen detectio n - 05/08/19 19:31 FLU RESULT NEGATIVE FOR INFLUENZA A AND B ANTIGENS BY IA NRG Capillary blood glucose measurement by g lucometer (mass/volume) - 05/08/19 20:42 Capillary blood glucose measurement by glucometer (mas s/volume) 191 mg/dL 70-110 Capillary blood glucose measurement by g lucometer (mass/volume) - 05/08/19 21:33 Capillary blood glucose measurement by glucometer (mas s/volume) 158 mg/dL 70-110 Capillary blood glucose measurement by g lucometer (mass/volume) - 05/08/19 23:51 Capillary blood glucose measurement by glucometer (mas s/volume) 85 mg/dL 70-110 Serum or plasma troponin i.cardiac measu rement (mass/volume) - 05/09/19 01:01 Serum or plasma troponin i.cardiac measurement (mass/v olume) 0.047 ng/mL <0.028 Complete blood count (CBC) with automate d white blood cell (WBC) differential - 05/09/19 03:00 Blood leukocytes automated count (number/volume) 8.9 10*3/uL 4.3-11.0 Blood erythrocytes automated count (number/volume) 3.76 10*6/uL 4.35-5.85 Venous blood hemoglobin measurement (mass/volume) 11.0 g/dL 13.3-17.7 Blood hematocrit (volume fraction) 34 % 40-54 Automated erythrocyte mean corpuscular volume 91 [ foz_us] 80-99 Automated erythrocyte mean corpuscular h emoglobin (mass per erythrocyte) 29 pg 25-34 Automated erythrocyte mean corpuscular h emoglobin concentration measurement (mass/volume) 32 g/dL 32-36 Automated erythrocyte distribution width ratio 15. 1 % 10.0- 14.5 Automated blood platelet count (count/volume) 247 10*3/uL 130-400 Automated blood platelet mean volume measurement 11.0 [foz_us] 7.4-10.4 Automated blood neutrophils/100 leukocytes 73 % 42-75 Automated blood lymphocytes/100 leukocytes 14 % 12-44 Blood monocytes/100 leukocytes 13 % 0-12 Automated blood eosinophils/100 leukocytes 1 % 0-10 Automated blood basophils/100 leukocytes 0 % 0-10 Blood neutrophils automated count (number/volume) 6.5 10*3 1.8-7.8 Blood lymphocytes automated count (number/volume) 1.2 10*3 1.0-4.0 Blood monocytes automated count (number/volume) 1. 1 10*3 0.0-1.0 Automated eosinophil count 0.1 10*3/uL 0 .0-0.3 Automated blood basophil count (count/volume) 0.0 10*3/uL 0.0-0.1 Comprehensive metabolic panel - 05/09/19 03:00 Serum or plasma sodium measurement (moles/volume) 137 mmol/L 135-145 Serum or plasma potassium measurement (moles/volume) 3.4 mmol/L 3.6-5.0 Serum or plasma chloride measurement (moles/volume) 107 mmol/L 98-107 Carbon dioxide 21 mmol/L 21-32 Serum or plasma anion gap determination (moles/volume) 9 mmol/L 5-14 Serum or plasma urea nitrogen measurement (mass/volume ) 10 mg/dL 7-18 Serum or plasma creatinine measurement (mass/volume) 0.82 mg/dL 0.60-1.30 Serum or plasma urea nitrogen/creatinine mass ratio 12 NRG Serum or plasma creatinine measurement w ith calculation of estimated glomerular filtration rate > NRG Serum or plasma glucose measurement (mass/volume) 93 mg/dL 70-105 Serum or plasma calcium measurement (mass/volume) 8.1 mg/dL 8.5-10.1 Serum or plasma total bilirubin measurement (mass/volu me) 0.7 mg/dL 0.1-1.0 Serum or plasma alkaline phosphatase ana surement (enzymatic activity/volume) 56 U/L 40-136 Serum or plasma aspartate aminotransfera se measurement (enzymatic activity/volume) 14 U/L 5-34 Serum or plasma alanine aminotransferase measurement (enzymatic activity/volume) 13 U/L 0-55 Serum or plasma protein measurement (mass/volume) 5.7 g/dL 6.4-8.2 Serum or plasma albumin measurement (mass/volume) 3.3 g/dL 3.2-4.5 CALCIUM CORRECTED 8.7 mg/dL 8.5-10.1 Lipid 1996 panel - 05/09/19 03:00 Serum or plasma triglyceride measurement (mass/volume) 60 mg/dL <150 Serum or plasma cholesterol measurement (mass/volume) 88 mg/dL < 200 Serum or plasma cholesterol in HDL measurement (mass/v olume) 38 mg/dL 40-60 Cholesterol in LDL [mass/volume] in serum or plasma by direct assay 32 mg/dL 1-129 Serum or plasma cholesterol in VLDL measurement (mass/ volume) 12 mg/dL 5-40 Serum or plasma phosphate measurement (m ass/volume) - 05/09/19 03:00 Serum or plasma phosphate measurement (mass/volume) 2.3 mg/dL 2.3-4.7 Magnesium - 05/09/19 03:00 Magnesium 1.5 mg/dL 1.6-2.4 Serum or plasma lithium measurement (mol es/volume) - 05/09/19 03:00 BNP PT 448.2 pg/mL <100.0 Capillary blood glucose measurement by g lucometer (mass/volume) - 05/09/19 06:55 Capillary blood glucose measurement by glucometer (mas s/volume) 106 mg/dL 70-110 Serum or plasma troponin i.cardiac measu rement (mass/volume) - 05/09/19 07:00 Serum or plasma troponin i.cardiac measurement (mass/v olume) 0.046 ng/mL <0.028 Capillary blood glucose measurement by g lucometer (mass/volume) - 05/09/19 09:26 Capillary blood glucose measurement by glucometer (mas s/volume) 211 mg/dL 70-110 Capillary blood glucose measurement by g lucometer (mass/volume) - 05/09/19 12:06 Capillary blood glucose measurement by glucometer (mas s/volume) 302 mg/dL 70-110 Capillary blood glucose measurement by g lucometer (mass/volume) - 05/09/19 15:47 Capillary blood glucose measurement by glucometer (mas s/volume) 161 mg/dL 70-110 Capillary blood glucose measurement by g lucometer (mass/volume) - 05/09/19 20:48 Capillary blood glucose measurement by glucometer (mas s/volume) 125 mg/dL 70-110 Capillary blood glucose measurement by g lucometer (mass/volume) - 05/10/19 05:28 Capillary blood glucose measurement by glucometer (mas s/volume) 102 mg/dL 70-110 Complete blood count (CBC) with automate d white blood cell (WBC) differential - 05/10/19 05:28 Blood leukocytes automated count (number/volume) 7.3 10*3/uL 4.3-11.0 Blood erythrocytes automated count (number/volume) 4.04 10*6/uL 4.35-5.85 Venous blood hemoglobin measurement (mass/volume) 11.9 g/dL 13.3-17.7 Blood hematocrit (volume fraction) 37 % 40-54 Automated erythrocyte mean corpuscular volume 91 [ foz_us] 80-99 Automated erythrocyte mean corpuscular h emoglobin (mass per erythrocyte) 30 pg 25-34 Automated erythrocyte mean corpuscular h emoglobin concentration measurement (mass/volume) 32 g/dL 32-36 Automated erythrocyte distribution width ratio 15. 0 % 10.0- 14.5 Automated blood platelet count (count/volume) 225 10*3/uL 130-400 Automated blood platelet mean volume measurement 10.7 [foz_us] 7.4-10.4 Automated blood neutrophils/100 leukocytes 75 % 42-75 Automated blood lymphocytes/100 leukocytes 11 % 12-44 Blood monocytes/100 leukocytes 11 % 0-12 Automated blood eosinophils/100 leukocytes 3 % 0-10 Automated blood basophils/100 leukocytes 0 % 0-10 Blood neutrophils automated count (number/volume) 5.5 10*3 1.8-7.8 Blood lymphocytes automated count (number/volume) 0.8 10*3 1.0-4.0 Blood monocytes automated count (number/volume) 0. 8 10*3 0.0-1.0 Automated eosinophil count 0.2 10*3/uL 0 .0-0.3 Automated blood basophil count (count/volume) 0.0 10*3/uL 0.0-0.1 Whole blood basic metabolic panel - 04/17 08/02 05:28 Serum or plasma sodium measurement (moles/volume) 138 mmol/L 135-145 Serum or plasma potassium measurement (moles/volume) 4.0 mmol/L 3.6-5.0 Serum or plasma chloride measurement (moles/volume) 109 mmol/L 98-107 Carbon dioxide 21 mmol/L 21-32 Serum or plasma anion gap determination (moles/volume) 8 mmol/L 5-14 Serum or plasma urea nitrogen measurement (mass/volume ) 10 mg/dL 7-18 Serum or plasma creatinine measurement (mass/volume) 0.82 mg/dL 0.60-1.30 Serum or plasma urea nitrogen/creatinine mass ratio 12 NRG Serum or plasma creatinine measurement w ith calculation of estimated glomerular filtration rate > NRG Serum or plasma glucose measurement (mass/volume) 108 mg/dL 70-105 Serum or plasma calcium measurement (mass/volume) 8.2 mg/dL 8.5-10.1 Capillary blood glucose measurement by g lucometer (mass/volume) - 05/10/19 10:49 Capillary blood glucose measurement by glucometer (mas s/volume) 201 mg/dL 70-110 Capillary blood glucose measurement by g lucometer (mass/volume) - 05/10/19 16:38 Capillary blood glucose measurement by glucometer (mas s/volume) 234 mg/dL 70-110 Capillary blood glucose measurement by g lucometer (mass/volume) - 05/10/19 20:44 Capillary blood glucose measurement by glucometer (mas s/volume) 250 mg/dL 70-110 Capillary blood glucose measurement by g lucometer (mass/volume) - 05/11/19 04:14 Capillary blood glucose measurement by glucometer (mas s/volume) 97 mg/dL 70-110 Complete blood count (CBC) with automate d white blood cell (WBC) differential - 05/11/19 05:03 Blood leukocytes automated count (number/volume) 6.2 10*3/uL 4.3-11.0 Blood erythrocytes automated count (number/volume) 3.94 10*6/uL 4.35-5.85 Venous blood hemoglobin measurement (mass/volume) 11.3 g/dL 13.3-17.7 Blood hematocrit (volume fraction) 36 % 40-54 Automated erythrocyte mean corpuscular volume 90 [ foz_us] 80-99 Automated erythrocyte mean corpuscular h emoglobin (mass per erythrocyte) 29 pg 25-34 Automated erythrocyte mean corpuscular h emoglobin concentration measurement (mass/volume) 32 g/dL 32-36 Automated erythrocyte distribution width ratio 15. 0 % 10.0- 14.5 Automated blood platelet count (count/volume) 227 10*3/uL 130-400 Automated blood platelet mean volume measurement 10.9 [foz_us] 7.4-10.4 Automated blood neutrophils/100 leukocytes 67 % 42-75 Automated blood lymphocytes/100 leukocytes 19 % 12-44 Blood monocytes/100 leukocytes 11 % 0-12 Automated blood eosinophils/100 leukocytes 3 % 0-10 Automated blood basophils/100 leukocytes 0 % 0-10 Blood neutrophils automated count (number/volume) 4.1 10*3 1.8-7.8 Blood lymphocytes automated count (number/volume) 1.2 10*3 1.0-4.0 Blood monocytes automated count (number/volume) 0. 7 10*3 0.0-1.0 Automated eosinophil count 0.2 10*3/uL 0 .0-0.3 Automated blood basophil count (count/volume) 0.0 10*3/uL 0.0-0.1 Whole blood basic metabolic panel - 04/17 09/02 05:03 Serum or plasma sodium measurement (moles/volume) 138 mmol/L 135-145 Serum or plasma potassium measurement (moles/volume) 3.8 mmol/L 3.6-5.0 Serum or plasma chloride measurement (moles/volume) 108 mmol/L 98-107 Carbon dioxide 21 mmol/L 21-32 Serum or plasma anion gap determination (moles/volume) 9 mmol/L 5-14 Serum or plasma urea nitrogen measurement (mass/volume ) 16 mg/dL 7-18 Serum or plasma creatinine measurement (mass/volume) 0.80 mg/dL 0.60-1.30 Serum or plasma urea nitrogen/creatinine mass ratio 20 NRG Serum or plasma creatinine measurement w ith calculation of estimated glomerular filtration rate > NRG Serum or plasma glucose measurement (mass/volume) 99 mg/dL 70-105 Serum or plasma calcium measurement (mass/volume) 8.4 mg/dL 8.5-10.1 Capillary blood glucose measurement by g lucometer (mass/volume) - 05/11/19 10:36 Capillary blood glucose measurement by glucometer (mas s/volume) 318 mg/dL 70-110 Capillary blood glucose measurement by g lucometer (mass/volume) - 05/11/19 16:00 Capillary blood glucose measurement by glucometer (mas s/volume) 137 mg/dL 70-110 Capillary blood glucose measurement by g lucometer (mass/volume) - 05/11/19 20:03 Capillary blood glucose measurement by glucometer (mas s/volume) 254 mg/dL 70-110 Complete blood count (CBC) with automate d white blood cell (WBC) differential - 05/12/19 04:43 Blood leukocytes automated count (number/volume) 6.9 10*3/uL 4.3-11.0 Blood erythrocytes automated count (number/volume) 3.80 10*6/uL 4.35-5.85 Venous blood hemoglobin measurement (mass/volume) 11.2 g/dL 13.3-17.7 Blood hematocrit (volume fraction) 35 % 40-54 Automated erythrocyte mean corpuscular volume 91 [ foz_us] 80-99 Automated erythrocyte mean corpuscular h emoglobin (mass per erythrocyte) 30 pg 25-34 Automated erythrocyte mean corpuscular h emoglobin concentration measurement (mass/volume) 33 g/dL 32-36 Automated erythrocyte distribution width ratio 15. 0 % 10.0- 14.5 Automated blood platelet count (count/volume) 229 10*3/uL 130-400 Automated blood platelet mean volume measurement 11.0 [foz_us] 7.4-10.4 Automated blood neutrophils/100 leukocytes 73 % 42-75 Automated blood lymphocytes/100 leukocytes 15 % 12-44 Blood monocytes/100 leukocytes 10 % 0-12 Automated blood eosinophils/100 leukocytes 2 % 0-10 Automated blood basophils/100 leukocytes 0 % 0-10 Blood neutrophils automated count (number/volume) 5.0 10*3 1.8-7.8 Blood lymphocytes automated count (number/volume) 1.0 10*3 1.0-4.0 Blood monocytes automated count (number/volume) 0. 7 10*3 0.0-1.0 Automated eosinophil count 0.2 10*3/uL 0 .0-0.3 Automated blood basophil count (count/volume) 0.0 10*3/uL 0.0-0.1 Whole blood basic metabolic panel - 04/17 10/02 04:43 Serum or plasma sodium measurement (moles/volume) 136 mmol/L 135-145 Serum or plasma potassium measurement (moles/volume) 4.4 mmol/L 3.6-5.0 Serum or plasma chloride measurement (moles/volume) 106 mmol/L 98-107 Carbon dioxide 22 mmol/L 21-32 Serum or plasma anion gap determination (moles/volume) 8 mmol/L 5-14 Serum or plasma urea nitrogen measurement (mass/volume ) 24 mg/dL 7-18 Serum or plasma creatinine measurement (mass/volume) 0.98 mg/dL 0.60-1.30 Serum or plasma urea nitrogen/creatinine mass ratio 24 NRG Serum or plasma creatinine measurement w ith calculation of estimated glomerular filtration rate > NRG Serum or plasma glucose measurement (mass/volume) 109 mg/dL 70-105 Serum or plasma calcium measurement (mass/volume) 8.4 mg/dL 8.5-10.1 Capillary blood glucose measurement by g lucometer (mass/volume) - 05/12/19 05:27 Capillary blood glucose measurement by glucometer (mas s/volume) 115 mg/dL 70-110 Capillary blood glucose measurement by g lucometer (mass/volume) - 05/12/19 11:17 Capillary blood glucose measurement by glucometer (mas s/volume) 195 mg/dL 70-110 Capillary blood glucose measurement by g lucometer (mass/volume) - 05/12/19 15:36 Capillary blood glucose measurement by glucometer (mas s/volume) 323 mg/dL 70-110 Capillary blood glucose measurement by g lucometer (mass/volume) - 05/12/19 20:35 Capillary blood glucose measurement by glucometer (mas s/volume) 94 mg/dL 70-110 Capillary blood glucose measurement by g lucometer (mass/volume) - 05/13/19 04:58 Capillary blood glucose measurement by glucometer (mas s/volume) 138 mg/dL 70-110 Complete blood count (CBC) with automate d white blood cell (WBC) differential - 05/13/19 05:35 Blood leukocytes automated count (number/volume) 6.5 10*3/uL 4.3-11.0 Blood erythrocytes automated count (number/volume) 4.00 10*6/uL 4.35-5.85 Venous blood hemoglobin measurement (mass/volume) 11.5 g/dL 13.3-17.7 Blood hematocrit (volume fraction) 36 % 40-54 Automated erythrocyte mean corpuscular volume 90 [ foz_us] 80-99 Automated erythrocyte mean corpuscular h emoglobin (mass per erythrocyte) 29 pg 25-34 Automated erythrocyte mean corpuscular h emoglobin concentration measurement (mass/volume) 32 g/dL 32-36 Automated erythrocyte distribution width ratio 15. 3 % 10.0- 14.5 Automated blood platelet count (count/volume) 254 10*3/uL 130-400 Automated blood platelet mean volume measurement 10.8 [foz_us] 7.4-10.4 Automated blood neutrophils/100 leukocytes 70 % 42-75 Automated blood lymphocytes/100 leukocytes 17 % 12-44 Blood monocytes/100 leukocytes 9 % 0-12 Automated blood eosinophils/100 leukocytes 4 % 0-10 Automated blood basophils/100 leukocytes 1 % 0-10 Blood neutrophils automated count (number/volume) 4.5 10*3 1.8-7.8 Blood lymphocytes automated count (number/volume) 1.1 10*3 1.0-4.0 Blood monocytes automated count (number/volume) 0. 6 10*3 0.0-1.0 Automated eosinophil count 0.2 10*3/uL 0 .0-0.3 Automated blood basophil count (count/volume) 0.0 10*3/uL 0.0-0.1 Whole blood basic metabolic panel - 04/17 11/02 05:35 Serum or plasma sodium measurement (moles/volume) 138 mmol/L 135-145 Serum or plasma potassium measurement (moles/volume) 3.7 mmol/L 3.6-5.0 Serum or plasma chloride measurement (moles/volume) 105 mmol/L 98-107 Carbon dioxide 23 mmol/L 21-32 Serum or plasma anion gap determination (moles/volume) 10 mmol/L 5-14 Serum or plasma urea nitrogen measurement (mass/volume ) 26 mg/dL 7-18 Serum or plasma creatinine measurement (mass/volume) 0.92 mg/dL 0.60-1.30 Serum or plasma urea nitrogen/creatinine mass ratio 28 NRG Serum or plasma creatinine measurement w ith calculation of estimated glomerular filtration rate > NRG Serum or plasma glucose measurement (mass/volume) 142 mg/dL 70-105 Serum or plasma calcium measurement (mass/volume) 8.9 mg/dL 8.5-10.1 Capillary blood glucose measurement by g lucometer (mass/volume) - 05/13/19 10:44 Capillary blood glucose measurement by glucometer (mas s/volume) 289 mg/dL 70-110 Capillary blood glucose measurement by g lucometer (mass/volume) - 05/13/19 15:48 Capillary blood glucose measurement by glucometer (mas s/volume) 150 mg/dL 70-110 Encounters ACCT No. Visit Date/Time Discharge Status Pt. Type Provider Facility Loc./Unit Complaint [id number] 05/10/2019 16:29:00 020 16:45:00 DIS Inpatient FABIAN GOMES MD [facility] 4TH HYPOGLYCEMIC, ELEVATED TROP I, PHYSICAL DEBILITY [id number] 07/28/2018 08:15:00 23:59:59 CLS Outpatient GLADYS ORONA DO S [facility] RAD PAPILLEDEMA [id number] 07/23/2018 09:01:00 23:59:59 CLS Outpatient GLADYS ORONA DO S [facility] RAD DYSPNEA/WEIGHT LOSS [id number] 06/03/2018 12:16:00 23:59:59 CLS Outpatient JESSIE SY MD [facility] RAD HEMATURIA [id number] 09/01/2017 10:47:00 018 23:59:59 CLS Outpatient RIDDIH HO FACC, VELASQUEZ ROJO CC DS [facility] CARD CAD,CAROTID ARTERIAL DISEASE [id number] 08/05/2017 11:39:00 018 23:59:59 CLS Outpatient BARTOLO GUY APRN [facility] RAD HEMATURIA [id number] 05/07/2017 11:38:00 23:59:59 CLS Outpatient JESSIE SY MD [facility] RAD HEMATURIA [id number] 04/21/2016 14:30:00 017 09:35:00 DIS Inpatient GLADYS ORONA DO [facility] 4TH GI BLEED,WEAKNESS,ANEMIA,DEBILITY [id number] 04/19/2016 17:15:00 017 20:13:00 DIS Emergency DEBI VELEZ MD [facility] ER UNRESPONSIVE [id number] 04/11/2016 12:49:00 017 13:00:00 DIS Inpatient ADWOA GLADYS S [facility] 4TH SWB UTI,GENERAL IZED WEAKNESS,CHF [id number] 04/07/2016 15:13:00 017 12:49:00 DIS Inpatient ADWOA GLADYS S [facility] 4TH URINARY TRACT INFECTION,GENERALIZED WEAKNESS,CHF [id number] 03/25/2016 11:12:00 017 23:59:59 CLS Outpatient JESSIE SY MD [facility] RAD GROSS HEMATURIA [id number] 01/18/2015 08:36:00 015 23:59:59 CLS Outpatient CRIS MCKEON [facility] CARD DYSPNEA,HTN,CAD,CLAUDICATION [id number] 01/02/2015 09:14:00 015 23:59:59 CLS Outpatient CRIS MCKEON [facility] RAD DYSPNEA,HTN,CAD,CLAUDICATION [id number] 11/07/2013 12:22:00 014 23:59:59 CLS Outpatient GLADYS ORONA DO S [facility] RAD ACUTE GROSS HEM ATURIA [id number] 11/16/2012 08:41:00 013 23:59:59 CLS Outpatient GLADYS ORONA DO S [facility] RAD LUNG NODULE [id number] 05/13/2011 08:34:00 Document Registration [id number] 05/01/2011 07:43:00 Document Registration [id number] 02/14/2011 10:41:00 Document Registration [id number] 11/04/2010 08:12:00 Document Registration
--- OUTSIDE RECORDS SUMMARY | 2019-05-15 11:01 | XMS REPORT | Clinical Summary ---
Author Author [facility] Organization [facility] Address Unknown Phone Unavailable Care Team Providers Care Senior Compliance Analyst Name Role Phone Pricila Clemente MD PCP Source Comments Some departments are not documenting in the electronic medical record. 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
--- OUTSIDE RECORDS SUMMARY | 2019-05-15 11:01 | XMS REPORT | Encounter Summary ---
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 Office Visit [facility] [address] [place] [address] Social History Date Tobacco Use [...] Marylou Samayoa MD - 03/29/2019 10:45 AM MUSIC DIRECTOR Assessment and Plan: Problem Posterior Uveitis, Bilateral [...] 1.0% Tropicamide, 2.5% Phenylephrine @ 10:37 AM C DIRECTOR documented in this encounter Plan of Treatment Order Schedule Name Type Priority Associated Diag noses Ordered: 03/29/2019 VA INTRAVITREAL NJX VA Charge Routine Posterior uveitis, PHARMACOLOGIC AGT SPX bilateral Ordered: 03/29/2019 SCAN COMP OPHTHAL DIAG Ophthalmology Routine Posteri or uveitis, IMG, ANT SEG & MACULA bilateral documented as of this encounter Visit Diagnoses Diagnosis Posterior uveitis, bilateral Chorioretinitis, unspecified * Assessment & Plan Note - Marylou Samayoa MD - 03/29/2019 11:06 AM MUSIC DIRECTOR Associated Problem(s): Posterior uveitis, bilateral OCT OD [...] pressure. The patient tolerated the procedure well. C DIRECTOR documented in this encounter Administered Medications Action Date Dose Rate Site Medication Order MAR Action 03/29/2019 11:19 AM MUSIC DIRECTOR 0.7 mg Eye, Lef t dexamethasone(+) (OZURDEX) intravitreal Given implant 0.7 mg 0.7 mg, Left Eye, ONCE, 1 dose, 03/29/19 at 1215 documented in this encounter
--- OUTSIDE RECORDS SUMMARY | 2019-05-15 11:01 | XMS REPORT | Encounter Summary ---
Author Author [facility] Organization [facility] Address Unknown Phone Unavailable Care Team Providers Care Cellophaner Name Role Phone Pricila Clemente MD PCP [...] Specialty Diagnoses / Procedures Marylou Samayoa MD [address] [place] [address] Marylou Samayoa MD [address] [place] [address] Pending Review Ophthalmology Diagnoses 8 wk P rocedures HI INJECTION AFLIBERCEPT, 1 MG RETURN PATIENT Encounter Details Care Team Description Date Type Department Marylou Samayoa MD [address] [place] [address] [phone] Posterior uveitis, bilateral 11/23/2018 Office Visit [facility] [address] [place] [address] Social History Date Tobacco Use [...]
--- OUTSIDE RECORDS SUMMARY | 2019-05-15 11:01 | XMS REPORT | Encounter Summary ---
Author Author [facility] Organization [facility] Address Unknown Phone Unavailable Care Team Providers Care Smasher Name Role Phone Pricila Clemente MD PCP [...] Specialty Diagnoses / Procedures Marylou Samayoa MD [address] [place] [address] Marylou Samayoa MD [address] [place] [address] Pending Review Ophthalmology Diagnoses 8 wk P rocedures [place] INJECTION AFLIBERCEPT, 1 MG RETURN PATIENT Encounter Details Care Team Description Date Type Department Marylou Samayoa MD [address] [place] [address] [phone] Drusen of both optic discs (Primary Dx); Shruthi-Faith syndrome; Floppy eyelid syndrome of both eyes; Entropion of both lower eyelids; Trichiasis of eyelid of both eyes; Posterior uveitis, bilateral 01/24/2019 Office Visit [facility] [address] [place] [address] Social History Date Tobacco Use [...] Marylou Samayoa MD - 01/24/2019 10:45 AM PRESS SHOP SUPERVISOR Assessment and Plan: Problem 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 I re commended he discuss sleep study with his PCP. S SHOP SUPERVISOR * Assessment & Plan Note - Marylou Samayoa MD - 01/24/2019 11:43 AM PRESS SHOP SUPERVISOR Associated Problem(s): Trichiasis of eyelid of both eyes Has had epilation in the last Patient waking up with symptoms of tearing and watering, with FB sensation Discussed findings, option for referral to oculoplastics At this time, he elects to monitor and will let me know if it starts to bother h im more. There is no corneal abrasion or erosion today. S SHOP SUPERVISOR * Assessment & Plan Note - Marylou Samayoa MD - 01/24/2019 11:41 AM PRESS SHOP SUPERVISOR Associated Problem(s): [place]-Faith syndrome OCT OD no edema or SRF [...] retu rn for worsening vision or distoriton. S SHOP SUPERVISOR documented in this encounter
--- OUTSIDE RECORDS SUMMARY | 2019-05-15 11:02 | XMS REPORT | Continuity of Care Document ---
Author Organization Unknown Address Unknown Phone Unavailable Allergies Active Description Code Type Severity Reaction Onset Reported/Identified Relationship to Patient Clinical Status Yes No Known Drug Allergies [id number] Drug Allergy Unknown N/A 06/02/2010 Medications There is no data. Problems Date Dx Coded Attending Type Code Diagnosis Diagnosed By 01/24/2015 BAIMA, CRIS L SUPERVISOR DRYING AND WINDING Ot F17.200 01/24/2015 BAIMA, CRIS L SUPERVISOR DRYING AND WINDING Ot I 10 01/24/2015 BAIMA, CRIS L SUPERVISOR DRYING AND WINDING Ot I25.10 01/24/2015 BAIMA, CRIS L SUPERVISOR DRYING AND WINDING Ot I45.10 01/24/2015 BAIMA, CRIS L SUPERVISOR DRYING AND WINDING Ot I73.9 01/24/2015 BAIMA, CRIS L SUPERVISOR DRYING AND WINDING Ot I77.1 01/24/2015 BAIMA, CRIS L SUPERVISOR DRYING AND WINDING Ot I77.9 01/24/2015 BAIMA, CRIS L SUPERVISOR DRYING AND WINDING Ot R06.09 01/24/2015 BAIMA, CRIS L SUPERVISOR DRYING AND WINDING Ot R78.5 02/12/2015 BAIMA, CRIS L SUPERVISOR DRYING AND WINDING Ot E78.5 02/12/2015 BAIMA, CRIS L SUPERVISOR DRYING AND WINDING Ot F17.200 02/12/2015 BAIMA, CRIS L SUPERVISOR DRYING AND WINDING Ot I 10 02/12/2015 BAIMA, CRIS L SUPERVISOR DRYING AND WINDING Ot I25.10 02/12/2015 BAIMA, CRIS L SUPERVISOR DRYING AND WINDING Ot I45.10 02/12/2015 BAIMA, CRIS L SUPERVISOR DRYING AND WINDING Ot I73.9 02/12/2015 BAIMA, CRIS L SUPERVISOR DRYING AND WINDING Ot I77.1 02/12/2015 BAIMA, CRIS L SUPERVISOR DRYING AND WINDING Ot I77.9 02/12/2015 BAIMA, CRIS L SUPERVISOR DRYING AND WINDING Ot R06.09 03/26/2016 YOSSI HO, JESSIE Carter [...] JESSIE SY MD Ot R31.0 GROSS HEMATURIA 04/07/2016 Ot [...] 04/07/2016 Ot 414.01 COR ONARY ATHEROSCLEROSIS OF [place] CORON 04/07/2016 Ot 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 W O CEREBRAL IN 04/07/2016 Ot 272.4 HYPE RLIPIDEMIA NEC/NOS 04/07/2016 Ot 414.01 COR ONARY ATHEROSCLEROSIS OF [place] CORON 04/07/2016 Ot V58.69 OTH MED,LT,CURRENT USE 04/07/2016 Ot V76.44 SCR EEN MAL NEOP- PROSTATE 04/07/2016 GLADYS ORONA DO Ot 793.11 SOLITARY PULMONARY NODULE 04/07/2016 GLADYS ORONA DO Ot V81.5 SCREEN FOR NEPHROPATHY 04/07/2016 GLADYS ORONA DO S Ot 599.71 GROSS HEMATURIA 04/07/2016 CRIS MCKEON SUPERVISOR DRYING AND WINDING Ot F17.200 NICOTINE DEPENDENCE, UNSPECIFIED, UNCOMP 04/07/2016 CRIS MCKEON SUPERVISOR DRYING AND WINDING Ot I 10 ESSENTIAL (PRIMARY) HYPERTENSION 04/07/2016 CRIS MCKEON SUPERVISOR DRYING AND WINDING Ot I25.10 ATHSCL HEART DISEASE OF [place] CORONARY 04/07/2016 CRIS MCKEON SUPERVISOR DRYING AND WINDING Ot I45.10 UNSPECIFIED RIGHT BUNDLE-BRANCH BLOCK 04/07/2016 CRIS MCKEON SUPERVISOR DRYING AND WINDING Ot I73.9 PERIPHERAL VASCULAR DISEASE, UNSPECIFIED 04/07/2016 CRIS MCKEON SUPERVISOR DRYING AND WINDING Ot I77.1 STRICTURE OF ARTERY 04/07/2016 CRIS MCKEON L SUPERVISOR DRYING AND WINDING Ot I77.9 DISORDER OF ARTERIES AND ARTERIOLES, UNS 04/07/2016 CRIS MCKEON L SUPERVISOR DRYING AND WINDING Ot R06.09 OTHER FORMS OF DYSPNEA 04/07/2016 FLETCHERCRIS FREEMAN L SUPERVISOR DRYING AND WINDING Ot R78.5 FINDING OF OTHER PSYCHOTROPIC DRUG IN BL 04/07/2016 LINDA CRIS L SUPERVISOR DRYING AND WINDING Ot E78.5 HYPERLIPIDEMIA, UNSPECIFIED 04/07/2016 FLETCHERPETE CRIS L SUPERVISOR DRYING AND WINDING Ot F17.200 NICOTINE DEPENDENCE, UNSPECIFIED, UNCOMP 04/07/2016 FLETCHERPETE CRIS L SUPERVISOR DRYING AND WINDING Ot I 10 ESSENTIAL (PRIMARY) HYPERTENSION 04/07/2016 FLETCHERPETE CRIS L SUPERVISOR DRYING AND WINDING Ot I25.10 ATHSCL HEART DISEASE OF [place] CORONARY 04/07/2016 FLETCHERPETE CRIS L SUPERVISOR DRYING AND WINDING Ot I45.10 UNSPECIFIED RIGHT BUNDLE-BRANCH BLOCK 04/07/2016 FLETCHERPETE CRIS L SUPERVISOR DRYING AND WINDING Ot I73.9 PERIPHERAL VASCULAR DISEASE, UNSPECIFIED 04/07/2016 LINDA CRIS Jack SUPERVISOR DRYING AND WINDING Ot I77.1 STRICTURE OF ARTERY 04/07/2016 CRIS MCKEON SUPERVISOR DRYING AND WINDING Ot I77.9 DISORDER OF ARTERIES AND ARTERIOLES, UNS 04/07/2016 CRIS MCKEON SUPERVISOR DRYING AND WINDING Ot R06.09 OTHER FORMS OF DYSPNEA 04/07/2016 [...] S Ot I25.10 ATHSCL HEART DISEASE OF [place] CORONARY 04/11/2016 ALYCENDSARAHI BURGOS DOQUELINE S Ot I48.0 PAROXYSMAL ATRIAL FIBRILLATION 04/11/2016 ALYCENDSARAHI BURGOS DOQUELINE S Ot I50.41 ACUTE COMBINED SYSTOLIC AND DIASTOLIC (C 04/11/2016 ALYCENDSARAHI BURGOS DOQUELINE S Ot I70.213 ATHSCL [place] ARTERIES OF EXTRM W INTRMT 04/11/2016 ALYCENDSARAHI [...] S Ot I25.10 ATHSCL HEART DISEASE OF [place] CORONARY 04/16/2016 ALYCENDSARAHI BURGOS DOQUELINE S Ot I48.0 PAROXYSMAL ATRIAL FIBRILLATION 04/16/2016 ALYCENDAUBREY DO GLADYS S Ot I50.41 ACUTE COMBINED SYSTOLIC AND DIASTOLIC (C 04/16/2016 ALYCENDSARAHI BURGOS DOQUELINE S Ot I70.213 ATHSCL [place] ARTERIES OF EXTRM W INTRMT 04/16/2016 ALYCENDSARAHI [...] S Ot I25.10 ATHSCL HEART DISEASE OF [place] CORONARY 04/16/2016 KAREN ORONA DOLINE S Ot I48.0 PAROXYSMAL ATRIAL FIBRILLATION 04/16/2016 KAREN ORONA DOLINE S Ot I50.41 ACUTE COMBINED SYSTOLIC AND DIASTOLIC (C 04/16/2016 ALYCENDER DO GLADYS S Ot I70.213 ATHSCL [place] ARTERIES OF EXTRM W INTRMT 04/16/2016 KAREN [...] S Ot E78.5 HYPERLIPIDEMIA, UNSPECIFIED 04/16/2016 SARAHI ORONA DOQUELINE S Ot F17.210 NICOTINE DEPENDENCE, CIGARETTES, UNCOMPL 04/16/2016 KAREN ORONA DOLINE S Ot I11.0 HYPERTENSIVE HEART DISEASE WITH HEART FA 04/16/2016 KAREN ORONA DOLINE S Ot I25.10 ATHSCL HEART DISEASE OF [place] CORONARY 04/16/2016 KAREN ORONA DOLINE S Ot I48.0 PAROXYSMAL ATRIAL FIBRILLATION 04/16/2016 KAREN ORONA DOLINE S Ot I50.41 ACUTE COMBINED SYSTOLIC AND DIASTOLIC (C 04/16/2016 KAREN ORONA DOLINE S Ot I70.213 ATHSCL [place] ARTERIES OF EXTRM W INTRMT 04/16/2016 KAREN [...] VASCULAR ANGIOPLASTY STATUS W 04/17/2016 FLETCHERCRIS FREEMAN SUPERVISOR DRYING AND WINDING Ot E78.5 HYPERLIPIDEMIA, UNSPECIFIED 04/17/2016 FLETCHERCRIS FREEMAN SUPERVISOR DRYING AND WINDING Ot F17.200 NICOTINE DEPENDENCE, UNSPECIFIED, UNCOMP 04/17/2016 FLETCHERCRIS FREEMAN SUPERVISOR DRYING AND WINDING Ot I 10 ESSENTIAL (PRIMARY) HYPERTENSION 04/17/2016 LINDA CRIS Jack SUPERVISOR DRYING AND WINDING Ot I25.10 ATHSCL HEART DISEASE OF [place] CORONARY 04/17/2016 LINDA CRIS L SUPERVISOR DRYING AND WINDING Ot I45.10 UNSPECIFIED RIGHT BUNDLE-BRANCH BLOCK 04/17/2016 LINDA CRIS Guero SUPERVISOR DRYING AND WINDING Ot I73.9 PERIPHERAL VASCULAR DISEASE, UNSPECIFIED 04/17/2016 LINDA CRIS Guero SUPERVISOR DRYING AND WINDING Ot I77.1 STRICTURE OF ARTERY 04/17/2016 CIRS MCKEON SUPERVISOR DRYING AND WINDING Ot I77.9 DISORDER OF ARTERIES AND ARTERIOLES, UNS 04/17/2016 LINDA CRIS L SUPERVISOR DRYING AND WINDING Ot R06.09 OTHER FORMS OF DYSPNEA 04/17/2016 [...] SPECIF 04/19/2016 DEBI VELEZ MD Ot Z79.82 MCC (CURRENT) USE OF ASPIRIN 04/19/2016 DEBI VELEZ MD Ot Z79.84 MCC (CURRENT) USE OF ORAL HYPOGLYC 04/19/2016 DEBI VELEZ MD, Ot Z79.899 OTHER MCC (CURRENT) DRUG THERAPY 04/19/2016 DEBI VELEZ MD Ot Z95.0 PRESENCE OF CARDIAC PACEMAKER 04/20/2016 AGUSTIN MD, DEBI D Ot E11.649 TYPE 2 DIABETES MELLITUS WITH HYPOGLYCEM 04/20/2016 DEBI VELEZ MD Ot I48.2 CHRONIC ATRIAL FIBRILLATION 04/20/2016 DEBI VELEZ MD, Ot N39.0 URINARY TRACT INFECTION, SITE NOT SPECIF 04/20/2016 DEBI VELEZ MD, Ot Z79.82 LOOSE HAND PACKER (CURRENT) USE OF ASPIRIN 04/20/2016 DEBI VELEZ MD, Ot Z79.84 MCC (CURRENT) USE OF ORAL HYPOGLYC 04/20/2016 DEBI VELEZ MD, Ot Z79.899 OTHER MCC (CURRENT) DRUG THERAPY 04/20/2016 DEBI VELEZ MD, [...] S Ot I25.10 ATHSCL HEART DISEASE OF [place] CORONARY 04/23/2016 SARAHI ORONA DOQUELINE S Ot [...] 04/23/2016 KAREN ORONA DOLINE S Ot Z79.01 MCC (CURRENT) USE OF ANTICOAGULANT 04/23/2016 KAREN ORONA [...] S Ot I25.10 ATHSCL HEART DISEASE OF [place] CORONARY 04/23/2016 KAREN ORONA DOLINE S Ot [...] 04/23/2016 KAREN ORONA DOLINE S Ot Z79.01 LOOSE HAND PACKER (CURRENT) USE OF ANTICOAGULANT 04/23/2016 KAREN ORONA [...] S Ot I25.10 ATHSCL HEART DISEASE OF [place] CORONARY 04/28/2016 KAREN ORONA DOLINE S Ot [...] 04/28/2016 SARAHI ORONA DOQUELINE S Ot Z79.01 LOOSE HAND PACKER (CURRENT) USE OF ANTICOAGULANT 04/28/2016 KAREN ORONA [...] S Ot I25.10 ATHSCL HEART DISEASE OF [place] CORONARY 04/28/2016 ADWOA WARE GLADYS S Ot [...] S Ot R39.11 HESITANCY OF MICTURITION 04/28/2016 LGADYS ORONA DO S Ot Z79.01 LOOSE HAND PACKER (CURRENT) USE OF ANTICOAGULANT 04/28/2016 KAREN ORONA [...] S Ot I25.10 ATHSCL HEART DISEASE OF [place] CORONARY 04/29/2016 KAREN ORONA DOLINE S Ot [...] Ot R39.11 HESITANCY OF MICTURITION 04/29/2016 GLADYS ORONA DO Ot Z79.01 MCC (CURRENT) USE OF ANTICOAGULANT 04/29/2016 GLADYS ORONA [...] DO Ot I25.10 ATHSCL HEART DISEASE OF [place] CORONARY 04/30/2016 GLADYS ORONA DO Ot I48.2 [...] MICTURITION 04/30/2016 GLADYS ORONA DO Ot Z79.01 LOOSE HAND PACKER (CURRENT) USE OF ANTICOAGULANT 04/30/2016 GLADYS ORONA DO Ot Z91.81 HISTORY OF FALLING 04/30/2016 GLADYS ORONA DO Ot Z95.0 PRESENCE OF CARDIAC PACEMAKER 05/19/2016 CRIS MCKEON SUPERVISOR DRYING AND WINDING Ot E78.5 HYPERLIPIDEMIA, UNSPECIFIED 05/19/2016 CRIS MCKEON L SUPERVISOR DRYING AND WINDING Ot F17.200 NICOTINE DEPENDENCE, UNSPECIFIED, UNCOMP 05/19/2016 BAIPETE CRIS L SUPERVISOR DRYING AND WINDING Ot I 10 ESSENTIAL (PRIMARY) HYPERTENSION 05/19/2016 LINDA CRIS L SUPERVISOR DRYING AND WINDING Ot I25.10 ATHSCL HEART DISEASE OF [place] CORONARY 05/19/2016 CRIS MCKEON L SUPERVISOR DRYING AND WINDING Ot I45.10 UNSPECIFIED RIGHT BUNDLE-BRANCH BLOCK 05/19/2016 MANPREET MCKEONHER L SUPERVISOR DRYING AND WINDING Ot I73.9 PERIPHERAL VASCULAR DISEASE, UNSPECIFIED 05/19/2016 MANPREET MCKEONHER L SUPERVISOR DRYING AND WINDING Ot I77.1 STRICTURE OF ARTERY 05/19/2016 LINDA CRIS L SUPERVISOR DRYING AND WINDING Ot I77.9 DISORDER OF ARTERIES AND ARTERIOLES, UNS 05/19/2016 MANPREET MCKEONHER L SUPERVISOR DRYING AND WINDING Ot R06.09 OTHER FORMS OF DYSPNEA 05/19/2016 YOSSI HO, JESSIE Carter Ot J90 PLEURAL EFFUSION, NOT ELSEWHERE CLASSIFI 05/19/2016 JESSIE SY MD Ot 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, PART UNSP, W/O PERF 05/19/2016 JESSIE SY MD Ot R31.0 GROSS HEMATURIA 07/11/2016 CRIS MCKEON SUPERVISOR DRYING AND WINDING Ot E78.5 HYPERLIPIDEMIA, UNSPECIFIED 07/11/2016 CRIS MCKEON SUPERVISOR DRYING AND WINDING Ot F17.200 NICOTINE DEPENDENCE, UNSPECIFIED, UNCOMP 07/11/2016 CRIS MCKEON L SUPERVISOR DRYING AND WINDING Ot I 10 ESSENTIAL (PRIMARY) HYPERTENSION 07/11/2016 CRIS MCKEON L SUPERVISOR DRYING AND WINDING Ot I25.10 ATHSCL HEART DISEASE OF [place] CORONARY 07/11/2016 CRIS MCKEON SUPERVISOR DRYING AND WINDING Ot I45.10 UNSPECIFIED RIGHT BUNDLE-BRANCH BLOCK 07/11/2016 CRIS MCKEON SUPERVISOR DRYING AND WINDING Ot I73.9 PERIPHERAL VASCULAR DISEASE, UNSPECIFIED 07/11/2016 CRIS MCKEON L SUPERVISOR DRYING AND WINDING Ot I77.1 STRICTURE OF ARTERY 07/11/2016 CRIS MCKEON SUPERVISOR DRYING AND WINDING Ot I77.9 DISORDER OF ARTERIES AND ARTERIOLES, UNS 07/11/2016 CRIS MCKEON SUPERVISOR DRYING AND WINDING Ot R06.09 OTHER FORMS OF DYSPNEA 11/14/2016 DEBI VELEZ MD Ot E11.649 TYPE 2 DIABETES MELLITUS WITH HYPOGLYCEM 11/14/2016 DEBI VELEZ MD Ot I48.2 CHRONIC ATRIAL FIBRILLATION 11/14/2016 DEBI VELEZ MD Ot N39.0 URINARY TRACT INFECTION, SITE NOT SPECIF 11/14/2016 DEBI VELEZ MD Ot Z79.82 LOOSE HAND PACKER (CURRENT) USE OF ASPIRIN 11/14/2016 DEBI VELEZ MD Ot Z79.84 LOOSE HAND PACKER (CURRENT) USE OF ORAL HYPOGLYC 11/14/2016 DEBI VELEZ MD Ot Z79.899 OTHER MCC (CURRENT) DRUG THERAPY 11/14/2016 DEBI VELEZ MD Ot Z95.0 PRESENCE OF CARDIAC PACEMAKER 05/05/2017 GLADYS ORONA DO S Ot 793.11 SOLITARY PULMONARY NODULE 05/05/2017 GLADYS ORONA DO S Ot V81.5 SCREEN FOR NEPHROPATHY 05/05/2017 GLADYS ORONA DO S Ot 599.71 GROSS HEMATURIA 05/05/2017 CRIS MCKEON SUPERVISOR DRYING AND WINDING Ot F17.200 NICOTINE DEPENDENCE, UNSPECIFIED, UNCOMP 05/05/2017 CRIS MCKEON SUPERVISOR DRYING AND WINDING Ot I 10 ESSENTIAL (PRIMARY) HYPERTENSION 05/05/2017 CRIS MCKEON SUPERVISOR DRYING AND WINDING Ot I25.10 ATHSCL HEART DISEASE OF [place] CORONARY 05/05/2017 CRIS MCKEON L SUPERVISOR DRYING AND WINDING Ot I45.10 UNSPECIFIED RIGHT BUNDLE-BRANCH BLOCK 05/05/2017 CRIS MCKEON L SUPERVISOR DRYING AND WINDING Ot I73.9 PERIPHERAL VASCULAR DISEASE, UNSPECIFIED 05/05/2017 CRIS MCKEON L SUPERVISOR DRYING AND WINDING Ot I77.1 STRICTURE OF ARTERY 05/05/2017 CRIS MCKEON L SUPERVISOR DRYING AND WINDING Ot I77.9 DISORDER OF ARTERIES AND ARTERIOLES, UNS 05/05/2017 CRIS MCKEON L SUPERVISOR DRYING AND WINDING Ot R06.09 OTHER FORMS OF DYSPNEA 05/05/2017 CRIS MCKEON L SUPERVISOR DRYING AND WINDING Ot R78.5 FINDING OF OTHER PSYCHOTROPIC DRUG IN BL 05/05/2017 LINDA CRIS L SUPERVISOR DRYING AND WINDING Ot E78.5 HYPERLIPIDEMIA, UNSPECIFIED 05/05/2017 LINDA CRIS L SUPERVISOR DRYING AND WINDING Ot F17.200 NICOTINE DEPENDENCE, UNSPECIFIED, UNCOMP 05/05/2017 CRIS MCKEON L SUPERVISOR DRYING AND WINDING Ot I 10 ESSENTIAL (PRIMARY) HYPERTENSION 05/05/2017 FLETCHERCRIS FREEMAN L SUPERVISOR DRYING AND WINDING Ot I25.10 ATHSCL HEART DISEASE OF [place] CORONARY 05/05/2017 CRIS MCKEON L SUPERVISOR DRYING AND WINDING Ot I45.10 UNSPECIFIED RIGHT BUNDLE-BRANCH BLOCK 05/05/2017 CRIS MCKEON L SUPERVISOR DRYING AND WINDING Ot I73.9 PERIPHERAL VASCULAR DISEASE, UNSPECIFIED 05/05/2017 CRIS MCKEON L SUPERVISOR DRYING AND WINDING Ot I77.1 STRICTURE OF ARTERY 05/05/2017 CRIS MCKEON L SUPERVISOR DRYING AND WINDING Ot I77.9 DISORDER OF ARTERIES AND ARTERIOLES, UNS 05/05/2017 FLETCHERCRIS FREEMAN L SUPERVISOR DRYING AND WINDING Ot R06.09 OTHER FORMS OF DYSPNEA 05/05/2017 [...] 599.71 GROSS HEMATURIA 05/05/2017 BAICRIS FREEMAN L SUPERVISOR DRYING AND WINDING Ot F17.200 NICOTINE DEPENDENCE, UNSPECIFIED, UNCOMP 05/05/2017 BAIMA, CRIS L SUPERVISOR DRYING AND WINDING Ot I 10 ESSENTIAL (PRIMARY) HYPERTENSION 05/05/2017 BAIMA, CRIS L SUPERVISOR DRYING AND WINDING Ot I25.10 ATHSCL HEART DISEASE OF [place] CORONARY 05/05/2017 BAIMA, CRIS L SUPERVISOR DRYING AND WINDING Ot I45.10 UNSPECIFIED RIGHT BUNDLE-BRANCH BLOCK 05/05/2017 BAIMA, CRIS L SUPERVISOR DRYING AND WINDING Ot I73.9 PERIPHERAL VASCULAR DISEASE, UNSPECIFIED 05/05/2017 BAIMA, CRIS L SUPERVISOR DRYING AND WINDING Ot I77.1 STRICTURE OF ARTERY 05/05/2017 BAIMA, CRIS L SUPERVISOR DRYING AND WINDING Ot I77.9 DISORDER OF ARTERIES AND ARTERIOLES, UNS 05/05/2017 BAIMA, CRIS L SUPERVISOR DRYING AND WINDING Ot R06.09 OTHER FORMS OF DYSPNEA 05/05/2017 LINDA CRIS L SUPERVISOR DRYING AND WINDING Ot R78.5 FINDING OF OTHER PSYCHOTROPIC DRUG IN BL 05/05/2017 FLETCHERPETE CRIS L SUPERVISOR DRYING AND WINDING Ot E78.5 HYPERLIPIDEMIA, UNSPECIFIED 05/05/2017 BAIMA, CRIS L SUPERVISOR DRYING AND WINDING Ot F17.200 NICOTINE DEPENDENCE, UNSPECIFIED, UNCOMP 05/05/2017 BAIMA, CRIS L SUPERVISOR DRYING AND WINDING Ot I 10 ESSENTIAL (PRIMARY) HYPERTENSION 05/05/2017 BAIPETE, CRIS L SUPERVISOR DRYING AND WINDING Ot I25.10 ATHSCL HEART DISEASE OF [place] CORONARY 05/05/2017 LINDA CRIS L SUPERVISOR DRYING AND WINDING Ot I45.10 UNSPECIFIED RIGHT BUNDLE-BRANCH BLOCK 05/05/2017 BAIMA, CRIS L SUPERVISOR DRYING AND WINDING Ot I73.9 PERIPHERAL VASCULAR DISEASE, UNSPECIFIED 05/05/2017 BAIMA, CRIS L SUPERVISOR DRYING AND WINDING Ot I77.1 STRICTURE OF ARTERY 05/05/2017 BAIMA, CRIS L SUPERVISOR DRYING AND WINDING Ot I77.9 DISORDER OF ARTERIES AND ARTERIOLES, UNS 05/05/2017 BAIMA, RCIS L SUPERVISOR DRYING AND WINDING Ot R06.09 OTHER FORMS OF DYSPNEA 05/05/2017 [...] Ot 599.71 GROSS HEMATURIA 08/03/2017 CRIS MCKEON SUPERVISOR DRYING AND WINDING Ot F17.200 NICOTINE DEPENDENCE, UNSPECIFIED, UNCOMP 08/03/2017 CRIS MCKEON SUPERVISOR DRYING AND WINDING Ot I 10 ESSENTIAL (PRIMARY) HYPERTENSION 08/03/2017 CRIS MCKEON SUPERVISOR DRYING AND WINDING Ot I25.10 ATHSCL HEART DISEASE OF [place] CORONARY 08/03/2017 CRIS MCKEON SUPERVISOR DRYING AND WINDING Ot I45.10 UNSPECIFIED RIGHT BUNDLE-BRANCH BLOCK 08/03/2017 CRIS MCKEON SUPERVISOR DRYING AND WINDING Ot I73.9 PERIPHERAL VASCULAR DISEASE, UNSPECIFIED 08/03/2017 CRIS MCKEON SUPERVISOR DRYING AND WINDING Ot I77.1 STRICTURE OF ARTERY 08/03/2017 CRIS MCKEON SUPERVISOR DRYING AND WINDING Ot I77.9 DISORDER OF ARTERIES AND ARTERIOLES, UNS 08/03/2017 CRIS MCKEON SUPERVISOR DRYING AND WINDING Ot R06.09 OTHER FORMS OF DYSPNEA 08/03/2017 CRIS MCKEON SUPERVISOR DRYING AND WINDING Ot R78.5 FINDING OF OTHER PSYCHOTROPIC DRUG IN BL 08/03/2017 CRIS MCKEON SUPERVISOR DRYING AND WINDING Ot E78.5 HYPERLIPIDEMIA, UNSPECIFIED 08/03/2017 CRIS MCKEON SUPERVISOR DRYING AND WINDING Ot F17.200 NICOTINE DEPENDENCE, UNSPECIFIED, UNCOMP 08/03/2017 CRIS MCKEON L SUPERVISOR DRYING AND WINDING Ot I 10 ESSENTIAL (PRIMARY) HYPERTENSION 08/03/2017 CRIS MCKEON SUPERVISOR DRYING AND WINDING Ot I25.10 ATHSCL HEART DISEASE OF [place] CORONARY 08/03/2017 CRIS MCKEON SUPERVISOR DRYING AND WINDING Ot I45.10 UNSPECIFIED RIGHT BUNDLE-BRANCH BLOCK 08/03/2017 CRIS MCKEON SUPERVISOR DRYING AND WINDING Ot I73.9 PERIPHERAL VASCULAR DISEASE, UNSPECIFIED 08/03/2017 CRIS MCKEON SUPERVISOR DRYING AND WINDING Ot I77.1 STRICTURE OF ARTERY 08/03/2017 CRIS MCKEON L SUPERVISOR DRYING AND WINDING Ot I77.9 DISORDER OF ARTERIES AND ARTERIOLES, UNS 08/03/2017 CRIS MCKEON SUPERVISOR DRYING AND WINDING Ot R06.09 OTHER FORMS OF DYSPNEA 08/03/2017 [...] CYST OF KIDNEY, ACQUIRED 08/11/2017 BARTOLO GUY PROCESS DESIGN ENGINEER Ot M47.816 SPONDYLOSIS W/O MYELOPATHY OR RADICULOPA 08/11/2017 BARTOLO GUY PROCESS DESIGN ENGINEER Ot N28.1 CYST OF KIDNEY, ACQUIRED 08/25/2017 MALENA, BARTOLO R PROCESS DESIGN ENGINEER Ot M47.816 SPONDYLOSIS W/O MYELOPATHY OR RADICULOPA 08/25/2017 MALENABARTOLO R PROCESS DESIGN ENGINEER Ot N28.1 CYST OF KIDNEY, ACQUIRED 08/25/2017 MALENA, BARTOLO R PROCESS DESIGN ENGINEER Ot M47.816 SPONDYLOSIS W/O MYELOPATHY OR RADICULOPA 08/25/2017 MALENA, BARTOLO R PROCESS DESIGN ENGINEER Ot N28.1 CYST OF KIDNEY, ACQUIRED 08/26/2017 MALENA, BARTOLO R PROCESS DESIGN ENGINEER Ot M47.816 SPONDYLOSIS W/O MYELOPATHY OR RADICULOPA 08/26/2017 MALENA, BARTOLO R PROCESS DESIGN ENGINEER Ot N28.1 CYST OF KIDNEY, ACQUIRED 09/03/2017 RIDDHI HO FACC, VELASQUEZ FACP CCDS Ot E78.5 HYPERLIPIDEMIA, UNSPECIFIED 09/03/2017 RIDDHI HO FACC, ALI FACP CCDS Ot I08.1 RHEUMATIC DISORDERS OF BOTH MITRAL AND T 09/03/2017 RIDDHI HO FACC, ALI FACP CCDS Ot I10 ESSENTIAL (PRIMARY) HYPERTENSION 09/03/2017 RIDDHI HO FACC, ALI FACP CCDS Ot I25.10 ATHSCL HEART DISEASE OF [place] CORONARY 09/03/2017 RIDDHI HO FACC, ALI FACP [...] CCDS Ot I25.10 ATHSCL HEART DISEASE OF [place] CORONARY 09/22/2017 RIDDHI HO FACC, ALI FACP [...] 599.71 GROSS HEMATURIA 12/04/2017 LINDA CRIS L SUPERVISOR DRYING AND WINDING Ot F17.200 NICOTINE DEPENDENCE, UNSPECIFIED, UNCOMP 12/04/2017 LINDA CRIS L SUPERVISOR DRYING AND WINDING Ot I 10 ESSENTIAL (PRIMARY) HYPERTENSION 12/04/2017 LINDA CRIS L SUPERVISOR DRYING AND WINDING Ot I25.10 ATHSCL HEART DISEASE OF [place] CORONARY 12/04/2017 LINDA CRIS L SUPERVISOR DRYING AND WINDING Ot I45.10 UNSPECIFIED RIGHT BUNDLE-BRANCH BLOCK 12/04/2017 MANPREET MCKEONHER L SUPERVISOR DRYING AND WINDING Ot I73.9 PERIPHERAL VASCULAR DISEASE, UNSPECIFIED 12/04/2017 CRIS MCKEON L SUPERVISOR DRYING AND WINDING Ot I77.1 STRICTURE OF ARTERY 12/04/2017 CRIS MCKEON L SUPERVISOR DRYING AND WINDING Ot I77.9 DISORDER OF ARTERIES AND ARTERIOLES, UNS 12/04/2017 LINDA CRIS L SUPERVISOR DRYING AND WINDING Ot R06.09 OTHER FORMS OF DYSPNEA 12/04/2017 MANPREET MCKEONHER L SUPERVISOR DRYING AND WINDING Ot R78.5 FINDING OF OTHER PSYCHOTROPIC DRUG IN BL 12/04/2017 LINDA CRIS L SUPERVISOR DRYING AND WINDING Ot E78.5 HYPERLIPIDEMIA, UNSPECIFIED 12/04/2017 FLETCHERMA CRIS L SUPERVISOR DRYING AND WINDING Ot F17.200 NICOTINE DEPENDENCE, UNSPECIFIED, UNCOMP 12/04/2017 BAIMA, CRIS L SUPERVISOR DRYING AND WINDING Ot I 10 ESSENTIAL (PRIMARY) HYPERTENSION 12/04/2017 FLETCHERMA CRIS L SUPERVISOR DRYING AND WINDING Ot I25.10 ATHSCL HEART DISEASE OF [place] CORONARY 12/04/2017 LINDA CRIS L SUPERVISOR DRYING AND WINDING Ot I45.10 UNSPECIFIED RIGHT BUNDLE-BRANCH BLOCK 12/04/2017 LINDA CRIS L SUPERVISOR DRYING AND WINDING Ot I73.9 PERIPHERAL VASCULAR DISEASE, UNSPECIFIED 12/04/2017 LINDA CRIS L SUPERVISOR DRYING AND WINDING Ot I77.1 STRICTURE OF ARTERY 12/04/2017 CRIS MCKEON SUPERVISOR DRYING AND WINDING Ot I77.9 DISORDER OF ARTERIES AND ARTERIOLES, UNS 12/04/2017 CRIS MCKEON SUPERVISOR DRYING AND WINDING Ot R06.09 OTHER FORMS OF DYSPNEA 12/04/2017 [...] CCDS Ot I25.10 ATHSCL HEART DISEASE OF [place] CORONARY 12/04/2017 RIDDHI HO FACC, ALI FACP [...] W/O MYELOPATHY OR RADICULOPA 12/04/2017 BARTOLO GUY PROCESS DESIGN ENGINEER Ot N28.1 CYST OF KIDNEY, ACQUIRED 12/04/2017 BARTOLO GUY PROCESS DESIGN ENGINEER Ot M47.816 SPONDYLOSIS W/O MYELOPATHY OR RADICULOPA 12/04/2017 BARTOLO GUY PROCESS DESIGN ENGINEER Ot N28.1 CYST OF KIDNEY, ACQUIRED 12/09/2017 [...] 599.71 GROSS HEMATURIA 06/02/2018 CRIS MCKEON L SUPERVISOR DRYING AND WINDING Ot F17.200 NICOTINE DEPENDENCE, UNSPECIFIED, UNCOMP 06/02/2018 CRIS MCKEON L SUPERVISOR DRYING AND WINDING Ot I 10 ESSENTIAL (PRIMARY) HYPERTENSION 06/02/2018 CRIS MCKEON L SUPERVISOR DRYING AND WINDING Ot I25.10 ATHSCL HEART DISEASE OF [place] CORONARY 06/02/2018 CRIS MCKEON L SUPERVISOR DRYING AND WINDING Ot I45.10 UNSPECIFIED RIGHT BUNDLE-BRANCH BLOCK 06/02/2018 LINDA CRIS L SUPERVISOR DRYING AND WINDING Ot I73.9 PERIPHERAL VASCULAR DISEASE, UNSPECIFIED 06/02/2018 MANPREET MCKEONHER L SUPERVISOR DRYING AND WINDING Ot I77.1 STRICTURE OF ARTERY 06/02/2018 LINDA CRIS L SUPERVISOR DRYING AND WINDING Ot I77.9 DISORDER OF ARTERIES AND ARTERIOLES, UNS 06/02/2018 MANPREET MCKEONHER L SUPERVISOR DRYING AND WINDING Ot R06.09 OTHER FORMS OF DYSPNEA 06/02/2018 CRIS MCKEON L SUPERVISOR DRYING AND WINDING Ot R78.5 FINDING OF OTHER PSYCHOTROPIC DRUG IN BL 06/02/2018 CRIS MCKEON L SUPERVISOR DRYING AND WINDING Ot E78.5 HYPERLIPIDEMIA, UNSPECIFIED 06/02/2018 FLETCHERMA CRIS L SUPERVISOR DRYING AND WINDING Ot F17.200 NICOTINE DEPENDENCE, UNSPECIFIED, UNCOMP 06/02/2018 BAIMA CRIS L SUPERVISOR DRYING AND WINDING Ot I 10 ESSENTIAL (PRIMARY) HYPERTENSION 06/02/2018 LINDA CRIS L SUPERVISOR DRYING AND WINDING Ot I25.10 ATHSCL HEART DISEASE OF [place] CORONARY 06/02/2018 CRIS MCKEON SUPERVISOR DRYING AND WINDING Ot I45.10 UNSPECIFIED RIGHT BUNDLE-BRANCH BLOCK 06/02/2018 CRIS MCKEON Guero SUPERVISOR DRYING AND WINDING Ot I73.9 PERIPHERAL VASCULAR DISEASE, UNSPECIFIED 06/02/2018 CRIS MCKEON SUPERVISOR DRYING AND WINDING Ot I77.1 STRICTURE OF ARTERY 06/02/2018 CRIS MCKEON SUPERVISOR DRYING AND WINDING Ot I77.9 DISORDER OF ARTERIES AND ARTERIOLES, UNS 06/02/2018 LINDA CRIS Jack SUPERVISOR DRYING AND WINDING Ot R06.09 OTHER FORMS OF DYSPNEA 06/02/2018 [...] CCDS Ot I25.10 ATHSCL HEART DISEASE OF [place] CORONARY 06/02/2018 RIDDHI HO FACC, ALI FACP CCDS Ot I48.0 PAROXYSMAL ATRIAL FIBRILLATION 06/02/2018 RIDDHI HO FACC, ALI FACP CCDS Ot I73.9 PERIPHERAL VASCULAR DISEASE, UNSPECIFIED 06/02/2018 RIDDHI HO FACC, ALI FACP CCDS Ot Z72.0 TOBACCO USE 06/02/2018 RIDDHI MD FACC, ALI FACP CCDS Ot Z95.0 PRESENCE OF CARDIAC PACEMAKER 06/02/2018 BARTOLO GUY Benjamin PROCESS DESIGN ENGINEER Ot M47.816 SPONDYLOSIS W/O MYELOPATHY OR RADICULOPA 06/02/2018 BARTOLO GUY PROCESS DESIGN ENGINEER Ot N28.1 CYST OF KIDNEY, ACQUIRED 06/05/2018 [...] H47.10 UNSPECIFIED PAPILLEDEMA 05/08/2019 BAIMA, CRIS L SUPERVISOR DRYING AND WINDING Ot F17.200 NICOTINE DEPENDENCE, UNSPECIFIED, UNCOMP 05/08/2019 BAIMA, CRIS L SUPERVISOR DRYING AND WINDING Ot I 10 ESSENTIAL (PRIMARY) HYPERTENSION 05/08/2019 BAIMA, CRIS L SUPERVISOR DRYING AND WINDING Ot I25.10 ATHSCL HEART DISEASE OF [place] CORONARY 05/08/2019 BAIMA, CRIS L SUPERVISOR DRYING AND WINDING Ot I45.10 UNSPECIFIED RIGHT BUNDLE-BRANCH BLOCK 05/08/2019 BAIMA, CRIS L SUPERVISOR DRYING AND WINDING Ot I73.9 PERIPHERAL VASCULAR DISEASE, UNSPECIFIED 05/08/2019 BAIMA, CRIS L SUPERVISOR DRYING AND WINDING Ot I77.1 STRICTURE OF ARTERY 05/08/2019 BAIMA, CRIS L SUPERVISOR DRYING AND WINDING Ot I77.9 DISORDER OF ARTERIES AND ARTERIOLES, UNS 05/08/2019 BAIMA, CRIS L SUPERVISOR DRYING AND WINDING Ot R06.09 OTHER FORMS OF DYSPNEA 05/08/2019 BAIMA, CRIS L SUPERVISOR DRYING AND WINDING Ot R78.5 FINDING OF OTHER PSYCHOTROPIC DRUG IN BL 05/08/2019 BAIMA, CRIS L SUPERVISOR DRYING AND WINDING Ot E78.5 HYPERLIPIDEMIA, UNSPECIFIED 05/08/2019 BAIMA, CRIS L SUPERVISOR DRYING AND WINDING Ot F17.200 NICOTINE DEPENDENCE, UNSPECIFIED, UNCOMP 05/08/2019 BAIMA, CRIS L SUPERVISOR DRYING AND WINDING Ot I 10 ESSENTIAL (PRIMARY) HYPERTENSION 05/08/2019 BAIMA, CRIS L SUPERVISOR DRYING AND WINDING Ot I25.10 ATHSCL HEART DISEASE OF [place] CORONARY 05/08/2019 BAIMA, CRIS L SUPERVISOR DRYING AND WINDING Ot I45.10 UNSPECIFIED RIGHT BUNDLE-BRANCH BLOCK 05/08/2019 BAIMA, CRIS L SUPERVISOR DRYING AND WINDING Ot I73.9 PERIPHERAL VASCULAR DISEASE, UNSPECIFIED 05/08/2019 BAIMA, CRIS L SUPERVISOR DRYING AND WINDING Ot I77.1 STRICTURE OF ARTERY 05/08/2019 BAIMA, CRIS L SUPERVISOR DRYING AND WINDING Ot I77.9 DISORDER OF ARTERIES AND ARTERIOLES, UNS 05/08/2019 BAIMA, CRIS L SUPERVISOR DRYING AND WINDING Ot R06.09 OTHER FORMS OF DYSPNEA 05/08/2019 [...] CCDS Ot I25.10 ATHSCL HEART DISEASE OF [place] CORONARY 05/08/2019 RIDDHI HO FACC, ALI FACP CCDS Ot I48.0 PAROXYSMAL ATRIAL FIBRILLATION 05/08/2019 RIDDHI HO FACC, ALI FACP CCDS Ot I73.9 PERIPHERAL VASCULAR DISEASE, UNSPECIFIED 05/08/2019 RIDDHI HO FACC, ALI FACP CCDS Ot Z72.0 TOBACCO USE 05/08/2019 RIDDHI HO FACC, ALI FACP CCDS Ot Z95.0 PRESENCE OF CARDIAC PACEMAKER 05/08/2019 BARTOLO GUY PROCESS DESIGN ENGINEER Ot M47.816 SPONDYLOSIS W/O MYELOPATHY OR RADICULOPA 05/08/2019 BARTOLO GUY R PROCESS DESIGN ENGINEER Ot N28.1 CYST OF KIDNEY, ACQUIRED 05/08/2019 [...] H47.10 UNSPECIFIED PAPILLEDEMA 05/09/2019 BAIMA, CRIS L SUPERVISOR DRYING AND WINDING Ot F17.200 NICOTINE DEPENDENCE, UNSPECIFIED, UNCOMP 05/09/2019 BAIMA, CRIS L SUPERVISOR DRYING AND WINDING Ot I 10 ESSENTIAL (PRIMARY) HYPERTENSION 05/09/2019 BAIMA, CRIS L SUPERVISOR DRYING AND WINDING Ot I25.10 ATHSCL HEART DISEASE OF [place] CORONARY 05/09/2019 BAIMA, CRIS L SUPERVISOR DRYING AND WINDING Ot I45.10 UNSPECIFIED RIGHT BUNDLE-BRANCH BLOCK 05/09/2019 BAIMA, CRIS L SUPERVISOR DRYING AND WINDING Ot I73.9 PERIPHERAL VASCULAR DISEASE, UNSPECIFIED 05/09/2019 BAIMA, CRIS L SUPERVISOR DRYING AND WINDING Ot I77.1 STRICTURE OF ARTERY 05/09/2019 BAIMA, CRIS L SUPERVISOR DRYING AND WINDING Ot I77.9 DISORDER OF ARTERIES AND ARTERIOLES, UNS 05/09/2019 BAIMA, CRIS L SUPERVISOR DRYING AND WINDING Ot R06.09 OTHER FORMS OF DYSPNEA 05/09/2019 BAIMA, CRIS L SUPERVISOR DRYING AND WINDING Ot R78.5 FINDING OF OTHER PSYCHOTROPIC DRUG IN BL 05/09/2019 BAIMA, CRIS L SUPERVISOR DRYING AND WINDING Ot E78.5 HYPERLIPIDEMIA, UNSPECIFIED 05/09/2019 BAIMA, CRIS L SUPERVISOR DRYING AND WINDING Ot F17.200 NICOTINE DEPENDENCE, UNSPECIFIED, UNCOMP 05/09/2019 BAIMA, CRIS L SUPERVISOR DRYING AND WINDING Ot I 10 ESSENTIAL (PRIMARY) HYPERTENSION 05/09/2019 BAIMA, CRIS L SUPERVISOR DRYING AND WINDING Ot I25.10 ATHSCL HEART DISEASE OF [place] CORONARY 05/09/2019 BAIMA, CRIS L SUPERVISOR DRYING AND WINDING Ot I45.10 UNSPECIFIED RIGHT BUNDLE-BRANCH BLOCK 05/09/2019 BAICRIS FREEMAN SUPERVISOR DRYING AND WINDING Ot I73.9 PERIPHERAL VASCULAR DISEASE, UNSPECIFIED 05/09/2019 CRIS MCKEON SUPERVISOR DRYING AND WINDING Ot I77.1 STRICTURE OF ARTERY 05/09/2019 CRIS MCKEON SUPERVISOR DRYING AND WINDING Ot I77.9 DISORDER OF ARTERIES AND ARTERIOLES, UNS 05/09/2019 FLETCHERCRIS FREEMAN SUPERVISOR DRYING AND WINDING Ot R06.09 OTHER FORMS OF DYSPNEA 05/09/2019 [...] CCDS Ot I25.10 ATHSCL HEART DISEASE OF [place] CORONARY 05/09/2019 RIDDHI HO FACC, ALI FACP CCDS Ot I48.0 PAROXYSMAL ATRIAL FIBRILLATION 05/09/2019 RIDDHI HO FACC, ALI FACP CCDS Ot I73.9 PERIPHERAL VASCULAR DISEASE, UNSPECIFIED 05/09/2019 RIDDHI HO FACC, ALI FACP CCDS Ot Z72.0 TOBACCO USE 05/09/2019 RIDDHI HO FACC, ALI FACP CCDS Ot Z95.0 PRESENCE OF CARDIAC PACEMAKER 05/09/2019 MALENA, BARTOLO R PROCESS DESIGN ENGINEER Ot M47.816 SPONDYLOSIS W/O MYELOPATHY OR RADICULOPA 05/09/2019 MALENA BARTOLO Benjamin PROCESS DESIGN ENGINEER Ot N28.1 CYST OF KIDNEY, ACQUIRED 05/09/2019 [...] Ot I25. 10 ATHSCL HEART DISEASE OF [place] CORONARY 05/12/2019 FABIAN GOMES MD Ot I34. [...] 05/12/2019 FABIAN GOMES MD Ot I70.213 ATHSCL [place] ARTERIES OF EXTRM W INTRMT 05/12/2019 FABIAN [...] 05/12/2019 FABIAN GOMES MD Ot Z79. 01 MCC (CURRENT) USE OF ANTICOAGULANT 05/12/2019 FABIAN GOMES MD Ot Z79. 84 MCC (CURRENT) USE OF ORAL HYPOGLYC 05/12/2019 FABIAN [...] Ot I25. 10 ATHSCL HEART DISEASE OF [place] CORONARY 05/13/2019 FABIAN GOMES MD, Ot I34. [...] 05/13/2019 FABIAN GOMES MD, Ot I70.213 ATHSCL [place] ARTERIES OF EXTRM W INTRMT 05/13/2019 FABIAN [...] 05/13/2019 FABIAN GOMES MD, Ot Z79. 01 MCC (CURRENT) USE OF ANTICOAGULANT 05/13/2019 FABIAN GOMES MD, Ot Z79. 84 LOOSE HAND PACKER (CURRENT) USE OF ORAL HYPOGLYC 05/13/2019 FABIAN [...] Ot I25. 10 ATHSCL HEART DISEASE OF [place] CORONARY 05/13/2019 FABIAN GOMES MD, Ot I34. [...] 05/13/2019 FABIAN GOMES MD Ot I70.213 ATHSCL [place] ARTERIES OF EXTRM W INTRMT 05/13/2019 FABIAN [...] 05/13/2019 FABIAN GOMES MD, Ot Z79. 01 MCC (CURRENT) USE OF ANTICOAGULANT 05/13/2019 FABIAN GOMES MD Ot Z79. 84 LOOSE HAND PACKER (CURRENT) USE OF ORAL HYPOGLYC 05/13/2019 FABIAN GOMES MD, Ot Z86. 73 PRSNL HX OF TIA (TIA), AND CEREB INFRC W 05/13/2019 FABIAN GOMES MD, Ot Z91. 81 HISTORY OF FALLING 05/13/2019 FABIAN GOMES MD, Ot Z95. 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 VASCULAR ANGIOPLASTY STATUS W Procedures Code Description Performed By Per formed On [id number] EX CISION OF DUODENUM, ENDO 04/22/2016 [id number] EX CISION OF TRANSVERSE COLON, ENDO 04/23/2016 [id number] EX CISION OF RECTUM, ENDO 04/23/2016 Results [...] OF GROWTH Isolated NRG Bacterial blood culture [id number] NRG Bacterial blood culture - 04/07/16 12:15 [...] ABO+Rh group BP NRG Transfusion band number [id number] NRG Blood group antibody screen NEGATIVE NR [...] NEGATIVE Whole blood hemoglobin and hematocrit nandini [facility] - 04/22/16 05:20 Venous blood hemoglobin measurement [...] mg/dL 70-110 Whole blood hemoglobin and hematocrit [facility] - 04/22/16 22:38 Venous blood hemoglobin measurement (mass/volume) 10.1 g/dL 13.3-17.7 Blood hematocrit (volume fraction) 30 % 40-54 Capillary blood glucose measurement by g lucometer (mass/volume) - 04/23/16 05:15 Capillary blood glucose measurement by glucometer (mas s/volume) 200 mg/dL 70-110 Whole blood hemoglobin and hematocrit [facility] - 04/23/16 05:40 Venous blood hemoglobin measurement (mass/volume) 9.6 g/dL 13.3-17.7 Blood hematocrit (volume fraction) 29 % 40-54 Whole blood hemoglobin and hematocrit [facility] - 04/23/16 14:10 Venous blood [...] culture - 05/08/19 19:05 Bacterial urine culture [id number] NRG COLONY COUNT 40,000 CFU/ML NRG FTX;REPORTABLE [...] Status Pt. Type Provider Facility Loc./Unit Complaint [id number] 05/10/2019 16:29:00 020 16:45:00 DIS Inpatient FABIAN GOMES MD [facility] 4TH HYPOGLYCEMIC, ELEVATED TROP I, PHYSICAL DEBILITY [id number] 07/28/2018 08:15:00 23:59:59 CLS Outpatient GLADYS ORONA DO S [facility] RAD PAPILLEDEMA [id number] 07/23/2018 09:01:00 23:59:59 CLS Outpatient GLADYS ORONA DO S [facility] RAD DYSPNEA/WEIGHT LOSS [id number] 06/03/2018 12:16:00 23:59:59 CLS Outpatient JESSIE SY MD [facility] RAD HEMATURIA [id number] 09/01/2017 10:47:00 018 23:59:59 CLS Outpatient RIDDHI HO FACC, VELASQUEZ ROJO CC DS [facility] CARD CAD,CAROTID ARTERIAL DISEASE [id number] 08/05/2017 11:39:00 018 23:59:59 CLS Outpatient BARTOLO GUY APRN [facility] RAD HEMATURIA [id number] 05/07/2017 11:38:00 23:59:59 CLS Outpatient JESSIE SY MD [facility] RAD HEMATURIA [id number] 04/21/2016 14:30:00 017 09:35:00 DIS Inpatient GLADYS ORONA DO [facility] 4TH GI BLEED,WEAKNESS,ANEMIA,DEBILITY [id number] 04/19/2016 17:15:00 017 20:13:00 DIS Emergency DEBI VELEZ MD [facility] ER UNRESPONSIVE [id number] 04/11/2016 12:49:00 017 13:00:00 DIS Inpatient ADWOA GLADYS S [facility] 4TH SWB UTI,GENERAL IZED WEAKNESS,CHF [id number] 04/07/2016 15:13:00 017 12:49:00 DIS Inpatient ADWOA GLADYS S [facility] 4TH URINARY TRACT INFECTION,GENERALIZED WEAKNESS,CHF [id number] 03/25/2016 11:12:00 017 23:59:59 CLS Outpatient JESSIE SY MD [facility] RAD GROSS HEMATURIA [id number] 01/18/2015 08:36:00 015 23:59:59 CLS Outpatient CRIS MCKEON [facility] CARD DYSPNEA,HTN,CAD,CLAUDICATION [id number] 01/02/2015 09:14:00 015 23:59:59 CLS Outpatient CRIS MCKEON [facility] RAD DYSPNEA,HTN,CAD,CLAUDICATION [id number] 11/07/2013 12:22:00 014 23:59:59 CLS Outpatient GLADYS ORONA DO S [facility] RAD ACUTE GROSS HEM ATURIA [id number] 11/16/2012 08:41:00 013 23:59:59 CLS Outpatient GLADYS ORONA DO S [facility] RAD LUNG NODULE [id number] 05/13/2011 08:34:00 Document Registration [id number] 05/01/2011 07:43:00 Document Registration [id number] 02/14/2011 10:41:00 Document Registration [id number] 11/04/2010 08:12:00 Document Registration
== END 2019-05-13 16:45 | DRG 637 ==
LOC: EDUNIT# 18:49 → ER 18:50 → ICU 20:45 → 4TH 05-09 17:35 → OBSVTOIN 05-10 16:29
PROVIDERS: ADMIT Internal Medicine; ATTEND Internal Medicine
DX: E11.649 Type 2 diabetes mellitus with hypoglycemia without coma (principal); R09.02 Hypoxemia; I21.A1 Myocardial infarction type 2; G93.41 Metabolic encephalopathy; I11.0 Hypertensive heart disease with heart failure; I50.33 Acute on chronic diastolic (congestive) heart failure; I48.0 Paroxysmal atrial fibrillation; F03.90 Unspecified dementia, unspecified severity, without behavioral disturbance, psychotic disturbance, mood disturbance, and anxiety; I25.10 Atherosclerotic heart disease of native coronary artery without angina pectoris; I34.0 Nonrheumatic mitral (valve) insufficiency; R53.1 Weakness; N40.0 Benign prostatic hyperplasia without lower urinary tract symptoms; F17.210 Nicotine dependence, cigarettes, uncomplicated; J44.9 Chronic obstructive pulmonary disease, unspecified; E78.5 Hyperlipidemia, unspecified; K21.9 Gastro-esophageal reflux disease without esophagitis; M19.91 Primary osteoarthritis, unspecified site; I65.23 Occlusion and stenosis of bilateral carotid arteries; I45.10 Unspecified right bundle-branch block; I70.213 Atherosclerosis of native arteries of extremities with intermittent claudication, bilateral legs; R91.1 Solitary pulmonary nodule; Z86.73 Personal history of transient ischemic attack (TIA), and cerebral infarction without residual deficits; Z95.0 Presence of cardiac pacemaker; Z79.84 Long term (current) use of oral hypoglycemic drugs; Z95.820 Peripheral vascular angioplasty status with implants and grafts; Z91.81 History of falling; Z79.01 Long term (current) use of anticoagulants; Z23 Encounter for immunization
CPT/HCPCS: 36415; 36600; 70450; 71045; 80048; 80053; 80061; 80306; 80320; 81000; 82550; 82805; 82962; 83605; 83735; 83880; 84100; 84484; 85007; 85025; 85027; 85610; 85730; 87040; 87088; 87804; 93005; 93306; 94640; 94760; G0378

== ENCOUNTER 2019-07-08 14:33 | Emergency (ER) | payer MEDICARE ==
[~2019-07-08] VITALS: Ht 162.5 cm; Wt 62.7 kg
[~2019-07-08 14:33] MED LIST changes: +AMLO10TA7 PO; +ASPI-983 PO; +GLIM4TAB5 PO; +IPRA3AMP31 INH; +LISI10TA2 PO; +METF500T19 PO; +METO50TA7 PO; +MTP25TSR PO; +TMSL.4C PO
--- OUTSIDE RECORDS SUMMARY | 2019-07-08 14:49 | XMS REPORT | Encounter Summary ---
Author Author [facility] Organization [facility] Address Unknown Phone Unavailable Care Team Providers Care Network Strategist Name Role Phone Pricila Clemente MD PCP Reason for Visit * Reason Comments Eye Exam 2 month FUV; Drusen optic d isks OU hx poterior uveitis OU Vision Change Pt presents with "slight" w orsening va OS Spots and/or Floaters Pt denies any new flashes o r floaters OU Encounter Details Care Team Description Date Type Department Marylou Samayoa MD [address] [facility] [address] [place] [address] Posterior uveitis, bilateral 03/29/2019 Office Visit [facility] [address] [place] [address] Social History Date Tobacco Use [...] Marylou Samayoa MD - 03/29/2019 10:45 AM CYBERATHLETE Assessment and Plan: Problem Posterior Uveitis, Bilateral [...] 1.0% Tropicamide, 2.5% Phenylephrine @ 10:37 AM RATHLETE documented in this encounter Plan of Treatment Order Schedule Name Type Priority Associated Diag noses Ordered: 03/29/2019 [place] INTRAVITREAL NJX [place] Charge Routine Posterior uveitis, PHARMACOLOGIC AGT SPX bilateral Ordered: 03/29/2019 SCAN COMP OPHTHAL DIAG Ophthalmology Routine Posteri or uveitis, IMG, ANT SEG & MACULA bilateral documented as of this encounter Visit Diagnoses Diagnosis Posterior uveitis, bilateral Chorioretinitis, unspecified * Assessment & Plan Note - Marylou Samayoa MD - 03/29/2019 11:06 AM CYBERATHLETE Associated Problem(s): Posterior uveitis, bilateral OCT OD [...] pressure. The patient tolerated the procedure well. RATHLETE documented in this encounter Administered Medications Action Date Dose Rate Site Medication Order MAR Action 03/29/2019 11:19 AM CYBERATHLETE 0.7 mg Eye, Lef t dexamethasone(+) (OZURDEX) intravitreal Given implant 0.7 mg 0.7 mg, Left Eye, ONCE, 1 dose, 03/29/19 at 1215 documented in this encounter
--- OUTSIDE RECORDS SUMMARY | 2019-07-08 14:49 | XMS REPORT | Clinical Summary ---
Author Author [facility] Organization [facility] Address Unknown Phone Unavailable Care Team Providers Care Color Card Maker Name Role Phone Pricila Clemente MD PCP Source Comments Some departments are not documenting in the electronic medical record. If you d o not see the information that you expected, contact Release of Information in [facility] [employer] Information Management department at [phone] for further assistan ce in locating additional records.[facility] Allergies No Known Allergies Medications End Date [...] on fun dus autofluorescence no treatment indicated Social History Date Tobacco Use Types Packs/Day [...] WELLNESS 1940 VISIT DTAP/TDAP VACCINES (1 - 1959 Tdap) HEPATITIS C SCREENING 1959 PHYSICAL (COMPREHENSIVE) 1959 EXAM SHINGLES RECOMBINANT 1991 VACCINE (1 of 2) PNEUMONIA (PPSV23) 2006 VACCINE (1 of 2 - PCV13) INFLUENZA VACCINE 10/15/2019 Results Not on filefrom Last 3 Months Insurance Type Payer Benefit Subscriber ID Effective Phone Address Plan / Dates Group Medicare AETNA MEDICARE AETNA xxxxxxxxxxxx [id number] MEDICARE resent [place]PO ([place] [address] Advance Directives Patient Repair Servicer Explanation Type Date Recorded Advance Directive/DPOA
--- OUTSIDE RECORDS SUMMARY | 2019-07-08 14:49 | XMS REPORT | Encounter Summary ---
Author Author [facility] Organization [facility] Address Unknown Phone Unavailable Care Team Providers Care Hotel Sales Manager Name Role Phone Pricila Clemente MD [...] Specialty Diagnoses / Procedures Marylou Samayoa MD [address] [place] [address] Marylou Samayoa MD [address] [place] [address] Pending Review Ophthalmology Diagnoses 8 wk P rocedures OK INJECTION AFLIBERCEPT, 1 MG RETURN PATIENT Encounter Details Care Team Description Date Type Department Marylou Samayoa MD [address] [place] [address] [phone] Drusen of both optic discs (Primary Dx); Shruthi-Faith syndrome; Floppy eyelid syndrome of both eyes; Entropion of both lower eyelids; Trichiasis of eyelid of both eyes; Posterior uveitis, bilateral 01/24/2019 Office Visit [facility] [address] [place] [address] Social History Date Tobacco Use [...] Marylou Samayoa MD - 01/24/2019 10:45 AM GILL BOX FIXER Assessment and Plan: Problem 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 Contributes to the appearance of edema, confirmed on FAF [place]-Faith syndrome OCT OD no edema or SRF [...] or tears Attached, no breaks or tears BOX FIXER documented in this encounter Plan of Treatment Order Schedule Name Type Priority Associated Diag noses Ordered: 01/24/2019 SCAN COMP OPHTHAL DIAG Ophthalmology Routine Shruthi- Faith syndrome IMG, ANT SEG & MACULA Posterior uveitis, bilateral documented as of this encounter Visit Diagnoses Diagnosis [place]-Faith syndrome After-cataract, unspecified 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 I re commended he discuss sleep study with his PCP. BOX FIXER * Assessment & Plan Note - Marylou Samayoa MD - 01/24/2019 11:43 AM GILL BOX FIXER Associated Problem(s): Trichiasis of eyelid of both eyes Has had epilation in the last Patient waking up with symptoms of tearing and watering, with FB sensation Discussed findings, option for referral to oculoplastics At this time, he elects to monitor and will let me know if it starts to bother h im more. There is no corneal abrasion or erosion today. BOX FIXER * Assessment & Plan Note - Marylou Samayoa MD - 01/24/2019 11:41 AM GILL BOX FIXER Associated Problem(s): Shruthi-Faith syndrome OCT OD no edema or SRF [...] retu rn for worsening vision or distoriton. BOX FIXER documented in this encounter
--- NOTE | 2019-07-08 14:52 | ED Back Pain ---
General Chief Complaint: Back Problems Stated Complaint: LEG PAIN Source of Information: Patient Exam Limitations: No Limitations History of Present Illness Date Seen by Provider: Jul 08, 2019 Time Seen by Provider: 14:47 Initial Comments To ER with reports of bilateral leg pain. He was unable to get up today because of some pain in the medial anterior aspect of both thighs. This began a few days ago. He's had some long-standing low back pain but it has never radiated down either of his legs. He denies any trouble urinating or defecating. No loss of sensation of his genitals either. No falls or trauma. No fevers or chills. Lives at home. Pain is better with rest and worsens with activity. Location: Other (both thighs) Timing/Duration: Getting Worse Severity: Moderate Radiation: Upper Legs Method of Injury: Unknown Associated Symptoms: denies symptoms Allergies and Home Medications Allergies Coded Allergies: No Known Drug Allergies (Unverified , 06/02/10) Home Medications Amlodipine Besylate 10 Mg Tablet, 10 MG PO DAILY Prescribed by: GLADYS ORONA on 05/13/19 1019 Aspirin 81 Mg Tablet.dr, 81 MG PO DAILY, (Reported) Finasteride 5 Mg Tablet, 5 MG PO DAILY, (Reported) Ipratropium/Albuterol Sulfate 3 Ml Ampul.neb, 3 ML INH RTQID Prescribed by: GLADYS ORONA on 05/13/19 1026 Lisinopril 10 Mg Tablet, 10 MG PO DAILY Prescribed by: CRIS MCKEON on 05/12/19 0956 Metformin HCl 500 Mg Tab.er.24h, 500 MG PO BID, (Reported) Metoprolol Succinate 50 Mg Tab.er.24h, 50 MG PO HS Prescribed by: GLADYS ORONA on 05/13/19 1019 Prednisone 20 Mg Tab, 40 MG PO DAILY Prescribed by: ARIANNA SAUER on 07/08/19 1631 Simvastatin 40 Mg Tablet, 40 MG PO HS, (Reported) Tamsulosin HCl 0.4 Mg Cap, 0.8 MG PO DAILY Prescribed by: GLADYS ORONA on 05/13/19 1020 Tramadol HCl 50 Mg Tablet, 50 MG PO Q6H PRN for PAIN-MODERATE (5-7) Prescribed by: ARIANNA SAUER on 07/08/19 1632 Patient Home Medication List Home Medication List Reviewed: Yes Review of Systems Constitutional: see HPI EENTM: see HPI Respiratory: no symptoms reported Cardiovascular: no symptoms reported Genitourinary: no symptoms reported Musculoskeletal: see HPI Skin: no symptoms reported Psychiatric/Neurological: No Symptoms Reported Past Akggpzb-Etfifr-Iwgrhh Hx Patient Social History Alcohol Beverage of Choice: Beer Type Used: Cigarettes 2nd Hand Smoke Exposure: Yes Recent Foreign Travel: No Contact w/Someone Who Travel: No Recent Hopitalizations: Yes Immunizations Up To Date Tetanus Booster (TDap): Unknown Seasonal Allergies Seasonal Allergies: No Past Medical History Surgeries: Yes Pacemaker Respiratory: Yes Pneumonia, COPD Currently Using CPAP: No Currently Using BIPAP: No Cardiac: Yes (PACEMAKER, congestive heart failure) Atrial Fibrillation, Coronary Artery Disease, High Cholesterol, Hypertension Neurological: No Reproductive Disorders: No Genitourinary: Yes Prostate Problems, UTI-Chronic Gastrointestinal: No Gastroesophageal Reflux Musculoskeletal: Yes Degenerate Disk Disease, Arthritis, Back Injury Endocrine: Yes Diabetes, Non-Insulin dep HEENT: Yes Cataract Hearing Impairment: Hard of Hearing Cancer: No Psychosocial: No Integumentary: No Blood Disorders: Yes (anticoagulated for A. fib) Family Medical History Cancer, Hypertension, Stroke Physical Exam Vital Signs Vital Signs - First Documented 07/08/19 14:35 Temp 36.3 Pulse 62 Resp 18 B/P (MAP) 128/59 (82) Pulse Ox 100 O2 Delivery Room Air Capillary Refill : Height, Weight, BMI Height: 5'4.00" Weight: 171lbs. 0.0oz. [id number]; 23.81 BMI Method:Stated General Appearance: No Apparent Distress, WD/WN, Chronically ill, Other (Rather unkempt, sweatpants covered with dirt and animal hair, inside of his shoes covered with dirt. Left pointer finger nail sustained brown likely from cigarette smoking.) Extremity: Normal Capillary Refill, Normal Inspection, Other (both feet are warm, without erythema or ecchymosis or cyanosis. I am not able to palpate a dorsalis pedis pulse on either side, however, I am able to Doppler blood flow over both dorsalis pedis arteries. Full range of motion active and passive at the hips, does not reproduce the pain. Thighs, areas of pain, are normal in appearance without erythema ecchymosis or wound. Nontender to palpation.) Neurologic/Psychiatric: Alert, Oriented x3 Progress/Results/Core Measures Results/Orders Lab Results Laboratory Tests Test 07/08/19 14:41 07/08/19 16:08 Range/Units White Blood Count 8.4 4.3-11.0 10^3/uL Red Blood Count 4.26 L 4.35-5.85 10^6/uL Hemoglobin 12.7 L 13.3-17.7 G/DL Hematocrit 38 L 40-54 % Mean Corpuscular Volume 89 80-99 FL Mean Corpuscular Hemoglobin 30 25-34 PG Mean Corpuscular Hemoglobin Concent 33 32-36 G/DL Red Cell Distribution Width 16.9 H 10.0-14.5 % Platelet Count 270 130-400 10^3/uL Mean Platelet Volume 10.6 H 7.4-10.4 FL Neutrophils (%) (Auto) 78 H 42-75 % Lymphocytes (%) (Auto) 12 12-44 % Monocytes (%) (Auto) 10 0-12 % Eosinophils (%) (Auto) 1 0-10 % Basophils (%) (Auto) 0 0-10 % Neutrophils # (Auto) 6.6 1.8-7.8 X 10^3 Lymphocytes # (Auto) 1.0 1.0-4.0 X 10^3 Monocytes # (Auto) 0.8 0.0-1.0 X 10^3 Eosinophils # (Auto) 0.0 0.0-0.3 10^3/uL Basophils # (Auto) 0.0 0.0-0.1 10^3/uL Sodium Level 138 135-145 MMOL/L Potassium Level 4.1 3.6-5.0 MMOL/L Chloride Level 107 98-107 MMOL/L Carbon Dioxide Level 19 L 21-32 MMOL/L Anion Gap 12 5-14 MMOL/L Blood Urea Nitrogen 25 H 7-18 MG/DL Creatinine 1.09 0.60-1.30 MG/DL Estimat Glomerular Filtration Rate > 60 BUN/Creatinine Ratio 23 Glucose Level 136 H 70-105 MG/DL Calcium Level 9.0 8.5-10.1 MG/DL Corrected Calcium 9.1 8.5-10.1 MG/DL Total Bilirubin 0.8 0.1-1.0 MG/DL Aspartate Amino Transf (AST/SGOT) 15 5-34 U/L Alanine Aminotransferase (ALT/SGPT) 14 0-55 U/L Alkaline Phosphatase 56 40-136 U/L Total Protein 7.1 6.4-8.2 GM/DL Albumin 3.9 3.2-4.5 GM/DL Urine Color YELLOW Urine Clarity SL CLOUDY Urine pH 6.0 5-9 Urine Specific [place] 1.025 H 1.016-1.022 Urine Protein 2+ H NEGATIVE Urine Glucose (UA) NEGATIVE NEGATIVE Urine Ketones TRACE H NEGATIVE Urine Nitrite NEGATIVE NEGATIVE Urine Bilirubin NEGATIVE NEGATIVE Urine Urobilinogen 0.2 < = 1.0 MG/DL Urine Leukocyte Esterase 1+ H NEGATIVE Urine RBC (Auto) 3+ H NEGATIVE Urine RBC 10-25 H /HPF Urine WBC 10-25 H /HPF Urine Crystals NONE /LPF Urine Bacteria MODERATE H /HPF Urine Casts NONE /LPF Urine Mucus SMALL H /LPF Urine Culture Indicated YES My Orders Orders - ARIANNA SAUER APRN Cbc With Automated Diff (07/08/19 14:46) Comprehensive Metabolic Panel (07/08/19 14:46) Ed Iv/Invasive Line Start (07/08/19 14:46) Ct Lumbar Spine Wo (07/08/19 14:46) Ua Culture If Indicated (07/08/19 16:09) Urine Culture (07/08/19 16:08) Vital Signs/I&O 07/08/19 14:35 Temp 36.3 Pulse 62 Resp 18 B/P (MAP) 128/59 (82) Pulse Ox 100 O2 Delivery Room Air Diagnostic Imaging Diagonstic Imaging: CT Comments NAME: KIRSTIN LEE [facility] REC#: [id number] PT STATUS: REG ER : 1940 PHYSICIAN: ARIANNA SAUER APRN ADMIT DATE: 07/08/19/ER Signed Date of Exam:07/08/19 CT LUMBAR SPINE WO PROCEDURE: CT lumbar spine without contrast. TECHNIQUE: Multiple contiguous axial images were obtained through the lumbar spine without the use of intravenous contrast. Sagittal and coronal reformations were then performed. Auto Exposure Controls were utilized during the CT exam to meet ALARA standards for radiation dose reduction. INDICATION: Difficulty walking x2 days There are is a grade 1 spondylolisthesis at L4-L5. There is an old compression fracture involving the anterior aspect of the superior endplate of L1. This was present on previous plain film of the spine dated 08/05/2017. There are no acute compression fractures. There is vacuum disc phenomena at T12-L1, L2-L3, L4-L5 and L5-S1. Posterior elements appear to be intact although there are moderate degenerative changes of the facet joints at L3-L4, L4-L5 and L5-S1. There is calcific atherosclerosis of the aorta. IMPRESSION: Severe degenerative disc change at T12-L1, L4-L5 and L5-S1 with grade 1 spinal listhesis at L4-L5. There is moderate facet arthropathy at L3-L4, L4-L5 and L5-S1. There is an old compression fracture of the superior endplate of L1. There is no acute abnormality seen. There is bony foraminal narrowing on the left at L4-L5 and L5-S1. Dictated by: Dictated on workstation # [id number] Dict: 07/08/19 1537 Trans: 07/08/19 1542 [id number] Interpreted by: DEBI AMBROSE MD Electronically signed by: DEBI AMBROSE MD 07/08/19 1542 Departure Communication (Admissions) Differential would include intermittent claudication versus neuropathic pain. We'll obtain CT lumbar spine. 1618-lumbar spine CT does show advanced degenerative changes which would support a diagnosis of lumbar radiculopathy. Upon further discussion with him he states that his pain is nearly and stent as soon as he stands up and takes his first step. This description would be more supportive of lumbar radiculopathy than claudication symptoms. Impression Primary Impression: Lumbar radiculopathy Disposition: 01 HOME, SELF-CARE Condition: Stable Departure-Patient Inst. Decision time for Depature: 16:19 Referrals: GLADYS ORONA DO (PCP/Family) Primary Care Physician Patient Instructions: Radiculopathy Add. Discharge Instructions: 1. Return to ER for any concerns 2. Medication as directed 3. Follow-up with Dr. ORONA. Call Thursday to make an appointment to be seen for follow-up. The pain medication can be constipating so it would be a good idea to take a stool softener such as Colace as well. All discharge instructions reviewed with patient and/or family. Voiced understanding. Scripts Cefuroxime Axetil (Cefuroxime) 250 Mg Tablet 250 MG PO BID, #14 TAB Prov: ARIANNA SAUER APRN 07/08/19 Tramadol HCl (Ultram) 50 Mg Tablet 50 MG PO Q6H PRN for PAIN-MODERATE (5-7), #14 TAB Prov: ARIANNA SAUER APRN 07/08/19 Prednisone (Prednisone) 20 Mg Tab 40 MG PO DAILY, #6 TAB 0 Refills Prov: ARIANNA SAUER APRN 07/08/19 ARIANNA SAUER APRN Jul 08, 2019 14:52
--- OUTSIDE RECORDS SUMMARY | 2019-07-08 14:55 | XMS REPORT | Continuity of Care Document ---
Author Organization Unknown Address Unknown Phone Unavailable Allergies Active Description Code Type Severity Reaction Onset Reported/Identified Relationship to Patient Clinical Status Yes No Known Drug Allergies [id number] Drug Allergy Unknown N/A 06/02/2010 Medications There is no data. Problems Date Dx Coded Attending Type Code Diagnosis Diagnosed By 01/24/2015 BAIMA, CRIS L CUPOLA LINER HELPER Ot F17.200 01/24/2015 BAIMA, CRIS L CUPOLA LINER HELPER Ot I 10 01/24/2015 BAIMA, CRIS L CUPOLA LINER HELPER Ot I25.10 01/24/2015 BAIMA, CRIS L CUPOLA LINER HELPER Ot I45.10 01/24/2015 BAIMA, CRIS L CUPOLA LINER HELPER Ot I73.9 01/24/2015 BAIMA, CRIS L CUPOLA LINER HELPER Ot I77.1 01/24/2015 BAIMA, CRIS L CUPOLA LINER HELPER Ot I77.9 01/24/2015 BAIMA, CRIS L CUPOLA LINER HELPER Ot R06.09 01/24/2015 BAIMA, CRIS L CUPOLA LINER HELPER Ot R78.5 02/12/2015 BAIMA, CRIS L CUPOLA LINER HELPER Ot E78.5 02/12/2015 BAIMA, CRIS L CUPOLA LINER HELPER Ot F17.200 02/12/2015 BAIMA, CRIS L CUPOLA LINER HELPER Ot I 10 02/12/2015 BAIMA, CRIS L CUPOLA LINER HELPER Ot I25.10 02/12/2015 BAIMA, CRIS L CUPOLA LINER HELPER Ot I45.10 02/12/2015 BAIMA, CRIS L CUPOLA LINER HELPER Ot I73.9 02/12/2015 BAIMA, CRIS L CUPOLA LINER HELPER Ot I77.1 02/12/2015 BAIMA, CRIS L CUPOLA LINER HELPER Ot I77.9 02/12/2015 BAIMA, CRIS L CUPOLA LINER HELPER Ot R06.09 03/26/2016 YOSSI HO, JESSIE Carter [...] 04/07/2016 Ot 414.01 COR ONARY ATHEROSCLEROSIS OF [place] CORON 04/07/2016 Ot 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 W O CEREBRAL IN 04/07/2016 Ot 272.4 HYPE RLIPIDEMIA NEC/NOS 04/07/2016 Ot 414.01 COR ONARY ATHEROSCLEROSIS OF [place] CORON 04/07/2016 Ot V58.69 OTH MED,LT,CURRENT USE 04/07/2016 Ot V76.44 SCR EEN MAL NEOP- PROSTATE 04/07/2016 GLADYS ORONA DO Ot 793.11 SOLITARY PULMONARY NODULE 04/07/2016 GLADYS ORONA DO Ot V81.5 SCREEN FOR NEPHROPATHY 04/07/2016 GLADYS ORONA DO S Ot 599.71 GROSS HEMATURIA 04/07/2016 CRIS MCKEON CUPOLA LINER HELPER Ot F17.200 NICOTINE DEPENDENCE, UNSPECIFIED, UNCOMP 04/07/2016 CRIS MCKEON CUPOLA LINER HELPER Ot I 10 ESSENTIAL (PRIMARY) HYPERTENSION 04/07/2016 CRIS MCKEON CUPOLA LINER HELPER Ot I25.10 ATHSCL HEART DISEASE OF [place] CORONARY 04/07/2016 CRIS MCKEON CUPOLA LINER HELPER Ot I45.10 UNSPECIFIED RIGHT BUNDLE-BRANCH BLOCK 04/07/2016 CRIS MCKEON CUPOLA LINER HELPER Ot I73.9 PERIPHERAL VASCULAR DISEASE, UNSPECIFIED 04/07/2016 CRIS MCKEON CUPOLA LINER HELPER Ot I77.1 STRICTURE OF ARTERY 04/07/2016 CRIS MCKEON L CUPOLA LINER HELPER Ot I77.9 DISORDER OF ARTERIES AND ARTERIOLES, UNS 04/07/2016 CRIS MCKEON L CUPOLA LINER HELPER Ot R06.09 OTHER FORMS OF DYSPNEA 04/07/2016 FLETCHERCRIS FREEMAN L CUPOLA LINER HELPER Ot R78.5 FINDING OF OTHER PSYCHOTROPIC DRUG IN BL 04/07/2016 LINDA CRIS L CUPOLA LINER HELPER Ot E78.5 HYPERLIPIDEMIA, UNSPECIFIED 04/07/2016 FLETCHERPETE CRIS L CUPOLA LINER HELPER Ot F17.200 NICOTINE DEPENDENCE, UNSPECIFIED, UNCOMP 04/07/2016 FLETCHERPETE CRIS L CUPOLA LINER HELPER Ot I 10 ESSENTIAL (PRIMARY) HYPERTENSION 04/07/2016 FLETCHERPETE CRIS L CUPOLA LINER HELPER Ot I25.10 ATHSCL HEART DISEASE OF [place] CORONARY 04/07/2016 FLETCHERPETE CRIS L CUPOLA LINER HELPER Ot I45.10 UNSPECIFIED RIGHT BUNDLE-BRANCH BLOCK 04/07/2016 FLETCHERPETE CRIS L CUPOLA LINER HELPER Ot I73.9 PERIPHERAL VASCULAR DISEASE, UNSPECIFIED 04/07/2016 LINDA CRIS Jack CUPOLA LINER HELPER Ot I77.1 STRICTURE OF ARTERY 04/07/2016 CRIS MCKEON CUPOLA LINER HELPER Ot I77.9 DISORDER OF ARTERIES AND ARTERIOLES, UNS 04/07/2016 CRIS MCKEON CUPOLA LINER HELPER Ot R06.09 OTHER FORMS OF DYSPNEA 04/07/2016 [...] S Ot I25.10 ATHSCL HEART DISEASE OF [place] CORONARY 04/11/2016 ALYCENDSARAHI BURGOS DOQUELINE S Ot I48.0 PAROXYSMAL ATRIAL FIBRILLATION 04/11/2016 ALYCENDSARAHI BURGOS DOQUELINE S Ot I50.41 ACUTE COMBINED SYSTOLIC AND DIASTOLIC (C 04/11/2016 ALYCENDSARAHI BURGOS DOQUELINE S Ot I70.213 ATHSCL [place] ARTERIES OF EXTRM W INTRMT 04/11/2016 ALYCENDSARAHI [...] S Ot I25.10 ATHSCL HEART DISEASE OF [place] CORONARY 04/16/2016 ALYCENDSARAHI BURGOS DOQUELINE S Ot I48.0 PAROXYSMAL ATRIAL FIBRILLATION 04/16/2016 ALYCENDAUBREY DO GLADYS S Ot I50.41 ACUTE COMBINED SYSTOLIC AND DIASTOLIC (C 04/16/2016 ALYCENDSARAHI BURGOS DOQUELINE S Ot I70.213 ATHSCL [place] ARTERIES OF EXTRM W INTRMT 04/16/2016 ALYCENDSARAHI [...] S Ot I25.10 ATHSCL HEART DISEASE OF [place] CORONARY 04/16/2016 KAREN ORONA DOLINE S Ot I48.0 PAROXYSMAL ATRIAL FIBRILLATION 04/16/2016 KAREN ORONA DOLINE S Ot I50.41 ACUTE COMBINED SYSTOLIC AND DIASTOLIC (C 04/16/2016 ALYCENDER DO GLADYS S Ot I70.213 ATHSCL [place] ARTERIES OF EXTRM W INTRMT 04/16/2016 KAREN [...] S Ot I25.10 ATHSCL HEART DISEASE OF [place] CORONARY 04/16/2016 KAREN ORONA DOLINE S Ot I48.0 PAROXYSMAL ATRIAL FIBRILLATION 04/16/2016 KAREN ORONA DOLINE S Ot I50.41 ACUTE COMBINED SYSTOLIC AND DIASTOLIC (C 04/16/2016 KAREN ORONA DOLINE S Ot I70.213 ATHSCL [place] ARTERIES OF EXTRM W INTRMT 04/16/2016 KAREN [...] VASCULAR ANGIOPLASTY STATUS W 04/17/2016 FLETCHERCRIS FREEMAN CUPOLA LINER HELPER Ot E78.5 HYPERLIPIDEMIA, UNSPECIFIED 04/17/2016 FLETCHERCRIS FREEMAN CUPOLA LINER HELPER Ot F17.200 NICOTINE DEPENDENCE, UNSPECIFIED, UNCOMP 04/17/2016 FLETCHERCRIS FREEMAN CUPOLA LINER HELPER Ot I 10 ESSENTIAL (PRIMARY) HYPERTENSION 04/17/2016 LINDA CRIS Jack CUPOLA LINER HELPER Ot I25.10 ATHSCL HEART DISEASE OF [place] CORONARY 04/17/2016 LINDA CRIS L CUPOLA LINER HELPER Ot I45.10 UNSPECIFIED RIGHT BUNDLE-BRANCH BLOCK 04/17/2016 LINDA CRIS Guero CUPOLA LINER HELPER Ot I73.9 PERIPHERAL VASCULAR DISEASE, UNSPECIFIED 04/17/2016 LINDA CRIS Guero CUPOLA LINER HELPER Ot I77.1 STRICTURE OF ARTERY 04/17/2016 CRIS MCKEON CUPOLA LINER HELPER Ot I77.9 DISORDER OF ARTERIES AND ARTERIOLES, UNS 04/17/2016 LINDA CRIS L CUPOLA LINER HELPER Ot R06.09 OTHER FORMS OF DYSPNEA 04/17/2016 [...] SPECIF 04/19/2016 DEBI VELEZ MD Ot Z79.82 ALF (CURRENT) USE OF ASPIRIN 04/19/2016 DEBI VELEZ MD Ot Z79.84 ALF (CURRENT) USE OF ORAL HYPOGLYC 04/19/2016 DEBI VELEZ MD, Ot Z79.899 OTHER CAGE TENDER (CURRENT) DRUG THERAPY 04/19/2016 DEBI VELEZ MD Ot Z95.0 PRESENCE OF CARDIAC PACEMAKER 04/20/2016 BEAVER MD, DEBI D Ot E11.649 TYPE 2 DIABETES MELLITUS WITH HYPOGLYCEM 04/20/2016 DEBI VELEZ MD Ot I48.2 CHRONIC ATRIAL FIBRILLATION 04/20/2016 DEBI VELEZ MD, Ot N39.0 URINARY TRACT INFECTION, SITE NOT SPECIF 04/20/2016 DEBI VELEZ MD, Ot Z79.82 CAGE TENDER (CURRENT) USE OF ASPIRIN 04/20/2016 DEBI VELEZ MD, Ot Z79.84 ALF (CURRENT) USE OF ORAL HYPOGLYC 04/20/2016 DEBI VELEZ MD, Ot Z79.899 OTHER ALF (CURRENT) DRUG THERAPY 04/20/2016 DEBI VELEZ MD, [...] S Ot I25.10 ATHSCL HEART DISEASE OF [place] CORONARY 04/23/2016 SARAHI ORONA DOQUELINE S Ot [...] 04/23/2016 KAREN ORONA DOLINE S Ot Z79.01 CAGE TENDER (CURRENT) USE OF ANTICOAGULANT 04/23/2016 KAREN ORONA [...] S Ot I25.10 ATHSCL HEART DISEASE OF [place] CORONARY 04/23/2016 KAREN ORONA DOLINE S Ot [...] 04/23/2016 KAREN ORONA DOLINE S Ot Z79.01 ALF (CURRENT) USE OF ANTICOAGULANT 04/23/2016 KAREN ORONA [...] S Ot I25.10 ATHSCL HEART DISEASE OF [place] CORONARY 04/28/2016 KAREN ORONA DOLINE S Ot [...] Ot R31.9 HEMATURIA, UNSPECIFIED 04/28/2016 ADWOA WARE GLDAYS S Ot R33.8 OTHER RETENTION OF URINE 04/28/2016 KAREN ORONA DOLINE S Ot R35.0 FREQUENCY OF MICTURITION 04/28/2016 KAREN ORONA DOLINE S Ot R39.11 HESITANCY OF MICTURITION 04/28/2016 SARAHI ORONA DOQUELINE S Ot Z79.01 CAGE TENDER (CURRENT) USE OF ANTICOAGULANT 04/28/2016 KAREN ORONA [...] S Ot I25.10 ATHSCL HEART DISEASE OF [place] CORONARY 04/28/2016 ADWOA WARE GLADYS S Ot [...] 04/28/2016 GLADYS ORONA DO S Ot Z79.01 ALF (CURRENT) USE OF ANTICOAGULANT 04/28/2016 KAREN ORONA [...] S Ot I25.10 ATHSCL HEART DISEASE OF [place] CORONARY 04/29/2016 KAREN ORONA DOLINE S Ot [...] MICTURITION 04/29/2016 GLADYS ORONA DO Ot Z79.01 CAGE TENDER (CURRENT) USE OF ANTICOAGULANT 04/29/2016 GLADYS ORONA [...] DO Ot I25.10 ATHSCL HEART DISEASE OF [place] CORONARY 04/30/2016 GLADYS ORONA DO Ot I48.2 [...] MICTURITION 04/30/2016 GLADYS ORONA DO Ot Z79.01 CAGE TENDER (CURRENT) USE OF ANTICOAGULANT 04/30/2016 GLADYS ORONA DO Ot Z91.81 HISTORY OF FALLING 04/30/2016 GLADYS ORONA DO Ot Z95.0 PRESENCE OF CARDIAC PACEMAKER 05/19/2016 CRIS MCKEON CUPOLA LINER HELPER Ot E78.5 HYPERLIPIDEMIA, UNSPECIFIED 05/19/2016 CRIS MCKEON L CUPOLA LINER HELPER Ot F17.200 NICOTINE DEPENDENCE, UNSPECIFIED, UNCOMP 05/19/2016 BAIPETE CRIS L CUPOLA LINER HELPER Ot I 10 ESSENTIAL (PRIMARY) HYPERTENSION 05/19/2016 LINDA CRIS L CUPOLA LINER HELPER Ot I25.10 ATHSCL HEART DISEASE OF [place] CORONARY 05/19/2016 CRIS MCKEON L CUPOLA LINER HELPER Ot I45.10 UNSPECIFIED RIGHT BUNDLE-BRANCH BLOCK 05/19/2016 MANPREET MCKEONHER L CUPOLA LINER HELPER Ot I73.9 PERIPHERAL VASCULAR DISEASE, UNSPECIFIED 05/19/2016 MANPREET MCKEONHER L CUPOLA LINER HELPER Ot I77.1 STRICTURE OF ARTERY 05/19/2016 LINDA CRIS L CUPOLA LINER HELPER Ot I77.9 DISORDER OF ARTERIES AND ARTERIOLES, UNS 05/19/2016 MANPREET MCKEONHER L CUPOLA LINER HELPER Ot R06.09 OTHER FORMS OF DYSPNEA 05/19/2016 YOSSI HO, JESSIE Carter Ot J90 PLEURAL EFFUSION, NOT ELSEWHERE CLASSIFI 05/19/2016 JESSIE SY MD Ot 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, PART UNSP, W/O PERF 05/19/2016 JESSIE SY MD Ot R31.0 GROSS HEMATURIA 07/11/2016 CRIS MCKEON CUPOLA LINER HELPER Ot E78.5 HYPERLIPIDEMIA, UNSPECIFIED 07/11/2016 CRIS MCKEON CUPOLA LINER HELPER Ot F17.200 NICOTINE DEPENDENCE, UNSPECIFIED, UNCOMP 07/11/2016 CRIS MCKEON L CUPOLA LINER HELPER Ot I 10 ESSENTIAL (PRIMARY) HYPERTENSION 07/11/2016 CRIS MCKEON L CUPOLA LINER HELPER Ot I25.10 ATHSCL HEART DISEASE OF [place] CORONARY 07/11/2016 CRIS MCKEON CUPOLA LINER HELPER Ot I45.10 UNSPECIFIED RIGHT BUNDLE-BRANCH BLOCK 07/11/2016 CRIS MCKEON CUPOLA LINER HELPER Ot I73.9 PERIPHERAL VASCULAR DISEASE, UNSPECIFIED 07/11/2016 CRIS MCKEON L CUPOLA LINER HELPER Ot I77.1 STRICTURE OF ARTERY 07/11/2016 CRIS MCKEON CUPOLA LINER HELPER Ot I77.9 DISORDER OF ARTERIES AND ARTERIOLES, UNS 07/11/2016 CRIS MCKEON CUPOLA LINER HELPER Ot R06.09 OTHER FORMS OF DYSPNEA 11/14/2016 DEBI VELEZ MD Ot E11.649 TYPE 2 DIABETES MELLITUS WITH HYPOGLYCEM 11/14/2016 DEBI VELEZ MD Ot I48.2 CHRONIC ATRIAL FIBRILLATION 11/14/2016 DEBI VELEZ MD Ot N39.0 URINARY TRACT INFECTION, SITE NOT SPECIF 11/14/2016 DEBI VELEZ MD Ot Z79.82 ALF (CURRENT) USE OF ASPIRIN 11/14/2016 DEBI VELEZ MD Ot Z79.84 CAGE TENDER (CURRENT) USE OF ORAL HYPOGLYC 11/14/2016 DEBI VELEZ MD Ot Z79.899 OTHER CAGE TENDER (CURRENT) DRUG THERAPY 11/14/2016 DEBI VELEZ MD Ot Z95.0 PRESENCE OF CARDIAC PACEMAKER 05/05/2017 GLADYS ORONA DO S Ot 793.11 SOLITARY PULMONARY NODULE 05/05/2017 GLADYS ORONA DO S Ot V81.5 SCREEN FOR NEPHROPATHY 05/05/2017 GLADYS ORONA DO S Ot 599.71 GROSS HEMATURIA 05/05/2017 CRIS MCKEON CUPOLA LINER HELPER Ot F17.200 NICOTINE DEPENDENCE, UNSPECIFIED, UNCOMP 05/05/2017 CRIS MCKEON CUPOLA LINER HELPER Ot I 10 ESSENTIAL (PRIMARY) HYPERTENSION 05/05/2017 CRIS MCKEON CUPOLA LINER HELPER Ot I25.10 ATHSCL HEART DISEASE OF [place] CORONARY 05/05/2017 CRIS MCKEON L CUPOLA LINER HELPER Ot I45.10 UNSPECIFIED RIGHT BUNDLE-BRANCH BLOCK 05/05/2017 CRIS MCKEON L CUPOLA LINER HELPER Ot I73.9 PERIPHERAL VASCULAR DISEASE, UNSPECIFIED 05/05/2017 CRIS MCKEON L CUPOLA LINER HELPER Ot I77.1 STRICTURE OF ARTERY 05/05/2017 CRIS MCKEON L CUPOLA LINER HELPER Ot I77.9 DISORDER OF ARTERIES AND ARTERIOLES, UNS 05/05/2017 CRIS MCKEON L CUPOLA LINER HELPER Ot R06.09 OTHER FORMS OF DYSPNEA 05/05/2017 CRIS MCKEON L CUPOLA LINER HELPER Ot R78.5 FINDING OF OTHER PSYCHOTROPIC DRUG IN BL 05/05/2017 LINDA CRIS L CUPOLA LINER HELPER Ot E78.5 HYPERLIPIDEMIA, UNSPECIFIED 05/05/2017 LINDA CRIS L CUPOLA LINER HELPER Ot F17.200 NICOTINE DEPENDENCE, UNSPECIFIED, UNCOMP 05/05/2017 CRIS MCKEON L CUPOLA LINER HELPER Ot I 10 ESSENTIAL (PRIMARY) HYPERTENSION 05/05/2017 FLETCHERCRIS FREEMAN L CUPOLA LINER HELPER Ot I25.10 ATHSCL HEART DISEASE OF [place] CORONARY 05/05/2017 CRIS MCKEON L CUPOLA LINER HELPER Ot I45.10 UNSPECIFIED RIGHT BUNDLE-BRANCH BLOCK 05/05/2017 CRIS MCKEON L CUPOLA LINER HELPER Ot I73.9 PERIPHERAL VASCULAR DISEASE, UNSPECIFIED 05/05/2017 CRIS MCKEON L CUPOLA LINER HELPER Ot I77.1 STRICTURE OF ARTERY 05/05/2017 CRIS MCKEON L CUPOLA LINER HELPER Ot I77.9 DISORDER OF ARTERIES AND ARTERIOLES, UNS 05/05/2017 FLETCHERCRIS FREEMAN L CUPOLA LINER HELPER Ot R06.09 OTHER FORMS OF DYSPNEA 05/05/2017 [...] 599.71 GROSS HEMATURIA 05/05/2017 BAICRIS FREEMAN L CUPOLA LINER HELPER Ot F17.200 NICOTINE DEPENDENCE, UNSPECIFIED, UNCOMP 05/05/2017 BAIMA, CRIS L CUPOLA LINER HELPER Ot I 10 ESSENTIAL (PRIMARY) HYPERTENSION 05/05/2017 BAIMA, CRIS L CUPOLA LINER HELPER Ot I25.10 ATHSCL HEART DISEASE OF [place] CORONARY 05/05/2017 BAIMA, CRIS L CUPOLA LINER HELPER Ot I45.10 UNSPECIFIED RIGHT BUNDLE-BRANCH BLOCK 05/05/2017 BAIMA, CRIS L CUPOLA LINER HELPER Ot I73.9 PERIPHERAL VASCULAR DISEASE, UNSPECIFIED 05/05/2017 BAIMA, CRIS L CUPOLA LINER HELPER Ot I77.1 STRICTURE OF ARTERY 05/05/2017 BAIMA, CRIS L CUPOLA LINER HELPER Ot I77.9 DISORDER OF ARTERIES AND ARTERIOLES, UNS 05/05/2017 BAIMA, CRIS L CUPOLA LINER HELPER Ot R06.09 OTHER FORMS OF DYSPNEA 05/05/2017 LINDA CRIS L CUPOLA LINER HELPER Ot R78.5 FINDING OF OTHER PSYCHOTROPIC DRUG IN BL 05/05/2017 FLETCHERPETE CRIS L CUPOLA LINER HELPER Ot E78.5 HYPERLIPIDEMIA, UNSPECIFIED 05/05/2017 BAIMA, CRIS L CUPOLA LINER HELPER Ot F17.200 NICOTINE DEPENDENCE, UNSPECIFIED, UNCOMP 05/05/2017 BAIMA, CRIS L CUPOLA LINER HELPER Ot I 10 ESSENTIAL (PRIMARY) HYPERTENSION 05/05/2017 BAIPETE, CRIS L CUPOLA LINER HELPER Ot I25.10 ATHSCL HEART DISEASE OF [place] CORONARY 05/05/2017 LINDA CRIS L CUPOLA LINER HELPER Ot I45.10 UNSPECIFIED RIGHT BUNDLE-BRANCH BLOCK 05/05/2017 BAIMA, CRIS L CUPOLA LINER HELPER Ot I73.9 PERIPHERAL VASCULAR DISEASE, UNSPECIFIED 05/05/2017 BAIMA, CRIS L CUPOLA LINER HELPER Ot I77.1 STRICTURE OF ARTERY 05/05/2017 BAIMA, CRIS L CUPOLA LINER HELPER Ot I77.9 DISORDER OF ARTERIES AND ARTERIOLES, UNS 05/05/2017 BAIMA, CRIS L CUPOLA LINER HELPER Ot R06.09 OTHER FORMS OF DYSPNEA 05/05/2017 [...] Ot 599.71 GROSS HEMATURIA 08/03/2017 CRIS MCKEON CUPOLA LINER HELPER Ot F17.200 NICOTINE DEPENDENCE, UNSPECIFIED, UNCOMP 08/03/2017 CRIS MCKEON CUPOLA LINER HELPER Ot I 10 ESSENTIAL (PRIMARY) HYPERTENSION 08/03/2017 CRIS MCKEON CUPOLA LINER HELPER Ot I25.10 ATHSCL HEART DISEASE OF [place] CORONARY 08/03/2017 CRIS MCKEON CUPOLA LINER HELPER Ot I45.10 UNSPECIFIED RIGHT BUNDLE-BRANCH BLOCK 08/03/2017 CRIS MKCEON CUPOLA LINER HELPER Ot I73.9 PERIPHERAL VASCULAR DISEASE, UNSPECIFIED 08/03/2017 CRIS MCKEON CUPOLA LINER HELPER Ot I77.1 STRICTURE OF ARTERY 08/03/2017 CRIS MCKEON CUPOLA LINER HELPER Ot I77.9 DISORDER OF ARTERIES AND ARTERIOLES, UNS 08/03/2017 CRIS MCKEON CUPOLA LINER HELPER Ot R06.09 OTHER FORMS OF DYSPNEA 08/03/2017 CRIS MCKEON CUPOLA LINER HELPER Ot R78.5 FINDING OF OTHER PSYCHOTROPIC DRUG IN BL 08/03/2017 CRIS MCKEON CUPOLA LINER HELPER Ot E78.5 HYPERLIPIDEMIA, UNSPECIFIED 08/03/2017 CRIS MCKEON CUPOLA LINER HELPER Ot F17.200 NICOTINE DEPENDENCE, UNSPECIFIED, UNCOMP 08/03/2017 CRIS MCKEON L CUPOLA LINER HELPER Ot I 10 ESSENTIAL (PRIMARY) HYPERTENSION 08/03/2017 CRIS MCKEON CUPOLA LINER HELPER Ot I25.10 ATHSCL HEART DISEASE OF [place] CORONARY 08/03/2017 CRIS MCKEON CUPOLA LINER HELPER Ot I45.10 UNSPECIFIED RIGHT BUNDLE-BRANCH BLOCK 08/03/2017 CRIS MCKEON CUPOLA LINER HELPER Ot I73.9 PERIPHERAL VASCULAR DISEASE, UNSPECIFIED 08/03/2017 CRIS MCKEON CUPOLA LINER HELPER Ot I77.1 STRICTURE OF ARTERY 08/03/2017 CRIS MCKEON L CUPOLA LINER HELPER Ot I77.9 DISORDER OF ARTERIES AND ARTERIOLES, UNS 08/03/2017 CRIS MCKEON CUPOLA LINER HELPER Ot R06.09 OTHER FORMS OF DYSPNEA 08/03/2017 [...] CYST OF KIDNEY, ACQUIRED 08/11/2017 BARTOLO GUY STATION INSTALLER AND REPAIRER Ot M47.816 SPONDYLOSIS W/O MYELOPATHY OR RADICULOPA 08/11/2017 BARTOLO GUY STATION INSTALLER AND REPAIRER Ot N28.1 CYST OF KIDNEY, ACQUIRED 08/25/2017 MALENA, BARTOLO R STATION INSTALLER AND REPAIRER Ot M47.816 SPONDYLOSIS W/O MYELOPATHY OR RADICULOPA 08/25/2017 MALENABARTOLO R STATION INSTALLER AND REPAIRER Ot N28.1 CYST OF KIDNEY, ACQUIRED 08/25/2017 MALENA, BARTOLO R STATION INSTALLER AND REPAIRER Ot M47.816 SPONDYLOSIS W/O MYELOPATHY OR RADICULOPA 08/25/2017 MALENA, BARTOLO R STATION INSTALLER AND REPAIRER Ot N28.1 CYST OF KIDNEY, ACQUIRED 08/26/2017 MALENA, BARTOLO R STATION INSTALLER AND REPAIRER Ot M47.816 SPONDYLOSIS W/O MYELOPATHY OR RADICULOPA 08/26/2017 MALENA, BARTOLO R STATION INSTALLER AND REPAIRER Ot N28.1 CYST OF KIDNEY, ACQUIRED 09/03/2017 RIDDHI HO FACC, VELASQUEZ FACP CCDS Ot E78.5 HYPERLIPIDEMIA, UNSPECIFIED 09/03/2017 RIDDHI HO FACC, ALI FACP CCDS Ot I08.1 RHEUMATIC DISORDERS OF BOTH MITRAL AND T 09/03/2017 RIDDHI HO FACC, ALI FACP CCDS Ot I10 ESSENTIAL (PRIMARY) HYPERTENSION 09/03/2017 RIDDHI HO FACC, ALI FACP CCDS Ot I25.10 ATHSCL HEART DISEASE OF [place] CORONARY 09/03/2017 RIDDHI HO FACC, ALI FACP [...] CCDS Ot I25.10 ATHSCL HEART DISEASE OF [place] CORONARY 09/22/2017 RIDDHI HO FACC, ALI FACP [...] 599.71 GROSS HEMATURIA 12/04/2017 LINDA CRIS L CUPOLA LINER HELPER Ot F17.200 NICOTINE DEPENDENCE, UNSPECIFIED, UNCOMP 12/04/2017 LINDA CRIS L CUPOLA LINER HELPER Ot I 10 ESSENTIAL (PRIMARY) HYPERTENSION 12/04/2017 LINDA CRIS L CUPOLA LINER HELPER Ot I25.10 ATHSCL HEART DISEASE OF [place] CORONARY 12/04/2017 LINDA CRIS L CUPOLA LINER HELPER Ot I45.10 UNSPECIFIED RIGHT BUNDLE-BRANCH BLOCK 12/04/2017 MANPREET MCKEONHER L CUPOLA LINER HELPER Ot I73.9 PERIPHERAL VASCULAR DISEASE, UNSPECIFIED 12/04/2017 CRIS MCKEON L CUPOLA LINER HELPER Ot I77.1 STRICTURE OF ARTERY 12/04/2017 CRIS MCKEON L CUPOLA LINER HELPER Ot I77.9 DISORDER OF ARTERIES AND ARTERIOLES, UNS 12/04/2017 LINDA CRIS L CUPOLA LINER HELPER Ot R06.09 OTHER FORMS OF DYSPNEA 12/04/2017 MANPREET MCKEONHER L CUPOLA LINER HELPER Ot R78.5 FINDING OF OTHER PSYCHOTROPIC DRUG IN BL 12/04/2017 LINDA CRIS L CUPOLA LINER HELPER Ot E78.5 HYPERLIPIDEMIA, UNSPECIFIED 12/04/2017 FLETCHERMA CRIS L CUPOLA LINER HELPER Ot F17.200 NICOTINE DEPENDENCE, UNSPECIFIED, UNCOMP 12/04/2017 BAIMA, CRIS L CUPOLA LINER HELPER Ot I 10 ESSENTIAL (PRIMARY) HYPERTENSION 12/04/2017 FLETCHERMA CRIS L CUPOLA LINER HELPER Ot I25.10 ATHSCL HEART DISEASE OF [place] CORONARY 12/04/2017 LINDA CRIS L CUPOLA LINER HELPER Ot I45.10 UNSPECIFIED RIGHT BUNDLE-BRANCH BLOCK 12/04/2017 LINDA CRIS L CUPOLA LINER HELPER Ot I73.9 PERIPHERAL VASCULAR DISEASE, UNSPECIFIED 12/04/2017 LINDA CRIS L CUPOLA LINER HELPER Ot I77.1 STRICTURE OF ARTERY 12/04/2017 CRIS MCKEON CUPOLA LINER HELPER Ot I77.9 DISORDER OF ARTERIES AND ARTERIOLES, UNS 12/04/2017 CRIS MCKEON CUPOLA LINER HELPER Ot R06.09 OTHER FORMS OF DYSPNEA 12/04/2017 [...] CCDS Ot I25.10 ATHSCL HEART DISEASE OF [place] CORONARY 12/04/2017 RIDDHI HO FACC, ALI FACP [...] W/O MYELOPATHY OR RADICULOPA 12/04/2017 BARTOLO GUY STATION INSTALLER AND REPAIRER Ot N28.1 CYST OF KIDNEY, ACQUIRED 12/04/2017 BARTOLO GUY STATION INSTALLER AND REPAIRER Ot M47.816 SPONDYLOSIS W/O MYELOPATHY OR RADICULOPA 12/04/2017 BARTOLO GUY STATION INSTALLER AND REPAIRER Ot N28.1 CYST OF KIDNEY, ACQUIRED 12/09/2017 [...] 599.71 GROSS HEMATURIA 06/02/2018 CRIS MCKEON L CUPOLA LINER HELPER Ot F17.200 NICOTINE DEPENDENCE, UNSPECIFIED, UNCOMP 06/02/2018 CRIS MCKEON L CUPOLA LINER HELPER Ot I 10 ESSENTIAL (PRIMARY) HYPERTENSION 06/02/2018 CRIS MCKEON L CUPOLA LINER HELPER Ot I25.10 ATHSCL HEART DISEASE OF [place] CORONARY 06/02/2018 CRIS MCKEON L CUPOLA LINER HELPER Ot I45.10 UNSPECIFIED RIGHT BUNDLE-BRANCH BLOCK 06/02/2018 LINDA CRIS L [employer] LINER HELPER Ot I73.9 PERIPHERAL VASCULAR DISEASE, UNSPECIFIED 06/02/2018 MANPREET MCKEONHER L [employer] LINER HELPER Ot I77.1 STRICTURE OF ARTERY 06/02/2018 LINDA CRIS L [employer] LINER HELPER Ot I77.9 DISORDER OF ARTERIES AND ARTERIOLES, UNS 06/02/2018 MANPREET MCKEONHER L [employer] LINER HELPER Ot R06.09 OTHER FORMS OF DYSPNEA 06/02/2018 CRIS MCKEON L [employer] LINER HELPER Ot R78.5 FINDING OF OTHER PSYCHOTROPIC DRUG IN BL 06/02/2018 CRIS MCKEON L [employer] LINER HELPER Ot E78.5 HYPERLIPIDEMIA, UNSPECIFIED 06/02/2018 FLETCHERMA CRIS L [employer] LINER HELPER Ot F17.200 NICOTINE DEPENDENCE, UNSPECIFIED, UNCOMP 06/02/2018 BAIMA CRIS L [employer] LINER HELPER Ot I 10 ESSENTIAL (PRIMARY) HYPERTENSION 06/02/2018 LINDA CRIS L [employer] LINER HELPER Ot I25.10 ATHSCL HEART DISEASE OF [place] CORONARY 06/02/2018 CRIS MCKEON [employer] HELPER Ot I45.10 UNSPECIFIED RIGHT BUNDLE-BRANCH BLOCK 06/02/2018 CRIS MCKEON Guero [employer] HELPER Ot I73.9 PERIPHERAL VASCULAR DISEASE, UNSPECIFIED 06/02/2018 CRIS MCKEON [employer] LIN[employer] HELPER Ot I77.1 STRICTURE OF ARTERY 06/02/2018 CIRS MCKEON [employer] HELPER Ot I77.9 DISORDER OF ARTERIES AND ARTERIOLES, UNS 06/02/2018 LINDA CRIS Jack [employer] HELPER Ot R06.09 OTHER FORMS OF DYSPNEA 06/02/2018 [...] CCDS Ot I25.10 ATHSCL HEART DISEASE OF [place] CORONARY 06/02/2018 RIDDHI HO FACC, ALI FACP CCDS Ot I48.0 PAROXYSMAL ATRIAL FIBRILLATION 06/02/2018 RIDDHI HO FACC, ALI FACP CCDS Ot I73.9 PERIPHERAL VASCULAR DISEASE, UNSPECIFIED 06/02/2018 RIDDHI HO FACC, ALI FACP CCDS Ot Z72.0 TOBACCO USE 06/02/2018 RIDDHI MD FACC, ALI FACP CCDS Ot Z95.0 PRESENCE OF CARDIAC PACEMAKER 06/02/2018 BARTOLO GUY Benjamin STATION INSTALLER AND REPAIRER Ot M47.816 SPONDYLOSIS W/O MYELOPATHY OR RADICULOPA 06/02/2018 BARTOLO GUY STATION INSTALLER AND REPAIRER Ot N28.1 CYST OF KIDNEY, ACQUIRED 06/05/2018 [...] H47.10 UNSPECIFIED PAPILLEDEMA 05/08/2019 BAIMA, CRIS L [employer] LIN[employer] HELPER Ot F17.200 NICOTINE DEPENDENCE, UNSPECIFIED, UNCOMP 05/08/2019 BAIMA, CRIS L [employer] LINER HELPER Ot I 10 ESSENTIAL (PRIMARY) HYPERTENSION 05/08/2019 BAIMA, CRIS L [employer] LINER HELPER Ot I25.10 ATHSCL HEART DISEASE OF [place] CORONARY 05/08/2019 BAIMA, CRIS L [employer] LINER HELPER Ot I45.10 UNSPECIFIED RIGHT BUNDLE-BRANCH BLOCK 05/08/2019 BAIMA, CRIS L [employer] LINER HELPER Ot I73.9 PERIPHERAL VASCULAR DISEASE, UNSPECIFIED 05/08/2019 BAIMA, CRIS L [employer] LINER HELPER Ot I77.1 STRICTURE OF ARTERY 05/08/2019 BAIMA, CRIS L [employer] LINER HELPER Ot I77.9 DISORDER OF ARTERIES AND ARTERIOLES, UNS 05/08/2019 BAIMA, CRIS L [employer] LINER HELPER Ot R06.09 OTHER FORMS OF DYSPNEA 05/08/2019 BAIMA, CRIS L [employer] LINER HELPER Ot R78.5 FINDING OF OTHER PSYCHOTROPIC DRUG IN BL 05/08/2019 BAIMA, CRIS L [employer] LINER HELPER Ot E78.5 HYPERLIPIDEMIA, UNSPECIFIED 05/08/2019 BAIMA, CRIS L [employer] LINER HELPER Ot F17.200 NICOTINE DEPENDENCE, UNSPECIFIED, UNCOMP 05/08/2019 BAIMA, CRIS L [employer] LINER HELPER Ot I 10 ESSENTIAL (PRIMARY) HYPERTENSION 05/08/2019 BAIMA, CRIS L [employer] LINER HELPER Ot I25.10 ATHSCL HEART DISEASE OF [place] CORONARY 05/08/2019 BAIMA, CRIS L [employer] LINER HELPER Ot I45.10 UNSPECIFIED RIGHT BUNDLE-BRANCH BLOCK 05/08/2019 BAIMA, CRIS L [employer] LINER HELPER Ot I73.9 PERIPHERAL VASCULAR DISEASE, UNSPECIFIED 05/08/2019 BAIMA, CRIS L [employer] LINER HELPER Ot I77.1 STRICTURE OF ARTERY 05/08/2019 BAIMA, CRIS L [employer] LINER HELPER Ot I77.9 DISORDER OF ARTERIES AND ARTERIOLES, UNS 05/08/2019 BAIMA, CRIS L [employer] LINER HELPER Ot R06.09 OTHER FORMS OF DYSPNEA 05/08/2019 [...] CCDS Ot I25.10 ATHSCL HEART DISEASE OF [place] CORONARY 05/08/2019 RIDDHI HO FACC, ALI FACP CCDS Ot I48.0 PAROXYSMAL ATRIAL FIBRILLATION 05/08/2019 RIDDHI HO FACC, ALI FACP CCDS Ot I73.9 PERIPHERAL VASCULAR DISEASE, UNSPECIFIED 05/08/2019 RIDDHI HO FACC, ALI FACP CCDS Ot Z72.0 TOBACCO USE 05/08/2019 RIDDHI HO FACC, ALI FACP CCDS Ot Z95.0 PRESENCE OF CARDIAC PACEMAKER 05/08/2019 BARTOLO GUY STATION INSTALLER AND REPAIRER Ot M47.816 SPONDYLOSIS W/O MYELOPATHY OR RADICULOPA 05/08/2019 BARTOLO GUY R STATION INSTALLER AND REPAIRER Ot N28.1 CYST OF KIDNEY, ACQUIRED 05/08/2019 [...] H47.10 UNSPECIFIED PAPILLEDEMA 05/09/2019 BAIMA, CRIS L [employer] LINER HELPER Ot F17.200 NICOTINE DEPENDENCE, UNSPECIFIED, UNCOMP 05/09/2019 BAIMA, CRIS L [employer] LINER HELPER Ot I 10 ESSENTIAL (PRIMARY) HYPERTENSION 05/09/2019 BAIMA, CRIS L [employer] LINER HELPER Ot I25.10 ATHSCL HEART DISEASE OF [place] CORONARY 05/09/2019 BAIMA, CRIS L [employer] LINER HELPER Ot I45.10 UNSPECIFIED RIGHT BUNDLE-BRANCH BLOCK 05/09/2019 BAIMA, CRIS L [employer] LINER HELPER Ot I73.9 PERIPHERAL VASCULAR DISEASE, UNSPECIFIED 05/09/2019 BAIMA, CRIS L [employer] LINER HELPER Ot I77.1 STRICTURE OF ARTERY 05/09/2019 BAIMA, CRIS L CUPOLA LINER HELPER Ot I77.9 DISORDER OF ARTERIES AND ARTERIOLES, UNS 05/09/2019 BAIMA, CRIS L CUPOLA LINER HELPER Ot R06.09 OTHER FORMS OF DYSPNEA 05/09/2019 BAIMA, CRIS L CUPOLA LINER HELPER Ot R78.5 FINDING OF OTHER PSYCHOTROPIC DRUG IN BL 05/09/2019 BAIMA, CRIS L CUPOLA LINER HELPER Ot E78.5 HYPERLIPIDEMIA, UNSPECIFIED 05/09/2019 BAIMA, CRIS L CUPOLA LINER HELPER Ot F17.200 NICOTINE DEPENDENCE, UNSPECIFIED, UNCOMP 05/09/2019 BAIMA, CRIS L CUPOLA LINER HELPER Ot I 10 ESSENTIAL (PRIMARY) HYPERTENSION 05/09/2019 BAIMA, CRIS L CUPOLA LINER HELPER Ot I25.10 ATHSCL HEART DISEASE OF [place] CORONARY 05/09/2019 BAIMA, CRIS L CUPOLA LINER HELPER Ot I45.10 UNSPECIFIED RIGHT BUNDLE-BRANCH BLOCK 05/09/2019 BAICRIS FREEMAN [place] LINER HELPER Ot I73.9 PERIPHERAL VASCULAR DISEASE, UNSPECIFIED 05/09/2019 CRIS MCKEON C[place] LINER HELPER Ot I77.1 STRICTURE OF ARTERY 05/09/2019 CRIS MCKEON C[place] LINER HELPER Ot I77.9 DISORDER OF ARTERIES AND ARTERIOLES, UNS 05/09/2019 FLETCHERCRIS FREEMAN [place] LINER HELPER Ot R06.09 OTHER FORMS OF DYSPNEA 05/09/2019 [...] FACP CCDS Ot E78.5 HYPERLIPIDEMIA, UNSPECIFIED 05/09/2019 RIDHDI HO FACC, ALI FACP CCDS Ot I08.1 RHEUMATIC DISORDERS OF BOTH MITRAL AND T 05/09/2019 RIDDHI HO FACC, ALI FACP CCDS Ot I10 ESSENTIAL (PRIMARY) HYPERTENSION 05/09/2019 RIDDHI HO FACC, ALI FACP CCDS Ot I25.10 ATHSCL HEART DISEASE OF [place] CORONARY 05/09/2019 RIDDHI HO FACC, ALI FACP CCDS Ot I48.0 PAROXYSMAL ATRIAL FIBRILLATION 05/09/2019 RIDDHI HO FACC, ALI FACP CCDS Ot I73.9 PERIPHERAL VASCULAR DISEASE, UNSPECIFIED 05/09/2019 RIDDHI HO FACC, ALI FACP CCDS Ot Z72.0 TOBACCO USE 05/09/2019 RIDDHI OH FACC, ALI FACP CCDS Ot Z95.0 PRESENCE OF CARDIAC PACEMAKER 05/09/2019 MALENA, BARTOLO R STATION INSTALLER AND REPAIRER Ot M47.816 SPONDYLOSIS W/O MYELOPATHY OR RADICULOPA 05/09/2019 MALENA BARTOLO Benjamin STATION INSTALLER AND REPAIRER Ot N28.1 CYST OF KIDNEY, ACQUIRED 05/09/2019 [...] Ot I25. 10 ATHSCL HEART DISEASE OF [place] CORONARY 05/12/2019 AFBIAN GOMES MD Ot I34. 0 NONRHEUMATIC MITRAL (VALVE) INSUFFICIENC 05/12/2019 FABIAN GOMES MD Ot I45. 10 UNSPECIFIED RIGHT BUNDLE-BRANCH BLOCK 05/12/2019 FABIAN GOMES MD Ot I48. 0 PAROXYSMAL ATRIAL FIBRILLATION 05/12/2019 FABIAN GOMES MD, Ot I50. 33 ACUTE ON CHRONIC DIASTOLIC (CONGESTIVE) 05/12/2019 FABIAN GOMES MD Ot I65. 23 OCCLUSION AND STENOSIS OF BILATERAL [place] 05/12/2019 FABIAN GOMES MD Ot I70.213 ATHSCL [place] ARTERIES OF EXTRM W INTRMT 05/12/2019 FABIAN [...] 05/12/2019 FABIAN GOMES MD Ot Z79. 01 CAGE TENDER (CURRENT) USE OF ANTICOAGULANT 05/12/2019 FAIBAN GOMES MD Ot Z79. 84 CAGE TENDER (CURRENT) USE OF ORAL HYPOGLYC 05/12/2019 FABIAN [...] Ot I25. 10 ATHSCL HEART DISEASE OF [place] CORONARY 05/13/2019 FABIAN GOMES MD, Ot I34. 0 NONRHEUMATIC MITRAL (VALVE) INSUFFICIENC 05/13/2019 FABIAN GOMES MD, Ot I45. 10 UNSPECIFIED RIGHT BUNDLE-BRANCH BLOCK 05/13/2019 FABIAN GOMES MD, Ot I48. 0 PAROXYSMAL ATRIAL FIBRILLATION 05/13/2019 FABIAN GOMES MD, Ot I50. 33 ACUTE ON CHRONIC DIASTOLIC (CONGESTIVE) 05/13/2019 FABIAN GOMES MD, Ot I65. 23 OCCLUSION AND STENOSIS OF BILATERAL [place] 05/13/2019 FABIAN GOEMS MD, Ot I70.213 ATHSCL [place] ARTERIES OF EXTRM W INTRMT 05/13/2019 FABIAN [...] 05/13/2019 FABIAN GOMES MD, Ot Z79. 01 ALF (CURRENT) USE OF ANTICOAGULANT 05/13/2019 FABIAN GOMES MD, Ot Z79. 84 ALF (CURRENT) USE OF ORAL HYPOGLYC 05/13/2019 FABIAN [...] F17.210 NICOTINE DEPENDENCE, CIGARETTES, UNCOMPL 05/13/2019 FABIAN GOMSE MD Ot G93. 41 METABOLIC ENCEPHALOPATHY 05/13/2019 FABIAN GOMES MD, Ot I11. 0 HYPERTENSIVE HEART DISEASE WITH HEART FA 05/13/2019 FABIAN GOMES MD, Ot I21. A1 MYOCARDIAL INFARCTION TYPE 2 05/13/2019 FABIAN GOMES MD, Ot I25. 10 ATHSCL HEART DISEASE OF [place] CORONARY 05/13/2019 FABIAN GOMES MD, Ot I34. [...] 05/13/2019 FABIAN GOMES MD Ot I70.213 ATHSCL [place] ARTERIES OF EXTRM W INTRMT 05/13/2019 FABIAN [...] 05/13/2019 FABIAN GOMES MD, Ot Z79. 01 ALF (CURRENT) USE OF ANTICOAGULANT 05/13/2019 FABIAN GOMES MD Ot Z79. 84 CAGE TENDER (CURRENT) USE OF ORAL HYPOGLYC 05/13/2019 FABIAN GOMES MD Ot Z86. 73 PRSNL HX OF TIA (TIA), AND CEREB INFRC W 05/13/2019 FABIAN GOMES MD Ot Z91. 81 HISTORY OF FALLING 05/13/2019 FABIAN GOMES MD, Ot Z95. 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 VASCULAR ANGIOPLASTY STATUS W 05/13/2019 FABIAN GOMES MD Ot E11.649 TYPE 2 DIABETES MELLITUS WITH HYPOGLYCEM 05/13/2019 FABIAN GOMES MD, Ot E78. 00 PURE HYPERCHOLESTEROLEMIA, UNSPECIFIED 05/13/2019 FABIAN GOMES MD, Ot E78. 5 HYPERLIPIDEMIA, UNSPECIFIED 05/13/2019 FABIAN GOMES MD Ot F03. 90 UNSPECIFIED DEMENTIA WITHOUT BEHAVIORAL 05/13/2019 FABIAN GOMES MD Ot F17.210 NICOTINE DEPENDENCE, CIGARETTES, UNCOMPL 05/13/2019 FABIAN GOMES MD Ot G93. 41 METABOLIC ENCEPHALOPATHY 05/13/2019 FABIAN GOMES MD Ot I11. 0 HYPERTENSIVE HEART DISEASE WITH HEART FA 05/13/2019 FABIAN GOMES MD Ot I21. A1 MYOCARDIAL INFARCTION TYPE 2 05/13/2019 FABIAN GOMES MD, Ot I25. 10 ATHSCL HEART DISEASE OF [place] CORONARY 05/13/2019 FABIAN GOMES MD Ot I34. 0 NONRHEUMATIC MITRAL (VALVE) INSUFFICIENC 05/13/2019 FABIAN GOMES MD Ot I45. 10 UNSPECIFIED RIGHT BUNDLE-BRANCH BLOCK 05/13/2019 FABIAN GOMES MD Ot I48. 0 PAROXYSMAL ATRIAL FIBRILLATION 05/13/2019 FABIAN GOMES MD Ot I50. 33 ACUTE ON CHRONIC DIASTOLIC (CONGESTIVE) 05/13/2019 FABIAN GOMES MD Ot I65. 23 OCCLUSION AND STENOSIS OF [place]ILATERAL [place] 05/13/2019 FABIAN GOMES MD Ot I70.213 ATHSCL [place] ARTERIES OF EXTRM W INTRMT 05/13/2019 FABIAN [...] 1 WEAKNESS 05/13/2019 FABIAN GOMES MD, Ot R91. 1 SOLITARY PULMONARY NODULE 05/13/2019 FABIAN GOMES MD Ot Z23 ENCOUNTER FOR IMMUNIZATION 05/13/2019 FABIAN GOMES MD, Ot Z79. 01 CAGE TENDER (CURRENT) USE OF ANTICOAGULANT 05/13/2019 FABIAN GOMES MD, Ot Z79. 84 CAGE TENDER (CURRENT) USE OF ORAL HYPOGLYC 05/13/2019 FABIAN GOMES MD, Ot Z86. 73 PRSNL HX OF TIA (TIA), AND CEREB INFRC W 05/13/2019 FABIAN GOMES MD, Ot Z91. 81 HISTORY OF FALLING 05/13/2019 FABIAN GOMES MD Ot Z95. 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 VASCULAR ANGIOPLASTY STATUS W 05/21/2019 FABIAN GOMES MD Ot E11.649 TYPE 2 DIABETES MELLITUS WITH HYPOGLYCEM 05/21/2019 FABIAN GOMES MD Ot E78. 5 HYPERLIPIDEMIA, UNSPECIFIED 05/21/2019 FABIAN GOMES MD Ot F03. 90 UNSPECIFIED DEMENTIA WITHOUT BEHAVIORAL 05/21/2019 FABIAN GOMES MD Ot F17.210 NICOTINE DEPENDENCE, CIGARETTES, UNCOMPL 05/21/2019 FABIAN GOMES MD Ot G93. 41 METABOLIC ENCEPHALOPATHY 05/21/2019 FABIAN GOMES MD Ot I11. 0 HYPERTENSIVE HEART DISEASE WITH HEART FA 05/21/2019 FABIAN GOMES MD, Ot I21. A1 MYOCARDIAL INFARCTION TYPE 2 05/21/2019 FABIAN GOMES MD, Ot I25. 10 ATHSCL HEART DISEASE OF [place] CORONARY 05/21/2019 FABIAN GOMES MD Ot I34. 0 NONRHEUMATIC MITRAL (VALVE) INSUFFICIENC 05/21/2019 FABIAN GOMES MD, Ot I45. 10 UNSPECIFIED RIGHT BUNDLE-BRANCH BLOCK 05/21/2019 FABIAN GOMES MD, Ot I48. 0 PAROXYSMAL ATRIAL FIBRILLATION 05/21/2019 FABIAN GOMES MD, Ot I50. 33 ACUTE ON CHRONIC DIASTOLIC (CONGESTIVE) 05/21/2019 FABIAN GOMES MD, Ot I65. 23 OCCLUSION AND STENOSIS OF BILATERAL [place] 05/21/2019 FABIAN GOMES MD Ot I70.213 ATHSCL [place] ARTERIES OF EXTRM W INTRMT 05/21/2019 FABIAN GOMES MD, Ot J44. 9 CHRONIC OBSTRUCTIVE PULMONARY DISEASE, U 05/21/2019 FABIAN GOMES MD, Ot K21. 9 GASTRO-ESOPHAGEAL REFLUX DISEASE WITHOUT 05/21/2019 FABIAN GOMES MD, Ot M19. 91 PRIMARY OSTEOARTHRITIS, UNSPECIFIED SITE 05/21/2019 FABIAN GOMES MD, Ot N40. 0 BENIGN PROSTATIC HYPERPLASIA WITHOUT LOW 05/21/2019 FABIAN GOEMS MD Ot R09. 02 HYPOXEMIA 05/21/2019 FABIAN GOMES MD, Ot R53. 1 WEAKNESS 05/21/2019 FABIAN GOMES MD Ot R91. 1 SOLITARY PULMONARY NODULE 05/21/2019 FABIAN GOMES MD Ot Z23 ENCOUNTER FOR IMMUNIZATION 05/21/2019 FABIAN GOMES MD Ot Z79. 01 CAGE TENDER (CURRENT) USE OF ANTICOAGULANT 05/21/2019 FABIAN GOMES MD Ot Z79. 84 CAGE TENDER (CURRENT) USE OF ORAL HYPOGLYC 05/21/2019 FABIAN GOMES MD Ot Z86. 73 PRSNL HX OF TIA (TIA), AND CEREB INFRC W 05/21/2019 FABIAN GOMES MD Ot Z91. 81 HISTORY OF FALLING 05/21/2019 FABIAN GOMES MD Ot Z95. 0 PRESENCE OF CARDIAC PACEMAKER 05/21/2019 FABIAN GOMES MD Ot Z95.820 PERIPHERAL VASCULAR ANGIOPLASTY STATUS W 05/21/2019 FABIAN GOMES MD Ot E11.649 TYPE 2 DIABETES MELLITUS WITH HYPOGLYCEM 05/21/2019 FABIAN GOMES MD Ot E78. 5 HYPERLIPIDEMIA, UNSPECIFIED 05/21/2019 FABIAN GOMES MD Ot F03. 90 UNSPECIFIED DEMENTIA WITHOUT BEHAVIORAL 05/21/2019 FABIAN GOMES MD Ot F17.210 NICOTINE DEPENDENCE, CIGARETTES, UNCOMPL 05/21/2019 FABIAN GOMES MD, Ot G93. 41 METABOLIC ENCEPHALOPATHY 05/21/2019 FABIAN GOMES MD, Ot I11. 0 HYPERTENSIVE HEART DISEASE WITH HEART FA 05/21/2019 FABIAN GOMES MD, Ot I21. A1 MYOCARDIAL INFARCTION TYPE 2 05/21/2019 FABIAN GOMES MD, Ot I25. 10 ATHSCL HEART DISEASE OF [place] CORONARY 05/21/2019 FABIAN GOMES MD, Ot I34. 0 NONRHEUMATIC MITRAL (VALVE) INSUFFICIENC 05/21/2019 FABIAN GOMES MD, Ot I45. 10 UNSPECIFIED RIGHT BUNDLE-BRANCH BLOCK 05/21/2019 FABIAN GOMES MD, Ot I48. 0 PAROXYSMAL ATRIAL FIBRILLATION 05/21/2019 FABIAN GOMES MD, Ot I50. 33 ACUTE ON CHRONIC DIASTOLIC (CONGESTIVE) 05/21/2019 FABIAN GOMES MD, Ot I65. 23 OCCLUSION AND STENOSIS OF BILATERAL [place] 05/21/2019 FABIAN GOMES MD, Ot I70.213 ATHSCL [place] ARTERIES OF EXTRM W INTRMT 05/21/2019 FABIAN GOMES MD, Ot J44. 9 CHRONIC OBSTRUCTIVE PULMONARY DISEASE, U 05/21/2019 FABIAN GOMES MD, Ot K21. 9 GASTRO-ESOPHAGEAL REFLUX DISEASE WITHOUT 05/21/2019 FABIAN GOMES MD, Ot M19. 91 PRIMARY OSTEOARTHRITIS, UNSPECIFIED SITE 05/21/2019 FABIAN GOMES MD, Ot N40. 0 BENIGN PROSTATIC HYPERPLASIA WITHOUT LOW 05/21/2019 FABIAN GOMES MD Ot R09. 02 HYPOXEMIA 05/21/2019 FABIAN GOMES MD Ot R53. 1 WEAKNESS 05/21/2019 FABIAN GOMES MD, Ot R91. 1 SOLITARY PULMONARY NODULE 05/21/2019 FABIAN GOMES MD Ot Z23 ENCOUNTER FOR IMMUNIZATION 05/21/2019 FABIAN GOMES MD Ot Z79. 01 CAGE TENDER (CURRENT) USE OF ANTICOAGULANT 05/21/2019 FABIAN GOMES MD, Ot Z79. 84 CAGE TENDER (CURRENT) USE OF ORAL HYPOGLYC 05/21/2019 FABIAN GOMES MD, Ot Z86. 73 PRSNL HX OF TIA (TIA), AND CEREB INFRC W 05/21/2019 FABIAN GOMES MD, Ot Z91. 81 HISTORY OF FALLING 05/21/2019 FABIAN GOMES MD, Ot Z95. 0 PRESENCE OF CARDIAC PACEMAKER 05/21/2019 FABIAN GOMES MD, Ot Z95.820 PERIPHERAL VASCULAR ANGIOPLASTY STATUS W 05/21/2019 FABIAN GOMES MD, Ot E11.649 TYPE 2 DIABETES MELLITUS WITH HYPOGLYCEM 05/21/2019 FABIAN GOMES MD, Ot E78. 5 HYPERLIPIDEMIA, UNSPECIFIED 05/21/2019 FABIAN GOMES MD, Ot F03. 90 UNSPECIFIED DEMENTIA WITHOUT BEHAVIORAL 05/21/2019 FABIAN GOMES MD, Ot F17.210 NICOTINE DEPENDENCE, CIGARETTES, UNCOMPL 05/21/2019 FABIAN GOMES MD, Ot G93. 41 METABOLIC ENCEPHALOPATHY 05/21/2019 FABIAN GOMES MD, Ot I11. 0 HYPERTENSIVE HEART DISEASE WITH HEART FA 05/21/2019 FABIAN GOMES MD, Ot I21. A1 MYOCARDIAL INFARCTION TYPE 2 05/21/2019 FABIAN GOMES MD, Ot I25. 10 ATHSCL HEART DISEASE OF [place] CORONARY 05/21/2019 FABIAN GOMES MD Ot I34. 0 NONRHEUMATIC MITRAL (VALVE) INSUFFICIENC 05/21/2019 FABIAN GOMES MD Ot I45. 10 UNSPECIFIED RIGHT BUNDLE-BRANCH BLOCK 05/21/2019 FABIAN GOMES MD Ot I48. 0 PAROXYSMAL ATRIAL FIBRILLATION 05/21/2019 FABIAN GOMES MD Ot I50. 33 ACUTE ON CHRONIC DIASTOLIC (CONGESTIVE) 05/21/2019 FABIAN GOMES MD Ot I65. 23 OCCLUSION AND STENOSIS OF BILATERAL [place] 05/21/2019 FABIAN GOMES MD Ot I70.213 ATHSCL [place] ARTERIES OF EXTRM W INTRMT 05/21/2019 FABIAN GOMES MD Ot J44. 9 CHRONIC OBSTRUCTIVE PULMONARY DISEASE, U 05/21/2019 FABIAN GOMES MD, Ot K21. 9 GASTRO-ESOPHAGEAL REFLUX DISEASE WITHOUT 05/21/2019 FABIAN GOMES MD Ot M19. 91 PRIMARY OSTEOARTHRITIS, UNSPECIFIED SITE 05/21/2019 FABIAN GOMES MD Ot N40. 0 BENIGN PROSTATIC HYPERPLASIA WITHOUT LOW 05/21/2019 FABIAN GOMES MD Ot R09. 02 HYPOXEMIA 05/21/2019 FABIAN GOMES MD Ot R53. 1 WEAKNESS 05/21/2019 FABIAN GOMES MD Ot R91. 1 SOLITARY PULMONARY NODULE 05/21/2019 FABIAN GOMES MD Ot Z23 ENCOUNTER FOR IMMUNIZATION 05/21/2019 FABIAN GOMES MD, Ot Z79. 01 ALF (CURRENT) USE OF ANTICOAGULANT 05/21/2019 FABIAN GOMES MD, Ot Z79. 84 ALF (CURRENT) USE OF ORAL HYPOGLYC 05/21/2019 FABIAN GOMES MD, Ot Z86. 73 PRSNL HX OF TIA (TIA), AND CEREB INFRC W 05/21/2019 FABIAN GOMES MD, Ot Z91. 81 HISTORY OF FALLING 05/21/2019 FABIAN GOMES MD, Ot Z95. 0 PRESENCE OF CARDIAC PACEMAKER 05/21/2019 FABIAN GOMES MD, Ot Z95.820 PERIPHERAL VASCULAR ANGIOPLASTY STATUS W 05/21/2019 FABIAN GOMES MD Ot E11.649 TYPE 2 DIABETES MELLITUS WITH HYPOGLYCEM 05/21/2019 FABIAN GOMES MD Ot E78. 5 HYPERLIPIDEMIA, UNSPECIFIED 05/21/2019 FABIAN GOMES MD Ot F03. 90 UNSPECIFIED DEMENTIA WITHOUT BEHAVIORAL 05/21/2019 FABIAN GOMES MD Ot F17.210 NICOTINE DEPENDENCE, CIGARETTES, UNCOMPL 05/21/2019 FABIAN GOMES MD Ot G93. 41 METABOLIC ENCEPHALOPATHY 05/21/2019 FABIAN GOMES MD Ot I11. 0 HYPERTENSIVE HEART DISEASE WITH HEART FA 05/21/2019 FABIAN GOMES MD Ot I21. A1 MYOCARDIAL INFARCTION TYPE 2 05/21/2019 FABIAN GOMES MD Ot I25. 10 ATHSCL HEART DISEASE OF [place] CORONARY 05/21/2019 FABIAN GOMES MD Ot I34. 0 NONRHEUMATIC MITRAL (VALVE) INSUFFICIENC 05/21/2019 FABIAN GOMES MD Ot I45. 10 UNSPECIFIED RIGHT BUNDLE-BRANCH BLOCK 05/21/2019 FABIAN GOMES MD Ot I48. 0 PAROXYSMAL ATRIAL FIBRILLATION 05/21/2019 FABIAN GOMES MD Ot I50. 33 ACUTE ON CHRONIC DIASTOLIC (CONGESTIVE) 05/21/2019 FABIAN GOMES MD Ot I65. 23 OCCLUSION AND STENOSIS OF BILATERAL [place] 05/21/2019 FABIAN GOMES MD Ot I70.213 ATHSCL [place] ARTERIES OF EXTRM W INTRMT 05/21/2019 FABIAN GOMES MD, Ot J44. 9 CHRONIC OBSTRUCTIVE PULMONARY DISEASE, U 05/21/2019 FABIAN GOMES MD, Ot K21. 9 GASTRO-ESOPHAGEAL REFLUX DISEASE WITHOUT 05/21/2019 FABIAN GOMES MD, Ot M19. 91 PRIMARY OSTEOARTHRITIS, UNSPECIFIED SITE 05/21/2019 FABIAN GOMES MD, Ot N40. 0 BENIGN PROSTATIC HYPERPLASIA WITHOUT LOW 05/21/2019 FABIAN GOMES MD Ot R09. 02 HYPOXEMIA 05/21/2019 FABIAN GOMES MD, Ot R53. 1 WEAKNESS 05/21/2019 FABIAN GOMES MD, Ot R91. 1 SOLITARY PULMONARY NODULE 05/21/2019 FABIAN GOMES MD, Ot Z23 ENCOUNTER FOR IMMUNIZATION 05/21/2019 FABIAN GOMES MD, Ot Z79. 01 CAGE TENDER (CURRENT) USE OF ANTICOAGULANT 05/21/2019 FABIAN GOMES MD, Ot Z79. 84 ALF (CURRENT) USE OF ORAL HYPOGLYC 05/21/2019 FABIAN GOMES MD, Ot Z86. 73 PRSNL HX OF TIA (TIA), AND CEREB INFRC W 05/21/2019 FABIAN GOMES MD, Ot Z91. 81 HISTORY OF FALLING 05/21/2019 FABIAN GOMES MD Ot Z95. 0 PRESENCE OF CARDIAC PACEMAKER 05/21/2019 FABIAN GOMES MD Ot Z95.820 PERIPHERAL VASCULAR ANGIOPLASTY STATUS W 05/21/2019 FABIAN GOMES MD Ot E11.649 TYPE 2 DIABETES MELLITUS WITH HYPOGLYCEM 05/21/2019 FABIAN GOMES MD Ot E78. 5 HYPERLIPIDEMIA, UNSPECIFIED 05/21/2019 FABIAN GOMES MD, Ot F03. 90 UNSPECIFIED DEMENTIA WITHOUT BEHAVIORAL 05/21/2019 FABIAN GOMES MD Ot F17.210 NICOTINE DEPENDENCE, CIGARETTES, UNCOMPL 05/21/2019 FABIAN GOMES MD Ot G93. 41 METABOLIC ENCEPHALOPATHY 05/21/2019 FABIAN GOMES MD, Ot I11. 0 HYPERTENSIVE HEART DISEASE WITH HEART FA 05/21/2019 FABIAN GOMES MD, Ot I21. A1 MYOCARDIAL INFARCTION TYPE 2 05/21/2019 FABIAN GOMES MD, Ot I25. 10 ATHSCL HEART DISEASE OF [place] CORONARY 05/21/2019 FABIAN GOMES MD Ot I34. 0 NONRHEUMATIC MITRAL (VALVE) INSUFFICIENC 05/21/2019 FABIAN GOMES MD, Ot I45. 10 UNSPECIFIED RIGHT BUNDLE-BRANCH BLOCK 05/21/2019 FABIAN GOMES MD, Ot I48. 0 PAROXYSMAL ATRIAL FIBRILLATION 05/21/2019 FABIAN GOMES MD, Ot I50. 33 ACUTE ON CHRONIC DIASTOLIC (CONGESTIVE) 05/21/2019 FABIAN GOMES MD, Ot I65. 23 OCCLUSION AND STENOSIS OF BILATERAL [place] 05/21/2019 FABIAN GOMES MD Ot I70.213 ATHSCL [place] ARTERIES OF EXTRM W INTRMT 05/21/2019 FABIAN GOMES MD, Ot J44. 9 CHRONIC OBSTRUCTIVE PULMONARY DISEASE, U 05/21/2019 FABIAN GOMES MD, Ot K21. 9 GASTRO-ESOPHAGEAL REFLUX DISEASE WITHOUT 05/21/2019 FABIAN GOMES MD Ot M19. 91 PRIMARY OSTEOARTHRITIS, UNSPECIFIED SITE 05/21/2019 FABIAN GOMES MD Ot N40. 0 BENIGN PROSTATIC HYPERPLASIA WITHOUT LOW 05/21/2019 FABIAN GOMES MD Ot R09. 02 HYPOXEMIA 05/21/2019 FABIAN GOMES MD, Ot R53. 1 WEAKNESS 05/21/2019 FABIAN GOMES MD, Ot R91. 1 SOLITARY PULMONARY NODULE 05/21/2019 FABIAN GOMES MD Ot Z23 ENCOUNTER FOR IMMUNIZATION 05/21/2019 FABIAN GOMES MD Ot Z79. 01 ALF (CURRENT) USE OF ANTICOAGULANT 05/21/2019 FABIAN GOMES MD Ot Z79. 84 ALF (CURRENT) USE OF ORAL HYPOGLYC 05/21/2019 FABIAN GOMES MD Ot Z86. 73 PRSNL HX OF TIA (TIA), AND CEREB INFRC W 05/21/2019 FABIAN GOMES MD Ot Z91. 81 HISTORY OF FALLING 05/21/2019 FABIAN GOMES MD Ot Z95. 0 PRESENCE OF CARDIAC PACEMAKER 05/21/2019 FABIAN GOMES MD, Ot Z95.820 PERIPHERAL VASCULAR ANGIOPLASTY STATUS W Procedures Code Description Performed By Per formed On [id number] EX CISION OF DUODENUM, ENDO 04/22/2016 [id number] EX CISION OF TRANSVERSE COLON, ENDO 04/23/2016 [id number] EX CISION OF RECTUM, ENDO 04/23/2016 Results [...] OF GROWTH Isolated NRG Bacterial blood culture [id number] NRG Bacterial blood culture - 04/07/16 12:15 [...] 103 mmol/L 98-107 Carbon dioxide 21 mmol/L 21-32 [...] in urine sediment by light microscopy NEGATIVE NR Complete urinalysis with reflex to culture YES [...] ABO+Rh group BP NRG Transfusion band number [id number] NRG Blood group antibody screen NEGATIVE NR [...] VE NEGATIVE Whole blood hemoglobin and hematocrit pa [facility] - 04/22/16 05:20 Venous blood hemoglobin measurement [...] 70-110 Whole blood hemoglobin and hematocrit nandini [facility] - 04/22/16 14:03 Venous blood hemoglobin measurement [...] 70-110 Whole blood hemoglobin and hematocrit nandini [facility] - 04/22/16 22:38 Venous blood hemoglobin measurement (mass/volume) 10.1 g/dL 13.3-17.7 Blood hematocrit (volume fraction) 30 % 40-54 Capillary blood glucose measurement by g lucometer (mass/volume) - 04/23/16 05:15 Capillary blood glucose measurement by glucometer (mas s/volume) 200 mg/dL 70-110 Whole blood hemoglobin and hematocrit [facility] - 04/23/16 05:40 Venous blood hemoglobin measurement (mass/volume) 9.6 g/dL 13.3-17.7 Blood hematocrit (volume fraction) 29 % 40-54 Whole blood hemoglobin and hematocrit [facility] - 04/23/16 14:10 Venous blood [...] . NRG Bacterial blood culture SEE COMMEN NRG Urine drug screening test - 05/08/19 19: [...] culture - 05/08/19 19:05 Bacterial urine culture [id number] NRG COLONY COUNT 40,000 CFU/ML NRG FTX;REPORTABLE [...] Status Pt. Type Provider Facility Loc./Unit Complaint [id number] 05/10/2019 16:29:00 020 16:45:00 DIS Outpatient FABIAN GOMES MD Via [facility] 4TH HYPOGLYCEMIC, ELEVATED TROP I, PHYSICAL DEBILITY [id number] 07/28/2018 08:15:00 019 23:59:59 CLS Outpatient GLADYS ORONA DO [facility] RAD PAPILLEDEMA [id number] 07/23/2018 09:01:00 019 23:59:59 CLS Outpatient ALYCENANIER DO GLADYS S [facility] RAD DYSPNEA/WEIGHT LOSS [id number] 06/03/2018 12:16:00 019 23:59:59 CLS Outpatient JESSIE SY MD [facility] RAD HEMATURIA [id number] 09/01/2017 10:47:00 23:59:59 CLS Outpatient RIDDHI HO FACC, VELASQUEZ ROJO CC DS [facility] CARD CAD,CAROTID ARTERIAL DISEASE [id number] 08/05/2017 11:39:00 23:59:59 CLS Outpatient BARTOLO GUY APRN [facility] RAD HEMATURIA [id number] 05/07/2017 11:38:00 23:59:59 CLS Outpatient JESSIE SY MD [facility] RAD HEMATURIA [id number] 04/21/2016 14:30:00 017 09:35:00 DIS Inpatient SARAHI ORONA DOQUELINE S [facility] 4TH GI BLEED,WEAKNESS,ANEMIA,DEBILITY [id number] 04/19/2016 17:15:00 017 20:13:00 DIS Emergency DEBI VELEZ MD [facility] ER UNRESPONSIVE [id number] 04/11/2016 12:49:00 017 13:00:00 DIS Inpatient ALYCENDER DO GLADYS S [facility] 4TH SWB UTI,GENERAL IZED WEAKNESS,CHF [id number] 04/07/2016 15:13:00 017 12:49:00 DIS Inpatient ADWOA DO GLADYS S [facility] 4TH URINARY TRACT INFECTION,GENERALIZED WEAKNESS,CHF [id number] 03/25/2016 11:12:00 017 23:59:59 CLS Outpatient JESSIE SY MD [facility] RAD GROSS HEMATURIA [id number] 01/18/2015 08:36:00 015 23:59:59 CLS Outpatient CRIS MCKEON [facility] CARD DYSPNEA,HTN,CAD,CLAUDICATION [id number] 01/02/2015 09:14:00 015 23:59:59 CLS Outpatient CRIS MCKEON [facility] RAD DYSPNEA,HTN,CAD,CLAUDICATION [id number] 11/07/2013 12:22:00 014 23:59:59 CLS Outpatient GLADYS ORONA DO [facility] RAD ACUTE GROSS HEM ATURIA [id number] 11/16/2012 08:41:00 013 23:59:59 CLS Outpatient GLADYS ORONA DO [facility] RAD LUNG NODULE [id number] 05/13/2011 08:34:00 Document Registration [id number] 05/01/2011 07:43:00 Document Registration [id number] 02/14/2011 10:41:00 Document Registration [id number] 11/04/2010 08:12:00 Document Registration
[2019-07-08 14:58] LABS: BASOPHILS % (AUTO) 0 % (0-10); EOSINOPHILS % (AUTO) 1 % (0-10); HEMATOCRIT 38 % (40-54); HEMOGLOBIN 12.7 G/DL (13.3-17.7); LYMPHOCYTES % (AUTO) 12 % (12-44); MEAN CORPUSCULAR HEMOGLOBIN 30 PG (25-34); MEAN CORPUSCULAR HGB CONC 33 G/DL (32-36); MEAN CORPUSCULAR VOLUME 89 FL (80-99); MEAN PLATELET VOLUME 10.6 FL (7.4-10.4); MONOCYTES # (AUTO) 0.8 X 10^3 (0.0-1.0); MONOCYTES % (AUTO) 10 % (0-12); NEUTROPHILS # (AUTO) 6.6 X 10^3 (1.8-7.8); NEUTROPHILS % (AUTO) 78 % (42-75); PLATELET COUNT 270 10^3/uL (130-400); RED CELL DISTRIBUTION WIDTH 16.9 % (10.0-14.5); WHITE BLOOD COUNT 8.4 10^3/uL (4.3-11.0)
[2019-07-08 15:13] LABS: ALBUMIN 3.9 GM/DL (3.2-4.5); CHLORIDE 107 MMOL/L (98-107); POTASSIUM 4.1 MMOL/L (3.6-5.0); SODIUM 138 MMOL/L (135-145)
[2019-07-08 15:15] LABS: GLUCOSE 136 MG/DL (70-105); TOTAL PROTEIN 7.1 GM/DL (6.4-8.2)
[2019-07-08 15:16] LABS: CARBON DIOXIDE 19 MMOL/L (21-32)
[2019-07-08 15:17] LABS: BILIRUBIN,TOTAL 0.8 MG/DL (0.1-1.0)
[2019-07-08 15:19] LABS: ALKALINE PHOSPHATASE 56 U/L (40-136); CREATININE SERUM 1.09 MG/DL (0.60-1.30); GFR ESTIMATED > 60
[2019-07-08 15:20] LABS: BUN/CREATININE RATIO 23
[2019-07-08 15:22] LABS: ALANINE AMINOTRANSFERASE 14 U/L (0-55)
--- NOTE | 2019-07-08 15:43 | Diagnostic Imaging Report ---
PROCEDURE: CT lumbar spine without contrast. TECHNIQUE: Multiple contiguous axial images were obtained through the lumbar spine without the use of intravenous contrast. Sagittal and coronal reformations were then performed. Auto Exposure Controls were utilized during the CT exam to meet ALARA standards for radiation dose reduction. INDICATION: Difficulty walking x2 days There are is a grade 1 spondylolisthesis at L4-L5. There is an old compression fracture involving the anterior aspect of the superior endplate of L1. This was present on previous plain film of the spine dated 08/05/2017. There are no acute compression fractures. There is vacuum disc phenomena at T12-L1, L2-L3, L4-L5 and L5-S1. Posterior elements appear to be intact although there are moderate degenerative changes of the facet joints at L3-L4, L4-L5 and L5-S1. There is calcific atherosclerosis of the aorta. IMPRESSION: Severe degenerative disc change at T12-L1, L4-L5 and L5-S1 with grade 1 spinal listhesis at L4-L5. There is moderate facet arthropathy at L3-L4, L4-L5 and L5-S1. There is an old compression fracture of the superior endplate of L1. There is no acute abnormality seen. There is bony foraminal narrowing on the left at L4-L5 and L5-S1. Dictated by: Dictated on workstation # [id number]
[2019-07-08 16:15] LABS: BILIRUBIN,URINE NEGATIVE (NEGATIVE); CLARITY,URINE SL CLOUDY; COLOR,URINE YELLOW; GLUCOSE, URINE (UA) NEGATIVE (NEGATIVE); KETONES,URINE TRACE (NEGATIVE); LEUKOCYTE ESTERASE ,URINE 1+ (NEGATIVE); NITRITE,URINE NEGATIVE (NEGATIVE); PROTEIN,URINE 2+ (NEGATIVE)
[2019-07-08] MEDS ORDERED: PRD20T PO (16:31)
[2019-07-08] MEDS ORDERED: TRAM-42 PO (16:31)
[2019-07-08 16:34] LABS: BACTERIA,URINE MODERATE /HPF
[2019-07-08] MEDS ORDERED: CEFU250T80 PO (16:39)
--- NOTE | 2019-07-08 16:51 | NUR ---
Vargas CARMONA AND TALKED WITH FAMILY ALLEN TOLLIVER
[2019-07-08 16:54] VITALS: BP 127/57
== END 2019-07-08 16:58 | disposition home or self-care (01) ==
LOC: EDUNIT# 14:33 → ER 14:34
DX: M54.16 Radiculopathy, lumbar region (principal); I10 Essential (primary) hypertension; E11.9 Type 2 diabetes mellitus without complications; I48.91 Unspecified atrial fibrillation; I25.10 Atherosclerotic heart disease of native coronary artery without angina pectoris; E78.00 Pure hypercholesterolemia, unspecified; J44.9 Chronic obstructive pulmonary disease, unspecified; Z95.0 Presence of cardiac pacemaker; Z79.82 Long term (current) use of aspirin; Z79.84 Long term (current) use of oral hypoglycemic drugs; Z77.22 Contact with and (suspected) exposure to environmental tobacco smoke (acute) (chronic)
CPT/HCPCS: 36415; 72131; 80053; 81000; 85025; 87088

== ENCOUNTER → 2020-01-31 | Day surgery (SDC) | payer MEDICARE ==
[~2020-01-31] VITALS: Ht 162.6 cm; Wt 51.0 kg
[2020-01-31] VITALS (10 sets, daily range): BP systolic 122–162; BP diastolic 56–114
[~2020-01-31] MED LIST changes: +ACET-78 PO; +AMLO-251 PO; -AMLO10TA7 PO; +ASPI-1238 PO; -ASPI-983 PO; +BACITRACIN INJECTION 50,000 UNIT, SODIUM CHLORIDE 0.9% IRRIGATIO 500 ML IR ONE; +CEFU250T80 PO; +HEParin (CATH LAB) 1,000 ML IV ONE; +LIDOCAINE 1% INJ 20 ML 20 ML VIAL ONE; +METF-865 PO; -METF500T19 PO; +MIDAZOLAM 5 MG/5 ML (VERSED) VIAL ONE; +NS IV 1000 ML 1,000 ML IV SCH; +NS IV 1000 ML 1,000 ML ONE; -PANT40TA3 PO; +PANT40TA52 PO; +PATIENT MAY USE OWN MEDS, ALL PO SCH; +PRD20T PO; +SITA1TAB2 PO; +TRAM-42 PO; +ceFAZolin INJECTION 1,000 MG ONE; +fentaNYL INJECTION 100 MCG/2 ML AMP ONE
[2020-01-31 08:40] LABS: HEMOGLOBIN 11.1 g/dL (13.3-17.7); MEAN PLATELET VOLUME 10.1 fL (9.0-12.2)
[2020-01-31 08:54] LABS: INR 1.1 (0.8-1.4); PROTHROMBIN TIME PATIENT 14.9 SEC (12.2-14.7)
[2020-01-31 09:05] LABS: ALANINE AMINOTRANSFERASE 18 U/L (0-55); ALBUMIN 3.9 GM/DL (3.2-4.5); ALKALINE PHOSPHATASE 62 U/L (40-136); BILIRUBIN,TOTAL 0.5 MG/DL (0.1-1.0); BUN/CREATININE RATIO 24; CALCIUM 9.2 MG/DL (8.5-10.1); CARBON DIOXIDE 19 MMOL/L (21-32); CHLORIDE 105 MMOL/L (98-107); CHOLESTEROL 87 MG/DL (< 200); CREATININE SERUM 0.82 MG/DL (0.60-1.30); GFR ESTIMATED > 60; GLUCOSE 150 MG/DL (70-105); HDL CHOLESTEROL 36 MG/DL (40-60); POTASSIUM 4.1 MMOL/L (3.6-5.0); SODIUM 138 MMOL/L (135-145); TOTAL PROTEIN 7.1 GM/DL (6.4-8.2); TRIGLYCERIDES 102 MG/DL (<150); VLDL CHOLESTEROL 20 MG/DL (5-40)
--- NOTE | 2020-01-31 11:38 | Cardiac Procedure Note-CS/ASA ---
Pre-Procedure Note Pre-Op Procedure Note H&P Reviewed The H&P was reviewed, patient examined and no changes noted. Date H&P Reviewed: Jan 31, 2020 Time H&P Reviewed: 10:30 Conscious Sedation Pre-Proced Time 10:30 ASA Score 3 For ASA 3 and 4: Consider anesthesia and medical clearance. Also, for patients with a history of failed moderate sedation consider anesthesia. Airway Lungs Heart ASA score ASA 1: a normal healthy patient ASA 2: a patient with a mild systemic disease (mid diabetes, controlled hypertension, obesity ASA 3: a patient with a severe systemic disease that limits activity (angina, COPD, prior Myocardial infarction) ASA 4: a patient with an incapacitating disease that is a constant threat to life (CHF, renal failure) ASA 5: a moribund patient not expected to survive 24 hrs. (ruptured aneurysm) ASA 6: a declared brain- patient whose organs are being harvested. For emergent operations, add the letter E after the classification Mallampati Classification Grade 2 Sedation Plan Analgesia, Amnesia, Plan communicated to team members, Discussed options with patient/fam, Discussed risks with patient/fam The patient is an appropriate candidate to undergo the planned procedure, sedation, and anesthesia. The patient immediately re-assessed prior to indication. VELASQUEZ HANNON MD FACP FAC CCDS Jan 31, 2020 11:38
--- NOTE | 2020-01-31 11:47 | Discharge Inst-Cardiology ---
Discharge Inst-Cardiac Discharge Medications New Medications: Cefuroxime Axetil (Cefuroxime) 250 Mg Tablet 250 MG PO BID, #10 TAB 0 Refills Continued Medications: Acetaminophen (Acetaminophen) 500 Mg Tablet 500 MG PO Q8H PRN for PAIN-MODERATE (5-7), TAB Aspirin (Aspirin EC) 81 Mg Tablet.dr 81 MG PO DAILY, TAB Finasteride (Finasteride) 5 Mg Tablet 5 MG PO DAILY, TAB Lisinopril (Lisinopril) 10 Mg Tablet 10 MG PO DAILY, #30 TAB 5 Refills Metformin HCl (Metformin HCl ER) 500 Mg Tab.er.24h 500 MG PO HS Metoprolol Succinate (Metoprolol Succinate) 50 Mg Tab.er.24h 50 MG PO HS, #30 TAB 5 Refills Simvastatin (Simvastatin) 40 Mg Tablet 40 MG PO HS, TAB Sitagliptin Phos/Metformin HCl (Janumet 50-500 mg Tablet) 1 Tab Tablet 1 TAB PO DAILY, TAB Tamsulosin HCl (Flomax) 0.4 Mg Cap 0.4 MG PO DAILY, CAP Patient Instructions Patient Instructions: F/u at Dr Barrientos's office for wound check on 02/03/20 F/u at Dr Barrientos's office for doctor visit in one month Orders-Post D/C & Referrals Pneu Vac Indicated: Yes VELASQUEZ BARIRENTOS MD FACP FAC CCDS Jan 31, 2020 11:47
--- NOTE | 2020-01-31 16:15 | OPERATIVE REPORT ---
DATE OF SERVICE: 01/31/2020 PREOPERATIVE DIAGNOSIS: Dual chamber pacemaker at elective replacement indicator. POSTOPERATIVE DIAGNOSIS: Dual chamber pacemaker at elective replacement indicator. PROCEDURE: Pulse generator change. INDICATIONS: The patient is a 79-year-old man, who has had a dual chamber pacemaker implantation for complete heart block. He recently was found to have reached elective replacement indicator. Informed consent was obtained for pulse generator change. DESCRIPTION OF PROCEDURE: [facility] The left prepectoral area was prepared and draped in the usual sterile fashion. This is the site of previous pacemaker implantation. We used sharp and blunt dissection to open the pacemaker pocket and to remove the pacemaker from the pocket while leaving the leads behind. The leads were attached to a new dual chamber device. The pacemaker removed is a Medtronic Adapta DR pacemaker with serial #[id number]. The pacemaker implanted is Medtronic model W3DR01, serial #[id number]. The leads were tested through the device and found to be functioning normally. Atrial lead threshold is 323 ohms and P-wave amplitude is 2.1 millivolts. R-wave amplitude is not measured because of lack of an adequate underlying ventricular rhythm. The ventricular capture threshold is 0.4 milliseconds, 0.5 volts. The pacemaker was placed in the previous pocket after the pocket had been thoroughly irrigated with an antibiotic solution and good hemostasis was assured. The wound edges was closed in 2 layers using 3.0 Vicryl. The patient tolerated the procedure well. Job ID: [id number] DocumentID: [id number] Dictated Date: 01/31/2020 11:32:10 [employer] Date: 01/31/2020 16:15:12 Dictated By: VELASQUEZ HANNON MD, MA, FACP, FACC,
== END ==
LOC: CATH 10:00 → SDC 12:07
PROVIDERS: ATTEND Internal Medicine Cardiovascular Disease
DX: Z45.010 Encounter for checking and testing of cardiac pacemaker pulse generator [battery] (principal); I44.2 Atrioventricular block, complete; I45.10 Unspecified right bundle-branch block; I65.21 Occlusion and stenosis of right carotid artery; I25.10 Atherosclerotic heart disease of native coronary artery without angina pectoris; I48.0 Paroxysmal atrial fibrillation; E87.5 Hyperkalemia; I11.0 Hypertensive heart disease with heart failure; I50.32 Chronic diastolic (congestive) heart failure; E11.65 Type 2 diabetes mellitus with hyperglycemia; E11.51 Type 2 diabetes mellitus with diabetic peripheral angiopathy without gangrene; F17.210 Nicotine dependence, cigarettes, uncomplicated; E66.9 Obesity, unspecified; Z68.1 Body mass index [BMI] 19.9 or less, adult; Z79.82 Long term (current) use of aspirin; Z79.84 Long term (current) use of oral hypoglycemic drugs; Z79.899 Other long term (current) drug therapy; Z82.3 Family history of stroke
CPT/HCPCS: 33228; 80053; 80061; 85027; 85610; 85730; 87081; C1785; 36415

== ENCOUNTER → 2020-03-05 | Outpatient (CLI) | payer MEDICARE ==
[~2020-03-05] MED LIST changes: -BACITRACIN INJECTION 50,000 UNIT, SODIUM CHLORIDE 0.9% IRRIGATIO 500 ML IR ONE; -HEParin (CATH LAB) 1,000 ML IV ONE; -LIDOCAINE 1% INJ 20 ML 20 ML VIAL ONE; -MIDAZOLAM 5 MG/5 ML (VERSED) VIAL ONE; -NS IV 1000 ML 1,000 ML IV SCH; -NS IV 1000 ML 1,000 ML ONE; -PATIENT MAY USE OWN MEDS, ALL PO SCH; -ceFAZolin INJECTION 1,000 MG ONE; -fentaNYL INJECTION 100 MCG/2 ML AMP ONE
--- NOTE | 2020-03-05 11:14 | Diagnostic Imaging Report ---
PROCEDURE: CT urinary tract, rule out kidney stone. TECHNIQUE: Multiple contiguous axial images were obtained through the abdomen and pelvis without the use of intravenous contrast. Auto Exposure Controls were utilized during the CT exam to meet ALARA standards for radiation dose reduction. INDICATION: Gross hematuria with right lower quadrant pain. COMPARISON: Comparison is made with prior CT from 06/03/2018. FINDINGS: Lung bases demonstrate some infiltrate or atelectasis in the right middle lobe. Patient has developed a small right and trace left pleural effusion. The liver is unremarkable. There appear to be small stones within the gallbladder. No biliary ductal dilatation is seen. Pancreas and spleen are unremarkable. No adrenal mass is identified. There is a low-density lesion in the upper pole of the right kidney approximately 5 cm in size. Abnormal soft tissue has developed in the right periaortic region at the level of the kidneys. Area of soft tissue measures approximately 7.2 x 5.0 cm. This may represent lymphadenopathy. The left periaortic location is unremarkable. Aorta is calcified but nonaneurysmal. Small and large bowel loops are normal in caliber. Bladder is decompressed. Prostate appears to be stable. There is no free fluid in the pelvis. There does appear to be trace free fluid surrounding the liver. Fem-fem bypass graft is identified in the anterior subcutaneous tissues. No definite pelvic lymphadenopathy is seen. IMPRESSION: 1. Abnormal soft tissue mass in the central retroperitoneum in the right periaortic location, new since exam from 06/03/2018. Post contrast study would be useful for better characterization. 2. Development of small right and trace left pleural effusion. 3. Probable cholelithiasis. 4. No other significant abnormality is detected. Dictated by: Dictated on workstation # [id number]
== END ==
LOC: RAD 09:51
PROVIDERS: ATTEND Family Medicine
DX: R31.0 Gross hematuria (principal); R19.09 Other intra-abdominal and pelvic swelling, mass and lump; R10.32 Left lower quadrant pain; R63.4 Abnormal weight loss
CPT/HCPCS: 74176

== ENCOUNTER → 2020-03-28 | Outpatient (CLI) | payer MEDICARE ==
--- NOTE | 2020-03-28 11:15 | Diagnostic Imaging Report ---
PROCEDURE: Ultrasound abdomen complete. INDICATION: Right renal mass. TECHNIQUE: Multiple real-time grayscale images were obtained of the abdomen in various projections. The prior renal ultrasound exam of 08/05/2017 noted a benign-appearing 4.3 x 3.4 x 4.5 cm cyst along the superior pole of the right kidney. That cyst was also again identified on the recent CT abdomen/pelvis exam of 03/05/2020 and did not appear to have changed. On this exam the cyst along the superior pole of the right kidney seen previously is again evident and seems stable. This cyst has a generally benign appearance. The right kidney itself is unremarkable as is the left kidney. The CT exam also identified an abnormal soft tissue mass in the central retroperitoneum in the right periaortic location. On this study interposed between the right kidney and the aorta there is a heterogeneous fairly well-circumscribed hypoechoic mass measuring 7.0 x 6.9 x 6.4 cm. This mass does not appear to be hypervascular and does show areas of diminished echogenicity centrally. This finding is of uncertain etiology but worrisome for neoplasm. PET CT would be recommended for further study. There is sludge within the gallbladder but the gallbladder wall does not seem to be abnormally thickened and there is no sign of acute cholecystitis. The common bile duct is not dilated. The liver, spleen, pancreas, aorta and inferior vena cava show no sign of an acute abnormality. IMPRESSION: 1. There is a heterogeneous mass interposed between the right kidney and the aorta. This finding is of uncertain etiology but worrisome for malignancy. Recommendations as above. 2. There is no acute abnormality of the abdomen noted otherwise. 3. The cyst along the superior pole the right kidney seen previously is again evident and no different. Dictated by: Dictated on workstation # [id number]
== END ==
LOC: RAD 10:00
PROVIDERS: ATTEND Urology
DX: N28.89 Other specified disorders of kidney and ureter (principal); N28.1 Cyst of kidney, acquired
CPT/HCPCS: 76700

== ENCOUNTER 2020-04-06 17:50 | Inpatient (IN) | payer MEDICARE ==
[~2020-04-06] VITALS: Ht 167 cm; Wt 60.2 kg
[2020-04-06] MEDS ORDERED: LACTATED RINGERS 1,000 ML IV ONE (18:00)
--- NOTE | 2020-04-06 18:08 | ED General ---
General Chief Complaint: General Problems/Pain Stated Complaint: WEAKNESS Source of Information: Patient Exam Limitations: No Limitations History of Present Illness Date Seen by Provider: Apr 06, 2020 Time Seen by Provider: 18:04 Initial Comments To ER with general weakness. He fell last night while going to the kitchen and was able to crawl from the kitchen floor into the living room where he spent the rest of the night on the floor. He is lost about 25 pounds over the past year. He was found to have a mass on the right kidney 3 weeks ago during an outpatient CT scan. He subsequently followed with a [employer] agent in [place] but the details of that appointment and plan of care are unknown. States that he has had frequent falls and general weakness that has been progressively worsening over the past few weeks. He was found on the floor of his home by a friend today. He lives at home alone. Timing/Duration: 1-2 Days Severity: Moderate Associated Systoms: Weakness Allergies and Home Medications Allergies Coded Allergies: No Known Drug Allergies (Unverified , 06/02/10) Home Medications Acetaminophen 500 Mg Tablet, 500 MG PO Q8H PRN for PAIN-MODERATE (5-7), (Reported) Aspirin 81 Mg Tablet.dr, 81 MG PO DAILY, (Reported) Cefuroxime Axetil 250 Mg Tablet, 250 MG PO BID Prescribed by: VELASQUEZ HANNON on 01/31/20 1145 Finasteride 5 Mg Tablet, 5 MG PO DAILY, (Reported) Lisinopril 10 Mg Tablet, 10 MG PO DAILY Prescribed by: CRIS MCKEON on 05/12/19 0956 Metformin HCl 500 Mg Tab.er.24h, 500 MG PO HS, (Reported) Metoprolol Succinate 50 Mg Tab.er.24h, 50 MG PO HS Prescribed by: GLADYS ORONA on 05/13/19 1019 Simvastatin 40 Mg Tablet, 40 MG PO HS, (Reported) Sitagliptin Phos/Metformin HCl 1 Tab Tablet, 1 TAB PO DAILY, (Reported) Tamsulosin HCl 0.4 Mg Cap, 0.4 MG PO DAILY, (Reported) Patient Home Medication List Home Medication List Reviewed: Yes Review of Systems Review of Systems Constitutional: see HPI, weakness EENTM: see HPI Respiratory: no symptoms reported Cardiovascular: no symptoms reported Genitourinary: no symptoms reported Musculoskeletal: no symptoms reported Skin: no symptoms reported Psychiatric/Neurological: No Symptoms Reported Past Gqwlugy-Waevur-Imitof Hx Patient Social History Alcohol Beverage of Choice: Beer Type Used: Cigarettes 2nd Hand Smoke Exposure: Yes Recent Hopitalizations: Yes Immunizations Up To Date Tetanus Booster (TDap): Unknown Seasonal Allergies Seasonal Allergies: No Past Medical History Surgeries: Yes Pacemaker Respiratory: No Pneumonia, COPD Currently Using CPAP: No Currently Using BIPAP: No Cardiac: Yes (PACEMAKER, congestive heart failure) Atrial Fibrillation, Coronary Artery Disease, High Cholesterol, Hypertension Neurological: Yes TIA Reproductive Disorders: No Genitourinary: Yes Prostate Problems, UTI-Chronic Gastrointestinal: No Gastroesophageal Reflux Musculoskeletal: Yes Degenerate Disk Disease, Arthritis, Back Injury Endocrine: Yes Diabetes, Non-Insulin dep HEENT: Yes Cataract Hearing Impairment: Hard of Hearing Cancer: No Psychosocial: No Integumentary: No Blood Disorders: No Family Medical History Cancer, Hypertension, Stroke Physical Exam Vital Signs Vital Signs - First Documented 04/06/20 17:56 Temp 36.3 Pulse 64 Resp 18 B/P (MAP) 194/84 (120) Pulse Ox 100 O2 Delivery Room Air Capillary Refill : Height, Weight, BMI Height: 5'4.00" Weight: 171lbs. 0.0oz. 77.225082ym; 19.28 BMI Method:Stated General Appearance: No Apparent Distress, WD/WN, Chronically ill, Thin, Other (Frail) Eyes: Bilateral Eye Normal Inspection, Bilateral Eye PERRL, Bilateral Eye EOMI Neck: Full Range of Motion, Normal Inspection Respiratory: No Accessory Muscle Use, No Respiratory Distress Gastrointestinal: Normal Bowel Sounds, Non Tender, Soft Extremity: Normal Range of Motion, Other (3+ pitting edema of the feet, 2+ pitting edema of the lower extremities up to the mid tibia bilaterally) Neurologic/Psychiatric: Alert Skin: Normal Color, Warm/Dry Focused Exam Lactate Level 04/06/20 18:32: Lactic Acid Level 1.82 Lactic Acid Level Laboratory Tests Test 04/06/20 18:32 Lactic Acid Level 1.82 MMOL/L (0.50-2.00) Progress/Results/Core Measures Suspected Sepsis SIRS Temperature: Pulse: Respiratory Rate: Laboratory Tests 04/06/20 18:00: White Blood Count 18.4H Blood Pressure / Mean: 04/06/20 18:32: Lactic Acid Level 1.82 Laboratory Tests 04/06/20 18:00: Creatinine 0.73, Platelet Count 420H, Total Bilirubin 0.7 Results/Orders Lab Results Laboratory Tests Test 04/06/20 18:00 04/06/20 18:09 04/06/20 18:32 Range/Units White Blood Count 18.4 H 4.3-11.0 10^3/uL Red Blood Count 4.02 L 4.30-5.52 10^6/uL Hemoglobin 11.0 L 13.3-17.7 g/dL Hematocrit 35 L 40-54 % Mean Corpuscular Volume 88 80-99 fL Mean Corpuscular Hemoglobin 27 25-34 pg Mean Corpuscular Hemoglobin Concent 31 L 32-36 g/dL Red Cell Distribution Width 15.9 H 10.0-14.5 % Platelet Count 420 H 130-400 10^3/uL Mean Platelet Volume 9.6 9.0-12.2 fL Immature Granulocyte % (Auto) 1 % Neutrophils (%) (Auto) 92 H 42-75 % Lymphocytes (%) (Auto) 4 L 12-44 % Monocytes (%) (Auto) 4 0-12 % Eosinophils (%) (Auto) 0 0-10 % Basophils (%) (Auto) 0 0-10 % Neutrophils # (Auto) 16.9 H 1.8-7.8 10^3/uL Lymphocytes # (Auto) 0.7 L 1.0-4.0 10^3/uL Monocytes # (Auto) 0.6 0.0-1.0 10^3/uL Eosinophils # (Auto) 0.0 0.0-0.3 10^3/uL Basophils # (Auto) 0.0 0.0-0.1 10^3/uL Immature Granulocyte # (Auto) 0.1 0.0-0.1 10^3/uL Neutrophils % (Manual) 96 % Lymphocytes % (Manual) 2 % Monocytes % (Manual) 2 % Blood Morphology Comment NORMAL Sodium Level 142 135-145 MMOL/L Potassium Level 2.4 *L 3.6-5.0 MMOL/L Chloride Level 100 98-107 MMOL/L Carbon Dioxide Level 25 21-32 MMOL/L Anion Gap 17 H 5-14 MMOL/L Blood Urea Nitrogen 18 7-18 MG/DL Creatinine 0.73 0.60-1.30 MG/DL Estimat Glomerular Filtration Rate > 60 BUN/Creatinine Ratio 25 Glucose Level 116 H 70-105 MG/DL Calcium Level 8.8 8.5-10.1 MG/DL Corrected Calcium 9.4 8.5-10.1 MG/DL Magnesium Level 1.5 L 1.6-2.4 MG/DL Total Bilirubin 0.7 0.1-1.0 MG/DL Aspartate Amino Transf (AST/SGOT) 31 5-34 U/L Alanine Aminotransferase (ALT/SGPT) 20 0-55 U/L Alkaline Phosphatase 80 40-136 U/L Total Creatine Kinase 365 H 30-200 U/L B-Type Natriuretic Peptide 433.0 H <100.0 PG/ML Total Protein 6.3 L 6.4-8.2 GM/DL Albumin 3.2 3.2-4.5 GM/DL Procalcitonin 0.12 H <0.10 NG/ML Thyroid Stimulating Hormone (TSH) 2.24 0.35-4.94 UIU/ML Free Thyroxine 1.11 0.70-1.48 NG/DL Urine Color YELLOW Urine Clarity CLEAR Urine pH 6.0 5-9 Urine Specific Spiro 1.025 H 1.016-1.022 Urine Protein 3+ H NEGATIVE Urine Glucose (UA) NEGATIVE NEGATIVE Urine Ketones 1+ H NEGATIVE Urine Nitrite NEGATIVE NEGATIVE Urine Bilirubin 1+ H NEGATIVE Urine Urobilinogen 0.2 < = 1.0 MG/DL Urine Leukocyte Esterase NEGATIVE NEGATIVE Urine RBC (Auto) 3+ H NEGATIVE Urine RBC 25-50 H /HPF Urine WBC 2-5 /HPF Urine Crystals PRESENT H /LPF Urine Amorphous Sediment FEW EUGENE URATES H /LPF Urine Bacteria TRACE /HPF Urine Casts NONE /LPF Urine Mucus NEGATIVE /LPF Urine Culture Indicated NO Lactic Acid Level 1.82 0.50-2.00 MMOL/L My Orders Orders - ARIANNA SAUER APRN Cbc With Automated Diff (04/06/20 18:01) Comprehensive Metabolic Panel (04/06/20 18:01) Thyroid Stimulating Hormone (04/06/20 18:01) Free T4 (Free Thyroxine) (04/06/20 18:01) Ua Culture If Indicated (04/06/20 18:01) Chest 1 View, Ap/Pa Only (04/06/20 18:01) BNP (04/06/20 18:03) Ekg Tracing (04/06/20 18:03) Ct Head Wo (04/06/20 18:03) Lactated Ringers (Lr 1000 Ml Iv Solution (04/06/20 18:00) Ct Abdomen/Pelvis W (04/06/20 18:09) Manual Differential (04/06/20 18:00) Procalcitonin (Pct) (04/06/20 18:19) Blood Culture (04/06/20 18:19) Lactic Acid Analyzer (04/06/20 18:19) Rasmussen Cath (04/06/20 18:19) Magnesium (04/06/20 18:30) Potassium Chloride (Tablet) (Klor Con Ta (04/06/20 18:30) Potassium Cl 10meq/50ml Ivpb (Kcl 10 Meq (04/06/20 18:30) Iohexol Injection (Omnipaque 350 Mg/Ml 1 (04/06/20 18:45) Received Contrast (Hold Metformin- Contr (04/06/20 18:45) Ns (Ivpb) (Sodium Chloride 0.9% Ivpb Bag (04/06/20 18:45) Sodium Chloride Flush (Catheter Flush Sy (04/06/20 18:45) Magnesium Oxide Tablet (Mag Ox Tablet) (04/06/20 19:00) Magnesium 1 Gm/100 Ml Ivpb (Magnesium Siddiqui (04/06/20 19:00) Creatine Kinase (04/06/20 20:02) Amlodipine Tablet (Norvasc Tablet) (04/06/20 20:15) Medications Given in ED Current Medications Medications Dose Ordered Sig/Logan Route Start Time Stop Time Status Last Admin Dose Admin Iohexol 100 ml ONCE ONCE IV 04/06/20 18:45 04/06/20 18:46 DC 04/06/20 19:07 69 ML Lactated Ringer's 1,000 ml @ ud STK-MED ONCE IV 04/06/20 18:00 04/06/20 18:05 DC 04/06/20 18:05 1,000 MLS/HR Magnesium Oxide 400 mg ONCE ONCE PO 04/06/20 19:00 04/06/20 19:01 DC 04/06/20 19:32 400 MG Magnesium Sulfate/ Dextrose 100 ml @ 100 mls/hr ONCE ONCE IV 04/06/20 19:00 04/06/20 19:59 DC 04/06/20 19:32 100 MLS/HR Potassium Chloride 40 meq ONCE ONCE PO 04/06/20 18:30 04/06/20 18:31 DC 04/06/20 18:41 40 MEQ Sodium Chloride 10 ml NEEDED PRN IV 04/06/20 18:45 04/06/20 19:07 10 ML Sodium Chloride 100 ml ONCE ONCE IV 04/06/20 18:45 04/06/20 18:46 DC 04/06/20 19:07 80 ML Vital Signs/I&O 04/06/20 04/06/20 04/06/20 04/06/20 17:56 19:11 20:30 20:39 Temp 36.3 Pulse 64 72 60 60 Resp 18 18 18 16 B/P (MAP) 194/84 (120) 194/84 179/80 179/80 (113) Pulse Ox 100 100 99 98 O2 Delivery Room Air Room Air Room Air Room Air Capillary Refill : Diagnostic Imaging Diagonstic Imaging: Xray, CT Comments NAME: [facility]IRSTIN [facility] REC#: [id number] PT STATUS: REG ER : 1940 PHYSICIAN: ARIANNA SAUER APRN ADMIT DATE: 04/06/20/ER Draft Date of Exam:04/06/20 CT HEAD WO PROCEDURE: CT head without contrast. TECHNIQUE: Multiple contiguous axial images were obtained through the brain without the use of intravenous contrast. Auto Exposure Controls were utilized during the CT exam to meet ALARA standards for radiation dose reduction. INDICATION: Progressive weakness and fall. COMPARISON: 07/28/2018. CT HEAD: CT images of the head were obtained. FINDINGS: Ventricles and sulci are within normal limits for size. There is no intracranial hemorrhage identified. There is no abnormal mass effect or shift of midline structures. IMPRESSION: Unremarkable CT of the head. Dictated on workstation # [id number] Dict: 04/06/201922 Trans: 04/06/201926 PJE [id number] Interpreted by: BEATRICE KEENE MD Electronically signed by: NAME[facility] [id number] PT STATUS: REG ER : 1940 PHYSICIAN: ARIANNA SAUER APRN ADMIT DATE: 04/06/20/ER Draft Date of Exam:04/06/20 CT ABDOMEN/PELVIS W PROCEDURE: CT abdomen and pelvis with contrast. TECHNIQUE: Multiple contiguous axial images were obtained through the abdomen and pelvis after administration of intravenous contrast. Auto Exposure Controls were utilized during the CT exam to meet ALARA standards for radiation dose reduction. All CT scans use one or more of the following dose optimizing techniques: automated exposure control, MA and/or KvP adjustment based on patient size and exam type or iterative reconstruction. INDICATION: Fall and renal mass. COMPARISON: 03/05/2020. FINDINGS: There has been further increase in moderate right and small left pleural effusion with mild increase in edema and/or pneumonitis in the adjacent right lower lobe. Below the diaphragm, there has been development of mild abdominal ascites. No definite focal hepatic or splenic lesion is identified. Gallbladder and pancreas also appear to be stable and unremarkable. Without evidence of adrenal or left renal lesion. The dominant cyst in the upper pole of the right kidney now measures 5.0 x 4.2 cm similar to previous study with continued heterogeneous centrally low dense mass in the right periaortic retroperitoneum which appears to encircle the right main renal artery. This measures up to 7.4 x 4.6 cm. There is also mass filling the right renal collecting system extending into the upper pole the right kidney. There has been mild increase in central retroperitoneal adenopathy with left periaortic lymph node reaching 1.7 cm in diameter. The urinary bladder is decompressed around a Rasmussen catheter. There is extensive aortoiliac atherosclerotic calcification. 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 There is left convexity curvature of the lumbar spine. Compression fracture deformities of lumbar vertebrae have not appreciably changed. IMPRESSION: 1. Increasing pleural fluid and basilar atelectasis, edema and/or pneumonitis in the visualized lung watkins. 2. There does appear to be right upper lobe renal mass with extension into the right renal hilum. This may represent renal cell carcinoma or transitional cell carcinoma with extensive, progressive central retroperitoneal adenopathy, as described. 3. Additional findings include what appears to be occlusion of the left iliac artery and clinical correlation would be of use. Dictated on workstation # [id number] Dict: 04/06/201914 Trans: 04/06/201925 [facility] [id number] Interpreted by: BEATRICE KEENE MD Electronically signed by: NAME: KIRSTIN [facility] REC#: [id number] PT STATUS: ADM IN : 1940 PHYSICIAN: ARIANNA SAUER APRN ADMIT DATE: 04/06/20 Draft Date of Exam:04/06/20 CHEST 1 VIEW, AP/PA ONLY INDICATION: Renal mass and progressive weakness. EXAMINATION: AP view of the chest was obtained. COMPARISON: Study of 05/09/2019. FINDINGS: Heart size and pulmonary vascularity are at the upper limits of normal. There is mild increased density in the perihilar regions, greater on the right, with rounded focal parenchymal density in the upper lobe of the right lung at the level of the aortic arch. No pneumothorax is seen. IMPRESSION: Increasing perihilar densities could be due to edema or pneumonitis. Possibility of focal infiltrate or mass in the right upper lobe is not excluded. This could be followed with short-term radiographic follow-up or CT imaging. Dictated on workstation # [id number] Dict: 04/06/202020 Trans: 04/06/202032 [facility] [id number] Interpreted by: BEATRICE KEENE MD Electronically signed by: Departure Communication (Admissions) Discussed the adverse changes seen on CT with the patient and then with his brother over the telephone. Discussed with them that this weight loss, general weakness, progressive mass in the retroperitoneum supports the theory of a rather aggressive cancer though which type of cancer is not entirely clear yet. He states "I thought it was just a cyst...this means Im dying huh...I was planning on living to 100". Discussed with him that given his frail state he needs to be thinking about how aggressive he wants to be with treatment as while it may prolong his life it may not result in a meaningful quality of that life. Discussed with him that he needs to have a conversation with oncology about treatment recommendations. His procalcitonin is normal, his lactic acid is normal, he is afebrile and has no infectious symptoms. Do not see need for antibiotics at this point despite the leukocytosis which is likely hemoconcentration from intravascular volume depletion as he has not had anything to drink since this time last night as well as reactive to the suspected malignancy.. Impression Primary Impression: General weakness Additional Impressions: Hypokalemia Retroperitoneal mass Disposition: ADMITTED INPATIENT Condition: Stable Admissions Decision to Admit Reason: Admit from ER (General) Decision to Admit/Date: Apr 06, 2020 Time/Decision to Admit Time: 18:33 Departure-Patient Inst. Referrals: GLADYS ORONA DO (PCP/Family) Primary Care Physician ARIANNA SAUER APRN Apr 06, 2020 18:08
[2020-04-06 18:12] LABS: BASOPHILS % (AUTO) 0 % (0-10); EOSINOPHILS % (AUTO) 0 % (0-10); HEMATOCRIT 35 % (40-54); LYMPHOCYTES # (AUTO) 0.7 10^3/uL (1.0-4.0); LYMPHOCYTES % (AUTO) 4 % (12-44); MEAN CORPUSCULAR HEMOGLOBIN 27 pg (25-34); MEAN CORPUSCULAR HGB CONC 31 g/dL (32-36); MEAN CORPUSCULAR VOLUME 88 fL (80-99); MEAN PLATELET VOLUME 9.6 fL (9.0-12.2); MONOCYTES # (AUTO) 0.6 10^3/uL (0.0-1.0); MONOCYTES % (AUTO) 4 % (0-12); NEUTROPHILS # (AUTO) 16.9 10^3/uL (1.8-7.8); NEUTROPHILS % (AUTO) 92 % (42-75); PLATELET COUNT 420 10^3/uL (130-400); WHITE BLOOD COUNT 18.4 10^3/uL (4.3-11.0)
[2020-04-06 18:15] LABS: CLARITY,URINE CLEAR; COLOR,URINE YELLOW; GLUCOSE, URINE (UA) NEGATIVE (NEGATIVE); KETONES,URINE 1+ (NEGATIVE); LEUKOCYTE ESTERASE ,URINE NEGATIVE (NEGATIVE); NITRITE,URINE NEGATIVE (NEGATIVE); PROTEIN,URINE 3+ (NEGATIVE)
[2020-04-06 18:21] LABS: ALBUMIN 3.2 GM/DL (3.2-4.5)
[2020-04-06 18:22] LABS: CHLORIDE 100 MMOL/L (98-107); SODIUM 142 MMOL/L (135-145)
[2020-04-06 18:23] LABS: BILIRUBIN,URINE 1+ (NEGATIVE)
[2020-04-06 18:23] LABS: CALCIUM 8.8 MG/DL (8.5-10.1)
[2020-04-06 18:24] LABS: GLUCOSE 116 MG/DL (70-105); TOTAL PROTEIN 6.3 GM/DL (6.4-8.2)
--- NOTE | 2020-04-06 18:24 | NUR ---
Pt arrives by EMS with c/o progressive weakness and fall; pt reports he fell last night and has been laying on his kitchen floor since because he was unable to get up. Pt is A&Ox4, has moderate, equal radio dispatcher to upper extremities and is moving both lower ext equally. Pt denies injuries from the fall. 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 Pt also has noted skin breakdown on his coccyx upon arrival. IV in place LICENSED PHYSICAL THERAPIST per EMS. Blood drawn and sent to lab. Urine obtained from [place] and sent to lab. Pupils are pinpoint but equal.
[2020-04-06 18:25] LABS: RBC,URINE 25-50 /HPF
[2020-04-06 18:25] LABS: CARBON DIOXIDE 25 MMOL/L (21-32)
[2020-04-06 18:26] LABS: BILIRUBIN,TOTAL 0.7 MG/DL (0.1-1.0)
[2020-04-06 18:27] LABS: ALKALINE PHOSPHATASE 80 U/L (40-136)
[2020-04-06 18:28] LABS: CREATININE SERUM 0.73 MG/DL (0.60-1.30); GFR ESTIMATED > 60
[2020-04-06 18:29] LABS: BUN/CREATININE RATIO 25
[2020-04-06 18:29] LABS: AMORPHOUS SEDIMENT,UR FEW AMOR URATES /LPF; BACTERIA,URINE TRACE /HPF
[2020-04-06 18:30] LABS: ALANINE AMINOTRANSFERASE 20 U/L (0-55); POTASSIUM 2.4 MMOL/L (3.6-5.0)
[2020-04-06] MEDS ORDERED: KCL 10 MEQ TAB (MICRO K) PO ONE (18:30)
[2020-04-06] MEDS ORDERED: IOHEXOL 350 MG/ML 100 ML (OMNIPAQUE 350) VIAL IV ONE (18:45)
[2020-04-06] MEDS ORDERED: HOLD METFORMIN - RECEIVED CONTRAST 20 ML VIAL IV SCH (18:45)
[2020-04-06] MEDS ORDERED: CATHETER FLUSH 10 ML SYR IV PRN (18:45)
[2020-04-06] MEDS ORDERED: NS 100 ML (IVPB) BAG IV ONE (18:45)
[2020-04-06 18:47] LABS: LYMPHOCYTES % (MANUAL) 2 %; MONOCYTES % (MANUAL) 2 %; NEUTROPHILS % (MANUAL) 96 %; RBC MORPH NORMAL
[2020-04-06 18:50] LABS: FREE T4 (FREE THYROXINE) 1.11 NG/DL (0.70-1.48)
--- NOTE | 2020-04-06 18:50 | NUR ---
Pt to CT by cart.
[2020-04-06] MEDS ORDERED: MAGNESIUM OXIDE (MAG-OX)400 MG TAB PO ONE (19:00)
[2020-04-06] MEDS ORDERED: MAGNESIUM 1 GM/100 ML IVPB 100 ML IV ONE (19:00)
[2020-04-06] MEDS: POTASSIUM CL 10MEQ/50ML IVPB 50 ML IV SCH ×2 (19:23→20:05)
--- NOTE | 2020-04-06 19:26 | Diagnostic Imaging Report ---
PROCEDURE: CT abdomen and pelvis with contrast. TECHNIQUE: Multiple contiguous axial images were obtained through the abdomen and pelvis after administration of intravenous contrast. Auto Exposure Controls were utilized during the CT exam to meet ALARA standards for radiation dose reduction. All CT scans use one or more of the following dose optimizing techniques: automated exposure control, MA and/or KvP adjustment based on patient size and exam type or iterative reconstruction. INDICATION: Fall and renal mass. COMPARISON: 03/05/2020. FINDINGS: There has been further increase in moderate right and small left pleural effusion with mild increase in edema and/or pneumonitis in the adjacent right lower lobe. Below the diaphragm, there has been development of mild abdominal ascites. No definite focal hepatic or splenic lesion is identified. Gallbladder and pancreas also appear to be stable and unremarkable. Without evidence of adrenal or left renal lesion. The dominant cyst in the upper pole of the right kidney now measures 5.0 x 4.2 cm similar to previous study with continued heterogeneous centrally low dense mass in the right periaortic retroperitoneum which appears to encircle the right main renal artery. This measures up to 7.4 x 4.6 cm. There is associated resorption and probable destruction of L2 vertebral body. There is also mass filling the right renal collecting system extending into the upper pole of the right kidney. There has been mild increase in central retroperitoneal adenopathy with left periaortic lymph node reaching 1.7 cm in diameter. The urinary bladder is decompressed around a Rasmussen catheter. There is extensive aortoiliac atherosclerotic calcification. 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 There does appear to be femoral to femoral bypass. There is left convexity curvature of the lumbar spine. Compression fracture deformities of lumbar vertebrae have not appreciably changed. IMPRESSION: 1. Increasing pleural fluid and basilar atelectasis, edema and/or pneumonitis in the visualized lung watkins. 2. There does appear to be right upper lobe renal mass with extension into the right renal hilum. This may represent renal cell carcinoma, lymphoma or transitional cell carcinoma with extensive, progressive central retroperitoneal adenopathy, as described. This includes area of probable bone infiltration or destruction at the L2 level. 3. Additional findings include what appears to be occlusion of the left iliac artery and clinical correlation would be of use. Dictated by: Dictated on workstation # [id number]
--- NOTE | 2020-04-06 19:28 | Diagnostic Imaging Report ---
PROCEDURE: CT head without contrast. TECHNIQUE: Multiple contiguous axial images were obtained through the brain without the use of intravenous contrast. Auto Exposure Controls were utilized during the CT exam to meet ALARA standards for radiation dose reduction. INDICATION: Progressive weakness and fall. COMPARISON: 07/28/2018. CT HEAD: CT images of the head were obtained. FINDINGS: Ventricles and sulci are within normal limits for size. There is no intracranial hemorrhage identified. There is no abnormal mass effect or shift of midline structures. IMPRESSION: Unremarkable CT of the head. Dictated by: Dictated on workstation # [id number]
--- NOTE | 2020-04-06 19:50 | NUR ---
Scott on the phone updating the brother of the patient.
[2020-04-06] MEDS ORDERED: amLODIPine 5 MG (NORVASC) TAB PO ONE (20:15)
--- NOTE | 2020-04-06 20:34 | Diagnostic Imaging Report ---
INDICATION: Renal mass and progressive weakness. EXAMINATION: AP view of the chest was obtained. COMPARISON: Study of 05/09/2019. FINDINGS: Heart size and pulmonary vascularity are at the upper limits of normal. There is mild increased density in the perihilar regions, greater on the right, with rounded focal parenchymal density in the upper lobe of the right lung at the level of the aortic arch. No pneumothorax is seen. IMPRESSION: Increasing perihilar densities could be due to edema or pneumonitis. Possibility of focal infiltrate or mass in the right upper lobe is not excluded. This could be followed with short-term radiographic follow-up or CT imaging. Dictated by: Dictated on workstation # [id number]
--- NOTE | 2020-04-06 21:10 | NUR ---
KIRSTIN LEE admitted to room 411-1, with an admitting diagnosis of HYPOKALEMIA, WEAKNESS, METASTATIC CA, on 04/06/20 from ED via CART, accompanied by STAFF. KIRSTIN LEE introduced to surroundings, call light, bed controls, phone, TV, temperature control, lights, meal times, smoking policy, visitor policy, side rail policy, bathrooms and showers. Patient Rights given to patient in the handbook.KIRSTIN LEE verbalizes understanding that [facility] is not responsible for the loss or damage to any personal effects or valuables that are kept in the patients posession during their hospitalization.
[2020-04-06] MEDS ORDERED: NS IV 1000 ML 1,000 ML ONE (21:20)
[2020-04-06] MEDS ORDERED: NS IV 1000 ML 1,000 ML IV SCH (21:45)
[2020-04-06] MEDS: MAGNESIUM 1 GM/100 ML IVPB 100 ML IV SCH (22:13)
[2020-04-06] MEDS: ENOXAPARIN 40 MG/0.4 ML (LOVENOX) SYR SC SCH (22:13)
[2020-04-06 22:24] VITALS: BP 182/78
[2020-04-06] MEDS ORDERED: AMLO-251 PO (22:26)
--- NOTE | 2020-04-06 22:31 | NUR ---
BP 182/78, HR 69 DR. CANSECO NOTIFIED, NEW ORDERS RECEIVED.
[2020-04-07] VITALS (9 sets, daily range): BP systolic 153–182; BP diastolic 62–80
[2020-04-07] MEDS: MAGNESIUM 1 GM/100 ML IVPB 100 ML IV SCH (00:44)
[2020-04-07 05:57] LABS: BASOPHILS % (AUTO) 0 % (0-10); EOSINOPHILS % (AUTO) 0 % (0-10); HEMATOCRIT 33 % (40-54); HEMOGLOBIN 10.1 g/dL (13.3-17.7); LYMPHOCYTES # (AUTO) 0.7 10^3/uL (1.0-4.0); LYMPHOCYTES % (AUTO) 4 % (12-44); MEAN CORPUSCULAR HEMOGLOBIN 27 pg (25-34); MEAN CORPUSCULAR HGB CONC 31 g/dL (32-36); MEAN CORPUSCULAR VOLUME 87 fL (80-99); MEAN PLATELET VOLUME 9.7 fL (9.0-12.2); MONOCYTES # (AUTO) 0.6 10^3/uL (0.0-1.0); MONOCYTES % (AUTO) 3 % (0-12); NEUTROPHILS # (AUTO) 16.1 10^3/uL (1.8-7.8); NEUTROPHILS % (AUTO) 92 % (42-75); PLATELET COUNT 394 10^3/uL (130-400); WHITE BLOOD COUNT 17.5 10^3/uL (4.3-11.0)
[2020-04-07 05:59] LABS: ALBUMIN 2.8 GM/DL (3.2-4.5); CHLORIDE 100 MMOL/L (98-107); SODIUM 141 MMOL/L (135-145)
[2020-04-07 06:00] LABS: CALCIUM 8.2 MG/DL (8.5-10.1)
[2020-04-07 06:01] LABS: GLUCOSE 100 MG/DL (70-105); TOTAL PROTEIN 5.4 GM/DL (6.4-8.2)
[2020-04-07 06:02] LABS: CARBON DIOXIDE 26 MMOL/L (21-32)
[2020-04-07 06:03] LABS: BILIRUBIN,TOTAL 0.6 MG/DL (0.1-1.0)
[2020-04-07 06:04] LABS: POTASSIUM 2.3 MMOL/L (3.6-5.0)
[2020-04-07 06:05] LABS: ALKALINE PHOSPHATASE 72 U/L (40-136); GFR ESTIMATED > 60
[2020-04-07 06:06] LABS: BUN/CREATININE RATIO 21
[2020-04-07 06:08] LABS: ALANINE AMINOTRANSFERASE 17 U/L (0-55); MAGNESIUM 2.1 MG/DL (1.6-2.4)
[2020-04-07] MEDS ORDERED: POTASSIUM CL 10MEQ/50ML IVPB 50 ML IV ONE (06:11)
[2020-04-07] MEDS: POTASSIUM CL 10MEQ/50ML IVPB 50 ML IV SCH ×6 (06:18→11:30)
[2020-04-07] MEDS: KCL 20 MEQ TAB (K-DUR) PO SCH (06:18)
[2020-04-07] MEDS ORDERED: KCL 20 MEQ TAB (K-DUR) PO SCH (07:00)
[2020-04-07] MEDS: MAGNESIUM OXIDE (MAG-OX)400 MG TAB PO SCH (08:26)
--- NOTE | 2020-04-07 08:39 | History & Physical ---
History of Present Illness History of Present Illness Reason for visit/HPI PT IS A 80 Y/O MALE WHO IS A CLINIC PATIENT OF DR. 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 HE PRESENTED TO THE EMERGENCY DEPARTMENT AFTER HE WAS FOUND DOWN ON THE GROUND BY A FRIEND. APPARENTLY KISRTIN WAS AMBULATING TO THE KITCHEN, FELL AND WAS UNABLE TO STAND SO HE CRAWLED TO THE LIVING ROOM WHERE HE WAS LYING ON THE FLOOR FOR 18+ HOURS PRIOR TO BEING FOUND. HE WAS EVALUATED AND DOCUMENTATION OF SEVERE HYPOKALEMIA AND MILD RHABDOMYOLYSIS NECESSITATED ADMISSION. NOTE WAS MADE ON CT OF ABD/PELVIS OF A LARGE RENAL MASS WHICH APPEARS TO BE METASTATIC TO LUMBAR SPINE. Date of Admission Apr 06, 2020 at 20:00 Date Seen by a Provider: Apr 07, 2020 Time Seen by a Provider: 08:30 I consulted on this patient on 04/07/20 08:39 Attending Physician Gladys Clemente DO Admitting Physician DASHA ACNSECO MD Consult DR. YOSSI MAHAJAN Allergies and Home Medications Allergies Coded Allergies: No Known Drug Allergies (Unverified , 06/02/10) Home Medications Acetaminophen 500 Mg Tablet, 500 MG PO Q8H PRN for PAIN-MODERATE (5-7), ( Reported) Amlodipine Besylate 10 Mg Tablet, 10 MG PO DAILY, (Reported) Aspirin 81 Mg Tablet.dr, 81 MG PO DAILY, (Reported) Finasteride 5 Mg Tablet, 5 MG PO DAILY, (Reported) Lisinopril 10 Mg Tablet, 10 MG PO DAILY Prescribed by: CRIS MCKEON on 05/12/19 0956 Metformin HCl 500 Mg Tab.er.24h, 500 MG PO HS, (Reported) Metoprolol Succinate 50 Mg Tab.er.24h, 50 MG PO HS Prescribed by: GLADYS CLEMENTE on 05/13/19 1019 Simvastatin 40 Mg Tablet, 40 MG PO HS, (Reported) Sitagliptin Phos/Metformin HCl 1 Tab Tablet, 1 TAB PO DAILY, (Reported) Tamsulosin HCl 0.4 Mg Cap, 0.4 MG PO DAILY, (Reported) Patient Home Medication List Home Medication List Reviewed: Yes Past Gvsmfkn-Zoexvy-Vafjnn Hx Past Med/Social Hx: Reviewed Nursing Past Med/Soc Hx, Reviewed and Corrections made Patient Social History Marrital Status: single Number of Children: 2 Living Status: PT LIVES ALONE IN [place] Employed/Student: retired Alcohol Use: Occasionally Uses Alcohol Beverage of Choice: Beer Recreational Drug Use: No Smoking Status: Current Everyday Smoker Type Used: Cigarettes 2nd Hand Smoke Exposure: Yes Physical Abuse Screen: No Sexual Abuse: No Recent Foreign Travel: No Contact w/other who traveled: No Recent Hopitalizations: No Recent Infectious Disease Expo: No Immunizations Up To Date Tetanus Booster (TDap): Unknown Seasonal Allergies Seasonal Allergies: No Past Medical History Surgeries: Pacemaker, Vascular Surgery (AORTOFEMORAL BYPASS) Currently Using CPAP: No Currently Using BIPAP: No Cardiac: Atrial Fibrillation, Coronary Artery Disease, High Cholesterol, Hypertension, Peripheral Vascular Neurological: TIA Reproductive: No Genitourinary: Prostate Problems, UTI-Chronic Gastrointestinal: Gastroesophageal Reflux Musculoskeletal: Degenerate Disk Disease, Arthritis, Back Injury Endocrine: Diabetes, Non-Insulin dep Are Your Blood Sugars Over 250: No HEENT: Cataract Hearing Impairment: Hard of Hearing History of Blood Disorders: No Adverse Reaction to Blood Conley: No Family History Reviewed and Corrections made Heart Disease, Cancer, Hypertension, Stroke Review of Systems Constitutional: No chills, No fever; malaise, weakness EENTM: hearing loss; No hoarseness, No throat pain Respiratory: cough; No dyspnea on exertion; short of breath; No wheezing; other (SENSATION OF THICK SPUTUM IN THROAT) Cardiovascular: No chest pain; Hx of Intervention; No palpitations Gastrointestinal: No constipation, No diarrhea, No loss of appetite, No nausea, No vomiting Genitourinary: no symptoms reported Musculoskeletal: back pain, muscle weakness Skin: no symptoms reported Psychiatric/Neurological: Denies Anxiety, Denies Depressed; Weakness All Other Systems Reviewed Negative Unless Noted: Yes Physical Exam Vital Signs Vital Signs - First Documented 04/06/20 17:56 Temp 36.3 Pulse 64 Resp 18 B/P (MAP) 194/84 (120) Pulse Ox 100 O2 Delivery Room Air Capillary Refill : Less Than 3 Seconds Height, Weight, BMI Height: 5'4.00" Weight: 171lbs. 0.0oz. [id number]; 19.72 BMI Method:Stated General Appearance: WD/WN, Thin Eyes: Bilateral Eye Normal Inspection HEENT: PERRL/EOMI, Pharynx Normal, Other (THICK MUCOUS - PT SPITTING OUT CRUSHED PILLS WHILE I WAS IN THE ROOM WITH A THICK STRING OF SPUTUM COMING OUT WITH THE PILL DEBRIS) Neck: Full Range of Motion, Normal Inspection, Non Tender, Supple, Carotid Bruit Respiratory: Chest Non Tender, Crackles (RIGHT MID TO BASE), Decreased Breath Sounds Cardiovascular: Systolic Murmur, Tachycardia Gastrointestinal: Normal Bowel Sounds, No Pulsatile Mass, Non Tender, Soft Rectal: Deferred Back: Other (KYPHOSIS) Extremity: Normal Capillary Refill, Normal Range of Motion, Non Tender, Pedal Edema (2+) Neurologic/Psychiatric: Alert, Oriented x3, No Motor/Sensory Deficits, Normal Mood/Affect, 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 SY - WILL PLACE CONSULT - HE WILL SEE PATIENT THIS WEEKEND TO REVIEW CASE AND MAKE FURTHER RECOMMENDATIONS. CT OF ABDOMEN AND PELVIS FINDINGS: There has been further increase in moderate right and small left pleural effusion with mild increase in edema and/or pneumonitis in the adjacent right lower lobe. Below the diaphragm, there has been development of mild a bdominal ascites. No definite focal hepatic or splenic lesion is identified. Gallbladder and pancreas also appear to be stable and unremarkable. Without evidence of adrenal or left renal lesion. The dominant cyst in the upper pole of the right kidney now measures 5.0 x 4.2 cm similar to previous study with continued heterogeneous centrally low dense mass in the right periaortic ret roperitoneum which appears to encircle the right main renal artery. This measures up to 7.4 x 4.6 cm. There is associated resorption and probable destruction of L2 vertebral body. There is also mass filling the right renal collecting system extending into the upper pole of the right kidney. There has been mild increase in central retroperitoneal adenopathy with left periaortic lymph node reaching 1.7 cm in diameter. The urinary bladder is decompressed around a Rasmussen catheter. There is extensive aortoiliac atherosclerotic calcification. 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 There does appear to be femoral to femoral bypass. There is left convexity curvature of the lumbar spine. Compression fracture deformities of lumbar vertebrae have not appreciably changed. IMPRESSION: 1. Increasing pleural fluid and basilar atelectasis, edema and/or pneumonitis in the visualized lung watkins. 2. There does appear to be right upper lobe renal mass with extension into the right renal hilum. This may represent renal cell carcinoma, lymphoma or transitional cell carcinoma with extensive, progressive central retroperitoneal adenopathy, as described. This includes area of probable bone infiltration or destruction at the L2 level. 3. Additional findings include what appears to be occlusion of the left iliac artery and clinical correlation would be of use. RHABDOMYOLYSIS - IMPROVED WITH HYDRATION, MONITOR RENAL FUNCTION, MONITOR CK LEVEL TOMORROW. PLEURAL EFFUSION - SUPPORTIVE CARE, MONITOR SYMPTOMS, WILL GIVE LOW DOSE LASIX TODAY. PNEUMONIA - START ON ROCEPHIN, AZITHROMYCIN COMBINATION THERAPY, MONITOR SERIAL CXR SEVERE HYPOKALEMIA AND HYPOMAGNESEMIA - REPLACE ORALLY AND WITH IV - PT DID NOT TOLERATE ORAL POTASSIUM THIS MORNING - WHILE I WAS IN THE ROOM HE SPIT OUT HIS POTASSIUM THAT HAD BEEN CRUSHED, WILL REPEAT A POTASSIUM LEVEL LATER TODAY AND MONITOR FOR RESPONSE TO IV THERAPY OF POTASSIUM. ANEMIA - SUPPORTIVE CARE, HE DOES NOT NEED TRANSFUSION AT THIS TIME. - MONITOR LABS. LEUKOCYTOSIS -- TREAT SUSPECTED PNEUMONIA - WILL MONITOR SERIAL CBC'S ELEVATED PROCALCITONIN HYPERTENSION - RESUME HOME REGIMEN EXCEPT FOR LISINOPRIL DIABETES MELLITUS - HOLD METFORMIN AND SITAGLIPTAN - WILL PLACE ON SLIDING SCALE "A" INSULIN PROTOCOL. HYPERLIPIDEMIA - HOLD STATIN THERAPY AT THIS TIME. BPH - RESUME TAMSULOSIN AND FINASTERIDE THERAPY. 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 MAHAJAN FOR ONCOLOGY. PT IS HIGH RISK FOR DVT WILL START ON LOVENOX AND SCD'S GI PROPHYLAXIS WITH PROTONIX I HAVE ATTEMPTED TO CALL PT'S DTR WITH PHONE NUMBERS HE PROVIDED WELL HIS BROTHER WHO IS LISTED NEXT OF KIN IN HIS CHART WITH OUT SUCCESS AT REACHING EITHER IN PERSON - I HAVE LEFT MESSAGES ON BOTH OF THE PROVIDED NUMBERS TO CONTACT THE HOSPITAL AND I WILL TRY AGAIN TOMORROW. 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 DASHA CANSECO MD Apr 07, 2020 08:39
[2020-04-07] MEDS: FINASTERIDE (PROSCAR) 5 MG TAB PO SCH (09:10)
[2020-04-07] MEDS: TAMSULOSIN 0.4 MG (FLOMAX) CAP PO SCH (09:10)
[2020-04-07] MEDS: amLODIPine 10 MG (NORVASC) TAB PO SCH (09:10)
[2020-04-07] MEDS: ASPIRIN E.C. 81 MG (ECOTRIN) TAB PO SCH (09:10)
[2020-04-07] MEDS: inSUlin ASPART (NovoLOG) 1 UNIT/0.01 ML (CHARGE PER UNIT) SC SCH ×3 (10:50→21:13)
[2020-04-07] MEDS ORDERED: POTASSIUM CHLORIDE INJ 20 MEQ in NS IV 1000 ML 1,000 ML IV SCH (10:55)
[2020-04-07] MEDS ORDERED: PANTOPRAZOLE 40 MG (PROTONIX) VIAL IV NR (11:00)
[2020-04-07] MEDS: NS W/KCL 20 MEQ/L 1,000 ML IV SCH ×2 (11:30→23:43)
--- NOTE | 2020-04-07 11:35 | NUR ---
PT PERSONAL BELONGINGS DELIVERED TO PT BY TIMUR GILMORE WATER SOFTENER SERVICER AND INSTALLER. PT WALLET WITH CHANDLER WAS COUNTED AND HAND DELIVERED TO PT. THIS RN IN ROOM WITNESS. PT HAS $177 CHANDLER
--- NOTE | 2020-04-07 15:37 | CONSULTATION REPORT ---
DATE OF SERVICE: 04/07/2020 PHYSICIAN REQUESTING CONSULTATION: María Russell MD PRIMARY PHYSICIAN: Pricila Clemente DO The patient is admitted to room 411. IMPRESSION: 1. A 80-year-old male admitted to the hospital after a fall at home and being down for 18 hours. Evaluation at the emergency department showing evidence of mild rhabdomyolysis as well as severe hypokalemia. 2. Large right renal mass extending to paraaortic region as well as involving L2 lumbar vertebrae. 3. Other comorbidities of COPD, coronary artery disease, history of [place], atrial fibrillation, diabetes mellitus, etc. RECOMMENDATIONS: 1. Continue management of rhabdomyolysis as well as electrolyte abnormalities as you are doing. 2. Consult interventional radiology for a CT-guided biopsy of the right renal/paraaortic mass for tissue diagnosis. 3. Consult vp digital marketing social media and crm regarding his living arrangements. 4. Once the pathology report from biopsy is available, I will review this with the patient and his family and discuss about options. BRIEF HISTORY: The patient is a 80-year-old male who was found on the floor of his home by his friend and brought to the emergency room. The patient gives a history of fall and could not get up. He has been on the floor for approximately 18 hours before he was found. Evaluation at the emergency room showed severe hypokalemia as well as mild rhabdomyolysis. He was admitted for further evaluation and management. A CT scan of the chest and abdomen done at the emergency room showed large right renal mass extending to the paraaortic area and may be invading the L2 vertebral body. This was noted last month and the patient had seen a physician in [place], but no biopsies were done. The patient was unsure about the plan and does not remember if he has any followup in [place]. An oncology consultation was requested for further recommendations. PAST MEDICAL HISTORY: Significant for diabetes mellitus for more than 10 years. He has coronary artery disease with MIs in the past. He also has atrial fibrillation and refused anticoagulation because of previous episode of GI bleeding. He has COPD and has continued smoking regularly. He denied any major surgeries in the past. SOCIAL HISTORY: The patient was twice and . He has two children, a daughter who lives in [place], [place], and a son who lives near [place], [place]. He has not seen his children since the COVID-19 started approximately a year ago. He does talk to them by phone regularly. He has a brother who lives in [place], [place], who checks on the patient and helps him. Otherwise, he is living alone and receives Meals on Wheels. He has approximately 50- to 55-year history of smoking anywhere from 1 to 1.5 packs of cigarettes a day. He is continuing to smoke at least a pack a day now. Denied any significant alcohol or recreational drug use. 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 FAMILY HISTORY: Significant for his father who was diagnosed with bladder cancer while in his late 60s/early 70s. The patient does not know of any other malignancies in the family. His sister had diabetes mellitus. PHYSICAL EXAMINATION: GENERAL: Showed an elderly male, weak appearing, awake and answering questions appropriately, although having some difficulty remembering details. VITAL SIGNS: Temperature was 36.5 degree centigrade, pulse rate of 60, respiratory rate 20, blood pressure 171/80 with oxygen saturation of 96% on room air. HEENT: Normocephalic with male pattern baldness, extraocular muscles intact, conjunctivae slightly pale, oral mucosa moist. NECK: Supple, with no JVD. No cervical, supraclavicular or axillary lymphadenopathy palpable. CHEST: Symmetrical. LUNGS: With diminished breath sounds bilaterally with a few faint wheezes in the bases. CARDIOVASCULAR: Regular in rate and rhythm. No murmurs or gallops heard. ABDOMEN: Soft, nontender with no hepatosplenomegaly or other masses palpable. EXTREMITIES: Showed no edema. NEUROLOGIC: Grossly intact without focal motor deficits. Overall, motor strength was 4/5 bilaterally. LABORATORY DATA: CBC done today showed WBC 17.5, hemoglobin 10.1, MCV 87, platelet count 394,000 with a neutrophil count 16.1 and lymphocyte count 0.7. Chemistry panel showed normal electrolytes except potassium level of 2.3. BUN was 15 and creatinine 0.7 with GFR more than 60 mL per minute. Liver function studies were within normal limits except albumin level of 2.8. CK was slightly elevated at 365. CT scan of the abdomen and pelvis done at the time of evaluation at the emergency room showed increasing bilateral pleural fluid and basilar atelectasis, edema and/or pneumonitis in the visualized lower lung watkins. Right upper pole renal mass with extension into the renal hilum. Extensive progressive central retroperitoneal adenopathy measuring 7.4 x 4.6 cm associated with a probable destruction of L2 vertebral body, nonopacification of the left iliac artery indicating occlusion. There is a femoral to femoral bypass. The patient also had a CT scan of the head without contrast, which was unremarkable with no abnormal mass effect or midline shift. Thank you for allowing me to participate in this patient's care. I will follow the patient with you and make appropriate recommendations. Job ID: [id number] DocumentID: [id number] Dictated Date: 04/07/2020 14:37:02 Internet Retailer Date: 04/07/2020 15:36:33 Dictated By: APOLINAR MAHAJAN MD MTDD
[2020-04-07] MEDS: meTOproloL SUCCINATE 50 MG (TOPROL XL) TAB PO SCH (20:27)
--- NOTE | 2020-04-07 20:55 | NUR ---
Dr. Russell (group home paraprofessional for Dr. Clemente) notified of low output at 75 mls for evening I&O (and 100 mls for day shift I&O). New order rec for Lasix 20mg IV x 1 dose. Will continue to monitor.
[2020-04-07] MEDS ORDERED: FUROSEMIDE 40 MG/4 ML INJ (LASIX) IVP ONE (21:07)
[2020-04-07] MEDS: ENOXAPARIN 40 MG/0.4 ML (LOVENOX) SYR SC SCH (21:17)
--- NOTE | 2020-04-07 23:58 | NUR ---
Output of 225 mls noted from Lasix 20mg IV given at 2116. Will continue to monitor.
[2020-04-08 03:45] VITALS: BP 160/74
[2020-04-08 05:48] LABS: HEMOGLOBIN 9.5 g/dL (13.3-17.7); MEAN PLATELET VOLUME 9.4 fL (9.0-12.2); WHITE BLOOD COUNT 18.7 10^3/uL (4.3-11.0)
[2020-04-08 05:57] LABS: CHLORIDE 105 MMOL/L (98-107); POTASSIUM 3.7 MMOL/L (3.6-5.0); SODIUM 141 MMOL/L (135-145)
[2020-04-08 05:58] LABS: CALCIUM 8.1 MG/DL (8.5-10.1)
[2020-04-08 05:59] LABS: GLUCOSE 121 MG/DL (70-105); TOTAL PROTEIN 5.8 GM/DL (6.4-8.2)
[2020-04-08 06:00] LABS: CARBON DIOXIDE 25 MMOL/L (21-32)
[2020-04-08 06:01] LABS: BILIRUBIN,TOTAL 0.5 MG/DL (0.1-1.0)
[2020-04-08 06:03] LABS: ALKALINE PHOSPHATASE 76 U/L (40-136); CREATININE SERUM 0.85 MG/DL (0.60-1.30); GFR ESTIMATED > 60
[2020-04-08 06:04] LABS: BUN/CREATININE RATIO 21
[2020-04-08 06:06] LABS: ALANINE AMINOTRANSFERASE 17 U/L (0-55); MAGNESIUM 1.9 MG/DL (1.6-2.4)
[2020-04-08 06:07] LABS: CREATINE KINASE 68 U/L (30-200)
[2020-04-08] MEDS: inSUlin ASPART (NovoLOG) 1 UNIT/0.01 ML (CHARGE PER UNIT) SC SCH ×4 (06:36→21:17)
[2020-04-08] MEDS: KCL 20 MEQ TAB (K-DUR) PO SCH (07:54)
[2020-04-08] MEDS: TAMSULOSIN 0.4 MG (FLOMAX) CAP PO SCH (07:54)
[2020-04-08] MEDS: MAGNESIUM OXIDE (MAG-OX)400 MG TAB PO SCH (07:54)
[2020-04-08] MEDS: amLODIPine 10 MG (NORVASC) TAB PO SCH (07:54)
[2020-04-08] MEDS: FINASTERIDE (PROSCAR) 5 MG TAB PO SCH (07:55)
[2020-04-08] MEDS: PANTOPRAZOLE 40 MG (PROTONIX) VIAL IV SCH (07:55)
[2020-04-08] MEDS: ASPIRIN E.C. 81 MG (ECOTRIN) TAB PO SCH (07:55)
[2020-04-08 08:00] VITALS: BP 160/70
--- NOTE | 2020-04-08 09:21 | Progress Note ---
Subjective Subjective Date Seen by Provider: Apr 08, 2020 Time Seen by Provider: 09:20 All Other Systems Reviewed All Other Systems Reviewed: Yes Objective Exam Vital Signs Vital Signs - First Documented 04/06/20 17:56 Temp 36.3 Pulse 64 Resp 18 B/P (MAP) 194/84 (120) Pulse Ox 100 O2 Delivery Room Air Capillary Refill : Less Than 3 Seconds General Appearance: WD/WN, Thin Eyes: Bilateral Eye Normal Inspection, Bilateral Eye PERRL, Bilateral Eye EOMI HEENT: PERRL/EOMI, Pharynx Normal, Other (THICK MUCOUS - PT SPITTING OUT CRUSHED PILLS WHILE I WAS IN THE ROOM WITH A THICK STRING OF SPUTUM COMING OUT WITH THE PILL DEBRIS) Neck: Full Range of Motion, Normal Inspection, Non Tender, Supple, Carotid Bruit Respiratory: Chest Non Tender, Crackles (RIGHT MID TO BASE), Decreased Breath Sounds Cardiovascular: Systolic Murmur, Tachycardia Gastrointestinal: Normal Bowel Sounds, No Pulsatile Mass, Non Tender, Soft Rectal: Deferred Back: Other (KYPHOSIS) Extremity: Normal Capillary Refill, Normal Range of Motion, Non Tender, Pedal Edema (2+) Neurologic/Psychiatric: Alert, Oriented x3, No Motor/Sensory Deficits, Normal Mood/Affect, hr 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 Norm as Tested Skin: Normal Color, Warm/Dry Lymphatic: No Adenopathy Results Lab Laboratory Tests 04/07/20 10:44: Glucometer 157H 04/07/20 14:05: Potassium Level 3.8 04/07/20 15:34: Glucometer 161H 04/07/20 21:04: Glucometer 134H 04/08/20 05:31: Glucometer 119H 04/08/20 05:39: White Blood Count 18.7H, Red Blood Count 3.50L, Hemoglobin 9.5L, Hematocrit 31L, Mean Corpuscular Volume 88, Mean Corpuscular Hemoglobin 27, Mean Corpuscular Hemoglobin Concent 31L, Red Cell Distribution Width 16.2H, Platelet Count 398, Mean Platelet Volume 9.4, Sodium Level 141, Potassium Level 3.7, Chloride Level 105, Carbon Dioxide Level 25, Anion Gap 11, Blood Urea Nitrogen 18, Creatinine 0.85, Estimat Glomerular Filtration Rate > 60, BUN/Creatinine Ratio 21, Glucose Level 121H, Calcium Level 8.1L, Corrected Calcium 8.9, Magnesium Level 1.9, Total Bilirubin 0.5, Aspartate Amino Transf (AST/SGOT) 17, Alanine Aminotransferase (ALT/SGPT) 17, Alkaline Phosphatase 76, Total Creatine Kinase 68, Total Protein 5.8L, Albumin 3.0L Microbiology 04/06/20 Blood Culture - Preliminary, Resulted No growth Assessment/Plan Assessment/Plan Admission Dx RIGHT RENAL MASS RHABDOMYOLYSIS PLEURAL EFFUSION PNEUMONIA SEVERE HYPOKALEMIA HYPOMAGNESEMIA ANEMIA LEUKOCYTOSIS ELEVATED PROCALCITONIN HYPERTENSION DIABETES MELLITUS HYPERLIPIDEMIA BPH 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 SY - PT WAS SEEN AT [facility] BY DR. DE JESUS WITH UROLOGY GROUP OUT OF [place], PER PT'S BROTHER'S REPORT - HE DID NTO HAVE THE CT SCAN TO LOOK AT AND WOULD GET A COPY OF THE CT SCAN TO LOOK AT PRIOR TO MAKING FURTHER RECOMMENDATIONS - THE PATIENT HAD NOT YET HEARD FROM THE SPECIALIST PRIOR TO HIS FALL. - DISCUSSED WITH DR. MAHAJAN - HE SAW PT ON 04/07/2020 - WOULD LIKE TISSUE TO DETERMINE TYPE OF CELLS AND FURTHER TREATMENT RECOMMENDATIONS. CT OF ABDOMEN AND PELVIS FROM ADMISSION: FINDINGS: There has been further increase in moderate right and small left pl eural effusion with mild increase in edema and/or pneumonitis in the adjacent right lower lobe. Below the diaphragm, there has been development of mild abdominal ascites. No definite focal hepatic or splenic lesion is identified. Gallbladder and pancreas also appear to be stable and unremarkable. Without evidence of adrenal or left renal lesion. The dominant cyst in the upper pole of the right kidney now measures 5.0 x 4.2 cm similar to previous study with continued heterogeneous centrally low dense mass in the right periaortic retroperitoneum which appears to encircle the right main renal artery. This measures up to 7.4 x 4.6 cm. There is associated resorption and probable destruction of L2 vertebral body. There is also mass filling the right renal collecting system extending into the upper pole of the right kidney. There has been mild increase in central retroperitoneal adenopathy with left periaortic lymph node reaching 1.7 cm in diameter. The urinary bladder is decompressed around a Rasmussen catheter. There is extensive aortoiliac atherosclerotic calcification. 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 There does appear to be femoral to femoral bypass. There is left convexity curvature of the lumbar spine. Compression fracture deformities of lumbar vertebrae have not appreciably changed. IMPRESSION: 1. Increasing pleural fluid and basilar atelectasis, edema and/or pneumonitis in the visualized lung watkins. 2. There does appear to be right upper lobe renal mass with extension into the right renal hilum. This may represent renal cell carcinoma, lymphoma or transitional cell carcinoma with extensive, progressive central retroperitoneal adenopathy, as described. This includes area of probable bone infiltration or destruction at the L2 level. 3. Additional findings include what appears to be occlusion of the left iliac artery and clinical correlation would be of use. RHABDOMYOLYSIS - RESOLVED WITH HYDRATION PLEURAL EFFUSION - SUPPORTIVE CARE, MONITOR SYMPTOMS, WILL GIVE ANOTHER DOSE OF LASIX TODAY. PNEUMONIA - STARTED ON ROCEPHIN, AZITHROMYCIN COMBINATION THERAPY, MONITOR SERIAL CXR SEVERE HYPOKALEMIA AND HYPOMAGNESEMIA - REPLACE WITH IV ANEMIA - SLIGHTLY WORSE TODAY - HGB ON ADMIT WAS 11, NOW 9.5, REPEAT LABS IN MORNING, SUPPORTIVE CARE, HE DOES NOT NEED TRANSFUSION AT THIS TIME. LEUKOCYTOSIS -- TREAT SUSPECTED PNEUMONIA - WILL MONITOR SERIAL CBC'S ELEVATED PROCALCITONIN HYPERTENSION - RESUMED HOME REGIMEN EXCEPT FOR LISINOPRIL DIABETES MELLITUS - HOLD METFORMIN AND SITAGLIPTAN - WILL PLACE ON SLIDING SCALE "A" INSULIN PROTOCOL. HYPERLIPIDEMIA - HOLD STATIN THERAPY AT THIS TIME. BPH - RESUMED TAMSULOSIN AND FINASTERIDE THERAPY. 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 MAHAJAN FOR ONCOLOGY. PT IS HIGH RISK FOR DVT WILL START ON LOVENOX AND SCD'S GI PROPHYLAXIS WITH PROTONIX DISCUSSED CASE WITH PT'S BROTHER THIS MORNING, HE WILL RELATE INFORMATION TO FAMILY. CONSULT TO RADIOLOGY FOR CT GUIDED BIOPSY OF MASS, HOLD ASPIRIN AND LOVENOX UN TIL BIOPSY. DISCUSSED CODE STATUS WITH PT - HE DESIRES TO BE A FULL CODE. 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
--- NOTE | 2020-04-08 10:28 | Diagnostic Imaging Report ---
CHEST PA/LAT (2 VIEW) Indication: Pleural effusion Comparison: 04/06/2020 Findings: Improvement in but persistence of right mid and lower lung zone opacities. Enlarging small right pleural effusion . No pneumothorax. Stable cardiomegaly with left pectoral dual chamber pacemaker. Impression: Enlarging small right pleural effusion. Dictated by: Dictated on workstation # [id number]
--- NOTE | 2020-04-08 10:43 | CONSULTATION REPORT ---
DATE OF SERVICE: 04/08/2020 ATTENDING PHYSICIAN: Dr. Russell. SUMMARY: After reviewing the patient's record in the hospital and the office, this is a 80-year-old white man with some dementia, patient of mine for many years. A CAT scan back in 06/03/2018 showed a right upper pole renal cyst. Recently, he had a bout of hematuria and a repeat CT scan showed again the cyst, but a new finding of a right lymph node mass around the right kidney and aorta with a question destruction of L2. I did an ultrasound first to confirm the cyst in the kidney and the mass. His PSA was 3.1. Rectal exam was negative. Cystoscopy at the office just showed trilobar enlargement of the prostate, but no other pathology. No bladder tumor. I gave him the choices of referral and he elected to go to [facility] in [place]. He saw urologist there, who apparently according to the patient recommended repeat x-rays versus biopsies. He has been admitted by Dr. Russell and was seen by Dr. Fraire, who recommended the biopsy to be done here probably by Dr. Galvez, he will arrange that and I concur with the plan. IMPRESSION: 1. Retroperitoneal adenopathy with destruction of L2 vertebral body. 2. Bilateral pleural effusion. 3. History of hematuria. Otherwise, negative workup. 4. Benign prostatic hypertrophy, on Proscar with normal PSA. RECOMMENDATIONS: I concur with Dr. Fraire with the plan, which I already had established from before. Job ID: [id number] DocumentID: [id number] Dictated Date: 04/08/2020 09:02:47 Railroad Wheels And Axle Inspector Date: 04/08/2020 10:42:45 Dictated By: JESSIE SY MD
[2020-04-08 12:00] VITALS: BP 174/71
[2020-04-08] MEDS: NS W/KCL 20 MEQ/L 1,000 ML IV SCH (13:00)
[2020-04-08 16:05] VITALS: BP 155/65
[2020-04-08] MEDS: meTOproloL SUCCINATE 50 MG (TOPROL XL) TAB PO SCH (19:38)
[2020-04-08 20:00] VITALS: BP 159/68
[2020-04-08 23:04] VITALS: BP 149/67
[2020-04-09 04:22] VITALS: BP 182/80
[2020-04-09] MEDS: inSUlin ASPART (NovoLOG) 1 UNIT/0.01 ML (CHARGE PER UNIT) SC SCH ×4 (05:44→21:07)
[2020-04-09 06:39] LABS: HEMOGLOBIN 9.7 g/dL (13.3-17.7); MEAN PLATELET VOLUME 9.5 fL (9.0-12.2); WHITE BLOOD COUNT 17.5 10^3/uL (4.3-11.0)
[2020-04-09 06:43] LABS: ALBUMIN 2.9 GM/DL (3.2-4.5)
[2020-04-09 06:44] LABS: CHLORIDE 104 MMOL/L (98-107); POTASSIUM 4.4 MMOL/L (3.6-5.0); SODIUM 137 MMOL/L (135-145)
[2020-04-09 06:45] LABS: CALCIUM 8.1 MG/DL (8.5-10.1)
[2020-04-09 06:46] LABS: GLUCOSE 144 MG/DL (70-105); TOTAL PROTEIN 5.8 GM/DL (6.4-8.2)
[2020-04-09 06:47] LABS: CARBON DIOXIDE 24 MMOL/L (21-32)
[2020-04-09 06:48] LABS: BILIRUBIN,TOTAL 0.6 MG/DL (0.1-1.0)
[2020-04-09 06:50] LABS: ALKALINE PHOSPHATASE 107 U/L (40-136); CREATININE SERUM 0.77 MG/DL (0.60-1.30); GFR ESTIMATED > 60
[2020-04-09 06:51] LABS: BUN/CREATININE RATIO 26
[2020-04-09 06:53] LABS: ALANINE AMINOTRANSFERASE 17 U/L (0-55); MAGNESIUM 1.8 MG/DL (1.6-2.4)
[2020-04-09 08:00] VITALS: BP 195/87
[2020-04-09] MEDS: TAMSULOSIN 0.4 MG (FLOMAX) CAP PO SCH (08:32)
[2020-04-09] MEDS: PANTOPRAZOLE 40 MG (PROTONIX) VIAL IV SCH (08:32)
[2020-04-09] MEDS: FINASTERIDE (PROSCAR) 5 MG TAB PO SCH (08:32)
[2020-04-09] MEDS: MAGNESIUM OXIDE (MAG-OX)400 MG TAB PO SCH (08:33)
[2020-04-09] MEDS: amLODIPine 10 MG (NORVASC) TAB PO SCH (08:33)
[2020-04-09] MEDS: KCL 20 MEQ TAB (K-DUR) PO SCH (08:33)
[2020-04-09] MEDS: NS W/KCL 20 MEQ/L 1,000 ML IV SCH (08:43)
--- NOTE | 2020-04-09 08:45 | ST Dysphagia Evaluation ---
Speech Evaluation-General Medical Diagnosis Pneumonia Onset Date: Apr 09, 2020 Therapy Diagnosis Therapy Diagnosis: Oropharyngeal Dysphagia Precautions Precautions: Aspiration Referral Referring Physician: Dr. Russell Medical History Pertinent Medical History: Atrial Fib, Arthritis, CAD, DM, GERD, HTN, Smoking Reviewed History: Yes Social History Current Living Status: Alone Speech PLF/Current-Dysphagia Prior Level of Function Patient lives home alone where he was independent for his daily needs. Subjective Patient was pleasant and cooperative with the Bedside Dysphagia Evaluation. Cognitive Status Patient Orientation: Person, Place, Situation Oral Motor Skills Denture Type: Full- Upper & Lower Current Food Consistancy: Pureed, Thin Liquids Ability to Follow Directions: Good Oral Expression Ability: No Impairment Voice Voice Phonatory-Based Quality: Normal Voice Pitch: Normal Voice Loudness: Normal Face Facial Symmetry: Symmetrical Oral-Facial Assessment Oral-Facial Dentition: Normal Labial Seal Description: Normal Smile: Normal Lingual Protrusion: Normal Lingual ROM: Normal Lingual Strength: Normal Pharynx Velopharyngeal Move.: Normal Volitional Dry Swallow: Yes Voluntary Cough: Yes Dysphagia Evaluation Consistencies Presented: Thin Liquid, Mechanical Soft, Pureed Oral phase is within normal range of function for consistencies presented. Pharyngeal phase is within normal range of function for consistencies presented. Dietary Recommendations: Mechanical Soft Liquid Recommendations: Thin Swallowing Precautions: Alternate Liquids/Solids, Decreased Bolus 1/2 Tsp, Liquids from Straw, Small Bites and Sips, Sitting Upright 90 Degrees, Sitting 90 Degrees 30 Post Intake Dysphagia Evaluation Summary Patient is a pleasant 80 y/o who was admitted to the hospital via ED. Patient was found to have pneumonia upon admission. Patient completed the BDE without difficulty. Patient is currently on a puree diet level with thin liquids. Patient was presented 1/2 tsp of thin liquids x2 and small sips via straw x2 without difficulty. Patient was also eating small bites of puree during his breakfast without difficulty or s/s of aspiration. Patient was presented a trial of mechanical soft without difficulty. Patient is recommended for Dysphagia II with thin liquids. This information was provided to his nurse as well as written on the white board in his room. The patient also requested high protein, low sugar supplements which was also provided to his nurse. Barriers to Learning None identified Speech-Plan Patient/Family Goals Patient/Family Goals: Patient plans on returning to his home upon discharge. Treatment Plan Speech Therapy Treatment Plan: Discontinue ST Treatment Duration: Apr 09, 2020 Frequency: 1 time per week Estimated Hrs Per Day: .25 hour per day Rehab Potential: Fair Barriers to Learning: None identified Pt/Family Agrees to Plan: Yes Safety Risks/Education Teaching Recipient: Patient Teaching Methods: Demonstration, Discussion Response to Teaching: Verbalize Understanding, Return Demonstration Education Topics Provided: Diet levels, safety strategies for oral intake Time Speech Therapy Time In: 08:15 Speech Therapy Time Out: 08:35 Total Billed Time: 20 Billed Treatment Time 1, DYSEVS, DYST GLENNY Ray Apr 09, 2020 08:45
[2020-04-09] MEDS ORDERED: IBUP-2473 PO (10:31)
[2020-04-09] MEDS ORDERED: SITA1TAB6 PO (10:31)
[2020-04-09] MEDS ORDERED: METO50TA7 PO (10:31)
[2020-04-09] MEDS ORDERED: LISI10TA2 PO (10:31)
--- NOTE | 2020-04-09 10:37 | Physical Therapy Evaluation ---
PT Evaluation-General Medical Diagnosis Admission Date Apr 06, 2020 at 20:00 Medical Diagnosis: Pneumonia Onset Date: Apr 09, 2020 Therapy Diagnosis Therapy Diagnosis: generalized weakness/debility Height/Weight Height (Feet): 5 Height (Inches): 4.00 Weight (Pounds): 171 Weight (Ounces): 0.0 Precautions Precautions/Isolations: Fall Prevention Referral Physician: Drew Reason for Referral: Evaluation/Treatment Medical History Pertinent Medical History: Atrial Fib, Arthritis, CAD, DM, GERD, HTN, Smoking Additional Medical History metastatic cancer Current History EMS secondary to fall at home secondary to weakness Reviewed History: Yes Social History Home: Single Level Current Living Status: Alone Prior Prior Level of Function SCALE: Activities may be completed with or without assistive devices. 6-Rheqjrpynl-ypvrhof completes the activity by him/herself with no assistance from a helper. 5-Set-up or Clean-up Assistance-helper sets up or cleans up; patient completes activity. [place] assists only prior to or following the activity. 4-Supervision or Touching Assistance-helper provides verbal cues and/or touching/steadying and/or contact guard assistance as patient completes activity. Assistance may be provided throughout the activity or intermittently. 3-Partial/Moderate Assistance-helper does LESS THAN HALF the effort. [place] lifts, holds or supports trunk or limbs, but provides less than half the effort. 2-Substantial/Maximal Assistance-helper does MORE THAN HALF the effort. [place] lifts or holds trunk or limbs and provides more than half the effort. 4-Frokdjbud-nzpxjp does ALL the effort. Patient does none of the effort to complete the activity. Or, the assistance of 2 or more helpers is required for the patient to complete the activity. If activity was not attempted, code reason: 7-Patient Refused. 9-Not Applicable-not attempted and the patient did not perform the activity before the current illness, exacerbation or injury. 10-Not Attempted due to Environmental Limitations-(lack of equipment, weather restraints, etc.). 88-Not Attempted due to Medical Conditions or Safety Concerns. Bed Mobility: 5 Transfers (B,C,W/C): 5 Gait: 5 Indoor Mobility (Ambulation): Independent Prior Devices Use: Walker PT Evaluation-Current Subjective Patient agrees to PT. He states he was on the floor at home for 18 hours. Objective Patient Orientation: Normal For Age Attachments: Rasmussen Catheter, IV ROM/Strength ROM Lower Extremities bilateral LE WFL Strength Lower Extremities 3-/5 grossly bilateral LE Integumentary/Posture Integumentary refer to nursing notes Bladder Incontinence: Rasmussen Cath Posture kyphotic Neuromuscular (Tone, Coordination, Reflexes) diminished coordination and proprioception Sensory Vision: Wears Glasses Hearing: Impaired Sensation Right Lower Extremit: Impaired Sensation Left Lower Extremity: Impaired Transfers Roll Left to Right (QC): 4 Sit to Lying (QC): 3 Lying to Sitting/Side of Bed(Q: 3 Sit to Stand (QC): 2 Chair/Pef-sv-Jplfz Xfer(QC): 2 Gait Does the Patient Walk?: Yes Mode of Locomotion: Walk Anticipated Mode of Locomotion: Walk Walk 10 feet (QC): 2 Walk 50 ft with 2 Turns(QC): 88 Walk 150 ft (QC): 88 Distance: 10' Gait Assistive Device: FWW Comments/Gait Description slightly unsteady, shuffle gait sequence Balance Sitting Static: Normal Sitting Dynamic: Normal Standing Static: Fair Standing Dynamic: Poor Assessment/Needs 80 y.o. male, will benefit from skilled PT to address functional strength and mobility. Patient has severely diminished coordination and weakness bilateral LE . Rehab Potential: Guarded Post Rehab Potential-Barriers: metastatic cancer PT Mcc Goals Manager Knowledge Goals PT Mcc Goals Time Frame: Apr 21, 2020 Roll Left & Right (QC): 4 Sit to Lying (QC): 4 Lying-Sitting on Side/Bed(QC): 4 Sit to Stand (QC): 4 Chair/Sfe-ty-Ataan Xfer(QC): 4 Toilet Transfer (QC): 4 Does the Patient Walk: Yes Walk 10 feet (QC): 4 Walk 50ft with 2 Turns (QC): 4 PT Plan Problem List Problem List: Activity Tolerance, Functional Strength, Safety, Balance, Gait, Transfer, Bed Mobility Treatment/Plan Treatment Plan: Continue Plan of Care Treatment Plan: Bed Mobility, Education, Functional Activity Kevan, Functional Strength, Gait, Safety, Therapeutic Exercise, Transfers Treatment Duration: Apr 21, 2020 Frequency: 6 times per week Estimated Hrs Per Day: .5 hour per day Patient and/or Family Agrees t: Yes Discharge Recommendations Therapy Discharge Recommendati: Other, See Comments (care home facility) Time/GCodes Time In: 914 Time Out: 927 Total Billed Treatment Time: 13 [facility] Apr 09, 2020 10:37
--- NOTE | 2020-04-09 10:56 | NUR ---
I SPOKE WITH THE PATIENT, CALLED DR. ORONA'S OFFICE AND WENT THROUGH THE EXTERNAL MED HISTORY TO COMPLETE THIS MED REC. AMLODIPINE 10MG WAS CONTINUED ON PATIENT'S MED REC, BUT I TOOK IT OFF SINCE PATIENT SAID HE WASN'T TAKING IT ANY MORE. TAMSULOSIN 0.4MG DAILY WAS ALSO CONTINUED. PATIENT SAID THAT HE TAKES 2 0.4MG TABLETS HS. THESE DIRECTIONS DO NOT LINE UP WITH THE DIRECTIONS FROM THE PHARMACY, THE DIRECTIONS RECENTLY CHANGED FROM 2 TABLETS TO 1 TABLET SO I CHECKED IN WITH THE PATIENT TO VERIFY THAT THIS IS THE WAY THAT HE TAKES IT. HE SAID THAT HE WAS NEVER TOLD OTHERWISE TO BE TAKING JUST 1 TABLET SO HE'S BEEN TAKING 2. I CHANGED THIS ON THE MED REC. PATIENT GETS JANUMET 50MG-1000MG SAMPLES FROM DR. ORONA'S OFFICE. THEY COULDN'T VERIFY FILL DATES FROM SAMPLES BUT DID VERIFY THE DOSE AND STRENGTH. OTC: TYLENOL IBUPROFEN ASPIRIN
--- NOTE | 2020-04-09 11:04 | Diagnostic Imaging Report ---
INDICATION: Pleural effusion. FINDINGS: The right greater than left pleural effusions are again noted. The left-sided small effusion has nearly completely resolved and, on the right, there is a mild reduction. There is also improved perihilar and basilar passive atelectasis in the right lung; however, pneumonia superimposed could not be excluded. IMPRESSION: Improvements in bilateral pleural-parenchymal opacities with no adverse development. Dictated by: Dictated on workstation # [id number]
[2020-04-09 12:00] VITALS: BP 184/73
--- NOTE | 2020-04-09 12:14 | Progress Note - Urology ---
Progress Note-Urology Progress Notes/Assess & Plan Progress/Assessment & Plan DID NOT GET BIOPSY YET Final Diagnosis STEVE RENAL MASS JESSIE SY MD Apr 09, 2020 12:14
--- NOTE | 2020-04-09 12:33 | NUR ---
Initial visit: Pt states he thought he had a cyst on his kidney but found out it is cancer, and that it has metastasized to his abdomen. Glazing Department Supervisor offered empathic listening as pt shared his fears and expressed trust in Lucian whether or not he is healed. The pt expressed concerns that he was only turning to God because of his painful circumstance. Glazing Department Supervisor facilitated reflection about pt's wilda journey beginning when he was 18, and supported pt in exploring themes of forgiveness and hope. The pt expressed feeling increasing reassurance and demonstrated the ability to foster hope and inner peace rooted in his personal wilda. The pt has two sons and expresses pride in them.
--- NOTE | 2020-04-09 15:27 | NUR ---
CM/SS visited with patient for discharge planning. Plan: undetermined at this time. Home: The patient reports that he lives at home alone. Supports: The patient reports that he has a son and daughter. The patient's daughter lives in [place] and his son lives in [place]. The patient's brother Jonathon lives in [place] and is a good support. Hospice: CM/SS visited with the patient about hospice services. CM/SS provided information on the disciplines offered and the services/goal of hospice. The patient verbalized understanding but stated he does not want hospice at this time. The patient stated "I believe God will heal me". The patient reported that he is also not doing Chemo due to being "too fragile" SNF: The patient reports he is not ready for this sw to send a referral. The patient states "I'm not there yet". However, he verbalized that if he does go to a fci he would want [facility]. CM/SS will follow with physician plan of care.
[2020-04-09 16:00] VITALS: BP 156/71
--- NOTE | 2020-04-09 18:50 | Progress Note ---
Subjective Date Seen by a Provider: Apr 09, 2020 Time Seen by a Provider: 08:35 Subjective/Events-last exam Fwup acute rhabdomyolysis, hypokalemia, hypomagnesemia, right renal mass, bilateral pleural effusions, leukocytosis, weakness/debility, DMII, history of atrial fibrillation. Patient had swallow evaluation done this morning. Does complain of some back pain. Objective Exam Vital Signs Date Time Temp Pulse Resp B/P (MAP) Pulse Ox O2 Delivery O2 Flow Rate FiO2 04/09/20 16:00 36.5 60 18 156/71 (99) 96 Room Air 04/09/20 12:24 60 04/09/20 12:00 35.7 61 18 184/73 (110) 92 Room Air 04/09/20 08:00 36.1 65 20 195/87 (123) 91 Room Air 04/09/20 07:30 94 Room Air 0.00 04/09/20 06:46 60 04/09/20 04:22 36.2 60 21 182/80 (114) 94 Room Air 04/09/20 01:00 60 04/08/20 23:04 36.4 60 20 149/67 (94) 96 Room Air 04/08/20 20:00 37.0 60 18 159/68 (98) 95 Room Air 04/08/20 19:45 Room Air 04/08/20 19:00 60 I & O 04/09/20 07:00 Intake Total 2590 ml Output Total 375 ml Balance 2215 ml Capillary Refill : Less Than 3 Seconds General Appearance: No Apparent Distress Respiratory: Lungs Clear, Decreased Breath Sounds Cardiovascular: Regular Rate, Rhythm, Systolic Murmur Gastrointestinal: normal bowel sounds, non tender, soft Extremity: Non Tender, No Calf Tenderness, No Pedal Edema Neurologic/Psychiatric: Alert, Oriented x3 Results Lab Laboratory Tests 04/08/20 20:01: Glucometer 164H 04/09/20 05:37: Glucometer 135H 04/09/20 06:15: White Blood Count 17.5H, Red Blood Count 3.60L, Hemoglobin 9.7L, Hematocrit 32L, Mean Corpuscular Volume 88, Mean Corpuscular Hemoglobin 27, Mean Corpuscular Hemoglobin Concent 31L, Red Cell Distribution Width 16.1H, Platelet Count 399, Mean Platelet Volume 9.5, Sodium Level 137, Potassium Level 4.4, Chloride Level 104, Carbon Dioxide Level 24, Anion Gap 9, Blood Urea Nitrogen 20H, Creatinine 0.77, Estimat Glomerular Filtration Rate > 60, BUN/Creatinine Ratio 26, Glucose Level 144H, Calcium Level 8.1L, Corrected Calcium 9.0, Magnesium Level 1.8, Total Bilirubin 0.6, Aspartate Amino Transf (AST/SGOT) 16, Alanine Aminotransferase (ALT/SGPT) 17, Alkaline Phosphatase 107, Total Protein 5.8L, Albumin 2.9L 04/09/20 16:14: Glucometer 173H Microbiology 04/06/20 Blood Culture - Preliminary, Resulted No growth Assessment/Plan Assessment/Plan Assess & Plan/Chief Complaint 1. Acute Rhabdomyolysis--improving with hydration 2. Hypokalemia/Hypomagnesemia--improved 3. Right Renal Mass--awaiting biopsy by radiology 4. Bilateral Pleural Effusions--improving 5. DMII--on SSI 6. Hypertension--increase metoprolol and continue amlodopine 7. Weakness/Debility--PT/OT started, will need skilled nursing NH placement--patient has went for SNF in past but would not stay 8. History of Atrial Fibrillation--stable 9. COPD/Tobacco Abuse--ongoing GLADYS ORONA DO Apr 09, 2020 18:50
[2020-04-09 19:16] VITALS: BP 164/71
[2020-04-09] MEDS: meTOprolol SUCCINATE 100 MG (TOPROL XL) TAB PO SCH (21:07)
[2020-04-10] VITALS (7 sets, daily range): BP systolic 139–184; BP diastolic 65–81
[2020-04-10] MEDS: NS W/KCL 20 MEQ/L 1,000 ML IV SCH (04:39)
[2020-04-10 05:51] LABS: HEMOGLOBIN 9.9 g/dL (13.3-17.7); MEAN PLATELET VOLUME 9.7 fL (9.0-12.2); WHITE BLOOD COUNT 15.9 10^3/uL (4.3-11.0)
[2020-04-10 06:07] LABS: ALBUMIN 2.9 GM/DL (3.2-4.5); CHLORIDE 105 MMOL/L (98-107); POTASSIUM 4.9 MMOL/L (3.6-5.0); SODIUM 137 MMOL/L (135-145)
[2020-04-10 06:08] LABS: CALCIUM 8.3 MG/DL (8.5-10.1)
[2020-04-10 06:09] LABS: GLUCOSE 178 MG/DL (70-105); TOTAL PROTEIN 5.9 GM/DL (6.4-8.2)
[2020-04-10 06:10] LABS: CARBON DIOXIDE 24 MMOL/L (21-32)
[2020-04-10 06:11] LABS: BILIRUBIN,TOTAL 0.5 MG/DL (0.1-1.0)
[2020-04-10 06:13] LABS: ALKALINE PHOSPHATASE 107 U/L (40-136); CREATININE SERUM 0.75 MG/DL (0.60-1.30); GFR ESTIMATED > 60
[2020-04-10 06:14] LABS: BUN/CREATININE RATIO 25
[2020-04-10 06:16] LABS: ALANINE AMINOTRANSFERASE 19 U/L (0-55); MAGNESIUM 1.7 MG/DL (1.6-2.4)
[2020-04-10] MEDS: inSUlin ASPART (NovoLOG) 1 UNIT/0.01 ML (CHARGE PER UNIT) SC SCH ×4 (06:30→20:10)
[2020-04-10] MEDS: MAGNESIUM OXIDE (MAG-OX)400 MG TAB PO SCH (08:12)
[2020-04-10] MEDS: TAMSULOSIN 0.4 MG (FLOMAX) CAP PO SCH (08:12)
[2020-04-10] MEDS: KCL 20 MEQ TAB (K-DUR) PO SCH (08:12)
[2020-04-10] MEDS: FINASTERIDE (PROSCAR) 5 MG TAB PO SCH (08:12)
[2020-04-10] MEDS: amLODIPine 10 MG (NORVASC) TAB PO SCH (08:12)
[2020-04-10] MEDS: PANTOPRAZOLE 40 MG (PROTONIX) VIAL IV SCH (08:13)
--- NOTE | 2020-04-10 08:14 | Progress Note ---
Subjective Subjective Date Seen by Provider: Apr 10, 2020 Time Seen by Provider: 07:50 Fwup acute rhabdomyolysis, hypokalemia, hypomagnesemia, right renal mass, bilateral pleural effusions, leukocytosis, weakness/debility, DMII, history of atrial fibrillation. Milad reports he felt confused last night, mixed up bath room door with door to the hallway. States he feels better now, but admits depression due to cancer diagnosis. No new complaint of pain. States he slept well. All Other Systems Reviewed All Other Systems Reviewed: Yes Objective Exam Vital Signs Vital Signs - First Documented 04/06/20 04/08/20 17:56 07:30 Temp 36.3 Pulse 64 Resp 18 B/P (MAP) 194/84 (120) Pulse Ox 100 O2 Delivery Room Air O2 Flow Rate 0.00 Capillary Refill : Less Than 3 Seconds General Appearance: No Apparent Distress, Cachetic Eyes: Bilateral Eye Normal Inspection, Bilateral Eye PERRL, Bilateral Eye EOMI HEENT: PERRL/EOMI, Pharynx Normal, Other (THICK MUCOUS - PT SPITTING OUT CRUSHED PILLS WHILE I WAS IN THE ROOM WITH A THICK STRING OF SPUTUM COMING OUT WITH THE PILL DEBRIS) Neck: Full Range of Motion, Normal Inspection, Non Tender, Supple, Carotid Bruit Respiratory: Lungs Clear, Decreased Breath Sounds (especially lower lobes bilaterally) Cardiovascular: Regular Rate, Rhythm, Systolic Murmur, Other (pacemaker in place) Gastrointestinal: Normal Bowel Sounds, No Pulsatile Mass, Non Tender, Soft Rectal: Deferred Genital/Rectal: Other (keane catheter in place, minimal clear yellow urine in collection bag, no blood) Back: Other (KYPHOSIS) Extremity: Non Tender, No Calf Tenderness, Pedal Edema (2+ bilaterally) Neurologic/Psychiatric: Alert, Oriented x3 Skin: Normal Color, Warm/Dry Lymphatic: No Adenopathy Results Lab Laboratory Tests 04/09/20 16:14: Glucometer 173H 04/09/20 20:10: Glucometer 205H 04/10/20 05:16: White Blood Count 15.9H, Red Blood Count 3.66L, Hemoglobin 9.9L, Hematocrit 32L, Mean Corpuscular Volume 89, Mean Corpuscular Hemoglobin 27, Mean Corpuscular Hemoglobin Concent 31L, Red Cell Distribution Width 16.1H, Platelet Count 419H, Mean Platelet Volume 9.7, Sodium Level 137, Potassium Level 4.9, Chloride Level 105, Carbon Dioxide Level 24, Anion Gap 8, Blood Urea Nitrogen 19H, Creatinine 0.75, Estimat Glomerular Filtration Rate > 60, BUN/Creatinine Ratio 25, Glucose Level 178H, Calcium Level 8.3L, Corrected Calcium 9.2, Magnesium Level 1.7, Total Bilirubin 0.5, Aspartate Amino Transf (AST/SGOT) 14, Alanine Aminotransferase (ALT/SGPT) 19, Alkaline Phosphatase 107, Total Protein 5.9L, Albumin 2.9L Microbiology 04/06/20 Blood Culture - Preliminary, Resulted No growth Assessment/Plan Assessment/Plan Admission Dx fall CHF pleural effusions intra-abdominal mass, appears to be metastatic, awaiting biopsy Assessment and Plan Per medical student CHF, pleural effusions, passive atelectasis: start lasix 40mg, monitor renal function increase magnesium oxide to counter furosemide (Mg decreased to 1.7 today, was hypomagnesemic) hypocalcemia up to 8.3 from 8.1 depression start Venlafaxine 75mg ER Supervisory-Addendum Brief Verification & Attestation Participated in pt care: history, physical Personally performed: exam, supervision of care Care discussed with: Medical Student Procedures: n/a Agree with above assessment but will start duloxetine instead of venlexafine. Will discuss biopsy with radiology. ARIANNA MAN MED STUDENT Apr 10, 2020 08:14 GLADYS ORONA DO Apr 10, 2020 08:48
[2020-04-10] MEDS ORDERED: FUROSEMIDE 40 MG/4 ML INJ (LASIX) IVP ONE (08:45)
[2020-04-10] MEDS ORDERED: KCL 20 MEQ TAB (K-DUR) PO ONE (08:45)
[2020-04-10] MEDS: DULoxetine 30 MG (CYMBALTA) CAP PO SCH (09:21)
--- NOTE | 2020-04-10 10:25 | Physical Therapy Progress Note ---
Therapy Progress Note Patient declined PT due to up multiple time secondary to BM's. PT attempted to educate patient on importance of exercise and ambulation to improve mobility and strength, however, patient continued to decline. PT will attempt later today. 1 ref ([id number]) SRI ABDI PT Apr 10, 2020 10:25
--- NOTE | 2020-04-10 10:30 | NUR ---
PALLIATIVE CARE RN in to see patient. He is a frail looking man, pale dry skin. Oriented and somewhat depressed sounding. He is aware that he is going to have a needle biopsy of the mass found on or near his spine. He reports having to be off aspirin before hand. He does say he lives at home by himself and he was doing fine until he wound up on the floor. He reports he will think about a SNF again but is "probably not going to go". Will continue to monitor and offer support as needed. Will see when Biopsy is complete if there are treatment options..
--- NOTE | 2020-04-10 11:24 | Physical Therapy Daily Note ---
PT Daily Note-Current Subjective Patient reluctantly agrees to PT. Mental Status Patient Orientation: Normal For Age Attachments: Rasmussen Catheter, IV Transfers SCALE: Activities may be completed with or without assistive devices. 6-Mymlqziala-pohvgxw completes the activity by him/herself with no assistance from a helper. 5-Set-up or Clean-up Assistance-helper sets up or cleans up; patient completes activity. [place] assists only prior to or following the activity. 4-Supervision or Touching Assistance-helper provides verbal cues and/or touching/steadying and/or contact guard assistance as patient completes activity. Assistance may be provided throughout the activity or intermittently. 3-Partial/Moderate Assistance-helper does LESS THAN HALF the effort. [place] lifts, holds or supports trunk or limbs, but provides less than half the effort. 2-Substantial/Maximal Assistance-helper does MORE THAN HALF the effort. [place] lifts or holds trunk or limbs and provides more than half the effort. 2-Dvsftzkdn-tjnjun does ALL the effort. Patient does none of the effort to complete the activity. Or, the assistance of 2 or more helpers is required for the patient to complete the activity. If activity was not attempted, code reason: 7-Patient Refused. 9-Not Applicable-not attempted and the patient did not perform the activity before the current illness, exacerbation or injury. 10-Not Attempted due to Environmental Limitations-(lack of equipment, weather restraints, etc.). 88-Not Attempted due to Medical Conditions or Safety Concerns. Lying to Sitting/Side of Bed(Q: 5 Sit to Stand (QC): 4 Chair/Kdi-fi-Syeio Xfer(QC): 4 CGA for safety with sit to stand and transfer to recliner Gait Training Does the Patient Walk?: Yes Distance: 50' Walk 10 feet (QC): 3 Walk 50 ft with 2 Turns(QC): 3 Walk 150 ft (QC): 88 Gait Assistive Device: FWW slow, steady gait sequence Exercises Seated Therapy Exercises: Ankle pumps, Long arc quads, Hip flexion Seated Reps: 15 Assessment Patient tolerates minimal activity and ceases treatment due to fatigue. Patient is up in recliner with needs met. PT Auto Body Repair Technician Goals Auto Body Repair Technician Goals PT [facility] Goals Time Frame: Apr 21, 2020 Roll Left & Right (QC): 4 Sit to Lying (QC): 4 Lying-Sitting on Side/Bed(QC): 4 Sit to Stand (QC): 4 Chair/Ixp-ba-Dczaw Xfer(QC): 4 Toilet Transfer (QC): 4 Does the Patient Walk: Yes Walk 10 feet (QC): 4 Walk 50ft with 2 Turns (QC): 4 PT Plan Treatment/Plan Treatment Plan: Continue Plan of Care Treatment Plan: Bed Mobility, Education, Functional Activity Kevan, Functional Strength, Gait, Safety, Therapeutic Exercise, Transfers Treatment Duration: Apr 21, 2020 Frequency: 6 times per week Estimated Hrs Per Day: .5 hour per day Patient and/or Family Agrees t: Yes Time/GCodes Time In: 1105 Time Out: 1118 Total Billed Treatment Time: 13 Total Billed Treatment 1 visit FA 13 min SRI ABDI PT Apr 10, 2020 11:24
--- NOTE | 2020-04-10 12:54 | NUR ---
CM/SS follow up. The patient was sitting up in the chair watching t.v. at time of this visit. The patient reports that he is doing the same as yesterday. He voiced concern about when lunch was coming but stated that he is "never hungry". The patient reported that he is uncomfortable sitting in the chair and wishes to return to bed. The primary care nurse and aide assisted him back to bed. CM/SS attempted to discuss discharge planning with the patient. He states that he is still not interested in a [facility] facility at this time. He continued to say "we will just have to see". CM/SS discussed safety issues with the patient at current physical level. He verbalized understanding. The patient reports that his brother could not take care of him physically but he wondered about private caregivers but stated "we will have to see". CM/SS will continue to follow.
--- NOTE | 2020-04-10 14:39 | NUR ---
"RD ASSESSMENT PMHx: afib; CAD; hypercholesterolemia; HTN; TIA; chronic UTI; GERD; DM; PT INTERACTION: Pt was awake and pleasant during nutrition consult for MST score. Pt states current appetite is not good, and has been this way for quite a while. Note avg PO intake 33% x3d, per chart review. Pt states following a regular diet at home, and has some issues with chewing/swallowing food. Pt states some recent issues with diarrhea. Note last BM was 04/09, and pt not currently on bowel regimen per chart review. Pt states recent 25-30# wt loss, but was unsure of timeframe. Note recent 9# wt gain x2mon, per chart review. Pt states current DM management is good. Note unable to determine recent HbA1c, per chart review. Given wt hx, and PO intake, pt does not meet criteria for malnutrition per ASPEN guidelines. Est. kcal needs: 0508-2083 kcal | 30-35 kcal/kg Est. Pro needs: 55-66 g Pro | 1.0-1.2 g Pro/kg PES STATEMENT: Inadequate oral intake (NI-2.1) related to loss of appetite, and diarrhea, as evidenced by pt interview and avg PO intake 33% x3d. INTERVENTION: Continue with current diet order of DYS2 Mechanically Altered diet. Add Ensure Enlive to meals TID, for increased kcal intake. Provides 350 kcal and 20 g Pro per serving. Offered diet education on DM management, but pt declined at this time. Will continue to follow and reassess as pt needs, intake, and status change. Suraj REYES, MS RD LD [phone] cell"
[2020-04-10] MEDS: meTOprolol SUCCINATE 100 MG (TOPROL XL) TAB PO SCH (20:10)
[2020-04-11] MEDS: NS W/KCL 20 MEQ/L 1,000 ML IV SCH ×2 (00:57→18:31)
[2020-04-11 04:31] VITALS: BP 160/73
[2020-04-11] MEDS: inSUlin ASPART (NovoLOG) 1 UNIT/0.01 ML (CHARGE PER UNIT) SC SCH ×4 (05:41→20:22)
[2020-04-11 06:25] LABS: INR 1.2 (0.8-1.4)
[2020-04-11 08:00] VITALS: BP 182/76
--- NOTE | 2020-04-11 08:03 | Progress Note ---
Subjective Subjective Date Seen by Provider: Apr 11, 2020 Time Seen by Provider: 08:35 F/u on CHF, pleural effusions, intraabdominal mass, hypokalemia & rhabdomyolysis after a fall, depression. Yon has been NPO in preparation for biopsy. He was sleeping when I entered the room, states he doesn't want to be bothered, responds tersely if at all to questions, and is determined to return to sleep. Was placed on 2L oxygen at 4 am due to sats 89% on RA. Denies new complaints, says does not know whether SOB is worse than usual. per charts, was noncompliant with therapy yesterday. All Other Systems Reviewed All Other Systems Reviewed: Yes Objective Exam Vital Signs Vital Signs - First Documented 04/06/20 04/08/20 17:56 07:30 Temp 36.3 Pulse 64 Resp 18 B/P (MAP) 194/84 (120) Pulse Ox 100 O2 Delivery Room Air O2 Flow Rate 0.00 Capillary Refill : Less Than 3 Seconds General Appearance: No Apparent Distress, Cachetic Eyes: Bilateral Eye Normal Inspection, Bilateral Eye PERRL, Bilateral Eye EOMI HEENT: PERRL/EOMI, Pharynx Normal Neck: Full Range of Motion, Normal Inspection, Non Tender, Supple, Carotid Bruit Respiratory: Lungs Clear, Decreased Breath Sounds (especially right upper lobe, right lower lobe) Cardiovascular: Regular Rate, Rhythm, Systolic Murmur, Other (pacemaker in place) Gastrointestinal: Normal Bowel Sounds, No Pulsatile Mass, Non Tender, Soft Rectal: Deferred Genital/Rectal: Other (keane catheter in place, minimal clear yellow urine in collection bag, no blood) Back: Other (KYPHOSIS) Extremity: Non Tender, No Calf Tenderness, Pedal Edema (2+ bilaterally) Neurologic/Psychiatric: Other (alert when asked questions, responds appropriately but with minimal words, irritable, attempts to return to sleep) Skin: Normal Color, Warm/Dry Lymphatic: No Adenopathy Results Lab Laboratory Tests 04/10/20 11:33: Glucometer 218H 04/10/20 15:42: Glucometer 202H 04/10/20 20:05: Glucometer 108 04/11/20 05:38: Glucometer 165H 04/11/20 05:50: Prothrombin Time 16.0H, INR Comment 1.2, Activated Partial Thromboplast Time 39H Microbiology 04/06/20 Blood Culture - Preliminary, Resulted No growth Assessment/Plan Assessment/Plan Admission Dx fall CHF pleural effusions intra-abdominal mass, appears to be metastatic, awaiting biopsy Assessment and Plan Per medical student Assessment: CHF with pleural effusions depression intraabdominal mass chronic back pain more diminished breath sounds on the right Plan: CXR to asses for atelectasis, infection, worsening effusion continue furosemide, duloxetine, IVF, current medications obtain CBC, CMP continue as NPO until biopsy encourage Ensure & eating afterwards restart aspirin after biopsy Admission Dx fall CHF pleural effusions intra-abdominal mass, appears to be metastatic, awaiting biopsy Clinical Quality Measures Admission Status Admission Dx fall CHF pleural effusions intra-abdominal mass, appears to be metastatic, awaiting biopsy Supervisory-Addendum Brief Verification & Attestation Participated in pt care: history, physical Personally performed: exam, supervision of care Care discussed with: Medical Student Procedures: n/a Give extra lasix this morning. Patient has refused to have biopsy done so will discuss this with him more tomorrow. Add SVNS with rosa. ARIANNA MAN MED STUDENT Apr 11, 2020 08:03 GLADYS ORONA DO Apr 11, 2020 16:56
[2020-04-11] MEDS ORDERED: NS IV 1000 ML 1,000 ML IV STA (08:08)
[2020-04-11] MEDS ORDERED: LIDOCAINE 1% INJ 20 ML 20 ML VIAL INJ ONE (08:15)
[2020-04-11] MEDS ORDERED: MIDAZOLAM 2 MG/2 ML (VERSED) VIAL IVP ONE (08:15)
[2020-04-11] MEDS ORDERED: fentaNYL INJECTION 100 MCG/2 ML AMP IVP ONE (08:15)
[2020-04-11] MEDS: PANTOPRAZOLE 40 MG (PROTONIX) VIAL IV SCH (08:23)
--- NOTE | 2020-04-11 08:30 | NUR ---
When attempting to get consent for the patient CT needle biopsy patient states "I don't want it." Dr. Clemente notified at this time.
[2020-04-11] MEDS ORDERED: FUROSEMIDE 40 MG/4 ML INJ (LASIX) IVP NR (08:45)
[2020-04-11] MEDS ORDERED: KCL 20 MEQ TAB (K-DUR) PO NR (08:45)
[2020-04-11 09:27] LABS: HEMOGLOBIN 10.5 g/dL (13.3-17.7); MEAN PLATELET VOLUME 9.4 fL (9.0-12.2); WHITE BLOOD COUNT 14.4 10^3/uL (4.3-11.0)
[2020-04-11 09:43] LABS: ALANINE AMINOTRANSFERASE 19 U/L (0-55); ALBUMIN 2.9 GM/DL (3.2-4.5); ALKALINE PHOSPHATASE 106 U/L (40-136); BILIRUBIN,TOTAL 0.7 MG/DL (0.1-1.0); BUN/CREATININE RATIO 22; CALCIUM 8.5 MG/DL (8.5-10.1); CARBON DIOXIDE 21 MMOL/L (21-32); CHLORIDE 105 MMOL/L (98-107); CREATININE SERUM 0.81 MG/DL (0.60-1.30); GFR ESTIMATED > 60; GLUCOSE 163 MG/DL (70-105); POTASSIUM 5.1 MMOL/L (3.6-5.0); SODIUM 137 MMOL/L (135-145); TOTAL PROTEIN 5.9 GM/DL (6.4-8.2)
[2020-04-11] MEDS: MAGNESIUM OXIDE (MAG-OX)400 MG TAB PO SCH (09:54)
[2020-04-11] MEDS: TAMSULOSIN 0.4 MG (FLOMAX) CAP PO SCH (09:54)
[2020-04-11] MEDS: DULoxetine 30 MG (CYMBALTA) CAP PO SCH (09:54)
[2020-04-11] MEDS: amLODIPine 10 MG (NORVASC) TAB PO SCH (09:54)
[2020-04-11] MEDS: KCL 20 MEQ TAB (K-DUR) PO SCH (09:54)
[2020-04-11] MEDS: FINASTERIDE (PROSCAR) 5 MG TAB PO SCH (09:54)
--- NOTE | 2020-04-11 11:26 | Physical Therapy Daily Note ---
PT Daily Note-Current Subjective Patient in bed pre tx, agrees reluctantly to PT, voices no complaints of pain. Appearance Patient in recliner post tx with nurse call, phone, tray, all needs met, chair alarm on Mental Status Patient Orientation: Person, Confused Attachments: Oxygen, IV Transfers SCALE: Activities may be completed with or without assistive devices. 0-Ctvwgjxajp-suwmcsm completes the activity by him/herself with no assistance from a helper. 5-Set-up or Clean-up Assistance-helper sets up or cleans up; patient completes activity. [place] assists only prior to or following the activity. 4-Supervision or Touching Assistance-helper provides verbal cues and/or touching/steadying and/or contact guard assistance as patient completes activity. Assistance may be provided throughout the activity or intermittently. 3-Partial/Moderate Assistance-helper does LESS THAN HALF the effort. [place] lifts, holds or supports trunk or limbs, but provides less than half the effort. 2-Substantial/Maximal Assistance-helper does MORE THAN HALF the effort. [place] lifts or holds trunk or limbs and provides more than half the effort. 3-Wnzmygywm-yknxbx does ALL the effort. Patient does none of the effort to complete the activity. Or, the assistance of 2 or more helpers is required for the patient to complete the activity. If activity was not attempted, code reason: 7-Patient Refused. 9-Not Applicable-not attempted and the patient did not perform the activity before the current illness, exacerbation or injury. 10-Not Attempted due to Environmental Limitations-(lack of equipment, weather restraints, etc.). 88-Not Attempted due to Medical Conditions or Safety Concerns. Roll Left & Right (QC): 3 Lying to Sitting/Side of Bed(Q: 3 Sit to Stand (QC): 3 Chair/Nsz-gv-Muswv Xfer(QC): 3 Mod assist for supine to sit and sit to stand. Patient ambulates a few feet to the recliner but barely makes it, as he turns his bottom toward the chair he lunges at the chair and therapist has to guide patient into chair to keep him from landing on the floor. Gait Training Distance: 5' Gait Persons Needed: 1 Gait Assistive Device: FWW min assist, needs assist guiding walker Exercises attempted lower extremity exercises but patient will not follow directions Assessment Current Status: Poor Progress more assistance needed for functional mobility, less distance of ambulation and more confusion PT Correction Goals Charting Clerk Goals PT Charting Clerk Goals Time Frame: Apr 21, 2020 Roll Left & Right (QC): 4 Sit to Lying (QC): 4 Lying-Sitting on Side/Bed(QC): 4 Sit to Stand (QC): 4 Chair/Faf-kx-Wscsh Xfer(QC): 4 Toilet Transfer (QC): 4 Does the Patient Walk: Yes Walk 10 feet (QC): 4 Walk 50ft with 2 Turns (QC): 4 PT Plan Problem List Problem List: Activity Tolerance, Functional Strength, Safety, Balance, Gait, Transfer, Bed Mobility, ROM Treatment/Plan Treatment Plan: Continue Plan of Care Treatment Plan: Bed Mobility, Education, Functional Activity Kevan, Functional Strength, Gait, Safety, Therapeutic Exercise, Transfers Treatment Duration: Apr 21, 2020 Frequency: 6 times per week Estimated Hrs Per Day: .5 hour per day Patient and/or Family Agrees t: Yes Safety Risks/Education Patient Education: Gait Training, Transfer Techniques, Correct Positioning, Safety Issues Teaching Recipient: Patient Teaching Methods: Demonstration, Discussion Response to Teaching: Reinforcement Needed Time/GCodes Time In: 1058 Time Out: 1110 Total Billed Treatment Time: 12 Total Billed Treatment 1 visit FA ROSA M JIMÉNEZ PT Apr 11, 2020 11:26
[2020-04-11 12:00] VITALS: BP_SYST 143; BP_SYST 144; BP_DIAS 66; BP_DIAS 73
--- NOTE | 2020-04-11 12:55 | Diagnostic Imaging Report ---
INDICATION: Dyspnea. TIME OF EXAM: 12:44 p.m. COMPARISON: Correlation is made with prior exam from 04/09/2020. FINDINGS: Cardiac pacemaker is in place. Patient continues to have infiltrate and pleural fluid on the right which is similar to perhaps slightly increased. There also appears to be some increasing central congestion. There may be some increasing infiltrate in the left base. There is no pneumothorax identified. IMPRESSION: Increasing congestive changes with slight increase in right basilar effusion and right basilar infiltrate when compared with examination two days earlier. Dictated by: Dictated on workstation # [id number]
--- NOTE | 2020-04-11 14:49 | NUR ---
Spoke with and updated patients designated family member (cristhian) at this time.
--- NOTE | 2020-04-11 15:24 | NUR ---
CM/SS follow up. The patient was resting and this sw did not wake the patient. CM/SS provided updated to Dr. Clemente that the patient has denied shelter stay at this time. CM/SS will follow with physician plan of care.
[2020-04-11 16:00] VITALS: BP 154/70
--- NOTE | 2020-04-11 17:05 | NUR ---
Patient acting annoyed, continuously raising voice because staff is unable to understand him. Words are completely incomprehensible. BP 180/75, HR 60, resp 24, oxygen saturation 92%
[2020-04-11] MEDS ORDERED: PIPERACILLIN/TAZO 4.5 GM/NS 100 ML IV NR ×2 (17:30)
--- NOTE | 2020-04-11 19:56 | Diagnostic Imaging Report ---
PROCEDURE: CT head without contrast. TECHNIQUE: Multiple contiguous axial images were obtained through the brain without the use of intravenous contrast. Auto Exposure Controls were utilized during the CT exam to meet ALARA standards for radiation dose reduction. INDICATION: Increased confusion and difficulty with speech. COMPARISON: 04/06/2020. CT HEAD: CT images of the head were obtained. FINDINGS: Ventricles and sulci are within normal limits for size. There is no intracranial hemorrhage identified. There is no abnormal mass effect or shift of midline structures. IMPRESSION: Unremarkable CT of the head. Dictated by: Dictated on workstation # [id number]
[2020-04-11 20:00] VITALS: BP 160/70
[2020-04-11] MEDS: meTOprolol SUCCINATE 100 MG (TOPROL XL) TAB PO SCH (20:13)
[2020-04-11] MEDS: RT-ALBUTEROL/IPRATROPIUM 3 ML (DUONEB) VIAL INH SCH ×2 (21:20→21:24)
[2020-04-11] MEDS: ENOXAPARIN 40 MG/0.4 ML (LOVENOX) SYR SC SCH (21:54)
[2020-04-12] MEDS ORDERED: PIPERACILLIN/TAZOBACTAM (BULK) 4.5 GM in NS (IVPB) 100 ML IV SCH ×2
[2020-04-12 00:24] VITALS: BP 150/70
[2020-04-12] MEDS: RT-ALBUTEROL/IPRATROPIUM 3 ML (DUONEB) VIAL INH SCH ×3 (03:33→18:10)
[2020-04-12 04:00] VITALS: BP 168/75
[2020-04-12 05:41] LABS: BASOPHILS % (AUTO) 0 % (0-10); EOSINOPHILS % (AUTO) 0 % (0-10); HEMATOCRIT 34 % (40-54); HEMOGLOBIN 10.3 g/dL (13.3-17.7); LYMPHOCYTES # (AUTO) 0.8 10^3/uL (1.0-4.0); LYMPHOCYTES % (AUTO) 5 % (12-44); MEAN CORPUSCULAR HEMOGLOBIN 27 pg (25-34); MEAN CORPUSCULAR HGB CONC 31 g/dL (32-36); MEAN CORPUSCULAR VOLUME 88 fL (80-99); MEAN PLATELET VOLUME 9.8 fL (9.0-12.2); MONOCYTES # (AUTO) 0.7 10^3/uL (0.0-1.0); MONOCYTES % (AUTO) 4 % (0-12); NEUTROPHILS # (AUTO) 15.1 10^3/uL (1.8-7.8); NEUTROPHILS % (AUTO) 90 % (42-75); PLATELET COUNT 458 10^3/uL (130-400); WHITE BLOOD COUNT 16.7 10^3/uL (4.3-11.0)
[2020-04-12 06:01] LABS: BUN/CREATININE RATIO 27; CALCIUM 8.8 MG/DL (8.5-10.1); CARBON DIOXIDE 21 MMOL/L (21-32); CHLORIDE 106 MMOL/L (98-107); CREATININE SERUM 0.83 MG/DL (0.60-1.30); GFR ESTIMATED > 60; GLUCOSE 155 MG/DL (70-105); POTASSIUM 4.9 MMOL/L (3.6-5.0); SODIUM 139 MMOL/L (135-145)
[2020-04-12] MEDS: inSUlin ASPART (NovoLOG) 1 UNIT/0.01 ML (CHARGE PER UNIT) SC SCH ×4 (06:13→21:20)
[2020-04-12 06:40] LABS: ANISOCYTOSIS SLIGHT; LYMPHOCYTES % (MANUAL) 6 %; MICROCYTOSIS SLIGHT; MONOCYTES % (MANUAL) 5 %; NEUTROPHILS % (MANUAL) 89 %; POIKILOCYTOSIS SLIGHT
--- NOTE | 2020-04-12 08:10 | Progress Note ---
Subjective Subjective Date Seen by Provider: Apr 12, 2020 Time Seen by Provider: 07:50 F/u on CHF, pleural effusions, intraabdominal mass, hypokalemia & rhabdomyolysis after a fall, depression. Milad refused the biopsy yesterday. CXR showed increased infiltrate and pleural fluid yesterday without atelectasis. Milad was noted to be confused at 11am with PT yesterday and per RN note speech was unintelligible at [address] scan of head, negative COVID test. Zosyn started at that time. Today labs show WBC up to 16.7 from 14.9 yesterday, newly visualized slight poikolocytosis, acanthocytosis, and microcytosis. Milad is somnolent and very difficult to understand. States he has a headache, could not state when it started. Falling asleep between questions. Was 91% on 2L yesterday. Review of Systems ROS Unable to Obtain: patient's confusion All Other Systems Reviewed All Other Systems Reviewed: Yes Objective Exam Vital Signs Vital Signs - First Documented 04/06/20 04/08/20 17:56 07:30 Temp 36.3 Pulse 64 Resp 18 B/P (MAP) 194/84 (120) Pulse Ox 100 O2 Delivery Room Air O2 Flow Rate 0.00 Capillary Refill : Less Than 3 Seconds General Appearance: No Apparent Distress, Cachetic Eyes: Bilateral Eye Normal Inspection, Bilateral Eye PERRL, Bilateral Eye EOMI, Bilateral Eye Other (increased tearing, especially left eye) HEENT: PERRL/EOMI Neck: Full Range of Motion, Normal Inspection, Non Tender, Supple, Carotid Bruit Respiratory: Lungs Clear, Decreased Breath Sounds (especially right lower lobe) Cardiovascular: Regular Rate, Rhythm, Systolic Murmur, Other (pacemaker in place) Gastrointestinal: Normal Bowel Sounds, No Pulsatile Mass, Non Tender, Soft Rectal: Deferred Genital/Rectal: Other (keane catheter in place, minimal clear yellow urine in collection bag, no blood) Back: Other (KYPHOSIS) Extremity: Non Tender, No Calf Tenderness, Pedal Edema (2+ bilaterally) Neurologic/Psychiatric: Other (alert when asked questions, responds appropriately but with minimal words, irritable, attempts to return to sleep) Skin: Normal Color, Warm/Dry Lymphatic: No Adenopathy Results Lab Laboratory Tests 04/11/20 09:17: White Blood Count 14.4H, Red Blood Count 3.89L, Hemoglobin 10.5L, Hematocrit 34L , Mean Corpuscular Volume 88, Mean Corpuscular Hemoglobin 27, Mean Corpuscular Hemoglobin Concent 31L, Red Cell Distribution Width 16.3H, Platelet Count 403H, Mean Platelet Volume 9.4, Sodium Level 137, Potassium Level 5.1H, Chloride Level 105, Carbon Dioxide Level 21, Anion Gap 11, Blood Urea Nitrogen 18, Creatinine 0.81, Estimat Glomerular Filtration Rate > 60, BUN/Creatinine Ratio 22, Glucose Level 163H, Calcium Level 8.5, Corrected Calcium 9.4, Total Bilirubin 0.7, Aspartate Amino Transf (AST/SGOT) 16, Alanine Aminotransferase (ALT/SGPT) 19, Alkaline Phosphatase 106, B-Type Natriuretic Peptide 596.3H, Total Protein 5.9L, Albumin 2.9L 04/11/20 12:13: Glucometer 170H 04/11/20 16:16: Glucometer 139H 04/11/20 17:24: Coronavirus 2019 ([facility]) Negative 04/11/20 20:10: Glucometer 163H 04/12/20 05:12: White Blood Count 16.7H, Red Blood Count 3.86L, Hemoglobin 10.3L, Hematocrit 34L , Mean Corpuscular Volume 88, Mean Corpuscular Hemoglobin 27, Mean Corpuscular Hemoglobin Concent 31L, Red Cell Distribution Width 16.2H, Platelet Count 458H, Mean Platelet Volume 9.8, Immature Granulocyte % (Auto) 1, Neutrophils (%) (Auto) 90H, Lymphocytes (%) (Auto) 5L, Monocytes (%) (Auto) 4, Eosinophils (%) (Auto) 0, Basophils (%) (Auto) 0, Neutrophils # (Auto) 15.1H, Lymphocytes # (Auto) 0.8L, Monocytes # (Auto) 0.7, Eosinophils # (Auto) 0.0, Basophils # (A uto) 0.0, Immature Granulocyte # (Auto) 0.1, Neutrophils % (Manual) 89, Lymphocytes % (Manual) 6, Monocytes % (Manual) 5, Poikilocytosis SLIGHT, Anisocytosis SLIGHT, Microcytosis SLIGHT, Sodium Level 139, Potassium Level 4.9, Chloride Level 106, Carbon Dioxide Level 21, Anion Gap 12, Blood Urea Nitrogen 22H, Creatinine 0.83, Estimat Glomerular Filtration Rate > 60, BUN/Creatinine Ratio 27, Glucose Level 155H, Calcium Level 8.8 Microbiology 04/06/20 Blood Culture - Preliminary, Resulted No growth Assessment/Plan Assessment/Plan Admission Dx fall CHF pleural effusions intra-abdominal mass, appears to be metastatic, awaiting biopsy Assessment and Plan Per medical student Assessment: CHF with pleural effusions depression intraabdominal mass chronic back pain confusion Plan: MRI continue Zosyn oxygen saturation check q6 hours B12 level Admission Dx fall CHF pleural effusions intra-abdominal mass, appears to be metastatic, awaiting biopsy Clinical Quality Measures Admission Status Admission Dx fall CHF pleural effusions intra-abdominal mass, appears to be metastatic, awaiting biopsy Supervisory-Addendum Brief Verification & Attestation Participated in pt care: history, physical Personally performed: exam, supervision of care Care discussed with: Medical Student Procedures: n/a Agree with above. Will check MRI due to concern of stroke but patient appears to be giving up as is refusing all procedures as well as therapies. Will change zosyn to cefepime as CXR was worse yesterday with elevated WBC count today ARIANNA MAN MED STUDENT Apr 12, 2020 08:10 GLADYS ORONA DO Apr 12, 2020 14:46
[2020-04-12 08:14] VITALS: BP 172/78
[2020-04-12] MEDS ORDERED: FUROSEMIDE 40 MG/4 ML INJ (LASIX) IVP NR (08:45)
--- NOTE | 2020-04-12 09:43 | NUR ---
Note appetite continues to be poor. Placed order for Glucerna with meals TID for increased kcal intake. Provides 220 kcal and 10 g Pro per serving. Indiana Brown, MS RD LD
[2020-04-12] MEDS: KCL 20 MEQ TAB (K-DUR) PO SCH (09:59)
--- NOTE | 2020-04-12 09:59 | NUR ---
PALLIATIVE CARE RN in to see patient. He is being attended to by a couple RNs. This RN noted patient to be grossly different in his mentation than he was on previous visit. His speech is garbled an not understandable. He is agitated with any interaction. Attempted to complete oral care and have EOL conversation but unable to at this time. Nursing indicated that CT was negative and he is unable to get MRI due to having a PACEMAKER. Doctor switched antibiotics this morning due to WBCs increased and the afore mentioned change in mental status. Will continue to monitor for discharge needs.
[2020-04-12] MEDS: amLODIPine 10 MG (NORVASC) TAB PO SCH (10:00)
[2020-04-12] MEDS: MAGNESIUM OXIDE (MAG-OX)400 MG TAB PO SCH (10:00)
[2020-04-12] MEDS: TAMSULOSIN 0.4 MG (FLOMAX) CAP PO SCH (10:00)
[2020-04-12] MEDS: DULoxetine 30 MG (CYMBALTA) CAP PO SCH (10:00)
[2020-04-12] MEDS: PANTOPRAZOLE 40 MG (PROTONIX) VIAL IV SCH (10:01)
[2020-04-12] MEDS: FINASTERIDE (PROSCAR) 5 MG TAB PO SCH (10:01)
--- NOTE | 2020-04-12 10:31 | Physical Therapy Progress Note ---
Therapy Progress Note Patient adamantly declined PT and requests this PT not return today. Patient turned to side and closed eyes and would not talk to this therapist after refusing. RN and SW notified. 1 ref ([phone]) SRI ABDI PT Apr 12, 2020 10:30
[2020-04-12 11:15] VITALS: BP 184/78
[2020-04-12] MEDS: NS W/KCL 20 MEQ/L 1,000 ML IV SCH (15:03)
[2020-04-12 16:18] VITALS: BP 161/72
[2020-04-12] MEDS: CEFEPIME INJECTION 1,000 MG in WATER (STERILE) FOR INJECTION 10 ML IV SCH ×2 (16:59→21:37)
[2020-04-12] MEDS ORDERED: HOLD METFORMIN - RECEIVED CONTRAST 20 ML VIAL IV SCH ×2 (17:15→21:15)
[2020-04-12] MEDS ORDERED: IOHEXOL 350 MG/ML 100 ML (OMNIPAQUE 350) VIAL IV ONE ×2 (17:15→21:15)
[2020-04-12] MEDS ORDERED: NS 100 ML (IVPB) BAG IV ONE ×2 (17:15→21:15)
--- NOTE | 2020-04-12 17:59 | NUR ---
Informed Dr Clemente regarding patients elevated BP times two, he refused all his po meds including BP meds. His last BP down slightly at 161/72.
[2020-04-12] MEDS ORDERED: meTOprolol 5 MG/5 ML (LOPRESSOR) VIAL IV PRN (19:15)
[2020-04-12 20:20] VITALS: BP 169/75
--- NOTE | 2020-04-12 21:17 | Diagnostic Imaging Report ---
INDICATION: Pneumonia. EXAMINATION: PA and lateral views of the chest were obtained. COMPARISON: Study of one day earlier. FINDINGS: There has been significant increase in pleural fluid with near complete opacification of the right hemithorax. There is also a moderate amount of left pleural fluid. Background pulmonary venous congestion is noted. No pneumothorax is seen. IMPRESSION: Increasing pleural fluid with near complete opacification of the right hemithorax. Dictated by: Dictated on workstation # [id number]
--- NOTE | 2020-04-12 21:31 | Diagnostic Imaging Report ---
PROCEDURE: CT angiography of the head and CT angiography of the neck with and without contrast. TECHNIQUE: Contiguous noncontrast images were obtained from the skull base through the vertex. After intravenous contrast administration, helical CT angiography of the neck was performed. Source data was reformatted into 3D MIP projections. Delayed post contrast acquisition was also obtained. Auto Exposure Controls were utilized during the CT exam to meet ALARA standards for radiation dose reduction. INDICATION: Agitation and speech difficulty. FINDINGS: Note is made of apparent large bilateral pleural effusions and consolidation and collapse of the visualized right upper lung. There is moderate amount of atherosclerotic calcification within the great vessels of the neck. Dense atherosclerotic plaque at the origin of the left internal carotid artery results in approximately 50% stenosis with approximately 20% stenosis at the origin of the left internal carotid artery. Both internal carotid arteries are tortuous in the neck with dense atherosclerotic calcification also seen in the cavernous portions. There appears to be high-grade stenosis at the origin of the dominant left vertebral artery. Right vertebral artery also demonstrates focal stenosis at its origin. No aneurysm, dissection or occlusion is identified. Basilar artery is widely patent. Anterior, middle and posterior cerebral arteries demonstrate patency without filling defect, stenosis or occlusion. No aneurysm or vascular malformation is identified. IMPRESSION: 1. Significant atherosclerotic disease involving the great vessels of the neck and skull base without high-grade stenosis or occlusion identified. No filling defect or territorial perfusion abnormality is identified in the brain. 2. Note is made of bilateral pleural fluid and consolidation and/or collapse of the right upper lobe. Dictated by: Dictated on workstation # [id number]
[2020-04-12] MEDS: ENOXAPARIN 40 MG/0.4 ML (LOVENOX) SYR SC SCH (21:37)
[2020-04-12] MEDS: meTOprolol SUCCINATE 100 MG (TOPROL XL) TAB PO SCH (21:37)
[2020-04-13 00:08] VITALS: BP 155/70
[2020-04-13] MEDS: RT-ALBUTEROL/IPRATROPIUM 3 ML (DUONEB) VIAL INH SCH ×2 (01:41→08:12)
[2020-04-13 04:08] VITALS: BP 157/71
[2020-04-13 05:09] LABS: MEAN PLATELET VOLUME 9.5 fL (9.0-12.2); WHITE BLOOD COUNT 18.2 10^3/uL (4.3-11.0)
[2020-04-13 05:21] LABS: CHLORIDE 103 MMOL/L (98-107); POTASSIUM 3.3 MMOL/L (3.6-5.0); SODIUM 139 MMOL/L (135-145)
[2020-04-13 05:22] LABS: CALCIUM 7.8 MG/DL (8.5-10.1)
[2020-04-13 05:23] LABS: GLUCOSE 125 MG/DL (70-105)
[2020-04-13 05:24] LABS: CARBON DIOXIDE 24 MMOL/L (21-32)
[2020-04-13 05:27] LABS: BUN/CREATININE RATIO 25; CREATININE SERUM 0.79 MG/DL (0.60-1.30); GFR ESTIMATED > 60
[2020-04-13] MEDS: inSUlin ASPART (NovoLOG) 1 UNIT/0.01 ML (CHARGE PER UNIT) SC SCH (05:51)
[2020-04-13] MEDS: CEFEPIME INJECTION 1,000 MG in WATER (STERILE) FOR INJECTION 10 ML IV SCH (05:51)
[2020-04-13 07:24] VITALS: BP 159/73
--- NOTE | 2020-04-13 09:32 | NUR ---
PALLIATIVE CARE RN it to see patient. He has been declining over the last couple days. Today he is mostly non verbal except for a grunt or 2 when asked about his brother. I have sent a sent a message for Dr. Clemente to find me when in the hospital regarding POC for this patient. May need to call his brother and discuss EOL care as he is refusing medications and interventions here in the hospital. Will continue to follow and offer support as needed.
--- NOTE | 2020-04-13 09:32 | Physical Therapy Daily Note ---
PT Daily Note-Current Subjective patient minimally responsive. Mental Status Patient Orientation: Mumbles, Listless Transfers SCALE: Activities may be completed with or without assistive devices. 3-Nlcvbgkymb-duvvyqd completes the activity by him/herself with no assistance from a helper. 5-Set-up or Clean-up Assistance-helper sets up or cleans up; patient completes activity. [place] assists only prior to or following the activity. 4-Supervision or Touching Assistance-helper provides verbal cues and/or touching/steadying and/or contact guard assistance as patient completes activity. Assistance may be provided throughout the activity or intermittently. 3-Partial/Moderate Assistance-helper does LESS THAN HALF the effort. [place] lifts, holds or supports trunk or limbs, but provides less than half the effort. 2-Substantial/Maximal Assistance-helper does MORE THAN HALF the effort. [place] lifts or holds trunk or limbs and provides more than half the effort. 1-Rmcfhxjpr-cfpiip does ALL the effort. Patient does none of the effort to complete the activity. Or, the assistance of 2 or more helpers is required for the patient to complete the activity. If activity was not attempted, code reason: 7-Patient Refused. 9-Not Applicable-not attempted and the patient did not perform the activity before the current illness, exacerbation or injury. 10-Not Attempted due to Environmental Limitations-(lack of equipment, weather restraints, etc.). 88-Not Attempted due to Medical Conditions or Safety Concerns. Roll Left & Right (QC): 1 (repositioned up in bed dependent assist x 2 with slight side lying to right with pillow placement) Exercises Supine Ex: Ankle pumps, Heel Slides Supine Reps: 12 (PROM) dry mill worker notified of patient status. Due to patient's current statue, PT to dismiss patient from services due to patient's inability to actively participate with skilled therapy. PT will reassess if/when patient improves medically. RN and SW notified. PT Residential Goals Residential Goals PT Residential Goals Time Frame: Apr 21, 2020 Roll Left & Right (QC): 4 Sit to Lying (QC): 4 Lying-Sitting on Side/Bed(QC): 4 Sit to Stand (QC): 4 Chair/Hnf-ap-Fqudg Xfer(QC): 4 Toilet Transfer (QC): 4 Does the Patient Walk: Yes Walk 10 feet (QC): 4 Walk 50ft with 2 Turns (QC): 4 PT Plan Treatment/Plan Treatment Plan: Discontinue PT Treatment Plan: Bed Mobility, Education, Functional Activity Kevan, Functional Strength, Gait, Safety, Therapeutic Exercise, Transfers Treatment Duration: Apr 21, 2020 Frequency: 6 times per week Estimated Hrs Per Day: .5 hour per day Patient and/or Family Agrees t: Yes Time/GCodes Time In: 825 Time Out: 833 Total Billed Treatment Time: 8 Total Billed Treatment 1 visit EX 8 min SRI ABDI PT Apr 13, 2020 09:32
[2020-04-13] MEDS ORDERED: ARTIFICAL TEARS 0.4 ML UNIT DOSE (REFRESH PLUS) OU PRN (10:30)
[2020-04-13] MEDS ORDERED: LORazepam INJ 2 MG/ML (ATIVAN) VIAL IVP PRN (10:30)
[2020-04-13] MEDS ORDERED: GLYCOPYRROLATE 0.2 MG/ML (ROBINUL) 2 ML VIAL IV PRN (10:30)
[2020-04-13] MEDS ORDERED: ONDANSETRON 4 MG/2 ML (SDV) Z0FRAN IVP PRN (10:30)
[2020-04-13] MEDS ORDERED: RT-ALBUTEROL/IPRATROPIUM 3 ML (DUONEB) VIAL INH PRN (10:30)
[2020-04-13] MEDS ORDERED: PROMETHAZINE INJ 25 MG/ML (PHENERGAN) AMP IVP PRN (10:30)
[2020-04-13] MEDS ORDERED: SALIVA STIMULANT MOUTH SPRAY (BIOTENE) 1.5 OZ MM PRN (10:30)
[2020-04-13] MEDS ORDERED: morphine INJ 4 MG/ML 1 ML (VIAL/SYRINGE) IV PRN (10:30)
[2020-04-13] MEDS ORDERED: BISACODYL 10 MG SUPP (DULCOLAX) PR PRN (10:30)
[2020-04-13] MEDS ORDERED: ACETAMINOPHEN 650 MG SUPP (TYLENOL) PR PRN (10:30)
--- NOTE | 2020-04-13 10:36 | Progress Note ---
Subjective Date Seen by a Provider: Apr 13, 2020 Time Seen by a Provider: 10:33 Subjective/Events-last exam Fwup acute rhabdomyolysis, hypokalemia, hypomagnesemia, right renal mass, bilateral pleural effusions, leukocytosis, weakness/debility, DMII, history of atrial fibrillation. Patient awake and answers yes and no and okay but otherwise garbled sentences. CXR looks much worse. I discussed grave condition with both his brother and daughter and they agree with comfort care. Objective Exam Vital Signs Date Time Temp Pulse Resp B/P (MAP) Pulse Ox O2 Delivery O2 Flow Rate FiO2 04/13/20 08:12 90 Room Air 04/13/20 07:24 36.4 60 16 159/73 (101) 96 Nasal Cannula 1.00 04/13/20 07:00 60 04/13/20 04:08 36.5 60 18 157/71 (99) 96 Nasal Cannula 2.00 04/13/20 01:41 93 Nasal Cannula 2.00 04/13/20 01:00 60 04/13/20 00:08 36.4 60 20 155/70 (98) 94 Room Air 04/12/20 20:20 36.6 60 16 169/75 (106) 91 Room Air 04/12/20 19:45 Nasal Cannula 2.00 04/12/20 19:00 60 04/12/20 18:10 93 Nasal Cannula 2.00 04/12/20 16:18 36.5 60 16 161/72 (101) 96 Nasal Cannula 2.00 04/12/20 12:30 60 04/12/20 11:15 36.8 59 20 184/78 (113) 96 Nasal Cannula 2.00 I & O 04/13/20 07:00 Intake Total 20 ml Output Total 5750 ml Balance -5730 ml Capillary Refill : Less Than 3 SecondsLess Than 3 Seconds General Appearance: No Apparent Distress Respiratory: Decreased Breath Sounds Cardiovascular: Regular Rate, Rhythm Extremity: Pedal Edema Neurologic/Psychiatric: Alert, Disoriented Results Lab Laboratory Tests 04/12/20 11:14: Glucometer 151H 04/12/20 16:00: Glucometer 143H 04/12/20 20:26: Glucometer 135H 04/13/20 05:00: White Blood Count 18.2H, Red Blood Count 3.60L, Hemoglobin 10.0L, Hematocrit 31L , Mean Corpuscular Volume 87, Mean Corpuscular Hemoglobin 28, Mean Corpuscular Hemoglobin Concent 32, Red Cell Distribution Width 16.3H, Platelet Count 374, Mean Platelet Volume 9.5, Sodium Level 139, Potassium Level 3.3L, Chloride Level 103, Carbon Dioxide Level 24, Anion Gap 12, Blood Urea Nitrogen 20H, Creatinine 0.79, Estimat Glomerular Filtration Rate > 60, BUN/Creatinine Ratio 25, Glucose Level 125H, Calcium Level 7.8L Microbiology 04/06/20 Blood Culture - Final, Complete No growth Assessment/Plan Assessment/Plan Assess & Plan/Chief Complaint 1. Acute Rhabdomyolysis--resolved 2. Hypokalemia/Hypomagnesemia--improved 3. Right Renal Mass--refused biopsy 4. Bilateral Pleural Effusions/Right Sided Pneumonia--worsening with right lung almost completely hardeep out 5. DMII--on SSI 6. Hypertension--had switched to IV lopressor 7. Weakness/Debility--has been refusing PT/OT 8. History of Atrial Fibrillation--stable 9. COPD/Tobacco Abuse--ongoing Have decided to go to comfort care so will DC all therapies and start comfort care orders GLADYS ORONA DO Apr 13, 2020 10:36
--- NOTE | 2020-04-13 10:42 | NUR ---
Palliative Care RN found Dr. Clemente while she was in the hospital. She was able to talk to patient's brother and daughter about patient's declining health and the need to make him DNR and change POC to comfort driven approach. Dr. Clemente is putting in the order set. This RN will assist as needed.
[2020-04-13] MEDS: SCOPOLAMINE 1.5 MG (TRANSDERM-SCOP) PATCH TOP SCH (20:11)
--- NOTE | 2020-04-14 09:50 | Progress Note - Hospitalist ---
Subjective HPI/CC On Admission Date Seen by Provider: Apr 14, 2020 Time Seen by Provider: 09:49 Subjective/Events-last exam Pt has no complaints. Keeps stating "I need." but unable to tell me what he needs. Objective Exam Vital Signs Vital Signs Date Time Temp Pulse Resp B/P (MAP) Pulse Ox O2 Delivery O2 Flow Rate FiO2 04/13/20 20:05 Room Air 04/13/20 08:12 90 04/13/20 08:00 2.00 04/13/20 07:24 36.4 60 16 159/73 (101) Capillary Refill : Less Than 3 SecondsLess Than 3 Seconds General Appearance: Chronically ill, Cachetic Respiratory: Lungs Clear, No Respiratory Distress Cardiovascular: Regular Rate, Rhythm, No Murmur Neurologic/Psychiatric: Alert, Oriented x3 Results/Procedures Lab Patient resulted labs reviewed. Assessment/Plan Assessment and Plan Assess & Plan/Chief Complaint Renal mass with metastatic spread Patient and family have elected comfort measures only Appears comfort, informed RN of his need for something- she will get pen and paper to see if he can write request as unablet o verbalize it Continue comfort care orders Palliative consulted, appreciate SAVI Hernandez MD Apr 14, 2020 09:50
--- NOTE | 2020-04-15 09:27 | Progress Note - Hospitalist ---
Subjective HPI/CC On Admission Date Seen by Provider: Apr 15, 2020 Time Seen by Provider: 09:25 Subjective/Events-last exam Pt reports doing ok today. No complaints. States he would like to walk today if he can. Objective Exam Vital Signs Vital Signs Date Time Temp Pulse Resp B/P (MAP) Pulse Ox O2 Delivery O2 Flow Rate FiO2 04/14/20 20:00 Room Air 04/14/20 07:53 91 04/13/20 08:00 2.00 04/13/20 07:24 36.4 60 16 159/73 (101) Capillary Refill : Less Than 3 SecondsLess Than 3 Seconds General Appearance: No Apparent Distress, Chronically ill, Cachetic Respiratory: No Accessory Muscle Use Cardiovascular: Regular Rate, Rhythm, No Murmur Results/Procedures Lab Patient resulted labs reviewed. Assessment/Plan Assessment and Plan Assess & Plan/Chief Complaint Renal mass with metastatic spread Patient and family have elected comfort measures only Continue comfort care orders Palliative consulted, appreciate recs Would likely benefit from hospice at home SAVI ALVAREZ MD Apr 15, 2020 09:27
[2020-04-16] MEDS: SCOPOLAMINE 1.5 MG (TRANSDERM-SCOP) PATCH TOP SCH (10:35)
--- NOTE | 2020-04-16 10:49 | Progress Note ---
Subjective Date Seen by a Provider: Apr 16, 2020 Time Seen by a Provider: 10:48 Subjective/Events-last exam Fwup comfort care. Patient awake but confused. Objective Exam Vital Signs Date Time Temp Pulse Resp B/P (MAP) Pulse Ox O2 Delivery O2 Flow Rate FiO2 04/16/20 08:00 Room Air 04/16/20 07:28 90 Room Air 04/15/20 19:40 Room Air I & O 04/16/20 07:00 Intake Total 1297 ml Output Total 875 ml Balance 422 ml Capillary Refill : Less Than 3 SecondsLess Than 3 Seconds General Appearance: Mild Distress Neck: Supple Respiratory: Decreased Breath Sounds Cardiovascular: Systolic Murmur, Irregularly Irregular Neurologic/Psychiatric: Alert, Disoriented, Motor Weakness Skin: Warm/Dry Results Lab Microbiology 04/06/20 Blood Culture - Final, Complete No growth Assessment/Plan Assessment/Plan Assess & Plan/Chief Complaint 1. Patient on comfort care so will need NH with hospice GLADYS ORONA DO Apr 16, 2020 10:49
--- NOTE | 2020-04-16 10:49 | NUR ---
PALLIATIVE CARE RN in to see patient. He is alert today, pleasantly sweet. His speech is understandable today and not garbled like last week, however is is no appropriate for the conversations. He will say random off the wall things, such as "Dr. Clemente was her at 4 or 5 this morning", and that "I am going to a [facility]". He is agreeable to discussing hospice, unsure if he has funds for SNF hospice care or if he will need to go home with family assist. This RN will talk with Dr. Clemente regarding he thoughts on DC POC.
--- NOTE | 2020-04-16 12:38 | NUR ---
Follow up: Pt rehearsed spiritual themes from our previous visit, and stated he felt he "finally feel things are right between me and God." This Single Spindle Screw Machine Operator engaged with active listening as the pt shared more deeply about his wilda in [place] and how through prayer, confession and reflection he came to feel acceptance by God over the past week. He shared he has wrestled with this need over the past couple months. He stated he was grateful for the opportunities to work through his need for inner peace and reconciliation with God during this hospital stay. Single Spindle Screw Machine Operator offered prayer for Divine mercy and continued peace.
--- NOTE | 2020-04-16 16:05 | NUR ---
PALLIATIVE CARE RN has called and spoke to Estrella, Patient's step-daughter and to his brother Jonathon who assists with most of the decisions. We discussed next steps a discharge POC. Patient does not have PAULINA so any SNF with Hospice would be an out of pocket expense for the patient. Jonathon did say he is not wanting patient to go to [facility] but has agreed to this RN looking into [facility] and [facility]. I am also going to inquire about a RESPITE hospice admission.
--- NOTE | 2020-04-17 10:10 | NUR ---
PALLIATIVE CARE RN in to see patient. He is relatively unchanged in his decline today. Still able to converse and make some sense. He was talking a lot about his brother today, sikhism, and his time at [facility]. Although his word were clear he would switch subjects without warning and then occasionally tie it back. Pretty impressive really. He is not eating or drinking much. He appears weak and pale. I have called a couple SNF's to see what there daily rate is, awaiting -[facility] to return my call. I will call his brother Jonathon to update him and see if patient has any ability to pay an hka-oe-clhqyg rate until he passes. His brother and KELVIN are unable to care for the patient at home. His son is not in the picture and his
--- NOTE | 2020-04-17 12:33 | Progress Note - Urology ---
Progress Note-Urology Progress Notes/Assess & Plan Progress/Assessment & Plan GOING HOME TODAY AND WILL SEE THE [facility] DR TOMORROW. PLAN REEXPLAINED TO PATIENT Final Diagnosis GROSS HEMATURIA JESSIE SY MD Apr 17, 2020 12:33
--- NOTE | 2020-04-17 14:55 | NUR ---
CM/SS follow up. The patient was lying in bed resting. He woke easily to sound. The patient started speaking quietly. He was able to answer simple questions but was unable to track conversation and often started speaking about other things. The patient did not appear to be uncomfortable or in pain at time of visit. He was pleasant and did state he "believes he is going to ". The patient held this sw hand and denied any further needs at this time. CM/SS will continue to follow.
--- NOTE | 2020-04-17 18:39 | Progress Note ---
Subjective Date Seen by a Provider: Apr 17, 2020 Time Seen by a Provider: 08:30 Subjective/Events-last exam Fwup comfort care. Patient awake and talking but confused. Poor oral intake. Does not appear in pain. Objective Exam Vital Signs Date Time Temp Pulse Resp B/P (MAP) Pulse Ox O2 Delivery O2 Flow Rate FiO2 04/17/20 08:00 Room Air 04/16/20 19:37 Room Air I & O 04/17/20 07:00 Intake Total 200 ml Output Total 1000 ml Balance -800 ml Capillary Refill : Less Than 3 SecondsLess Than 3 Seconds General Appearance: Mild Distress Neurologic/Psychiatric: Alert, Disoriented Skin: Warm/Dry Results Lab Microbiology 04/06/20 Blood Culture - Final, Complete No growth Assessment/Plan Assessment/Plan Assess & Plan/Chief Complaint 1. Patient on comfort care--awaiting NH placement with hospice GLADYS ORONA DO Apr 17, 2020 18:39
--- NOTE | 2020-04-18 12:36 | Progress Note ---
Subjective Date Seen by a Provider: Apr 18, 2020 Time Seen by a Provider: 12:36 Subjective/Events-last exam Fwup comfort care. Patient awake and talking. Drinking better today. Objective Exam Vital Signs Date Time Temp Pulse Resp B/P (MAP) Pulse Ox O2 Delivery O2 Flow Rate FiO2 04/18/20 08:00 Room Air 04/18/20 07:15 Room Air 04/17/20 19:29 Room Air I & O 04/18/20 07:00 Intake Total 150 ml Output Total 1025 ml Balance -875 ml Capillary Refill : Less Than 3 SecondsLess Than 3 Seconds General Appearance: No Apparent Distress Neurologic/Psychiatric: Alert, Disoriented Results Lab Microbiology 04/06/20 Blood Culture - Final, Complete No growth Assessment/Plan Assessment/Plan Assess & Plan/Chief Complaint 1. Patient on comfort care--awaiting NH placement with hospice GLADYS ORONA DO Apr 18, 2020 12:36
--- NOTE | 2020-04-18 15:35 | NUR ---
DISCHARGE PLAN: Patient has been accepted to [facility] for placement tomorrow. Called and spoke to brother Jonathon acceptance by [facility] and then about hospice choices beginning with [facility]. After discussing all options and answering his questions. He declined the option to have one or more call him for discussion. He ultimately ended with the choice of [facility]. I have notified Dr. Clemente of choice hospice and acceptance by [facility] for admission tomorrow.
--- NOTE | 2020-04-18 15:45 | NUR ---
Follow up visit by [facility]. Offered active listening. Pt said he missed a call from a friend, whom he was going to call back. Pt continues to explore themes of self-forgiveness and reconciliation with God. Expressed felt need to be certain of forgiveness. Pt was open to prayer.
[2020-04-19 07:25] VITALS: BP 197/79
[2020-04-19] MEDS: SCOPOLAMINE 1.5 MG (TRANSDERM-SCOP) PATCH TOP SCH (10:14)
--- NOTE | 2020-04-19 10:30 | NUR ---
Palliative Care/DISCHARGE PLAN: Went to assess patient this morning. He is laying in bed and is easily awakened. He is clear in his mentation today and NOT on board with the discharge plan to [facility]. He does not remember or believe that he refused the biopsy of the mass near his spine saying "BULL CRAP..anybody who has cancer wants to know what it is!". Plan was for discharge today to [facility] with [facility] but not sure that this is still the plan due to his mentation improvement.
[2020-04-19] MEDS ORDERED: CARB1DRO OU (13:12)
[2020-04-19] MEDS ORDERED: LORA2ORA PO (13:12)
[2020-04-19] MEDS ORDERED: ACET650S15 PR (13:12)
[2020-04-19] MEDS ORDERED: SCOP1PAT11 TOP (13:12)
[2020-04-19] MEDS ORDERED: MORP20SO PO (13:12)
[2020-04-19] MEDS ORDERED: SALI45SP MM (13:12)
--- NOTE | 2020-04-19 13:31 | NUR ---
CM/SS follow up. The patient was lying in bed resting when this sw visited. He woke easily. The patient was alert and oriented x4 during this visit. The patient's speech was more clear than last visit but still a little mumbled. The patient stated that he was feeling a little better today but was wondering about his Biopsy. A lunch tray was delivered during visit. The patient reported he would like to try and eat. CM/SS had [facility] RN assist with moving patient up in bed. He denied any further needs at this time. Patient is discharging to [facility] today 04/19.
--- NOTE | 2020-04-19 13:32 | NUR ---
DISCHARGE PLANNING: Dr. Clemente and this RN in to discuss with the patient the POC for discharge. After a long discussion with doctor, he has agreed to discharge to [facility] with [facility] for EOL care. Will need to call EMS for transport...all forms faxed to them already. Nurse to Finalize discharge discharge orders. Will need to notify the facility [phone] when EMS leaves the hospital Will need to notify [facility] [phone] when patient leaves the hospital
--- NOTE | 2020-04-19 14:05 | NUR ---
report called to SAVANNA Patel at [facility] at this time. Rasmussen catheter left in per comfort care orders. patient will discharge to this home with hospice.
[2020-04-19 17:57] VITALS: BP 197/79
--- NOTE | 2020-04-19 17:58 | Discharge Summary ---
Diagnosis/Chief Complaint Date of Admission Apr 06, 2020 at 20:00 Date of Discharge Discharge Date: Apr 19, 2020 Discharge Diagnosis 1. Acute Rhabdomyolysis--resolved 2. Hypokalemia/Hypomagnesemia--improved 3. 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 Bilateral Pleural Effusions/Right Sided Pneumonia--treatment DCed when went on comfort care 5. DMII--on SSI 6. Hypertension--DCed meds on comfort care 7. Weakness/Debility--refused PT/OT prior to comfort care then DCed after comfort care 8. History of Atrial Fibrillation--stable 9. COPD/Tobacco Abuse--ongoing 10. Slurred Speech/Confusion--improving, likely RIND or hypertensive encephalopathy with improvement after resuming blood thinners and better BP control Discharge Summary Hospital Course Was the Problem List Reviewed?: Yes Hospital Course This is a 80 year old male admitted initially to acute care with acute rhabdomyolysis with hypokalemia and hypomagnesemia after he sustained a fall and wasn't found for 18 hours. He was found to have a worsening right renal mass with spread into lymph nodes and into L2. He was admitted and given IVFs as well as replacement of potassium and magnesium. His electrolytes improved as we ll as his rhabdomyolysis. He did have bilateral pleural effusions. He also had bilateral lower extremity edema and was started on IV lasix. He underwent a swallow evaluation with ST due to choking and was placed on a dysphagia [address]-guided biopsy of the renal mass was ordered to be accomplished by radiology but the patient refused to sign consent for the biopsy. He had been told that due to his poor health status and numerous comorbidities that he would likely not tolerate chemotherapy. He became confused with garbled speech so a CT scan was done which showed no acute stroke. However do to worsening agitation and confusion a CTA of the brain and neck were ordered. Once again, this showed no acute ischemic events or stroke. His blood thinners had been held for his renal biopsy so aspirin and lovenox were restarted after he refused the biopsy. His CXR looked like worsening infiltrate with his WBC count worsening as well so he was given IV zosyn and this was then changed to maxipime due to worsening of the appearance of his CXR. He continued to have worsening confusion and garbled speech and his CXR worsened with almost complete white out of the right side of his lung. His poor condition was discussed with both his brother and daughter and they decided on comfort care. All his medications were stopped an he was placed on comfort care orders with anticipation that he would likely have worsening and respiratory failure due to the appearance of his CXR. However, the patient started to have more understandable speech but remained confused. It was felt that he likely had sustained some ischemia causing his garbled speech and confusion and when his aspirin and lovenox were restarted that he slowly had improvement in his stroke-like symptoms. His plan of care was then switched to discharge to a NH with hospice. Once again, the family was in agreement with this plan. On the day of discharge, the patient was initially refusing to go the the NH with hospice. He was asking about the renal biopsy and treatment options. We once again discussed that he had refused the renal biopsy and that he was still not a great candidate for chemotherapy due to his frail condition. The patient's appetite had picked up slightly but he was extremely weak. He said we should just give it some time and see how it goes and I explained that is what we were trying to do with discharging him to a NH with hospice. Focus on quality of life and comfort and see how it goes. He does understand that this appears to be an aggressive cancer as it has enlarged and metastasized in just 5 weeks from his last scan. He will be discharged to [facility]. I will do a video visit with him in 2 weeks. Procedures None. Discharge Physical Examination Allergies: Coded Allergies: No Known Drug Allergies (Unverified , 06/02/10) Vitals & I&Os Vital Signs Date Time Temp Pulse Resp B/P (MAP) Pulse Ox O2 Delivery O2 Flow Rate FiO2 04/19/20 13:48 36.2 Room Air 04/19/20 07:55 93 04/19/20 07:25 60 18 197/79 (118) 04/13/20 08:00 2.00 General Appearance: Alert, Oriented X3, No Acute Distress Respiratory: Clear to Auscultation, Other (diminished) Cardiovascular: Regular Rate, Other (S4) Abdominal: Normal Bowel Sounds, Soft, No Tenderness Neuro: Other (generalized weakness) Psych/Mental Status: Other (more alert and less confused today) Discharge Home Medications Reviewed and agree with Discharge Medication list on patient's Discharge Instruction sheet Instructions to Patient/Family Please see electronic discharge instructions given to patient. GLADYS ORONA DO Apr 19, 2020 17:58
== END 2020-04-19 17:57 | disposition hospice, inpatient (51) | DRG 557 ==
LOC: EDUNIT# 17:50 → ER 17:52 → 4TH 20:00
PROVIDERS: ADMIT Family Medicine; ATTEND Family Medicine
DX: M62.82 Rhabdomyolysis (principal); J18.9 Pneumonia, unspecified organism; I63.9 Cerebral infarction, unspecified; C64.1 Malignant neoplasm of right kidney, except renal pelvis; C77.2 Secondary and unspecified malignant neoplasm of intra-abdominal lymph nodes; C79.51 Secondary malignant neoplasm of bone; J90 Pleural effusion, not elsewhere classified; I67.4 Hypertensive encephalopathy; Z51.5 Encounter for palliative care; Z66 Do not resuscitate; Z20.822 Contact with and (suspected) exposure to COVID-19; E87.6 Hypokalemia; E83.42 Hypomagnesemia; E11.9 Type 2 diabetes mellitus without complications; I11.0 Hypertensive heart disease with heart failure; I50.9 Heart failure, unspecified; I48.91 Unspecified atrial fibrillation; J44.9 Chronic obstructive pulmonary disease, unspecified; F17.210 Nicotine dependence, cigarettes, uncomplicated; R47.81 Slurred speech; R41.0 Disorientation, unspecified; I25.10 Atherosclerotic heart disease of native coronary artery without angina pectoris; E78.00 Pure hypercholesterolemia, unspecified; K21.9 Gastro-esophageal reflux disease without esophagitis; M19.91 Primary osteoarthritis, unspecified site; E83.51 Hypocalcemia; F32.9 Major depressive disorder, single episode, unspecified; H91.90 Unspecified hearing loss, unspecified ear; D64.9 Anemia, unspecified; N40.0 Benign prostatic hyperplasia without lower urinary tract symptoms; R31.0 Gross hematuria; F03.90 Unspecified dementia, unspecified severity, without behavioral disturbance, psychotic disturbance, mood disturbance, and anxiety; I25.2 Old myocardial infarction; Z91.81 History of falling; Z95.0 Presence of cardiac pacemaker; Z87.01 Personal history of pneumonia (recurrent); Z86.73 Personal history of transient ischemic attack (TIA), and cerebral infarction without residual deficits; Z79.84 Long term (current) use of oral hypoglycemic drugs; Z79.82 Long term (current) use of aspirin; Z80.52 Family history of malignant neoplasm of bladder; Z83.3 Family history of diabetes mellitus
CPT/HCPCS: 36415; 51702; 70450; 70496; 70498; 71045; 71046; 74177; 80048; 80053; 81000; 82550; 82962; 83605; 83735; 83880; 84132; 84145; 84439; 84443; 85007; 85025; 85027; 85610; 85730; 87040; 87635; 93005; 94640; 94760; 96361; 96365